=== PATIENT | male | born 1955 | race Caucasian/White ===

== ENCOUNTER 2017-04-09 18:31 | Inpatient (IN) | payer OTHER, MEDICARE ==
[~2017-04-09] VITALS: Ht 177.8 cm; Wt 79.9 kg
[~2017-04-09 18:31] MED LIST: ABILIFY MAINTE400 M1 IM; ASPIRIN EC81 M1 PO; ATORVASTATIN CA40 M1 PO; BENZTROPINE ME0.5 M1 PO; BENZTROPINE2 MG/2 ML IM; CARBAMAZEPINE100 M2 PO; CARVEDILOL12.5 M1 PO; CARVEDILOL25 M1 PO; EPOGEN4000 UNIT/ IV; FAMOTIDINE20 M1 PO; FERROUS SULFAT325 M3 PO; FUROSEMIDE80 M1 PO; GABAPENTIN100 M2 PO; GABAPENTIN300 M2 PO; HALOPERIDOL5 MG/1 M1 IM; HYDRALAZINE HCL10 M1 PO; IBUPROFEN600 M1 PO; LABETALOL HCL100 M1 PO; LABETALOL HCL200 M1 PO; LAMICTAL100 M2 PO; LAMICTAL150 M1 PO; LAMOTRIGINE150 M1 PO; LASIX40 M1 PO; LISINOPRIL20 M1 PO; METOLAZONE5 M1 PO; NEPHRO-VITE RX1 EACH PO; NEPHRO-VITE TA0.8 MG PO; NEURONTIN300 M1 PO; NITROGLYCERIN1 EACH TOP; NORVASC10 M1 PO; OMEPRAZOLE20 M2 PO; OXCARBAZEPINE600 M1 PO; PROCRIT3000 UNIT/ IV; PROPRANOLOL HCL10 M1 PO; QUETIAPINE FUM100 M1 PO; QUETIAPINE FUMA25 M1 PO; RENA-VITE RX T1 EACH PO; RENVELA800 M1 PO; SENSIPAR30 M1 PO; SENSIPAR60 M1 PO; SEROQUEL200 M1 PO; SEROQUEL400 M1 PO; SEROQUEL50 M1 PO; SODIUM POL15 GM/601 PO; SPIRIVA18 MCG INH; TRILEPTAL150 M1 PO; TRILEPTAL300 M1 PO; TYLENOL325 M1 PO; VELPHORO500 M1 PO; VENTOLIN HFA18 GM INH
--- NOTE | 2017-04-09 19:08 | ED DYSPNEA/ASTHMA COMPLAINT ---
History of Present Illness General Chief Complaint: Dyspnea (COPD, CHF, Other) Stated Complaint: "I CANT BREATHE" Source: patient Exam Limitations: no limitations Vital Signs & Intake/Output Vital Signs & Intake/Output Vital Signs Date Time Temp Pulse Resp B/P B/P Pulse O2 O2 Flow FiO2 Mean Ox Delivery Rate 04/09 2150 Room Air 04/09 1835 98.1 105 22 165/92 96 Room Air Allergies Coded Allergies: chlorpromazine (From THORAZINE) (Severe, ANAPHYLAXIS 02/19/17) trifluoperazine (From STELAZINE) (Severe, ANAPHYLAXIS 10/03/15) lithium (PER PT "KILLED MY KIDNEYS" 01/24/17) venom-honey bee (BEE VENOM (HONEY BEE)) (UNKNOWN 10/03/15) Reconcile Medications Albuterol Sulfate (Ventolin Hfa) 90 MCG HFA.AER.AD 1 INHAL INH Q4P PRN asthma Aripiprazole (Abilify Maintena) 400 MG SUSER.VIAL 400 MG IM Q30D ANXIETY ( Reported) Aspirin (Ecotrin*) 81 MG TABLET.DR 1 TAB PO 0800 cardiac prohylaxis Atorvastatin Calcium 40 MG TABLET 1 CAP PO 1700 HYPERCHOLESTEROLEMIA Benztropine Mesylate 0.5 MG TABLET 1 TAB PO BID EPSE (Reported) Cinacalcet HCl (Sensipar) 30 MG TABLET 1 TAB PO DAILY dialysis Epoetin Florentino (Procrit) 3,000 UNIT/ML VIAL 3,000 UNIT IV TuThSa anemia Furosemide (Lasix) 40 MG TABLET 2 TAB PO 0800,2200 DIURETIC Gabapentin 300 MG CAPSULE 1 TAB PO AT BEDTIME insomnia Hydralazine HCl 10 MG TABLET 2 TAB PO BID htn Labetalol HCl 100 MG TABLET 1 TAB PO BID htn Lamotrigine (Lamictal) 150 MG TABLET 1 TAB PO DAILY THYMOLEPTIC Nephro-Vitamins (Nephro-Tara Tablet) 0.8 MG TABLET 1 TAB PO 1000 supplement Nitroglycerin (Nitroglycerin Patch) 0.4 MG/HOUR PATCH.TD24 1 PAT TOP DAILY NEEDED PRN CHEST PAIN Oxcarbazepine (Trileptal) 150 MG TABLET 4 TAB PO BID mood stabilizer Propranolol HCl 10 MG TABLET 1 TAB PO BID htn Quetiapine Fumarate 100 MG TABLET 4 TAB PO AT BEDTIME mood stabilizer Sevelamer Carbonate (Renvela) 800 MG TABLET 3 TAB PO TIDAC DIALYSIS Sevelamer Carbonate (Renvela) 800 MG TABLET 2 TAB PO Q4P PRN dialysis Tiotropium [place] (Spiriva) 18 MCG CAP.W.DEV 1 INHAL INH DAILY copd Triage Note: PT WAS DISCHARGED FROM [facility] AFTER HAVING CARDIAC CATH, PT IS DIALYSIS PT AND HAD DIALYSIS TODAY, COMPLAINS THAT HE CANT BREATHE O2 SAT 96 % ON RA. CATH WAS 03/27/17. WENT INTO CARDIAC ARREST WHILE IN [facility] AND WAS IN ICU X 6 DAYS Triage Nurses Notes Reviewed? yes Onset: Gradual Duration: hour(s): Timing: recent history Severity: moderate Activities at Onset: none Prior Episodes/Possible Cause: occasional episodes Modifying Factors: Improves With: rest. Associated Symptoms: "I couldn't breathe" HPI: 61 yo gentleman cardiac arrest in Feb 2017, s/p stents at [facility] presents with 3-4 hours of shortness of breath, now resolved. He notes, "I just could breathe." Without wheezing, cough, phlegm, orthopnea. He had dialysis today which was uneventful. He is otherwell, without fever, chills, nausea, vomiting, diarrhea, syncopal symptoms. Past History Travel History Traveled to [place] past 21 day No Medical History Any Pertinent Medical History? 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 History of MRSA: No History of VRE: No History of CDIFF: No Influenza Vaccine: 01/29/17 Surgical History Surgical History: Lt. AV fistula Psychosocial History Who do you live with Brother Services at Home None What is your primary language Uzbek Tobacco Use: Never used ETOH Use: denies use Illicit Drug Use: denies illicit drug use Family History Family History, If Any: FATHER (hypertension). ; Cause: Renal cell cancer. BROTHER (GB stone, bipolar disorder, premature coronary artery disease). Hx Contributory? No Review of Systems Review of Systems Constitutional: Reports: no symptoms. EENTM: Reports: no symptoms. Respiratory: Reports: no symptoms. Cardiovascular: Reports: no symptoms. GI: Reports: no symptoms. Genitourinary: Reports: no symptoms. Musculoskeletal: Reports: no symptoms. Skin: Reports: no symptoms. Neurological/Psychological: Reports: no symptoms. Hematologic/Endocrine: Reports: no symptoms. Immunologic/Allergic: Reports: no symptoms. All Other Systems: Reviewed and Negative Physical Exam Physical Exam General Appearance: well developed/nourished, no apparent distress Head: atraumatic, normal appearance Eyes: Bilateral: normal appearance. Ears, Nose, Throat: normal pharynx, normal ENT inspection Neck: normal inspection, supple, full range of motion Respiratory: mild rhonchi, no wheeze, no rales Cardiovascular: regular rate/rhythm Gastrointestinal: normal bowel sounds, soft, non-tender, no organomegaly Rectal: BLACK STOOL, GUIAC POSITIVE. Extremities: normal inspection, normal capillary refill, normal range of motion, no edema Neurologic/Psych: no motor/sensory deficits, awake, alert, oriented x 3 Skin: intact, normal color, warm/dry Core Measures ACS in differential dx? Yes No ASA d/t asa ordered CVA/TIA Diagnosis No Sepsis Present: No Sepsis Focused Exam Completed? No Progress Differential Diagnosis: asthma, AMI, CHF, COPD, unstable angina Plan of Care: Orders Procedure Date/time Status TYPE & SCREEN (NOT X-MATCH) 04/09 220 Active LEUKOCYTE POOR (PACKED CELLS) 04/09 210 Active Telemetry/Flying Teacher 04/09 185 Active TROPONIN LEVEL 04/09 184 Complete COMPREHENSIVE METABOLIC PANEL 04/09 184 Complete CBC WITHOUT DIFFERENTIAL 04/09 1843 Complete EKG 04/09 183 Active Laboratory Tests 04/09/172025: CBC w Diff NO MAN DIFF REQ, RBC 1.75 L, MCV 91.8, MCH 31.2 H, RDW 20.0 H, MPV 7.7, Gran % 68.0, Lymphocytes % 19.1 L, Monocytes % 8.1, Eosinophils % 4.4, Basophils % 0.4, Absolute Granulocytes 5.9, Absolute Lymphocytes 1.7, Absolute Monocytes 0.7 H, Absolute Eosinophils 0.4, Absolute Basophils 0, PUBS MCHC 34.0 04/09/171946: Anion Gap 13, Estimated GFR 10 L, BUN/Creatinine Ratio 16.2, Glucose 91, Calcium 8.1 L, Total Bilirubin 0.5, AST 23, ALT 27, Alkaline Phosphatase 182 H , Troponin I 0.03, Total Protein 5.2 L, Albumin 2.8 L, Globulin 2.4, Albumin/ Globulin Ratio 1.2 Diagnostic Imaging: Viewed by Me: Radiology Read. Discussed w/RAD: Radiology Read. CXR Impression: RIGHT SIDED INFILTRATE VS ATELECTASIS (most likely atelectasis) FULL REPORT BELOW PATIENT: PURA DONALDSON PRESENT AGE : 61 PATIENT ACCOUNT NO: [id number] : 59 LOCATION: [facility] ORDERING PHYSICIAN: Shyam Nicolas MD SERVICE DATE: 04/09/17 EXAM TYPE: RAD - XRY-PORTABLE CHEST XRAY EXAMINATION: XR PORTABLE CHEST CLINICAL INFORMATION: Chest pain. COMPARISON: Chest x-ray from 03/10/2017. TECHNIQUE: Portable frontal view of the chest was obtained. FINDINGS: There is mild patchy opacity in the right lung base. The left lung is clear. The cardiomediastinal silhouette is unchanged compared to the prior study. The central pulmonary vasculature appear normal. There may be a small right-sided subpulmonic pleural effusion. No acute osseous abnormality is seen. IMPRESSION: Mild patchy opacity in the right lower lobe is nonspecific and may be due to pneumonia, aspiration, or atelectasis. Clinically correlate. Suspected small subpulmonic pleural effusion on the right side. DICTATED BY: Shyam Powell MD DATE/TIME DICTATED:04/09/171936 MOLD RUNNER:IZABEL DATE/TIME TRANSCRIBED:04/09/171936 CONFIDENTIAL, DO NOT COPY WITHOUT APPROPRIATE AUTHORIZATION. <Electronically signed in Other Vendor System> SIGNED BY: Shyam Powell MD 04/09/171941 Initial ED EKG: non specific conduction delay. Departure Departure Disposition: STILL A PATIENT Condition: Stable Clinical Impression Primary Impression: Dyspnea Secondary Impressions: Anemia, GI bleed, Unstable angina Referrals: Ashok Durand MD (PCP/Family) Departure Forms: Customer Survey General Discharge Information Comments 04/09/17, 22:10... discussed with dr. sherry oliveros (GI). pt stable for gen med, scope in AM, will not be able to d/c his antiplatlet agents due to recent cardiac stent. Admission Note Spoke With: Ashok Durand MD Documentation of Exam: Documentation of any treatments & extenuating circumstances including Concerns Regarding Discharge (functional status, medication knowledge or non-compliance, living conditions, etc.) that warrant an admission rather than observation: pt with esrd, on hemodialysis, recent cardiac arrest, with hct 16.... not orthostatic... pt merits blood transfusion, serial trops/ekg, cards, gi, renal eval in AM. Critical Care Note Critical Care Note Critical Care Time: 30-74 min
--- NOTE | 2017-04-09 19:42 | RADIOLOGY REPORT ---
EXAMINATION: XR PORTABLE CHEST CLINICAL INFORMATION: Chest pain. COMPARISON: Chest x-ray from 03/10/2017. TECHNIQUE: Portable frontal view of the chest was obtained. FINDINGS: There is mild patchy opacity in the right lung base. The left lung is clear. The cardiomediastinal silhouette is unchanged compared to the prior study. The central pulmonary vasculature appear normal. There may be a small right-sided subpulmonic pleural effusion. No acute osseous abnormality is seen. IMPRESSION: Mild patchy opacity in the right lower lobe is nonspecific and may be due to pneumonia, aspiration, or atelectasis. Clinically correlate. Suspected small subpulmonic pleural effusion on the right side.
[2017-04-09 20:38] LABS: ABSOLUTE BASOPHIL COUNT 0 /CUMM (0.0-0.2); ABSOLUTE EOSINOPHIL COUNT 0.4 /CUMM (0.0-0.7); ABSOLUTE GRANULOCYTE CT 5.9 /CUMM (1.4-6.5); ABSOLUTE LYMPH COUNT 1.7 /CUMM (1.2-3.4); ABSOLUTE MONOCYTE COUNT 0.7 /CUMM (0.10-0.60); BASOPHIL % 0.4 % (0.0-2.0); EOSINOPHIL % 4.4 % (0-5); MEAN CORPUSCULAR HGB 31.2 PG (27.0-31.0); MEAN CORPUSCULAR VOLUME 91.8 FL (80.0-94.0); MEAN PLATELET VOLUME 7.7 FL (7.4-10.4); PLATELET COUNT 315 /CUMM (130-400); RED BLOOD CELL CT 1.75 /CUMM (4.70-6.10); WHITE BLOOD CELL COUNT 8.7 /CUMM (4.8-10.8)
[2017-04-09 20:46] LABS: HEMATOCRIT 16.1 % (42-52)
--- NOTE | 2017-04-09 22:31 | History & Physical ---
See Addendum David FLEMING,[facility] 04/09/17 7781: General Information and HPI MD Statement: I have seen and personally examined PURA DONALDSON and documented this H&P. The patient is a 61 year old M who presented with a patient stated chief complaint of [SOB]. Source of Information: patient Exam Limitations: ?dementia as patient is unable to remember name of several of his healthcare providers History of Present Illness: 61 yo M active smoker with pmhx of ESRD on dialysis, HFrEF (EF 45-50% on ) hypertension, hyperlipidemia, bipolar disorder, asthma, COPD, seizure history, depression, recently went into cardiac arrest on the [employer] for stent placement presenting for shortness of breath. The patient states that he has been feeling shortness of breath the past 2 weeks of little exertion. Also complaints of chest pain during this time which is worse with exertion and radiating to his left neck. The emergency department patient's hemoglobin and hematocrit were 5.1/16.1. The patient denies any bleeding and states that his stools have been normal colored. He denies any black, tarry stool or bright red blood per rectum. The patient does state that he has noticed increased bruising in particularly around his abdominal umbilicus. Patient denies any trauma. He denies any headaches, fevers, chills, abdominal pain, or changes in elimination. The ED physician stated that the patient had guaiac positive black stool. Allergies/Medications Allergies: Coded Allergies: chlorpromazine (From THORAZINE) (Severe, ANAPHYLAXIS 02/19/17) trifluoperazine (From STELAZINE) (Severe, ANAPHYLAXIS 10/03/15) lithium (PER PT "KILLED MY KIDNEYS" 01/24/17) venom-honey bee (BEE VENOM (HONEY BEE)) (UNKNOWN 10/03/15) Home Med list Albuterol Sulfate (Ventolin Hfa) 90 MCG HFA.AER.AD 1 INHAL INH Q4P PRN asthma Aripiprazole (Abilify Maintena) 400 MG SUSER.VIAL 400 MG IM Q30D ANXIETY ( Reported) Aspirin (Ecotrin*) 81 MG TABLET.DR 1 TAB PO 0800 cardiac prohylaxis Atorvastatin Calcium 40 MG TABLET 1 CAP PO 1700 HYPERCHOLESTEROLEMIA Benztropine Mesylate 0.5 MG TABLET 1 TAB PO BID EPSE (Reported) Cinacalcet HCl (Sensipar) 30 MG TABLET 1 TAB PO DAILY dialysis Epoetin Florentino (Procrit) 3,000 UNIT/ML VIAL 3,000 UNIT IV TuThSa anemia Furosemide (Lasix) 40 MG TABLET 2 TAB PO 0800,2200 DIURETIC Gabapentin 300 MG CAPSULE 1 TAB PO AT BEDTIME insomnia Hydralazine HCl 10 MG TABLET 2 TAB PO BID htn Labetalol HCl 100 MG TABLET 1 TAB PO BID htn Lamotrigine (Lamictal) 150 MG TABLET 1 TAB PO DAILY THYMOLEPTIC Nephro-Vitamins (Nephro-Tara Tablet) 0.8 MG TABLET 1 TAB PO 1000 supplement Nitroglycerin (Nitroglycerin Patch) 0.4 MG/HOUR PATCH.TD24 1 PAT TOP DAILY NEEDED PRN CHEST PAIN Oxcarbazepine (Trileptal) 150 MG TABLET 4 TAB PO BID mood stabilizer Propranolol HCl 10 MG TABLET 1 TAB PO BID htn Quetiapine Fumarate 100 MG TABLET 4 TAB PO AT BEDTIME mood stabilizer Sevelamer Carbonate (Renvela) 800 MG TABLET 3 TAB PO TIDAC DIALYSIS Sevelamer Carbonate (Renvela) 800 MG TABLET 2 TAB PO Q4P PRN dialysis Tiotropium [place] (Spiriva) 18 MCG CAP.W.DEV 1 INHAL INH DAILY copd Past History Travel History Traveled to [place] past 21 day No Medical History Neurological: SEIZURE ONCE 20 YRS AGO EENT: NONE Cardiovascular: hypertension, hyperlipidemia Respiratory: asthma, COPD Gastrointestinal: NONE Hepatic: NONE Renal: ESRD on HD, renal masses --> onchocytyomas Musculoskeletal: NONE Psychiatric: anxiety, bipolar disease (WITH PSYCHOTIC FEATURES), depression Endocrine: hypopituitarism, HYPERPARATHROIDISM Blood Disorders: NONE Cancer(s): bilateral renal masses which were 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 History of MRSA: No History of VRE: No History of CDIFF: No Surgical History Surgical History: Lt. AV fistula Past Family/Social History Family History Relations & Conditions if any FATHER (hypertension). ; Cause: Renal cell cancer. BROTHER (GB stone, bipolar disorder, premature coronary artery disease). Psychosocial History Services at Home: None Primary Language: Tongan ETOH Use: denies use Illicit Drug Use: denies illicit drug use Functional Ability ADLs Independent: dressing, eating, toileting, bathing. Ambulation: independent Review of Systems Review of Systems Constitutional: Reports: see HPI. Denies: chills, fever. Cardiovascular: Reports: chest pain. Denies: edema, palpitations. Respiratory: Reports: short of breath. Denies: cough. GI: Reports: no symptoms, see HPI (abd bruising). Genitourinary: Reports: no symptoms. Musculoskeletal: Reports: see HPI. Exam & Diagnostic Data Last 24 Hrs of Vital Signs/I&O Vital Signs Date Time Temp Pulse Resp B/P B/P Pulse O2 O2 Flow FiO2 Mean Ox Delivery Rate 04/09 2311 99.2 100 20 170/98 97 Room Air 04/09 2150 Room Air 04/09 1835 98.1 105 22 165/92 96 Room Air Intake & Output 04/10 0800 04/10 0000 04/09 1600 Intake Total 350 Output Total Balance 350 Intake, Blood 350 Product Patient 210 lb Weight Physical Exam General Appearance Alert, Cooperative, No Acute Distress Skin inferior umbilicius bruising Cardiovascular tachycardia Lungs Clear to Auscultation, Normal Air Movement Abdomen Normal Bowel Sounds, Soft, No Tenderness Extremities L arm fistula Last 24 Hrs of Labs/Freddy: Laboratory Tests 04/09/172025: CBC w Diff NO MAN DIFF REQ, RBC 1.75 L, MCV 91.8, MCH 31.2 H, RDW 20.0 H, MPV 7.7, Gran % 68.0, Lymphocytes % 19.1 L, Monocytes % 8.1, Eosinophils % 4.4, Basophils % 0.4, Absolute Granulocytes 5.9, Absolute Lymphocytes 1.7, Absolute Monocytes 0.7 H, Absolute Eosinophils 0.4, Absolute Basophils 0, PUBS MCHC 34.0 04/09/171946: Anion Gap 13, Estimated GFR 10 L, BUN/Creatinine Ratio 16.2, Glucose 91, Calcium 8.1 L, Total Bilirubin 0.5, AST 23, ALT 27, Alkaline Phosphatase 182 H , Troponin I 0.03, Total Protein 5.2 L, Albumin 2.8 L, Globulin 2.4, Albumin/ Globulin Ratio 1.2 Assessment/Plan Assessment: A: 61 yo M active smoker with pmhx of ESRD on dialysis, HFrEF (EF 45-50% on ) hypertension, hyperlipidemia, bipolar disorder, asthma, COPD, seizure history, depression, recently went into cardiac arrest on the [employer] for stent placement presenting for shortness of breath found to have anemia with guaiac positive stool. P: #anemia (symptomatic) Could be secondary to dual antiplatelet therapy post stent placement T99 0.2, heart rate 100, RR 20, BP 170/98, 97% RA H/H 5.5/16.1 with guaciac + stool -Transfuse 3 units of blood, assess respiratory status after second unit and give IV Lasix if necessary -Hemoglobin goal greater than 8 given cardiac history -GI informed (rhina) -Protonix IV 40 daily #atypical chest pain, r/o ACS Recent cardiac arrest during cardiac catheter with stent placement at [facility] requiring ICU for 6 days trop .03 - EKG trops x1 7AM -confirm medication list in a.m. particularly antiplatelets -pt states he will get it from his brother -obtain records from [facility] regarding cardiac arrest -Cardiology consult (Dr. Garcia's group) #ESRD L arm fistula BUN 94, creatinine 5.8, -Consult nephrology -Continue Nephro-Tara, sevelamer, Sensipar, Procrit injections #bipolar disorder/depression -cont benztropine, ariprazole, seroquel -psych consult in a.m. #chf -cont lasix, aspirin #copd -cont spiriva, albuterol #HTN -cont propanoll, labetalol and hydralazine #hld -cont atorvastatin #seizure hx -cont oxacarbazpine, lamotrigeine #gerd -cont protonix #neuropathy -cont gabapentin #DVT prophylaxis -Alps #Full code As Ranked By This Provider Problem List: 1. Symptomatic anemia Core Measures/Misc (01/14) Acute Coronary Syndrome ACS Diagnosis: No Congestive Heart Failure Congestive Heart Failure Diagnosis No Cerebrovascular Accident CVA/TIA Diagnosis: No VTE (View Protocol) VTE Risk Factors Acute Medical Illness No Mechanical VTE Prophylaxis d/t N/A MechProphylax Ordered No VTE Pharm Prophylaxis d/t Bleeding (Active) Sepsis (View protocol) Sepsis Present: No Ty Walsh 04/10/17 0122: Resident Review Statement Resident Statement: examined this patient, discussed with general intern Other Findings: Mr Shakir is a 61 yo M active smoker with past medical history of ESRD on dialysis, HFrEF (EF 45-50% on 02/06/17) hypertension, hyperlipidemia, bipolar disorder, status post recent cardiac catheter and stents at [facility] in February 2017, cardiac arrest while in the catheter lab requiring ICU stay presented to the hospital with chief complaint of worsening shortness of breath for the last 2-3 days. Patient reports that he has been gradually feeling short of breath over the last few days. Symptoms are more pronounced during exertion and activity. Today he had dialysis, and states post dialysis or shortness of breath became worse. He does complain of some nonspecific chest pain in the center of the chest not associated with any palpitations, nausea, vomiting, abdominal pain, diarrhea or constipation. Patient denies any episode of blood in stool or urine. He recently had a cardiac catheterization and stent placement at [facility] about a week ago. Patient coded on the table and required ICU stay for about 6 days. Patient reports that post the procedure he has been doing fine. He has bipolar disorder at baseline and is unclear of the medications that he is supposed to take after the catheterization. He is unable to give us any details about the whole episode. In the ED vitals temperature 98.1, pulse 105, respiration 22, blood pressure 165 /92, saturating 96% on room air Labs :H&H of 5. 5/16.1( baseline around 9 ), sodium 135, potassium 4.5, creatinine 5.8(baseline), BUN 94, alkaline phosphatase 182, troponin 0.03 EKG normal sinus rhythm with no specific ST-T wave changes. Chest x-ray Showed mild patchy opacity in the right lower lobe nonspecific may be due to pneumonia/aspiration. Small subpulmonic pleural effusion on the right side. Patient received 325 aspirin daily. Physical exam General: Awake, alert, oriented 3, no acute distress HEENT: PERRLA, EOMI, no JVD Chest: Clear breath sounds CVS: S1 and S2 heard, regular, Extremities: No edema Assessment and plan #1 Symptomatic anemia: Guaiac positive in the ER, dark stools. Could be secondary to dual antiplatelet therapy post stent placement. -Admit patient to telemetry -Vitals per protocol -2 wide bore IVs -Patient being transfused 3 units of blood in the ED.. Given significant cardiac history the goal would be around 8 -Continue Protonix IV 40 daily -ED physician spoke to Dr. Owen who would be seeing the patient in a.m. -Stat GI consult if patient starts bleeding or becomes hemodynamically unstable #2 Recent cardiac arrest during cardiac catheter with stent placement at [facility] requiring ICU stay now complaining of atypical chest pain -Closely monitor on telemetry -3 sets of troponin and EKG to rule out ACS -Patient is unable to give any details of the incident -His med list does not does have Plavix. Please confirm medication list in a.m. -We'll obtain records from [facility] regarding the whole episode. -Cardiology consult with Dr. Davis's group in a.m. #3 Atypical chest pain -Close monitoring on telemetry -3 sets of troponin and EKG to rule out ACS -Nitro-Bid Ointment if chest pain continues -Continue aspirin and beta bharat -Cardiology consult in a.m. -No EKG changes, negative troponin so far #4 end-stage renal disease on dialysis -Patient is getting a lot of volume blood transfusion. -Please consult nephrology in a.m. -Continue Nephro-Tara and sevelamer and Sensipar -Continue Procrit injections #5 history of bipolar disorder/depression -Continue home medications Cogentin, Abilify, Lamictal , Seroquel, Neurontin -psych consult in a.m. #6 History of hypertension Will Continue the patients home medications of labetalol and hydralazine 20mg BID DVT prophylaxis Alps Renal dialysis diet Full code Verona Quiroz 04/16/172047: Attending MD Review Statement Attending Statement Attending Assessment/Plan: I have not seen this patient. This H and P is assigned to me by mistake. Please see Dr. Durand's recommendations.
--- NOTE | 2017-04-10 08:36 | PN- Housestaff ---
Subjective Follow-up For: Symptomatic anemia. Atypical chest pain End-stage renal disease Tele-Events Since Last Visit: No overnight events Subjective: No overnight events patient remained afebrile overnight. Patient seen and examined this morning on bedside. He was lying in bed comfortably. Patient still complaining of exertional dyspnea but he is seeing his feeling more better now and also complaining of little bit pressure in the chest but he denied pain in the chest, short of breath, nausea, vomiting, abdominal pain, chills, fever and dysuria. Patient received 3 blood transfusions in ED. We will follow his CBCs after the blood transfusion Review of Systems Constitutional: Reports: no symptoms. EENTM: Reports: no symptoms. Cardiovascular: Reports: see HPI. Respiratory: Reports: see HPI. Gastrointestinal: Reports: no symptoms. Genitourinary: Reports: no symptoms. Neurological/Psychological: Reports: no symptoms. Objective Last 24 Hrs of Vital Signs/I&O Vital Signs Date Time Temp Pulse Resp B/P B/P Pulse O2 O2 Flow FiO2 Mean Ox Delivery Rate 04/10 1034 98.2 96 18 154/86 04/10 1034 98.2 96 18 154/86 04/10 1034 98.2 96 18 154/86 04/10 1033 98.2 96 18 154/86 98 Room Air 04/10 0923 97.7 98 18 139/79 98 Room Air 04/10 0824 98.6 94 18 143/80 98 Room Air 04/10 0500 98.3 108 20 145/94 99 Room Air 04/10 0414 98.1 04/10 0355 98.1 110 20 167/89 100 Room Air 04/10 0239 99.2 04/09 2311 99.2 100 20 170/98 97 Room Air 04/09 2150 Room Air 04/09 1835 98.1 105 22 165/92 96 Room Air Intake & Output 04/10 1600 04/10 0800 04/10 0000 Intake Total 350 Output Total Balance 350 Intake, Blood 350 Product Patient 210 lb Weight Physical Exam General Appearance: Alert, Oriented X3, Cooperative, No Acute Distress Skin Temp/Moisture Exam: Warm/Dry HEENT: Atraumatic, PERRLA, EOMI Neck: Supple Cardiovascular: Normal S1, Normal S2 Lungs: Clear to Auscultation Abdomen: Soft, No Tenderness Neurological: Normal Speech, Normal Tone, Sensation Intact Extremities: No Edema Assessment/Plan Assessment: 61 yo M active smoker with pmhx of ESRD on dialysis, HFrEF (EF 45-50% on ) hypertension, hyperlipidemia, bipolar disorder, asthma, COPD, seizure history, depression, recently went into cardiac arrest on the [employer] for stent placement presenting for shortness of breath found to have anemia with guaiac positive stool. Symptomatic anemia: -Patient came in with an H&H 5.5/16.1 and having exertional dyspnea and atypical chest pain. -Plan to give the patient blood transfusion. He received 3 blood transfusion in ED -We will keep the hemoglobin more than 8 considering patient's significant cardiac history in the past. -We will check the CBCs for H&H after blood transfusion. -We will get the GI consultation to rule out any active bleeding in GI tract as patient having history of black stools. -We will monitor the patient's if he become unstable hemodynamically we will give patient blood transfusion or call GI. -IV Protonix -No NSAIDs Atypical chest pain: -We will do serial EKGs and troponins to rule out any ischemic cardiac injury considering patient's significant past medical history of cardiac ischemia. -We will get the medical records from [facility] regarding patient's cardiac arrest and CPR was done during cardiac cath. -Cardiac consult -Echocardiogram History of end-stage renal disease on dialysis: -We will get the nephrology consult -Patient having AV fistula on left arm -patient is getting dialysis on sunday, and sunday. -We will check the creatinine and BUN we will follow the BEP. -We will continue the Nephro-Tara, Savelamer, sensipar and procrit injection History of bipolar disorder: We'll continue the benztropine, aripiprazole and seroquel History of CHF with systolic dysfunction, hyperlipidemia and hypertension: To continue the Lasix and aspirin -We will continue propranolol labetalol and hydralazine for hypertension. -Continue Lipitor for hyperlipidemia History of seizures: -We will continue oxcarbazpine and lamotrigine DVT prophylaxis: Mechanical and subcutaneous heparin CODE STATUS: Full code Problem List: 1. Symptomatic anemia 2. Atypical chest pain Pain Ratin Pain Location: NONE Pain Goal: Remain pain free Pain Plan: OXYCODONE FOR MILD PAIN Tomorrow's Labs & Rationales: CBC/BEP
[2017-04-10 09:45] LABS: ABSOLUTE BASOPHIL COUNT 0.1 /CUMM (0.0-0.2); ABSOLUTE EOSINOPHIL COUNT 0.3 /CUMM (0.0-0.7); ABSOLUTE GRANULOCYTE CT 4.7 /CUMM (1.4-6.5); ABSOLUTE LYMPH COUNT 1.5 /CUMM (1.2-3.4); ABSOLUTE MONOCYTE COUNT 0.5 /CUMM (0.10-0.60); BASOPHIL % 0.8 % (0.0-2.0); EOSINOPHIL % 4.2 % (0-5); GRANULOCYTE % 66.5 % (42.2-75.2); MEAN CORPUSCULAR HGB 29.9 PG (27.0-31.0); MEAN CORPUSCULAR HGB CONC 34.5 G/DL (33.0-37.0); MEAN PLATELET VOLUME 7.1 FL (7.4-10.4); PLATELET COUNT 282 /CUMM (130-400); RBC DISTRIBUTION WIDTH 20.1 % (11.5-14.5); WHITE BLOOD CELL COUNT 7.1 /CUMM (4.8-10.8)
[2017-04-10 09:57] LABS: HEMATOCRIT 18.1 % (42-52); MEAN CORPUSCULAR VOLUME 86.7 FL (80.0-94.0)
--- NOTE | 2017-04-10 10:08 | Admission Certification ---
Admission Certification Certification Statement - As attending physician, I certify that at the time of - admission, based on clinical presentation, severity of - symptoms, need for further diagnostic testing and - therapeutic interventions, and risk of adverse outcomes - without in-hospital treatment, in my clinical assessment, - this patient requires an acute hospital stay for a minimum - of two nights or longer. I have also considered psychsocial - factors such as support system, advanced age, financial - issues, cognitive issues, and failed out-patient treatments, - past re-admission history, safety of patient, and lack of - compliance as applicable. Specific rationale supporting this admission is: Shortness of breath, symptomatic anemia in a patient with chronic kidney insufficiency on hemodialysis and coronary artery disease
--- NOTE | 2017-04-10 10:12 | PN- Att Addend ---
Attending Addendum Attending Brief Note 61-year-old white male with many comorbidities, chronic kidney insufficiency on hemodialysis 3 times a week. History of CHF coronary artery disease recent stent with complications. Again comes in stating that he is short of breath , in the ER his saturations were okay, was found to be very anemic. Patient will be admitted will be cautiously transfused monitor for CHF notify nephrology for his hemodialysis, and get a GI consultation also have cardiology follow the patient. 24 TOTALS 04/10 0000 04/09 0000 Intake Total Output Total Balance Patient 210 lb Weight Laboratory Tests 04/10/17 0913: CBC w Diff NO MAN DIFF REQ, RBC 2.10 L, MCV 86.7, MCH 29.9, RDW 20.1 H, MPV 7.1 L, Gran % 66.5, Lymphocytes % 20.9, Monocytes % 7.6, Eosinophils % 4.2, Basophils % 0.8, Absolute Granulocytes 4.7, Absolute Lymphocytes 1.5, Absolute Monocytes 0.5, Absolute Eosinophils 0.3, Absolute Basophils 0.1, PUBS MCHC 34.5 04/10/17 0700: Troponin I Cancelled 04/10/17 0652: Anion Gap 15, Estimated GFR 8 L, BUN/Creatinine Ratio 18.2, Troponin I 0.02 04/10/17 0145: Troponin I 0.03 04/09/172025: CBC w Diff NO MAN DIFF REQ, RBC 1.75 L, MCV 91.8, MCH 31.2 H, RDW 20.0 H, MPV 7.7, Gran % 68.0, Lymphocytes % 19.1 L, Monocytes % 8.1, Eosinophils % 4.4, Basophils % 0.4, Absolute Granulocytes 5.9, Absolute Lymphocytes 1.7, Absolute Monocytes 0.7 H, Absolute Eosinophils 0.4, Absolute Basophils 0, PUBS MCHC 34.0 04/09/17 194: Anion Gap 13, Estimated GFR 10 L, BUN/Creatinine Ratio 16.2, Glucose 91, Calcium 8.1 L, Total Bilirubin 0.5, AST 23, ALT 27, Alkaline Phosphatase 182 H , Troponin I 0.03, Total Protein 5.2 L, Albumin 2.8 L, Globulin 2.4, Albumin/ Globulin Ratio 1.2 Vital Signs Date Time Temp Pulse Resp B/P B/P Pulse O2 O2 Flow FiO2 Mean Ox Delivery Rate 04/10 923 97.7 98 18 139/79 98 Room Air 04/10 0824 98.6 94 18 143/80 98 Room Air 04/10 0500 98.3 108 20 145/94 99 Room Air 04/10 0414 98.1 04/10 0355 98.1 110 20 167/89 100 Room Air 04/10 0239 99.2 04/09 2311 99.2 100 20 170/98 97 Room Air 04/09 2150 Room Air 04/09 1835 98.1 105 22 165/92 96 Room Air
[2017-04-10 13:20] VITALS: BP 130/72
[2017-04-10 14:51] LABS: ABSOLUTE EOSINOPHIL COUNT 0.3 /CUMM (0.0-0.7); ABSOLUTE GRANULOCYTE CT 5.5 /CUMM (1.4-6.5); ABSOLUTE LYMPH COUNT 1.7 /CUMM (1.2-3.4); MEAN CORPUSCULAR VOLUME 87.3 FL (80.0-94.0)
[2017-04-10 14:55] LABS: ABSOLUTE BASOPHIL COUNT 0.1 /CUMM (0.0-0.2); ABSOLUTE MONOCYTE COUNT 0.8 /CUMM (0.10-0.60); BASOPHIL % 0.8 % (0.0-2.0); EOSINOPHIL % 3.1 % (0-5); GRANULOCYTE % 66.2 % (42.2-75.2); MEAN CORPUSCULAR HGB 29.5 PG (27.0-31.0); MEAN CORPUSCULAR HGB CONC 33.8 G/DL (33.0-37.0); PLATELET COUNT 251 /CUMM (130-400); RBC DISTRIBUTION WIDTH 18.5 % (11.5-14.5); RED BLOOD CELL CT 2.18 /CUMM (4.70-6.10); WHITE BLOOD CELL COUNT 8.3 /CUMM (4.8-10.8)
--- NOTE | 2017-04-10 15:50 | Cons- Gastroenterology ---
General Information and HPI Consulting Request Date of Consult: 04/10/17 Requested By: Ashok Durand MD Reason for Consult: 1. Acute on Chronic Anemia 2. Hemoccult Positive Stool 3. Precipitous Drop in Hemoglobin and Hematocrit Source of Information: patient, old records Exam Limitations: poor historian History of Present Illness: Mr. Steve Sanches is a 61-year-old male with a past medical history of bipolar disorder, chronic kidney disease who is on dialysis 3 times a week. He has a history of chronic anemia with a baseline hemoglobin of around 9.5 as well as a history of coronary artery disease. He was recently admitted to [facility] in [place] where he underwent left heart catheterization and stent placement. He had a cardiac arrest on the table while undergoing cardiac catheterization and was in the ICU for 6 days. He reports that he also underwent EGD and colonoscopy during that admission for evaluation of anemia. No source of GI bleeding was identified. Patient is a poor historian. He also reports that he had an endoscopic evaluation at [facility] proximally 1 year ago but I am unable to find any record of that in the electronic medical record. Patient was discharged from [facility] and according to the biomedical engineering professor, off antithrombotic agents with the exception of aspirin given concerns regarding anemia. Patient presented to the [facility] ED with a chief complaint of increasing shortness of breath. He tells me that he had missed dialysis several times since discharge from [facility]. He did undergone cardiac catheterization on 03/27/2017. He had last been admitted to [facility] on 03/10/2017 with acute systolic congestive heart failure. At that time he had an H&H of 8.9 and 27.4. He is admitted now with an H&H of 5.1 and 16.1. He had a Hemoccult positive stool. He denies melena, bright red blood per rectum, nausea , vomiting, or abdominal pain. He is had no change in bowel habit or stool caliber. He has had no weight loss fever or shaking chills. He had a chest x-ray on admission, the results of which are as follows: IMPRESSION: Mild patchy opacity in the right lower lobe is nonspecific and may be due to pneumonia, aspiration, or atelectasis. Clinically correlate. Suspected small subpulmonic pleural effusion on the right side. Allergies/Medications Allergies: Coded Allergies: chlorpromazine (From THORAZINE) (Severe, ANAPHYLAXIS 02/19/17) trifluoperazine (From STELAZINE) (Severe, ANAPHYLAXIS 10/03/15) lithium (PER PT "KILLED MY KIDNEYS" 01/24/17) venom-honey bee (BEE VENOM (HONEY BEE)) (UNKNOWN 10/03/15) Home Med List: Albuterol Sulfate (Ventolin Hfa) 90 MCG HFA.AER.AD 1 INHAL INH Q4P PRN asthma Aripiprazole (Abilify Maintena) 400 MG SUSER.VIAL 400 MG IM Q30D ANXIETY ( Reported) Aspirin (Ecotrin*) 81 MG TABLET.DR 1 TAB PO 0800 cardiac prohylaxis Atorvastatin Calcium 40 MG TABLET 1 CAP PO 1700 HYPERCHOLESTEROLEMIA Benztropine Mesylate 0.5 MG TABLET 1 TAB PO BID EPSE (Reported) Cinacalcet HCl (Sensipar) 30 MG TABLET 1 TAB PO DAILY dialysis Epoetin Florentino (Procrit) 3,000 UNIT/ML VIAL 3,000 UNIT IV TuThSa anemia Furosemide (Lasix) 40 MG TABLET 2 TAB PO 0800,2200 DIURETIC Gabapentin 300 MG CAPSULE 1 TAB PO AT BEDTIME insomnia Hydralazine HCl 10 MG TABLET 2 TAB PO BID htn Labetalol HCl 100 MG TABLET 1 TAB PO BID htn Lamotrigine (Lamictal) 150 MG TABLET 1 TAB PO DAILY THYMOLEPTIC Nephro-Vitamins (Nephro-Tara Tablet) 0.8 MG TABLET 1 TAB PO 1000 supplement Nitroglycerin (Nitroglycerin Patch) 0.4 MG/HOUR PATCH.TD24 1 PAT TOP DAILY NEEDED PRN CHEST PAIN Oxcarbazepine (Trileptal) 150 MG TABLET 4 TAB PO BID mood stabilizer Propranolol HCl 10 MG TABLET 1 TAB PO BID htn Quetiapine Fumarate 100 MG TABLET 4 TAB PO AT BEDTIME mood stabilizer Sevelamer Carbonate (Renvela) 800 MG TABLET 3 TAB PO TIDAC DIALYSIS Sevelamer Carbonate (Renvela) 800 MG TABLET 2 TAB PO Q4P PRN dialysis Tiotropium [place] (Spiriva) 18 MCG CAP.W.DEV 1 INHAL INH DAILY copd Current Medications: Current Medications Sig/Grace Start time Last Medication Dose Route Stop Time Status Admin Acetaminophen 0 .STK-MED ONE 04/10 0233 DC PO Acetaminophen 325 MG Q6-PRN PRN 04/09 2245 AC 04/10 PO 0239 Albuterol Sulfate 2 PUF Q4P PRN 04/09 2300 AC INH Aripiprazole 10 MG DAILY 04/10 1000 AC 04/10 PO 1034 Aspirin 325 MG ONCE ONE 04/09 2015 DC 12 PO 04/09 Aspirin Buffered 81 MG 0800 04/10 0800 AC 04/10 PO 0824 Atorvastatin Calcium 40 MG 1700 04/10 1700 AC PO Benztropine Mesylate 0.5 MG BID 04/10 1000 AC 04/10 PO 1034 Cinacalcet 30 MG DAILY 04/10 1000 AC 04/10 PO 1034 Epoetin Florentino 8,000 UNIT TUES THURS SAT PRN 04/10 1500 AC IV Furosemide 80 MG 0800,2200 04/10 0800 AC 04/10 PO 0824 Gabapentin 300 MG AT BEDTIME 04/10 2200 DC PO Gabapentin 300 MG AT BEDTIME 04/10 0215 AC 04/10 PO 0239 Hydralazine HCl 20 MG BID 04/10 1000 AC 04/10 PO 1034 Labetalol HCl 100 MG BID 04/10 1000 AC 04/10 PO 1034 Lamotrigine 150 MG DAILY 04/10 1000 AC 04/10 PO 1034 Multivitamins 1 TAB 1000 04/10 1000 AC 04/10 PO 1034 Oxcarbazepine 600 MG BID 04/10 1000 AC 04/10 PO 1034 Pantoprazole Sodium 40 MG DAILY 04/10 1000 AC 04/10 IV 1034 Propranolol HCl 10 MG BID 04/10 1000 AC 04/10 PO 1034 Quetiapine Fumarate 400 MG AT BEDTIME 04/10 2200 DC PO Quetiapine Fumarate 400 MG AT BEDTIME 04/10 0215 AC 04/10 PO 0239 Ramelteon 8 MG AT BEDTIME 04/10 2200 CAN PO Sevelamer Carbonate 2,400 MG TIDAC 04/10 0800 AC 04/10 PO 0824 Sevelamer Carbonate 1,600 MG Q4P PRN 04/09 2300 CAN PO Tiotropium [place] 1 PUF DAILY 04/10 1000 AC 04/10 INH 1034 Past History Travel History Traveled to [place] past 21 day No Medical History Neurological: SEIZURE ONCE 20 YRS AGO EENT: NONE Cardiovascular: hypertension, hyperlipidemia Respiratory: asthma, COPD Gastrointestinal: NONE Hepatic: NONE Renal: ESRD on HD, renal masses --> onchocytyomas Musculoskeletal: NONE Psychiatric: anxiety, bipolar disease (WITH PSYCHOTIC FEATURES), depression Endocrine: hypopituitarism, HYPERPARATHROIDISM Blood Disorders: NONE Cancer(s): 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, the patient was grossly disorganized when presenting to the emergency room and reported that he had not slept in 36 hours. Surgical History Surgical History: Lt. AV fistula Family History Relations & Conditions If Any: FATHER (hypertension). ; Cause: Renal cell cancer. BROTHER (GB stone, bipolar disorder, premature coronary artery disease). Psychosocial History Services at Home: None Primary Language: Japanese Smoking Status: Former Smoker ETOH Use: denies use Illicit Drug Use: denies illicit drug use Functional Ability ADLs Independent: dressing, eating, toileting, bathing. Ambulation: independent Review of Systems Review of Systems Constitutional: Reports: weakness. Denies: chills, diaphoresis, fever, malaise, unexplained weight loss. EENTM: Denies: no symptoms. Cardiovascular: Denies: chest pain, palpitations, syncope. Respiratory: Reports: short of breath. GI: Denies: no symptoms. Musculoskeletal: Denies: no symptoms. Skin: Denies: no symptoms. Neurological/Psychological: Reports: anxiety, emotional problems. Hematologic/Endocrine: Denies: no symptoms. Immunologic/Allergic: Denies: no symptoms. Exam & Diagnostic Data Vital Signs and I&O Vital Signs Date Time Temp Pulse Resp B/P B/P Pulse O2 O2 Flow FiO2 Mean Ox Delivery Rate 04/10 1357 100 Room Air 04/10 1320 97.9 82 2 130/72 100 Room Air 04/10 1240 99 20 134/78 04/10 1034 98.2 96 18 154/86 04/10 1034 98.2 96 18 154/86 04/10 1034 98.2 96 18 154/86 04/10 1033 98.2 96 18 154/86 98 Room Air 04/10 0923 97.7 98 18 139/79 98 Room Air 04/10 0824 98.6 94 18 143/80 98 Room Air 04/10 0500 98.3 108 20 145/94 99 Room Air 04/10 0414 98.1 04/10 0355 98.1 110 20 167/89 100 Room Air 04/10 0239 99.2 04/09 2311 99.2 100 20 170/98 97 Room Air 04/09 2150 Room Air 04/09 1835 98.1 105 22 165/92 96 Room Air Intake & Output 04/10 1600 04/10 0400 04/09 1600 04/09 0400 04/08 1600 04/08 0400 Intake Total 150 350 Output Total 0 Balance 150 350 Intake, Blood 100 350 Product Intake, Oral 50 Number 0 Bowel Movements Output, Urine 0 Patient 213 lb 210 lb Weight Weight Standing Scale Measurement Method Physical Exam General Appearance: well developed/nourished, alert, Patient is on HD Head: normal appearance Ears, Nose, Throat: hearing grossly normal Neck: supple, full range of motion Respiratory: normal breath sounds, chest non-tender, no respiratory distress, lungs clear Cardiovascular: regular rate/rhythm, Normal S1 and S2 without rub, murmur or gallop Gastrointestinal: normal bowel sounds, soft, non-tender, no organomegaly, faint, periumbilical bruising Rectal: deferred Extremities: normal inspection Neurologic/Psych: awake, alert, oriented x 3 Cranial Nerves: Cranial nerves 2-12 grossly intact Skin: intact, warm/dry, pallor Lymphatic: no anterior cervical choco Results Pertinent Lab Results: Laboratory Tests 04/10 04/10 04/10 1500 1442 UNK Chemistry Sodium Cancelled Potassium Cancelled Chloride Cancelled Carbon Dioxide Cancelled Anion Gap Cancelled BUN Cancelled Creatinine Cancelled BUN/Creatinine Ratio Cancelled Phosphorus Cancelled Albumin Cancelled Hematology CBC w Diff NO MAN DIFF REQ WBC (4.8 - 10.8 /CUMM) 8.3 RBC (4.70 - 6.10 /CUMM) 2.18 L Hgb (14.0 - 18.0 G/DL) 6.4 *L Hct (42 - 52 %) 19.0 *L MCV (80.0 - 94.0 FL) 87.3 MCH (27.0 - 31.0 PG) 29.5 RDW (11.5 - 14.5 %) 18.5 H Plt Count (130 - 400 /CUMM) 251 MPV (7.4 - 10.4 FL) 7.0 L Gran % (42.2 - 75.2 %) 66.2 Lymphocytes % (20.5 - 51.1 %) 20.5 Monocytes % (1.7 - 9.3 %) 9.4 H Eosinophils % (0 - 5 %) 3.1 Basophils % (0.0 - 2.0 %) 0.8 Absolute Granulocytes (1.4 - 6.5 /CUMM) 5.5 Absolute Lymphocytes (1.2 - 3.4 /CUMM) 1.7 Absolute Monocytes (0.10 - 0.60 /CUMM) 0.8 H Absolute Eosinophils (0.0 - 0.7 /CUMM) 0.3 Absolute Basophils (0.0 - 0.2 /CUMM) 0.1 PUBS MCHC (33.0 - 37.0 G/DL) 33.8 04/10 04/10 04/10 0913 0700 0652 Chemistry Sodium (137 - 145 mmol/L) 135 L Potassium (3.5 - 5.1 mmol/L) 4.6 Chloride (98 - 107 mmol/L) 98 Carbon Dioxide (22 - 30 mmol/L) 22 Anion Gap (5 - 16) 15 BUN (9 - 20 mg/dL) 124 *H Creatinine (0.7 - 1.2 mg/dL) 6.8 *H Estimated GFR (>60 ml/min) 8 L BUN/Creatinine Ratio (7 - 25 %) 18.2 Troponin I (<0.11 ng/ml) Cancelled 0.02 Hematology CBC w Diff NO MAN DIFF REQ WBC (4.8 - 10.8 /CUMM) 7.1 RBC (4.70 - 6.10 /CUMM) 2.10 L Hgb (14.0 - 18.0 G/DL) 6.3 *L Hct (42 - 52 %) 18.1 *L MCV (80.0 - 94.0 FL) 86.7 MCH (27.0 - 31.0 PG) 29.9 RDW (11.5 - 14.5 %) 20.1 H Plt Count (130 - 400 /CUMM) 282 MPV (7.4 - 10.4 FL) 7.1 L Gran % (42.2 - 75.2 %) 66.5 Lymphocytes % (20.5 - 51.1 %) 20.9 Monocytes % (1.7 - 9.3 %) 7.6 Eosinophils % (0 - 5 %) 4.2 Basophils % (0.0 - 2.0 %) 0.8 Absolute Granulocytes (1.4 - 6.5 /CUMM) 4.7 Absolute Lymphocytes (1.2 - 3.4 /CUMM) 1.5 Absolute Monocytes (0.10 - 0.60 /CUMM) 0.5 Absolute Eosinophils (0.0 - 0.7 /CUMM) 0.3 Absolute Basophils (0.0 - 0.2 /CUMM) 0.1 PUBS MCHC (33.0 - 37.0 G/DL) 34.5 04/105 2025 1946 Chemistry Sodium (137 - 145 mmol/L) 135 L Potassium (3.5 - 5.1 mmol/L) 4.5 Chloride (98 - 107 mmol/L) 98 Carbon Dioxide (22 - 30 mmol/L) 24 Anion Gap (5 - 16) 13 BUN (9 - 20 mg/dL) 94 H Creatinine (0.7 - 1.2 mg/dL) 5.8 *H Estimated GFR (>60 ml/min) 10 L BUN/Creatinine Ratio (7 - 25 %) 16.2 Glucose (65 - 99 mg/dL) 91 Calcium (8.4 - 10.2 mg/dL) 8.1 L Total Bilirubin (0.2 - 1.3 mg/dL) 0.5 AST (17 - 59 U/L) 23 ALT (21 - 72 U/L) 27 Alkaline Phosphatase (< 127 U/L) 182 H Troponin I (<0.11 ng/ml) 0.03 0.03 Total Protein (6.3 - 8.2 g/dL) 5.2 L Albumin (3.5 - 5.0 g/dL) 2.8 L Globulin (1.9 - 4.2 gm/dL) 2.4 Albumin/Globulin Ratio (1.1 - 2.2 %) 1.2 Hematology CBC w Diff NO MAN DIFF REQ WBC (4.8 - 10.8 /CUMM) 8.7 RBC (4.70 - 6.10 /CUMM) 1.75 L Hgb (14.0 - 18.0 G/DL) 5.5 *L Hct (42 - 52 %) 16.1 *L MCV (80.0 - 94.0 FL) 91.8 MCH (27.0 - 31.0 PG) 31.2 H RDW (11.5 - 14.5 %) 20.0 H Plt Count (130 - 400 /CUMM) 315 MPV (7.4 - 10.4 FL) 7.7 Gran % (42.2 - 75.2 %) 68.0 Lymphocytes % (20.5 - 51.1 %) 19.1 L Monocytes % (1.7 - 9.3 %) 8.1 Eosinophils % (0 - 5 %) 4.4 Basophils % (0.0 - 2.0 %) 0.4 Absolute Granulocytes (1.4 - 6.5 /CUMM) 5.9 Absolute Lymphocytes (1.2 - 3.4 /CUMM) 1.7 Absolute Monocytes (0.10 - 0.60 /CUMM) 0.7 H Absolute Eosinophils (0.0 - 0.7 /CUMM) 0.4 Absolute Basophils (0.0 - 0.2 /CUMM) 0 PUBS MCHC (33.0 - 37.0 G/DL) 34.0 Assessment/Plan Assessment/Recommendations: ASSESSMENT: 1. Shortness of Breath: Likely multifactorial due to COPD, question congestive heart failure, question pneumonia or aspiration 2. Acute on chronic anemia. Patient has a Hemoccult positive stool reports recent endoscopic workup. There are no gross signs of active GI blood loss. Patient is hemodynamically stable. In the absence of overt GI blood loss, recent cardiac cath and significant drop in H/H with failure to increase hgb after 3 units PRBC should consider hematoma either intra-abdominal or groin. Patient had reported at home per-umbilical bruising. 3. Coronary artery disease status post recent stent placement. I have discussed with the medical house staff that cardiology should be involved. It is highly unusual that patient has had stent placement as recently as 2 weeks ago and is not on an any thrombotic agent. Patient is a poor historian and was noncompliant with hemodialysis. I would suspect that he was not discharged from [facility] on aspirin alone. 4. Bipolar disorder 5. COPD 6. History of acute systolic congestive heart failure 7. End-stage renal disease on hemodialysis RECOMMENDATIONS: 1. Transfuse to hemoglobin above 7.0 2. Monitor for signs of overt, clinically and hemodynamically significant GI blood loss 3. Obtain old records from [facility] regarding recommendations concerning any thrombotic agents as well as details concerning GI workup that was done there. 4. At this time given patient's shortness of breath and recent cardiac events as well as a report that he has had a complete endoscopic workup, I would hesitate to do either EGD or colonoscopy especially as patient is stable and not actively bleeding. We will wait further recommendations pending review of records from [facility] as well as cardiology input. However if patient has active GI bleeding will intervene as needed. 5. Would start Protonix 40 mg IV daily 6. CT Scan Abdomen and Pelvis with IV contrast to rule out intra-abdominal hematoma -- timing to be coordinated with nephrology / HD Consult Acknowledgment - Thank you for your consult request.
[2017-04-10 15:51] LABS: ABSOLUTE BASOPHIL COUNT 0.1 /CUMM (0.0-0.2); ABSOLUTE EOSINOPHIL COUNT 0.2 /CUMM (0.0-0.7); ABSOLUTE LYMPH COUNT 1.5 /CUMM (1.2-3.4); ABSOLUTE MONOCYTE COUNT 0.7 /CUMM (0.10-0.60); EOSINOPHIL % 3.2 % (0-5); GRANULOCYTE % 66.6 % (42.2-75.2); MEAN CORPUSCULAR HGB 28.9 PG (27.0-31.0); MEAN CORPUSCULAR HGB CONC 33.2 G/DL (33.0-37.0); MEAN PLATELET VOLUME 7.4 FL (7.4-10.4); PLATELET COUNT 254 /CUMM (130-400); RBC DISTRIBUTION WIDTH 18.1 % (11.5-14.5); RED BLOOD CELL CT 2.04 /CUMM (4.70-6.10); WHITE BLOOD CELL COUNT 7.5 /CUMM (4.8-10.8)
[2017-04-10 16:06] LABS: HEMATOCRIT 17.8 % (42-52)
--- NOTE | 2017-04-10 16:08 | Cons- Nephrology ---
General Information and HPI Consulting Request Date of Consult: 04/10/17 Requested By: Ashok Durand MD Reason for Consult: Management of ESRD Source of Information: patient, old records Exam Limitations: no limitations History of Present Illness: The patient is a 61-year-old man well known to our service with dialysis- dependent end-stage renal disease who is normally dialyzed at [facility] Renal care in [facility]. He has had multiple admissions here recently for shortness of breath and/or chest pain and/or psychiatric issues. He now comes in after having missed his Sunday outpatient dialysis and after having a shortened "makeup" treatment yesterday complaining of shortness of breath. He was found to be severely anemic with a hemoglobin of 5.5. He was transfused with 3 units of packed RBCs. He denies any overt bleeding such as bright red blood per rectum, melena or hematemesis. There has been no hypotension although he did have tachycardia earlier today (110) which has resolved. It should be noted however that he did vomit just a short time ago discolored material that was positive for occult blood, and his most recent hemoglobin does not show any significant increase despite the multiple transfusions. He does have a history of peptic ulcer disease. There has been no fever or chills, and no recent change in his medications. 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 No apparent history of drug abuse. Allergies/Medications Allergies: Coded Allergies: chlorpromazine (From THORAZINE) (Severe, ANAPHYLAXIS 02/19/17) trifluoperazine (From STELAZINE) (Severe, ANAPHYLAXIS 10/03/15) lithium (PER PT "KILLED MY KIDNEYS" 01/24/17) venom-honey bee (BEE VENOM (HONEY BEE)) (UNKNOWN 10/03/15) Home Med List: Albuterol Sulfate (Ventolin Hfa) 90 MCG HFA.AER.AD 1 INHAL INH Q4P PRN asthma Aripiprazole (Abilify Maintena) 400 MG SUSER.VIAL 400 MG IM Q30D ANXIETY ( Reported) Aspirin (Ecotrin*) 81 MG TABLET.DR 1 TAB PO 0800 cardiac prohylaxis Atorvastatin Calcium 40 MG TABLET 1 CAP PO 1700 HYPERCHOLESTEROLEMIA Benztropine Mesylate 0.5 MG TABLET 1 TAB PO BID EPSE (Reported) Cinacalcet HCl (Sensipar) 30 MG TABLET 1 TAB PO DAILY dialysis Epoetin Florentino (Procrit) 3,000 UNIT/ML VIAL 3,000 UNIT IV TuThSa anemia Furosemide (Lasix) 40 MG TABLET 2 TAB PO 0800,2200 DIURETIC Gabapentin 300 MG CAPSULE 1 TAB PO AT BEDTIME insomnia Hydralazine HCl 10 MG TABLET 2 TAB PO BID htn Labetalol HCl 100 MG TABLET 1 TAB PO BID htn Lamotrigine (Lamictal) 150 MG TABLET 1 TAB PO DAILY THYMOLEPTIC Nephro-Vitamins (Nephro-Tara Tablet) 0.8 MG TABLET 1 TAB PO 1000 supplement Nitroglycerin (Nitroglycerin Patch) 0.4 MG/HOUR PATCH.TD24 1 PAT TOP DAILY NEEDED PRN CHEST PAIN Oxcarbazepine (Trileptal) 150 MG TABLET 4 TAB PO BID mood stabilizer Propranolol HCl 10 MG TABLET 1 TAB PO BID htn Quetiapine Fumarate 100 MG TABLET 4 TAB PO AT BEDTIME mood stabilizer Sevelamer Carbonate (Renvela) 800 MG TABLET 3 TAB PO TIDAC DIALYSIS Sevelamer Carbonate (Renvela) 800 MG TABLET 2 TAB PO Q4P PRN dialysis Tiotropium Helm (Spiriva) 18 MCG CAP.W.DEV 1 INHAL INH DAILY copd Review of Systems Review of Systems Constitutional: Reports: malaise, weakness. EENTM: Reports: no symptoms. Cardiovascular: Reports: no symptoms. Respiratory: Reports: see HPI. GI: Reports: see HPI. Genitourinary: Reports: no symptoms. Musculoskeletal: Reports: no symptoms. Skin: Reports: no symptoms. 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 Surgical History Surgical History: Lt. AV fistula Family History Relations & Conditions If Any: FATHER (hypertension). ; Cause: Renal cell cancer. BROTHER (GB stone, bipolar disorder, premature coronary artery disease). Psychosocial History Services at Home: None Primary Language: Tamazight Smoking Status: Former Smoker ETOH Use: denies use Illicit Drug Use: denies illicit drug use Functional Ability ADLs Independent: dressing, eating, toileting, bathing. Ambulation: independent Exam & Diagnostic Data Vital Signs and I&O Vital Signs Date Time Temp Pulse Resp B/P B/P Pulse O2 O2 Flow FiO2 Mean Ox Delivery Rate 04/10 1357 100 Room Air 04/10 1320 97.9 82 2 130/72 100 Room Air 04/10 1240 99 20 134/78 04/10 1034 98.2 96 18 154/86 04/10 1034 98.2 96 18 154/86 04/10 1034 98.2 96 18 154/86 04/10 1033 98.2 96 18 154/86 98 Room Air 04/10 0923 97.7 98 18 139/79 98 Room Air 04/10 0824 98.6 94 18 143/80 98 Room Air 04/10 0500 98.3 108 20 145/94 99 Room Air 04/10 0414 98.1 04/10 0355 98.1 110 20 167/89 100 Room Air 04/10 0239 99.2 04/09 2311 99.2 100 20 170/98 97 Room Air 04/09 2150 Room Air 04/09 1835 98.1 105 22 165/92 96 Room Air Intake & Output 04/10 1600 04/10 0400 04/09 1600 04/09 0400 04/08 1600 04/08 0400 Intake Total 150 350 Output Total 0 Balance 150 350 Intake, Blood 100 350 Product Intake, Oral 50 Number 0 Bowel Movements Output, Urine 0 Patient 213 lb 210 lb Weight Weight Standing Scale Measurement Method Physical Exam: General: Well-developed white male in no acute distress Skin: No rash or jaundice HEENT: Conjunctivae pale, sclerae anicteric, mucous membranes moist Neck: Without masses or thyromegaly, no supraclavicular or cervical adenopathy Chest: Diminished breath sounds at bases, no rales or rhonchi Heart: Regular rate and rhythm without S3 or rub Abdomen: Obese, soft and nontender without palpable masses or organomegaly Extremities: Without cyanosis or edema, left lower arm AVF patent Neuro: No focal findings, no asterixis or myoclonus Assessment/Plan Assessment/Recommendations Assessment: 61-year-old man with a history of bipolar disorder and dialysis-dependent end- stage renal disease secondary to lithium toxicity, now being admitted with shortness of breath and found to have severe anemia which has not improved despite multiple packed RBC transfusions. There is a history of peptic ulcer disease and testing of vomitus earlier today was positive for occult blood. There has been no other clinical evidence for active GI blood loss. Finally, he is chronically poorly compliant with his dialysis schedule and is likely somewhat under dialyzed. He is not, however, significantly volume overloaded by exam or by his current measured weight. Recommendations: 1. Hemodialysis today in progress with 2-3 L ultrafiltration of 4 hours as tolerated; no heparin will be used 2. Consider transfuse another 1-2 units of packed RBCs with dialysis today 3. Close monitoring of H/H and clinical status 4. GI consult 5. We will continue him on a Sunday schedule while in the hospital 6. Continue outpatient medications as feasible 7. Nothing by mouth for now; once diet is resumed suggest 2 g sodium, 2 g potassium, 80 g protein, 1200 mL fluid limit per day 8. I have taken the liberty of ordering his Epogen to be given with each hemodialysis Thank you. Will follow along with you.
--- NOTE | 2017-04-10 16:45 | Cons- Psychiatry ---
Psychiatric Consult Date of Consult: 04/10/17 Reason for Consult: Bipolar disorder. Dr. Durand attending History of Present Illness: Identifying Info: 61-year-old single conserved male well known to this service presents to [place] emergency department on 04/09/2017 which complaint of shortness of breath. Seen today on telemetry. CC: "I'm not going manic." HPI: Patient has a long history of bipolar disorder with multiple psychiatric admissions most recently on [facility] approximately one month ago for jazmin for the second time in the past 3 months. The plan at discharge for both admissions was for him to follow-up with [facility] dual diagnosis IOP, continue with visiting nursing and eventual discharge back to [facility] outpatient. Patient did not attend intake appointment or respond to calls after both discharges. Of note the patient was hospitalized at [facility] for approximately 1 year discharged in September 2016. He has a history of violent behavior when manic in the past. Since discharge from [facility] 4 weeks ago the patient has had 4 emergency room visits for SOB including 2 on his day of discharge. Additionally he has a reported cardiac arrest at [facility] approximately 2 weeks ago. On most recent admission the patient was reported by outside collateral to have been suspected of continued polysubstance abuse however 3 Utox in the past month have all been negative. PMH: Please see the H&P for a complete listing hypertension, dyslipidemia, ESRD due to lithium, PUD, ?h/o of Sz Past Psych History: -Outpatient Care -Inpatient [facility] several stays, [facility] Substance History Alcohol use disorder Cannabis use disorder -Treatment Denies Family Psych & Substance History: Bipolar disease on Mother's side of family. Brother ETOH. Social: Has conservator of person, collections attorneyeleazar Villegas ([phone] cell: [phone]) , and conservator of estate, father Chan Sanches ([phone]). Single. Currently resides in apartment with his brother. Unemployed. Several previous arrests. 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 Current Home Psychotropic Medications: Lamictal 150 mg every morning Quetiapine 400 mg daily at bedtime Propranolol 10 mg twice a day Trileptal 600 mg twice a day Abilify Maintena 400mg once monthly IM (reports last received a few days ago, unconfirmed) Current Hospital Psychotropic Medications: Med Aripiprazole 10 MG PO DAILY 04/10/17 1000 Benztropine Mesylate 0.5 MG PO BID 04/10/17 1000 Gabapentin 300 MG PO AT BEDTIME 04/10/17 0215 Lamotrigine 150 MG PO DAILY 04/10/17 1000 Oxcarbazepine 600 MG PO BID 04/10/17 1000 Propranolol HCl 10 MG PO BID 04/10/17 1000 Quetiapine Fumarate 400 MG PO AT BEDTIME 04/10/17 0215 Allergies: Coded Allergies: chlorpromazine (From THORAZINE) (Severe, ANAPHYLAXIS 02/19/17) trifluoperazine (From STELAZINE) (Severe, ANAPHYLAXIS 10/03/15) lithium (PER PT "KILLED MY KIDNEYS" 01/24/17) venom-honey bee (BEE VENOM (HONEY BEE)) (UNKNOWN 10/03/15) Current Medications: Current Medications Sig/Grace Start time Last Medication Dose Route Stop Time Status Admin Acetaminophen 0 .STK-MED ONE 04/10 0233 DC PO Acetaminophen 325 MG Q6-PRN PRN 04/09 2245 AC 04/10 PO 0239 Albuterol Sulfate 2 PUF Q4P PRN 04/09 2300 AC INH Aripiprazole 10 MG DAILY 04/10 1000 AC 04/10 PO 1034 Aspirin 325 MG ONCE ONE 04/09 2015 DC 04/09 PO 04/09 Aspirin Buffered 81 MG 0800 04/10 0800 AC 04/10 PO 0824 Atorvastatin Calcium 40 MG 1700 04/10 1700 AC PO Benztropine Mesylate 0.5 MG BID 04/10 1000 AC 04/10 PO 1034 Cinacalcet 30 MG DAILY 04/10 1000 AC 04/10 PO 1034 Epoetin Florentino 8,000 UNIT TUES THURS SAT PRN 04/10 1500 AC IV Furosemide 80 MG 0800,2200 04/10 0800 AC 04/10 PO 0824 Gabapentin 300 MG AT BEDTIME 04/10 2200 DC PO Gabapentin 300 MG AT BEDTIME 04/10 0215 AC 04/10 PO 0239 Hydralazine HCl 20 MG BID 04/10 1000 AC 04/10 PO 1034 Labetalol HCl 100 MG BID 04/10 1000 AC 04/10 PO 1034 Lamotrigine 150 MG DAILY 12/12 1000 AC 12 PO 1034 Multivitamins 1 TAB 1000 04/10 1000 AC 12 PO 1034 Oxcarbazepine 600 MG BID 04/10 1000 AC 04/10 PO 1034 Pantoprazole Sodium 40 MG DAILY 04/10 1000 AC 04/10 IV 1034 Propranolol HCl 10 MG BID 04/10 1000 AC 04/10 PO 1034 Quetiapine Fumarate 400 MG AT BEDTIME 04/10 2200 DC PO Quetiapine Fumarate 400 MG AT BEDTIME 04/10 0215 AC 04/10 PO 0239 Ramelteon 8 MG AT BEDTIME 04/10 2200 CAN PO Sevelamer Carbonate 2,400 MG TIDAC 04/10 0800 AC 04/10 PO 0824 Sevelamer Carbonate 1,600 MG Q4P PRN 04/09 2300 CAN PO Tiotropium [place] 1 PUF DAILY 04/10 1000 AC 04/10 INH 1034 Past History Past Medical History Neurological: SEIZURE ONCE 20 YRS AGO EENT: NONE Cardiovascular: hypertension, hyperlipidemia Respiratory: asthma, COPD Gastrointestinal: NONE Hepatic: NONE Renal: ESRD on HD, renal masses --> onchocytyomas Musculoskeletal: NONE Psychiatric: anxiety, bipolar disease (WITH PSYCHOTIC FEATURES), depression Endocrine: hypopituitarism, HYPERPARATHROIDISM Blood Disorders: NONE Cancer(s): bilateral renal masses which were biopsied improved to be an oncocytoma 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 AV fistula Psychosocial History Strengths/Capabilities: He is on Disability and has stable housing Physical Limitations (Interventions): Chronic medical issues with noncompliance Psychiatric Treatment History Psych Treatment Psychiatric Treatment Yes Diagnosis: Bipolar-manic ETOH Cannabis Risk Factors: chronic/serious med cond., high anxiety/distress, history of Violence, SA/MH hospitalized, substance abuse, lives alone, male Substance Use/Abuse History Drug Use/Abuse Substances Used/Abused Yes Substance Abuse Treatment Substance Abuse Treatment Past Substance Abuse [place] Yes Assessment/Plan Mental Status Mental Status Exam: Presentation/Appearance: Cooperative with evaluation. [facility] garb. Orientation: x3 Sensorium: Awake and alert Eye contact: Appropriate Affect: Somewhat blunted Mood: "Fine" Depression: Denies Anxiety: Denies Thought Content: - Denies SI/HI, AH/VH, PI. States and also believes they will not kill themselves. - Denies Hopeless/Helpless Thoughts Thought Process: Linear Associations: Appropriate Speech: Normal tone and rate Judgment: Poor Insight: Poor Cognition: Memory: Grossly intact Attention/Concentration: Grossly intact Fund of Knowledge: Adequate Abstractions: Not assessed MMSE: Not completed Brief ROS Gait: Steady Sleep: [place] Appetite: Adequate Energy: Low IADLs/ADLs: Independent Lab Results: Laboratory Tests 04/10/17 1610: LD Total Cancelled, LD 1 Cancelled, LD 2 Cancelled, LD 3 Cancelled, LD 4 Cancelled, LD 5 Cancelled, LD 1:LD 2 Ratio Cancelled 04/10/17 1515: Haptoglobin Pending 04/10/17 1515: Anion Gap 12, Estimated GFR 8 L, BUN/Creatinine Ratio 19.1, Calcium 7.5 L, Phosphorus 3.1, Magnesium 1.7, Ferritin Pending, Lactate Dehydrogenase Pending, Albumin 2.9 L, CBC w Diff NO MAN DIFF REQ, RBC 2.04 L, MCV 87.0, MCH 28.9, RDW 18.1 H, MPV 7.4, Gran % 66.6, Lymphocytes % 20.4 L, Monocytes % 8.8, Eosinophils % 3.2, Basophils % 1.0, Absolute Granulocytes 5.0, Absolute Lymphocytes 1.5, Absolute Monocytes 0.7 H, Absolute Eosinophils 0.2, Absolute Basophils 0.1, PUBS MCHC 33.2 04/10/17 1500: Sodium Cancelled, Potassium Cancelled, Chloride Cancelled, Carbon Dioxide Cancelled, Anion Gap Cancelled, BUN Cancelled, Creatinine Cancelled, BUN/ Creatinine Ratio Cancelled, Phosphorus Cancelled 04/10/17 1442: CBC w Diff NO MAN DIFF REQ, RBC 2.18 L, MCV 87.3, MCH 29.5, RDW 18.5 H, MPV 7.0 L, Gran % 66.2, Lymphocytes % 20.5, Monocytes % 9.4 H, Eosinophils % 3.1, Basophils % 0.8, Absolute Granulocytes 5.5, Absolute Lymphocytes 1.7, Absolute Monocytes 0.8 H, Absolute Eosinophils 0.3, Absolute Basophils 0.1, PUBS MCHC 33.8 04/10/17 1000: Albumin Cancelled 04/10/17 0913: CBC w Diff NO MAN DIFF REQ, RBC 2.10 L, MCV 86.7, MCH 29.9, RDW 20.1 H, MPV 7.1 L, Gran % 66.5, Lymphocytes % 20.9, Monocytes % 7.6, Eosinophils % 4.2, Basophils % 0.8, Absolute Granulocytes 4.7, Absolute Lymphocytes 1.5, Absolute Monocytes 0.5, Absolute Eosinophils 0.3, Absolute Basophils 0.1, PUBS MCHC 34.5 04/10/17 0700: Troponin I Cancelled 04/10/17 0652: Anion Gap 15, Estimated GFR 8 L, BUN/Creatinine Ratio 18.2, Troponin I 0.02 04/10/17 0145: Troponin I 0.03 04/09/172025: CBC w Diff NO MAN DIFF REQ, RBC 1.75 L, MCV 91.8, MCH 31.2 H, RDW 20.0 H, MPV 7.7, Gran % 68.0, Lymphocytes % 19.1 L, Monocytes % 8.1, Eosinophils % 4.4, Basophils % 0.4, Absolute Granulocytes 5.9, Absolute Lymphocytes 1.7, Absolute Monocytes 0.7 H, Absolute Eosinophils 0.4, Absolute Basophils 0, PUBS MCHC 34.0 04/09/171946: Anion Gap 13, Estimated GFR 10 L, BUN/Creatinine Ratio 16.2, Glucose 91, Calcium 8.1 L, Total Bilirubin 0.5, AST 23, ALT 27, Alkaline Phosphatase 182 H , Troponin I 0.03, Total Protein 5.2 L, Albumin 2.8 L, Globulin 2.4, Albumin/ Globulin Ratio 1.2 Diffential Diagnosis: Bipolar I disorder, severe, most recent episode manic by history Alcohol use disorder by history Cannabis use disorder Impression: 61-year-old conserved single male with history of severe bipolar disorder requiring multiple long-term hospitalizations currently presents as psychiatrically asymptomatic. While in hospital it would be prudent to continue psychotropics as taken at home as medically able. While recent detoxes have been negative collateral reports have been concerning and he should be monitored for ETOH withdrawal symptoms. Provisional Treatment Plan: - Please discontinue Abilify as patient recently received his ISABEL shot and does not typically take this medication by mouth. - Continue other psychotropics as currently ordered. - Please start CIWA monitoring and appropriate vitamin supplementation. Utox. Plan to initiate benzodiazepines for withdrawal if required. - Calls for collateral made to [facility] ([phone]) and visiting nurse Ochoa Nicolas ([phone]). - Please order social work consult due to patient being followed by [facility]. Appreciate assistance with disposition planning. Thank you for including psychiatry in this case we'll continue to follow. A total of 60 minutes was spent with the patient with more than 50% of the time spent in counseling and/or coordination of care
--- NOTE | 2017-04-10 17:52 | Event Note ---
Event Note Event Note: Patient has low hemoglobin that did not improve after 3 packed RBCs transfusion. GI recommended CT abdomen and pelvis with IV contrast looking for hematoma. I spoke with technical project lead who agrees with using IV contrast on the patient even though his next dialysis session will be the day after tomorrow. Given that we are looking for intra-abdominal bleeding/hematoma, I spoke with Mukesh radiologist who recommended starting with CT abdomen and pelvis without IV contrast and if there is any suspicion of intra-abdominal bleeding we will proceed with CTA abdomen and pelvis to look for possible source.
--- NOTE | 2017-04-10 18:20 | Cons- Cardiology ---
General Information and HPI Consulting Request Date of Consult: 04/10/17 Requested By: Ashok Durand MD History of Present Illness: Mr. Sanches is a 61 year old male with history hypertension, dyslipidemia, tobacco abuse and a family history of premature coronary artery disease. He also carries a history of ESRD on hemodialysis. The patient was recently admitted to after a visiting nurse found his blood pressure to be severely elevated. In this setting the patient noted a moderate, non-radiating sharp chest discomfort. The discomfort was noted at 6AM upon awakening from sleep. It was associated with mild shortness of breath and palpitations. The patient received aspirin and NTG with resolution of his symptoms. In consideration of a decreased EF on echo and the above this patient underwent a cardiac catheterization which showed patent coronaries except for mild luminal irregularities in the LAD. His echo showed a mildly decreased EF of 45-50% with mild left ventricular hypertrophy and mild MR. He reportedly presented to on 03/27 in respiratory distress with elevated potassium and had transient VT. He had a repeat cardiac catheterization at [facility] at that time. He now presents with shortness of breath and severe anemia. At baseline, this patient is moderately active and feels well without chest discomfort, shortness of breath, lightheadedness or palpitations. Higher levels of activity will elicit shortness of breath. Allergies/Medications Allergies: Coded Allergies: chlorpromazine (From THORAZINE) (Severe, ANAPHYLAXIS 02/19/17) trifluoperazine (From STELAZINE) (Severe, ANAPHYLAXIS 10/03/15) lithium (PER PT "KILLED MY KIDNEYS" 01/24/17) venom-honey bee (BEE VENOM (HONEY BEE)) (UNKNOWN 10/03/15) Home Med List: Albuterol Sulfate (Ventolin Hfa) 90 MCG HFA.AER.AD 1 INHAL INH Q4P PRN asthma Aripiprazole (Abilify Maintena) 400 MG SUSER.VIAL 400 MG IM Q30D ANXIETY ( Reported) Aspirin (Ecotrin*) 81 MG TABLET.DR 1 TAB PO 0800 cardiac prohylaxis Atorvastatin Calcium 40 MG TABLET 1 CAP PO 1700 HYPERCHOLESTEROLEMIA Benztropine Mesylate 0.5 MG TABLET 1 TAB PO BID EPSE (Reported) Cinacalcet HCl (Sensipar) 30 MG TABLET 1 TAB PO DAILY dialysis Epoetin Florentino (Procrit) 3,000 UNIT/ML VIAL 3,000 UNIT IV TuThSa anemia Furosemide (Lasix) 40 MG TABLET 2 TAB PO 0800,2200 DIURETIC Gabapentin 300 MG CAPSULE 1 TAB PO AT BEDTIME insomnia Hydralazine HCl 10 MG TABLET 2 TAB PO BID htn Labetalol HCl 100 MG TABLET 1 TAB PO BID htn Lamotrigine (Lamictal) 150 MG TABLET 1 TAB PO DAILY THYMOLEPTIC Nephro-Vitamins (Nephro-Tara Tablet) 0.8 MG TABLET 1 TAB PO 1000 supplement Nitroglycerin (Nitroglycerin Patch) 0.4 MG/HOUR PATCH.TD24 1 PAT TOP DAILY NEEDED PRN CHEST PAIN Oxcarbazepine (Trileptal) 150 MG TABLET 4 TAB PO BID mood stabilizer Propranolol HCl 10 MG TABLET 1 TAB PO BID htn Quetiapine Fumarate 100 MG TABLET 4 TAB PO AT BEDTIME mood stabilizer Sevelamer Carbonate (Renvela) 800 MG TABLET 3 TAB PO TIDAC DIALYSIS Sevelamer Carbonate (Renvela) 800 MG TABLET 2 TAB PO Q4P PRN dialysis Tiotropium [place] (Spiriva) 18 MCG CAP.W.DEV 1 INHAL INH DAILY copd Review of Systems Review of Systems: A review of systems is unobtainable. 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 Surgical History Surgical History: Lt. AV fistula Family History Relations & Conditions If Any: FATHER (hypertension). ; Cause: Renal cell cancer. BROTHER (GB stone, bipolar disorder, premature coronary artery disease). Psychosocial History Services at Home: None Primary Language: St Helen[place] Smoking Status: Former Smoker ETOH Use: denies use Illicit Drug Use: denies illicit drug use Functional Ability ADLs Independent: dressing, eating, toileting, bathing. Ambulation: independent Exam & Diagnostic Data Vital Signs and I&O Vital Signs Date Time Temp Pulse Resp B/P B/P Pulse O2 O2 Flow FiO2 Mean Ox Delivery Rate 04/10 1357 100 Room Air 04/10 1320 97.9 82 2 130/72 100 Room Air 04/10 1240 99 20 134/78 04/10 1034 98.2 96 18 154/86 04/10 1034 98.2 96 18 154/86 04/10 1034 98.2 96 18 154/86 04/10 1033 98.2 96 18 154/86 98 Room Air 04/10 0923 97.7 98 18 139/79 98 Room Air 04/10 0824 98.6 94 18 143/80 98 Room Air 04/10 0500 98.3 108 20 145/94 99 Room Air 04/10 0414 98.1 04/10 0355 98.1 110 20 167/89 100 Room Air 04/10 0239 99.2 04/09 2311 99.2 100 20 170/98 97 Room Air 04/09 2150 Room Air 04/09 1835 98.1 105 22 165/92 96 Room Air Intake & Output 04/10 1600 04/10 0800 04/10 0000 04/09 1600 04/09 0800 04/09 0000 Intake Total 150 350 Output Total 0 Balance 150 350 Intake, Blood 100 350 Product Intake, Oral 50 Number 0 Bowel Movements Output, Urine 0 Patient 213 lb 210 lb Weight Weight Standing Scale Measurement Method Physical Exam: General: WD/WN male in NAD; awake and slow to respond HEENT: NC/AT, PERRL, EOMI Neck: no JVD, no carotid bruit Heart: RRR with 2/6 systolic murmur Lungs: clear bilaterally ABdomen: soft, NT, +ve bowel sounds Extremities: no edema, left arm fistula Assessment/Plan Assessment/Plan * This patient was recently seen in the office on April 06 and was doing well. His current shortness of breath is due to anemia and if there is fluid overload dialysis will likely address that issue. His tachycardia that was noted upon admission I would attribute to his anemia. There is mention of a stent placed to the patient's LAD at [place]. I would obtain records to confirm this since the patient did not appear to be on a platelet inhibitor other than aspirin. * Agree with an abdominal CT to assess for a collection of blood that would explain his severe anemia. Consult Acknowledgment - Thank you for your consult request.
[2017-04-10 19:29] LABS: ABSOLUTE BASOPHIL COUNT 0 /CUMM (0.0-0.2); ABSOLUTE EOSINOPHIL COUNT 0.2 /CUMM (0.0-0.7); ABSOLUTE LYMPH COUNT 1.6 /CUMM (1.2-3.4); ABSOLUTE MONOCYTE COUNT 0.6 /CUMM (0.10-0.60); BASOPHIL % 0.3 % (0.0-2.0); EOSINOPHIL % 2.9 % (0-5); GRANULOCYTE % 66.5 % (42.2-75.2); MEAN CORPUSCULAR HGB CONC 33.8 G/DL (33.0-37.0); MEAN PLATELET VOLUME 7.2 FL (7.4-10.4); PLATELET COUNT 263 /CUMM (130-400); RBC DISTRIBUTION WIDTH 17.9 % (11.5-14.5); RED BLOOD CELL CT 2.53 /CUMM (4.70-6.10); WHITE BLOOD CELL COUNT 7.5 /CUMM (4.8-10.8)
[2017-04-10 19:36] LABS: HEMATOCRIT 21.7 % (42-52)
--- NOTE | 2017-04-10 19:44 | CT SCAN REPORT ---
EXAMINATION: CT ABDOMEN AND PELVIS WITHOUT CONTRAST CLINICAL INFORMATION: Evaluate for intra-abdominal bleeding/hematoma. Anemic. COMPARISON: CT from 09/16/2015. TECHNIQUE: Multidetector volumetric imaging was performed from the superior aspect of the liver through the pubic symphysis. Sagittal and coronal reformatted images were obtained on the technologist's workstation. DLP: 595 mGy-cm FINDINGS: LUNG BASES: There is a small right pleural effusion. Left basilar subsegmental atelectasis. There is a patchy opacity in the right middle lobe. The visualized cardiac structures are unremarkable. LIVER, GALLBLADDER, AND BILIARY TREE: The liver is normal in size, shape, and attenuation. No focal hepatic lesion or biliary ductal dilatation is present. The gallbladder is unremarkable with no evidence of radiopaque gallstones, gallbladder wall thickening, or obvious pericholecystic inflammatory changes. PANCREAS: Unremarkable. SPLEEN: Unremarkable. ADRENAL GLANDS: Unremarkable. KIDNEYS AND URETERS: The kidneys are atrophic. There is prominent bilateral perinephric stranding. This is increased from prior. No hydronephrosis or nephrolithiasis. There are multiple bilateral renal lesions. Many of these are somewhat hyperattenuating. The largest of these lesions appear increased in size. For instance, there is a left lower pole lesion measuring 4.9 cm, compared to 4 cm. There is no retroperitoneal hematoma. BLADDER: Unremarkable. GASTROINTESTINAL TRACT: The stomach and small bowel are unremarkable. No dilated loops of bowel or evidence of obstruction. Normal appendix. No colonic wall thickening or inflammatory change. Minimal diverticulosis without evidence of diverticulitis. No free air. No fluid collection. Mild presacral edema noted. ABDOMINAL WALL: No significant hernia is appreciated. LYMPH NODES: Normal. VASCULAR: Normal caliber aorta with mild atherosclerotic calcifications. PELVIC VISCERA: The prostate and seminal vesicles are unremarkable. OSSEOUS STRUCTURES: No acute or suspicious osseous abnormality. Mild degenerative changes in the spine. Sclerotic appearance of the osseous structures could be associated with renal osteodystrophy. IMPRESSION: No intra-abdominal or retroperitoneal hematoma. Atrophic kidneys with multiple bilateral renal lesions. Many of these measure slightly higher than simple fluid and could represent proteinaceous or hemorrhagic cysts. These do demonstrate mild increase in size compared to 09/16/2015. There is symmetric perinephric stranding noted without hematoma. Small right pleural effusion.
[2017-04-10 22:51] VITALS: BP 148/78
[2017-04-11 02:00] VITALS: BP 134/72
[2017-04-11 06:48] VITALS: BP 138/80
[2017-04-11 07:56] LABS: ABSOLUTE BASOPHIL COUNT 0 /CUMM (0.0-0.2); ABSOLUTE EOSINOPHIL COUNT 0.3 /CUMM (0.0-0.7); ABSOLUTE GRANULOCYTE CT 4.4 /CUMM (1.4-6.5); ABSOLUTE LYMPH COUNT 1.2 /CUMM (1.2-3.4); ABSOLUTE MONOCYTE COUNT 0.5 /CUMM (0.10-0.60); BASOPHIL % 0.8 % (0.0-2.0); EOSINOPHIL % 4.1 % (0-5); GRANULOCYTE % 68.3 % (42.2-75.2); MEAN CORPUSCULAR HGB 29.5 PG (27.0-31.0); MEAN CORPUSCULAR HGB CONC 33.7 G/DL (33.0-37.0); MEAN CORPUSCULAR VOLUME 87.4 FL (80.0-94.0); MEAN PLATELET VOLUME 7.5 FL (7.4-10.4); PLATELET COUNT 239 /CUMM (130-400); RBC DISTRIBUTION WIDTH 18.6 % (11.5-14.5); RED BLOOD CELL CT 2.13 /CUMM (4.70-6.10); WHITE BLOOD CELL COUNT 6.4 /CUMM (4.8-10.8)
[2017-04-11 08:00] VITALS: BP 138/80
--- NOTE | 2017-04-11 08:06 | PN- Housestaff ---
Subjective Follow-up For: Symptomatic anemia. Atypical chest pain End-stage renal disease on dialysis Tele-Events Since Last Visit: No overnight events. Patient remained in sinus rhythm with heart rate between 8086 Subjective: No overnight events patient remained afebrile overnight. Patient seen and examined this morning bedside. He was lying in bed comfortably. He reported to have exertional dyspnea but denied any chest pain, nausea, vomiting, blood in stool, blood in vomitus, abdominal pain and dysuria. Patient got the dialysis yesterday and his hemoglobin improved to 7.3 but this morning again it went down to 6.4. Review of Systems Constitutional: Reports: no symptoms. EENTM: Reports: no symptoms. Cardiovascular: Reports: no symptoms. Respiratory: Reports: short of breath. Gastrointestinal: Reports: no symptoms. Genitourinary: Reports: no symptoms. Musculoskeletal: Reports: no symptoms. Neurological/Psychological: Reports: no symptoms. Objective Last 24 Hrs of Vital Signs/I&O Vital Signs Date Time Temp Pulse Resp B/P B/P Pulse O2 O2 Flow FiO2 Mean Ox Delivery Rate 04/11 1031 88 1368/80 04/11 1029 88 138/80 04/11 1028 88 138/80 04/11 0648 98.1 86 20 138/80 94 Room Air 04/11 0200 97.5 84 20 134/72 04/11 0000 Room Air Room Air 04/10 2251 97.3 99 16 148/78 96 Room Air 04/10 2157 95 140/80 04/10 2157 95 140/80 04/10 2156 95 140/80 04/10 1357 100 Room Air 04/10 1320 97.9 82 2 130/72 100 Room Air 04/10 1240 99 20 134/78 Intake & Output 04/11 1600 04/11 0800 04/11 0000 Intake Total 250 300 Output Total Balance 250 300 Intake, Oral 250 300 Physical Exam General Appearance: Alert, Oriented X3, Cooperative Skin Temp/Moisture Exam: Warm/Dry HEENT: Atraumatic, PERRLA, EOMI Neck: Supple Cardiovascular: Normal S1, Normal S2 Lungs: Clear to Auscultation Abdomen: Soft, No Tenderness Neurological: Normal Speech, Strength at 5/5 X4 Ext, Normal Tone, Sensation Intact Extremities: No Edema Assessment/Plan Assessment: 61 yo M active smoker with pmhx of ESRD on dialysis, HFrEF (EF 45-50% on ) hypertension, hyperlipidemia, bipolar disorder, asthma, COPD, seizure history, depression, recently went 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 Symptomatic anemia: -Patient came in with an H&H 5.5/16.1 and having exertional dyspnea and atypical chest pain. -Plan to give the patient blood transfusion. He received 3 blood transfusion in ED -We will keep the hemoglobin more than 8 considering patient's significant cardiac history in the past. -We will check the CBCs for H&H after blood transfusion. -We will get the GI consultation to rule out any active bleeding in GI tract as patient having history of black stools. -We will monitor the patient's if he become unstable hemodynamically we will give patient blood transfusion or call GI. -IV Protonix -No NSAIDs -We'll follow the GI recommendations and we will try to get any records related to an endoscopy or colonoscopy in the past.(04/11/17) Atypical chest pain: -We will do serial EKGs and troponins to rule out any ischemic cardiac injury considering patient's significant past medical history of cardiac ischemia. -The got the records from [facility] yesterday. They mentioned that patient got the cardiac cath but during the cardiac cath he went to cardiogenic shock. They mentioned that vessels were clear.(04/11/17) -Angiography was done in February 2017 that showed normal coronary vessels. Left heart ejection fraction 40%. In record they also mention about takotsubo cardiomyopathy. patient also having wall motion abnormalities of anterolateral and apical.(04/11/17) -We will follow the cardiology recommendations. -Echocardiogram History of end-stage renal disease on dialysis: -We will get the nephrology consult -Patient having AV fistula on left arm -patient is getting dialysis on sunday, and sunday. -We will check the creatinine and BUN we will follow the BEP. -We will continue the Nephro-Tara, Savelamer, sensipar and procrit injection -Patient got the dialysis yesterday and his hemoglobin improved to 7.3 but this morning it's again 6.4. Patient will be kept low-sodium diet 2 g and 2 g potassium with water restriction to 1200ml.(04/11/17) History of bipolar disorder: We'll continue the benztropine, aripiprazole and seroquel. We will follow the psychiatry recommendations. History of CHF with systolic dysfunction, hyperlipidemia and hypertension: -To continue the Lasix and aspirin -We will continue propranolol labetalol and hydralazine for hypertension. -Continue Lipitor for hyperlipidemia History of seizures: -We will continue oxcarbazpine and lamotrigine DVT prophylaxis: Mechanical and subcutaneous heparin CODE STATUS: Full code Problem List: 1. Symptomatic anemia 2. Atypical chest pain 3. ESRD (end stage renal disease) on dialysis Pain Ratin Pain Location: none Pain Goal: Remain pain free Pain Plan: oxycodone for pain Tomorrow's Labs & Rationales: cbc/bep
[2017-04-11 08:45] LABS: HEMATOCRIT 18.7 % (42-52)
--- NOTE | 2017-04-11 10:12 | PN- Att Addend ---
Attending Addendum Attending Brief Note Patient looking and feeling better today. Appreciate GIs consult and input and recommendations. His vital signs are stable, no fever no major changes on physical continue monitoring H&H closely and transfuse if necessary to maintain hemoglobin above 7. Continue renal support, hemodialysis in a.m.. Intake & Output 04/11 1600 04/11 0400 04/10 1600 04/10 0400 04/09 1600 04/09 0400 Intake Total 250 300 150 350 Output Total 0 Balance 250 300 150 350 Intake, Blood 100 350 Product Intake, Oral 250 300 50 Number 0 Bowel Movements Output, Urine 0 Patient 213 lb 210 lb Weight Weight Standing Scale Measurement Method Current Medications Sig/Grace Start time Last Medication Dose Route Stop Time Status Admin Acetaminophen 325 MG Q6-PRN PRN 04/09 2245 AC 04/10 PO 0239 Albuterol Sulfate 2 PUF Q4P PRN 04/09 2300 AC INH Aripiprazole 10 MG DAILY 04/10 1000 DC 04/10 PO 1034 Aspirin Buffered 81 MG 0800 04/10 0800 AC 04/10 PO 0824 Atorvastatin Calcium 40 MG 1700 04/10 1700 AC 04/10 PO 2158 Benztropine Mesylate 0.5 MG BID 04/10 1000 AC 04/10 PO 2156 Cinacalcet 30 MG DAILY 04/10 1000 AC 04/10 PO 1034 Epoetin Florentino 8,000 UNIT TUES THURS SAT PRN 04/10 1500 AC IV Furosemide 80 MG 0800,2200 12/12 0800 AC 12 PO 2200 Gabapentin 300 MG AT BEDTIME 04/10 0215 AC 04/10 PO 2155 Hydralazine HCl 20 MG BID 04/10 1000 AC 04/10 PO 2157 Labetalol HCl 100 MG BID 04/10 1000 AC 12 PO 2156 Lamotrigine 150 MG DAILY 04/10 1000 AC 04/10 PO 1034 Lorazepam 0 Q1P PRN 04/11 0045 AC IV Melatonin 5 MG ONCE ONE 04/11 0500 DC PO 04/11 0501 Multivitamins 1 TAB 1000 04/10 1000 AC 12 PO 1034 Oxcarbazepine 600 MG BID 04/10 1000 AC 12 PO 2155 Pantoprazole Sodium 40 MG DAILY 04/10 1000 AC 04/11 IV 0903 Propranolol HCl 10 MG BID 04/10 1000 AC 04/10 PO 2157 Quetiapine Fumarate 400 MG AT BEDTIME 04/10 0215 AC 04/10 PO 2156 Sevelamer Carbonate 2,400 MG TIDAC 04/10 0800 AC 04/10 PO 2155 Tiotropium [place] 1 PUF DAILY 04/10 1000 AC 04/10 INH 1034 Laboratory Tests 04/11/17 0645: CBC w Diff NO MAN DIFF REQ, RBC 2.13 L, MCV 87.4, MCH 29.5, RDW 18.6 H, MPV 7.5, Gran % 68.3, Lymphocytes % 19.2 L, Monocytes % 7.6, Eosinophils % 4.1, Basophils % 0.8, Absolute Granulocytes 4.4, Absolute Lymphocytes 1.2, Absolute Monocytes 0.5, Absolute Eosinophils 0.3, Absolute Basophils 0, PUBS MCHC 33.7 04/11/17 0630: Anion Gap 10, Estimated GFR 13 L, BUN/Creatinine Ratio 12.4 04/10/17 1900: CBC w Diff NO MAN DIFF REQ, RBC 2.53 L, MCV 86.0, MCH 29.0, RDW 17.9 H, MPV 7.2 L, Gran % 66.5, Lymphocytes % 22.1, Monocytes % 8.2, Eosinophils % 2.9, Basophils % 0.3, Absolute Granulocytes 5.0, Absolute Lymphocytes 1.6, Absolute Monocytes 0.6, Absolute Eosinophils 0.2, Absolute Basophils 0, PUBS MCHC 33.8, Retic Count 2.68 H 04/10/17 1610: LD Total Cancelled, LD 1 Cancelled, LD 2 Cancelled, LD 3 Cancelled, LD 4 Cancelled, LD 5 Cancelled, LD 1:LD 2 Ratio Cancelled, Retic Count Cancelled 04/10/17 1515: Haptoglobin Pending 04/10/17 1515: Anion Gap 12, Estimated GFR 8 L, BUN/Creatinine Ratio 19.1, Calcium 7.5 L, Phosphorus 3.1, Magnesium 1.7, Ferritin 650.0 H, Lactate Dehydrogenase 395, Albumin 2.9 L, CBC w Diff NO MAN DIFF REQ, RBC 2.04 L, MCV 87.0, MCH 28.9, RDW 18.1 H, MPV 7.4, Gran % 66.6, Lymphocytes % 20.4 L, Monocytes % 8.8, Eosinophils % 3.2, Basophils % 1.0, Absolute Granulocytes 5.0, Absolute Lymphocytes 1.5, Absolute Monocytes 0.7 H, Absolute Eosinophils 0.2, Absolute Basophils 0.1, PUBS MCHC 33.2 04/10/17 1500: Sodium Cancelled, Potassium Cancelled, Chloride Cancelled, Carbon Dioxide Cancelled, Anion Gap Cancelled, BUN Cancelled, Creatinine Cancelled, BUN/ Creatinine Ratio Cancelled, Phosphorus Cancelled 04/10/17 1442: CBC w Diff NO MAN DIFF REQ, RBC 2.18 L, MCV 87.3, MCH 29.5, RDW 18.5 H, MPV 7.0 L, Gran % 66.2, Lymphocytes % 20.5, Monocytes % 9.4 H, Eosinophils % 3.1, Basophils % 0.8, Absolute Granulocytes 5.5, Absolute Lymphocytes 1.7, Absolute Monocytes 0.8 H, Absolute Eosinophils 0.3, Absolute Basophils 0.1, PUBS MCHC 33.8 04/10/17 1000: Albumin Cancelled 04/10/17 0913: CBC w Diff NO MAN DIFF REQ, RBC 2.10 L, MCV 86.7, MCH 29.9, RDW 20.1 H, MPV 7.1 L, Gran % 66.5, Lymphocytes % 20.9, Monocytes % 7.6, Eosinophils % 4.2, Basophils % 0.8, Absolute Granulocytes 4.7, Absolute Lymphocytes 1.5, Absolute Monocytes 0.5, Absolute Eosinophils 0.3, Absolute Basophils 0.1, PUBS MCHC 34.5 04/10/17 0700: Troponin I Cancelled 04/10/17 0652: Anion Gap 15, Estimated GFR 8 L, BUN/Creatinine Ratio 18.2, Troponin I 0.02 04/10/17 0145: Troponin I 0.03 04/09/17 2026: CBC w Diff NO MAN DIFF REQ, RBC 1.75 L, MCV 91.8, MCH 31.2 H, RDW 20.0 H, MPV 7.7, Gran % 68.0, Lymphocytes % 19.1 L, Monocytes % 8.1, Eosinophils % 4.4, Basophils % 0.4, Absolute Granulocytes 5.9, Absolute Lymphocytes 1.7, Absolute Monocytes 0.7 H, Absolute Eosinophils 0.4, Absolute Basophils 0, PUBS MCHC 34.0 04/09/171946: Anion Gap 13, Estimated GFR 10 L, BUN/Creatinine Ratio 16.2, Glucose 91, Calcium 8.1 L, Total Bilirubin 0.5, AST 23, ALT 27, Alkaline Phosphatase 182 H , Troponin I 0.03, Total Protein 5.2 L, Albumin 2.8 L, Globulin 2.4, Albumin/ Globulin Ratio 1.2 Vital Signs Date Time Temp Pulse Resp B/P B/P Pulse O2 O2 Flow FiO2 Mean Ox Delivery Rate 04/11 0648 98.1 86 20 138/80 94 Room Air 04/11 0200 97.5 84 20 134/72 04/11 0000 Room Air Room Air 04/10 2251 97.3 99 16 148/78 96 Room Air 04/10 2157 95 140/80 04/10 2157 95 140/80 04/10 2156 95 140/80 04/10 1357 100 Room Air 04/10 1320 97.9 82 2 130/72 100 Room Air 04/10 1240 99 20 134/78 04/10 1034 98.2 96 18 154/86 04/10 1034 98.2 96 18 154/86 04/10 1034 98.2 96 18 154/86 04/10 1033 98.2 96 18 154/86 98 Room Air
--- NOTE | 2017-04-11 13:33 | PN- Nephrology ---
Assessment/Plan Assessment: 1. ESRD 2. Severe anemia requiring repeated packed RBC transfusions. Given the findings of positive stool and vomitus for occult blood, and the lack of clinical evidence for hemolysis and absence of overt intra-abdominal or retroperitoneal bleeding on imaging study, GI blood loss remains the most likely etiology 3. Bipolar disorder 4. History of chronic noncompliance Suggestion: 1. Continue to monitor vital signs and hemoglobin closely with further transfusions as needed 2. GI follow-up 3. Hemodialysis tomorrow morning Subjective Subjective: Patient denies any vomiting or diarrhea, and he states that he does not have any overt bleeding from anywhere. He has required further packed RBC transfusion for a falling hemoglobin. Abdominal CT scan failed to reveal evidence for a retroperitoneal hematoma or other intra-abdominal pathology. He appears to be euvolemic and serum potassium is currently not a problem. Objective Vital Signs and I&Os Vital Signs Date Time Temp Pulse Resp B/P B/P Pulse O2 O2 Flow FiO2 Mean Ox Delivery Rate 04/11 1200 79 04/11 1031 88 1368/80 04/11 1029 88 138/80 04/11 1028 88 138/80 04/11 1000 88 04/11 0800 98.1 86 20 138/80 04/11 0648 98.1 86 20 138/80 94 Room Air 04/11 0200 97.5 84 20 134/72 04/11 0000 Room Air Room Air 04/10 2251 97.3 99 16 148/78 96 Room Air 04/10 2157 95 140/80 04/10 2157 95 140/80 04/10 2156 95 140/80 04/10 1357 100 Room Air Intake & Output 04/11 1600 04/11 0400 04/10 1600 04/10 0400 04/09 1600 04/09 0400 Intake Total 250 300 150 350 Output Total 0 Balance 250 300 150 350 Intake, Blood 100 350 Product Intake, Oral 250 300 50 Number 0 Bowel Movements Output, Urine 0 Patient 213 lb 210 lb Weight Weight Standing Scale Measurement Method Physical Exam: General: Well-developed white male in no acute distress Skin: No rash or jaundice HEENT: Conjunctivae pale, sclerae anicteric, mucous membranes moist Neck: Without masses or thyromegaly, no supraclavicular or cervical adenopathy Chest: Diminished breath sounds at bases, no rales or rhonchi Heart: Regular rate and rhythm without S3 or rub Abdomen: Obese, soft and nontender without palpable masses or organomegaly Extremities: Without cyanosis or edema, left lower arm AVF patent Neuro: No focal findings, no asterixis or myoclonus Results Pertinent Lab Results: Laboratory Tests 04/11 04/11 0645 0630 Chemistry Sodium (137 - 145 mmol/L) 137 Potassium (3.5 - 5.1 mmol/L) 3.8 Chloride (98 - 107 mmol/L) 100 Carbon Dioxide (22 - 30 mmol/L) 27 Anion Gap (5 - 16) 10 BUN (9 - 20 mg/dL) 56 H Creatinine (0.7 - 1.2 mg/dL) 4.5 H Estimated GFR (>60 ml/min) 13 L BUN/Creatinine Ratio (7 - 25 %) 12.4 Hematology CBC w Diff NO MAN DIFF REQ WBC (4.8 - 10.8 /CUMM) 6.4 RBC (4.70 - 6.10 /CUMM) 2.13 L Hgb (14.0 - 18.0 G/DL) 6.3 *L Hct (42 - 52 %) 18.7 *L MCV (80.0 - 94.0 FL) 87.4 MCH (27.0 - 31.0 PG) 29.5 RDW (11.5 - 14.5 %) 18.6 H Plt Count (130 - 400 /CUMM) 239 MPV (7.4 - 10.4 FL) 7.5 Gran % (42.2 - 75.2 %) 68.3 Lymphocytes % (20.5 - 51.1 %) 19.2 L Monocytes % (1.7 - 9.3 %) 7.6 Eosinophils % (0 - 5 %) 4.1 Basophils % (0.0 - 2.0 %) 0.8 Absolute Granulocytes (1.4 - 6.5 /CUMM) 4.4 Absolute Lymphocytes (1.2 - 3.4 /CUMM) 1.2 Absolute Monocytes (0.10 - 0.60 /CUMM) 0.5 Absolute Eosinophils (0.0 - 0.7 /CUMM) 0.3 Absolute Basophils (0.0 - 0.2 /CUMM) 0 PUBS MCHC (33.0 - 37.0 G/DL) 33.7 04/10 04/10 04/10 1900 1610 1515 Chemistry LD Total Cancelled LD 1 Cancelled LD 2 Cancelled LD 3 Cancelled LD 4 Cancelled LD 5 Cancelled LD 1:LD 2 Ratio Cancelled Hematology CBC w Diff NO MAN DIFF REQ WBC (4.8 - 10.8 /CUMM) 7.5 RBC (4.70 - 6.10 /CUMM) 2.53 L Hgb (14.0 - 18.0 G/DL) 7.3 *L Hct (42 - 52 %) 21.7 L MCV (80.0 - 94.0 FL) 86.0 MCH (27.0 - 31.0 PG) 29.0 RDW (11.5 - 14.5 %) 17.9 H Plt Count (130 - 400 /CUMM) 263 MPV (7.4 - 10.4 FL) 7.2 L Gran % (42.2 - 75.2 %) 66.5 Lymphocytes % (20.5 - 51.1 %) 22.1 Monocytes % (1.7 - 9.3 %) 8.2 Eosinophils % (0 - 5 %) 2.9 Basophils % (0.0 - 2.0 %) 0.3 Absolute Granulocytes (1.4 - 6.5 /CUMM) 5.0 Absolute Lymphocytes (1.2 - 3.4 /CUMM) 1.6 Absolute Monocytes (0.10 - 0.60 /CUMM) 0.6 Absolute Eosinophils (0.0 - 0.7 /CUMM) 0.2 Absolute Basophils (0.0 - 0.2 /CUMM) 0 PUBS MCHC (33.0 - 37.0 G/DL) 33.8 Retic Count (0.5 - 2.0 %) 2.68 H Cancelled Haptoglobin Pending 04/10 04/10 1515 1500 Chemistry Sodium (137 - 145 mmol/L) 134 L Cancelled Potassium (3.5 - 5.1 mmol/L) 5.0 Cancelled Chloride (98 - 107 mmol/L) 96 L Cancelled Carbon Dioxide (22 - 30 mmol/L) 26 Cancelled Anion Gap (5 - 16) 12 Cancelled BUN (9 - 20 mg/dL) 141 *H Cancelled Creatinine (0.7 - 1.2 mg/dL) 7.4 *H Cancelled Estimated GFR (>60 ml/min) 8 L BUN/Creatinine Ratio (7 - 25 %) 19.1 Cancelled Calcium (8.4 - 10.2 mg/dL) 7.5 L Phosphorus (2.5 - 4.5 mg/dL) 3.1 Cancelled Magnesium (1.6 - 2.3 mg/dL) 1.7 Ferritin (17.9 - 464 ng/mL) 650.0 H Lactate Dehydrogenase (313 - 618 U/L) 395 Albumin (3.5 - 5.0 g/dL) 2.9 L Hematology CBC w Diff NO MAN DIFF REQ WBC (4.8 - 10.8 /CUMM) 7.5 RBC (4.70 - 6.10 /CUMM) 2.04 L Hgb (14.0 - 18.0 G/DL) 5.9 *L Hct (42 - 52 %) 17.8 *L MCV (80.0 - 94.0 FL) 87.0 MCH (27.0 - 31.0 PG) 28.9 RDW (11.5 - 14.5 %) 18.1 H Plt Count (130 - 400 /CUMM) 254 MPV (7.4 - 10.4 FL) 7.4 Gran % (42.2 - 75.2 %) 66.6 Lymphocytes % (20.5 - 51.1 %) 20.4 L Monocytes % (1.7 - 9.3 %) 8.8 Eosinophils % (0 - 5 %) 3.2 Basophils % (0.0 - 2.0 %) 1.0 Absolute Granulocytes (1.4 - 6.5 /CUMM) 5.0 Absolute Lymphocytes (1.2 - 3.4 /CUMM) 1.5 Absolute Monocytes (0.10 - 0.60 /CUMM) 0.7 H Absolute Eosinophils (0.0 - 0.7 /CUMM) 0.2 Absolute Basophils (0.0 - 0.2 /CUMM) 0.1 PUBS MCHC (33.0 - 37.0 G/DL) 33.2 04/10 04/10 1442 UNK Chemistry Albumin Cancelled Hematology CBC w Diff NO MAN DIFF REQ WBC (4.8 - 10.8 /CUMM) 8.3 RBC (4.70 - 6.10 /CUMM) 2.18 L Hgb (14.0 - 18.0 G/DL) 6.4 *L Hct (42 - 52 %) 19.0 *L MCV (80.0 - 94.0 FL) 87.3 MCH (27.0 - 31.0 PG) 29.5 RDW (11.5 - 14.5 %) 18.5 H Plt Count (130 - 400 /CUMM) 251 MPV (7.4 - 10.4 FL) 7.0 L Gran % (42.2 - 75.2 %) 66.2 Lymphocytes % (20.5 - 51.1 %) 20.5 Monocytes % (1.7 - 9.3 %) 9.4 H Eosinophils % (0 - 5 %) 3.1 Basophils % (0.0 - 2.0 %) 0.8 Absolute Granulocytes (1.4 - 6.5 /CUMM) 5.5 Absolute Lymphocytes (1.2 - 3.4 /CUMM) 1.7 Absolute Monocytes (0.10 - 0.60 /CUMM) 0.8 H Absolute Eosinophils (0.0 - 0.7 /CUMM) 0.3 Absolute Basophils (0.0 - 0.2 /CUMM) 0.1 PUBS MCHC (33.0 - 37.0 G/DL) 33.8 04/10 04/10 04/10 0913 0700 0652 Chemistry Sodium (137 - 145 mmol/L) 135 L Potassium (3.5 - 5.1 mmol/L) 4.6 Chloride (98 - 107 mmol/L) 98 Carbon Dioxide (22 - 30 mmol/L) 22 Anion Gap (5 - 16) 15 BUN (9 - 20 mg/dL) 124 *H Creatinine (0.7 - 1.2 mg/dL) 6.8 *H Estimated GFR (>60 ml/min) 8 L BUN/Creatinine Ratio (7 - 25 %) 18.2 Troponin I (<0.11 ng/ml) Cancelled 0.02 Hematology CBC w Diff NO MAN DIFF REQ WBC (4.8 - 10.8 /CUMM) 7.1 RBC (4.70 - 6.10 /CUMM) 2.10 L Hgb (14.0 - 18.0 G/DL) 6.3 *L Hct (42 - 52 %) 18.1 *L MCV (80.0 - 94.0 FL) 86.7 MCH (27.0 - 31.0 PG) 29.9 RDW (11.5 - 14.5 %) 20.1 H Plt Count (130 - 400 /CUMM) 282 MPV (7.4 - 10.4 FL) 7.1 L Gran % (42.2 - 75.2 %) 66.5 Lymphocytes % (20.5 - 51.1 %) 20.9 Monocytes % (1.7 - 9.3 %) 7.6 Eosinophils % (0 - 5 %) 4.2 Basophils % (0.0 - 2.0 %) 0.8 Absolute Granulocytes (1.4 - 6.5 /CUMM) 4.7 Absolute Lymphocytes (1.2 - 3.4 /CUMM) 1.5 Absolute Monocytes (0.10 - 0.60 /CUMM) 0.5 Absolute Eosinophils (0.0 - 0.7 /CUMM) 0.3 Absolute Basophils (0.0 - 0.2 /CUMM) 0.1 PUBS MCHC (33.0 - 37.0 G/DL) 34.5 04/105 2025 1946 Chemistry Sodium (137 - 145 mmol/L) 135 L Potassium (3.5 - 5.1 mmol/L) 4.5 Chloride (98 - 107 mmol/L) 98 Carbon Dioxide (22 - 30 mmol/L) 24 Anion Gap (5 - 16) 13 BUN (9 - 20 mg/dL) 94 H Creatinine (0.7 - 1.2 mg/dL) 5.8 *H Estimated GFR (>60 ml/min) 10 L BUN/Creatinine Ratio (7 - 25 %) 16.2 Glucose (65 - 99 mg/dL) 91 Calcium (8.4 - 10.2 mg/dL) 8.1 L Total Bilirubin (0.2 - 1.3 mg/dL) 0.5 AST (17 - 59 U/L) 23 ALT (21 - 72 U/L) 27 Alkaline Phosphatase (< 127 U/L) 182 H Troponin I (<0.11 ng/ml) 0.03 0.03 Total Protein (6.3 - 8.2 g/dL) 5.2 L Albumin (3.5 - 5.0 g/dL) 2.8 L Globulin (1.9 - 4.2 gm/dL) 2.4 Albumin/Globulin Ratio (1.1 - 2.2 %) 1.2 Hematology CBC w Diff NO MAN DIFF REQ WBC (4.8 - 10.8 /CUMM) 8.7 RBC (4.70 - 6.10 /CUMM) 1.75 L Hgb (14.0 - 18.0 G/DL) 5.5 *L Hct (42 - 52 %) 16.1 *L MCV (80.0 - 94.0 FL) 91.8 MCH (27.0 - 31.0 PG) 31.2 H RDW (11.5 - 14.5 %) 20.0 H Plt Count (130 - 400 /CUMM) 315 MPV (7.4 - 10.4 FL) 7.7 Gran % (42.2 - 75.2 %) 68.0 Lymphocytes % (20.5 - 51.1 %) 19.1 L Monocytes % (1.7 - 9.3 %) 8.1 Eosinophils % (0 - 5 %) 4.4 Basophils % (0.0 - 2.0 %) 0.4 Absolute Granulocytes (1.4 - 6.5 /CUMM) 5.9 Absolute Lymphocytes (1.2 - 3.4 /CUMM) 1.7 Absolute Monocytes (0.10 - 0.60 /CUMM) 0.7 H Absolute Eosinophils (0.0 - 0.7 /CUMM) 0.4 Absolute Basophils (0.0 - 0.2 /CUMM) 0 PUBS MCHC (33.0 - 37.0 G/DL) 34.0
[2017-04-11 14:14] VITALS: BP 130/60
[2017-04-11 16:00] VITALS: BP 130/60
--- NOTE | 2017-04-11 16:00 | PN- Psychiatry ---
Assessment/Plan Impression: Identifying Info: 61-year-old single conserved male well known to this service presents to [place] emergency department on 04/09/2017 which complaint of shortness of breath. Seen today on telemetry. SUBJECTIVE Patient presents today without psychiatric complaint. Endorsing fatigue. Brief ROS Gait: Not observed Sleep: Adequate Appetite: Adequate OBJECTIVE Discussed case with Social Work, Patient discussed by CCT last week, is having [employer] hearing today. Mental Status Exam Presentation/Appearance: Calm and cooperative with evaluation but minimally verbal. Hospital garb. Receiving blood transfusion during interview. Lying in bed. Orientation: Oriented to self and place, not date Sensorium: Somnolent, easy to arouse Eye contact: Appropriate Affect: Somewhat blunted Mood: "Alright" Depression: Denies Anxiety: Denies Thought Content: - Denies SI/HI, AH/VH, PI. States and also believes they will not kill themselves. - Denies Hopeless/Helpless Thoughts Thought Process: Linear Associations: Appropriate Speech: Normal tone and rate, short responses Judgment: Fair Insight: Fair Cognition: Memory: Grossly intact Attention/Concentration: Grossly intact Fund of Knowledge: Adequate Abstractions: Not assessed MMSE: Not completed ASSESSMENT 61-year-old conserved single male with history of severe bipolar disorder requiring multiple long-term hospitalizations currently presents as psychiatrically asymptomatic. While in hospital it would be prudent to continue psychotropics as taken at home as medically able. While recent Utoxes have been negative collateral reports have been concerning and he should be monitored for ETOH withdrawal symptoms. Diagnosis Bipolar I disorder, severe, most recent episode manic by history Alcohol use disorder by history Cannabis use disorder A total of 30 minutes was spent with the patient with more than 50% of the time spent in counseling and/or coordination of care. Suggestion: - Continue psychtropics as currently ordered. - We will continue to collect collateral, work with Social Work, [facility], and Care for dispo. Thank you for including psychiatry in this case we'll continue to follow. Subjective Subjective: as above Objective Last 24 Hrs of Vital Signs/I&O Current Medications Sig/Grace Start time Last Medication Dose Route Stop Time Status Admin Acetaminophen 325 MG Q6-PRN PRN 04/09 2245 AC 04/10 PO 0239 Albuterol Sulfate 2 PUF Q4P PRN 04/09 2300 AC INH Aripiprazole 10 MG DAILY 04/10 1000 DC 04/10 PO 1034 Aspirin Buffered 81 MG 0800 04/10 0800 AC 04/10 PO 0824 Atorvastatin Calcium 40 MG 1700 04/10 1700 AC 04/10 PO 2158 Benztropine Mesylate 0.5 MG BID 04/10 1000 AC 04/11 PO 1029 Cinacalcet 30 MG DAILY 04/10 1000 AC 04/11 PO 1031 Epoetin Florentino 8,000 UNIT TUES THURS SAT PRN 04/10 1500 AC IV Furosemide 80 MG 0800,2200 04/10 0800 AC 04/11 PO 1026 Gabapentin 300 MG AT BEDTIME 04/10 0215 AC 04/10 PO 2155 Hydralazine HCl 20 MG BID 04/10 1000 AC 04/11 PO 1028 Labetalol HCl 100 MG BID 04/10 1000 AC 04/11 PO 1031 Lamotrigine 150 MG DAILY 04/10 1000 AC 04/11 PO 1030 Lorazepam 0 Q1P PRN 04/11 0045 AC IV Melatonin 5 MG ONCE ONE 04/11 0500 DC PO 04/11 0501 Multivitamins 1 TAB 1000 04/10 1000 AC 04/11 PO 1031 Oxcarbazepine 600 MG BID 04/10 1000 AC 04/11 PO 1032 Pantoprazole Sodium 40 MG DAILY 04/10 1000 AC 04/11 IV 0903 Propranolol HCl 10 MG BID 04/10 1000 AC 04/11 PO 1029 Quetiapine Fumarate 400 MG AT BEDTIME 04/10 0215 AC 04/10 PO 2156 Sevelamer Carbonate 2,400 MG TIDAC 04/10 0800 AC 04/11 PO 1436 Tiotropium [place] 1 PUF DAILY 04/10 1000 AC 04/11 INH 1437 Laboratory Tests 04/11/17 0645: CBC w Diff NO MAN DIFF REQ, RBC 2.13 L, MCV 87.4, MCH 29.5, RDW 18.6 H, MPV 7.5, Gran % 68.3, Lymphocytes % 19.2 L, Monocytes % 7.6, Eosinophils % 4.1, Basophils % 0.8, Absolute Granulocytes 4.4, Absolute Lymphocytes 1.2, Absolute Monocytes 0.5, Absolute Eosinophils 0.3, Absolute Basophils 0, PUBS MCHC 33.7 04/11/17 0630: Anion Gap 10, Estimated GFR 13 L, BUN/Creatinine Ratio 12.4 04/10/17 1900: CBC w Diff NO MAN DIFF REQ, RBC 2.53 L, MCV 86.0, MCH 29.0, RDW 17.9 H, MPV 7.2 L, Gran % 66.5, Lymphocytes % 22.1, Monocytes % 8.2, Eosinophils % 2.9, Basophils % 0.3, Absolute Granulocytes 5.0, Absolute Lymphocytes 1.6, Absolute Monocytes 0.6, Absolute Eosinophils 0.2, Absolute Basophils 0, PUBS MCHC 33.8, Retic Count 2.68 H 04/10/17 1610: LD Total Cancelled, LD 1 Cancelled, LD 2 Cancelled, LD 3 Cancelled, LD 4 Cancelled, LD 5 Cancelled, LD 1:LD 2 Ratio Cancelled, Retic Count Cancelled Vital Signs Date Time Temp Pulse Resp B/P B/P Pulse O2 O2 Flow FiO2 Mean Ox Delivery Rate 04/11 1414 98.2 80 20 130/60 99 04/11 1200 79 04/11 1031 88 1368/80 04/11 1029 88 138/80 04/11 1028 88 138/80 04/11 1000 88 04/11 0800 98.1 86 20 138/80 04/11 0648 98.1 86 20 138/80 94 Room Air 04/11 0200 97.5 84 20 134/72 04/11 0000 Room Air Room Air 04/10 2251 97.3 99 16 148/78 96 Room Air 04/10 2157 95 140/80 04/10 215 95 140/80 04/10 2156 95 140/80 Intake & Output 04/11 1600 04/11 0800 04/11 0000 Intake Total 250 300 Output Total Balance 250 300 Intake, Oral 250 300
--- NOTE | 2017-04-11 19:18 | PN- Cardiology ---
Subjective Subjective: * Patient is more alert without complaints. * persistent anemia with heme +ve stool Objective Vital Signs and I&Os Vital Signs Date Time Temp Pulse Resp B/P B/P Pulse O2 O2 Flow FiO2 Mean Ox Delivery Rate 04/11 1414 98.2 80 20 130/60 99 04/11 1400 78 04/11 1200 79 04/11 1031 88 1368/80 04/11 1029 88 138/80 04/11 1028 88 138/80 04/11 1000 88 04/11 0800 98.1 86 20 138/80 04/11 0648 98.1 86 20 138/80 94 Room Air 04/11 0200 97.5 84 20 134/72 04/11 0000 Room Air Room Air 04/10 2251 97.3 99 16 148/78 96 Room Air 04/10 2157 95 140/80 04/10 2157 95 140/80 04/10 2156 95 140/80 Intake & Output 04/11 1600 04/11 0800 04/11 0000 04/10 1600 04/10 0800 04/10 0000 Intake Total 600 250 300 150 350 Output Total 0 0 Balance 600 250 300 150 350 Intake, Blood 100 350 Product Intake, Oral 600 250 300 50 Number 0 0 Bowel Movements Output, Urine 0 0 Patient 213 lb 210 lb Weight Weight Standing Scale Measurement Method Physical Exam: General: WD/WN male in NAD; awake and slow to respond HEENT: NC/AT, PERRL, EOMI Neck: no JVD, no carotid bruit Heart: RRR with 2/6 systolic murmur Lungs: clear bilaterally ABdomen: soft, NT, +ve bowel sounds Extremities: no edema, left arm fistula Assessment/Plan Assessment/Plan * This patient was recently seen in the office on April 06 and was doing well. He is now status post two cardiac catheterizations showing clear coronaries. He has not received any stent. His shortness of breath is improved compared to the day of admission. His tachycardia that was noted upon admission I would attribute to his anemia. * The patient's anemia is likely multifactorial and due to decreased production in the setting of renal failure and active GI bleeding. Agree with transfusion for now. Continue telemetry? Yes
[2017-04-11 23:27] VITALS: BP 118/72
[2017-04-12 00:19] LABS: ABSOLUTE BASOPHIL COUNT 0.1 /CUMM (0.0-0.2); ABSOLUTE EOSINOPHIL COUNT 0.4 /CUMM (0.0-0.7); ABSOLUTE GRANULOCYTE CT 4.5 /CUMM (1.4-6.5); ABSOLUTE LYMPH COUNT 1.6 /CUMM (1.2-3.4); ABSOLUTE MONOCYTE COUNT 0.6 /CUMM (0.10-0.60); BASOPHIL % 0.8 % (0.0-2.0); EOSINOPHIL % 5.3 % (0-5); GRANULOCYTE % 63.1 % (42.2-75.2); MEAN CORPUSCULAR HGB 29.6 PG (27.0-31.0); MEAN CORPUSCULAR HGB CONC 33.8 G/DL (33.0-37.0); MEAN CORPUSCULAR VOLUME 87.6 FL (80.0-94.0); MEAN PLATELET VOLUME 7.6 FL (7.4-10.4); PLATELET COUNT 240 /CUMM (130-400); RBC DISTRIBUTION WIDTH 17.6 % (11.5-14.5); RED BLOOD CELL CT 2.51 /CUMM (4.70-6.10); WHITE BLOOD CELL COUNT 7.1 /CUMM (4.8-10.8)
[2017-04-12 06:29] VITALS: BP 120/70
--- NOTE | 2017-04-12 07:38 | PN- Housestaff ---
Subjective Follow-up For: Symptomatic anemia. Atypical chest pain End-stage renal disease on dialysis Tele-Events Since Last Visit: No overnight events. Patient remained in sinus rhythm with heart rate in 70s Subjective: No overnight events. Patient remained afebrile overnight. Patient seen and examined this morning bedside. He was lying in bed comfortably. He denied any chest pain, short of breath, nausea, black stools, blood in vomitus, abdominal pain and dysuria. Yesterday he received 2 blood transfusions. Review of Systems Constitutional: Reports: no symptoms. EENTM: Reports: no symptoms. Cardiovascular: Reports: no symptoms. Respiratory: Reports: no symptoms. Gastrointestinal: Reports: no symptoms. Genitourinary: Reports: no symptoms. Neurological/Psychological: Reports: no symptoms. Objective Last 24 Hrs of Vital Signs/I&O Vital Signs Date Time Temp Pulse Resp B/P B/P Pulse O2 O2 Flow FiO2 Mean Ox Delivery Rate 04/12 0629 97.3 78 20 120/70 96 Room Air 04/11 2327 98.2 75 16 118/72 96 Nasal Cannula 04/11 2153 84 138/88 04/11 2153 84 138/88 04/11 2153 84 138/88 04/11 1800 78 04/11 1600 98.2 80 20 130/60 04/11 1414 98.2 80 20 130/60 99 04/11 1400 78 04/11 1200 79 04/11 1031 88 1368/80 04/11 1029 88 138/80 04/11 1028 88 138/80 04/11 1000 88 Intake & Output 04/12 1600 04/12 0800 04/12 0000 Intake Total 660 Output Total 0 Balance 660 Intake, Blood 300 Product Intake, Oral 360 Number 0 Bowel Movements Output, Urine 0 Patient 207 lb Weight Physical Exam General Appearance: Alert, Oriented X3, Cooperative, No Acute Distress Skin Temp/Moisture Exam: Warm/Dry HEENT: Atraumatic, PERRLA, EOMI Neck: Supple Cardiovascular: Normal S1, Normal S2 Lungs: Clear to Auscultation Abdomen: Soft, No Tenderness Neurological: Normal Speech, Strength at 5/5 X4 Ext, Normal Tone, Sensation Intact Extremities: No Edema Assessment/Plan Assessment: 61 yo M active smoker with pmhx of ESRD on dialysis, HFrEF (EF 45-50% on ) hypertension, hyperlipidemia, bipolar disorder, asthma, COPD, seizure history, depression, recently went into cardiac arrest on the [facility] for stent placement presenting for shortness of breath found to have anemia with guaiac positive stool. Symptomatic anemia: -Patient came in with an H&H 5.5/16.1 and having exertional dyspnea and atypical chest pain. -Plan to give the patient blood transfusion. He received 3 blood transfusion in ED -We will keep the hemoglobin more than 8 considering patient's significant cardiac history in the past. -We will check the CBCs for H&H after blood transfusion. -We will get the GI consultation to rule out any active bleeding in GI tract as patient having history of black stools. -We will monitor the patient's if he become unstable hemodynamically we will give patient blood transfusion or call GI. -IV Protonix -No NSAIDs -We'll follow the GI recommendations and we will try to get any records related to an endoscopy or colonoscopy in the past.(04/11/17) -Yesterday patient received 2 blood transfusions and last night his hemoglobin was 7.4. We will check the hemoglobin today again.(04/12/17) Atypical chest pain: -We will do serial EKGs and troponins to rule out any ischemic cardiac injury considering patient's significant past medical history of cardiac ischemia. -The got the records from [facility] yesterday. They mentioned that patient got the cardiac cath but during the cardiac cath he went to cardiogenic shock. They mentioned that vessels were clear.(04/11/17) -Angiography was done in February 2017 that showed normal coronary vessels. Left heart ejection fraction 40%. In record they also mention about takotsubo cardiomyopathy. patient also having wall motion abnormalities of anterolateral and apical.(04/11/17) -We will follow the cardiology recommendations. -Echocardiogram History of end-stage renal disease on dialysis: -We will get the nephrology consult -Patient having AV fistula on left arm -patient is getting dialysis on sunday, and sunday. -We will check the creatinine and BUN we will follow the BEP. -We will continue the Nephro-Tara, Savelamer, sensipar and procrit injection -Patient got the dialysis yesterday and his hemoglobin improved to 7.3 but this morning it's again 6.4. Patient will be kept low-sodium diet 2 g and 2 g potassium with water restriction to 1200ml.(04/11/17) -Patient will go for dialysis today.(04/12/17) History of bipolar disorder: We'll continue the benztropine, aripiprazole and seroquel. We will follow the psychiatry recommendations. History of CHF with systolic dysfunction, hyperlipidemia and hypertension: -To continue the Lasix and aspirin -We will continue propranolol labetalol and hydralazine for hypertension. -Continue Lipitor for hyperlipidemia History of seizures: -We will continue oxcarbazpine and lamotrigine DVT prophylaxis: Mechanical and subcutaneous heparin CODE STATUS: Full code Problem List: 1. Atypical chest pain 2. Symptomatic anemia 3. ESRD (end stage renal disease) on dialysis Pain Ratin Pain Location: none Pain Goal: Remain pain free Pain Plan: tylenol for mild pain Tomorrow's Labs & Rationales: bep/cbc
[2017-04-12 08:14] LABS: ABSOLUTE BASOPHIL COUNT 0.1 /CUMM (0.0-0.2); ABSOLUTE EOSINOPHIL COUNT 0.4 /CUMM (0.0-0.7); ABSOLUTE GRANULOCYTE CT 4.5 /CUMM (1.4-6.5); ABSOLUTE LYMPH COUNT 1.4 /CUMM (1.2-3.4); ABSOLUTE MONOCYTE COUNT 0.6 /CUMM (0.10-0.60); BASOPHIL % 0.8 % (0.0-2.0); EOSINOPHIL % 5.5 % (0-5); GRANULOCYTE % 64.6 % (42.2-75.2); HEMATOCRIT 22.4 % (42-52); MEAN CORPUSCULAR HGB 30.1 PG (27.0-31.0); MEAN CORPUSCULAR VOLUME 88.7 FL (80.0-94.0); MEAN PLATELET VOLUME 7.4 FL (7.4-10.4); PLATELET COUNT 233 /CUMM (130-400); RBC DISTRIBUTION WIDTH 18.3 % (11.5-14.5); RED BLOOD CELL CT 2.53 /CUMM (4.70-6.10)
[2017-04-12 09:49] LABS: ABSOLUTE BASOPHIL COUNT 0.1 /CUMM (0.0-0.2); ABSOLUTE EOSINOPHIL COUNT 0.4 /CUMM (0.0-0.7); ABSOLUTE GRANULOCYTE CT 4.5 /CUMM (1.4-6.5); ABSOLUTE LYMPH COUNT 1.3 /CUMM (1.2-3.4); ABSOLUTE MONOCYTE COUNT 0.6 /CUMM (0.10-0.60); BASOPHIL % 1.1 % (0.0-2.0); EOSINOPHIL % 5.4 % (0-5); GRANULOCYTE % 66.2 % (42.2-75.2); HEMATOCRIT 22.4 % (42-52); MEAN CORPUSCULAR HGB 29.8 PG (27.0-31.0); MEAN CORPUSCULAR HGB CONC 33.8 G/DL (33.0-37.0); MEAN PLATELET VOLUME 7.6 FL (7.4-10.4); PLATELET COUNT 235 /CUMM (130-400); RBC DISTRIBUTION WIDTH 17.7 % (11.5-14.5); RED BLOOD CELL CT 2.55 /CUMM (4.70-6.10); WHITE BLOOD CELL COUNT 6.8 /CUMM (4.8-10.8)
--- NOTE | 2017-04-12 09:51 | PN- Att Addend ---
Attending Addendum Attending Brief Note Hemodialysis in progress. No obvious signs or symptoms of any acute bleeding despite dropping of the hemoglobin and hematocrit were patient received more blood. Monitoring his CBC closely had CT scan of abdomen showed no signs of bleeding. No signs of any hematomas or any other abnormalities. If necessary will get a hematology consult before starting disposition plans and making sure his H&H does not continue to drop Intake & Output 04/12 1600 04/12 0400 04/11 1600 04/11 0400 04/10 1600 04/10 0400 Intake Total 660 850 300 150 350 Output Total 0 0 0 Balance 660 850 300 150 350 Intake, Blood 300 100 350 Product Intake, Oral 360 850 300 50 Number 0 0 0 Bowel Movements Output, Urine 0 0 0 Patient 207 lb 213 lb 210 lb Weight Weight Standing Scale Measurement Method Current Medications Sig/Grace Start time Last Medication Dose Route Stop Time Status Admin Acetaminophen 325 MG Q6-PRN PRN 04/09 2245 AC 04/10 PO 0239 Albuterol Sulfate 2 PUF Q4P PRN 04/09 2300 AC INH Aspirin Buffered 81 MG 0800 04/10 0800 AC 04/10 PO 0824 Atorvastatin Calcium 40 MG 1700 04/10 1700 AC 04/11 PO 1726 Benztropine Mesylate 0.5 MG BID 04/10 1000 AC 04/11 PO 2153 Cinacalcet 30 MG DAILY 04/10 1000 AC 04/11 PO 1031 Epoetin Florentino 8,000 UNIT TUES THURS SAT PRN 04/10 1500 AC IV Furosemide 80 MG 0800,2200 04/10 0800 AC 04/11 PO 2153 Gabapentin 300 MG AT BEDTIME 04/10 0215 AC 04/11 PO 2153 Hydralazine HCl 20 MG BID 04/10 1000 AC 04/11 PO 2153 Labetalol HCl 100 MG BID 04/10 1000 AC 04/11 PO 2153 Lamotrigine 150 MG DAILY 04/10 1000 AC 04/11 PO 1030 Lorazepam 0 Q1P PRN 04/11 0045 AC IV Multivitamins 1 TAB 1000 04/10 1000 AC 04/11 PO 1031 Oxcarbazepine 600 MG BID 04/10 1000 AC 04/11 PO 2153 Pantoprazole Sodium 40 MG DAILY 04/10 1000 AC 04/11 IV 0903 Propranolol HCl 10 MG BID 04/10 1000 AC 04/11 PO 2153 Quetiapine Fumarate 400 MG AT BEDTIME 04/10 0215 AC 04/11 PO 2153 Sevelamer Carbonate 2,400 MG TIDAC 04/10 0800 AC 04/11 PO 1726 Tiotropium [place] 1 PUF DAILY 04/10 1000 AC 04/11 INH 1437 Laboratory Tests 04/12/17 0840: Sodium Pending, Potassium Pending, Chloride Pending, Carbon Dioxide Pending, Anion Gap Pending, BUN Pending, Creatinine Pending, BUN/Creatinine Ratio Pending , Calcium Pending, Phosphorus Pending, Magnesium Pending, Albumin Pending, CBC w Diff Pending, WBC Pending, RBC Pending, Hgb Pending, Hct Pending, MCV Pending, MCH Pending, RDW Pending, Plt Count Pending, MPV Pending, PUBS MCHC Pending 04/12/17 0634: Anion Gap 13, Estimated GFR 8 L, BUN/Creatinine Ratio 10.1, CBC w Diff NO MAN DIFF REQ, RBC 2.53 L, MCV 88.7, MCH 30.1, RDW 18.3 H, MPV 7.4, Gran % 64.6, Lymphocytes % 20.2 L, Monocytes % 8.9, Eosinophils % 5.5 H, Basophils % 0.8, Absolute Granulocytes 4.5, Absolute Lymphocytes 1.4, Absolute Monocytes 0.6, Absolute Eosinophils 0.4, Absolute Basophils 0.1, PUBS MCHC 34.0 04/11/17 2302: CBC w Diff NO MAN DIFF REQ, RBC 2.51 L, MCV 87.6, MCH 29.6, RDW 17.6 H, MPV 7.6, Gran % 63.1, Lymphocytes % 22.0, Monocytes % 8.8, Eosinophils % 5.3 H, Basophils % 0.8, Absolute Granulocytes 4.5, Absolute Lymphocytes 1.6, Absolute Monocytes 0.6, Absolute Eosinophils 0.4, Absolute Basophils 0.1, PUBS MCHC 33.8 04/11/17 0645: CBC w Diff NO MAN DIFF REQ, RBC 2.13 L, MCV 87.4, MCH 29.5, RDW 18.6 H, MPV 7.5, Gran % 68.3, Lymphocytes % 19.2 L, Monocytes % 7.6, Eosinophils % 4.1, Basophils % 0.8, Absolute Granulocytes 4.4, Absolute Lymphocytes 1.2, Absolute Monocytes 0.5, Absolute Eosinophils 0.3, Absolute Basophils 0, PUBS MCHC 33.7 04/11/17 0630: Anion Gap 10, Estimated GFR 13 L, BUN/Creatinine Ratio 12.4 04/11/17 0032: Methadone Screen Cancelled, Barbiturate Screen Cancelled, Ur Phencyclidine Scrn Cancelled, Amphetamines Screen Cancelled, U Benzodiazepines Scrn Cancelled, Urine Cocaine Screen Cancelled, Urine Cannabis Screen Cancelled 04/10/17 1900: CBC w Diff NO MAN DIFF REQ, RBC 2.53 L, MCV 86.0, MCH 29.0, RDW 17.9 H, MPV 7.2 L, Gran % 66.5, Lymphocytes % 22.1, Monocytes % 8.2, Eosinophils % 2.9, Basophils % 0.3, Absolute Granulocytes 5.0, Absolute Lymphocytes 1.6, Absolute Monocytes 0.6, Absolute Eosinophils 0.2, Absolute Basophils 0, PUBS MCHC 33.8, Retic Count 2.68 H 04/10/17 1610: LD Total Cancelled, LD 1 Cancelled, LD 2 Cancelled, LD 3 Cancelled, LD 4 Cancelled, LD 5 Cancelled, LD 1:LD 2 Ratio Cancelled, Retic Count Cancelled 04/10/17 1515: Haptoglobin Pending 04/10/17 1515: Anion Gap 12, Estimated GFR 8 L, BUN/Creatinine Ratio 19.1, Calcium 7.5 L, Phosphorus 3.1, Magnesium 1.7, Iron 175, TIBC 196 L, Ferritin 650.0 H, Lactate Dehydrogenase 395, Albumin 2.9 L, CBC w Diff NO MAN DIFF REQ, RBC 2.04 L, MCV 87.0, MCH 28.9, RDW 18.1 H, MPV 7.4, Gran % 66.6, Lymphocytes % 20.4 L, Monocytes % 8.8, Eosinophils % 3.2, Basophils % 1.0, Absolute Granulocytes 5.0, Absolute Lymphocytes 1.5, Absolute Monocytes 0.7 H, Absolute Eosinophils 0.2, Absolute Basophils 0.1, PUBS MCHC 33.2 04/10/17 1500: Sodium Cancelled, Potassium Cancelled, Chloride Cancelled, Carbon Dioxide Cancelled, Anion Gap Cancelled, BUN Cancelled, Creatinine Cancelled, BUN/ Creatinine Ratio Cancelled, Phosphorus Cancelled 04/10/17 1442: CBC w Diff NO MAN DIFF REQ, RBC 2.18 L, MCV 87.3, MCH 29.5, RDW 18.5 H, MPV 7.0 L, Gran % 66.2, Lymphocytes % 20.5, Monocytes % 9.4 H, Eosinophils % 3.1, Basophils % 0.8, Absolute Granulocytes 5.5, Absolute Lymphocytes 1.7, Absolute Monocytes 0.8 H, Absolute Eosinophils 0.3, Absolute Basophils 0.1, PUBS MCHC 33.8 04/10/17 1000: Albumin Cancelled 04/10/17 0913: CBC w Diff NO MAN DIFF REQ, RBC 2.10 L, MCV 86.7, MCH 29.9, RDW 20.1 H, MPV 7.1 L, Gran % 66.5, Lymphocytes % 20.9, Monocytes % 7.6, Eosinophils % 4.2, Basophils % 0.8, Absolute Granulocytes 4.7, Absolute Lymphocytes 1.5, Absolute Monocytes 0.5, Absolute Eosinophils 0.3, Absolute Basophils 0.1, PUBS MCHC 34.5 04/10/17 0700: Troponin I Cancelled 04/10/17 0652: Anion Gap 15, Estimated GFR 8 L, BUN/Creatinine Ratio 18.2, Troponin I 0.02 04/10/17 0145: Troponin I 0.03 04/09/172025: CBC w Diff NO MAN DIFF REQ, RBC 1.75 L, MCV 91.8, MCH 31.2 H, RDW 20.0 H, MPV 7.7, Gran % 68.0, Lymphocytes % 19.1 L, Monocytes % 8.1, Eosinophils % 4.4, Basophils % 0.4, Absolute Granulocytes 5.9, Absolute Lymphocytes 1.7, Absolute Monocytes 0.7 H, Absolute Eosinophils 0.4, Absolute Basophils 0, PUBS MCHC 34.0 04/09/17 1947: Anion Gap 13, Estimated GFR 10 L, BUN/Creatinine Ratio 16.2, Glucose 91, Calcium 8.1 L, Total Bilirubin 0.5, AST 23, ALT 27, Alkaline Phosphatase 182 H , Troponin I 0.03, Total Protein 5.2 L, Albumin 2.8 L, Globulin 2.4, Albumin/ Globulin Ratio 1.2 Vital Signs Date Time Temp Pulse Resp B/P B/P Pulse O2 O2 Flow FiO2 Mean Ox Delivery Rate 04/12 0629 97.3 78 20 120/70 96 Room Air 04/11 2327 98.2 75 16 118/72 96 Nasal Cannula 04/11 215 84 138/88 04/11 2153 84 138/88 04/11 2153 84 138/88 04/11 1800 78 04/11 1600 98.2 80 20 130/60 04/11 1414 98.2 80 20 130/60 99 04/11 1400 78 04/11 1200 79 04/11 1031 88 1368/80 04/11 1029 88 138/80 04/11 1028 88 138/80 04/11 1000 88
--- NOTE | 2017-04-12 10:42 | PN- Nephrology ---
Assessment/Plan Assessment: 1. ESRD 2. Severe anemia requiring repeated packed RBC transfusions. Given the findings of positive stool and vomitus for occult blood, and the lack of clinical evidence for hemolysis and absence of overt intra-abdominal or retroperitoneal bleeding on imaging study, GI blood loss remains the most likely etiology 3. Bipolar disorder 4. History of chronic noncompliance Suggestion: 1. Continue to monitor vital signs and hemoglobin closely with further transfusions as needed 2. GI follow-up 3. Hemodialysis today in progress with 3 L ultrafiltration goal over 4 hours as tolerated 4. Next hemodialysis after today for Saturday 04/14 Subjective Subjective: Offers no complaints and specifically no chest pain, nausea, vomiting, diarrhea, black stools. He was transfused 2 units of packed RBCs yesterday. Hemoglobin today is 7.6. Seen with hemodialysis which is currently in progress. Objective Vital Signs and I&Os Vital Signs Date Time Temp Pulse Resp B/P B/P Pulse O2 O2 Flow FiO2 Mean Ox Delivery Rate 04/12 0629 97.3 78 20 120/70 96 Room Air 04/11 2327 98.2 75 16 118/72 96 Nasal Cannula 04/11 2153 84 138/88 04/11 2153 84 138/88 04/11 2153 84 138/88 04/11 1800 78 04/11 1600 98.2 80 20 130/60 04/11 1414 98.2 80 20 130/60 99 04/11 1400 78 04/11 1200 79 Intake & Output 04/12 1600 04/12 0400 04/11 1600 04/11 0400 04/10 1600 04/10 0400 Intake Total 660 850 300 150 350 Output Total 0 0 0 Balance 660 850 300 150 350 Intake, Blood 300 100 350 Product Intake, Oral 360 850 300 50 Number 0 0 0 Bowel Movements Output, Urine 0 0 0 Patient 207 lb 213 lb 210 lb Weight Weight Standing Scale Measurement Method Physical Exam: General: Well-developed white male in no acute distress Skin: No rash or jaundice HEENT: Conjunctivae pale, sclerae anicteric, mucous membranes moist Neck: Without masses or thyromegaly, no supraclavicular or cervical adenopathy Chest: Clear to P & A Heart: Regular rate and rhythm without S3 or rub Abdomen: Obese, soft and nontender without palpable masses or organomegaly Extremities: Without cyanosis or edema, left lower arm AVF patent Neuro: No focal findings, no asterixis or myoclonus Results Pertinent Lab Results: Laboratory Tests 04/12 04/12 0840 0634 Chemistry Sodium (137 - 145 mmol/L) 139 140 Potassium (3.5 - 5.1 mmol/L) 4.3 4.1 Chloride (98 - 107 mmol/L) 101 101 Carbon Dioxide (22 - 30 mmol/L) 26 26 Anion Gap (5 - 16) 11 13 BUN (9 - 20 mg/dL) 72 H 70 H Creatinine (0.7 - 1.2 mg/dL) 7.0 *H 6.9 *H Estimated GFR (>60 ml/min) 8 L 8 L BUN/Creatinine Ratio (7 - 25 %) 10.3 10.1 Calcium (8.4 - 10.2 mg/dL) 7.9 L Phosphorus (2.5 - 4.5 mg/dL) 3.6 Magnesium (1.6 - 2.3 mg/dL) 2.0 Albumin (3.5 - 5.0 g/dL) 2.8 L Hematology CBC w Diff NO MAN DIFF REQ NO MAN DIFF REQ WBC (4.8 - 10.8 /CUMM) 6.8 7.0 RBC (4.70 - 6.10 /CUMM) 2.55 L 2.53 L Hgb (14.0 - 18.0 G/DL) 7.6 L 7.6 L Hct (42 - 52 %) 22.4 L 22.4 L MCV (80.0 - 94.0 FL) 88.0 88.7 MCH (27.0 - 31.0 PG) 29.8 30.1 RDW (11.5 - 14.5 %) 17.7 H 18.3 H Plt Count (130 - 400 /CUMM) 235 233 MPV (7.4 - 10.4 FL) 7.6 7.4 Gran % (42.2 - 75.2 %) 66.2 64.6 Lymphocytes % (20.5 - 51.1 %) 18.8 L 20.2 L Monocytes % (1.7 - 9.3 %) 8.5 8.9 Eosinophils % (0 - 5 %) 5.4 H 5.5 H Basophils % (0.0 - 2.0 %) 1.1 0.8 Absolute Granulocytes (1.4 - 6.5 /CUMM) 4.5 4.5 Absolute Lymphocytes (1.2 - 3.4 /CUMM) 1.3 1.4 Absolute Monocytes (0.10 - 0.60 /CUMM) 0.6 0.6 Absolute Eosinophils (0.0 - 0.7 /CUMM) 0.4 0.4 Absolute Basophils (0.0 - 0.2 /CUMM) 0.1 0.1 PUBS MCHC (33.0 - 37.0 G/DL) 33.8 34.0 04/11 04/11 2302 0645 Hematology CBC w Diff NO MAN DIFF REQ NO MAN DIFF REQ WBC (4.8 - 10.8 /CUMM) 7.1 6.4 RBC (4.70 - 6.10 /CUMM) 2.51 L 2.13 L Hgb (14.0 - 18.0 G/DL) 7.4 *L 6.3 *L Hct (42 - 52 %) 22.0 L 18.7 *L MCV (80.0 - 94.0 FL) 87.6 87.4 MCH (27.0 - 31.0 PG) 29.6 29.5 RDW (11.5 - 14.5 %) 17.6 H 18.6 H Plt Count (130 - 400 /CUMM) 240 239 MPV (7.4 - 10.4 FL) 7.6 7.5 Gran % (42.2 - 75.2 %) 63.1 68.3 Lymphocytes % (20.5 - 51.1 %) 22.0 19.2 L Monocytes % (1.7 - 9.3 %) 8.8 7.6 Eosinophils % (0 - 5 %) 5.3 H 4.1 Basophils % (0.0 - 2.0 %) 0.8 0.8 Absolute Granulocytes (1.4 - 6.5 /CUMM) 4.5 4.4 Absolute Lymphocytes (1.2 - 3.4 /CUMM) 1.6 1.2 Absolute Monocytes (0.10 - 0.60 /CUMM) 0.6 0.5 Absolute Eosinophils (0.0 - 0.7 /CUMM) 0.4 0.3 Absolute Basophils (0.0 - 0.2 /CUMM) 0.1 0 PUBS MCHC (33.0 - 37.0 G/DL) 33.8 33.7 1213 04/11 12/12 0630 0032 1900 Chemistry Sodium (137 - 145 mmol/L) 137 Potassium (3.5 - 5.1 mmol/L) 3.8 Chloride (98 - 107 mmol/L) 100 Carbon Dioxide (22 - 30 mmol/L) 27 Anion Gap (5 - 16) 10 BUN (9 - 20 mg/dL) 56 H Creatinine (0.7 - 1.2 mg/dL) 4.5 H Estimated GFR (>60 ml/min) 13 L BUN/Creatinine Ratio (7 - 25 %) 12.4 Hematology CBC w Diff NO MAN DIFF REQ WBC (4.8 - 10.8 /CUMM) 7.5 RBC (4.70 - 6.10 /CUMM) 2.53 L Hgb (14.0 - 18.0 G/DL) 7.3 *L Hct (42 - 52 %) 21.7 L MCV (80.0 - 94.0 FL) 86.0 MCH (27.0 - 31.0 PG) 29.0 RDW (11.5 - 14.5 %) 17.9 H Plt Count (130 - 400 /CUMM) 263 MPV (7.4 - 10.4 FL) 7.2 L Gran % (42.2 - 75.2 %) 66.5 Lymphocytes % (20.5 - 51.1 %) 22.1 Monocytes % (1.7 - 9.3 %) 8.2 Eosinophils % (0 - 5 %) 2.9 Basophils % (0.0 - 2.0 %) 0.3 Absolute Granulocytes (1.4 - 6.5 /CUMM) 5.0 Absolute Lymphocytes (1.2 - 3.4 /CUMM) 1.6 Absolute Monocytes (0.10 - 0.60 /CUMM) 0.6 Absolute Eosinophils (0.0 - 0.7 /CUMM) 0.2 Absolute Basophils (0.0 - 0.2 /CUMM) 0 PUBS MCHC (33.0 - 37.0 G/DL) 33.8 Retic Count (0.5 - 2.0 %) 2.68 H Toxicology Methadone Screen Cancelled Barbiturate Screen Cancelled Ur Phencyclidine Scrn Cancelled Amphetamines Screen Cancelled U Benzodiazepines Scrn Cancelled Urine Cocaine Screen Cancelled Urine Cannabis Screen Cancelled 04/10 04/10 04/10 1610 1515 1515 Chemistry Sodium (137 - 145 mmol/L) 134 L Potassium (3.5 - 5.1 mmol/L) 5.0 Chloride (98 - 107 mmol/L) 96 L Carbon Dioxide (22 - 30 mmol/L) 26 Anion Gap (5 - 16) 12 BUN (9 - 20 mg/dL) 141 *H Creatinine (0.7 - 1.2 mg/dL) 7.4 *H Estimated GFR (>60 ml/min) 8 L BUN/Creatinine Ratio (7 - 25 %) 19.1 Calcium (8.4 - 10.2 mg/dL) 7.5 L Phosphorus (2.5 - 4.5 mg/dL) 3.1 Magnesium (1.6 - 2.3 mg/dL) 1.7 Iron (49 - 181 ug/dL) 175 TIBC (261 - 462 ug/dL) 196 L Ferritin (17.9 - 464 ng/mL) 650.0 H Lactate Dehydrogenase (313 - 618 U/L) 395 LD Total Cancelled LD 1 Cancelled LD 2 Cancelled LD 3 Cancelled LD 4 Cancelled LD 5 Cancelled LD 1:LD 2 Ratio Cancelled Albumin (3.5 - 5.0 g/dL) 2.9 L Hematology CBC w Diff NO MAN DIFF REQ WBC (4.8 - 10.8 /CUMM) 7.5 RBC (4.70 - 6.10 /CUMM) 2.04 L Hgb (14.0 - 18.0 G/DL) 5.9 *L Hct (42 - 52 %) 17.8 *L MCV (80.0 - 94.0 FL) 87.0 MCH (27.0 - 31.0 PG) 28.9 RDW (11.5 - 14.5 %) 18.1 H Plt Count (130 - 400 /CUMM) 254 MPV (7.4 - 10.4 FL) 7.4 Gran % (42.2 - 75.2 %) 66.6 Lymphocytes % (20.5 - 51.1 %) 20.4 L Monocytes % (1.7 - 9.3 %) 8.8 Eosinophils % (0 - 5 %) 3.2 Basophils % (0.0 - 2.0 %) 1.0 Absolute Granulocytes (1.4 - 6.5 /CUMM) 5.0 Absolute Lymphocytes (1.2 - 3.4 /CUMM) 1.5 Absolute Monocytes (0.10 - 0.60 /CUMM) 0.7 H Absolute Eosinophils (0.0 - 0.7 /CUMM) 0.2 Absolute Basophils (0.0 - 0.2 /CUMM) 0.1 PUBS MCHC (33.0 - 37.0 G/DL) 33.2 Retic Count Cancelled Haptoglobin Pending 04/10 04/10 04/10 1500 1442 UNK Chemistry Sodium Cancelled Potassium Cancelled Chloride Cancelled Carbon Dioxide Cancelled Anion Gap Cancelled BUN Cancelled Creatinine Cancelled BUN/Creatinine Ratio Cancelled Phosphorus Cancelled Albumin Cancelled Hematology CBC w Diff NO MAN DIFF REQ WBC (4.8 - 10.8 /CUMM) 8.3 RBC (4.70 - 6.10 /CUMM) 2.18 L Hgb (14.0 - 18.0 G/DL) 6.4 *L Hct (42 - 52 %) 19.0 *L MCV (80.0 - 94.0 FL) 87.3 MCH (27.0 - 31.0 PG) 29.5 RDW (11.5 - 14.5 %) 18.5 H Plt Count (130 - 400 /CUMM) 251 MPV (7.4 - 10.4 FL) 7.0 L Gran % (42.2 - 75.2 %) 66.2 Lymphocytes % (20.5 - 51.1 %) 20.5 Monocytes % (1.7 - 9.3 %) 9.4 H Eosinophils % (0 - 5 %) 3.1 Basophils % (0.0 - 2.0 %) 0.8 Absolute Granulocytes (1.4 - 6.5 /CUMM) 5.5 Absolute Lymphocytes (1.2 - 3.4 /CUMM) 1.7 Absolute Monocytes (0.10 - 0.60 /CUMM) 0.8 H Absolute Eosinophils (0.0 - 0.7 /CUMM) 0.3 Absolute Basophils (0.0 - 0.2 /CUMM) 0.1 PUBS MCHC (33.0 - 37.0 G/DL) 33.8 04/10 04/10 04/10 0913 0700 0652 Chemistry Sodium (137 - 145 mmol/L) 135 L Potassium (3.5 - 5.1 mmol/L) 4.6 Chloride (98 - 107 mmol/L) 98 Carbon Dioxide (22 - 30 mmol/L) 22 Anion Gap (5 - 16) 15 BUN (9 - 20 mg/dL) 124 *H Creatinine (0.7 - 1.2 mg/dL) 6.8 *H Estimated GFR (>60 ml/min) 8 L BUN/Creatinine Ratio (7 - 25 %) 18.2 Troponin I (<0.11 ng/ml) Cancelled 0.02 Hematology CBC w Diff NO MAN DIFF REQ WBC (4.8 - 10.8 /CUMM) 7.1 RBC (4.70 - 6.10 /CUMM) 2.10 L Hgb (14.0 - 18.0 G/DL) 6.3 *L Hct (42 - 52 %) 18.1 *L MCV (80.0 - 94.0 FL) 86.7 MCH (27.0 - 31.0 PG) 29.9 RDW (11.5 - 14.5 %) 20.1 H Plt Count (130 - 400 /CUMM) 282 MPV (7.4 - 10.4 FL) 7.1 L Gran % (42.2 - 75.2 %) 66.5 Lymphocytes % (20.5 - 51.1 %) 20.9 Monocytes % (1.7 - 9.3 %) 7.6 Eosinophils % (0 - 5 %) 4.2 Basophils % (0.0 - 2.0 %) 0.8 Absolute Granulocytes (1.4 - 6.5 /CUMM) 4.7 Absolute Lymphocytes (1.2 - 3.4 /CUMM) 1.5 Absolute Monocytes (0.10 - 0.60 /CUMM) 0.5 Absolute Eosinophils (0.0 - 0.7 /CUMM) 0.3 Absolute Basophils (0.0 - 0.2 /CUMM) 0.1 PUBS MCHC (33.0 - 37.0 G/DL) 34.5 04/10 Chemistry Sodium (137 - 145 mmol/L) 135 L Potassium (3.5 - 5.1 mmol/L) 4.5 Chloride (98 - 107 mmol/L) 98 Carbon Dioxide (22 - 30 mmol/L) 24 Anion Gap (5 - 16) 13 BUN (9 - 20 mg/dL) 94 H Creatinine (0.7 - 1.2 mg/dL) 5.8 *H Estimated GFR (>60 ml/min) 10 L BUN/Creatinine Ratio (7 - 25 %) 16.2 Glucose (65 - 99 mg/dL) 91 Calcium (8.4 - 10.2 mg/dL) 8.1 L Total Bilirubin (0.2 - 1.3 mg/dL) 0.5 AST (17 - 59 U/L) 23 ALT (21 - 72 U/L) 27 Alkaline Phosphatase (< 127 U/L) 182 H Troponin I (<0.11 ng/ml) 0.03 0.03 Total Protein (6.3 - 8.2 g/dL) 5.2 L Albumin (3.5 - 5.0 g/dL) 2.8 L Globulin (1.9 - 4.2 gm/dL) 2.4 Albumin/Globulin Ratio (1.1 - 2.2 %) 1.2 Hematology CBC w Diff NO MAN DIFF REQ WBC (4.8 - 10.8 /CUMM) 8.7 RBC (4.70 - 6.10 /CUMM) 1.75 L Hgb (14.0 - 18.0 G/DL) 5.5 *L Hct (42 - 52 %) 16.1 *L MCV (80.0 - 94.0 FL) 91.8 MCH (27.0 - 31.0 PG) 31.2 H RDW (11.5 - 14.5 %) 20.0 H Plt Count (130 - 400 /CUMM) 315 MPV (7.4 - 10.4 FL) 7.7 Gran % (42.2 - 75.2 %) 68.0 Lymphocytes % (20.5 - 51.1 %) 19.1 L Monocytes % (1.7 - 9.3 %) 8.1 Eosinophils % (0 - 5 %) 4.4 Basophils % (0.0 - 2.0 %) 0.4 Absolute Granulocytes (1.4 - 6.5 /CUMM) 5.9 Absolute Lymphocytes (1.2 - 3.4 /CUMM) 1.7 Absolute Monocytes (0.10 - 0.60 /CUMM) 0.7 H Absolute Eosinophils (0.0 - 0.7 /CUMM) 0.4 Absolute Basophils (0.0 - 0.2 /CUMM) 0 PUBS MCHC (33.0 - 37.0 G/DL) 34.0
[2017-04-12 14:53] VITALS: BP 114/46
--- NOTE | 2017-04-12 19:53 | PN- Cardiology ---
Subjective Subjective: * Patient is feeling improved and is more lucid s/p dialysis today. * Patient remains anemic * mild hypothyroidism noted. Objective Vital Signs and I&Os Vital Signs Date Time Temp Pulse Resp B/P B/P Pulse O2 O2 Flow FiO2 Mean Ox Delivery Rate 04/12 1453 98.3 94 20 114/46 97 Room Air 04/12 1426 80 114/70 04/12 1425 80 114/70 04/12 1416 80 114/70 04/12 0629 97.3 78 20 120/70 96 Room Air 04/11 2327 98.2 75 16 118/72 96 Nasal Cannula 04/11 2153 84 138/88 04/11 2153 84 138/88 04/11 2153 84 13888 Intake & Output 04/12 1600 04/12 0800 04/12 0000 04/11 1600 04/11 0800 04/11 0000 Intake Total 3280 660 600 250 300 Output Total 0 0 Balance 3280 660 600 250 300 Intake, Blood 300 Product Intake, 3000 Dialysate Intake, IV 30 Intake, Oral 250 360 600 250 300 Number 0 0 Bowel Movements Output, Urine 0 0 Patient 207 lb 207 lb Weight Physical Exam: General: WD/WN male in NAD; awake and slow to respond HEENT: NC/AT, PERRL, EOMI Neck: no JVD, no carotid bruit Heart: RRR with 2/6 systolic murmur Lungs: clear bilaterally ABdomen: soft, NT, +ve bowel sounds Extremities: no edema, left arm fistula Assessment/Plan Assessment/Plan * This patient was recently seen in the office on April 06 and was doing well. He is now status post two cardiac catheterizations showing clear coronaries. He has not received any stent. His shortness of breath is improved to normal. His tachycardia that was noted upon admission which I would attribute to his anemia has resolved. * The patient's anemia is likely multifactorial and due to decreased production in the setting of renal failure and active GI bleeding. He is on Epogen. Agree with transfusion for now. Would ask GI to continue their evaluation. Continue telemetry? Yes
[2017-04-12 21:07] LABS: ABSOLUTE BASOPHIL COUNT 0 /CUMM (0.0-0.2); ABSOLUTE EOSINOPHIL COUNT 0.3 /CUMM (0.0-0.7); ABSOLUTE GRANULOCYTE CT 6.1 /CUMM (1.4-6.5); ABSOLUTE LYMPH COUNT 1.5 /CUMM (1.2-3.4); ABSOLUTE MONOCYTE COUNT 0.7 /CUMM (0.10-0.60); BASOPHIL % 0.6 % (0.0-2.0); EOSINOPHIL % 3.6 % (0-5); GRANULOCYTE % 70.4 % (42.2-75.2); HEMATOCRIT 24.9 % (42-52); MEAN CORPUSCULAR HGB 29.6 PG (27.0-31.0); MEAN CORPUSCULAR HGB CONC 33.2 G/DL (33.0-37.0); MEAN CORPUSCULAR VOLUME 89.1 FL (80.0-94.0); PLATELET COUNT 297 /CUMM (130-400); RBC DISTRIBUTION WIDTH 18.5 % (11.5-14.5); WHITE BLOOD CELL COUNT 8.6 /CUMM (4.8-10.8)
[2017-04-12 22:08] VITALS: BP 130/70
[2017-04-13 06:43] VITALS: BP 122/66
--- NOTE | 2017-04-13 07:38 | PN- Housestaff ---
Subjective Follow-up For: Symptomatic anemia Atypical chest pain End-stage renal disease on dialysis. Tele-Events Since Last Visit: No overnight events. Patient remained in sinus rhythm with heart rate 76-83 Subjective: No overnight events patient remained afebrile overnight. Patient seen and examined this morning on bedside. Patient denied any chest pain, short of breath, nausea, vomiting, abdominal pain dysuria. Patient reported that his exertional dyspnea has improved. Patient reported to black stools yesterday. No fresh blood in the stool. He denied any hematemesis. Review of Systems Constitutional: Reports: no symptoms. EENTM: Reports: no symptoms. Cardiovascular: Reports: no symptoms. Respiratory: Reports: no symptoms. Gastrointestinal: Reports: see HPI. Genitourinary: Reports: no symptoms. Neurological/Psychological: Reports: no symptoms. Objective Last 24 Hrs of Vital Signs/I&O Vital Signs Date Time Temp Pulse Resp B/P B/P Pulse O2 O2 Flow FiO2 Mean Ox Delivery Rate 04/13 0848 Room Air Room Air 04/13 0833 76 122/66 04/13 0801 76 122/66 04/13 0800 76 122/66 04/13 0643 98.8 76 18 122/66 95 Room Air 04/12 2208 98.8 87 20 130/70 96 Room Air 04/12 2109 87 130/70 04/12 2105 87 130/70 04/12 2105 87 130/70 04/12 1453 98.3 94 20 114/46 97 Room Air 04/12 1426 80 114/70 04/12 1425 80 114/70 04/12 1416 80 114/70 Intake & Output 04/13 1600 04/13 0800 04/13 0000 Intake Total 120 130 Output Total 0 Balance 120 130 Intake, IV 10 Intake, Oral 120 120 Number 0 0 Bowel Movements Output, Urine 0 Physical Exam General Appearance: Alert, Oriented X3, Cooperative, No Acute Distress Skin Temp/Moisture Exam: Warm/Dry HEENT: Atraumatic, PERRLA, EOMI Neck: Supple Cardiovascular: Normal S1, Normal S2 Lungs: Clear to Auscultation Abdomen: Soft, No Tenderness Neurological: Normal Speech, Strength at 5/5 X4 Ext, Normal Tone, Sensation Intact Extremities: No Edema Assessment/Plan Assessment: 61 yo M active smoker with pmhx of ESRD on dialysis, HFrEF (EF 45-50% on ) hypertension, hyperlipidemia, bipolar disorder, asthma, COPD, seizure history, depression, recently went into cardiac arrest on the [facility] Manager for stent placement presenting for shortness of breath found to have anemia with guaiac positive stool. Symptomatic anemia: -Patient came in with an H&H 5.5/16.1 and having exertional dyspnea and atypical chest pain. -Plan to give the patient blood transfusion. He received 3 blood transfusion in ED -We will keep the hemoglobin more than 8 considering patient's significant cardiac history in the past. -We will check the CBCs for H&H after blood transfusion. -We will get the GI consultation to rule out any active bleeding in GI tract as patient having history of black stools. -We will monitor the patient's if he become unstable hemodynamically we will give patient blood transfusion or call GI. -IV Protonix -No NSAIDs -We'll follow the GI recommendations and we will try to get any records related to an endoscopy or colonoscopy in the past.(04/11/17) -Yesterday patient received 2 blood transfusions and last night his hemoglobin was 7.4. -Haemoglobin is stable above 8. patient will get dialysis tomorrow.() Atypical chest pain: -We will do serial EKGs and troponins to rule out any ischemic cardiac injury considering patient's significant past medical history of cardiac ischemia. -The got the records from [facility] yesterday. They mentioned that patient got the cardiac cath but during the cardiac cath he went to cardiogenic shock. They mentioned that vessels were clear.(04/11/17) -Angiography was done in February 2017 that showed normal coronary vessels. Left heart ejection fraction 40%. In record they also mention about takotsubo cardiomyopathy. patient also having wall motion abnormalities of anterolateral and apical.(04/11/17) -We will follow the cardiology recommendations. -Echocardiogram History of end-stage renal disease on dialysis: -We will get the nephrology consult -Patient having AV fistula on left arm -patient is getting dialysis on sunday, and sunday. -We will check the creatinine and BUN we will follow the BEP. -We will continue the Nephro-Tara, Savelamer, sensipar and procrit injection -Patient got the dialysis yesterday and his hemoglobin improved to 7.3 but this morning it's again 6.4. Patient will be kept low-sodium diet 2 g and 2 g potassium with water restriction to 1200ml.(04/11/17) -Patient will go for dialysis today.(04/12/17) History of bipolar disorder: We'll continue the benztropine, aripiprazole and seroquel. We will follow the psychiatry recommendations. History of CHF with systolic dysfunction, hyperlipidemia and hypertension: -To continue the Lasix and aspirin -We will continue propranolol labetalol and hydralazine for hypertension. -Continue Lipitor for hyperlipidemia History of seizures: -We will continue oxcarbazpine and lamotrigine DVT prophylaxis: Mechanical and subcutaneous heparin CODE STATUS: Full code Problem List: 1. Atypical chest pain 2. Symptomatic anemia 3. ESRD (end stage renal disease) on dialysis Pain Ratin Pain Location: none Pain Goal: Remain pain free Pain Plan: tylenol for mild pain Tomorrow's Labs & Rationales: cbc/bep
[2017-04-13 08:16] LABS: ABSOLUTE BASOPHIL COUNT 0.1 /CUMM (0.0-0.2); ABSOLUTE EOSINOPHIL COUNT 0.3 /CUMM (0.0-0.7); ABSOLUTE GRANULOCYTE CT 5.5 /CUMM (1.4-6.5); ABSOLUTE LYMPH COUNT 1.5 /CUMM (1.2-3.4); ABSOLUTE MONOCYTE COUNT 0.6 /CUMM (0.10-0.60); BASOPHIL % 0.7 % (0.0-2.0); EOSINOPHIL % 4.3 % (0-5); GRANULOCYTE % 68.3 % (42.2-75.2); HEMATOCRIT 24.2 % (42-52); MEAN CORPUSCULAR HGB 30.1 PG (27.0-31.0); MEAN CORPUSCULAR HGB CONC 33.4 G/DL (33.0-37.0); MEAN CORPUSCULAR VOLUME 90.1 FL (80.0-94.0); MEAN PLATELET VOLUME 7.6 FL (7.4-10.4); PLATELET COUNT 291 /CUMM (130-400); RBC DISTRIBUTION WIDTH 18.7 % (11.5-14.5); RED BLOOD CELL CT 2.69 /CUMM (4.70-6.10); WHITE BLOOD CELL COUNT 8.1 /CUMM (4.8-10.8)
--- NOTE | 2017-04-13 12:14 | PN- Nephrology ---
Assessment/Plan Assessment: 1. ESRD 2. Severe symptomatic anemia requiring repeated packed RBC transfusions. No evidence for active bleeding at this time and hemoglobin seems to have stabilized above 8.0 3. Bipolar disorder 4. History of chronic noncompliance Suggestion: 1. Continue to monitor vital signs and hemoglobin closely with further transfusions as needed 2. GI follow-up 3. Hemodialysis tomorrow - I will arrange Subjective Subjective: Patient feels well and denies any nausea, vomiting, diarrhea, hematemesis, bright red blood per rectum, black stools, chest pain or shortness of breath. Hemoglobin seems to have stabilized above 8.0. Objective Vital Signs and I&Os Vital Signs Date Time Temp Pulse Resp B/P B/P Pulse O2 O2 Flow FiO2 Mean Ox Delivery Rate 04/13 0959 Room Air Room Air 04/13 0953 Room Air Room Air 04/13 0848 Room Air Room Air 04/13 0833 76 122/66 04/13 0801 76 122/66 04/13 0800 76 122/66 04/13 0643 98.8 76 18 122/66 95 Room Air 04/12 2208 98.8 87 20 130/70 96 Room Air 04/12 2109 87 130/70 04/12 2105 87 130/70 04/12 2105 87 130/70 04/12 1453 98.3 94 20 114/46 97 Room Air 04/12 1426 80 114/70 04/12 1425 80 114/70 04/12 1416 80 114/70 Intake & Output 04/13 1600 04/13 0400 04/12 1600 04/12 0400 04/11 1600 04/11 0400 Intake Total 503 558 4688 660 850 300 Output Total 0 0 0 Balance 005 724 7803 660 850 300 Intake, Blood 300 Product Intake, 3000 Dialysate Intake, IV 10 30 Intake, Oral 120 120 250 360 850 300 Number 0 0 0 0 Bowel Movements Output, Urine 0 0 0 Patient 207 lb Weight Physical Exam: General: Well-developed white male in no acute distress Skin: No rash or jaundice HEENT: Conjunctivae pale, sclerae anicteric, mucous membranes moist Neck: Without masses or thyromegaly, no supraclavicular or cervical adenopathy Chest: Clear to P & A Heart: Regular rate and rhythm without S3 or rub Abdomen: Obese, soft and nontender without palpable masses or organomegaly Extremities: Without cyanosis or edema, left lower arm AVF patent Neuro: No focal findings, no asterixis or myoclonus Results Pertinent Lab Results: Laboratory Tests 04/13 04/12 0716 2050 Chemistry Sodium (137 - 145 mmol/L) 142 Potassium (3.5 - 5.1 mmol/L) 3.9 Chloride (98 - 107 mmol/L) 104 Carbon Dioxide (22 - 30 mmol/L) 27 Anion Gap (5 - 16) 11 BUN (9 - 20 mg/dL) 33 H Creatinine (0.7 - 1.2 mg/dL) 5.5 *H Estimated GFR (>60 ml/min) 11 L BUN/Creatinine Ratio (7 - 25 %) 6.0 L Hematology CBC w Diff NO MAN DIFF REQ NO MAN DIFF REQ WBC (4.8 - 10.8 /CUMM) 8.1 8.6 RBC (4.70 - 6.10 /CUMM) 2.69 L 2.80 L Hgb (14.0 - 18.0 G/DL) 8.1 L 8.3 L Hct (42 - 52 %) 24.2 L 24.9 L MCV (80.0 - 94.0 FL) 90.1 89.1 MCH (27.0 - 31.0 PG) 30.1 29.6 RDW (11.5 - 14.5 %) 18.7 H 18.5 H Plt Count (130 - 400 /CUMM) 291 297 MPV (7.4 - 10.4 FL) 7.6 7.0 L Gran % (42.2 - 75.2 %) 68.3 70.4 Lymphocytes % (20.5 - 51.1 %) 19.1 L 16.9 L Monocytes % (1.7 - 9.3 %) 7.6 8.5 Eosinophils % (0 - 5 %) 4.3 3.6 Basophils % (0.0 - 2.0 %) 0.7 0.6 Absolute Granulocytes (1.4 - 6.5 /CUMM) 5.5 6.1 Absolute Lymphocytes (1.2 - 3.4 /CUMM) 1.5 1.5 Absolute Monocytes (0.10 - 0.60 /CUMM) 0.6 0.7 H Absolute Eosinophils (0.0 - 0.7 /CUMM) 0.3 0.3 Absolute Basophils (0.0 - 0.2 /CUMM) 0.1 0 PUBS MCHC (33.0 - 37.0 G/DL) 33.4 33.2 04/12 04/12 1240 0840 Chemistry Sodium (137 - 145 mmol/L) 139 Potassium (3.5 - 5.1 mmol/L) 4.3 Chloride (98 - 107 mmol/L) 101 Carbon Dioxide (22 - 30 mmol/L) 26 Anion Gap (5 - 16) 11 BUN (9 - 20 mg/dL) 18 72 H Creatinine (0.7 - 1.2 mg/dL) 7.0 *H Estimated GFR (>60 ml/min) 8 L BUN/Creatinine Ratio (7 - 25 %) 10.3 Calcium (8.4 - 10.2 mg/dL) 7.9 L Phosphorus (2.5 - 4.5 mg/dL) 3.6 Magnesium (1.6 - 2.3 mg/dL) 2.0 Albumin (3.5 - 5.0 g/dL) 2.8 L Hematology CBC w Diff NO MAN DIFF REQ WBC (4.8 - 10.8 /CUMM) 6.8 RBC (4.70 - 6.10 /CUMM) 2.55 L Hgb (14.0 - 18.0 G/DL) 7.6 L Hct (42 - 52 %) 22.4 L MCV (80.0 - 94.0 FL) 88.0 MCH (27.0 - 31.0 PG) 29.8 RDW (11.5 - 14.5 %) 17.7 H Plt Count (130 - 400 /CUMM) 235 MPV (7.4 - 10.4 FL) 7.6 Gran % (42.2 - 75.2 %) 66.2 Lymphocytes % (20.5 - 51.1 %) 18.8 L Monocytes % (1.7 - 9.3 %) 8.5 Eosinophils % (0 - 5 %) 5.4 H Basophils % (0.0 - 2.0 %) 1.1 Absolute Granulocytes (1.4 - 6.5 /CUMM) 4.5 Absolute Lymphocytes (1.2 - 3.4 /CUMM) 1.3 Absolute Monocytes (0.10 - 0.60 /CUMM) 0.6 Absolute Eosinophils (0.0 - 0.7 /CUMM) 0.4 Absolute Basophils (0.0 - 0.2 /CUMM) 0.1 PUBS MCHC (33.0 - 37.0 G/DL) 33.8 04/12 04/11 0634 2302 Chemistry Sodium (137 - 145 mmol/L) 140 Potassium (3.5 - 5.1 mmol/L) 4.1 Chloride (98 - 107 mmol/L) 101 Carbon Dioxide (22 - 30 mmol/L) 26 Anion Gap (5 - 16) 13 BUN (9 - 20 mg/dL) 70 H Creatinine (0.7 - 1.2 mg/dL) 6.9 *H Estimated GFR (>60 ml/min) 8 L BUN/Creatinine Ratio (7 - 25 %) 10.1 Hematology CBC w Diff NO MAN DIFF REQ NO MAN DIFF REQ WBC (4.8 - 10.8 /CUMM) 7.0 7.1 RBC (4.70 - 6.10 /CUMM) 2.53 L 2.51 L Hgb (14.0 - 18.0 G/DL) 7.6 L 7.4 *L Hct (42 - 52 %) 22.4 L 22.0 L MCV (80.0 - 94.0 FL) 88.7 87.6 MCH (27.0 - 31.0 PG) 30.1 29.6 RDW (11.5 - 14.5 %) 18.3 H 17.6 H Plt Count (130 - 400 /CUMM) 233 240 MPV (7.4 - 10.4 FL) 7.4 7.6 Gran % (42.2 - 75.2 %) 64.6 63.1 Lymphocytes % (20.5 - 51.1 %) 20.2 L 22.0 Monocytes % (1.7 - 9.3 %) 8.9 8.8 Eosinophils % (0 - 5 %) 5.5 H 5.3 H Basophils % (0.0 - 2.0 %) 0.8 0.8 Absolute Granulocytes (1.4 - 6.5 /CUMM) 4.5 4.5 Absolute Lymphocytes (1.2 - 3.4 /CUMM) 1.4 1.6 Absolute Monocytes (0.10 - 0.60 /CUMM) 0.6 0.6 Absolute Eosinophils (0.0 - 0.7 /CUMM) 0.4 0.4 Absolute Basophils (0.0 - 0.2 /CUMM) 0.1 0.1 PUBS MCHC (33.0 - 37.0 G/DL) 34.0 33.8 04/11 04/11 04/11 6245 0652 0032 Chemistry Sodium (137 - 145 mmol/L) 137 Potassium (3.5 - 5.1 mmol/L) 3.8 Chloride (98 - 107 mmol/L) 100 Carbon Dioxide (22 - 30 mmol/L) 27 Anion Gap (5 - 16) 10 BUN (9 - 20 mg/dL) 56 H Creatinine (0.7 - 1.2 mg/dL) 4.5 H Estimated GFR (>60 ml/min) 13 L BUN/Creatinine Ratio (7 - 25 %) 12.4 Hematology CBC w Diff NO MAN DIFF REQ WBC (4.8 - 10.8 /CUMM) 6.4 RBC (4.70 - 6.10 /CUMM) 2.13 L Hgb (14.0 - 18.0 G/DL) 6.3 *L Hct (42 - 52 %) 18.7 *L MCV (80.0 - 94.0 FL) 87.4 MCH (27.0 - 31.0 PG) 29.5 RDW (11.5 - 14.5 %) 18.6 H Plt Count (130 - 400 /CUMM) 239 MPV (7.4 - 10.4 FL) 7.5 Gran % (42.2 - 75.2 %) 68.3 Lymphocytes % (20.5 - 51.1 %) 19.2 L Monocytes % (1.7 - 9.3 %) 7.6 Eosinophils % (0 - 5 %) 4.1 Basophils % (0.0 - 2.0 %) 0.8 Absolute Granulocytes (1.4 - 6.5 /CUMM) 4.4 Absolute Lymphocytes (1.2 - 3.4 /CUMM) 1.2 Absolute Monocytes (0.10 - 0.60 /CUMM) 0.5 Absolute Eosinophils (0.0 - 0.7 /CUMM) 0.3 Absolute Basophils (0.0 - 0.2 /CUMM) 0 PUBS MCHC (33.0 - 37.0 G/DL) 33.7 Toxicology Methadone Screen Cancelled Barbiturate Screen Cancelled Ur Phencyclidine Scrn Cancelled Amphetamines Screen Cancelled U Benzodiazepines Scrn Cancelled Urine Cocaine Screen Cancelled Urine Cannabis Screen Cancelled 04/10 04/10 04/10 1900 1610 1515 Chemistry LD Total Cancelled LD 1 Cancelled LD 2 Cancelled LD 3 Cancelled LD 4 Cancelled LD 5 Cancelled LD 1:LD 2 Ratio Cancelled Hematology CBC w Diff NO MAN DIFF REQ WBC (4.8 - 10.8 /CUMM) 7.5 RBC (4.70 - 6.10 /CUMM) 2.53 L Hgb (14.0 - 18.0 G/DL) 7.3 *L Hct (42 - 52 %) 21.7 L MCV (80.0 - 94.0 FL) 86.0 MCH (27.0 - 31.0 PG) 29.0 RDW (11.5 - 14.5 %) 17.9 H Plt Count (130 - 400 /CUMM) 263 MPV (7.4 - 10.4 FL) 7.2 L Gran % (42.2 - 75.2 %) 66.5 Lymphocytes % (20.5 - 51.1 %) 22.1 Monocytes % (1.7 - 9.3 %) 8.2 Eosinophils % (0 - 5 %) 2.9 Basophils % (0.0 - 2.0 %) 0.3 Absolute Granulocytes (1.4 - 6.5 /CUMM) 5.0 Absolute Lymphocytes (1.2 - 3.4 /CUMM) 1.6 Absolute Monocytes (0.10 - 0.60 /CUMM) 0.6 Absolute Eosinophils (0.0 - 0.7 /CUMM) 0.2 Absolute Basophils (0.0 - 0.2 /CUMM) 0 PUBS MCHC (33.0 - 37.0 G/DL) 33.8 Retic Count (0.5 - 2.0 %) 2.68 H Cancelled Haptoglobin (43 - 212 mg/dL) 140 04/10 04/10 1515 1500 Chemistry Sodium (137 - 145 mmol/L) 134 L Cancelled Potassium (3.5 - 5.1 mmol/L) 5.0 Cancelled Chloride (98 - 107 mmol/L) 96 L Cancelled Carbon Dioxide (22 - 30 mmol/L) 26 Cancelled Anion Gap (5 - 16) 12 Cancelled BUN (9 - 20 mg/dL) 141 *H Cancelled Creatinine (0.7 - 1.2 mg/dL) 7.4 *H Cancelled Estimated GFR (>60 ml/min) 8 L BUN/Creatinine Ratio (7 - 25 %) 19.1 Cancelled Calcium (8.4 - 10.2 mg/dL) 7.5 L Phosphorus (2.5 - 4.5 mg/dL) 3.1 Cancelled Magnesium (1.6 - 2.3 mg/dL) 1.7 Iron (49 - 181 ug/dL) 175 TIBC (261 - 462 ug/dL) 196 L Ferritin (17.9 - 464 ng/mL) 650.0 H Lactate Dehydrogenase (313 - 618 U/L) 395 Albumin (3.5 - 5.0 g/dL) 2.9 L Hematology CBC w Diff NO MAN DIFF REQ WBC (4.8 - 10.8 /CUMM) 7.5 RBC (4.70 - 6.10 /CUMM) 2.04 L Hgb (14.0 - 18.0 G/DL) 5.9 *L Hct (42 - 52 %) 17.8 *L MCV (80.0 - 94.0 FL) 87.0 MCH (27.0 - 31.0 PG) 28.9 RDW (11.5 - 14.5 %) 18.1 H Plt Count (130 - 400 /CUMM) 254 MPV (7.4 - 10.4 FL) 7.4 Gran % (42.2 - 75.2 %) 66.6 Lymphocytes % (20.5 - 51.1 %) 20.4 L Monocytes % (1.7 - 9.3 %) 8.8 Eosinophils % (0 - 5 %) 3.2 Basophils % (0.0 - 2.0 %) 1.0 Absolute Granulocytes (1.4 - 6.5 /CUMM) 5.0 Absolute Lymphocytes (1.2 - 3.4 /CUMM) 1.5 Absolute Monocytes (0.10 - 0.60 /CUMM) 0.7 H Absolute Eosinophils (0.0 - 0.7 /CUMM) 0.2 Absolute Basophils (0.0 - 0.2 /CUMM) 0.1 PUBS MCHC (33.0 - 37.0 G/DL) 33.2 04/10 1442 Hematology CBC w Diff NO MAN DIFF REQ WBC (4.8 - 10.8 /CUMM) 8.3 RBC (4.70 - 6.10 /CUMM) 2.18 L Hgb (14.0 - 18.0 G/DL) 6.4 *L Hct (42 - 52 %) 19.0 *L MCV (80.0 - 94.0 FL) 87.3 MCH (27.0 - 31.0 PG) 29.5 RDW (11.5 - 14.5 %) 18.5 H Plt Count (130 - 400 /CUMM) 251 MPV (7.4 - 10.4 FL) 7.0 L Gran % (42.2 - 75.2 %) 66.2 Lymphocytes % (20.5 - 51.1 %) 20.5 Monocytes % (1.7 - 9.3 %) 9.4 H Eosinophils % (0 - 5 %) 3.1 Basophils % (0.0 - 2.0 %) 0.8 Absolute Granulocytes (1.4 - 6.5 /CUMM) 5.5 Absolute Lymphocytes (1.2 - 3.4 /CUMM) 1.7 Absolute Monocytes (0.10 - 0.60 /CUMM) 0.8 H Absolute Eosinophils (0.0 - 0.7 /CUMM) 0.3 Absolute Basophils (0.0 - 0.2 /CUMM) 0.1 PUBS MCHC (33.0 - 37.0 G/DL) 33.8
--- NOTE | 2017-04-13 13:17 | PN- Att Addend ---
Attending Addendum Attending Brief Note Patient in bed in no distress. No obvious bleeding. Vital signs are stable hemoglobin and hematocrit still low. We'll continue observation, continue hemodialysis while in the hospital, follow-up labs closely. relocation services specialist working on disposition plans Current Medications Sig/Grace Start time Last Medication Dose Route Stop Time Status Admin Acetaminophen 325 MG Q6-PRN PRN 04/09 2245 AC 04/10 PO 0239 Albuterol Sulfate 2 PUF Q4P PRN 04/09 2300 AC INH Aspirin Buffered 81 MG 0800 04/10 0800 AC 04/13 PO 0800 Atorvastatin Calcium 40 MG 1700 04/10 1700 AC 04/12 PO 1812 Benztropine Mesylate 0.5 MG BID 04/10 1000 AC 04/13 PO 0802 Cinacalcet 30 MG DAILY 04/10 1000 AC 04/13 PO 0800 Epoetin Florentino 8,000 UNIT TUES THURS SAT PRN 04/10 1500 AC IV Furosemide 80 MG 0800,2200 04/10 0800 AC 04/13 PO 0759 Gabapentin 300 MG AT BEDTIME 04/10 0215 AC 04/12 PO 2105 Hydralazine HCl 20 MG BID 04/10 1000 AC 04/13 PO 0801 Labetalol HCl 100 MG BID 04/10 1000 AC 04/13 PO 0800 Lamotrigine 150 MG DAILY 04/10 1000 AC 04/13 PO 0757 Lorazepam 0 Q1P PRN 04/11 0045 AC IV Multivitamins 1 TAB 1000 04/10 1000 AC 04/13 PO 0801 Oxcarbazepine 600 MG BID 04/10 1000 AC 04/13 PO 0802 Pantoprazole Sodium 40 MG DAILY 04/10 1000 AC 04/13 IV 0801 Propranolol HCl 10 MG BID 04/10 1000 AC 04/13 PO 0833 Quetiapine Fumarate 400 MG AT BEDTIME 04/10 0215 AC 04/12 PO 2105 Sevelamer Carbonate 2,400 MG TIDAC 04/10 0800 AC 04/13 PO 1221 Tiotropium [place] 1 PUF DAILY 04/10 1000 AC 04/13 INH 0803 Laboratory Tests 04/13/17 0716: Anion Gap 11, Estimated GFR 11 L, BUN/Creatinine Ratio 6.0 L, CBC w Diff NO MAN DIFF REQ, RBC 2.69 L, MCV 90.1, MCH 30.1, RDW 18.7 H, MPV 7.6, Gran % 68.3 , Lymphocytes % 19.1 L, Monocytes % 7.6, Eosinophils % 4.3, Basophils % 0.7, Absolute Granulocytes 5.5, Absolute Lymphocytes 1.5, Absolute Monocytes 0.6, Absolute Eosinophils 0.3, Absolute Basophils 0.1, [facility] MCH[facility] 33.4 04/12/17 2050: CBC w Diff NO MAN DIFF REQ, RBC 2.80 L, MCV 89.1, MCH 29.6, RDW 18.5 H, MPV 7.0 L, Gran % 70.4, Lymphocytes % 16.9 L, Monocytes % 8.5, Eosinophils % 3.6, Basophils % 0.6, Absolute Granulocytes 6.1, Absolute Lymphocytes 1.5, Absolute Monocytes 0.7 H, Absolute Eosinophils 0.3, Absolute Basophils 0, [facility] 33.2 04/12/17 1240: 04/12/17 0840: Anion Gap 11, Estimated GFR 8 L, BUN/Creatinine Ratio 10.3, Calcium 7.9 L, Phosphorus 3.6, Magnesium 2.0, Albumin 2.8 L, CBC w Diff NO MAN DIFF REQ, RBC 2.55 L, MCV 88.0, MCH 29.8, RDW 17.7 H, MPV 7.6, Gran % 66.2, Lymphocytes % 18.8 L, Monocytes % 8.5, Eosinophils % 5.4 H, Basophils % 1.1, Absolute Granulocytes 4.5, Absolute Lymphocytes 1.3, Absolute Monocytes 0.6, Absolute Eosinophils 0.4, Absolute Basophils 0.1, [facility] MCHC 33.8 04/12/17 0634: Anion Gap 13, Estimated GFR 8 L, BUN/Creatinine Ratio 10.1, CBC w Diff NO MAN DIFF REQ, RBC 2.53 L, MCV 88.7, MCH 30.1, RDW 18.3 H, MPV 7.4, Gran % 64.6, Lymphocytes % 20.2 L, Monocytes % 8.9, Eosinophils % 5.5 H, Basophils % 0.8, Absolute Granulocytes 4.5, Absolute Lymphocytes 1.4, Absolute Monocytes 0.6, Absolute Eosinophils 0.4, Absolute Basophils 0.1, [facility] MCH[facility] 34.0 04/11/17 2302: CBC w Diff NO MAN DIFF REQ, RBC 2.51 L, MCV 87.6, MCH 29.6, RDW 17.6 H, MPV 7.6, Gran % 63.1, Lymphocytes % 22.0, Monocytes % 8.8, Eosinophils % 5.3 H, Basophils % 0.8, Absolute Granulocytes 4.5, Absolute Lymphocytes 1.6, Absolute Monocytes 0.6, Absolute Eosinophils 0.4, Absolute Basophils 0.1, PUBS MCHC 33.8 04/11/17 0645: CBC w Diff NO MAN DIFF REQ, RBC 2.13 L, MCV 87.4, MCH 29.5, RDW 18.6 H, MPV 7.5, Gran % 68.3, Lymphocytes % 19.2 L, Monocytes % 7.6, Eosinophils % 4.1, Basophils % 0.8, Absolute Granulocytes 4.4, Absolute Lymphocytes 1.2, Absolute Monocytes 0.5, Absolute Eosinophils 0.3, Absolute Basophils 0, PUBS MCHC 33.7 04/11/17 0630: Anion Gap 10, Estimated GFR 13 L, BUN/Creatinine Ratio 12.4 04/11/17 0032: Methadone Screen Cancelled, Barbiturate Screen Cancelled, Ur Phencyclidine Scrn Cancelled, Amphetamines Screen Cancelled, U Benzodiazepines Scrn Cancelled, Urine Cocaine Screen Cancelled, Urine Cannabis Screen Cancelled 04/10/17 1900: CBC w Diff NO MAN DIFF REQ, RBC 2.53 L, MCV 86.0, MCH 29.0, RDW 17.9 H, MPV 7.2 L, Gran % 66.5, Lymphocytes % 22.1, Monocytes % 8.2, Eosinophils % 2.9, Basophils % 0.3, Absolute Granulocytes 5.0, Absolute Lymphocytes 1.6, Absolute Monocytes 0.6, Absolute Eosinophils 0.2, Absolute Basophils 0, PUBS MCHC 33.8, Retic Count 2.68 H 04/10/17 1610: LD Total Cancelled, LD 1 Cancelled, LD 2 Cancelled, LD 3 Cancelled, LD 4 Cancelled, LD 5 Cancelled, LD 1:LD 2 Ratio Cancelled, Retic Count Cancelled 04/10/17 1515: Haptoglobin 140 04/10/17 1515: Anion Gap 12, Estimated GFR 8 L, BUN/Creatinine Ratio 19.1, Calcium 7.5 L, Phosphorus 3.1, Magnesium 1.7, Iron 175, TIBC 196 L, Ferritin 650.0 H, Lactate Dehydrogenase 395, Albumin 2.9 L, CBC w Diff NO MAN DIFF REQ, RBC 2.04 L, MCV 87.0, MCH 28.9, RDW 18.1 H, MPV 7.4, Gran % 66.6, Lymphocytes % 20.4 L, Monocytes % 8.8, Eosinophils % 3.2, Basophils % 1.0, Absolute Granulocytes 5.0, Absolute Lymphocytes 1.5, Absolute Monocytes 0.7 H, Absolute Eosinophils 0.2, Absolute Basophils 0.1, PUBS MCHC 33.2 04/10/17 1500: Sodium Cancelled, Potassium Cancelled, Chloride Cancelled, Carbon Dioxide Cancelled, Anion Gap Cancelled, BUN Cancelled, Creatinine Cancelled, BUN/ Creatinine Ratio Cancelled, Phosphorus Cancelled 04/10/17 1442: CBC w Diff NO MAN DIFF REQ, RBC 2.18 L, MCV 87.3, MCH 29.5, RDW 18.5 H, MPV 7.0 L, Gran % 66.2, Lymphocytes % 20.5, Monocytes % 9.4 H, Eosinophils % 3.1, Basophils % 0.8, Absolute Granulocytes 5.5, Absolute Lymphocytes 1.7, Absolute Monocytes 0.8 H, Absolute Eosinophils 0.3, Absolute Basophils 0.1, PUBS MCHC 33.8 Laboratory Tests 04/13/17 0716: Anion Gap 11, Estimated GFR 11 L, BUN/Creatinine Ratio 6.0 L, CBC w Diff NO MAN DIFF REQ, RBC 2.69 L, MCV 90.1, MCH 30.1, RDW 18.7 H, MPV 7.6, Gran % 68.3 , Lymphocytes % 19.1 L, Monocytes % 7.6, Eosinophils % 4.3, Basophils % 0.7, Absolute Granulocytes 5.5, Absolute Lymphocytes 1.5, Absolute Monocytes 0.6, Absolute Eosinophils 0.3, Absolute Basophils 0.1, PUBS MCHC 33.4 04/12/172049: CBC w Diff NO MAN DIFF REQ, RBC 2.80 L, MCV 89.1, MCH 29.6, RDW 18.5 H, MPV 7.0 L, Gran % 70.4, Lymphocytes % 16.9 L, Monocytes % 8.5, Eosinophils % 3.6, Basophils % 0.6, Absolute Granulocytes 6.1, Absolute Lymphocytes 1.5, Absolute Monocytes 0.7 H, Absolute Eosinophils 0.3, Absolute Basophils 0, PUBS MCHC 33.2 04/12/17 1240: 04/12/17 0840: Anion Gap 11, Estimated GFR 8 L, BUN/Creatinine Ratio 10.3, Calcium 7.9 L, Phosphorus 3.6, Magnesium 2.0, Albumin 2.8 L, CBC w Diff NO MAN DIFF REQ, RBC 2.55 L, MCV 88.0, MCH 29.8, RDW 17.7 H, MPV 7.6, Gran % 66.2, Lymphocytes % 18.8 L, Monocytes % 8.5, Eosinophils % 5.4 H, Basophils % 1.1, Absolute Granulocytes 4.5, Absolute Lymphocytes 1.3, Absolute Monocytes 0.6, Absolute Eosinophils 0.4, Absolute Basophils 0.1, PUBS MCHC 33.8 04/12/17 0634: Anion Gap 13, Estimated GFR 8 L, BUN/Creatinine Ratio 10.1, CBC w Diff NO MAN DIFF REQ, RBC 2.53 L, MCV 88.7, MCH 30.1, RDW 18.3 H, MPV 7.4, Gran % 64.6, Lymphocytes % 20.2 L, Monocytes % 8.9, Eosinophils % 5.5 H, Basophils % 0.8, Absolute Granulocytes 4.5, Absolute Lymphocytes 1.4, Absolute Monocytes 0.6, Absolute Eosinophils 0.4, Absolute Basophils 0.1, PUBS MCHC 34.0 04/11/17 2302: CBC w Diff NO MAN DIFF REQ, RBC 2.51 L, MCV 87.6, MCH 29.6, RDW 17.6 H, MPV 7.6, Gran % 63.1, Lymphocytes % 22.0, Monocytes % 8.8, Eosinophils % 5.3 H, Basophils % 0.8, Absolute Granulocytes 4.5, Absolute Lymphocytes 1.6, Absolute Monocytes 0.6, Absolute Eosinophils 0.4, Absolute Basophils 0.1, PUBS MCHC 33.8 Vital Signs Date Time Temp Pulse Resp B/P B/P Pulse O2 O2 Flow FiO2 Mean Ox Delivery Rate 04/13 0959 Room Air Room Air 04/13 0953 Room Air Room Air 04/13 0848 Room Air Room Air 04/13 0833 76 122/66 04/13 0801 76 122/66 15 0800 76 122/66 15 0643 98.8 76 18 122/66 95 Room Air 04/12 2208 98.8 87 20 130/70 96 Room Air 04/12 2109 87 130/70 04/12 2105 87 130/70 04/12 2105 87 130/70 04/12 1453 98.3 94 20 114/46 97 Room Air 04/12 1426 80 114/70 04/12 1425 80 114/70 04/12 1416 80 114/70
[2017-04-13 15:13] VITALS: BP 136/86
--- NOTE | 2017-04-13 16:06 | PN- Gastroenterology ---
Assessment/Plan Assessment/Recommendations: ASSESSMENT: 1. Shortness of Breath: Likely multifactorial due to COPD, question congestive heart failure, question pneumonia or aspiration 2. Acute on chronic anemia. Do not have documentation of EGD and/or colonoscopy done at [facility] 3. Coronary artery disease -- has had 2 cardiac catheterizations which were negative for coronary artery disease. 4. Bipolar disorder 5. COPD 6. History of acute systolic congestive heart failure 7. End-stage renal disease on hemodialysis RECOMMENDATIONS: 1. Consider EGD and Colonoscopy on Sunday given acute drop in H/H and patient's report of black stools. Given that patient has had 2 cardiac catherizations with clean coronaries would consider stable for GI work up as per cardiology note. 2. If patient is to be discharged to home will need to have procedures done as outpatient in the very near future. Subjective Subjective: Patient without overt gastrointestinal bleeding with increase in Hgb to 8.0. Do not have any record of EGD or Colonoscopy done at [facility] as yet. Patient has had 2 cardiac catheterizations which were unremarkable. Objective Vital Signs and I&Os Vital Signs Date Time Temp Pulse Resp B/P B/P Pulse O2 O2 Flow FiO2 Mean Ox Delivery Rate 04/13 1513 98.0 68 18 136/86 98 04/13 0959 Room Air Room Air 04/13 0953 Room Air Room Air 04/13 0848 Room Air Room Air 04/13 0833 76 122/66 04/13 0801 76 122/66 04/13 0800 76 122/66 04/13 0643 98.8 76 18 122/66 95 Room Air 04/12 2208 98.8 87 20 130/70 96 Room Air 04/12 2109 87 130/70 04/12 2105 87 130/70 04/12 2105 87 130/70 Intake & Output 04/13 1600 04/13 0400 04/12 1600 04/12 0400 04/11 1600 04/11 0400 Intake Total 319 340 0191 660 850 300 Output Total 0 0 0 Balance 806 070 3991 660 850 300 Intake, Blood 300 Product Intake, 3000 Dialysate Intake, IV 10 30 Intake, Oral 720 120 250 360 850 300 Number 0 0 0 0 Bowel Movements Output, Urine 0 0 0 Patient 200 lb 207 lb Weight Weight Chair scale Measurement Method Physical Exam General Appearance: well developed/nourished, no apparent distress Head: normal appearance Respiratory: normal breath sounds, lungs clear Cardiovascular: regular rate/rhythm Abdomen: normal bowel sounds, soft, non-tender, no organomegaly Extremities: no edema Neurologic/Psychiatric: alert, oriented x 3 Skin: normal color, warm/dry Current Medications: Current Medications Sig/Grace Start time Last Medication Dose Route Stop Time Status Admin Acetaminophen 325 MG Q6-PRN PRN 04/09 2245 AC 04/10 PO 0239 Albuterol Sulfate 2 PUF Q4P PRN 04/09 2300 AC INH Aspirin Buffered 81 MG 0800 04/10 0800 AC 12 PO 0800 Atorvastatin Calcium 40 MG 1700 04/10 1700 AC 04/12 PO 1812 Benztropine Mesylate 0.5 MG BID 04/10 1000 AC 04/13 PO 0802 Cinacalcet 30 MG DAILY 04/10 1000 AC 04/13 PO 0800 Epoetin Florentino 8,000 UNIT TUES THURS SAT PRN 04/10 1500 AC IV Furosemide 80 MG 0800,2200 04/10 0800 AC 04/13 PO 0759 Gabapentin 300 MG AT BEDTIME 04/10 0215 AC 04/12 PO 2105 Hydralazine HCl 20 MG BID 04/10 1000 AC 04/13 PO 0801 Labetalol HCl 100 MG BID 04/10 1000 AC 04/13 PO 0800 Lamotrigine 150 MG DAILY 04/10 1000 AC 04/13 PO 0757 Lorazepam 0 Q1P PRN 04/11 0045 AC IV Multivitamins 1 TAB 1000 04/10 1000 AC 04/13 PO 0801 Oxcarbazepine 600 MG BID 04/10 1000 AC 04/13 PO 0802 Pantoprazole Sodium 40 MG DAILY 04/10 1000 AC 04/13 IV 0801 Propranolol HCl 10 MG BID 04/10 1000 AC 04/13 PO 0833 Quetiapine Fumarate 400 MG AT BEDTIME 04/10 0215 AC 04/12 PO 2105 Sevelamer Carbonate 2,400 MG TIDAC 04/10 0800 AC 04/13 PO 1221 Tiotropium [place] 1 PUF DAILY 04/10 1000 AC 04/13 INH 0803 Results Pertinent Lab Results: Laboratory Tests 04/13 04/12 0716 2050 Chemistry Sodium (137 - 145 mmol/L) 142 Potassium (3.5 - 5.1 mmol/L) 3.9 Chloride (98 - 107 mmol/L) 104 Carbon Dioxide (22 - 30 mmol/L) 27 Anion Gap (5 - 16) 11 BUN (9 - 20 mg/dL) 33 H Creatinine (0.7 - 1.2 mg/dL) 5.5 *H Estimated GFR (>60 ml/min) 11 L BUN/Creatinine Ratio (7 - 25 %) 6.0 L Hematology CBC w Diff NO MAN DIFF REQ NO MAN DIFF REQ WBC (4.8 - 10.8 /CUMM) 8.1 8.6 RBC (4.70 - 6.10 /CUMM) 2.69 L 2.80 L Hgb (14.0 - 18.0 G/DL) 8.1 L 8.3 L Hct (42 - 52 %) 24.2 L 24.9 L MCV (80.0 - 94.0 FL) 90.1 89.1 MCH (27.0 - 31.0 PG) 30.1 29.6 RDW (11.5 - 14.5 %) 18.7 H 18.5 H Plt Count (130 - 400 /CUMM) 291 297 MPV (7.4 - 10.4 FL) 7.6 7.0 L Gran % (42.2 - 75.2 %) 68.3 70.4 Lymphocytes % (20.5 - 51.1 %) 19.1 L 16.9 L Monocytes % (1.7 - 9.3 %) 7.6 8.5 Eosinophils % (0 - 5 %) 4.3 3.6 Basophils % (0.0 - 2.0 %) 0.7 0.6 Absolute Granulocytes (1.4 - 6.5 /CUMM) 5.5 6.1 Absolute Lymphocytes (1.2 - 3.4 /CUMM) 1.5 1.5 Absolute Monocytes (0.10 - 0.60 /CUMM) 0.6 0.7 H Absolute Eosinophils (0.0 - 0.7 /CUMM) 0.3 0.3 Absolute Basophils (0.0 - 0.2 /CUMM) 0.1 0 PUBS MCHC (33.0 - 37.0 G/DL) 33.4 33.2 04/12 04/12 1240 0840 Chemistry Sodium (137 - 145 mmol/L) 139 Potassium (3.5 - 5.1 mmol/L) 4.3 Chloride (98 - 107 mmol/L) 101 Carbon Dioxide (22 - 30 mmol/L) 26 Anion Gap (5 - 16) 11 BUN (9 - 20 mg/dL) 18 72 H Creatinine (0.7 - 1.2 mg/dL) 7.0 *H Estimated GFR (>60 ml/min) 8 L BUN/Creatinine Ratio (7 - 25 %) 10.3 Calcium (8.4 - 10.2 mg/dL) 7.9 L Phosphorus (2.5 - 4.5 mg/dL) 3.6 Magnesium (1.6 - 2.3 mg/dL) 2.0 Albumin (3.5 - 5.0 g/dL) 2.8 L Hematology CBC w Diff NO MAN DIFF REQ WBC (4.8 - 10.8 /CUMM) 6.8 RBC (4.70 - 6.10 /CUMM) 2.55 L Hgb (14.0 - 18.0 G/DL) 7.6 L Hct (42 - 52 %) 22.4 L MCV (80.0 - 94.0 FL) 88.0 MCH (27.0 - 31.0 PG) 29.8 RDW (11.5 - 14.5 %) 17.7 H Plt Count (130 - 400 /CUMM) 235 MPV (7.4 - 10.4 FL) 7.6 Gran % (42.2 - 75.2 %) 66.2 Lymphocytes % (20.5 - 51.1 %) 18.8 L Monocytes % (1.7 - 9.3 %) 8.5 Eosinophils % (0 - 5 %) 5.4 H Basophils % (0.0 - 2.0 %) 1.1 Absolute Granulocytes (1.4 - 6.5 /CUMM) 4.5 Absolute Lymphocytes (1.2 - 3.4 /CUMM) 1.3 Absolute Monocytes (0.10 - 0.60 /CUMM) 0.6 Absolute Eosinophils (0.0 - 0.7 /CUMM) 0.4 Absolute Basophils (0.0 - 0.2 /CUMM) 0.1 PUBS MCHC (33.0 - 37.0 G/DL) 33.8 04/12 04/11 0634 2302 Chemistry Sodium (137 - 145 mmol/L) 140 Potassium (3.5 - 5.1 mmol/L) 4.1 Chloride (98 - 107 mmol/L) 101 Carbon Dioxide (22 - 30 mmol/L) 26 Anion Gap (5 - 16) 13 BUN (9 - 20 mg/dL) 70 H Creatinine (0.7 - 1.2 mg/dL) 6.9 *H Estimated GFR (>60 ml/min) 8 L BUN/Creatinine Ratio (7 - 25 %) 10.1 Hematology CBC w Diff NO MAN DIFF REQ NO MAN DIFF REQ WBC (4.8 - 10.8 /CUMM) 7.0 7.1 RBC (4.70 - 6.10 /CUMM) 2.53 L 2.51 L Hgb (14.0 - 18.0 G/DL) 7.6 L 7.4 *L Hct (42 - 52 %) 22.4 L 22.0 L MCV (80.0 - 94.0 FL) 88.7 87.6 MCH (27.0 - 31.0 PG) 30.1 29.6 RDW (11.5 - 14.5 %) 18.3 H 17.6 H Plt Count (130 - 400 /CUMM) 233 240 MPV (7.4 - 10.4 FL) 7.4 7.6 Gran % (42.2 - 75.2 %) 64.6 63.1 Lymphocytes % (20.5 - 51.1 %) 20.2 L 22.0 Monocytes % (1.7 - 9.3 %) 8.9 8.8 Eosinophils % (0 - 5 %) 5.5 H 5.3 H Basophils % (0.0 - 2.0 %) 0.8 0.8 Absolute Granulocytes (1.4 - 6.5 /CUMM) 4.5 4.5 Absolute Lymphocytes (1.2 - 3.4 /CUMM) 1.4 1.6 Absolute Monocytes (0.10 - 0.60 /CUMM) 0.6 0.6 Absolute Eosinophils (0.0 - 0.7 /CUMM) 0.4 0.4 Absolute Basophils (0.0 - 0.2 /CUMM) 0.1 0.1 PUBS MCHC (33.0 - 37.0 G/DL) 34.0 33.8 04/11 04/11 04/11 0645 0630 0032 Chemistry Sodium (137 - 145 mmol/L) 137 Potassium (3.5 - 5.1 mmol/L) 3.8 Chloride (98 - 107 mmol/L) 100 Carbon Dioxide (22 - 30 mmol/L) 27 Anion Gap (5 - 16) 10 BUN (9 - 20 mg/dL) 56 H Creatinine (0.7 - 1.2 mg/dL) 4.5 H Estimated GFR (>60 ml/min) 13 L BUN/Creatinine Ratio (7 - 25 %) 12.4 Hematology CBC w Diff NO MAN DIFF REQ WBC (4.8 - 10.8 /CUMM) 6.4 RBC (4.70 - 6.10 /CUMM) 2.13 L Hgb (14.0 - 18.0 G/DL) 6.3 *L Hct (42 - 52 %) 18.7 *L MCV (80.0 - 94.0 FL) 87.4 MCH (27.0 - 31.0 PG) 29.5 RDW (11.5 - 14.5 %) 18.6 H Plt Count (130 - 400 /CUMM) 239 MPV (7.4 - 10.4 FL) 7.5 Gran % (42.2 - 75.2 %) 68.3 Lymphocytes % (20.5 - 51.1 %) 19.2 L Monocytes % (1.7 - 9.3 %) 7.6 Eosinophils % (0 - 5 %) 4.1 Basophils % (0.0 - 2.0 %) 0.8 Absolute Granulocytes (1.4 - 6.5 /CUMM) 4.4 Absolute Lymphocytes (1.2 - 3.4 /CUMM) 1.2 Absolute Monocytes (0.10 - 0.60 /CUMM) 0.5 Absolute Eosinophils (0.0 - 0.7 /CUMM) 0.3 Absolute Basophils (0.0 - 0.2 /CUMM) 0 PUBS MCHC (33.0 - 37.0 G/DL) 33.7 Toxicology Methadone Screen Cancelled Barbiturate Screen Cancelled Ur Phencyclidine Scrn Cancelled Amphetamines Screen Cancelled U Benzodiazepines Scrn Cancelled Urine Cocaine Screen Cancelled Urine Cannabis Screen Cancelled 04/10 1900 Hematology CBC w Diff NO MAN DIFF REQ WBC (4.8 - 10.8 /CUMM) 7.5 RBC (4.70 - 6.10 /CUMM) 2.53 L Hgb (14.0 - 18.0 G/DL) 7.3 *L Hct (42 - 52 %) 21.7 L MCV (80.0 - 94.0 FL) 86.0 MCH (27.0 - 31.0 PG) 29.0 RDW (11.5 - 14.5 %) 17.9 H Plt Count (130 - 400 /CUMM) 263 MPV (7.4 - 10.4 FL) 7.2 L Gran % (42.2 - 75.2 %) 66.5 Lymphocytes % (20.5 - 51.1 %) 22.1 Monocytes % (1.7 - 9.3 %) 8.2 Eosinophils % (0 - 5 %) 2.9 Basophils % (0.0 - 2.0 %) 0.3 Absolute Granulocytes (1.4 - 6.5 /CUMM) 5.0 Absolute Lymphocytes (1.2 - 3.4 /CUMM) 1.6 Absolute Monocytes (0.10 - 0.60 /CUMM) 0.6 Absolute Eosinophils (0.0 - 0.7 /CUMM) 0.2 Absolute Basophils (0.0 - 0.2 /CUMM) 0 PUBS MCHC (33.0 - 37.0 G/DL) 33.8 Retic Count (0.5 - 2.0 %) 2.68 H
--- NOTE | 2017-04-13 16:41 | PN- Psychiatry ---
Assessment/Plan Impression: Identifying Info: 61-year-old single conserved male well known to this service presents to [place] emergency department on 04/09/2017 which complaint of shortness of breath. Seen today on telemetry. SUBJECTIVE Patient presents today again without psychiatric complaint. States he is feeling "fine." Brief ROS Gait: Not observed Sleep: Adequate Appetite: Adequate OBJECTIVE Discussed case with Social Work, patient was conserved at [facility] this week and now has court appointed conservator. Disposition is long-term care. Mental Status Exam Presentation/Appearance: Calm and cooperative with evaluation. Hospital garb. Lying in bed. Orientation: x3 Sensorium: Awake and alert Eye contact: Appropriate Affect: Somewhat blunted Mood: "Fine" Depression: Denies Anxiety: Denies Thought Content: - Denies SI/HI, AH/VH, PI. States and also believes they will not kill themselves. - Denies Hopeless/Helpless Thoughts Thought Process: Linear Associations: Appropriate Speech: Normal tone and rate, short responses Judgment: Fair Insight: Fair Cognition: Memory: Grossly intact Attention/Concentration: Grossly intact Fund of Knowledge: Adequate Abstractions: Not assessed MMSE: Not completed CIWA scores have been 0. ASSESSMENT 61-year-old conserved single male with history of severe bipolar disorder requiring multiple long-term hospitalizations currently presents as psychiatrically asymptomatic. While in hospital it would be prudent to continue psychotropics as taken at home as medically able to maintain stability. Diagnosis Bipolar I disorder, severe, most recent episode manic by history Alcohol use disorder by history Cannabis use disorder A total of 30 minutes was spent with the patient with more than 50% of the time spent in counseling and/or coordination of care. Suggestion: - Continue psychtropics as currently ordered. - We will continue to collect collateral, work with Social Work, [facility], and Care for dispo. Thank you for including psychiatry in this case we'll continue to follow. Subjective Subjective: as above Objective Last 24 Hrs of Vital Signs/I&O Current Medications Sig/Grace Start time Last Medication Dose Route Stop Time Status Admin Acetaminophen 325 MG Q6-PRN PRN 04/09 2245 AC 04/10 PO 0239 Albuterol Sulfate 2 PUF Q4P PRN 04/09 2300 AC INH Aspirin Buffered 81 MG 0800 04/10 0800 AC 12/15 PO 0800 Atorvastatin Calcium 40 MG 1700 04/10 1700 AC 12/14 PO 1812 Benztropine Mesylate 0.5 MG BID 04/10 1000 AC 04/13 PO 0802 Cinacalcet 30 MG DAILY 04/10 1000 AC 04/13 PO 0800 Epoetin Florentino 8,000 UNIT TUES THURS SAT PRN 04/10 1500 AC IV Furosemide 80 MG 0800,2200 04/10 0800 AC 04/13 PO 0759 Gabapentin 300 MG AT BEDTIME 04/10 0215 AC 04/12 PO 2105 Hydralazine HCl 20 MG BID 04/10 1000 AC 04/13 PO 0801 Labetalol HCl 100 MG BID 04/10 1000 AC 04/13 PO 0800 Lamotrigine 150 MG DAILY 04/10 1000 AC 04/13 PO 0757 Lorazepam 0 Q1P PRN 04/11 0045 AC IV Multivitamins 1 TAB 1000 04/10 1000 AC 04/13 PO 0801 Oxcarbazepine 600 MG BID 04/10 1000 AC 04/13 PO 0802 Pantoprazole Sodium 40 MG DAILY 04/10 1000 AC 04/13 IV 0801 Propranolol HCl 10 MG BID 04/10 1000 AC 04/13 PO 0833 Quetiapine Fumarate 400 MG AT BEDTIME 04/10 0215 AC 04/12 PO 2105 Sevelamer Carbonate 2,400 MG TIDAC 04/10 0800 AC 04/13 PO 1221 Tiotropium [place] 1 PUF DAILY 04/10 1000 AC 04/13 INH 0803 Laboratory Tests 04/13/17 0716: Anion Gap 11, Estimated GFR 11 L, BUN/Creatinine Ratio 6.0 L, CBC w Diff NO MAN DIFF REQ, RBC 2.69 L, MCV 90.1, MCH 30.1, RDW 18.7 H, MPV 7.6, Gran % 68.3 , Lymphocytes % 19.1 L, Monocytes % 7.6, Eosinophils % 4.3, Basophils % 0.7, Absolute Granulocytes 5.5, Absolute Lymphocytes 1.5, Absolute Monocytes 0.6, Absolute Eosinophils 0.3, Absolute Basophils 0.1, PUBS MCHC 33.4 04/12/172049: CBC w Diff NO MAN DIFF REQ, RBC 2.80 L, MCV 89.1, MCH 29.6, RDW 18.5 H, MPV 7.0 L, Gran % 70.4, Lymphocytes % 16.9 L, Monocytes % 8.5, Eosinophils % 3.6, Basophils % 0.6, Absolute Granulocytes 6.1, Absolute Lymphocytes 1.5, Absolute Monocytes 0.7 H, Absolute Eosinophils 0.3, Absolute Basophils 0, PUBS MCHC 33.2 Vital Signs Date Time Temp Pulse Resp B/P B/P Pulse O2 O2 Flow FiO2 Mean Ox Delivery Rate 04/13 1513 98.0 68 18 136/86 98 04/13 0959 Room Air Room Air 04/13 0953 Room Air Room Air 04/13 0848 Room Air Room Air 04/13 0833 76 122/66 04/13 0801 76 122/66 04/13 0800 76 122/66 04/13 0643 98.8 76 18 122/66 95 Room Air 04/12 2208 98.8 87 20 130/70 96 Room Air 04/12 2109 87 130/70 04/12 2105 87 130/70 04/12 2105 87 130/70 Intake & Output 04/13 1600 04/13 0800 04/13 0000 Intake Total 600 120 130 Output Total 0 Balance 600 120 130 Intake, IV 10 Intake, Oral 600 120 120 Number 0 0 Bowel Movements Output, Urine 0 Patient 200 lb Weight Weight Chair scale Measurement Method
[2017-04-13 22:15] VITALS: BP 150/78
[2017-04-14 07:33] LABS: ABSOLUTE BASOPHIL COUNT 0.1 /CUMM (0.0-0.2); ABSOLUTE EOSINOPHIL COUNT 0.5 /CUMM (0.0-0.7); ABSOLUTE GRANULOCYTE CT 7.3 /CUMM (1.4-6.5); ABSOLUTE LYMPH COUNT 1.6 /CUMM (1.2-3.4); ABSOLUTE MONOCYTE COUNT 0.8 /CUMM (0.10-0.60); BASOPHIL % 0.8 % (0.0-2.0); EOSINOPHIL % 4.5 % (0-5); GRANULOCYTE % 70.8 % (42.2-75.2); HEMATOCRIT 26.2 % (42-52); MEAN CORPUSCULAR HGB 30.1 PG (27.0-31.0); MEAN CORPUSCULAR HGB CONC 33.3 G/DL (33.0-37.0); MEAN CORPUSCULAR VOLUME 90.3 FL (80.0-94.0); MEAN PLATELET VOLUME 7.6 FL (7.4-10.4); PLATELET COUNT 345 /CUMM (130-400); RBC DISTRIBUTION WIDTH 18.7 % (11.5-14.5); WHITE BLOOD CELL COUNT 10.3 /CUMM (4.8-10.8)
[2017-04-14 07:38] VITALS: BP 154/84
--- NOTE | 2017-04-14 09:08 | PN- Housestaff ---
See Addendum Subjective Follow-up For: symptomatic anemia ESRD on HD Tele-Events Since Last Visit: sinus rhythm HR 70s-80s Subjective: dialyzed today, no complaints denies melena, fatigue, chest pain, dyspnea Review of Systems Constitutional: Reports: see HPI. Objective Last 24 Hrs of Vital Signs/I&O Vital Signs Date Time Temp Pulse Resp B/P B/P Pulse O2 O2 Flow FiO2 Mean Ox Delivery Rate 04/14 1305 80 182/98 04/14 1258 86 182/98 04/14 1258 86 182/98 04/14 1256 86 182/98 04/14 0738 98.2 66 18 154/84 98 Room Air 04/14 0400 86 04/14 0200 87 04/14 0000 87 04/13 2215 98.0 83 18 150/78 100 Room Air 04/13 2200 80 04/13 2107 81 164/90 04/13 2107 80 164/90 04/13 2107 81 164/90 04/13 2000 95 04/13 1513 98.0 68 18 136/86 98 Intake & Output 04/14 1600 04/14 0800 04/14 0000 Intake Total 240 120 480 Output Total 4000 Balance -3760 120 480 Intake, Oral 240 120 480 Output, 4000 Dialysate Patient 94.801 kg 94.801 kg Weight Weight Standing Scale Standing Scale Measurement Method Physical Exam General Appearance: Alert, Oriented X3, Cooperative, No Acute Distress Cardiovascular: Regular Rate, Normal S1, Normal S2, No Murmurs Lungs: Clear to Auscultation, Normal Air Movement Abdomen: Normal Bowel Sounds, Soft, No Tenderness, No Masses Extremities: No Clubbing, No Cyanosis, No Edema, LUE fistula Current Medications: Current Medications Sig/Grace Start time Last Medication Dose Route Stop Time Status Admin Acetaminophen 325 MG Q6-PRN PRN 04/09 2245 AC 04/10 PO 0239 Albuterol Sulfate 2 PUF Q4P PRN 04/09 2300 AC INH Aspirin Buffered 81 MG 0800 04/10 0800 AC 04/14 PO 1258 Atorvastatin Calcium 40 MG 1700 04/10 1700 AC 04/13 PO 1716 Benztropine Mesylate 0.5 MG BID 04/10 1000 AC 04/14 PO 1259 Cinacalcet 30 MG DAILY 04/10 1000 AC 04/14 PO 1258 Epoetin Florentino 8,000 UNIT TUES THURS SAT PRN 04/10 1500 AC IV Furosemide 80 MG 0800,2200 04/10 0800 AC 04/14 PO 1258 Gabapentin 300 MG AT BEDTIME 04/10 0215 AC 04/13 PO 2108 Hydralazine HCl 20 MG BID 04/10 1000 AC 04/14 PO 1258 Labetalol HCl 100 MG BID 04/10 1000 AC 04/14 PO 1256 Lamotrigine 150 MG DAILY 04/10 1000 AC 04/14 PO 1258 Lorazepam 0 Q1P PRN 04/11 0045 AC IV Multivitamins 1 TAB 1000 04/10 1000 AC 04/14 PO 1258 Oxcarbazepine 600 MG BID 04/10 1000 AC 04/14 PO 1259 Pantoprazole Sodium 40 MG DAILY 04/10 1000 AC 04/14 IV 1259 Propranolol HCl 10 MG BID 04/10 1000 AC 04/14 PO 1258 Quetiapine Fumarate 400 MG AT BEDTIME 04/10 0215 AC 04/13 PO 2108 Sevelamer Carbonate 2,400 MG TIDAC 04/10 0800 AC 04/14 PO 1256 Tiotropium [place] 1 PUF DAILY 04/10 1000 AC 04/14 INH 1259 Last 24 Hrs of Lab/Freddy Results Last 24 Hrs of Labs/Mics: Laboratory Tests 04/14/17 0655: Anion Gap 12, Estimated GFR 7 L, BUN/Creatinine Ratio 5.7 L, CBC w Diff NO MAN DIFF REQ, RBC 2.90 L, MCV 90.3, MCH 30.1, RDW 18.7 H, MPV 7.6, Gran % 70.8, Lymphocytes % 15.9 L, Monocytes % 8.0, Eosinophils % 4.5, Basophils % 0.8, Absolute Granulocytes 7.3 H, Absolute Lymphocytes 1.6, Absolute Monocytes 0.8 H, Absolute Eosinophils 0.5, Absolute Basophils 0.1, PUBS MCHC 33.3 Assessment/Plan Assessment: 61 yo M active smoker with pmhx of ESRD on HD, HFrEF (EF 45-50%) HTN, HLD, bipolar disorder, asthma/COPD, and seizure history presented with dyspnea and acute blood loss anemia with guaiac positive stool. Acute blood loss anemia: with reported melena/guiaic positive GI bleed H&H on presentation 5.5/16.1 s/p 6 units pRBC transfusion CBC currently 8.7/26.2 GI consultation planned for EGD/colonoscopy Sunday Bowel prep with 1 gallon Golytely on Sunday IV Protonix No NSAIDs Continue Epogen for chronic anemia from ESRD Atypical chest pain: Troponins negative for myocardial ischemia Reportedly negative coronary angiography in 02/2017 Takotsubo cardiomyopathy for HFrEF echo LVEF 45% Follow up cardiology recommendations ESRD on HD: Nephrology consultation Continue regular hemodialysis Sunday//Sunday Trend renal function Continue nephrovitamin, sevalamer, sensipar and epogen injection History of bipolar disorder: Continue the benztropine, aripiprazole and seroquel. HFrEF: Continue the Lasix, aspirin, propranolol, labetalol, and hydralazine HLD: Continue Lipitor for hyperlipidemia History of seizures: Continue oxcarbazepine and lamotrigine Dialysis diet 2g sodium and 2g potassium, water restriction to 1200ml DVT ppx- 5000 units subcutaneous heparin Q8H Full code Problem List: 1. ESRD (end stage renal disease) on dialysis 2. Hypertension 3. Chest pain 4. CHF (congestive heart failure) 5. GI bleed 6. Symptomatic anemia Pain Ratin Pain Location: n/a Pain Goal: Pain 4 or less Pain Plan: prn Tomorrow's Labs & Rationales: cbc, bep, mag, phos, calcium
--- NOTE | 2017-04-14 12:17 | PN- Nephrology ---
Assessment/Plan Assessment: End-stage renal disease: Dialysis in process today as per Sunday schedule. Ultrafiltration as tolerated (goal for liters UF). His listed target weight of 100 kg will need to be lowered as he has been coming off of dialysis closer to 92-93 kg. Anemia: Due to recent GI bleed superimposed on anemia of chronic kidney disease. H&H is stable. No heparin with dialysis. Receives epogen 3x/week with each HD. Suggestion: We'll continue HD Sunday, with Epogen at each session Subjective Subjective: No acute events Seen on dialysis Reports that the blood in his stool has resolved and no additional vomiting H&H is stable Review of Systems: No fever or chills Shortness of breath or chest pain No edema Objective Vital Signs and I&Os Vital Signs Date Time Temp Pulse Resp B/P B/P Pulse O2 O2 Flow FiO2 Mean Ox Delivery Rate 04/14 0738 98.2 66 18 154/84 98 Room Air 04/14 0400 86 04/14 0200 87 04/14 0000 87 04/13 2215 98.0 83 18 150/78 100 Room Air 04/13 2200 80 04/13 2107 81 164/90 04/13 2107 80 164/90 04/13 2107 81 164/90 04/13 2000 95 04/13 1513 98.0 68 18 136/86 98 Intake & Output 04/14 1600 04/14 0400 04/13 1600 04/13 0400 04/12 1600 04/12 0400 Intake Total 120 480 518 735 2526 660 Output Total 0 0 Balance 120 480 890 810 0203 660 Intake, Blood 300 Product Intake, 3000 Dialysate Intake, IV 10 30 Intake, Oral 120 480 720 120 250 360 Number 0 0 0 Bowel Movements Output, Urine 0 0 Patient 209 lb 200 lb 207 lb Weight Weight Standing Scale Chair scale Measurement Method Physical Exam: General: NAD, A+O x3. HEENT: NC/AT. Neck: negative for LA, JVD CV: RRR, no m/r/g Pulm: CTAB, no rales Abd: soft, NT Lower Ext: neg edema UE: LUE AVF +thril/bruit Neuro: neg tremor, asterixis Current Medications: Current Medications Sig/Grace Start time Last Medication Dose Route Stop Time Status Admin Acetaminophen 325 MG Q6-PRN PRN 12/11 2245 AC 04/10 PO 0239 Albuterol Sulfate 2 PUF Q4P PRN 04/09 2300 AC INH Aspirin Buffered 81 MG 0800 04/10 0800 AC 04/13 PO 0800 Atorvastatin Calcium 40 MG 1700 04/10 1700 AC 04/13 PO 1716 Benztropine Mesylate 0.5 MG BID 04/10 1000 AC 04/13 PO 2108 Cinacalcet 30 MG DAILY 04/10 1000 AC 04/13 PO 0800 Epoetin Florentino 8,000 UNIT TUES THURS SAT PRN 04/10 1500 AC IV Furosemide 80 MG 0800,2200 04/10 0800 AC 04/13 PO 2108 Gabapentin 300 MG AT BEDTIME 04/10 0215 AC 04/13 PO 2108 Hydralazine HCl 20 MG BID 04/10 1000 AC 04/13 PO 210 Labetalol HCl 100 MG BID 04/10 1000 AC 04/13 PO 2107 Lamotrigine 150 MG DAILY 04/10 1000 AC 04/13 PO 0757 Lorazepam 0 Q1P PRN 04/11 0045 AC IV Multivitamins 1 TAB 1000 04/10 1000 AC 04/13 PO 0801 Oxcarbazepine 600 MG BID 04/10 1000 AC 04/13 PO 2108 Pantoprazole Sodium 40 MG DAILY 04/10 1000 AC 04/13 IV 0801 Propranolol HCl 10 MG BID 04/10 1000 AC 04/13 PO 210 Quetiapine Fumarate 400 MG AT BEDTIME 04/10 0215 AC 04/13 PO 2108 Sevelamer Carbonate 2,400 MG TIDAC 04/10 0800 AC 04/13 PO 171 Tiotropium [place] 1 PUF DAILY 04/10 1000 AC 04/13 INH 0803 Results Pertinent Lab Results: Laboratory Tests 04/14 04/13 0655 0716 Chemistry Sodium (137 - 145 mmol/L) 139 142 Potassium (3.5 - 5.1 mmol/L) 4.4 3.9 Chloride (98 - 107 mmol/L) 100 104 Carbon Dioxide (22 - 30 mmol/L) 27 27 Anion Gap (5 - 16) 12 11 BUN (9 - 20 mg/dL) 43 H 33 H Creatinine (0.7 - 1.2 mg/dL) 7.5 *H 5.5 *H Estimated GFR (>60 ml/min) 7 L 11 L BUN/Creatinine Ratio (7 - 25 %) 5.7 L 6.0 L Hematology CBC w Diff NO MAN DIFF REQ NO MAN DIFF REQ WBC (4.8 - 10.8 /CUMM) 10.3 8.1 RBC (4.70 - 6.10 /CUMM) 2.90 L 2.69 L Hgb (14.0 - 18.0 G/DL) 8.7 L 8.1 L Hct (42 - 52 %) 26.2 L 24.2 L MCV (80.0 - 94.0 FL) 90.3 90.1 MCH (27.0 - 31.0 PG) 30.1 30.1 RDW (11.5 - 14.5 %) 18.7 H 18.7 H Plt Count (130 - 400 /CUMM) 345 291 MPV (7.4 - 10.4 FL) 7.6 7.6 Gran % (42.2 - 75.2 %) 70.8 68.3 Lymphocytes % (20.5 - 51.1 %) 15.9 L 19.1 L Monocytes % (1.7 - 9.3 %) 8.0 7.6 Eosinophils % (0 - 5 %) 4.5 4.3 Basophils % (0.0 - 2.0 %) 0.8 0.7 Absolute Granulocytes (1.4 - 6.5 /CUMM) 7.3 H 5.5 Absolute Lymphocytes (1.2 - 3.4 /CUMM) 1.6 1.5 Absolute Monocytes (0.10 - 0.60 /CUMM) 0.8 H 0.6 Absolute Eosinophils (0.0 - 0.7 /CUMM) 0.5 0.3 Absolute Basophils (0.0 - 0.2 /CUMM) 0.1 0.1 PUBS MCHC (33.0 - 37.0 G/DL) 33.3 33.4 04/12 04/12 2050 1240 Chemistry BUN (9 - 20 mg/dL) 18 Hematology CBC w Diff NO MAN DIFF REQ WBC (4.8 - 10.8 /CUMM) 8.6 RBC (4.70 - 6.10 /CUMM) 2.80 L Hgb (14.0 - 18.0 G/DL) 8.3 L Hct (42 - 52 %) 24.9 L MCV (80.0 - 94.0 FL) 89.1 MCH (27.0 - 31.0 PG) 29.6 RDW (11.5 - 14.5 %) 18.5 H Plt Count (130 - 400 /CUMM) 297 MPV (7.4 - 10.4 FL) 7.0 L Gran % (42.2 - 75.2 %) 70.4 Lymphocytes % (20.5 - 51.1 %) 16.9 L Monocytes % (1.7 - 9.3 %) 8.5 Eosinophils % (0 - 5 %) 3.6 Basophils % (0.0 - 2.0 %) 0.6 Absolute Granulocytes (1.4 - 6.5 /CUMM) 6.1 Absolute Lymphocytes (1.2 - 3.4 /CUMM) 1.5 Absolute Monocytes (0.10 - 0.60 /CUMM) 0.7 H Absolute Eosinophils (0.0 - 0.7 /CUMM) 0.3 Absolute Basophils (0.0 - 0.2 /CUMM) 0 PUBS MCHC (33.0 - 37.0 G/DL) 33.2 04/12 04/12 0840 0634 Chemistry Sodium (137 - 145 mmol/L) 139 140 Potassium (3.5 - 5.1 mmol/L) 4.3 4.1 Chloride (98 - 107 mmol/L) 101 101 Carbon Dioxide (22 - 30 mmol/L) 26 26 Anion Gap (5 - 16) 11 13 BUN (9 - 20 mg/dL) 72 H 70 H Creatinine (0.7 - 1.2 mg/dL) 7.0 *H 6.9 *H Estimated GFR (>60 ml/min) 8 L 8 L BUN/Creatinine Ratio (7 - 25 %) 10.3 10.1 Calcium (8.4 - 10.2 mg/dL) 7.9 L Phosphorus (2.5 - 4.5 mg/dL) 3.6 Magnesium (1.6 - 2.3 mg/dL) 2.0 Albumin (3.5 - 5.0 g/dL) 2.8 L Hematology CBC w Diff NO MAN DIFF REQ NO MAN DIFF REQ WBC (4.8 - 10.8 /CUMM) 6.8 7.0 RBC (4.70 - 6.10 /CUMM) 2.55 L 2.53 L Hgb (14.0 - 18.0 G/DL) 7.6 L 7.6 L Hct (42 - 52 %) 22.4 L 22.4 L MCV (80.0 - 94.0 FL) 88.0 88.7 MCH (27.0 - 31.0 PG) 29.8 30.1 RDW (11.5 - 14.5 %) 17.7 H 18.3 H Plt Count (130 - 400 /CUMM) 235 233 MPV (7.4 - 10.4 FL) 7.6 7.4 Gran % (42.2 - 75.2 %) 66.2 64.6 Lymphocytes % (20.5 - 51.1 %) 18.8 L 20.2 L Monocytes % (1.7 - 9.3 %) 8.5 8.9 Eosinophils % (0 - 5 %) 5.4 H 5.5 H Basophils % (0.0 - 2.0 %) 1.1 0.8 Absolute Granulocytes (1.4 - 6.5 /CUMM) 4.5 4.5 Absolute Lymphocytes (1.2 - 3.4 /CUMM) 1.3 1.4 Absolute Monocytes (0.10 - 0.60 /CUMM) 0.6 0.6 Absolute Eosinophils (0.0 - 0.7 /CUMM) 0.4 0.4 Absolute Basophils (0.0 - 0.2 /CUMM) 0.1 0.1 PUBS MCHC (33.0 - 37.0 G/DL) 33.8 34.0 04/11 2302 Hematology CBC w Diff NO MAN DIFF REQ WBC (4.8 - 10.8 /CUMM) 7.1 RBC (4.70 - 6.10 /CUMM) 2.51 L Hgb (14.0 - 18.0 G/DL) 7.4 *L Hct (42 - 52 %) 22.0 L MCV (80.0 - 94.0 FL) 87.6 MCH (27.0 - 31.0 PG) 29.6 RDW (11.5 - 14.5 %) 17.6 H Plt Count (130 - 400 /CUMM) 240 MPV (7.4 - 10.4 FL) 7.6 Gran % (42.2 - 75.2 %) 63.1 Lymphocytes % (20.5 - 51.1 %) 22.0 Monocytes % (1.7 - 9.3 %) 8.8 Eosinophils % (0 - 5 %) 5.3 H Basophils % (0.0 - 2.0 %) 0.8 Absolute Granulocytes (1.4 - 6.5 /CUMM) 4.5 Absolute Lymphocytes (1.2 - 3.4 /CUMM) 1.6 Absolute Monocytes (0.10 - 0.60 /CUMM) 0.6 Absolute Eosinophils (0.0 - 0.7 /CUMM) 0.4 Absolute Basophils (0.0 - 0.2 /CUMM) 0.1 PUBS MCHC (33.0 - 37.0 G/DL) 33.8
[2017-04-14 13:05] VITALS: BP 182/98
[2017-04-14 14:50] VITALS: BP 144/80
--- NOTE | 2017-04-14 17:41 | PN- Gastroenterology ---
Assessment/Plan Assessment/Recommendations: ASSESSMENT: 1. Shortness of Breath: Likely multifactorial due to COPD, question congestive heart failure, question pneumonia or aspiration 2. Acute on chronic anemia. Do not have documentation of EGD and/or colonoscopy done at [facility] 3. Coronary artery disease -- has had 2 cardiac catheterizations which were negative for coronary artery disease. 4. Bipolar disorder 5. COPD 6. History of acute systolic congestive heart failure 7. End-stage renal disease on hemodialysis RECOMMENDATIONS: 1. EGD and Colonoscopy on Sunday given acute drop in H/H and patient's report of black stools. Given that patient has had 2 cardiac catherizations with clean coronaries would consider stable for GI work up as per cardiology note. Patient will start a clear liquid diet tomorrow with breakfast. He will take 2 liters of golytely at 5PM on Sunday night and then take another 2 liters at 5AM on Sunday morning and be NPO after the second 2 liters. Patient to have 2 dulcolax at bedtime Sunday. 2. Risks benefits discussed with patient Subjective Subjective: Patient comfortable. No signs of overt gastrointestinal bleeding. H/H now appropriately increased. Patient receiving epogen at dialysis. Objective Vital Signs and I&Os Vital Signs Date Time Temp Pulse Resp B/P B/P Pulse O2 O2 Flow FiO2 Mean Ox Delivery Rate 04/14 1450 98.1 74 20 144/80 97 Room Air 04/14 1305 80 182/98 04/14 1258 86 182/98 04/14 1258 86 182/98 04/14 1256 86 182/98 04/14 0738 98.2 66 18 154/84 98 Room Air 04/14 0400 86 04/14 0200 87 04/14 0000 87 04/13 2215 98.0 83 18 150/78 100 Room Air 04/13 2200 80 04/13 210 81 164/90 04/13 2107 80 164/90 04/13 2107 81 164/90 04/13 2000 95 Intake & Output 04/14 1600 04/14 0400 04/13 1600 04/13 0400 04/12 1600 04/12 0400 Intake Total 360 480 577 288 4652 660 Output Total 4000 0 0 Balance -3640 480 475 784 8886 660 Intake, Blood 300 Product Intake, 3000 Dialysate Intake, IV 10 30 Intake, Oral 360 480 720 120 250 360 Number 0 0 0 Bowel Movements Output, 4000 Dialysate Output, Urine 0 0 Patient 209 lb 200 lb 207 lb Weight Weight Standing Scale Chair scale Measurement Method Physical Exam General Appearance: no apparent distress, alert, awake Head: normal appearance Ears, Nose, Throat: hearing grossly normal Neck: supple, full range of motion Respiratory: no respiratory distress, lungs clear Cardiovascular: regular rate/rhythm, Normal S1 and S2, no rubs, murmurs or gallops Abdomen: normal bowel sounds, soft, non-tender, no organomegaly Extremities: no edema Neurologic/Psychiatric: alert, oriented x 3 Skin: intact, normal color Current Medications: Current Medications Sig/Grace Start time Last Medication Dose Route Stop Time Status Admin Acetaminophen 325 MG Q6-PRN PRN 04/09 2245 AC 04/10 PO 0239 Albuterol Sulfate 2 PUF Q4P PRN 04/09 2300 AC INH Aspirin Buffered 81 MG 0800 12 0800 AC 04/14 PO 1258 Atorvastatin Calcium 40 MG 1700 04/10 1700 AC 04/14 PO 1653 Benztropine Mesylate 0.5 MG BID 04/10 1000 AC 04/14 PO 1259 Cinacalcet 30 MG DAILY 04/10 1000 AC 04/14 PO 1258 Epoetin Florentino 8,000 UNIT TUES THURS SAT PRN 04/10 1500 AC IV Furosemide 80 MG 0800,2200 04/10 0800 AC 04/14 PO 1258 Gabapentin 300 MG AT BEDTIME 04/10 0215 AC 04/13 PO 2108 Hydralazine HCl 20 MG BID 04/10 1000 AC 04/14 PO 1258 Labetalol HCl 100 MG BID 04/10 1000 AC 04/14 PO 1256 Lamotrigine 150 MG DAILY 04/10 1000 AC 04/14 PO 1258 Lorazepam 0 Q1P PRN 04/11 0045 AC IV Multivitamins 1 TAB 1000 04/10 1000 AC 04/14 PO 1258 Oxcarbazepine 600 MG BID 04/10 1000 AC 04/14 PO 1259 Pantoprazole Sodium 40 MG DAILY 04/10 1000 AC 04/14 IV 1259 Polyethylene Glycol 1 GAL ONE TIME ONE 04/15 1600 AC PO 04/15 1601 Propranolol HCl 10 MG BID 04/10 1000 AC 04/14 PO 1258 Quetiapine Fumarate 400 MG AT BEDTIME 04/10 0215 AC 04/13 PO 2108 Sevelamer Carbonate 2,400 MG TIDAC 04/10 0800 AC 04/14 PO 1653 Tiotropium [place] 1 PUF DAILY 04/10 1000 AC 04/14 INH 1259 Results Pertinent Lab Results: Laboratory Tests 04/14 04/13 0655 0716 Chemistry Sodium (137 - 145 mmol/L) 139 142 Potassium (3.5 - 5.1 mmol/L) 4.4 3.9 Chloride (98 - 107 mmol/L) 100 104 Carbon Dioxide (22 - 30 mmol/L) 27 27 Anion Gap (5 - 16) 12 11 BUN (9 - 20 mg/dL) 43 H 33 H Creatinine (0.7 - 1.2 mg/dL) 7.5 *H 5.5 *H Estimated GFR (>60 ml/min) 7 L 11 L BUN/Creatinine Ratio (7 - 25 %) 5.7 L 6.0 L Hematology CBC w Diff NO MAN DIFF REQ NO MAN DIFF REQ WBC (4.8 - 10.8 /CUMM) 10.3 8.1 RBC (4.70 - 6.10 /CUMM) 2.90 L 2.69 L Hgb (14.0 - 18.0 G/DL) 8.7 L 8.1 L Hct (42 - 52 %) 26.2 L 24.2 L MCV (80.0 - 94.0 FL) 90.3 90.1 MCH (27.0 - 31.0 PG) 30.1 30.1 RDW (11.5 - 14.5 %) 18.7 H 18.7 H Plt Count (130 - 400 /CUMM) 345 291 MPV (7.4 - 10.4 FL) 7.6 7.6 Gran % (42.2 - 75.2 %) 70.8 68.3 Lymphocytes % (20.5 - 51.1 %) 15.9 L 19.1 L Monocytes % (1.7 - 9.3 %) 8.0 7.6 Eosinophils % (0 - 5 %) 4.5 4.3 Basophils % (0.0 - 2.0 %) 0.8 0.7 Absolute Granulocytes (1.4 - 6.5 /CUMM) 7.3 H 5.5 Absolute Lymphocytes (1.2 - 3.4 /CUMM) 1.6 1.5 Absolute Monocytes (0.10 - 0.60 /CUMM) 0.8 H 0.6 Absolute Eosinophils (0.0 - 0.7 /CUMM) 0.5 0.3 Absolute Basophils (0.0 - 0.2 /CUMM) 0.1 0.1 PUBS MCHC (33.0 - 37.0 G/DL) 33.3 33.4 04/12 04/12 2050 1240 Chemistry BUN (9 - 20 mg/dL) 18 Hematology CBC w Diff NO MAN DIFF REQ WBC (4.8 - 10.8 /CUMM) 8.6 RBC (4.70 - 6.10 /CUMM) 2.80 L Hgb (14.0 - 18.0 G/DL) 8.3 L Hct (42 - 52 %) 24.9 L MCV (80.0 - 94.0 FL) 89.1 MCH (27.0 - 31.0 PG) 29.6 RDW (11.5 - 14.5 %) 18.5 H Plt Count (130 - 400 /CUMM) 297 MPV (7.4 - 10.4 FL) 7.0 L Gran % (42.2 - 75.2 %) 70.4 Lymphocytes % (20.5 - 51.1 %) 16.9 L Monocytes % (1.7 - 9.3 %) 8.5 Eosinophils % (0 - 5 %) 3.6 Basophils % (0.0 - 2.0 %) 0.6 Absolute Granulocytes (1.4 - 6.5 /CUMM) 6.1 Absolute Lymphocytes (1.2 - 3.4 /CUMM) 1.5 Absolute Monocytes (0.10 - 0.60 /CUMM) 0.7 H Absolute Eosinophils (0.0 - 0.7 /CUMM) 0.3 Absolute Basophils (0.0 - 0.2 /CUMM) 0 PUBS MCHC (33.0 - 37.0 G/DL) 33.2 04/12 04/12 0840 0634 Chemistry Sodium (137 - 145 mmol/L) 139 140 Potassium (3.5 - 5.1 mmol/L) 4.3 4.1 Chloride (98 - 107 mmol/L) 101 101 Carbon Dioxide (22 - 30 mmol/L) 26 26 Anion Gap (5 - 16) 11 13 BUN (9 - 20 mg/dL) 72 H 70 H Creatinine (0.7 - 1.2 mg/dL) 7.0 *H 6.9 *H Estimated GFR (>60 ml/min) 8 L 8 L BUN/Creatinine Ratio (7 - 25 %) 10.3 10.1 Calcium (8.4 - 10.2 mg/dL) 7.9 L Phosphorus (2.5 - 4.5 mg/dL) 3.6 Magnesium (1.6 - 2.3 mg/dL) 2.0 Albumin (3.5 - 5.0 g/dL) 2.8 L Hematology CBC w Diff NO MAN DIFF REQ NO MAN DIFF REQ WBC (4.8 - 10.8 /CUMM) 6.8 7.0 RBC (4.70 - 6.10 /CUMM) 2.55 L 2.53 L Hgb (14.0 - 18.0 G/DL) 7.6 L 7.6 L Hct (42 - 52 %) 22.4 L 22.4 L MCV (80.0 - 94.0 FL) 88.0 88.7 MCH (27.0 - 31.0 PG) 29.8 30.1 RDW (11.5 - 14.5 %) 17.7 H 18.3 H Plt Count (130 - 400 /CUMM) 235 233 MPV (7.4 - 10.4 FL) 7.6 7.4 Gran % (42.2 - 75.2 %) 66.2 64.6 Lymphocytes % (20.5 - 51.1 %) 18.8 L 20.2 L Monocytes % (1.7 - 9.3 %) 8.5 8.9 Eosinophils % (0 - 5 %) 5.4 H 5.5 H Basophils % (0.0 - 2.0 %) 1.1 0.8 Absolute Granulocytes (1.4 - 6.5 /CUMM) 4.5 4.5 Absolute Lymphocytes (1.2 - 3.4 /CUMM) 1.3 1.4 Absolute Monocytes (0.10 - 0.60 /CUMM) 0.6 0.6 Absolute Eosinophils (0.0 - 0.7 /CUMM) 0.4 0.4 Absolute Basophils (0.0 - 0.2 /CUMM) 0.1 0.1 PUBS MCHC (33.0 - 37.0 G/DL) 33.8 34.0 04/11 2302 Hematology CBC w Diff NO MAN DIFF REQ WBC (4.8 - 10.8 /CUMM) 7.1 RBC (4.70 - 6.10 /CUMM) 2.51 L Hgb (14.0 - 18.0 G/DL) 7.4 *L Hct (42 - 52 %) 22.0 L MCV (80.0 - 94.0 FL) 87.6 MCH (27.0 - 31.0 PG) 29.6 RDW (11.5 - 14.5 %) 17.6 H Plt Count (130 - 400 /CUMM) 240 MPV (7.4 - 10.4 FL) 7.6 Gran % (42.2 - 75.2 %) 63.1 Lymphocytes % (20.5 - 51.1 %) 22.0 Monocytes % (1.7 - 9.3 %) 8.8 Eosinophils % (0 - 5 %) 5.3 H Basophils % (0.0 - 2.0 %) 0.8 Absolute Granulocytes (1.4 - 6.5 /CUMM) 4.5 Absolute Lymphocytes (1.2 - 3.4 /CUMM) 1.6 Absolute Monocytes (0.10 - 0.60 /CUMM) 0.6 Absolute Eosinophils (0.0 - 0.7 /CUMM) 0.4 Absolute Basophils (0.0 - 0.2 /CUMM) 0.1 PUBS MCHC (33.0 - 37.0 G/DL) 33.8
[2017-04-14 22:02] VITALS: BP 146/82
[2017-04-15 06:45] VITALS: BP 150/100
--- NOTE | 2017-04-15 07:12 | PN- Housestaff ---
KianBurnham 04/15/17 0711: Subjective Follow-up For: Symptomatic anemia Atypical chest pain.(resolved) End-stage renal disease on dialysis. Tele-Events Since Last Visit: No night events. Sinus rhythm heart rate 6776 Subjective: No overnight events. Patient remained afebrile overnight. Patient seen and examined this morning bedside. He was lying in bed comfortably. He denied any chest pain, short of breath, nausea, vomiting, chills, fever, black stools, abdominal pain and dysuria. Patient will be nothing by mouth today midnight and will go for endoscopy and colonoscopic tomorrow. Review of Systems Constitutional: Reports: no symptoms. EENTM: Reports: no symptoms. Cardiovascular: Reports: no symptoms. Respiratory: Reports: no symptoms. Gastrointestinal: Reports: no symptoms. Genitourinary: Reports: no symptoms. Musculoskeletal: Reports: no symptoms. Neurological/Psychological: Reports: no symptoms. Objective Last 24 Hrs of Vital Signs/I&O Vital Signs Date Time Temp Pulse Resp B/P B/P Pulse O2 O2 Flow FiO2 Mean Ox Delivery Rate 04/15 0645 97.7 96 20 150/100 96 Room Air 04/14 2202 98.5 65 20 146/82 99 Room Air 04/14 2148 84 146/82 04/14 2148 84 146/82 04/14 1450 98.1 74 20 144/80 97 Room Air 04/14 1305 80 182/98 04/14 1258 86 182/98 04/14 1258 86 182/98 04/14 1256 86 182/98 Intake & Output 04/15 0800 04/15 0000 04/14 1600 Intake Total 510 360 240 Output Total 4000 Balance 510 360 -3760 Intake, IV 10 10 Intake, Oral 500 350 240 Output, 4000 Dialysate Patient 209 lb Weight Weight Standing Scale Measurement Method Physical Exam General Appearance: Alert, Oriented X3, Cooperative, No Acute Distress Skin Temp/Moisture Exam: Warm/Dry HEENT: Atraumatic, PERRLA, EOMI Neck: Supple Cardiovascular: Normal S1, Normal S2 Lungs: Clear to Auscultation Abdomen: Soft, No Tenderness Neurological: Normal Speech, Strength at 5/5 X4 Ext, Normal Tone, Sensation Intact Assessment/Plan Assessment: 61 yo M active smoker with pmhx of ESRD on HD, HFrEF (EF 45-50%) HTN, HLD, bipolar disorder, asthma/COPD, and seizure history presented with dyspnea and acute blood loss anemia with guaiac positive stool. Acute blood loss anemia: with reported melena/guiaic positive GI bleed: -H&H on presentation 5.5/16.1 -s/p 6 units pRBC transfusion -CBC currently 8.7/26.2 -GI consultation planned for EGD/colonoscopy Sunday -Bowel prep with 1 gallon Golytely today. -IV Protonix -No NSAIDs -Continue Epogen for chronic anemia from ESRD Atypical chest pain: -Troponins negative for myocardial ischemia -Reportedly negative coronary angiography in 02/2017 -Takotsubo cardiomyopathy for HFrEF echo LVEF 45% -Follow up cardiology recommendations ESRD on HD: -Nephrology consultation -Continue regular hemodialysis Sunday//Sunday -Trend renal function -Continue nephrovitamin, sevalamer, sensipar and epogen injection History of bipolar disorder: -Continue the benztropine, aripiprazole and seroquel. HFrEF: -Continue the Lasix, aspirin, propranolol, labetalol, and hydralazine HLD: -Continue Lipitor for hyperlipidemia History of seizures: -Continue oxcarbazepine and lamotrigine Dialysis diet 2g sodium and 2g potassium, water restriction to 1200ml DVT prophylaxis: Mechanical and s/c heparin CODE STATUS: Full code Problem List: 1. Atypical chest pain 2. Symptomatic anemia 3. ESRD (end stage renal disease) on dialysis Pain Ratin Pain Location: none Pain Goal: Remain pain free Pain Plan: tylenol for mild pain Tomorrow's Labs & Rationales: cbc/bep Amilcar FLEMING,[facility] 04/15/17 1245: Attending MD Review Statement Attending Statement Attending MD Statement: examined this patient, discuss w/resident/PA/MARKETING ASSOCIATE, agreed w/resident/PA/MARKETING ASSOCIATE, discussed with family, reviewed EMR data (avail), discussed with nursing, discussed with case mgmt, reviewed images, amended to note Attending Assessment/Plan: Agree with above 1. Shortness of Breath: Likely multifactorial due to COPD, with prob congestive heart failure, question aspiration 2. Acute on chronic anemia. Do not have documentation of EGD and/or colonoscopy done at [facility] 3. Coronary artery disease -- has had 2 cardiac catheterizations which were negative for coronary artery disease. 4. Bipolar disorder 5. COPD 6. History of acute systolic congestive heart failure 7. End-stage renal disease on hemodialysis REC COlonoscopy on sunday Watch hct bowel prep for am cont to watch for chf neprho onboard for dialysis Cont meds for bipolar COnt lasix
[2017-04-15 08:29] LABS: ABSOLUTE BASOPHIL COUNT 0.1 /CUMM (0.0-0.2); ABSOLUTE EOSINOPHIL COUNT 0.4 /CUMM (0.0-0.7); ABSOLUTE GRANULOCYTE CT 6.2 /CUMM (1.4-6.5); ABSOLUTE LYMPH COUNT 1.5 /CUMM (1.2-3.4); ABSOLUTE MONOCYTE COUNT 0.7 /CUMM (0.10-0.60); EOSINOPHIL % 4.6 % (0-5); GRANULOCYTE % 69.5 % (42.2-75.2); HEMATOCRIT 25.6 % (42-52); MEAN CORPUSCULAR HGB 30.2 PG (27.0-31.0); MEAN CORPUSCULAR HGB CONC 33.3 G/DL (33.0-37.0); MEAN CORPUSCULAR VOLUME 90.6 FL (80.0-94.0); MEAN PLATELET VOLUME 7.5 FL (7.4-10.4); PLATELET COUNT 392 /CUMM (130-400); RED BLOOD CELL CT 2.83 /CUMM (4.70-6.10); WHITE BLOOD CELL COUNT 8.9 /CUMM (4.8-10.8)
[2017-04-15 14:07] VITALS: BP 148/90
--- NOTE | 2017-04-15 14:41 | Discharge Summary ---
See Addendum Visit Information Visit Dates Admission Date: 04/09/17 Hospital Course Course Attending Physician: Ashok Durand MD Primary Care Physician: Kizzy FLEMING,Ashok [facility] Course: 61 YO M active smoker with past medical history of ESRD on dialysis, HFrEF (EF 45-50% on 02/06/17) hypertension, hyperlipidemia, bipolar disorder, status post recent cardiac catheter and stents at [facility] in February 2017, cardiac arrest while in the catheter lab requiring ICU stay presented to the hospital with chief complaint of worsening shortness of breath for the last 2-3 days. In the ED vitals temperature 98.1, pulse 105, respiration 22, blood pressure 165 /92, saturating 96% on room air Labs :H&H of 5. 5/16.1( baseline around 9 ), sodium 135, potassium 4.5, creatinine 5.8(baseline), BUN 94, alkaline phosphatase 182, troponin 0.03 EKG normal sinus rhythm with no specific ST-T wave changes. Patient received 3 blood transfusion in ED. Symptomatic anemia: Patient presented with anemia and having exertional dyspnea due to anemia. Patient's anemia is multifactorial considering his history of end-stage renal disease. Patient received 3 packs red blood cell transfusion in ED. Even after the blood transfusion patient's H&H remained low then 7. Patient received 2 more blood transfusion on telemetry floor and his H&H improved. To rule out the possibility of hemolytic anemia workup was done that was negative. Considering patient's complaint of black stools GI consultation was obtained. GI recommended endoscopy and colonoscopy that were negative for any acute bleeding site. Patient will follow GI as outpatient. Patient's exertional dyspnea had improved after the improvement of H&H. Atypical chest pain: Patient presented with atypical chest pain. Serial troponins and EKGs were negative for any ischemic cardiac injury. Considering the patient's history of coronary artery disease cardiology consult was obtained. His record related to coronary artery disease was obtained from [facility] that showed negative cardiac catheterization that was done recently. He didn't get any stent placement considering his negative cardiac catheterizations. Patient will follow the cardiology as outpatient for further recommendations. End-stage renal disease on dialysis: She had a history of end-stage renal disease and he is getting dialysis 3 times in a week on Sunday and Saturday. Nephrology consult was obtained who agreed to continue the renal dialysis. During every renal dialysis is getting Epogen. History of bipolar disorder and depression; Considering patient's history of bipolar disorder and depression with continued his home medications and also we obtained a psychiatry consult. History of hypertension: Patient's home medications were continued. DVT prophylaxis: Mechanical CODE STATUS: Full code Allergies: Coded Allergies: chlorpromazine (From THORAZINE) (Severe, ANAPHYLAXIS 02/19/17) trifluoperazine (From STELAZINE) (Severe, ANAPHYLAXIS 10/03/15) lithium (PER PT "KILLED MY KIDNEYS" 01/24/17) venom-honey bee (BEE VENOM (HONEY BEE)) (UNKNOWN 10/03/15) Significant Procedures: Colonoscopy 04/16/2017: Colonoscopy Procedure Procedure Date: 04/16/17 Procedure Type: colonoscopy (following EGD) Lining Vamper: Gabino Owen M.D. ASA Classification: III Indications: GI bleed Anemia Instrument (Colonoscope): single channel Meds Received: MAC Patient's Tolerance: good Complications: none Extent Reached: terminal ileum Prep: poor Procedure: Following the initial EGD, the patient was placed in the Barrett position, and medicated. Examination of the rectum revealed external hemorrhoids. The Olympus high-definition variable stiffness colonoscope was inserted through the anus and advanced to the terminal ileum. Retroflexion was performed in order to examine the rectum. Careful examination was performed. There was adequate withdrawal time. Findings: There were mildly enlarged internal hemorrhoids. The rectum was otherwise normal. From sigmoid to cecum no lesions were seen aside from several excrescences in the transverse colon and ascending colon which were left intact. Polyps may been obscured. There were no evident vascular lesions such as angiodysplasias. The terminal ileum was normal. Impression: * No bleeding site identified; incomplete preparation Recommendations: * Follow-up CBC * Consider capsule endoscopy of small bowel * Obtain reports of EGD and colonoscopy recently performed at [facility]; they are not in the chart as of today. Endoscopy on 04/16/2017: Endoscopy Procedure Procedure Date: 04/16/17 Procedure Type: EGD (preceding colonoscopy) Lining Vamper: Gabino Owen M.D. ASA Classification: III Indications: GI bleed Anemia Instrument: diagnostic gastroscope Meds Received: MAC Patient's Tolerance: good Complications: none Extent Reached: second part of duodenum Procedure: Informed consent for EGD and colonoscopy was obtained over the telephone from the patient's conservator. The patient was medicated. Lidocaine pharyngeal spray was administered. Pulse oximetry, blood pressure and cardiac monitoring were performed continuously throughout the procedure. The Olympus high- definition gastroscope was inserted into the mouth and advanced to the duodenum. Retroflexion was performed within the stomach to examine the cardia. Careful examination was performed. Findings: The esophagus had normal caliber and contour. The mucosa was intact throughout. There were no varices. At the GE junction (47 cm) was a small focus of several tiny raised red blebs, consistent with focal trauma. There was no hiatal hernia. The stomach had normal distention and active peristalsis. The cardia was normal. There was a mildly enlarged erythematous fold on the lesser curvature the proximal fundus. There were no varices. The mucosa and folds of the stomach were otherwise normal except for prepyloric edema/enlarged folds. Careful search did not reveal any erosions, or ulcers. The pyloric channel was normal. The duodenal bulb was normal. Mucosa and folds of the duodenal sweep were normal. Of note, there was no old or fresh blood within the gastric cavity and duodenum. Impression: * Focal trauma GE junction (possibly secondary to nasogastric tube, etc.) * Prepyloric edema * No bleeding site identified Recommendations: * A colonoscopy was performed; see report/recommendations Pertinent Lab Results: Chest x-ray on 04/09/2017: IMPRESSION: Mild patchy opacity in the right lower lobe is nonspecific and may be due to pneumonia, aspiration, or atelectasis. Clinically correlate. Suspected small subpulmonic pleural effusion on the right side. Abdominal/pelvic CT scan on 04/10/17: IMPRESSION: No intra-abdominal or retroperitoneal hematoma. Atrophic kidneys with multiple bilateral renal lesions. Many of these measure slightly higher than simple fluid and could represent proteinaceous or hemorrhagic cysts. These do demonstrate mild increase in size compared to 09/16/2015. There is symmetric perinephric stranding noted without hematoma. Small right pleural effusion WBC count 7.3, hemoglobin 8.2, hematocrit 24.2, platelet count 394, sodium 133, potassium 5.0, creatinine 8.5, BUN 49, BUN/creatinine ratio 5.8, magnesium 2.0, phosphorous 3.4 Disposition Summary Disposition Principal Diagnosis: Symptomatic anemia Atypical chest pain Additional Diagnosis: End-stage renal disease on dialysis Hypertension Bipolar disorder/depression Discharge Instructions General Discharge Information Code Status: Full Code Patient's Diet: Renal diet Patient's Activity: Self-limited Follow-Up Instructions/Appts: Follow up with her primary care physician in one week Follow-up with utility gelatin maker in 1 week. Copies To: Ashok Durand MD
[2017-04-15 22:00] VITALS: BP 158/70
[2017-04-15 22:38] VITALS: BP 158/90
[2017-04-16] VITALS (8 sets, daily range): BP systolic 134–168; BP diastolic 78–102
--- NOTE | 2017-04-16 06:30 | PN- Housestaff ---
Subjective Follow-up For: Symptomatic anemia Atypical chest(resolved) End-stage renal disease on dialysis. Tele-Events Since Last Visit: Noted events patient remained in sinus rhythm heart rate [id number] Subjective: No night events patient remained afebrile overnight. Patient seen and examined this morning. He was lying in bed comfortably day patient is nothing by mouth and going colonoscopy and endoscopy today. Patient denied any chest pain, short of breath, nausea, vomiting, chills, fever, abdominal pain dysuria. Review of Systems Constitutional: Reports: see HPI. Objective Last 24 Hrs of Vital Signs/I&O Vital Signs Date Time Temp Pulse Resp B/P B/P Pulse O2 O2 Flow FiO2 Mean Ox Delivery Rate 04/16 1100 74 158/96 04/16 1000 74 158/96 04/16 0900 97.4 74 20 160/100 04/16 0900 97.4 74 18 162/98 98 Room Air Room Air 04/16 0857 74 162/98 04/16 0857 74 162/98 04/16 0857 74 162/98 04/16 0734 97.3 72 20 160/100 98 Room Air 04/15 2238 98.0 78 20 158/90 98 Room Air 04/15 2200 70 20 158/70 04/15 2042 81 170/100 04/15 2041 81 170/100 04/15 1407 97.9 80 20 148/90 98 Room Air Intake & Output 04/16 1600 04/16 0800 04/16 0000 Intake Total 240 Output Total Balance 240 Intake, Oral 240 Number 3 1 Bowel Movements Patient 213 lb Weight Weight Chair scale Measurement Method Physical Exam General Appearance: Alert, Oriented X3, Cooperative, No Acute Distress Skin Temp/Moisture Exam: Warm/Dry HEENT: Atraumatic, PERRLA, EOMI Neck: Supple Cardiovascular: Normal S1, Normal S2 Lungs: Clear to Auscultation Abdomen: Soft, No Tenderness Neurological: Normal Speech, Strength at 5/5 X4 Ext, Normal Tone, Sensation Intact Extremities: No Edema Assessment/Plan Assessment: 61 yo M active smoker with pmhx of ESRD on HD, HFrEF (EF 45-50%) HTN, HLD, bipolar disorder, asthma/COPD, and seizure history presented with dyspnea and acute blood loss anemia with guaiac positive stool. Acute blood loss anemia: with reported melena/guiaic positive GI bleed: -H&H on presentation 5.5/16.1 -s/p 6 units pRBC transfusion -CBC currently 8.7/26.2 -GI consultation planned for EGD/colonoscopy Sunday -Bowel prep with 1 gallon Golytely today. -IV Protonix -No NSAIDs -Continue Epogen for chronic anemia from ESRD -Nothing by mouth and going for colonoscopy and endoscopy today. We'll follow the results, GI recommendations. Atypical chest pain: -Troponins negative for myocardial ischemia -Reportedly negative coronary angiography in 02/2017 -Takotsubo cardiomyopathy for HFrEF echo LVEF 45% -Follow up cardiology recommendations ESRD on HD: -Nephrology consultation -Continue regular hemodialysis Sunday//Sunday -Trend renal function -Continue nephrovitamin, sevalamer, sensipar and epogen injection History of bipolar disorder: -Continue the benztropine, aripiprazole and seroquel. HFrEF: -Continue the Lasix, aspirin, propranolol, labetalol, and hydralazine HLD: -Continue Lipitor for hyperlipidemia History of seizures: -Continue oxcarbazepine and lamotrigine Dialysis diet 2g sodium and 2g potassium, water restriction to 1200ml DVT prophylaxis: Mechanical and s/c heparin CODE STATUS: Full code Problem List: 1. Atypical chest pain 2. Symptomatic anemia 3. ESRD (end stage renal disease) on dialysis Pain Ratin Pain Location: NONE Pain Goal: Remain pain free Pain Plan: TYLENOL FOR MILD PAIN Tomorrow's Labs & Rationales: CBC/ BEP
[2017-04-16 08:03] LABS: ABSOLUTE BASOPHIL COUNT 0.1 /CUMM (0.0-0.2); ABSOLUTE EOSINOPHIL COUNT 0.4 /CUMM (0.0-0.7); ABSOLUTE GRANULOCYTE CT 6.2 /CUMM (1.4-6.5); ABSOLUTE LYMPH COUNT 1.3 /CUMM (1.2-3.4); ABSOLUTE MONOCYTE COUNT 0.6 /CUMM (0.10-0.60); BASOPHIL % 0.8 % (0.0-2.0); EOSINOPHIL % 4.3 % (0-5); MEAN CORPUSCULAR HGB 30.4 PG (27.0-31.0); MEAN CORPUSCULAR HGB CONC 33.7 G/DL (33.0-37.0); MEAN CORPUSCULAR VOLUME 90.2 FL (80.0-94.0); MEAN PLATELET VOLUME 7.7 FL (7.4-10.4); PLATELET COUNT 355 /CUMM (130-400); RBC DISTRIBUTION WIDTH 18.8 % (11.5-14.5); RED BLOOD CELL CT 2.78 /CUMM (4.70-6.10); WHITE BLOOD CELL COUNT 8.6 /CUMM (4.8-10.8)
--- NOTE | 2017-04-16 10:00 | PN- Nephrology ---
Assessment/Plan Assessment: End-stage renal disease: Next dialysis tomorrow as as per Sunday schedule. His listed target weight of 100 kg will need to be lowered as he has been coming off of dialysis closer to 92-93 kg. Anemia: Due to recent GI bleed superimposed on anemia of chronic kidney disease. H&H is stable. No heparin with dialysis. Receives epogen 3x/week with each HD. Awaiting colonoscopy/EGD. Suggestion: Will continue HD Sunday, with Epogen at each session Next dialysis tomorrow AM when PO diet resumed be sure on renal diet Subjective Subjective: No acute events prepped for colonoscopy which he is awaiting last dialyzed sunday Review of Systems: no sob/cp no fever/chills Objective Vital Signs and I&Os Vital Signs Date Time Temp Pulse Resp B/P B/P Pulse O2 O2 Flow FiO2 Mean Ox Delivery Rate 04/16 0900 97.4 74 20 160/100 04/16 0900 97.4 74 18 162/78 98 Room Air Room Air 04/16 0857 74 162/98 04/16 0857 74 162/98 04/16 0857 74 162/98 04/16 0734 97.3 72 20 160/100 98 Room Air 04/15 2238 98.0 78 20 158/90 98 Room Air 04/15 2200 70 20 158/70 04/15 2042 81 170/100 04/15 2041 81 170/100 04/15 1407 97.9 80 20 148/90 98 Room Air Intake & Output 04/16 1600 04/16 0400 04/15 1600 04/15 0400 04/14 1600 04/14 0400 Intake Total 240 990 360 360 480 Output Total 4000 Balance 240 990 360 -3640 480 Intake, IV 10 10 Intake, Oral 240 980 350 360 480 Number 3 1 Bowel Movements Output, 4000 Dialysate Patient 213 lb 208 lb 209 lb Weight Weight Chair scale Bed scale Standing Scale Measurement Method Physical Exam: General: NAD, A+O x3. HEENT: NC/AT. No icterus. Moist mucosa Neck: negative for LA, JVD CV: RRR, no m/r/g Pulm: CTAB, no rales Abd: soft, NT Lower Ext: neg edema Upper Ext: LUE AVF +thrill/bruit Back: negative for CVA tenderness Neuro: neg tremor, asterixis Current Medications: Current Medications Sig/Grace Start time Last Medication Dose Route Stop Time Status Admin Acetaminophen 325 MG Q6-PRN PRN 04/09 2245 AC 04/10 PO 0239 Albuterol Sulfate 2 PUF Q4P PRN 04/09 2300 AC INH Aspirin Buffered 81 MG 0800 12 0800 AC 04/16 PO 0856 Atorvastatin Calcium 40 MG 1700 04/10 1700 AC 04/15 PO 1600 Benztropine Mesylate 0.5 MG BID 04/10 1000 AC 04/16 PO 0857 Bisacodyl 10 MG ONE TIME ONE 04/15 2000 DC 04/15 PO 04/15 2001 203 Cinacalcet 30 MG DAILY 04/10 1000 AC 04/16 PO 0857 Epoetin Florentino 8,000 UNIT TUES THURS SAT PRN 04/10 1500 AC IV Furosemide 80 MG 0800,2200 04/10 0800 AC 04/16 PO 0857 Gabapentin 300 MG AT BEDTIME 04/10 0215 AC 04/15 PO 2042 Hydralazine HCl 20 MG BID 04/10 1000 AC 04/16 PO 0857 Labetalol HCl 100 MG BID 04/10 1000 AC 04/16 PO 0857 Lamotrigine 150 MG DAILY 04/10 1000 AC 04/16 PO 0858 Lorazepam 0 Q1P PRN 04/11 0045 AC IV Multivitamins 1 TAB 1000 04/10 1000 AC 04/16 PO 0857 Oxcarbazepine 600 MG BID 04/10 1000 AC 04/16 PO 0857 Pantoprazole Sodium 40 MG DAILY 04/10 1000 AC 04/16 IV 0859 Polyethylene Glycol 0.5 GAL ONCE ONE 04/16 0400 DC 04/16 PO 04/16 0401 0354 Polyethylene Glycol 0.5 GAL ONE TIME ONE 04/15 1600 DC 04/15 PO 04/15 1601 1602 Propranolol HCl 10 MG BID 04/10 1000 AC 04/16 PO 0857 Quetiapine Fumarate 400 MG AT BEDTIME 04/10 0215 AC 04/15 PO 2042 Sevelamer Carbonate 2,400 MG TIDAC 04/10 0800 AC 04/15 PO 1347 Tiotropium Jensen 1 PUF DAILY 04/10 1000 AC 04/16 INH 0940 Results Pertinent Lab Results: Laboratory Tests 04/16 04/15 0633 0635 Chemistry Sodium (137 - 145 mmol/L) 132 L 144 Potassium (3.5 - 5.1 mmol/L) 5.0 4.1 Chloride (98 - 107 mmol/L) 95 L 101 Carbon Dioxide (22 - 30 mmol/L) 27 26 Anion Gap (5 - 16) 10 17 H BUN (9 - 20 mg/dL) 35 H 26 H Creatinine (0.7 - 1.2 mg/dL) 6.8 *H 5.2 *H Estimated GFR (>60 ml/min) 8 L 11 L BUN/Creatinine Ratio (7 - 25 %) 5.1 L 5.0 L Calcium (8.4 - 10.2 mg/dL) 8.4 Phosphorus (2.5 - 4.5 mg/dL) 2.3 L Magnesium (1.6 - 2.3 mg/dL) 1.8 Hematology CBC w Diff NO MAN DIFF REQ NO MAN DIFF REQ WBC (4.8 - 10.8 /CUMM) 8.6 8.9 RBC (4.70 - 6.10 /CUMM) 2.78 L 2.83 L Hgb (14.0 - 18.0 G/DL) 8.4 L 8.5 L Hct (42 - 52 %) 25.0 L 25.6 L MCV (80.0 - 94.0 FL) 90.2 90.6 MCH (27.0 - 31.0 PG) 30.4 30.2 RDW (11.5 - 14.5 %) 18.8 H 19.0 H Plt Count (130 - 400 /CUMM) 355 392 MPV (7.4 - 10.4 FL) 7.7 7.5 Gran % (42.2 - 75.2 %) 72.0 69.5 Lymphocytes % (20.5 - 51.1 %) 15.4 L 17.3 L Monocytes % (1.7 - 9.3 %) 7.5 7.6 Eosinophils % (0 - 5 %) 4.3 4.6 Basophils % (0.0 - 2.0 %) 0.8 1.0 Absolute Granulocytes (1.4 - 6.5 /CUMM) 6.2 6.2 Absolute Lymphocytes (1.2 - 3.4 /CUMM) 1.3 1.5 Absolute Monocytes (0.10 - 0.60 /CUMM) 0.6 0.7 H Absolute Eosinophils (0.0 - 0.7 /CUMM) 0.4 0.4 Absolute Basophils (0.0 - 0.2 /CUMM) 0.1 0.1 PUBS MCHC (33.0 - 37.0 G/DL) 33.7 33.3 12/16 0655 Chemistry Sodium (137 - 145 mmol/L) 139 Potassium (3.5 - 5.1 mmol/L) 4.4 Chloride (98 - 107 mmol/L) 100 Carbon Dioxide (22 - 30 mmol/L) 27 Anion Gap (5 - 16) 12 BUN (9 - 20 mg/dL) 43 H Creatinine (0.7 - 1.2 mg/dL) 7.5 *H Estimated GFR (>60 ml/min) 7 L BUN/Creatinine Ratio (7 - 25 %) 5.7 L Hematology CBC w Diff NO MAN DIFF REQ WBC (4.8 - 10.8 /CUMM) 10.3 RBC (4.70 - 6.10 /CUMM) 2.90 L Hgb (14.0 - 18.0 G/DL) 8.7 L Hct (42 - 52 %) 26.2 L MCV (80.0 - 94.0 FL) 90.3 MCH (27.0 - 31.0 PG) 30.1 RDW (11.5 - 14.5 %) 18.7 H Plt Count (130 - 400 /CUMM) 345 MPV (7.4 - 10.4 FL) 7.6 Gran % (42.2 - 75.2 %) 70.8 Lymphocytes % (20.5 - 51.1 %) 15.9 L Monocytes % (1.7 - 9.3 %) 8.0 Eosinophils % (0 - 5 %) 4.5 Basophils % (0.0 - 2.0 %) 0.8 Absolute Granulocytes (1.4 - 6.5 /CUMM) 7.3 H Absolute Lymphocytes (1.2 - 3.4 /CUMM) 1.6 Absolute Monocytes (0.10 - 0.60 /CUMM) 0.8 H Absolute Eosinophils (0.0 - 0.7 /CUMM) 0.5 Absolute Basophils (0.0 - 0.2 /CUMM) 0.1 PUBS MCHC (33.0 - 37.0 G/DL) 33.3
--- NOTE | 2017-04-16 10:31 | PN- Psychiatry ---
Assessment/Plan Impression: Identifying Info: 61-year-old single conserved male well known to this service presents to [place] emergency department on 04/09/2017 which complaint of shortness of breath. Seen today on telemetry. SUBJECTIVE Patient presents today again without psychiatric complaint. States he is frustrated that he has not had his conoscopy yet. Brief ROS Gait: Not observed Sleep: Adequate Appetite: Adequate OBJECTIVE Mental Status Exam Presentation/Appearance: Calm and cooperative with evaluation. Lying in bed. Orientation: x3 Sensorium: Awake and alert Eye contact: Appropriate Affect: Somewhat blunted Mood: "Fine, stable" Depression: Denies Anxiety: Denies Thought Content: - Denies SI/HI, AH/VH, PI. States and also believes they will not kill themselves. - Denies Hopeless/Helpless Thoughts Thought Process: Linear Associations: Appropriate Speech: Normal tone and rate, short responses Judgment: Fair Insight: Fair Cognition: Memory: Grossly intact Attention/Concentration: Grossly intact Fund of Knowledge: Adequate Abstractions: Not assessed MMSE: Not completed ASSESSMENT 61-year-old conserved single male with history of severe bipolar disorder requiring multiple long-term hospitalizations currently presents as psychiatrically asymptomatic. While in hospital it would be prudent to continue psychotropics as taken at home as medically able to maintain stability. Diagnosis Bipolar I disorder, severe, most recent episode manic by history Alcohol use disorder by history Cannabis use disorder A total of 30 minutes was spent with the patient with more than 50% of the time spent in counseling and/or coordination of care. Suggestion: - Continue psychtropics as currently ordered. - We will continue to collect collateral, work with Social Work, [facility], and Care for dispo. Thank you for including psychiatry in this case we'll continue to follow. Subjective Subjective: as above Objective Last 24 Hrs of Vital Signs/I&O Current Medications Sig/Grace Start time Last Medication Dose Route Stop Time Status Admin Acetaminophen 325 MG Q6-PRN PRN 04/09 2245 AC 04/10 PO 0239 Albuterol Sulfate 2 PUF Q4P PRN 04/09 2300 AC INH Aspirin Buffered 81 MG 0800 04/10 0800 AC 04/16 PO 0856 Atorvastatin Calcium 40 MG 1700 04/10 1700 AC 12 PO 1600 Benztropine Mesylate 0.5 MG BID 04/10 1000 AC 04/16 PO 0857 Bisacodyl 10 MG ONE TIME ONE 04/15 2000 DC 04/15 PO 04/15 Cinacalcet 30 MG DAILY 04/10 1000 AC 04/16 PO 0857 Epoetin Florentino 8,000 UNIT TUES THURS SAT PRN 04/10 1500 AC IV Furosemide 80 MG 0800,2200 04/10 0800 AC 04/16 PO 0857 Gabapentin 300 MG AT BEDTIME 04/10 0215 AC 04/15 PO 2042 Hydralazine HCl 20 MG BID 04/10 1000 AC 04/16 PO 0857 Labetalol HCl 100 MG BID 04/10 1000 AC 04/16 PO 0857 Lamotrigine 150 MG DAILY 04/10 1000 AC 04/16 PO 0858 Lorazepam 0 Q1P PRN 04/11 0045 AC IV Multivitamins 1 TAB 1000 04/10 1000 AC 04/16 PO 0857 Oxcarbazepine 600 MG BID 04/10 1000 AC 04/16 PO 0857 Pantoprazole Sodium 40 MG DAILY 04/10 1000 AC 04/16 IV 0859 Polyethylene Glycol 0.5 GAL ONCE ONE 04/16 0400 DC 04/16 PO 04/16 0401 0354 Polyethylene Glycol 0.5 GAL ONE TIME ONE 04/15 1600 DC 04/15 PO 04/15 1601 1602 Propranolol HCl 10 MG BID 04/10 1000 AC 04/16 PO 0857 Quetiapine Fumarate 400 MG AT BEDTIME 04/10 0215 AC 04/15 PO 2042 Sevelamer Carbonate 2,400 MG TIDAC 04/10 0800 AC 04/15 PO 1347 Tiotropium Brandon 1 PUF DAILY 04/10 1000 AC 04/16 INH 0940 Laboratory Tests 04/16/17 0633: Anion Gap 10, Estimated GFR 8 L, BUN/Creatinine Ratio 5.1 L, CBC w Diff NO MAN DIFF REQ, RBC 2.78 L, MCV 90.2, MCH 30.4, RDW 18.8 H, MPV 7.7, Gran % 72.0, Lymphocytes % 15.4 L, Monocytes % 7.5, Eosinophils % 4.3, Basophils % 0.8, Absolute Granulocytes 6.2, Absolute Lymphocytes 1.3, Absolute Monocytes 0.6, Absolute Eosinophils 0.4, Absolute Basophils 0.1, PUBS MCHC 33.7 04/15/17 0635: Anion Gap 17 H, Estimated GFR 11 L, BUN/Creatinine Ratio 5.0 L, Calcium 8.4, Phosphorus 2.3 L, Magnesium 1.8, CBC w Diff NO MAN DIFF REQ, RBC 2.83 L, MCV 90.6, MCH 30.2, RDW 19.0 H, MPV 7.5, Gran % 69.5, Lymphocytes % 17.3 L, Monocytes % 7.6, Eosinophils % 4.6, Basophils % 1.0, Absolute Granulocytes 6.2, Absolute Lymphocytes 1.5, Absolute Monocytes 0.7 H, Absolute Eosinophils 0.4, Absolute Basophils 0.1, PUBS MCHC 33.3 04/14/17 0655: Anion Gap 12, Estimated GFR 7 L, BUN/Creatinine Ratio 5.7 L, CBC w Diff NO MAN DIFF REQ, RBC 2.90 L, MCV 90.3, MCH 30.1, RDW 18.7 H, MPV 7.6, Gran % 70.8, Lymphocytes % 15.9 L, Monocytes % 8.0, Eosinophils % 4.5, Basophils % 0.8, Absolute Granulocytes 7.3 H, Absolute Lymphocytes 1.6, Absolute Monocytes 0.8 H, Absolute Eosinophils 0.5, Absolute Basophils 0.1, PUBS MCHC 33.3 Vital Signs Date Time Temp Pulse Resp B/P B/P Pulse O2 O2 Flow FiO2 Mean Ox Delivery Rate 04/16 0900 97.4 74 20 160/100 04/16 0900 97.4 74 18 162/78 98 Room Air Room Air 04/16 0857 74 162/98 04/16 0857 74 162/98 04/16 0857 74 162/98 04/16 0734 97.3 72 20 160/100 98 Room Air 04/15 2238 98.0 78 20 158/90 98 Room Air 04/15 2200 70 20 158/70 04/15 2042 81 170/100 04/15 2041 81 170/100 04/15 1407 97.9 80 20 148/90 98 Room Air Intake & Output 04/16 1600 04/16 0800 04/16 0000 Intake Total 240 Output Total Balance 240 Intake, Oral 240 Number 3 1 Bowel Movements Patient 213 lb Weight Weight Chair scale Measurement Method
--- NOTE | 2017-04-16 10:48 | PN- Att Addend ---
Attending Addendum Attending Brief Note Lying in bed in no acute distress. BP a little high this morning, No changes on physical. Evaluation continues (GI) , also continue HD. Intake & Output 04/16 1600 04/16 0400 04/15 1600 04/15 0400 04/14 1600 04/14 0400 Intake Total 240 990 360 360 480 Output Total 4000 Balance 240 990 360 -3640 480 Intake, IV 10 10 Intake, Oral 240 980 350 360 480 Number 3 1 Bowel Movements Output, 4000 Dialysate Patient 213 lb 208 lb 209 lb Weight Weight Chair scale Bed scale Standing Scale Measurement Method Current Medications Sig/Grace Start time Last Medication Dose Route Stop Time Status Admin Acetaminophen 325 MG Q6-PRN PRN 04/09 2245 AC 04/10 PO 0239 Albuterol Sulfate 2 PUF Q4P PRN 04/09 2300 AC INH Aspirin Buffered 81 MG 0800 04/10 0800 AC 04/16 PO 0856 Atorvastatin Calcium 40 MG 1700 04/10 1700 AC 04/15 PO 1600 Benztropine Mesylate 0.5 MG BID 04/10 1000 AC 04/16 PO 0857 Bisacodyl 10 MG ONE TIME ONE 04/15 2000 DC 04/15 PO 04/15 Cinacalcet 30 MG DAILY 04/10 1000 AC 04/16 PO 0857 Epoetin Florentino 8,000 UNIT TUES THURS SAT PRN 04/10 1500 AC IV Furosemide 80 MG 0800,2200 04/10 0800 AC 04/16 PO 0857 Gabapentin 300 MG AT BEDTIME 04/10 0215 AC 04/15 PO 2042 Hydralazine HCl 20 MG BID 04/10 1000 AC 04/16 PO 0857 Labetalol HCl 100 MG BID 04/10 1000 AC 04/16 PO 0857 Lamotrigine 150 MG DAILY 04/10 1000 AC 04/16 PO 0858 Lorazepam 0 Q1P PRN 04/11 0045 AC IV Multivitamins 1 TAB 1000 04/10 1000 AC 04/16 PO 0857 Oxcarbazepine 600 MG BID 04/10 1000 AC 04/16 PO 0857 Pantoprazole Sodium 40 MG DAILY 04/10 1000 AC 04/16 IV 0859 Polyethylene Glycol 0.5 GAL ONCE ONE 04/16 0400 DC 04/16 PO 04/16 0401 0354 Polyethylene Glycol 0.5 GAL ONE TIME ONE 04/15 1600 DC 04/15 PO 04/15 1601 1602 Propranolol HCl 10 MG BID 04/10 1000 AC 04/16 PO 0857 Quetiapine Fumarate 400 MG AT BEDTIME 04/10 0215 AC 04/15 PO 2042 Sevelamer Carbonate 2,400 MG TIDAC 04/10 0800 AC 04/15 PO 1347 Tiotropium [place] 1 PUF DAILY 04/10 1000 AC 04/16 INH 0940 Laboratory Tests 04/16/17 0633: Anion Gap 10, Estimated GFR 8 L, BUN/Creatinine Ratio 5.1 L, CBC w Diff NO MAN DIFF REQ, RBC 2.78 L, MCV 90.2, MCH 30.4, RDW 18.8 H, MPV 7.7, Gran % 72.0, Lymphocytes % 15.4 L, Monocytes % 7.5, Eosinophils % 4.3, Basophils % 0.8, Absolute Granulocytes 6.2, Absolute Lymphocytes 1.3, Absolute Monocytes 0.6, Absolute Eosinophils 0.4, Absolute Basophils 0.1, PUBS MCHC 33.7 04/15/17 0635: Anion Gap 17 H, Estimated GFR 11 L, BUN/Creatinine Ratio 5.0 L, Calcium 8.4, Phosphorus 2.3 L, Magnesium 1.8, CBC w Diff NO MAN DIFF REQ, RBC 2.83 L, MCV 90.6, MCH 30.2, RDW 19.0 H, MPV 7.5, Gran % 69.5, Lymphocytes % 17.3 L, Monocytes % 7.6, Eosinophils % 4.6, Basophils % 1.0, Absolute Granulocytes 6.2, Absolute Lymphocytes 1.5, Absolute Monocytes 0.7 H, Absolute Eosinophils 0.4, Absolute Basophils 0.1, PUBS MCHC 33.3 04/14/17 0655: Anion Gap 12, Estimated GFR 7 L, BUN/Creatinine Ratio 5.7 L, CBC w Diff NO MAN DIFF REQ, RBC 2.90 L, MCV 90.3, MCH 30.1, RDW 18.7 H, MPV 7.6, Gran % 70.8, Lymphocytes % 15.9 L, Monocytes % 8.0, Eosinophils % 4.5, Basophils % 0.8, Absolute Granulocytes 7.3 H, Absolute Lymphocytes 1.6, Absolute Monocytes 0.8 H, Absolute Eosinophils 0.5, Absolute Basophils 0.1, PUBS MCHC 33.3 Vital Signs Date Time Temp Pulse Resp B/P B/P Pulse O2 O2 Flow FiO2 Mean Ox Delivery Rate 04/16 0900 97.4 74 20 160/100 04/16 0900 97.4 74 18 162/78 98 Room Air Room Air 04/16 0857 74 162/98 04/16 0857 74 162/98 04/16 0857 74 162/98 04/16 0734 97.3 72 20 160/100 98 Room Air 04/15 2238 98.0 78 20 158/90 98 Room Air 04/15 2200 70 20 158/70 04/15 2042 81 170/100 04/15 2041 81 170/100 04/15 1407 97.9 80 20 148/90 98 Room Air
--- NOTE | 2017-04-16 16:04 | Proc Note Endoscopy ---
Endoscopy Procedure Procedure Date: 04/16/17 Procedure Type: EGD (preceding colonoscopy) Mallet And Die Cutter: Gabino Owen M.D. ASA Classification: III Indications: GI bleed Anemia Instrument: diagnostic gastroscope Meds Received: MIREILLE Patient's Tolerance: good Complications: none Extent Reached: second part of duodenum Procedure: Informed consent for EGD and colonoscopy was obtained over the telephone from the patient's conservator. The patient was medicated. Lidocaine pharyngeal spray was administered. Pulse oximetry, blood pressure and cardiac monitoring were performed continuously throughout the procedure. The Olympus high- definition gastroscope was inserted into the mouth and advanced to the duodenum. Retroflexion was performed within the stomach to examine the cardia. Careful examination was performed. Findings: The esophagus had normal caliber and contour. The mucosa was intact throughout. There were no varices. At the GE junction (47 cm) was a small focus of several tiny raised red blebs, consistent with focal trauma. There was no hiatal hernia. The stomach had normal distention and active peristalsis. The cardia was normal. There was a mildly enlarged erythematous fold on the lesser curvature the proximal fundus. There were no varices. The mucosa and folds of the stomach were otherwise normal except for prepyloric edema/enlarged folds. Careful search did not reveal any erosions, or ulcers. The pyloric channel was normal. The duodenal bulb was normal. Mucosa and folds of the duodenal sweep were normal. Of note, there was no old or fresh blood within the gastric cavity and duodenum. Impression: * Focal trauma GE junction (possibly secondary to nasogastric tube, etc.) * Prepyloric edema * No bleeding site identified Recommendations: * A colonoscopy was performed; see report/recommendations CC: Kizzy FLEMING,Ashok
--- NOTE | 2017-04-16 16:07 | Proc Note Colonoscopy ---
Colonoscopy Procedure Procedure Date: 04/16/17 Procedure Type: colonoscopy (following EGD) Nurses' Aide: Gabino Owen M.D. ASA Classification: III Indications: GI bleed Anemia Instrument (Colonoscope): single channel Meds Received: MAC Patient's Tolerance: good Complications: none Extent Reached: terminal ileum Prep: poor Procedure: Following the initial EGD, the patient was placed in the Barrett position, and medicated. Examination of the rectum revealed external hemorrhoids. The Olympus high-definition variable stiffness colonoscope was inserted through the anus and advanced to the terminal ileum. Retroflexion was performed in order to examine the rectum. Careful examination was performed. There was adequate withdrawal time. Findings: There were mildly enlarged internal hemorrhoids. The rectum was otherwise normal. From sigmoid to cecum no lesions were seen aside from several excrescences in the transverse colon and ascending colon which were left intact. Polyps may been obscured. There were no evident vascular lesions such as angiodysplasias. The terminal ileum was normal. Impression: * No bleeding site identified; incomplete preparation Recommendations: * Follow-up CBC * Consider capsule endoscopy of small bowel * Obtain reports of EGD and colonoscopy recently performed at [facility]; they are not in the chart as of today. CC: Kizzy FLEMING,Ashok
--- NOTE | 2017-04-17 07:29 | PN- Housestaff ---
Subjective Follow-up For: Symptomatic anemia Atypical chest(resolved) End-stage renal disease on dialysis. Subjective: No overnight events. Patient remained afebrile overnight. Patient seen and examined this morning were sent. He was lying in bed comfortably. He denied any chest pain, short of breath, nausea, vomiting, abdominal pain and dysuria. Patient got the endoscopy and colonoscopy yesterday. Today he went for dialysis. Review of Systems Constitutional: Reports: no symptoms. EENTM: Reports: no symptoms. Cardiovascular: Reports: no symptoms. Respiratory: Reports: no symptoms. Gastrointestinal: Reports: no symptoms. Genitourinary: Reports: no symptoms. Musculoskeletal: Reports: no symptoms. Neurological/Psychological: Reports: no symptoms. Objective Last 24 Hrs of Vital Signs/I&O Vital Signs Date Time Temp Pulse Resp B/P B/P Pulse O2 O2 Flow FiO2 Mean Ox Delivery Rate 04/17 0736 98.5 77 18 119/72 98 Room Air 04/16 2250 97.7 81 16 150/88 94 Room Air 04/16 2057 86 168/90 04/16 2053 86 168/90 04/16 2052 86 168/90 04/16 2051 86 168/90 04/16 1716 98.0 70 18 134/102 96 Room Air Intake & Output 04/17 1600 04/17 0800 04/17 0000 Intake Total 600 480 Output Total Balance 600 480 Intake, Oral 600 480 Patient 227 lb Weight Weight Bed scale Measurement Method Physical Exam General Appearance: Alert, Oriented X3, Cooperative Skin Temp/Moisture Exam: Warm/Dry HEENT: Atraumatic, PERRLA, EOMI Neck: Supple Cardiovascular: Normal S1, Normal S2 Lungs: Clear to Auscultation Abdomen: Soft, No Tenderness Neurological: Normal Speech, Strength at 5/5 X4 Ext, Normal Tone, Sensation Intact Extremities: No Edema Assessment/Plan Assessment: 61 yo M active smoker with pmhx of ESRD on HD, HFrEF (EF 45-50%) HTN, HLD, bipolar disorder, asthma/COPD, and seizure history presented with dyspnea and acute blood loss anemia with guaiac positive stool. Acute blood loss anemia: with reported melena/guiaic positive GI bleed: -H&H on presentation 5.5/16.1 -s/p 6 units pRBC transfusion -CBC currently 8.7/26.2 -GI consultation planned for EGD/colonoscopy Sunday -Bowel prep with 1 gallon Golytely today. -IV Protonix -No NSAIDs -Continue Epogen for chronic anemia from ESRD -Nothing by mouth and going for colonoscopy and endoscopy today. We'll follow the results, GI recommendations. -Patient go the endoscopy and colonoscopy yesterday. On endoscopic there is no bleeding site identified and or colonoscopy incomplete preparation. We will get the records from [place] if any available for last colonoscopy endoscopy. -Patient's H&H is stable we will follow CBC. Atypical chest pain: -Troponins negative for myocardial ischemia -Reportedly negative coronary angiography in 02/2017 -Takotsubo cardiomyopathy for HFrEF echo LVEF 45% -Follow up cardiology recommendations ESRD on HD: -Nephrology consultation -Continue regular hemodialysis Sunday//Sunday -Trend renal function -Continue nephrovitamin, sevalamer, sensipar and epogen injection History of bipolar disorder: -Continue the benztropine, aripiprazole and seroquel. HFrEF: -Continue the Lasix, aspirin, propranolol, labetalol, and hydralazine HLD: -Continue Lipitor for hyperlipidemia History of seizures: -Continue oxcarbazepine and lamotrigine Dialysis diet 2g sodium and 2g potassium, water restriction to 1200ml DVT prophylaxis: Mechanical and s/c heparin CODE STATUS: Full code Problem List: 1. ESRD (end stage renal disease) 2. Atypical chest pain 3. Symptomatic anemia Pain Ratin Pain Location: none Pain Goal: Remain pain free Pain Plan: tylenolf or mild pain Tomorrow's Labs & Rationales: cbc/bep
[2017-04-17 07:36] VITALS: BP 119/72
--- NOTE | 2017-04-17 09:21 | PN- Nephrology ---
Assessment/Plan Assessment: End-stage renal disease: HD in process today as as per Sunday schedule. UF as tolerated; will aim for 3-4L UF. Anemia: Due to recent GI bleed superimposed on anemia of chronic kidney disease. No active bleeding reported via endoscopy. H&H is stable. No heparin with dialysis. Receives epogen 3x/week with each HD. Suggestion: Will continue HD Sunday, with Epogen at each session Pre-dialysis labs were drawn and are pending Subjective Subjective: No acute events Patient feels well Had colonoscopy and endoscopy yesterday Per report no active bleeding was seen Colonoscopy was a poor prep, but there'll be an effort to obtain records from recent colonoscopy at [facility] seen on dialysis today Review of Systems: Denies fever or chills Denies shortness of breath or chest pain Denies nausea or vomiting Objective Vital Signs and I&Os Vital Signs Date Time Temp Pulse Resp B/P B/P Pulse O2 O2 Flow FiO2 Mean Ox Delivery Rate 04/17 0736 98.5 77 18 119/72 98 Room Air 04/16 2250 97.7 81 16 150/88 94 Room Air 04/16 2057 86 168/90 04/16 205 86 168/90 04/16 2052 86 168/90 04/16 2051 86 168/90 04/16 1716 98.0 70 18 134/102 96 Room Air 04/16 1200 97.6 76 18 154/90 04/16 1100 74 158/96 04/16 1000 74 158/96 Intake & Output 04/17 1600 04/17 0400 04/16 1600 04/16 0400 04/15 1600 04/15 0400 Intake Total 600 480 240 990 360 Output Total Balance 600 480 240 990 360 Intake, IV 10 10 Intake, Oral 600 480 240 980 350 Number 3 1 Bowel Movements Patient 227 lb 213 lb 208 lb Weight Weight Bed scale Chair scale Bed scale Measurement Method Physical Exam: General: NAD, A+O x3. Neck: negative JVD CV: RRR, no m/r/g Pulm: CTAB, no rales Abd: soft, NT Lower Ext: neg edema Upper Ext: LUE AVF +thrill/bruit Neuro: neg tremor, asterixis Current Medications: Current Medications Sig/Grace Start time Last Medication Dose Route Stop Time Status Admin Acetaminophen 325 MG Q6-PRN PRN 04/09 2245 AC 04/10 PO 0239 Albuterol Sulfate 2 PUF Q4P PRN 04/09 2300 AC INH Aspirin Buffered 81 MG 0800 04/10 0800 AC 04/16 PO 0856 Atorvastatin Calcium 40 MG 1700 04/10 1700 AC 04/16 PO 1716 Benztropine Mesylate 0.5 MG BID 04/10 1000 AC 04/16 PO 2051 Chlorhexidine 1 GM .STK-MED ONE 04/16 1536 DC Gluconate TOP 04/16 1537 Cinacalcet 30 MG DAILY 04/10 1000 AC 04/16 PO 0857 Epoetin Florentino 8,000 UNIT TUES THURS SAT PRN 04/10 1500 AC IV Furosemide 80 MG 0800,2200 04/10 0800 AC 04/16 PO 2051 Gabapentin 300 MG AT BEDTIME 04/10 0215 AC 04/16 PO 2050 Hydralazine HCl 20 MG BID 04/10 1000 AC 04/16 PO 2052 Labetalol HCl 100 MG BID 04/10 1000 AC 04/16 PO 2050 Lamotrigine 150 MG DAILY 04/10 1000 AC 04/16 PO 0858 Lidocaine 50 ML .STK-MED ONE 04/16 1536 DC TOP 04/16 1537 Lidocaine 2 GAVIN .STK-MED ONE 04/16 1536 DC TOP 04/16 1537 Lorazepam 0 Q1P PRN 04/11 0045 AC IV Multivitamins 1 TAB 1000 04/10 1000 AC 04/16 PO 0857 Oxcarbazepine 600 MG BID 04/10 1000 AC 04/16 PO 2050 Pantoprazole Sodium 40 MG DAILY 04/10 1000 AC 04/16 IV 0859 Propranolol HCl 10 MG BID 04/10 1000 AC 04/16 PO 2051 Quetiapine Fumarate 400 MG AT BEDTIME 04/10 0215 AC 04/16 PO 2050 Sevelamer Carbonate 2,400 MG TIDAC 04/10 0800 AC 04/15 PO 1347 Tiotropium [place] 1 PUF DAILY 04/10 1000 AC 04/16 INH 0940 Results Pertinent Lab Results: Laboratory Tests 04/17 04/17 04/16 0824 0749 0633 Chemistry Sodium (137 - 145 mmol/L) Pending Cancelled 132 L Potassium (3.5 - 5.1 mmol/L) Pending Cancelled 5.0 Chloride (98 - 107 mmol/L) Pending Cancelled 95 L Carbon Dioxide (22 - 30 mmol/L) Pending Cancelled 27 Anion Gap (5 - 16) Pending Cancelled 10 BUN (9 - 20 mg/dL) Pending Cancelled 35 H Creatinine (0.7 - 1.2 mg/dL) Pending Cancelled 6.8 *H Estimated GFR (>60 ml/min) 8 L BUN/Creatinine Ratio (7 - 25 %) Pending Cancelled 5.1 L Calcium Pending Phosphorus Pending Magnesium Pending Hematology CBC w Diff Pending NO MAN DIFF REQ WBC (4.8 - 10.8 /CUMM) Pending 8.6 RBC (4.70 - 6.10 /CUMM) Pending 2.78 L Hgb (14.0 - 18.0 G/DL) Pending 8.4 L Hct (42 - 52 %) Pending 25.0 L MCV (80.0 - 94.0 FL) Pending 90.2 MCH (27.0 - 31.0 PG) Pending 30.4 RDW (11.5 - 14.5 %) Pending 18.8 H Plt Count (130 - 400 /CUMM) Pending 355 MPV (7.4 - 10.4 FL) Pending 7.7 Gran % (42.2 - 75.2 %) 72.0 Lymphocytes % (20.5 - 51.1 %) 15.4 L Monocytes % (1.7 - 9.3 %) 7.5 Eosinophils % (0 - 5 %) 4.3 Basophils % (0.0 - 2.0 %) 0.8 Absolute Granulocytes (1.4 - 6.5 /CUMM) 6.2 Absolute Lymphocytes (1.2 - 3.4 /CUMM) 1.3 Absolute Monocytes (0.10 - 0.60 /CUMM) 0.6 Absolute Eosinophils (0.0 - 0.7 /CUMM) 0.4 Absolute Basophils (0.0 - 0.2 /CUMM) 0.1 PUBS MCHC (33.0 - 37.0 G/DL) Pending 33.7 Serology Hep Bs Antigen Pending Hep Bs Antibody Pending 04/15 0635 Chemistry Sodium (137 - 145 mmol/L) 144 Potassium (3.5 - 5.1 mmol/L) 4.1 Chloride (98 - 107 mmol/L) 101 Carbon Dioxide (22 - 30 mmol/L) 26 Anion Gap (5 - 16) 17 H BUN (9 - 20 mg/dL) 26 H Creatinine (0.7 - 1.2 mg/dL) 5.2 *H Estimated GFR (>60 ml/min) 11 L BUN/Creatinine Ratio (7 - 25 %) 5.0 L Calcium (8.4 - 10.2 mg/dL) 8.4 Phosphorus (2.5 - 4.5 mg/dL) 2.3 L Magnesium (1.6 - 2.3 mg/dL) 1.8 Hematology CBC w Diff NO MAN DIFF REQ WBC (4.8 - 10.8 /CUMM) 8.9 RBC (4.70 - 6.10 /CUMM) 2.83 L Hgb (14.0 - 18.0 G/DL) 8.5 L Hct (42 - 52 %) 25.6 L MCV (80.0 - 94.0 FL) 90.6 MCH (27.0 - 31.0 PG) 30.2 RDW (11.5 - 14.5 %) 19.0 H Plt Count (130 - 400 /CUMM) 392 MPV (7.4 - 10.4 FL) 7.5 Gran % (42.2 - 75.2 %) 69.5 Lymphocytes % (20.5 - 51.1 %) 17.3 L Monocytes % (1.7 - 9.3 %) 7.6 Eosinophils % (0 - 5 %) 4.6 Basophils % (0.0 - 2.0 %) 1.0 Absolute Granulocytes (1.4 - 6.5 /CUMM) 6.2 Absolute Lymphocytes (1.2 - 3.4 /CUMM) 1.5 Absolute Monocytes (0.10 - 0.60 /CUMM) 0.7 H Absolute Eosinophils (0.0 - 0.7 /CUMM) 0.4 Absolute Basophils (0.0 - 0.2 /CUMM) 0.1 PUBS MCHC (33.0 - 37.0 G/DL) 33.3
[2017-04-17 10:35] LABS: ABSOLUTE BASOPHIL COUNT 0.1 /CUMM (0.0-0.2); ABSOLUTE EOSINOPHIL COUNT 0.4 /CUMM (0.0-0.7); ABSOLUTE GRANULOCYTE CT 5.1 /CUMM (1.4-6.5); ABSOLUTE LYMPH COUNT 1.2 /CUMM (1.2-3.4); ABSOLUTE MONOCYTE COUNT 0.5 /CUMM (0.10-0.60); BASOPHIL % 1.1 % (0.0-2.0); GRANULOCYTE % 70.6 % (42.2-75.2); HEMATOCRIT 24.2 % (42-52); MEAN CORPUSCULAR HGB 30.5 PG (27.0-31.0); MEAN CORPUSCULAR HGB CONC 33.8 G/DL (33.0-37.0); MEAN CORPUSCULAR VOLUME 90.4 FL (80.0-94.0); MEAN PLATELET VOLUME 7.4 FL (7.4-10.4); PLATELET COUNT 394 /CUMM (130-400); RED BLOOD CELL CT 2.67 /CUMM (4.70-6.10); WHITE BLOOD CELL COUNT 7.3 /CUMM (4.8-10.8)
--- NOTE | 2017-04-17 12:53 | PN- Att Addend ---
Attending Addendum Attending Brief Note No new issues patient getting his hemodialysis today BP is better today but no other major changes patient still kept in the hospital until legal issues are resolved Intake & Output 04/17 1600 04/17 0400 04/16 1600 04/16 0400 04/15 1600 04/15 0400 Intake Total 600 480 240 990 360 Output Total Balance 600 480 240 990 360 Intake, IV 10 10 Intake, Oral 600 480 240 980 350 Number 3 1 Bowel Movements Patient 227 lb 213 lb 208 lb Weight Weight Bed scale Chair scale Bed scale Measurement Method Current Medications Sig/Grace Start time Last Medication Dose Route Stop Time Status Admin Acetaminophen 325 MG Q6-PRN PRN 04/09 2245 AC 04/10 PO 0239 Albuterol Sulfate 2 PUF Q4P PRN 04/09 2300 AC INH Aspirin Buffered 81 MG 0800 04/10 0800 AC 04/16 PO 0856 Atorvastatin Calcium 40 MG 1700 04/10 1700 AC 04/16 PO 171 Benztropine Mesylate 0.5 MG BID 04/10 1000 AC 04/16 PO 2051 Chlorhexidine 1 GM .STK-MED ONE 04/16 1536 DC Gluconate TOP 04/16 1537 Cinacalcet 30 MG DAILY 04/10 1000 AC 04/16 PO 0857 Epoetin Florentino 8,000 UNIT TUES THURS SAT PRN 04/10 1500 AC IV Furosemide 80 MG 0800,2200 04/10 0800 AC 04/16 PO 2051 Gabapentin 300 MG AT BEDTIME 04/10 0215 AC 04/16 PO 2050 Hydralazine HCl 20 MG BID 04/10 1000 AC 04/16 PO 2052 Labetalol HCl 100 MG BID 04/10 1000 AC 04/16 PO 2050 Lamotrigine 150 MG DAILY 04/10 1000 AC 04/16 PO 0858 Lidocaine 50 ML .STK-MED ONE 04/16 1536 DC TOP 04/16 1537 Lidocaine 2 GAVIN .STK-MED ONE 04/16 1536 DC TOP 04/16 1537 Lorazepam 0 Q1P PRN 04/11 0045 AC IV Multivitamins 1 TAB 1000 04/10 1000 AC 04/16 PO 0857 Oxcarbazepine 600 MG BID 04/10 1000 AC 04/16 PO 2050 Pantoprazole Sodium 40 MG DAILY 04/10 1000 AC 04/16 IV 0859 Propranolol HCl 10 MG BID 04/10 1000 AC 04/16 PO 2051 Quetiapine Fumarate 400 MG AT BEDTIME 04/10 0215 AC 04/16 PO 2050 Sevelamer Carbonate 2,400 MG TIDAC 04/10 0800 AC 04/15 PO 1347 Tiotropium [employer] 1 PUF DAILY 04/10 1000 AC 04/16 INH 0940 Laboratory Tests 04/17/17 0824: Anion Gap 14, Estimated GFR 6 L, BUN/Creatinine Ratio 5.8 L, Calcium 8.0 L, Phosphorus 3.4, Magnesium 2.0, CBC w Diff NO MAN DIFF REQ, RBC 2.67 L, MCV 90.4 , MCH 30.5, RDW 19.0 H, MPV 7.4, Gran % 70.6, Lymphocytes % 16.4 L, Monocytes % 6.9, Eosinophils % 5.0, Basophils % 1.1, Absolute Granulocytes 5.1, Absolute Lymphocytes 1.2, Absolute Monocytes 0.5, Absolute Eosinophils 0.4, Absolute Basophils 0.1, PUBS MCHC 33.8, Hep Bs Antigen NONREACTIVE, Hep Bs Antibody NONREACTIVE 04/17/17 0749: Sodium Cancelled, Potassium Cancelled, Chloride Cancelled, Carbon Dioxide Cancelled, Anion Gap Cancelled, BUN Cancelled, Creatinine Cancelled, BUN/ Creatinine Ratio Cancelled 04/16/17 0633: Anion Gap 10, Estimated GFR 8 L, BUN/Creatinine Ratio 5.1 L, CBC w Diff NO MAN DIFF REQ, RBC 2.78 L, MCV 90.2, MCH 30.4, RDW 18.8 H, MPV 7.7, Gran % 72.0, Lymphocytes % 15.4 L, Monocytes % 7.5, Eosinophils % 4.3, Basophils % 0.8, Absolute Granulocytes 6.2, Absolute Lymphocytes 1.3, Absolute Monocytes 0.6, Absolute Eosinophils 0.4, Absolute Basophils 0.1, PUBS MCHC 33.7 04/15/17 0635: Anion Gap 17 H, Estimated GFR 11 L, BUN/Creatinine Ratio 5.0 L, Calcium 8.4, Phosphorus 2.3 L, Magnesium 1.8, CBC w Diff NO MAN DIFF REQ, RBC 2.83 L, MCV 90.6, MCH 30.2, RDW 19.0 H, MPV 7.5, Gran % 69.5, Lymphocytes % 17.3 L, Monocytes % 7.6, Eosinophils % 4.6, Basophils % 1.0, Absolute Granulocytes 6.2, Absolute Lymphocytes 1.5, Absolute Monocytes 0.7 H, Absolute Eosinophils 0.4, Absolute Basophils 0.1, PUBS MCHC 33.3 Vital Signs Date Time Temp Pulse Resp B/P B/P Pulse O2 O2 Flow FiO2 Mean Ox Delivery Rate 04/17 0736 98.5 77 18 119/72 98 Room Air 04/160 97.7 81 16 150/88 94 Room Air 04/16 2057 86 168/90 04/16 2053 86 168/90 04/16 2052 86 168/90 04/16 2051 86 168/90 04/16 1716 98.0 70 18 134/102 96 Room Air
[2017-04-17 13:30] VITALS: BP 170/80
--- NOTE | 2017-04-17 16:28 | PN- Psychiatry ---
Assessment/Plan Impression: Identifying Info: 61-year-old single conserved male well known to this service presents to [facility] emergency department on 04/09/2017 which complaint of shortness of breath. Seen today on telemetry. SUBJECTIVE Patient is seen today with Care clinical case manager Rodrick as well as Social Work and med student. He is informed that he has been appointed conservator of person and finance. Additionally he is informed he will need to be discharged to a structured setting. He reports high frustration and his intention to fight conservator's decision. He is offered but declines PRN medication for anxiety, he remains cooperative and in good behavioral control throughout. Brief ROS Gait: Not observed Sleep: Adequate Appetite: Adequate OBJECTIVE Patient discussed after safety huddle today with hospital administration, case management, social work, Chief of Psychiatry and Director of Psychiatric Services. Due to conservator decision for LTC placement the patient may not leave AMA. Mental Status Exam Presentation/Appearance: Does not participate in evaluation today. Sitting in bed. Orientation: Grossly oriented. Sensorium: Awake and alert Eye contact: Appropriate Affect: Blunted Mood: "Fine" Depression: Denies Anxiety: Denies Thought Content: - Unable to assess Thought Process: Linear Associations: Appropriate Speech: Normal tone and rate, short responses Judgment: Poor Insight: Poor Cognition: Memory: Grossly intact Attention/Concentration: Grossly intact Fund of Knowledge: Adequate Abstractions: Not assessed MMSE: Not completed ASSESSMENT 61-year-old conserved single male with history of severe bipolar disorder requiring multiple long-term hospitalizations currently presents as psychiatrically asymptomatic. While in hospital it would be prudent to continue psychotropics as taken at home as medically able to maintain stability. He has been informed fo conservatorship and Ariagoraators decision that he be placed in LTC which he states he intends to fight. He is a flight risk at this time. Diagnosis Bipolar I disorder, severe, most recent episode manic by history Alcohol use disorder by history Cannabis use disorder A total of 60 minutes was spent with the patient with more than 50% of the time spent in counseling and/or coordination of care. Suggestion: - Patient will require safety monitor for elopement risk, per conservator he will require LTC placement and he may not leave AMA. - Continue psychotropics as currently ordered. If patient does require PRN medication for dangerous agitation would recommend haldol 10mg and ativan 2mg IM on a one time basis. - We will contact visiting nurse to determine when patient is next due to MIRAMONTES Bennie shot. Thank you for including psychiatry in this case we'll continue to follow. Subjective Subjective: as above Objective Last 24 Hrs of Vital Signs/I&O Current Medications Sig/Grace Start time Last Medication Dose Route Stop Time Status Admin Acetaminophen 325 MG Q6-PRN PRN 04/09 2245 AC 04/10 PO 0239 Albuterol Sulfate 2 PUF Q4P PRN 04/09 2300 AC INH Aspirin Buffered 81 MG 0800 04/10 0800 AC 04/17 PO 1334 Atorvastatin Calcium 40 MG 1700 04/10 1700 AC 04/16 PO 1716 Benztropine Mesylate 0.5 MG BID 04/10 1000 AC 04/17 PO 1334 Cinacalcet 30 MG DAILY 04/10 1000 AC 04/17 PO 1335 Epoetin Florentino 8,000 UNIT TUES THURS SAT PRN 04/10 1500 AC IV Furosemide 80 MG 0800,2200 04/10 0800 AC 04/17 PO 1334 Gabapentin 300 MG AT BEDTIME 04/10 021 AC 04/16 PO 205 Haloperidol 10 MG BID PRN 04/17 1600 AC IM Hydralazine HCl 20 MG BID 04/10 1000 AC 04/17 PO 1334 Labetalol HCl 100 MG BID 04/10 1000 AC 04/17 PO 1334 Lamotrigine 150 MG DAILY 04/10 1000 AC 04/17 PO 1335 Lorazepam 2 MG Q6 PRN 04/17 1600 AC IV Lorazepam 0 Q1P PRN 04/11 0045 AC IV Multivitamins 1 TAB 1000 04/10 1000 AC 04/17 PO 1334 Oxcarbazepine 600 MG BID 04/10 1000 AC 04/17 PO 1334 Pantoprazole Sodium 40 MG DAILY 04/10 1000 AC 04/17 IV 1333 Propranolol HCl 10 MG BID 04/10 1000 AC 04/17 PO 1336 Quetiapine Fumarate 400 MG AT BEDTIME 04/10 021 AC 04/16 PO 205 Sevelamer Carbonate 2,400 MG TIDAC 04/10 0800 AC 04/17 PO 1334 Tiotropium [place] 1 PUF DAILY 04/10 1000 AC 04/17 INH 1333 Laboratory Tests 04/17/17 0824: Anion Gap 14, Estimated GFR 6 L, BUN/Creatinine Ratio 5.8 L, Calcium 8.0 L, Phosphorus 3.4, Magnesium 2.0, CBC w Diff NO MAN DIFF REQ, RBC 2.67 L, MCV 90.4 , MCH 30.5, RDW 19.0 H, MPV 7.4, Gran % 70.6, Lymphocytes % 16.4 L, Monocytes % 6.9, Eosinophils % 5.0, Basophils % 1.1, Absolute Granulocytes 5.1, Absolute Lymphocytes 1.2, Absolute Monocytes 0.5, Absolute Eosinophils 0.4, Absolute Basophils 0.1, PUBS MCHC 33.8, Hep Bs Antigen NONREACTIVE, Hep Bs Antibody NONREACTIVE 04/17/17 0749: Sodium Cancelled, Potassium Cancelled, Chloride Cancelled, Carbon Dioxide Cancelled, Anion Gap Cancelled, BUN Cancelled, Creatinine Cancelled, BUN/ Creatinine Ratio Cancelled Vital Signs Date Time Temp Pulse Resp B/P B/P Pulse O2 O2 Flow FiO2 Mean Ox Delivery Rate 04/17 1336 84 170/80 04/17 1334 84 170/80 04/17 1334 84 170/80 04/17 1330 98.4 84 18 170/80 97 Room Air 04/17 0736 98.5 77 18 119/72 98 Room Air 04/16 2250 97.7 81 16 150/88 94 Room Air 04/16 2057 86 168/90 04/16 2053 86 168/90 04/16 2052 86 168/90 04/16 2051 86 168/90 04/16 1716 98.0 70 18 134/102 96 Room Air Intake & Output 04/17 1600 04/17 0800 04/17 0000 Intake Total 240 600 480 Output Total 0 Balance 240 600 480 Intake, IV 0 Intake, Oral 240 600 480 Number 0 Bowel Movements Output, Urine 0 Patient 220 lb 227 lb Weight Weight Bed scale Bed scale Measurement Method
[2017-04-17 22:25] VITALS: BP 156/90
[2017-04-18] VITALS: BP 156/90
[2017-04-18 06:00] VITALS: BP 160/80
[2017-04-18 07:08] VITALS: BP 160/80
--- NOTE | 2017-04-18 07:20 | PN- Housestaff ---
Subjective Follow-up For: Symptomatic anemia Atypical chest(resolved) End-stage renal disease on dialysis. Subjective: No overnight events. Patient remained afebrile overnight. Patient seen and examined this morning were sent. He was lying in bed comfortably. He denied any chest pain, short of breath, nausea, vomiting, abdominal pain and dysuria. Patient has conservator and might be he needs long-term care. Review of Systems Constitutional: Reports: no symptoms. EENTM: Reports: no symptoms. Cardiovascular: Reports: no symptoms. Respiratory: Reports: no symptoms. Gastrointestinal: Reports: no symptoms. Genitourinary: Reports: no symptoms. Musculoskeletal: Reports: no symptoms. Neurological/Psychological: Reports: no symptoms. Objective Last 24 Hrs of Vital Signs/I&O Vital Signs Date Time Temp Pulse Resp B/P B/P Pulse O2 O2 Flow FiO2 Mean Ox Delivery Rate 04/18 0708 98.7 72 20 160/80 99 Room Air 04/18 0600 160/80 04/18 0000 98.9 80 20 156/90 04/17 2240 80 156/90 04/17 2239 80 156/90 04/17 2239 80 156/90 04/17 2225 98.9 80 20 156/90 97 04/17 1336 84 170/80 04/17 1334 84 170/80 04/17 1334 84 170/80 04/17 1330 98.4 84 18 170/80 97 Room Air Intake & Output 04/18 1600 04/18 0800 04/18 0000 Intake Total 50 720 Output Total Balance 50 720 Intake, Oral 50 720 Patient 214 lb Weight Weight Bed scale Measurement Method Physical Exam General Appearance: Alert, Oriented X3, Cooperative Skin Temp/Moisture Exam: Warm/Dry HEENT: Atraumatic, PERRLA, EOMI Neck: Supple Cardiovascular: Normal S1, Normal S2 Lungs: Clear to Auscultation Abdomen: Soft, No Tenderness Neurological: Normal Speech, Strength at 5/5 X4 Ext, Normal Tone, Sensation Intact Assessment/Plan Assessment: 61 yo M active smoker with pmhx of ESRD on HD, HFrEF (EF 45-50%) HTN, HLD, bipolar disorder, asthma/COPD, and seizure history presented with dyspnea and acute blood loss anemia with guaiac positive stool. Acute blood loss anemia: with reported melena/guiaic positive GI bleed: -H&H on presentation 5.5/16.1 -s/p 6 units pRBC transfusion -CBC currently 8.7/26.2 -GI consultation planned for EGD/colonoscopy Sunday -Bowel prep with 1 gallon Golytely today. -IV Protonix -No NSAIDs -Continue Epogen for chronic anemia from ESRD -Nothing by mouth and going for colonoscopy and endoscopy today. We'll follow the results, GI recommendations. -Patient go the endoscopy and colonoscopy yesterday. On endoscopic there is no bleeding site identified and or colonoscopy incomplete preparation. We will get the records from [facility] [place] if any available for last colonoscopy endoscopy. -Patient's H&H is stable we will follow CBC. Atypical chest pain: -Troponins negative for myocardial ischemia -Reportedly negative coronary angiography in 02/2017 -Takotsubo cardiomyopathy for HFrEF echo LVEF 45% -Follow up cardiology recommendations ESRD on HD: -Nephrology consultation -Continue regular hemodialysis Sunday//Sunday -Trend renal function -Continue nephrovitamin, sevalamer, sensipar and epogen injection History of bipolar disorder: -Continue the benztropine, aripiprazole and seroquel. HFrEF: -Continue the Lasix, aspirin, propranolol, labetalol, and hydralazine HLD: -Continue Lipitor for hyperlipidemia History of seizures: -Continue oxcarbazepine and lamotrigine Dialysis diet 2g sodium and 2g potassium, water restriction to 1200ml DVT prophylaxis: Mechanical and s/c heparin CODE STATUS: Full code Problem List: 1. Atypical chest pain 2. Symptomatic anemia 3. ESRD (end stage renal disease) on dialysis Pain Ratin Pain Location: none Pain Goal: Remain pain free Pain Plan: tylenol for mild pain Tomorrow's Labs & Rationales: cbc/bep
[2017-04-18 08:28] LABS: ABSOLUTE BASOPHIL COUNT 0.1 /CUMM (0.0-0.2); ABSOLUTE EOSINOPHIL COUNT 0.4 /CUMM (0.0-0.7); ABSOLUTE GRANULOCYTE CT 4.5 /CUMM (1.4-6.5); ABSOLUTE LYMPH COUNT 1.3 /CUMM (1.2-3.4); ABSOLUTE MONOCYTE COUNT 0.6 /CUMM (0.10-0.60); BASOPHIL % 1.2 % (0.0-2.0); EOSINOPHIL % 5.2 % (0-5); GRANULOCYTE % 65.3 % (42.2-75.2); HEMATOCRIT 25.7 % (42-52); MEAN CORPUSCULAR HGB 30.7 PG (27.0-31.0); MEAN CORPUSCULAR VOLUME 90.4 FL (80.0-94.0); MEAN PLATELET VOLUME 7.3 FL (7.4-10.4); PLATELET COUNT 437 /CUMM (130-400); RBC DISTRIBUTION WIDTH 18.8 % (11.5-14.5); RED BLOOD CELL CT 2.85 /CUMM (4.70-6.10); WHITE BLOOD CELL COUNT 6.9 /CUMM (4.8-10.8)
--- NOTE | 2017-04-18 09:42 | PN- Nephrology ---
Assessment/Plan Assessment: 1. ESRD: no HD need today 2. GI bleed: Hg stable; continue EPO w HD Suggestion: HD tomorrow Subjective Subjective: No complaints Denies uremic sx or SOB Objective Vital Signs and I&Os Vital Signs Date Time Temp Pulse Resp B/P B/P Pulse O2 O2 Flow FiO2 Mean Ox Delivery Rate 04/18 0708 98.7 72 20 160/80 99 Room Air 04/18 0600 160/80 04/18 0000 98.9 80 20 156/90 04/17 2240 80 156/90 04/17 2239 80 156/90 04/17 2239 80 156/90 04/17 2225 98.9 80 20 156/90 97 04/17 1336 84 170/80 04/17 1334 84 170/80 04/17 1334 84 170/80 04/17 1330 98.4 84 18 170/80 97 Room Air Intake & Output 04/18 1600 04/18 0400 04/17 1600 04/17 0400 04/16 1600 04/16 0400 Intake Total 50 720 840 480 240 Output Total 0 Balance 50 720 840 480 240 Intake, IV 0 Intake, Oral 50 720 840 480 240 Number 0 3 1 Bowel Movements Output, Urine 0 Patient 214 lb 220 lb 213 lb Weight Weight Bed scale Bed scale Chair scale Measurement Method Physical Exam General Appearance: well developed/nourished, no apparent distress, alert Head: atraumatic, normal appearance Neck: supple Respiratory: normal breath sounds, chest non-tender, no respiratory distress, quiet respiration, lungs clear Cardiovascular: regular rate/rhythm, edema (none) Abdomen: normal bowel sounds, soft, non-tender, no organomegaly Extremities: + bruit L arm AVF Neurologic/Psychiatric: awake, alert, oriented x 3 Current Medications: Current Medications Sig/Grace Start time Last Medication Dose Route Stop Time Status Admin Acetaminophen 325 MG Q6-PRN PRN 04/09 2245 AC 04/10 PO 0239 Albuterol Sulfate 2 PUF Q4P PRN 04/09 2300 AC INH Aspirin Buffered 81 MG 0800 04/10 0800 AC 04/17 PO 1334 Atorvastatin Calcium 40 MG 1700 04/10 1700 AC 04/17 PO 1642 Benztropine Mesylate 0.5 MG BID 04/10 1000 AC 04/17 PO 2239 Cinacalcet 30 MG DAILY 04/10 1000 AC 04/17 PO 1335 Epoetin Florentino 8,000 UNIT TUES THURS SAT PRN 04/10 1500 AC IV Furosemide 80 MG 0800,2200 04/10 0800 AC 04/17 PO 2240 Gabapentin 300 MG AT BEDTIME 04/10 0215 AC 04/17 PO 2241 Haloperidol 10 MG BID PRN 04/17 1600 AC IM Hydralazine HCl 20 MG BID 04/10 1000 AC 04/17 PO 2239 Labetalol HCl 100 MG BID 04/10 1000 AC 04/17 PO 2239 Lamotrigine 150 MG DAILY 04/10 1000 AC 04/17 PO 1335 Lorazepam 2 MG Q6 PRN 04/17 1600 AC IV Lorazepam 0 Q1P PRN 04/11 0045 DC IV Multivitamins 1 TAB 1000 04/10 1000 AC 04/17 PO 1334 Oxcarbazepine 600 MG BID 04/10 1000 AC 04/17 PO 2241 Pantoprazole Sodium 40 MG DAILY 04/10 1000 AC 04/17 IV 1333 Propranolol HCl 10 MG BID 04/10 1000 AC 04/17 PO 2240 Quetiapine Fumarate 400 MG AT BEDTIME 04/10 021 AC 04/17 PO 2240 Sevelamer Carbonate 2,400 MG TIDAC 04/10 0800 AC 04/17 PO 1642 Tiotropium [place] 1 PUF DAILY 04/10 1000 AC 04/17 INH 1333 Results Pertinent Lab Results: Laboratory Tests 04/18 04/17 0725 0824 Chemistry Sodium (137 - 145 mmol/L) 135 L 133 L Potassium (3.5 - 5.1 mmol/L) 4.9 5.0 Chloride (98 - 107 mmol/L) 99 96 L Carbon Dioxide (22 - 30 mmol/L) 25 24 Anion Gap (5 - 16) 12 14 BUN (9 - 20 mg/dL) 30 H 49 H Creatinine (0.7 - 1.2 mg/dL) 6.2 *H 8.5 *H Estimated GFR (>60 ml/min) 9 L 6 L BUN/Creatinine Ratio (7 - 25 %) 4.8 L 5.8 L Calcium (8.4 - 10.2 mg/dL) 8.0 L Phosphorus (2.5 - 4.5 mg/dL) 3.4 Magnesium (1.6 - 2.3 mg/dL) 2.0 Hematology CBC w Diff NO MAN DIFF REQ NO MAN DIFF REQ WBC (4.8 - 10.8 /CUMM) 6.9 7.3 RBC (4.70 - 6.10 /CUMM) 2.85 L 2.67 L Hgb (14.0 - 18.0 G/DL) 8.7 L 8.2 L Hct (42 - 52 %) 25.7 L 24.2 L MCV (80.0 - 94.0 FL) 90.4 90.4 MCH (27.0 - 31.0 PG) 30.7 30.5 RDW (11.5 - 14.5 %) 18.8 H 19.0 H Plt Count (130 - 400 /CUMM) 437 H 394 MPV (7.4 - 10.4 FL) 7.3 L 7.4 Gran % (42.2 - 75.2 %) 65.3 70.6 Lymphocytes % (20.5 - 51.1 %) 19.4 L 16.4 L Monocytes % (1.7 - 9.3 %) 8.9 6.9 Eosinophils % (0 - 5 %) 5.2 H 5.0 Basophils % (0.0 - 2.0 %) 1.2 1.1 Absolute Granulocytes (1.4 - 6.5 /CUMM) 4.5 5.1 Absolute Lymphocytes (1.2 - 3.4 /CUMM) 1.3 1.2 Absolute Monocytes (0.10 - 0.60 /CUMM) 0.6 0.5 Absolute Eosinophils (0.0 - 0.7 /CUMM) 0.4 0.4 Absolute Basophils (0.0 - 0.2 /CUMM) 0.1 0.1 PUBS MCHC (33.0 - 37.0 G/DL) 34.0 33.8 Serology Hep Bs Antigen (NONREACTIVE) NONREACTIVE Hep Bs Antibody (NONREACTIVE) NONREACTIVE 04/17 04/16 4493 0651 Chemistry Sodium (137 - 145 mmol/L) Cancelled 132 L Potassium (3.5 - 5.1 mmol/L) Cancelled 5.0 Chloride (98 - 107 mmol/L) Cancelled 95 L Carbon Dioxide (22 - 30 mmol/L) Cancelled 27 Anion Gap (5 - 16) Cancelled 10 BUN (9 - 20 mg/dL) Cancelled 35 H Creatinine (0.7 - 1.2 mg/dL) Cancelled 6.8 *H Estimated GFR (>60 ml/min) 8 L BUN/Creatinine Ratio (7 - 25 %) Cancelled 5.1 L Hematology CBC w Diff NO MAN DIFF REQ WBC (4.8 - 10.8 /CUMM) 8.6 RBC (4.70 - 6.10 /CUMM) 2.78 L Hgb (14.0 - 18.0 G/DL) 8.4 L Hct (42 - 52 %) 25.0 L MCV (80.0 - 94.0 FL) 90.2 MCH (27.0 - 31.0 PG) 30.4 RDW (11.5 - 14.5 %) 18.8 H Plt Count (130 - 400 /CUMM) 355 MPV (7.4 - 10.4 FL) 7.7 Gran % (42.2 - 75.2 %) 72.0 Lymphocytes % (20.5 - 51.1 %) 15.4 L Monocytes % (1.7 - 9.3 %) 7.5 Eosinophils % (0 - 5 %) 4.3 Basophils % (0.0 - 2.0 %) 0.8 Absolute Granulocytes (1.4 - 6.5 /CUMM) 6.2 Absolute Lymphocytes (1.2 - 3.4 /CUMM) 1.3 Absolute Monocytes (0.10 - 0.60 /CUMM) 0.6 Absolute Eosinophils (0.0 - 0.7 /CUMM) 0.4 Absolute Basophils (0.0 - 0.2 /CUMM) 0.1 PUBS MCHC (33.0 - 37.0 G/DL) 33.7
--- NOTE | 2017-04-18 10:41 | PN- Att Addend ---
Attending Addendum Attending Brief Note Patient laying in bed comfortably at this time. Has a sitter at the bedside. Vital signs are stable blood pressure 160/80. No new changes continue with hemodialysis and social services designee workup to find a safe place for the patient to be. Intake & Output 04/18 1600 04/18 0400 04/17 1600 04/17 0400 04/16 1600 04/16 0400 Intake Total 50 720 840 480 240 Output Total 0 Balance 50 720 840 480 240 Intake, IV 0 Intake, Oral 50 720 840 480 240 Number 0 3 1 Bowel Movements Output, Urine 0 Patient 214 lb 220 lb 213 lb Weight Weight Bed scale Bed scale Chair scale Measurement Method Current Medications Sig/Grace Start time Last Medication Dose Route Stop Time Status Admin Acetaminophen 325 MG Q6-PRN PRN 04/09 2245 AC 04/10 PO 0239 Albuterol Sulfate 2 PUF Q4P PRN 04/09 2300 AC INH Aspirin Buffered 81 MG 0800 04/10 0800 AC 04/17 PO 1334 Atorvastatin Calcium 40 MG 1700 04/10 1700 AC 04/17 PO 1642 Benztropine Mesylate 0.5 MG BID 04/10 1000 AC 04/17 PO 2239 Cinacalcet 30 MG DAILY 04/10 1000 AC 04/17 PO 1335 Epoetin Florentino 8,000 UNIT TUES THURS SAT PRN 04/10 1500 AC IV Furosemide 80 MG 0800,2200 04/10 0800 AC 04/17 PO 2240 Gabapentin 300 MG AT BEDTIME 04/10 0215 AC 04/17 PO 2241 Haloperidol 10 MG BID PRN 04/17 1600 AC IM Hydralazine HCl 20 MG BID 04/10 1000 AC 04/17 PO 2239 Labetalol HCl 100 MG BID 04/10 1000 AC 04/17 PO 2239 Lamotrigine 150 MG DAILY 04/10 1000 AC 04/17 PO 1335 Lorazepam 2 MG Q6 PRN 04/17 1600 AC IV Lorazepam 0 Q1P PRN 04/11 0045 DC IV Multivitamins 1 TAB 1000 04/10 1000 AC 04/17 PO 1334 Oxcarbazepine 600 MG BID 04/10 1000 AC 04/17 PO 2241 Pantoprazole Sodium 40 MG DAILY 04/10 1000 AC 04/17 IV 1333 Propranolol HCl 10 MG BID 04/10 1000 AC 04/17 PO 2240 Quetiapine Fumarate 400 MG AT BEDTIME 04/10 0215 AC 04/17 PO 2240 Sevelamer Carbonate 2,400 MG TIDAC 04/10 0800 AC 04/17 PO 1642 Tiotropium [place] 1 PUF DAILY 04/10 1000 AC 04/17 INH 1333 Laboratory Tests 04/18/17 0725: Anion Gap 12, Estimated GFR 9 L, BUN/Creatinine Ratio 4.8 L, CBC w Diff NO MAN DIFF REQ, RBC 2.85 L, MCV 90.4, MCH 30.7, RDW 18.8 H, MPV 7.3 L, Gran % 65.3, Lymphocytes % 19.4 L, Monocytes % 8.9, Eosinophils % 5.2 H, Basophils % 1.2, Absolute Granulocytes 4.5, Absolute Lymphocytes 1.3, Absolute Monocytes 0.6, Absolute Eosinophils 0.4, Absolute Basophils 0.1, PUBS MCHC 34.0 04/17/17 0824: Anion Gap 14, Estimated GFR 6 L, BUN/Creatinine Ratio 5.8 L, Calcium 8.0 L, Phosphorus 3.4, Magnesium 2.0, CBC w Diff NO MAN DIFF REQ, RBC 2.67 L, MCV 90.4 , MCH 30.5, RDW 19.0 H, MPV 7.4, Gran % 70.6, Lymphocytes % 16.4 L, Monocytes % 6.9, Eosinophils % 5.0, Basophils % 1.1, Absolute Granulocytes 5.1, Absolute Lymphocytes 1.2, Absolute Monocytes 0.5, Absolute Eosinophils 0.4, Absolute Basophils 0.1, PUBS MCHC 33.8, Hep Bs Antigen NONREACTIVE, Hep Bs Antibody NONREACTIVE 04/17/17 0749: Sodium Cancelled, Potassium Cancelled, Chloride Cancelled, Carbon Dioxide Cancelled, Anion Gap Cancelled, BUN Cancelled, Creatinine Cancelled, BUN/ Creatinine Ratio Cancelled 04/16/17 0633: Anion Gap 10, Estimated GFR 8 L, BUN/Creatinine Ratio 5.1 L, CBC w Diff NO MAN DIFF REQ, RBC 2.78 L, MCV 90.2, MCH 30.4, RDW 18.8 H, MPV 7.7, Gran % 72.0, Lymphocytes % 15.4 L, Monocytes % 7.5, Eosinophils % 4.3, Basophils % 0.8, Absolute Granulocytes 6.2, Absolute Lymphocytes 1.3, Absolute Monocytes 0.6, Absolute Eosinophils 0.4, Absolute Basophils 0.1, PUBS MCHC 33.7 Vital Signs Date Time Temp Pulse Resp B/P B/P Pulse O2 O2 Flow FiO2 Mean Ox Delivery Rate 04/18 0708 98.7 72 20 160/80 99 Room Air 04/18 0600 160/80 04/18 0000 98.9 80 20 156/90 04/17 2240 80 156/90 04/17 2239 80 156/90 04/17 2239 80 156/90 04/17 2225 98.9 80 20 156/90 97 04/17 1336 84 170/80 04/17 1334 84 170/80 04/17 1334 84 170/80 04/17 1330 98.4 84 18 170/80 97 Room Air
--- NOTE | 2017-04-18 11:47 | PN- Psychiatry ---
Assessment/Plan Impression: Identifying Info: 61-year-old single conserved male well known to this service presents to [place] emergency department on 04/09/2017 which complaint of shortness of breath. Seen today on telemetry. SUBJECTIVE Patient is seen today with sitter at bedside. He has no complaints currently. Requesting magazines and chocolate if possible. He states he doesn't want to stay in hospital but he will do what he has to do. Brief ROS Gait: Not observed Sleep: Adequate Appetite: Adequate OBJECTIVE Spoke with visiting nurse Ochoa Nicolas ([phone]) who reports the patient gets his MIRAMONTES Abilify shot at the begining of the last week of the month. Mental Status Exam Presentation/Appearance: Calm and cooperative with evaluation. Lying in bed. Orientation: x3 Sensorium: Awake and alert Eye contact: Appropriate Affect: Somewhat blunted Mood: "Fine" Depression: Denies Anxiety: Denies Thought Content: - Denies SI/HI, AH/VH, PI. States and also believes they will not kill themselves. - Denies Hopeless/Helpless Thoughts Thought Process: Linear Associations: Appropriate Speech: Normal tone and rate, short responses Judgment: Fair Insight: Fair Cognition: Memory: Grossly intact Attention/Concentration: Grossly intact Fund of Knowledge: Adequate Abstractions: Not assessed MMSE: Not completed ASSESSMENT 61-year-old conserved single male with history of severe bipolar disorder requiring multiple long-term hospitalizations currently presents as psychiatrically asymptomatic. While in hospital it would be prudent to continue psychotropics as taken at home as medically able to maintain stability. [facility] that he be placed in LTC on 04/17/17 which he states he intends to fight. Diagnosis Bipolar I disorder, severe, most recent episode manic by history Alcohol use disorder by history Cannabis use disorder A total of 30 minutes was spent with the patient with more than 50% of the time spent in counseling and/or coordination of care. Suggestion: - Patient will require safety monitor for elopement risk, per conservator he will require LTC placement and he may not leave AMA. - Continue psychotropics as currently ordered. If patient does require PRN medication for dangerous agitation would recommend haldol 10mg and ativan 2mg IM on a one time basis. - Plan for monthly Abilify Maintaina 400mg IM to be administered on 04/22/17. - Volunteer services contacted to obtain magazines for patient. Thank you for including psychiatry in this case we'll continue to follow. Subjective Subjective: as above Objective Last 24 Hrs of Vital Signs/I&O Current Medications Sig/Grace Start time Last Medication Dose Route Stop Time Status Admin Acetaminophen 325 MG Q6-PRN PRN 04/09 2245 AC 04/10 PO 0239 Albuterol Sulfate 2 PUF Q4P PRN 04/09 2300 AC INH Aspirin Buffered 81 MG 0800 04/10 0800 AC 04/18 PO 1052 Atorvastatin Calcium 40 MG 1700 04/10 1700 AC 04/17 PO 1642 Benztropine Mesylate 0.5 MG BID 04/10 1000 AC 04/18 PO 1052 Cinacalcet 30 MG DAILY 04/10 1000 AC 04/18 PO 1053 Epoetin Florentino 8,000 UNIT TUES THURS SAT PRN 04/10 1500 AC IV Furosemide 80 MG 0800,2200 04/10 0800 AC 04/18 PO 1053 Gabapentin 300 MG AT BEDTIME 04/10 0215 AC 04/17 PO 2241 Haloperidol 10 MG BID PRN 04/17 1600 AC IM Hydralazine HCl 20 MG BID 04/10 1000 AC 04/18 PO 1052 Labetalol HCl 100 MG BID 04/10 1000 AC 04/18 PO 1052 Lamotrigine 150 MG DAILY 04/10 1000 AC 04/18 PO 1051 Lorazepam 2 MG Q6 PRN 04/17 1600 AC IV Lorazepam 0 Q1P PRN 04/11 0045 DC IV Multivitamins 1 TAB 1000 04/10 1000 AC 04/18 PO 1052 Oxcarbazepine 600 MG BID 04/10 1000 AC 04/18 PO 1051 Pantoprazole Sodium 40 MG DAILY 04/10 1000 AC 04/18 IV 1053 Propranolol HCl 10 MG BID 04/10 1000 AC 04/18 PO 1052 Quetiapine Fumarate 400 MG AT BEDTIME 04/10 0215 AC 04/17 PO 2240 Sevelamer Carbonate 2,400 MG TIDAC 04/10 0800 AC 04/18 PO 1142 Tiotropium [place] 1 PUF DAILY 04/10 1000 AC 04/18 INH 1053 Laboratory Tests 04/18/17 0725: Anion Gap 12, Estimated GFR 9 L, BUN/Creatinine Ratio 4.8 L, CBC w Diff NO MAN DIFF REQ, RBC 2.85 L, MCV 90.4, MCH 30.7, RDW 18.8 H, MPV 7.3 L, Gran % 65.3, Lymphocytes % 19.4 L, Monocytes % 8.9, Eosinophils % 5.2 H, Basophils % 1.2, Absolute Granulocytes 4.5, Absolute Lymphocytes 1.3, Absolute Monocytes 0.6, Absolute Eosinophils 0.4, Absolute Basophils 0.1, PUBS MCHC 34.0 Vital Signs Date Time Temp Pulse Resp B/P B/P Pulse O2 O2 Flow FiO2 Mean Ox Delivery Rate 04/18 1052 140/96 04/18 1052 146/96 04/18 1052 146/96 04/18 0708 98.7 72 20 160/80 99 Room Air 04/18 0600 160/80 04/18 0000 98.9 80 20 156/90 04/17 2240 80 156/90 04/17 2239 80 156/90 04/17 2239 80 156/90 04/17 2225 98.9 80 20 156/90 97 04/17 1336 84 170/80 04/17 1334 84 170/80 04/17 1334 84 170/80 04/17 1330 98.4 84 18 170/80 97 Room Air Intake & Output 04/18 1600 04/18 0800 04/18 0000 Intake Total 50 720 Output Total Balance 50 720 Intake, Oral 50 720 Patient 214 lb Weight Weight Bed scale Measurement Method
[2017-04-18 14:15] VITALS: BP 142/74
[2017-04-18 22:00] VITALS: BP 150/100
[2017-04-18 22:31] VITALS: BP 145/88
[2017-04-19 07:24] VITALS: BP 160/92
--- NOTE | 2017-04-19 07:32 | PN- Housestaff ---
Subjective Follow-up For: Symptomatic anemia Atypical chest(resolved) End-stage renal disease on dialysis. Subjective: No overnight events. Patient remained afebrile overnight. Patient seen and examined this morning. He was lying in bed comfortably. He denied any chest pain, short of breath, nausea, vomiting, lightheadedness, black stools, abdominal pain and dysuria. We're waiting for long-term placement. Patient is scheduled for dialysis today. Review of Systems Constitutional: Reports: no symptoms. EENTM: Reports: no symptoms. Cardiovascular: Reports: no symptoms. Respiratory: Reports: no symptoms. Gastrointestinal: Reports: no symptoms. Genitourinary: Reports: no symptoms. Neurological/Psychological: Reports: no symptoms. Objective Last 24 Hrs of Vital Signs/I&O Vital Signs Date Time Temp Pulse Resp B/P B/P Pulse O2 O2 Flow FiO2 Mean Ox Delivery Rate 04/19 0724 97.7 85 18 160/92 97 04/18 2231 83 145/88 04/18 2200 98.6 81 18 150/100 98 Room Air 04/18 2109 81 150/100 04/18 2108 81 150/100 04/18 2108 81 150/100 04/18 1415 97.6 68 20 142/74 99 Room Air Intake & Output 04/19 1600 04/19 0800 04/19 0000 Intake Total 490 600 Output Total 400 Balance 490 200 Intake, IV 10 Intake, Oral 480 600 Number 0 Bowel Movements Output, Urine 400 Patient 204 lb Weight Physical Exam General Appearance: Alert, Oriented X3, Cooperative, No Acute Distress Skin Temp/Moisture Exam: Warm/Dry HEENT: Atraumatic, PERRLA, EOMI Neck: Supple Cardiovascular: Normal S1, Normal S2 Lungs: Clear to Auscultation Abdomen: Soft, No Tenderness Neurological: Normal Speech, Strength at 5/5 X4 Ext, Normal Tone, Sensation Intact Assessment/Plan Assessment: 61 yo M active smoker with pmhx of ESRD on HD, HFrEF (EF 45-50%) HTN, HLD, bipolar disorder, asthma/COPD, and seizure history presented with dyspnea and acute blood loss anemia with guaiac positive stool. Acute blood loss anemia: with reported melena/guiaic positive GI bleed: -H&H on presentation 5.5/16.1 -s/p 6 units pRBC transfusion -CBC currently 8.7/26.2 -GI consultation planned for EGD/colonoscopy Sunday -Bowel prep with 1 gallon Golytely today. -IV Protonix -No NSAIDs -Continue Epogen for chronic anemia from ESRD -Nothing by mouth and going for colonoscopy and endoscopy today. We'll follow the results, GI recommendations. -Patient go the endoscopy and colonoscopy yesterday. On endoscopic there is no bleeding site identified and or colonoscopy incomplete preparation. We will get the records from [place] if any available for last colonoscopy endoscopy. -Patient's H&H is stable we will follow CBC. Atypical chest pain: -Troponins negative for myocardial ischemia -Reportedly negative coronary angiography in 02/2017 -Takotsubo cardiomyopathy for HFrEF echo LVEF 45% -Follow up cardiology recommendations ESRD on HD: -Nephrology consultation -Continue regular hemodialysis Sunday//Sunday -Trend renal function -Continue nephrovitamin, sevalamer, sensipar and epogen injection History of bipolar disorder: -Continue the benztropine, aripiprazole and seroquel. HFrEF: -Continue the Lasix, aspirin, propranolol, labetalol, and hydralazine HLD: -Continue Lipitor for hyperlipidemia History of seizures: -Continue oxcarbazepine and lamotrigine Dialysis diet 2g sodium and 2g potassium, water restriction to 1200ml DVT prophylaxis: Mechanical and s/c heparin CODE STATUS: Full code Problem List: 1. Atypical chest pain 2. Symptomatic anemia 3. ESRD (end stage renal disease) on dialysis Pain Ratin Pain Location: NONE Pain Goal: Remain pain free Pain Plan: TYLENOL FOR MILD PAIN Tomorrow's Labs & Rationales: CBC/BEP
[2017-04-19 08:51] LABS: ABSOLUTE BASOPHIL COUNT 0.1 /CUMM (0.0-0.2); ABSOLUTE EOSINOPHIL COUNT 0.4 /CUMM (0.0-0.7); ABSOLUTE GRANULOCYTE CT 5.3 /CUMM (1.4-6.5); ABSOLUTE LYMPH COUNT 1.3 /CUMM (1.2-3.4); ABSOLUTE MONOCYTE COUNT 0.4 /CUMM (0.10-0.60); EOSINOPHIL % 5.3 % (0-5); GRANULOCYTE % 70.3 % (42.2-75.2); HEMATOCRIT 22.9 % (42-52); MEAN CORPUSCULAR HGB 30.7 PG (27.0-31.0); MEAN CORPUSCULAR HGB CONC 34.1 G/DL (33.0-37.0); MEAN CORPUSCULAR VOLUME 90.1 FL (80.0-94.0); MEAN PLATELET VOLUME 7.5 FL (7.4-10.4); PLATELET COUNT 405 /CUMM (130-400); RBC DISTRIBUTION WIDTH 18.1 % (11.5-14.5); RED BLOOD CELL CT 2.54 /CUMM (4.70-6.10); WHITE BLOOD CELL COUNT 7.5 /CUMM (4.8-10.8)
--- NOTE | 2017-04-19 10:17 | PN- Att Addend ---
Attending Addendum Attending Brief Note No new issues BP slightly on the high side. No new changes on physical continue dialysis and continue arrangements for disposition plans. 24 TOTALS 04/19 0000 04/18 0000 Intake Total 1250 1560 Output Total 400 0 Balance 850 1560 Intake, IV 0 Intake, Oral 1250 1560 Number 0 Bowel Movements Output, Urine 400 0 Patient 214 lb 220 lb Weight Weight Bed scale Bed scale Measurement Method Current Medications Sig/Grace Start time Last Medication Dose Route Stop Time Status Admin Acetaminophen 325 MG Q6-PRN PRN 04/09 2245 AC 04/10 PO 0239 Albuterol Sulfate 2 PUF Q4P PRN 04/09 2300 AC INH Aspirin Buffered 81 MG 0800 04/10 0800 AC 04/18 PO 1052 Atorvastatin Calcium 40 MG 1700 04/10 1700 AC 04/18 PO 1706 Benztropine Mesylate 0.5 MG BID 04/10 1000 AC 04/18 PO 2108 Cinacalcet 30 MG DAILY 04/10 1000 AC 04/18 PO 1053 Epoetin Florentino 8,000 UNIT TUES THURS SAT PRN 04/10 1500 AC IV Furosemide 80 MG 0800,2200 04/10 0800 AC 04/18 PO 2108 Gabapentin 300 MG AT BEDTIME 04/10 021 AC 04/18 PO 2108 Haloperidol 10 MG BID PRN 04/17 1600 AC IM Hydralazine HCl 20 MG BID 04/10 1000 AC 04/18 PO 2109 Labetalol HCl 100 MG BID 04/10 1000 AC 04/18 PO 2108 Lamotrigine 150 MG DAILY 04/10 1000 AC 04/18 PO 1051 Lorazepam 2 MG Q6 PRN 04/17 1600 AC IV Multivitamins 1 TAB 1000 04/10 1000 AC 04/18 PO 1052 Oxcarbazepine 600 MG BID 04/10 1000 AC 04/18 PO 2107 Pantoprazole Sodium 40 MG DAILY 04/10 1000 AC 04/18 IV 1053 Propranolol HCl 10 MG BID 04/10 1000 AC 04/18 PO 2108 Quetiapine Fumarate 400 MG AT BEDTIME 04/10 0215 AC 04/18 PO 2108 Sevelamer Carbonate 2,400 MG TIDAC 04/10 0800 AC 04/18 PO 1706 Tiotropium Commodore 1 PUF DAILY 04/10 1000 AC 04/18 INH 1053 Laboratory Tests 04/19/17 0733: Anion Gap 11, Estimated GFR 7 L, BUN/Creatinine Ratio 5.8 L, Glucose 111 H, Calcium 8.1 L, Phosphorus 2.7, Magnesium 1.8, Albumin 2.9 L, CBC w Diff NO MAN DIFF REQ, RBC 2.54 L, MCV 90.1, MCH 30.7, RDW 18.1 H, MPV 7.5, Gran % 70.3, Lymphocytes % 17.5 L, Monocytes % 5.9, Eosinophils % 5.3 H, Basophils % 1.0, Absolute Granulocytes 5.3, Absolute Lymphocytes 1.3, Absolute Monocytes 0.4, Absolute Eosinophils 0.4, Absolute Basophils 0.1, PUBS MCHC 34.1 04/19/17 0600: CBC w Diff Cancelled, WBC Cancelled, RBC Cancelled, Hgb Cancelled, Hct Cancelled , MCV Cancelled, MCH Cancelled, RDW Cancelled, Plt Count Cancelled, MPV Cancelled, PUBS MCHC Cancelled 04/18/17 0725: Anion Gap 12, Estimated GFR 9 L, BUN/Creatinine Ratio 4.8 L, CBC w Diff NO MAN DIFF REQ, RBC 2.85 L, MCV 90.4, MCH 30.7, RDW 18.8 H, MPV 7.3 L, Gran % 65.3, Lymphocytes % 19.4 L, Monocytes % 8.9, Eosinophils % 5.2 H, Basophils % 1.2, Absolute Granulocytes 4.5, Absolute Lymphocytes 1.3, Absolute Monocytes 0.6, Absolute Eosinophils 0.4, Absolute Basophils 0.1, PUBS MCHC 34.0 Vital Signs Date Time Temp Pulse Resp B/P B/P Pulse O2 O2 Flow FiO2 Mean Ox Delivery Rate 04/19 0724 97.7 85 18 160/92 97 04/18 2231 83 145/88 04/18 2200 98.6 81 18 150/100 98 Room Air 04/18 2109 81 150/100 04/18 2108 81 150/100 04/18 2108 81 150/100 04/18 1415 97.6 68 20 142/74 99 Room Air 04/18 1052 140/96 04/18 1052 146/96 04/18 1052 146/96
--- NOTE | 2017-04-19 11:45 | PN- Nephrology ---
Assessment/Plan Assessment: Pt on dialysis now Comfortable. Suggestion: . Subjective Subjective: Pt on dialysis . No problems. Objective Vital Signs and I&Os M NAD 160/92 85 97 Lungs clear Cor RRR Abd soft Ext neg edema Results Pertinent Lab Results: 134 / 99 / 45 / 5.4 / 23/ 7.8\ Hg 7.8
[2017-04-19 12:58] VITALS: BP 190/98
--- NOTE | 2017-04-19 16:09 | PN- Psychiatry ---
Assessment/Plan Impression: Identifying Info: 61-year-old single conserved male well known to this service presents to [facility] emergency department on 04/09/2017 which complaint of shortness of breath. Seen today on telemetry. SUBJECTIVE Patient is seen today with sitter present. Brother at beside. No psychiatric complaints. Brief ROS Gait: Not observed Sleep: Adequate Appetite: Adequate OBJECTIVE Mental Status Exam Presentation/Appearance: Calm and cooperative with evaluation. Lying in bed. Orientation: x3 Sensorium: Awake and alert Eye contact: Appropriate Affect: Somewhat blunted Mood: "Fine" Depression: Denies Anxiety: Denies Thought Content: - Denies SI/HI, AH/VH, PI. States and also believes they will not kill themselves. - Denies Hopeless/Helpless Thoughts Thought Process: Linear Associations: Appropriate Speech: Normal tone and rate, short responses Judgment: Fair Insight: Fair Cognition: Memory: Grossly intact Attention/Concentration: Grossly intact Fund of Knowledge: Adequate Abstractions: Not assessed MMSE: Not completed ASSESSMENT 61-year-old conserved single male with history of severe bipolar disorder requiring multiple long-term hospitalizations currently presents as psychiatrically asymptomatic. While in hospital it would be prudent to continue psychotropics as taken at home as medically able to maintain stability. He has been informed of conservatorship and conservators decision that he be placed in LTC on 04/17/17 which he states he intends to fight. Diagnosis Bipolar I disorder, severe, most recent episode manic by history Alcohol use disorder by history Cannabis use disorder A total of 30 minutes was spent with the patient with more than 50% of the time spent in counseling and/or coordination of care. Suggestion: - Unclear if patient requires saftey monitor for AWOL risk as he has not attempted to leave. Per note per legal paraprofessional "if patient were to attempt to leave, we would encourage him to stay, but could not forcibly keep him here." Will clarify role of continued sitter. - Please order monthly Abilify Maintaina 400mg IM to be administered on . - Discontinue PRN medications for agitation. - Continue other psychotropics. Thank you for including psychiatry in this case we'll continue to follow. Subjective Subjective: as above Objective Last 24 Hrs of Vital Signs/I&O Current Medications Sig/Grace Start time Last Medication Dose Route Stop Time Status Admin Acetaminophen 325 MG Q6-PRN PRN 04/09 2245 AC 04/10 PO 0239 Albuterol Sulfate 2 PUF Q4P PRN 04/09 2300 AC INH Aspirin Buffered 81 MG 0800 04/10 0800 AC 04/19 PO 1305 Atorvastatin Calcium 40 MG 1700 04/10 1700 AC 04/18 PO 1706 Benztropine Mesylate 0.5 MG BID 04/10 1000 AC 04/19 PO 1305 Cinacalcet 30 MG DAILY 04/10 1000 AC 04/19 PO 1306 Epoetin Florentino 8,000 UNIT TUES THURS SAT PRN 04/10 1500 AC IV Furosemide 80 MG 0800,2200 04/10 0800 AC 04/19 PO 1305 Gabapentin 300 MG AT BEDTIME 04/10 0215 AC 04/18 PO 2108 Haloperidol 10 MG BID PRN 04/17 1600 AC IM Hydralazine HCl 20 MG BID 04/10 1000 AC 04/19 PO 1304 Labetalol HCl 100 MG BID 04/10 1000 AC 04/19 PO 1305 Lamotrigine 150 MG DAILY 04/10 1000 AC 04/19 PO 1305 Lorazepam 2 MG Q6 PRN 04/17 1600 AC IV Multivitamins 1 TAB 1000 04/10 1000 AC 04/19 PO 1305 Oxcarbazepine 600 MG BID 04/10 1000 AC 04/19 PO 1304 Pantoprazole Sodium 40 MG DAILY 04/10 1000 AC 04/19 IV 1306 Propranolol HCl 10 MG BID 04/10 1000 AC 04/19 PO 1305 Quetiapine Fumarate 400 MG AT BEDTIME 04/10 0215 AC 04/18 PO 2108 Sevelamer Carbonate 2,400 MG TIDAC 04/10 0800 AC 04/19 PO 1304 Tiotropium Braggs 1 PUF DAILY 04/10 1000 AC 04/19 INH 1306 Laboratory Tests 04/19/17 1131: BUN Pending 04/19/17 0733: Anion Gap 11, Estimated GFR 7 L, BUN/Creatinine Ratio 5.8 L, Glucose 111 H, Calcium 8.1 L, Phosphorus 2.7, Magnesium 1.8, Albumin 2.9 L, CBC w Diff NO MAN DIFF REQ, RBC 2.54 L, MCV 90.1, MCH 30.7, RDW 18.1 H, MPV 7.5, Gran % 70.3, Lymphocytes % 17.5 L, Monocytes % 5.9, Eosinophils % 5.3 H, Basophils % 1.0, Absolute Granulocytes 5.3, Absolute Lymphocytes 1.3, Absolute Monocytes 0.4, Absolute Eosinophils 0.4, Absolute Basophils 0.1, PUBS MCHC 34.1 04/19/17 0600: Sodium Cancelled, Potassium Cancelled, Chloride Cancelled, Carbon Dioxide Cancelled, Anion Gap Cancelled, BUN Cancelled, Creatinine Cancelled, BUN/ Creatinine Ratio Cancelled, CBC w Diff Cancelled, WBC Cancelled, RBC Cancelled, Hgb Cancelled, Hct Cancelled, MCV Cancelled, MCH Cancelled, RDW Cancelled, Plt Count Cancelled, MPV Cancelled, PUBS MCHC Cancelled Vital Signs Date Time Temp Pulse Resp B/P B/P Pulse O2 O2 Flow FiO2 Mean Ox Delivery Rate 04/19 1305 84 190/98 04/19 1305 84 190/98 04/19 1304 84 190/98 04/19 1258 98.5 84 19 190/98 97 Room Air 04/19 0724 97.7 85 18 160/92 97 04/18 2231 83 145/88 04/18 2200 98.6 81 18 150/100 98 Room Air 04/18 210 81 150/100 04/18 210 81 150/100 04/18 2108 81 150/100 Intake & Output 04/19 1600 04/19 0800 04/19 0000 Intake Total 240 490 600 Output Total 0 400 Balance 240 490 200 Intake, IV 0 10 Intake, Oral 240 480 600 Number 0 Bowel Movements Output, Urine 0 400 Patient 219 lb 204 lb Weight Weight Standing Scale Measurement Method
[2017-04-19 22:37] VITALS: BP 142/78
[2017-04-20 06:31] VITALS: BP 140/90
--- NOTE | 2017-04-20 07:17 | PN- Housestaff ---
Subjective Follow-up For: Symptomatic anemia(improving) Atypical chest(resolved) End-stage renal disease on dialysis. Subjective: No over night events. patient remained afibrile. seen and examined this moring. He denied any chest pain, SOB, headache, belly pain, chills, fever and dysuria. Review of Systems Constitutional: Reports: no symptoms. EENTM: Reports: no symptoms. Cardiovascular: Reports: no symptoms. Respiratory: Reports: no symptoms. Gastrointestinal: Reports: no symptoms. Genitourinary: Reports: no symptoms. Musculoskeletal: Reports: no symptoms. Neurological/Psychological: Reports: no symptoms. Objective Last 24 Hrs of Vital Signs/I&O Vital Signs Date Time Temp Pulse Resp B/P B/P Pulse O2 O2 Flow FiO2 Mean Ox Delivery Rate 04/20 0631 98.6 84 20 140/90 98 Room Air 04/19 2237 98.4 79 20 142/78 98 Room Air 04/19 2157 79 142/78 04/19 2156 79 142/78 04/19 2156 79 142/78 04/19 1305 84 190/98 04/19 1305 84 190/98 04/19 1304 84 190/98 04/19 1258 98.5 84 19 190/98 97 Room Air Intake & Output 04/20 0800 04/20 0000 04/19 1600 Intake Total 480 240 Output Total 1 0 Balance 480 -1 240 Intake, IV 0 Intake, Oral 480 240 Output, Stool 1 Output, Urine 0 Patient 221 lb 219 lb Weight Weight Standing Scale Measurement Method Physical Exam General Appearance: Alert, Oriented X3, Cooperative, No Acute Distress Skin Temp/Moisture Exam: Warm/Dry HEENT: Atraumatic, PERRLA, EOMI Neck: Supple Cardiovascular: Normal S1, Normal S2 Lungs: Clear to Auscultation Abdomen: Soft, No Tenderness Neurological: Normal Speech, Strength at 5/5 X4 Ext, Normal Tone, Sensation Intact Assessment/Plan Assessment: 61 yo M active smoker with pmhx of ESRD on HD, HFrEF (EF 45-50%) HTN, HLD, bipolar disorder, asthma/COPD, and seizure history presented with dyspnea and acute blood loss anemia with guaiac positive stool. Acute blood loss anemia: with reported melena/guiaic positive GI bleed: -H&H on presentation 5.5/16.1 -s/p 6 units pRBC transfusion -CBC currently 8.7/26.2 -GI consultation planned for EGD/colonoscopy Sunday -Bowel prep with 1 gallon Golytely today. -IV Protonix -No NSAIDs -Continue Epogen for chronic anemia from ESRD -Nothing by mouth and going for colonoscopy and endoscopy today. We'll follow the results, GI recommendations. -Patient go the endoscopy and colonoscopy yesterday. On endoscopic there is no bleeding site identified and or colonoscopy incomplete preparation. We will get the records from [facility] if any available for last colonoscopy endoscopy. -Patient's H&H is stable we will follow CBC. Atypical chest pain: -Troponins negative for myocardial ischemia -Reportedly negative coronary angiography in 02/2017 -Takotsubo cardiomyopathy for HFrEF echo LVEF 45% -Follow up cardiology recommendations ESRD on HD: -Nephrology consultation -Continue regular hemodialysis Sunday//Sunday -Trend renal function -Continue nephrovitamin, sevalamer, sensipar and epogen injection History of bipolar disorder: -Continue the benztropine, aripiprazole and seroquel. HFrEF: -Continue the Lasix, aspirin, propranolol, labetalol, and hydralazine HLD: -Continue Lipitor for hyperlipidemia History of seizures: -Continue oxcarbazepine and lamotrigine Dialysis diet 2g sodium and 2g potassium, water restriction to 1200ml DVT prophylaxis: Mechanical and s/c heparin CODE STATUS: Full code Problem List: 1. Atypical chest pain 2. Symptomatic anemia 3. ESRD (end stage renal disease) on dialysis Pain Ratin Pain Location: none Pain Goal: Remain pain free Pain Plan: tylenol for mild pain Tomorrow's Labs & Rationales: cbc/bep
--- NOTE | 2017-04-20 10:45 | PN- Att Addend ---
Attending Addendum Attending Brief Note Patient sitting in the chair, cooperative,has to go to an inpatient facility. Still has a sitter at the site signs stable no fever hemodialysis continue swellings in the hospital. As soon as a bed is available will transfer. Intake & Output 04/20 1600 04/20 0400 04/19 1600 04/19 0400 04/18 1600 04/18 0400 Intake Total 480 730 600 650 720 Output Total 1 0 400 Balance 480 -1 730 200 650 720 Intake, IV 10 Intake, Oral 480 720 600 650 720 Number 0 Bowel Movements Output, Stool 1 Output, Urine 0 400 Patient 221 lb 219 lb 214 lb Weight Weight Standing Scale Bed scale Measurement Method Current Medications Sig/Grace Start time Last Medication Dose Route Stop Time Status Admin Acetaminophen 325 MG Q6-PRN PRN 04/09 2245 AC 04/10 PO 0239 Albuterol Sulfate 2 PUF Q4P PRN 04/09 2300 AC INH Aripiprazole 400 MG ONCE ONE 04/22 1000 CAN IM 04/22 1001 Aspirin Buffered 81 MG 0800 04/10 0800 AC 04/20 PO 0752 Atorvastatin Calcium 40 MG 1700 04/10 1700 AC 04/19 PO 1659 Benztropine Mesylate 0.5 MG BID 04/10 1000 AC 04/20 PO 0921 Cinacalcet 30 MG DAILY 04/10 1000 AC 04/20 PO 0925 Epoetin Florentino 8,000 UNIT TUES THURS SAT PRN 04/10 1500 AC IV Furosemide 80 MG 0800,2200 04/10 0800 AC 04/20 PO 0752 Gabapentin 300 MG AT BEDTIME 04/10 0215 AC 04/19 PO 2157 Haloperidol 10 MG BID PRN 04/17 1600 AC IM Hydralazine HCl 20 MG BID 04/10 1000 AC 04/20 PO 0921 Labetalol HCl 100 MG BID 04/10 1000 AC 04/20 PO 0921 Lamotrigine 150 MG DAILY 04/10 1000 AC 04/20 PO 0921 Lorazepam 2 MG Q6 PRN 04/17 1600 AC IV Multivitamins 1 TAB 1000 04/10 1000 AC 04/20 PO 0921 Oxcarbazepine 600 MG BID 04/10 1000 AC 04/20 PO 0921 Pantoprazole Sodium 40 MG DAILY 04/10 1000 AC 04/20 IV 0947 Propranolol HCl 10 MG BID 04/10 1000 AC 12/22 PO 0921 Quetiapine Fumarate 400 MG AT BEDTIME 04/10 0215 AC 04/19 PO 2156 Sevelamer Carbonate 2,400 MG TIDAC 04/10 0800 AC 04/20 PO 0752 Tiotropium Tiger 1 PUF DAILY 04/10 1000 AC 04/20 INH 0925 Laboratory Tests 04/20/17 0900: Anion Gap 11, Estimated GFR 10 L, BUN/Creatinine Ratio 5.0 L 04/19/17 1131: 04/19/17 0733: Anion Gap 11, Estimated GFR 7 L, BUN/Creatinine Ratio 5.8 L, Glucose 111 H, Calcium 8.1 L, Phosphorus 2.7, Magnesium 1.8, Albumin 2.9 L, CBC w Diff NO MAN DIFF REQ, RBC 2.54 L, MCV 90.1, MCH 30.7, RDW 18.1 H, MPV 7.5, Gran % 70.3, Lymphocytes % 17.5 L, Monocytes % 5.9, Eosinophils % 5.3 H, Basophils % 1.0, Absolute Granulocytes 5.3, Absolute Lymphocytes 1.3, Absolute Monocytes 0.4, Absolute Eosinophils 0.4, Absolute Basophils 0.1, PUBS MCHC 34.1 04/19/17 0600: Sodium Cancelled, Potassium Cancelled, Chloride Cancelled, Carbon Dioxide Cancelled, Anion Gap Cancelled, BUN Cancelled, Creatinine Cancelled, BUN/ Creatinine Ratio Cancelled, CBC w Diff Cancelled, WBC Cancelled, RBC Cancelled, Hgb Cancelled, Hct Cancelled, MCV Cancelled, MCH Cancelled, RDW Cancelled, Plt Count Cancelled, MPV Cancelled, PUBS MCHC Cancelled 04/18/17 0725: Anion Gap 12, Estimated GFR 9 L, BUN/Creatinine Ratio 4.8 L, CBC w Diff NO MAN DIFF REQ, RBC 2.85 L, MCV 90.4, MCH 30.7, RDW 18.8 H, MPV 7.3 L, Gran % 65.3, Lymphocytes % 19.4 L, Monocytes % 8.9, Eosinophils % 5.2 H, Basophils % 1.2, Absolute Granulocytes 4.5, Absolute Lymphocytes 1.3, Absolute Monocytes 0.6, Absolute Eosinophils 0.4, Absolute Basophils 0.1, PUBS MCHC 34.0 Vital Signs Date Time Temp Pulse Resp B/P B/P Pulse O2 O2 Flow FiO2 Mean Ox Delivery Rate 04/20 0631 98.6 84 20 140/90 98 Room Air 04/197 98.4 79 20 142/78 98 Room Air 04/19 2157 79 142/78 04/19 2156 79 142/78 04/19 215 79 142/78 04/19 1305 84 190/98 04/19 1305 84 190/98 04/19 1304 84 190/98 04/19 1258 98.5 84 19 190/98 97 Room Air
[2017-04-20 11:57] LABS: ABSOLUTE BASOPHIL COUNT 0.1 /CUMM (0.0-0.2); ABSOLUTE EOSINOPHIL COUNT 0.3 /CUMM (0.0-0.7); ABSOLUTE GRANULOCYTE CT 5.8 /CUMM (1.4-6.5); ABSOLUTE MONOCYTE COUNT 0.7 /CUMM (0.10-0.60); BASOPHIL % 0.8 % (0.0-2.0); EOSINOPHIL % 4.1 % (0-5); GRANULOCYTE % 73.4 % (42.2-75.2); HEMATOCRIT 26.6 % (42-52); MEAN CORPUSCULAR HGB 30.7 PG (27.0-31.0); MEAN CORPUSCULAR HGB CONC 33.5 G/DL (33.0-37.0); MEAN CORPUSCULAR VOLUME 91.7 FL (80.0-94.0); MEAN PLATELET VOLUME 7.3 FL (7.4-10.4); PLATELET COUNT 433 /CUMM (130-400); RBC DISTRIBUTION WIDTH 19.3 % (11.5-14.5); WHITE BLOOD CELL COUNT 7.8 /CUMM (4.8-10.8)
--- NOTE | 2017-04-20 12:23 | PN- Psychiatry ---
Assessment/Plan Impression: Identifying Info: 61-year-old single conserved male well known to this service presents to [facility] emergency department on 04/09/2017 which complaint of shortness of breath. Seen today on general medical unit. SUBJECTIVE Patient is seen today with sitter present. No psychiatric complaints, requesting info on potential placment site. Brief ROS Gait: Steady Sleep: Adequate Appetite: Adequate OBJECTIVE Mental Status Exam Presentation/Appearance: Calm and cooperative with evaluation. Lying in bed. Orientation: x3 Sensorium: Awake and alert Eye contact: Appropriate Affect: Somewhat blunted Mood: "Fine" Depression: Denies Anxiety: Denies Thought Content: - Denies SI/HI, AH/VH, PI. States and also believes they will not kill themselves. - Denies Hopeless/Helpless Thoughts Thought Process: Linear Associations: Appropriate Speech: Normal tone and rate, short responses Judgment: Fair Insight: Fair Cognition: Memory: Grossly intact Attention/Concentration: Grossly intact Fund of Knowledge: Adequate Abstractions: Not assessed MMSE: Not completed ASSESSMENT 61-year-old conserved single male with history of severe bipolar disorder requiring multiple long-term hospitalizations currently presents as psychiatrically asymptomatic. While in hospital it would be prudent to continue psychotropics as taken at home as medically able to maintain stability. He has been informed of conservatorship and conservators decision that he be placed in LTC on 04/17/17 which he states he intends to fight. He has been calm and cooperative and has not attempted to elope. Remains stable. Diagnosis Bipolar I disorder, severe, most recent episode manic by history Alcohol use disorder by history Cannabis use disorder A total of 30 minutes was spent with the patient with more than 50% of the time spent in counseling and/or coordination of care. Suggestion: - Continue sitter. Role clarified with legal who recommends continuing sitter. - If patient requests to leave please encourage patient to stay but do not restrain physically or chemically to keep in hospital. - Please order monthly Abilify Maintaina 400mg IM to be administered on 04/22/17 or as soon as possible thereafter. - Discontinue PRN medications for agitation. - Continue other psychotropics. Thank you for including psychiatry in this case we'll continue to follow. Subjective Subjective: as above Objective Last 24 Hrs of Vital Signs/I&O Current Medications Sig/Grace Start time Last Medication Dose Route Stop Time Status Admin Acetaminophen 325 MG Q6-PRN PRN 04/09 2245 AC 04/10 PO 0239 Albuterol Sulfate 2 PUF Q4P PRN 04/09 2300 AC INH Aripiprazole 400 MG ONCE ONE 04/22 1000 CAN IM 04/22 1001 Aspirin Buffered 81 MG 0800 04/10 0800 AC 04/20 PO 0752 Atorvastatin Calcium 40 MG 1700 04/10 1700 AC 04/19 PO 1659 Benztropine Mesylate 0.5 MG BID 04/10 1000 AC 04/20 PO 0921 Cinacalcet 30 MG DAILY 04/10 1000 AC 04/20 PO 0925 Epoetin Florentino 8,000 UNIT TUES THURS SAT PRN 04/10 1500 AC IV Furosemide 80 MG 0800,2200 04/10 0800 AC 04/20 PO 0752 Gabapentin 300 MG AT BEDTIME 04/10 0215 AC 04/19 PO 2157 Haloperidol 10 MG BID PRN 04/17 1600 AC IM Hydralazine HCl 20 MG BID 04/10 1000 AC 04/20 PO 0921 Labetalol HCl 100 MG BID 04/10 1000 AC 04/20 PO 0921 Lamotrigine 150 MG DAILY 04/10 1000 AC 04/20 PO 0921 Lorazepam 2 MG Q6 PRN 04/17 1600 AC IV Multivitamins 1 TAB 1000 04/10 1000 AC 04/20 PO 0921 Oxcarbazepine 600 MG BID 04/10 1000 AC 04/20 PO 0921 Pantoprazole Sodium 40 MG DAILY 04/10 1000 AC 04/20 IV 0947 Propranolol HCl 10 MG BID 04/10 1000 AC 04/20 PO 0921 Quetiapine Fumarate 400 MG AT BEDTIME 04/10 021 AC 04/19 PO 2156 Sevelamer Carbonate 2,400 MG TIDAC 04/10 0800 AC 04/20 PO 0752 Tiotropium [place] 1 PUF DAILY 04/10 1000 AC 04/20 INH 0925 Laboratory Tests 04/20/17 1100: CBC w Diff NO MAN DIFF REQ, RBC 2.90 L, MCV 91.7, MCH 30.7, RDW 19.3 H, MPV 7.3 L, Gran % 73.4, Lymphocytes % 12.3 L, Monocytes % 9.4 H, Eosinophils % 4.1, Basophils % 0.8, Absolute Granulocytes 5.8, Absolute Lymphocytes 1.0 L, Absolute Monocytes 0.7 H, Absolute Eosinophils 0.3, Absolute Basophils 0.1, PUBS MCHC 33.5 04/20/17 0900: Anion Gap 11, Estimated GFR 10 L, BUN/Creatinine Ratio 5.0 L Vital Signs Date Time Temp Pulse Resp B/P B/P Pulse O2 O2 Flow FiO2 Mean Ox Delivery Rate 04/20 0631 98.6 84 20 140/90 98 Room Air 04/19 2237 98.4 79 20 142/78 98 Room Air 04/19 2157 79 142/78 04/19 2156 79 142/78 04/19 2156 79 142/78 04/19 1305 84 190/98 04/19 1305 84 190/98 04/19 1304 84 190/98 04/19 1258 98.5 84 19 190/98 97 Room Air Intake & Output 04/20 1600 04/20 0800 04/20 0000 Intake Total 480 Output Total 1 Balance 480 -1 Intake, Oral 480 Output, Stool 1 Patient 221 lb Weight
[2017-04-20 14:55] VITALS: BP 148/84
--- NOTE | 2017-04-20 15:00 | PN- Nephrology ---
Assessment/Plan Assessment: ESRD awaiting conservatorship. Dialysis tomorrow. Suggestion: . Subjective Subjective: Pt comfortable. Has fruit cake next to him (5 lbs) Objective Vital Signs and I&Os Vital Signs Date Time Temp Pulse Resp B/P B/P Pulse O2 O2 Flow FiO2 Mean Ox Delivery Rate 04/20 1455 98.1 79 20 148/84 96 Room Air 04/20 0631 98.6 84 20 140/90 98 Room Air 04/19 2237 98.4 79 20 142/78 98 Room Air 04/19 2157 79 142/78 04/19 2156 79 142/78 04/19 2156 79 142/78 Intake & Output 04/20 1600 04/20 0400 04/19 1600 04/19 0400 04/18 1600 04/18 0400 Intake Total 480 730 600 650 720 Output Total 1 0 400 Balance 480 -1 730 200 650 720 Intake, IV 10 Intake, Oral 480 720 600 650 720 Number 0 Bowel Movements Output, Stool 1 Output, Urine 0 400 Patient 221 lb 219 lb 214 lb Weight Weight Standing Scale Bed scale Measurement Method Physical Exam: M NAd lungs clear Cor RRR Abd soft Ext neg edema Results Pertinent Lab Results: Laboratory Tests 04/20 04/20 04/19 1100 0900 1131 Chemistry Sodium (137 - 145 mmol/L) 138 Potassium (3.5 - 5.1 mmol/L) 5.0 Chloride (98 - 107 mmol/L) 104 Carbon Dioxide (22 - 30 mmol/L) 23 Anion Gap (5 - 16) 11 BUN (9 - 20 mg/dL) 28 H 15 Creatinine (0.7 - 1.2 mg/dL) 5.6 *H Estimated GFR (>60 ml/min) 10 L BUN/Creatinine Ratio (7 - 25 %) 5.0 L Hematology CBC w Diff NO MAN DIFF REQ WBC (4.8 - 10.8 /CUMM) 7.8 RBC (4.70 - 6.10 /CUMM) 2.90 L Hgb (14.0 - 18.0 G/DL) 8.9 L Hct (42 - 52 %) 26.6 L MCV (80.0 - 94.0 FL) 91.7 MCH (27.0 - 31.0 PG) 30.7 RDW (11.5 - 14.5 %) 19.3 H Plt Count (130 - 400 /CUMM) 433 H MPV (7.4 - 10.4 FL) 7.3 L Gran % (42.2 - 75.2 %) 73.4 Lymphocytes % (20.5 - 51.1 %) 12.3 L Monocytes % (1.7 - 9.3 %) 9.4 H Eosinophils % (0 - 5 %) 4.1 Basophils % (0.0 - 2.0 %) 0.8 Absolute Granulocytes (1.4 - 6.5 /CUMM) 5.8 Absolute Lymphocytes (1.2 - 3.4 /CUMM) 1.0 L Absolute Monocytes (0.10 - 0.60 /CUMM) 0.7 H Absolute Eosinophils (0.0 - 0.7 /CUMM) 0.3 Absolute Basophils (0.0 - 0.2 /CUMM) 0.1 PUBS MCHC (33.0 - 37.0 G/DL) 33.5 04/19 04/19 0733 0600 Chemistry Sodium (137 - 145 mmol/L) 134 L Cancelled Potassium (3.5 - 5.1 mmol/L) 5.4 H Cancelled Chloride (98 - 107 mmol/L) 99 Cancelled Carbon Dioxide (22 - 30 mmol/L) 24 Cancelled Anion Gap (5 - 16) 11 Cancelled BUN (9 - 20 mg/dL) 45 H Cancelled Creatinine (0.7 - 1.2 mg/dL) 7.8 *H Cancelled Estimated GFR (>60 ml/min) 7 L BUN/Creatinine Ratio (7 - 25 %) 5.8 L Cancelled Glucose (65 - 99 mg/dL) 111 H Calcium (8.4 - 10.2 mg/dL) 8.1 L Phosphorus (2.5 - 4.5 mg/dL) 2.7 Magnesium (1.6 - 2.3 mg/dL) 1.8 Albumin (3.5 - 5.0 g/dL) 2.9 L Hematology CBC w Diff NO MAN DIFF REQ Cancelled WBC (4.8 - 10.8 /CUMM) 7.5 Cancelled RBC (4.70 - 6.10 /CUMM) 2.54 L Cancelled Hgb (14.0 - 18.0 G/DL) 7.8 L Cancelled Hct (42 - 52 %) 22.9 L Cancelled MCV (80.0 - 94.0 FL) 90.1 Cancelled MCH (27.0 - 31.0 PG) 30.7 Cancelled RDW (11.5 - 14.5 %) 18.1 H Cancelled Plt Count (130 - 400 /CUMM) 405 H Cancelled MPV (7.4 - 10.4 FL) 7.5 Cancelled Gran % (42.2 - 75.2 %) 70.3 Lymphocytes % (20.5 - 51.1 %) 17.5 L Monocytes % (1.7 - 9.3 %) 5.9 Eosinophils % (0 - 5 %) 5.3 H Basophils % (0.0 - 2.0 %) 1.0 Absolute Granulocytes (1.4 - 6.5 /CUMM) 5.3 Absolute Lymphocytes (1.2 - 3.4 /CUMM) 1.3 Absolute Monocytes (0.10 - 0.60 /CUMM) 0.4 Absolute Eosinophils (0.0 - 0.7 /CUMM) 0.4 Absolute Basophils (0.0 - 0.2 /CUMM) 0.1 PUBS MCHC (33.0 - 37.0 G/DL) 34.1 Cancelled 04/18 0725 Chemistry Sodium (137 - 145 mmol/L) 135 L Potassium (3.5 - 5.1 mmol/L) 4.9 Chloride (98 - 107 mmol/L) 99 Carbon Dioxide (22 - 30 mmol/L) 25 Anion Gap (5 - 16) 12 BUN (9 - 20 mg/dL) 30 H Creatinine (0.7 - 1.2 mg/dL) 6.2 *H Estimated GFR (>60 ml/min) 9 L BUN/Creatinine Ratio (7 - 25 %) 4.8 L Hematology CBC w Diff NO MAN DIFF REQ WBC (4.8 - 10.8 /CUMM) 6.9 RBC (4.70 - 6.10 /CUMM) 2.85 L Hgb (14.0 - 18.0 G/DL) 8.7 L Hct (42 - 52 %) 25.7 L MCV (80.0 - 94.0 FL) 90.4 MCH (27.0 - 31.0 PG) 30.7 RDW (11.5 - 14.5 %) 18.8 H Plt Count (130 - 400 /CUMM) 437 H MPV (7.4 - 10.4 FL) 7.3 L Gran % (42.2 - 75.2 %) 65.3 Lymphocytes % (20.5 - 51.1 %) 19.4 L Monocytes % (1.7 - 9.3 %) 8.9 Eosinophils % (0 - 5 %) 5.2 H Basophils % (0.0 - 2.0 %) 1.2 Absolute Granulocytes (1.4 - 6.5 /CUMM) 4.5 Absolute Lymphocytes (1.2 - 3.4 /CUMM) 1.3 Absolute Monocytes (0.10 - 0.60 /CUMM) 0.6 Absolute Eosinophils (0.0 - 0.7 /CUMM) 0.4 Absolute Basophils (0.0 - 0.2 /CUMM) 0.1 PUBS MCHC (33.0 - 37.0 G/DL) 34.0
[2017-04-20 22:04] VITALS: BP 165/90
--- NOTE | 2017-04-21 06:17 | PN- Housestaff ---
Subjective Follow-up For: Symptomatic anemia(improving) Atypical chest(resolved) End-stage renal disease on dialysis. Subjective: No overnight events. Patient remained afebrile overnight. Patient seen and examined this morning. He denied any chest pain, short of breath, nausea, vomiting, abdominal pain dysuria. Patient will get his dialysis today. Review of Systems Constitutional: Reports: no symptoms. EENTM: Reports: no symptoms. Cardiovascular: Reports: no symptoms. Respiratory: Reports: no symptoms. Gastrointestinal: Reports: no symptoms. Genitourinary: Reports: no symptoms. Neurological/Psychological: Reports: no symptoms. Objective Last 24 Hrs of Vital Signs/I&O Vital Signs Date Time Temp Pulse Resp B/P B/P Pulse O2 O2 Flow FiO2 Mean Ox Delivery Rate 04/20 2204 98.5 84 18 165/90 95 Room Air 04/20 220 84 165/90 04/20 2200 84 165/90 04/20 220 84 165/90 04/20 1455 98.1 79 20 148/84 96 Room Air 04/20 0631 98.6 84 20 140/90 98 Room Air Intake & Output 04/21 0800 04/21 0000 04/20 1600 Intake Total 300 600 Output Total Balance 300 600 Intake, Oral 300 600 Physical Exam General Appearance: Alert, Oriented X3, Cooperative, No Acute Distress Skin Temp/Moisture Exam: Warm/Dry HEENT: Atraumatic, PERRLA, EOMI Neck: Supple Cardiovascular: Normal S1, Normal S2 Lungs: Clear to Auscultation Abdomen: Soft, No Tenderness Neurological: Normal Speech, Strength at 5/5 X4 Ext, Normal Tone, Sensation Intact Extremities: No Edema Assessment/Plan Assessment: 61 yo M active smoker with pmhx of ESRD on HD, HFrEF (EF 45-50%) HTN, HLD, bipolar disorder, asthma/COPD, and seizure history presented with dyspnea and acute blood loss anemia with guaiac positive stool. Acute blood loss anemia: with reported melena/guiaic positive GI bleed: -H&H on presentation 5.5/16.1 -s/p 6 units pRBC transfusion -CBC currently 8.7/26.2 -GI consultation planned for EGD/colonoscopy Sunday -Bowel prep with 1 gallon Golytely today. -IV Protonix -No NSAIDs -Continue Epogen for chronic anemia from ESRD -Nothing by mouth and going for colonoscopy and endoscopy today. We'll follow the results, GI recommendations. -Patient go the endoscopy and colonoscopy yesterday. On endoscopic there is no bleeding site identified and or colonoscopy incomplete preparation. We will get the records from [facility] if any available for last colonoscopy endoscopy. -Patient's H&H is stable we will follow CBC. Atypical chest pain: -Troponins negative for myocardial ischemia -Reportedly negative coronary angiography in 02/2017 -Takotsubo cardiomyopathy for HFrEF echo LVEF 45% -Follow up cardiology recommendations ESRD on HD: -Nephrology consultation -Continue regular hemodialysis Sunday//Sunday -Trend renal function -Continue nephrovitamin, sevalamer, sensipar and epogen injection History of bipolar disorder: -Continue the benztropine, aripiprazole and seroquel. HFrEF: -Continue the Lasix, aspirin, propranolol, labetalol, and hydralazine HLD: -Continue Lipitor for hyperlipidemia History of seizures: -Continue oxcarbazepine and lamotrigine Dialysis diet 2g sodium and 2g potassium, water restriction to 1200ml DVT prophylaxis: Mechanical and s/c heparin CODE STATUS: Full code Problem List: 1. Atypical chest pain 2. Symptomatic anemia 3. ESRD (end stage renal disease) on dialysis Pain Ratin Pain Location: none Pain Goal: Remain pain free Pain Plan: tylenol for mild pain Tomorrow's Labs & Rationales: cbc/bep
[2017-04-21 07:14] VITALS: BP 154/88; BP 94/46
--- NOTE | 2017-04-21 12:33 | PN- Nephrology ---
Assessment/Plan Assessment: 1. ESRD: HD later today 2. GI bleed: Hg stable; continue EPO w HD Suggestion: as above - OK for d/c from renal perspective --> w ould need outpt HD Tues Subjective Subjective: No complaints Awaiting psych placement Objective Vital Signs and I&Os Vital Signs Date Time Temp Pulse Resp B/P B/P Pulse O2 O2 Flow FiO2 Mean Ox Delivery Rate 04/21 0714 97.8 81 18 154/88 97 04/20 2204 98.5 84 18 165/90 95 Room Air 04/20 2200 84 165/90 04/20 220 84 165/90 04/20 220 84 165/90 04/20 1455 98.1 79 20 148/84 96 Room Air Intake & Output 04/21 1600 04/21 0400 04/20 1600 04/20 0400 04/19 1600 04/19 0400 Intake Total 300 1080 730 600 Output Total 1 0 400 Balance 300 1080 -1 730 200 Intake, IV 10 Intake, Oral 300 1080 720 600 Number 0 Bowel Movements Output, Stool 1 Output, Urine 0 400 Patient 221 lb 219 lb Weight Weight Standing Scale Measurement Method Physical Exam General Appearance: no apparent distress, alert, awake Head: atraumatic Neck: normal inspection Respiratory: normal breath sounds, no respiratory distress, quiet respiration, lungs clear Cardiovascular: regular rate/rhythm Abdomen: soft, non-tender, no organomegaly Extremities: no edema, + bruit L arm AVF Neurologic/Psychiatric: awake, alert, oriented x 3 Lymphatic: no anterior cervical choco Current Medications: Current Medications Sig/Grace Start time Last Medication Dose Route Stop Time Status Admin Acetaminophen 325 MG Q6-PRN PRN 04/09 2245 AC 04/10 PO 0239 Albuterol Sulfate 2 PUF Q4P PRN 04/09 2300 AC INH Aspirin Buffered 81 MG 0800 04/10 0800 AC 04/20 PO 0752 Atorvastatin Calcium 40 MG 1700 04/10 1700 AC 04/20 PO 1714 Benztropine Mesylate 0.5 MG BID 04/10 1000 AC 04/20 PO 2200 Cinacalcet 30 MG DAILY 04/10 1000 AC 04/20 PO 0925 Epoetin [place] 8,000 UNIT TUES THURS SAT PRN 04/10 1500 AC IV Furosemide 80 MG 0800,0 04/10 0800 AC 12/23 PO 1207 Gabapentin 300 MG AT BEDTIME 04/10 0215 AC 04/20 PO 2200 Haloperidol 10 MG BID PRN 04/17 1600 DC IM Hydralazine HCl 20 MG BID 04/10 1000 AC 04/20 PO 2200 Labetalol HCl 100 MG BID 04/10 1000 AC 04/20 PO 2200 Lamotrigine 150 MG DAILY 04/10 1000 AC 04/20 PO 0921 Lorazepam 2 MG Q6 PRN 04/17 1600 AC IV Multivitamins 1 TAB 1000 04/10 1000 AC 04/20 PO 0921 Omeprazole 40 MG DAILY AC 04/20 1325 AC 04/21 PO 0608 Oxcarbazepine 600 MG BID 04/10 1000 AC 04/20 PO 2201 Pantoprazole Sodium 40 MG DAILY 04/10 1000 DC 04/20 IV 0947 Propranolol HCl 10 MG BID 04/10 1000 AC 04/20 PO 2200 Quetiapine Fumarate 400 MG AT BEDTIME 04/10 0215 AC 04/20 PO 2200 Sevelamer Carbonate 2,400 MG TIDAC 04/10 0800 AC 04/21 PO 1207 Tiotropium [place] 1 PUF DAILY 04/10 1000 AC 04/21 INH 1207 Results Pertinent Lab Results: Laboratory Tests 04/20 04/20 04/19 1100 0900 1131 Chemistry Sodium (137 - 145 mmol/L) 138 Potassium (3.5 - 5.1 mmol/L) 5.0 Chloride (98 - 107 mmol/L) 104 Carbon Dioxide (22 - 30 mmol/L) 23 Anion Gap (5 - 16) 11 BUN (9 - 20 mg/dL) 28 H 15 Creatinine (0.7 - 1.2 mg/dL) 5.6 *H Estimated GFR (>60 ml/min) 10 L BUN/Creatinine Ratio (7 - 25 %) 5.0 L Hematology CBC w Diff NO MAN DIFF REQ WBC (4.8 - 10.8 /CUMM) 7.8 RBC (4.70 - 6.10 /CUMM) 2.90 L Hgb (14.0 - 18.0 G/DL) 8.9 L Hct (42 - 52 %) 26.6 L MCV (80.0 - 94.0 FL) 91.7 MCH (27.0 - 31.0 PG) 30.7 RDW (11.5 - 14.5 %) 19.3 H Plt Count (130 - 400 /CUMM) 433 H MPV (7.4 - 10.4 FL) 7.3 L Gran % (42.2 - 75.2 %) 73.4 Lymphocytes % (20.5 - 51.1 %) 12.3 L Monocytes % (1.7 - 9.3 %) 9.4 H Eosinophils % (0 - 5 %) 4.1 Basophils % (0.0 - 2.0 %) 0.8 Absolute Granulocytes (1.4 - 6.5 /CUMM) 5.8 Absolute Lymphocytes (1.2 - 3.4 /CUMM) 1.0 L Absolute Monocytes (0.10 - 0.60 /CUMM) 0.7 H Absolute Eosinophils (0.0 - 0.7 /CUMM) 0.3 Absolute Basophils (0.0 - 0.2 /CUMM) 0.1 PUBS MCHC (33.0 - 37.0 G/DL) 33.5 04/19 04/19 0733 0600 Chemistry Sodium (137 - 145 mmol/L) 134 L Cancelled Potassium (3.5 - 5.1 mmol/L) 5.4 H Cancelled Chloride (98 - 107 mmol/L) 99 Cancelled Carbon Dioxide (22 - 30 mmol/L) 24 Cancelled Anion Gap (5 - 16) 11 Cancelled BUN (9 - 20 mg/dL) 45 H Cancelled Creatinine (0.7 - 1.2 mg/dL) 7.8 *H Cancelled Estimated GFR (>60 ml/min) 7 L BUN/Creatinine Ratio (7 - 25 %) 5.8 L Cancelled Glucose (65 - 99 mg/dL) 111 H Calcium (8.4 - 10.2 mg/dL) 8.1 L Phosphorus (2.5 - 4.5 mg/dL) 2.7 Magnesium (1.6 - 2.3 mg/dL) 1.8 Albumin (3.5 - 5.0 g/dL) 2.9 L Hematology CBC w Diff NO MAN DIFF REQ Cancelled WBC (4.8 - 10.8 /CUMM) 7.5 Cancelled RBC (4.70 - 6.10 /CUMM) 2.54 L Cancelled Hgb (14.0 - 18.0 G/DL) 7.8 L Cancelled Hct (42 - 52 %) 22.9 L Cancelled MCV (80.0 - 94.0 FL) 90.1 Cancelled MCH (27.0 - 31.0 PG) 30.7 Cancelled RDW (11.5 - 14.5 %) 18.1 H Cancelled Plt Count (130 - 400 /CUMM) 405 H Cancelled MPV (7.4 - 10.4 FL) 7.5 Cancelled Gran % (42.2 - 75.2 %) 70.3 Lymphocytes % (20.5 - 51.1 %) 17.5 L Monocytes % (1.7 - 9.3 %) 5.9 Eosinophils % (0 - 5 %) 5.3 H Basophils % (0.0 - 2.0 %) 1.0 Absolute Granulocytes (1.4 - 6.5 /CUMM) 5.3 Absolute Lymphocytes (1.2 - 3.4 /CUMM) 1.3 Absolute Monocytes (0.10 - 0.60 /CUMM) 0.4 Absolute Eosinophils (0.0 - 0.7 /CUMM) 0.4 Absolute Basophils (0.0 - 0.2 /CUMM) 0.1 PUBS MCHC (33.0 - 37.0 G/DL) 34.1 Cancelled
[2017-04-21 16:02] LABS: ABSOLUTE BASOPHIL COUNT 0.1 /CUMM (0.0-0.2); ABSOLUTE EOSINOPHIL COUNT 0.4 /CUMM (0.0-0.7); ABSOLUTE GRANULOCYTE CT 5.4 /CUMM (1.4-6.5); ABSOLUTE LYMPH COUNT 1.4 /CUMM (1.2-3.4); ABSOLUTE MONOCYTE COUNT 0.8 /CUMM (0.10-0.60); BASOPHIL % 0.9 % (0.0-2.0); EOSINOPHIL % 4.8 % (0-5); GRANULOCYTE % 67.5 % (42.2-75.2); HEMATOCRIT 24.3 % (42-52); MEAN CORPUSCULAR HGB 30.5 PG (27.0-31.0); MEAN CORPUSCULAR HGB CONC 33.4 G/DL (33.0-37.0); MEAN CORPUSCULAR VOLUME 91.4 FL (80.0-94.0); MEAN PLATELET VOLUME 7.1 FL (7.4-10.4); PLATELET COUNT 422 /CUMM (130-400); RBC DISTRIBUTION WIDTH 18.8 % (11.5-14.5); RED BLOOD CELL CT 2.66 /CUMM (4.70-6.10)
--- NOTE | 2017-04-21 16:22 | PN- Att Addend ---
Attending Addendum Attending Brief Note Hemodialysis in progress. No new complaints vital signs are stable no new changes on physical. Continue present treatment and disposition plans. Intake & Output 04/21 1600 04/21 0400 04/20 1600 04/20 0400 04/19 1600 04/19 0400 Intake Total 300 1080 730 600 Output Total 1 0 400 Balance 300 1080 -1 730 200 Intake, IV 10 Intake, Oral 300 1080 720 600 Number 0 Bowel Movements Output, Stool 1 Output, Urine 0 400 Patient 221 lb 219 lb Weight Weight Standing Scale Measurement Method Current Medications Sig/Grace Start time Last Medication Dose Route Stop Time Status Admin Acetaminophen 325 MG Q6-PRN PRN 04/09 2245 AC 04/10 PO 0239 Albuterol Sulfate 2 PUF Q4P PRN 04/09 2300 AC INH Aspirin Buffered 81 MG 0800 04/10 0800 AC 04/20 PO 0752 Atorvastatin Calcium 40 MG 1700 04/10 1700 AC 04/20 PO 1714 Benztropine Mesylate 0.5 MG BID 04/10 1000 AC 04/20 PO 2200 Cinacalcet 30 MG DAILY 04/10 1000 AC 04/20 PO 0925 Epoetin [place] 8,000 UNIT TUES THURS SAT PRN 04/10 1500 AC IV Furosemide 80 MG 0800,2200 04/10 0800 AC 04/21 PO 1207 Gabapentin 300 MG AT BEDTIME 04/10 021 AC 04/20 PO 2200 Haloperidol 10 MG BID PRN 04/17 1600 DC IM Hydralazine HCl 20 MG BID 04/10 1000 AC 04/20 PO 2200 Labetalol HCl 100 MG BID 04/10 1000 AC 04/20 PO 2200 Lamotrigine 150 MG DAILY 04/10 1000 AC 04/20 PO 0921 Lorazepam 2 MG Q6 PRN 04/17 1600 AC IV Multivitamins 1 TAB 1000 04/10 1000 AC 04/20 PO 0921 Omeprazole 40 MG DAILY AC 04/20 1325 AC 04/21 PO 0608 Oxcarbazepine 600 MG BID 04/10 1000 AC 04/20 PO 2201 Propranolol HCl 10 MG BID 04/10 1000 AC 04/20 PO 2200 Quetiapine Fumarate 400 MG AT BEDTIME 04/10 0215 AC 04/20 PO 2200 Sevelamer Carbonate 2,400 MG TIDAC 04/10 0800 AC 04/21 PO 1207 Tiotropium [place] 1 PUF DAILY 04/10 1000 AC 04/21 INH 1207 Laboratory Tests 04/21/17 1400: Anion Gap 11, BUN Pending, Creatinine Pending, BUN/Creatinine Ratio 5.9 L, Calcium 8.5, CBC w Diff NO MAN DIFF REQ, RBC 2.66 L, MCV 91.4, MCH 30.5, RDW 18.8 H, MPV 7.1 L, Gran % 67.5, Lymphocytes % 17.0 L, Monocytes % 9.8 H, Eosinophils % 4.8, Basophils % 0.9, Absolute Granulocytes 5.4, Absolute Lymphocytes 1.4, Absolute Monocytes 0.8 H, Absolute Eosinophils 0.4, Absolute Basophils 0.1, PUBS MCHC 33.4 04/21/17 0600: Sodium Cancelled, Potassium Cancelled, Chloride Cancelled, Carbon Dioxide Cancelled, Anion Gap Cancelled, BUN Cancelled, Creatinine Cancelled, BUN/ Creatinine Ratio Cancelled, CBC w Diff Cancelled, WBC Cancelled, RBC Cancelled, Hgb Cancelled, Hct Cancelled, MCV Cancelled, MCH Cancelled, RDW Cancelled, Plt Count Cancelled, MPV Cancelled, PUBS MCHC Cancelled 04/20/17 1100: CBC w Diff NO MAN DIFF REQ, RBC 2.90 L, MCV 91.7, MCH 30.7, RDW 19.3 H, MPV 7.3 L, Gran % 73.4, Lymphocytes % 12.3 L, Monocytes % 9.4 H, Eosinophils % 4.1, Basophils % 0.8, Absolute Granulocytes 5.8, Absolute Lymphocytes 1.0 L, Absolute Monocytes 0.7 H, Absolute Eosinophils 0.3, Absolute Basophils 0.1, PUBS MCHC 33.5 04/20/17 0900: Anion Gap 11, Estimated GFR 10 L, BUN/Creatinine Ratio 5.0 L 04/19/17 1131: 04/19/17 0733: Anion Gap 11, Estimated GFR 7 L, BUN/Creatinine Ratio 5.8 L, Glucose 111 H, Calcium 8.1 L, Phosphorus 2.7, Magnesium 1.8, Albumin 2.9 L, CBC w Diff NO MAN DIFF REQ, RBC 2.54 L, MCV 90.1, MCH 30.7, RDW 18.1 H, MPV 7.5, Gran % 70.3, Lymphocytes % 17.5 L, Monocytes % 5.9, Eosinophils % 5.3 H, Basophils % 1.0, Absolute Granulocytes 5.3, Absolute Lymphocytes 1.3, Absolute Monocytes 0.4, Absolute Eosinophils 0.4, Absolute Basophils 0.1, PUBS MCHC 34.1 04/19/17 0600: Sodium Cancelled, Potassium Cancelled, Chloride Cancelled, Carbon Dioxide Cancelled, Anion Gap Cancelled, BUN Cancelled, Creatinine Cancelled, BUN/ Creatinine Ratio Cancelled, CBC w Diff Cancelled, WBC Cancelled, RBC Cancelled, Hgb Cancelled, Hct Cancelled, MCV Cancelled, MCH Cancelled, RDW Cancelled, Plt Count Cancelled, MPV Cancelled, PUBS MCHC Cancelled Vital Signs Date Time Temp Pulse Resp B/P B/P Pulse O2 O2 Flow FiO2 Mean Ox Delivery Rate 04/21 0714 97.8 81 18 154/88 97 04/20 2204 98.5 84 18 165/90 95 Room Air 04/20 2200 84 165/90 04/20 2200 84 165/90 04/20 2200 84 165
[2017-04-21 21:31] VITALS: BP 150/108
[2017-04-21 22:11] VITALS: BP 150/108
[2017-04-22 07:10] VITALS: BP 164/86
[2017-04-22 08:13] LABS: ABSOLUTE BASOPHIL COUNT 0.1 /CUMM (0.0-0.2); ABSOLUTE EOSINOPHIL COUNT 0.4 /CUMM (0.0-0.7); ABSOLUTE GRANULOCYTE CT 6.5 /CUMM (1.4-6.5); ABSOLUTE LYMPH COUNT 1.6 /CUMM (1.2-3.4); ABSOLUTE MONOCYTE COUNT 0.9 /CUMM (0.10-0.60); BASOPHIL % 1.1 % (0.0-2.0); EOSINOPHIL % 4.2 % (0-5); GRANULOCYTE % 68.9 % (42.2-75.2); MEAN CORPUSCULAR HGB 30.6 PG (27.0-31.0); MEAN CORPUSCULAR HGB CONC 33.2 G/DL (33.0-37.0); MEAN CORPUSCULAR VOLUME 92.3 FL (80.0-94.0); MEAN PLATELET VOLUME 7.1 FL (7.4-10.4); PLATELET COUNT 363 /CUMM (130-400); RBC DISTRIBUTION WIDTH 18.9 % (11.5-14.5); RED BLOOD CELL CT 2.92 /CUMM (4.70-6.10); WHITE BLOOD CELL COUNT 9.5 /CUMM (4.8-10.8)
--- NOTE | 2017-04-22 09:36 | PN- Housestaff ---
Subjective Follow-up For: Anemia ESRD Subjective: Patient was seen and examined at bedside. He is resting comfortably. He had no acute events overnight. Although he was was initially refusing his medications today, he was eventually amenable to take them. Currently offers no complaints and denies any chest pain, shortness of breath, nausea, vomiting, chills. Review of Systems Constitutional: Reports: no symptoms. Cardiovascular: Reports: no symptoms. Respiratory: Reports: no symptoms. Gastrointestinal: Reports: no symptoms. Genitourinary: Reports: no symptoms. Musculoskeletal: Reports: no symptoms. Objective Last 24 Hrs of Vital Signs/I&O Vital Signs Date Time Temp Pulse Resp B/P B/P Pulse O2 O2 Flow FiO2 Mean Ox Delivery Rate 04/22 0918 1604/22 0710 97.9 79 20 164/86 96 04/21 2211 98.5 79 20 150/108 97 Room Air 04/211 79 150/108 04/21 1844 190/104 04/21 1843 91 04/21 1842 91 190/104 Intake & Output 04/22 1600 04/22 0800 04/22 0000 Intake Total 120 Output Total Balance 120 Intake, Oral 120 Physical Exam General Appearance: Alert, Oriented X3, Cooperative, No Acute Distress Skin Temp/Moisture Exam: Warm/Dry Sepsis Skin Exam (color): Normal for Ethnicity Cardiovascular: Normal S1, Normal S2, systolic murmur Lungs: Clear to Auscultation, Normal Air Movement Abdomen: Normal Bowel Sounds, Soft, No Tenderness Neurological: Normal Gait, Normal Speech, Sensation Intact Extremities: No Clubbing, No Cyanosis, No Edema Current Medications: Current Medications Sig/Grace Start time Last Medication Dose Route Stop Time Status Admin Acetaminophen 325 MG Q6-PRN PRN 04/09 2245 AC 04/10 PO 0239 Albuterol Sulfate 2 PUF Q4P PRN 04/09 2300 AC INH Aripiprazole 400 MG Q30D 04/24 09 AC IM Aspirin Buffered 81 MG 0804/10 0800 AC 04/22 PO 0919 Atorvastatin Calcium 40 MG 1700 04/10 1700 AC 04/21 PO 1839 Benztropine Mesylate 0.5 MG BID 04/10 1000 AC 04/21 PO 1843 Cinacalcet 30 MG DAILY 04/10 1000 AC 04/22 PO 0922 Epoetin Florentino 8,000 UNIT TUES THURS SAT PRN 04/10 1500 AC IV Furosemide 80 MG 0800,2200 04/10 0800 AC 04/22 PO 0917 Gabapentin 300 MG AT BEDTIME 04/10 0215 AC 04/20 PO 2200 Hydralazine HCl 20 MG BID 04/10 1000 AC 04/22 PO 0919 Labetalol HCl 100 MG BID 04/10 1000 AC 04/22 PO 0920 Lamotrigine 150 MG DAILY 04/22 1000 AC PO Lamotrigine 150 MG DAILY 04/10 1000 DC 04/21 PO 1839 Lorazepam 2 MG Q6 PRN 04/17 1600 AC IV Multivitamins 1 TAB 1000 04/10 1000 AC 04/21 PO 1838 Omeprazole 40 MG DAILY AC 04/20 1325 AC 04/21 PO 0608 Oxcarbazepine 600 MG BID 04/10 1000 AC 04/20 PO 2201 Propranolol HCl 10 MG BID 04/10 1000 AC 04/22 PO 0918 Quetiapine Fumarate 400 MG AT BEDTIME 04/10 0215 AC 04/20 PO 2200 Sevelamer Carbonate 2,400 MG TIDAC 04/10 0800 AC 04/21 PO 1839 Tiotropium [place] 1 PUF DAILY 04/10 1000 AC 04/22 INH 0921 Last 24 Hrs of Lab/Freddy Results Last 24 Hrs of Labs/Mics: Laboratory Tests 04/22/17 0715: Anion Gap 9, Estimated GFR 13 L, BUN/Creatinine Ratio 4.7 L, CBC w Diff NO MAN DIFF REQ, RBC 2.92 L, MCV 92.3, MCH 30.6, RDW 18.9 H, MPV 7.1 L, Gran % 68.9, Lymphocytes % 16.5 L, Monocytes % 9.3, Eosinophils % 4.2, Basophils % 1.1, Absolute Granulocytes 6.5, Absolute Lymphocytes 1.6, Absolute Monocytes 0.9 H, Absolute Eosinophils 0.4, Absolute Basophils 0.1, PUBS MCHC 33.2 Assessment/Plan Assessment: 61 yo M active smoker with pmhx of ESRD on HD, HFrEF (EF 45-50%) HTN, HLD, bipolar disorder, asthma/COPD, and seizure history presented with dyspnea and acute blood loss anemia with guaiac positive stool. Acute blood loss anemia: with reported melena/guiaic positive GI bleed: -H&H on presentation 5.5/16.1 -s/p 6 units pRBC transfusion -H/H currently 9.0/27 -Continue with omeprazole by mouth 40 mg daily -No NSAIDs -Continue Epogen for chronic anemia from ESRD - On endoscopic there is no bleeding site identified and or colonoscopy incomplete preparation. ESRD on HD: -Continue regular hemodialysis Sunday//Sunday -Trend renal function -Continue nephrovitamin, sevalamer, sensipar and epogen injection History of bipolar disorder: -Continue the benztropine, aripiprazole and seroquel. HFrEF: -Continue the Lasix, aspirin, propranolol, labetalol, and hydralazine HLD: -Continue Lipitor for hyperlipidemia History of seizures: -Continue oxcarbazepine and lamotrigine Dialysis diet 2g sodium and 2g potassium, water restriction to 1200ml DVT prophylaxis: Mechanical and s/c heparin CODE STATUS: Full code Problem List: 1. Anemia 2. ESRD (end stage renal disease) on dialysis Pain Ratin Pain Location: none Pain Goal: Remain pain free Pain Plan: pain pathway Tomorrow's Labs & Rationales: none
--- NOTE | 2017-04-22 13:09 | PN- Att Addend ---
Attending Addendum Attending Brief Note No new issues comfortable in bed sitter at the bedside vital signs are stable, no changes on physical Hemodialysis Sunday still working on disposition plans. Intake & Output 04/22 1600 04/22 0400 04/21 1600 04/21 0400 04/20 1600 04/20 0400 Intake Total 120 719 968 2805 Output Total 1 Balance 120 963 276 2999 -1 Intake, Oral 120 457 218 2217 Output, Stool 1 Patient 221 lb Weight Current Medications Sig/Grace Start time Last Medication Dose Route Stop Time Status Admin Acetaminophen 325 MG Q6-PRN PRN 04/09 2245 AC 04/10 PO 0239 Albuterol Sulfate 2 PUF Q4P PRN 04/09 2300 AC INH Aripiprazole 400 MG Q30D 04/24 0900 AC IM Aspirin Buffered 81 MG 0800 04/10 0800 AC 04/22 PO 0919 Atorvastatin Calcium 40 MG 1700 04/10 1700 AC 04/21 PO 1839 Benztropine Mesylate 0.5 MG BID 04/10 1000 AC 04/21 PO 1843 Cinacalcet 30 MG DAILY 04/10 1000 AC 04/22 PO 0922 Epoetin [place]orent[place] 8,000 UNIT TUES THURS SAT PRN 04/10 1500 AC IV Furosemide 80 MG 0800,2200 04/10 0800 AC 04/22 PO 0917 Gabapentin 300 MG AT BEDTIME 04/10 021 AC 04/20 PO 2200 Hydralazine HCl 20 MG BID 04/10 1000 AC 04/22 PO 0919 Labetalol HCl 100 MG BID 04/10 1000 AC 04/22 PO 0920 Lamotrigine 150 MG DAILY 04/22 1000 AC PO Lamotrigine 150 MG DAILY 04/10 1000 DC 04/21 PO 1839 Lorazepam 2 MG Q6 PRN 04/17 1600 AC IV Multivitamins 1 TAB 1000 04/10 1000 AC 04/21 PO 1838 Omeprazole 40 MG DAILY AC 04/20 1325 AC 04/21 PO 0608 Oxcarbazepine 600 MG BID 04/10 1000 AC 04/20 PO 2201 Propranolol HCl 10 MG BID 04/10 1000 AC 04/22 PO 0918 Quetiapine Fumarate 400 MG AT BEDTIME 04/10 0215 AC 04/20 PO 2200 Sevelamer Carbonate 2,400 MG TIDAC 04/10 0800 AC 04/21 PO 1839 Tiotropium [place] 1 PUF DAILY 04/10 1000 AC 04/22 INH 0921 Laboratory Tests 04/22/17 0715: Anion Gap 9, Estimated GFR 13 L, BUN/Creatinine Ratio 4.7 L, CBC w Diff NO MAN DIFF REQ, RBC 2.92 L, MCV 92.3, MCH 30.6, RDW 18.9 H, MPV 7.1 L, Gran % 68.9, Lymphocytes % 16.5 L, Monocytes % 9.3, Eosinophils % 4.2, Basophils % 1.1, Absolute Granulocytes 6.5, Absolute Lymphocytes 1.6, Absolute Monocytes 0.9 H, Absolute Eosinophils 0.4, Absolute Basophils 0.1, [facility] MCHC 33.2 04/21/17 1400: Anion Gap 11, Estimated GFR 7 L, BUN/Creatinine Ratio 5.9 L, Calcium 8.5, CBC w Diff NO MAN DIFF REQ, RBC 2.66 L, MCV 91.4, MCH 30.5, RDW 18.8 H, MPV 7.1 L , Gran % 67.5, Lymphocytes % 17.0 L, Monocytes % 9.8 H, Eosinophils % 4.8, Basophils % 0.9, Absolute Granulocytes 5.4, Absolute Lymphocytes 1.4, Absolute Monocytes 0.8 H, Absolute Eosinophils 0.4, Absolute Basophils 0.1, PUBS MCHC 33.4 04/21/17 0600: Sodium Cancelled, Potassium Cancelled, Chloride Cancelled, Carbon Dioxide Cancelled, Anion Gap Cancelled, BUN Cancelled, Creatinine Cancelled, BUN/ Creatinine Ratio Cancelled, CBC w Diff Cancelled, WBC Cancelled, RBC Cancelled, Hgb Cancelled, Hct Cancelled, MCV Cancelled, MCH Cancelled, RDW Cancelled, Plt Count Cancelled, MPV Cancelled, PUBS MCHC Cancelled 04/20/17 1100: CBC w Diff NO MAN DIFF REQ, RBC 2.90 L, MCV 91.7, MCH 30.7, RDW 19.3 H, MPV 7.3 L, Gran % 73.4, Lymphocytes % 12.3 L, Monocytes % 9.4 H, Eosinophils % 4.1, Basophils % 0.8, Absolute Granulocytes 5.8, Absolute Lymphocytes 1.0 L, Absolute Monocytes 0.7 H, Absolute Eosinophils 0.3, Absolute Basophils 0.1, PUBS MCHC 33.5 04/20/17 0900: Anion Gap 11, Estimated GFR 10 L, BUN/Creatinine Ratio 5.0 L Vital Signs Date Time Temp Pulse Resp B/P B/P Pulse O2 O2 Flow FiO2 Mean Ox Delivery Rate 04/22 0918 04/22 0710 97.9 79 20 164/86 96 04/21 221 98.5 79 20 150/108 97 Room Air 04/21 2131 79 150/108 04/21 1844 190/104 04/21 1843 91 04/21 1842 91 190/104
[2017-04-22 15:18] VITALS: BP 160/96
[2017-04-22 21:57] VITALS: BP 168/84
--- NOTE | 2017-04-23 05:46 | PN- Housestaff ---
Subjective Follow-up For: Anemia ESRD Subjective: Patient was seen and examined at bedside. He was resting comfortably. He had no acute events overnight. Currently offers no complaints and denies any chest pain, shortness of breath, nausea, vomiting, chills. Review of Systems Constitutional: Reports: no symptoms. EENTM: Reports: no symptoms. Cardiovascular: Reports: no symptoms. Respiratory: Reports: no symptoms. Gastrointestinal: Reports: no symptoms. Genitourinary: Reports: no symptoms. Musculoskeletal: Reports: no symptoms. Objective Last 24 Hrs of Vital Signs/I&O Vital Signs Date Time Temp Pulse Resp B/P B/P Pulse O2 O2 Flow FiO2 Mean Ox Delivery Rate 04/22 2157 98.5 82 20 168/ 96 Room Air 04/22 215 82 16804/22 215 82 16804/22 215 82 04/22 1518 98.0 79 20 160/96 98 Room Air 04/22 0918 04/22 0710 97.9 79 20 164/86 96 Intake & Output 04/23 0800 04/23 0000 04/22 1600 Intake Total 120 600 Output Total Balance 120 600 Intake, Oral 120 600 Physical Exam General Appearance: Alert, Oriented X3, Cooperative, No Acute Distress Skin Temp/Moisture Exam: Warm/Dry Cardiovascular: Regular Rate, Normal S1, Normal S2, systolic murmur Lungs: Clear to Auscultation, Normal Air Movement Abdomen: Normal Bowel Sounds, Soft, No Tenderness Neurological: Normal Speech, Sensation Intact Extremities: No Clubbing, No Cyanosis, No Edema Current Medications: Current Medications Sig/Grace Start time Last Medication Dose Route Stop Time Status Admin Acetaminophen 1,000 MG ONCE ONE 04/22 1815 DC 04/22 IV 04/22 181 1831 Acetaminophen 325 MG .STK-MED ONE 04/22 1449 DC PO 04/22 1450 Acetaminophen 325 MG Q6-PRN PRN 04/09 2245 AC 04/22 PO 1448 Albuterol Sulfate 2 PUF Q4P PRN 04/09 2300 AC INH Aripiprazole 400 MG Q30D 04/24 0900 AC IM Aspirin Buffered 81 MG 0800 04/10 0800 AC 04/22 PO 0919 Atorvastatin Calcium 40 MG 1700 04/10 1700 AC 04/22 PO 1639 Benztropine Mesylate 0.5 MG BID 04/10 1000 AC 04/22 PO 2153 Cinacalcet 30 MG DAILY 04/10 1000 AC 04/22 PO 0922 Epoetin [place]orent[place] 8,000 UNIT TUES THURS SAT PRN 04/10 1500 AC IV Furosemide 80 MG 0800,2200 04/10 0800 AC 04/22 PO 2153 Gabapentin 300 MG AT BEDTIME 04/10 0215 AC 04/22 PO 2153 Hydralazine HCl 20 MG BID 04/10 1000 AC 04/22 PO 215 Labetalol HCl 100 MG BID 04/10 1000 AC 04/22 PO 2152 Lamotrigine 150 MG DAILY 04/22 1000 AC 04/22 PO 1315 Lamotrigine 150 MG DAILY 04/10 1000 DC 04/21 PO 1839 Lorazepam 2 MG Q6 PRN 04/17 1600 AC IV Multivitamins 1 TAB 1000 04/10 1000 AC 04/22 PO 1315 Omeprazole 40 MG DAILY AC 04/20 1325 AC 04/23 PO 0543 Oxcarbazepine 600 MG BID 04/10 1000 AC 04/22 PO 2151 Propranolol HCl 10 MG BID 04/10 1000 AC 04/22 PO 2153 Quetiapine Fumarate 400 MG AT BEDTIME 04/10 0215 AC 04/22 PO 2153 Sevelamer Carbonate 2,400 MG TIDAC 04/10 0800 AC 04/22 PO 1639 Tiotropium [place] 1 PUF DAILY 04/10 1000 AC 04/22 INH 0921 Last 24 Hrs of Lab/Freddy Results Last 24 Hrs of Labs/Mics: Laboratory Tests 04/23/17 0745: Anion Gap 12, Estimated GFR 8 L, BUN/Creatinine Ratio 4.4 L, CBC w Diff NO MAN DIFF REQ, RBC 3.13 L, MCV 90.6, MCH 30.3, RDW 19.0 H, MPV 6.7 L, Gran % 65.0, Lymphocytes % 18.9 L, Monocytes % 8.9, Eosinophils % 5.8 H, Basophils % 1.4, Absolute Granulocytes 4.5, Absolute Lymphocytes 1.3, Absolute Monocytes 0.6, Absolute Eosinophils 0.4, Absolute Basophils 0.1, PUBS MCHC 33.5 Assessment/Plan Assessment: 61 yo M active smoker with pmhx of ESRD on HD, HFrEF (EF 45-50%) HTN, HLD, bipolar disorder, asthma/COPD, and seizure history presented with dyspnea and acute blood loss anemia with guaiac positive stool. Acute blood loss anemia: with reported melena/guiaic positive GI bleed: -H&H on presentation 5.5/16.1 -s/p 6 units pRBC transfusion -H/H currently 9.0 -Continue with omeprazole by mouth 40 mg daily -No NSAIDs -Continue Epogen for chronic anemia from ESRD - On endoscopic there is no bleeding site identified and or colonoscopy incomplete preparation. ESRD on HD: -Continue regular hemodialysis Sunday//Sunday, next scheduled for -Trend renal function -Continue nephrovitamin, sevalamer, sensipar and epogen injection History of bipolar disorder: -Continue the benztropine, aripiprazole and seroquel. HFrEF: -Continue the Lasix, aspirin, propranolol, labetalol, and hydralazine HLD: -Continue Lipitor for hyperlipidemia History of seizures: -Continue oxcarbazepine and lamotrigine Dialysis diet 2g sodium and 2g potassium, water restriction to 1200ml DVT prophylaxis: Mechanical and s/c heparin CODE STATUS: Full code Problem List: 1. Anemia 2. ESRD (end stage renal disease) on dialysis Pain Ratin Pain Location: none Pain Goal: Remain pain free Pain Plan: pain pathway Tomorrow's Labs & Rationales: cbc, bep
[2017-04-23 06:18] VITALS: BP 164/96
[2017-04-23 08:15] LABS: ABSOLUTE BASOPHIL COUNT 0.1 /CUMM (0.0-0.2); ABSOLUTE EOSINOPHIL COUNT 0.4 /CUMM (0.0-0.7); ABSOLUTE GRANULOCYTE CT 4.5 /CUMM (1.4-6.5); ABSOLUTE LYMPH COUNT 1.3 /CUMM (1.2-3.4); ABSOLUTE MONOCYTE COUNT 0.6 /CUMM (0.10-0.60); BASOPHIL % 1.4 % (0.0-2.0); EOSINOPHIL % 5.8 % (0-5); HEMATOCRIT 28.4 % (42-52); MEAN CORPUSCULAR HGB 30.3 PG (27.0-31.0); MEAN CORPUSCULAR HGB CONC 33.5 G/DL (33.0-37.0); MEAN CORPUSCULAR VOLUME 90.6 FL (80.0-94.0); MEAN PLATELET VOLUME 6.7 FL (7.4-10.4); PLATELET COUNT 451 /CUMM (130-400); RED BLOOD CELL CT 3.13 /CUMM (4.70-6.10); WHITE BLOOD CELL COUNT 6.9 /CUMM (4.8-10.8)
[2017-04-23 14:31] VITALS: BP 160/94
--- NOTE | 2017-04-23 15:27 | PN- Att Addend ---
Attending Addendum Attending Brief Note Patient in bed sitter and brother at the bedside. Vital signs are stable, no fever with no changes on physical. Hemodialysis in a.m. continue disposition plans. Intake & Output 04/23 1600 04/23 0400 04/22 1600 04/22 0400 04/21 1600 04/21 040 Intake Total 745 120 600 120 600 300 Output Total Balance 745 120 600 120 600 300 Intake, Oral 745 120 600 120 600 300 Patient 218 lb Weight Weight Bed scale Measurement Method Current Medications Sig/Grace Start time Last Medication Dose Route Stop Time Status Admin Acetaminophen 1,000 MG ONCE ONE 04/22 1815 DC 04/22 IV 04/22 1816 1831 Acetaminophen 325 MG Q6-PRN PRN 04/09 2245 AC 04/22 PO 1448 Albuterol Sulfate 2 PUF Q4P PRN 04/09 2300 AC INH Aripiprazole 400 MG Q30D 04/24 0900 AC IM Aspirin Buffered 81 MG 0800 04/10 0800 AC 04/23 PO 0836 Atorvastatin Calcium 40 MG 1700 04/10 1700 AC 04/22 PO 1639 Benztropine Mesylate 0.5 MG BID 04/10 1000 AC 04/23 PO 0838 Cinacalcet 30 MG DAILY 04/10 1000 AC 04/23 PO 0838 Epoetin [place]orent[place] 8,000 UNIT TUES THURS SAT PRN 04/10 1500 AC IV Furosemide 80 MG 0800,2200 04/10 0800 AC 04/23 PO 0836 Gabapentin 300 MG AT BEDTIME 04/10 021 AC 04/22 PO 2153 Hydralazine HCl 20 MG BID 04/10 1000 AC 04/23 PO 0836 Labetalol HCl 100 MG BID 04/10 1000 AC 04/23 PO 0837 Lamotrigine 150 MG DAILY 04/22 1000 AC 04/23 PO 0838 Lorazepam 2 MG Q6 PRN 04/17 1600 AC IV Multivitamins 1 TAB 1000 04/10 1000 AC 04/23 PO 0838 Omeprazole 40 MG DAILY AC 04/20 1325 AC 04/23 PO 0543 Oxcarbazepine 600 MG BID 04/10 1000 AC 04/23 PO 0837 Propranolol HCl 10 MG BID 04/10 1000 AC 04/23 PO 0839 Quetiapine Fumarate 400 MG AT BEDTIME 04/10 0215 AC 04/22 PO 2153 Sevelamer Carbonate 2,400 MG TIDAC 04/10 0800 AC 04/23 PO 1351 Tiotropium [place] 1 PUF DAILY 04/10 1000 AC 04/23 INH 0837 Laboratory Tests 04/23/17 0745: Anion Gap 12, Estimated GFR 8 L, BUN/Creatinine Ratio 4.4 L, CBC w Diff NO MAN DIFF REQ, RBC 3.13 L, MCV 90.6, MCH 30.3, RDW 19.0 H, MPV 6.7 L, Gran % 65.0, Lymphocytes % 18.9 L, Monocytes % 8.9, Eosinophils % 5.8 H, Basophils % 1.4, Absolute Granulocytes 4.5, Absolute Lymphocytes 1.3, Absolute Monocytes 0.6, Absolute Eosinophils 0.4, Absolute Basophils 0.1, PUBS MCHC 33.5 04/22/17 0715: Anion Gap 9, Estimated GFR 13 L, BUN/Creatinine Ratio 4.7 L, CBC w Diff NO MAN DIFF REQ, RBC 2.92 L, MCV 92.3, MCH 30.6, RDW 18.9 H, MPV 7.1 L, Gran % 68.9, Lymphocytes % 16.5 L, Monocytes % 9.3, Eosinophils % 4.2, Basophils % 1.1, Absolute Granulocytes 6.5, Absolute Lymphocytes 1.6, Absolute Monocytes 0.9 H, Absolute Eosinophils 0.4, Absolute Basophils 0.1, PUBS MCHC 33.2 04/21/17 1400: Anion Gap 11, Estimated GFR 7 L, BUN/Creatinine Ratio 5.9 L, Calcium 8.5, CBC w Diff NO MAN DIFF REQ, RBC 2.66 L, MCV 91.4, MCH 30.5, RDW 18.8 H, MPV 7.1 L , Gran % 67.5, Lymphocytes % 17.0 L, Monocytes % 9.8 H, Eosinophils % 4.8, Basophils % 0.9, Absolute Granulocytes 5.4, Absolute Lymphocytes 1.4, Absolute Monocytes 0.8 H, Absolute Eosinophils 0.4, Absolute Basophils 0.1, PUBS MCHC 33.4 04/21/17 0600: Sodium Cancelled, Potassium Cancelled, Chloride Cancelled, Carbon Dioxide Cancelled, Anion Gap Cancelled, BUN Cancelled, Creatinine Cancelled, BUN/ Creatinine Ratio Cancelled, CBC w Diff Cancelled, WBC Cancelled, RBC Cancelled, Hgb Cancelled, Hct Cancelled, MCV Cancelled, MCH Cancelled, RDW Cancelled, Plt Count Cancelled, MPV Cancelled, PUBS MCHC Cancelled Vital Signs Date Time Temp Pulse Resp B/P B/P Pulse O2 O2 Flow FiO2 Mean Ox Delivery Rate 04/23 1431 97.9 86 20 160/94 97 Room Air 04/23 0836 146/96 04/23 0618 97.7 84 20 164/96 97 04/22 2157 98.5 82 20 168/84 96 Room Air 04/22 2153 82 168/84 04/22 215 82 168/84 04/22 2152 82
[2017-04-23 22:19] VITALS: BP 150/90
[2017-04-24 06:58] VITALS: BP 148/88
--- NOTE | 2017-04-24 07:08 | PN- Housestaff ---
Subjective Follow-up For: Symptomatic anemia ESRD on dialysis Atypical chest pain (resolved) Subjective: No overnight events. Patient remained afebrile overnight. Patient seen and examined this morning. He was lying in bed comfortably. He denied any chest pain, short of breath, nausea, vomiting, abdominal pain and dysuria. Patient is going for dialysis this morning. Patient is staying for long-term placement and he has conservator. He can't leave AMA. Review of Systems Constitutional: Reports: no symptoms. EENTM: Reports: no symptoms. Cardiovascular: Reports: no symptoms. Respiratory: Reports: no symptoms. Gastrointestinal: Reports: no symptoms. Genitourinary: Reports: no symptoms. Musculoskeletal: Reports: no symptoms. Neurological/Psychological: Reports: no symptoms. Objective Last 24 Hrs of Vital Signs/I&O Vital Signs Date Time Temp Pulse Resp B/P B/P Pulse O2 O2 Flow FiO2 Mean Ox Delivery Rate 04/24 0658 97.8 94 16 148/88 97 04/23 2219 98.0 91 20 150/90 97 Room Air 04/23 2205 90 150/90 04/23 2204 90 150/90 04/23 2203 90 150/90 04/23 1431 97.9 86 20 160/94 97 Room Air 04/23 0836 146/96 Intake & Output 04/24 0800 04/24 0000 04/23 1600 Intake Total 360 120 625 Output Total Balance 360 120 625 Intake, Oral 360 120 625 Number 0 Bowel Movements Patient 219 lb Weight Physical Exam General Appearance: Alert, Oriented X3, Cooperative, No Acute Distress Skin Temp/Moisture Exam: Warm/Dry HEENT: Atraumatic Neck: Supple Cardiovascular: Normal S1, Normal S2 Lungs: Clear to Auscultation Abdomen: Soft, No Tenderness Neurological: Normal Speech, Strength at 5/5 X4 Ext, Normal Tone, Sensation Intact Extremities: No Edema Assessment/Plan Assessment: 61 yo M active smoker with pmhx of ESRD on HD, HFrEF (EF 45-50%) HTN, HLD, bipolar disorder, asthma/COPD, and seizure history presented with dyspnea and acute blood loss anemia with guaiac positive stool. Acute blood loss anemia: -H&H on presentation 5.5/16.1 -s/p 6 units pRBC transfusion -H/H currently 9.0/27 -Continue with omeprazole by mouth 40 mg daily -No NSAIDs -Continue Epogen for chronic anemia from ESRD - On endoscopic there is no bleeding site identified and or colonoscopy incomplete preparation. ESRD on HD: -Continue regular hemodialysis Sunday//Sunday, next scheduled for -Trend renal function -Continue nephrovitamin, sevalamer, sensipar and epogen injection History of bipolar disorder: -Continue the benztropine, aripiprazole and seroquel. HFrEF: -Continue the Lasix, aspirin, propranolol, labetalol, and hydralazine. HLD: -Continue Lipitor for hyperlipidemia. History of seizures: -Continue oxcarbazepine and lamotrigine. LTC placement: - He has been informed of conservatorship and conservators decision that he be placed in LTC on 04/17/17 which he states he intends to fight. -Patient can't leave AMA. Dialysis diet 2g sodium and 2g potassium, water restriction to 1200ml DVT prophylaxis: Mechanical and s/c heparin CODE STATUS: Full code Problem List: 1. Atypical chest pain 2. Symptomatic anemia 3. ESRD (end stage renal disease) on dialysis Pain Ratin Pain Location: none Pain Goal: Remain pain free Pain Plan: tylenol for mild pain Tomorrow's Labs & Rationales: cbc/bep
[2017-04-24 08:09] LABS: ABSOLUTE BASOPHIL COUNT 0.1 /CUMM (0.0-0.2); ABSOLUTE EOSINOPHIL COUNT 0.4 /CUMM (0.0-0.7); ABSOLUTE GRANULOCYTE CT 4.4 /CUMM (1.4-6.5); ABSOLUTE LYMPH COUNT 1.5 /CUMM (1.2-3.4); ABSOLUTE MONOCYTE COUNT 0.7 /CUMM (0.10-0.60); BASOPHIL % 1.2 % (0.0-2.0); EOSINOPHIL % 5.4 % (0-5); HEMATOCRIT 25.1 % (42-52); MEAN CORPUSCULAR HGB 29.8 PG (27.0-31.0); MEAN CORPUSCULAR HGB CONC 32.5 G/DL (33.0-37.0); MEAN CORPUSCULAR VOLUME 91.6 FL (80.0-94.0); MEAN PLATELET VOLUME 6.8 FL (7.4-10.4); PLATELET COUNT 402 /CUMM (130-400); RBC DISTRIBUTION WIDTH 18.3 % (11.5-14.5); RED BLOOD CELL CT 2.75 /CUMM (4.70-6.10); WHITE BLOOD CELL COUNT 7.1 /CUMM (4.8-10.8)
[2017-04-24 08:51] LABS: ABSOLUTE BASOPHIL COUNT 0.1 /CUMM (0.0-0.2); ABSOLUTE EOSINOPHIL COUNT 0.3 /CUMM (0.0-0.7); ABSOLUTE GRANULOCYTE CT 4.8 /CUMM (1.4-6.5); ABSOLUTE LYMPH COUNT 1.4 /CUMM (1.2-3.4); ABSOLUTE MONOCYTE COUNT 0.7 /CUMM (0.10-0.60); BASOPHIL % 1.3 % (0.0-2.0); EOSINOPHIL % 4.8 % (0-5); HEMATOCRIT 25.3 % (42-52); MEAN CORPUSCULAR HGB CONC 32.9 G/DL (33.0-37.0); MEAN CORPUSCULAR VOLUME 91.3 FL (80.0-94.0); MEAN PLATELET VOLUME 6.8 FL (7.4-10.4); PLATELET COUNT 411 /CUMM (130-400); RBC DISTRIBUTION WIDTH 19.1 % (11.5-14.5); RED BLOOD CELL CT 2.77 /CUMM (4.70-6.10); WHITE BLOOD CELL COUNT 7.4 /CUMM (4.8-10.8)
--- NOTE | 2017-04-24 10:36 | PN- Nephrology ---
Assessment/Plan Assessment: ESRD - Routine HD today. Pt expressed interest in switching HD units to the [facility] in [place] as it's closer to his home. I encouraged him given the holidays and with his current social situation and being conserved that it might be better to coordinate as an outpatient. Anemia - GI Bleed - Hg stable. On high dose Epogen MBD - On sensipar and Sevelamer - parameters reasonable. Suggestion: -HD today with UF as tolerated (may end up going below EDW) -Cont TIW Epogen -Coodination of switching HD units as outpatient Please call [phone] with ?'s Subjective Subjective: Pt seen and examined on dialysis Hg stable at 8.3 - denies GI bleeding Objective Vital Signs and I&Os Vital Signs Date Time Temp Pulse Resp B/P B/P Pulse O2 O2 Flow FiO2 Mean Ox Delivery Rate 04/24 0658 97.8 94 16 148/88 97 04/23 2219 98.0 91 20 150/90 97 Room Air 04/23 220 90 150/90 04/23 2204 90 150/90 04/23 2203 90 150/90 04/23 1431 97.9 86 20 160/94 97 Room Air Intake & Output 04/24 1600 04/24 0400 04/23 1600 04/23 0400 04/22 1600 04/22 0400 Intake Total 360 120 745 120 600 120 Output Total Balance 360 120 745 120 600 120 Intake, Oral 360 120 745 120 600 120 Number 0 Bowel Movements Patient 219 lb 218 lb Weight Weight Bed scale Measurement Method Physical Exam: Gen - OK appearing HEENT - supple CV - RRR, no m/r/g Chest - clear anteriorly, no w/r/r Abd - soft, NTND Ext - no edema Neuro - AOX3, grossly nonfocal Access - LUE AVF +bruit Current Medications: Current Medications Sig/Grace Start time Last Medication Dose Route Stop Time Status Admin Acetaminophen 325 MG Q6-PRN PRN 04/09 2245 AC 04/22 PO 1448 Albuterol Sulfate 2 PUF Q4P PRN 04/09 230 AC INH Aripiprazole 400 MG Q30D 04/24 0900 AC IM Aspirin Buffered 81 MG 0800 04/10 0800 AC 04/23 PO 0836 Atorvastatin Calcium 40 MG 1700 04/10 1700 AC 04/23 PO 1629 Benztropine Mesylate 0.5 MG BID 04/10 1000 AC 04/23 PO 2204 Cinacalcet 30 MG DAILY 04/10 1000 AC 04/23 PO 0838 Epoetin Florentino 8,000 UNIT TUES THURS SAT PRN 04/10 1500 AC IV Furosemide 80 MG 0800,0 04/10 0800 AC 04/23 PO 2204 Gabapentin 300 MG AT BEDTIME 04/10 0215 AC 04/23 PO 220 Hydralazine HCl 20 MG BID 04/10 1000 AC 04/23 PO 220 Labetalol HCl 100 MG BID 04/10 1000 AC 04/23 PO 220 Lamotrigine 150 MG DAILY 04/22 1000 AC 04/23 PO 0838 Lorazepam 2 MG Q6 PRN 04/17 1600 AC IV Multivitamins 1 TAB 1000 04/10 1000 AC 04/23 PO 0838 Omeprazole 40 MG DAILY AC 04/20 1325 AC 04/24 PO 0633 Oxcarbazepine 600 MG BID 04/10 1000 AC 04/23 PO 220 Propranolol HCl 10 MG BID 04/10 1000 AC 04/23 PO 220 Quetiapine Fumarate 400 MG AT BEDTIME 04/10 0215 AC 04/23 PO 220 Sevelamer Carbonate 2,400 MG TIDAC 04/10 0800 AC 04/23 PO 1629 Tiotropium [place] 1 PUF DAILY 04/10 1000 AC 04/23 INH 0837 Results Pertinent Lab Results: Laboratory Tests 04/24 04/24 0810 0708 Chemistry Sodium Cancelled Potassium Cancelled Chloride Cancelled Carbon Dioxide Cancelled Anion Gap Cancelled BUN Cancelled Creatinine Cancelled BUN/Creatinine Ratio Cancelled Calcium Cancelled Hematology CBC w Diff NO MAN DIFF REQ WBC (4.8 - 10.8 /CUMM) 7.4 RBC (4.70 - 6.10 /CUMM) 2.77 L Hgb (14.0 - 18.0 G/DL) 8.3 L Hct (42 - 52 %) 25.3 L MCV (80.0 - 94.0 FL) 91.3 MCH (27.0 - 31.0 PG) 30.0 RDW (11.5 - 14.5 %) 19.1 H Plt Count (130 - 400 /CUMM) 411 H MPV (7.4 - 10.4 FL) 6.8 L Gran % (42.2 - 75.2 %) 65.0 Lymphocytes % (20.5 - 51.1 %) 19.5 L Monocytes % (1.7 - 9.3 %) 9.4 H Eosinophils % (0 - 5 %) 4.8 Basophils % (0.0 - 2.0 %) 1.3 Absolute Granulocytes (1.4 - 6.5 /CUMM) 4.8 Absolute Lymphocytes (1.2 - 3.4 /CUMM) 1.4 Absolute Monocytes (0.10 - 0.60 /CUMM) 0.7 H Absolute Eosinophils (0.0 - 0.7 /CUMM) 0.3 Absolute Basophils (0.0 - 0.2 /CUMM) 0.1 PUBS MCHC (33.0 - 37.0 G/DL) 32.9 L 04/24 04/23 0708 0745 Chemistry Sodium (137 - 145 mmol/L) 140 141 Potassium (3.5 - 5.1 mmol/L) 5.1 4.7 Chloride (98 - 107 mmol/L) 104 104 Carbon Dioxide (22 - 30 mmol/L) 26 25 Anion Gap (5 - 16) 10 12 BUN (9 - 20 mg/dL) 43 H 32 H Creatinine (0.7 - 1.2 mg/dL) 8.8 *H 7.2 *H Estimated GFR (>60 ml/min) 6 L 8 L BUN/Creatinine Ratio (7 - 25 %) 4.9 L 4.4 L Calcium (8.4 - 10.2 mg/dL) 8.6 Hematology CBC w Diff NO MAN DIFF REQ NO MAN DIFF REQ WBC (4.8 - 10.8 /CUMM) 7.1 6.9 RBC (4.70 - 6.10 /CUMM) 2.75 L 3.13 L Hgb (14.0 - 18.0 G/DL) 8.2 L 9.5 L Hct (42 - 52 %) 25.1 L 28.4 L MCV (80.0 - 94.0 FL) 91.6 90.6 MCH (27.0 - 31.0 PG) 29.8 30.3 RDW (11.5 - 14.5 %) 18.3 H 19.0 H Plt Count (130 - 400 /CUMM) 402 H 451 H MPV (7.4 - 10.4 FL) 6.8 L 6.7 L Gran % (42.2 - 75.2 %) 62.0 65.0 Lymphocytes % (20.5 - 51.1 %) 21.4 18.9 L Monocytes % (1.7 - 9.3 %) 10.0 H 8.9 Eosinophils % (0 - 5 %) 5.4 H 5.8 H Basophils % (0.0 - 2.0 %) 1.2 1.4 Absolute Granulocytes (1.4 - 6.5 /CUMM) 4.4 4.5 Absolute Lymphocytes (1.2 - 3.4 /CUMM) 1.5 1.3 Absolute Monocytes (0.10 - 0.60 /CUMM) 0.7 H 0.6 Absolute Eosinophils (0.0 - 0.7 /CUMM) 0.4 0.4 Absolute Basophils (0.0 - 0.2 /CUMM) 0.1 0.1 PUBS MCHC (33.0 - 37.0 G/DL) 32.5 L 33.5 04/22 04/21 0715 1400 Chemistry Sodium (137 - 145 mmol/L) 136 L 138 Potassium (3.5 - 5.1 mmol/L) 4.8 5.4 H Chloride (98 - 107 mmol/L) 102 102 Carbon Dioxide (22 - 30 mmol/L) 26 25 Anion Gap (5 - 16) 9 11 BUN (9 - 20 mg/dL) 22 H 45 H Creatinine (0.7 - 1.2 mg/dL) 4.7 H 7.6 *H Estimated GFR (>60 ml/min) 13 L 7 L BUN/Creatinine Ratio (7 - 25 %) 4.7 L 5.9 L Calcium (8.4 - 10.2 mg/dL) 8.5 Hematology CBC w Diff NO MAN DIFF REQ NO MAN DIFF REQ WBC (4.8 - 10.8 /CUMM) 9.5 8.0 RBC (4.70 - 6.10 /CUMM) 2.92 L 2.66 L Hgb (14.0 - 18.0 G/DL) 9.0 L 8.1 L Hct (42 - 52 %) 27.0 L 24.3 L MCV (80.0 - 94.0 FL) 92.3 91.4 MCH (27.0 - 31.0 PG) 30.6 30.5 RDW (11.5 - 14.5 %) 18.9 H 18.8 H Plt Count (130 - 400 /CUMM) 363 422 H MPV (7.4 - 10.4 FL) 7.1 L 7.1 L Gran % (42.2 - 75.2 %) 68.9 67.5 Lymphocytes % (20.5 - 51.1 %) 16.5 L 17.0 L Monocytes % (1.7 - 9.3 %) 9.3 9.8 H Eosinophils % (0 - 5 %) 4.2 4.8 Basophils % (0.0 - 2.0 %) 1.1 0.9 Absolute Granulocytes (1.4 - 6.5 /CUMM) 6.5 5.4 Absolute Lymphocytes (1.2 - 3.4 /CUMM) 1.6 1.4 Absolute Monocytes (0.10 - 0.60 /CUMM) 0.9 H 0.8 H Absolute Eosinophils (0.0 - 0.7 /CUMM) 0.4 0.4 Absolute Basophils (0.0 - 0.2 /CUMM) 0.1 0.1 PUBS MCHC (33.0 - 37.0 G/DL) 33.2 33.4
--- NOTE | 2017-04-24 10:48 | PN- Att Addend ---
Attending Addendum Attending Brief Note No new complaints. Vital signs are stable no fever. No new changes on physical. Hemodialysis today. Position plans continue. Current Medications Sig/Grace Start time Last Medication Dose Route Stop Time Status Admin Acetaminophen 325 MG Q6-PRN PRN 04/09 2245 AC 04/22 PO 1448 Albuterol Sulfate 2 PUF Q4P PRN 04/09 2300 AC INH Aripiprazole 400 MG Q30D 04/24 0900 AC IM Aspirin Buffered 81 MG 0800 04/10 0800 AC 04/23 PO 0836 Atorvastatin Calcium 40 MG 1700 04/10 1700 AC 04/23 PO 1629 Benztropine Mesylate 0.5 MG BID 04/10 1000 AC 04/23 PO 220 Cinacalcet 30 MG DAILY 04/10 1000 AC 04/23 PO 0838 Epoetin Florentino 8,000 UNIT TUES THURS SAT PRN 04/10 1500 AC IV Furosemide 80 MG 0800,2200 04/10 0800 AC 04/23 PO 2204 Gabapentin 300 MG AT BEDTIME 04/10 021 AC 04/23 PO 220 Hydralazine HCl 20 MG BID 04/10 1000 AC 04/23 PO 2203 Labetalol HCl 100 MG BID 04/10 1000 AC 04/23 PO 2205 Lamotrigine 150 MG DAILY 04/22 1000 AC 04/23 PO 0838 Lorazepam 2 MG Q6 PRN 04/17 1600 AC IV Multivitamins 1 TAB 1000 04/10 1000 AC 04/23 PO 0838 Omeprazole 40 MG DAILY AC 04/20 1325 AC 04/24 PO 0633 Oxcarbazepine 600 MG BID 04/10 1000 AC 04/23 PO 2205 Propranolol HCl 10 MG BID 04/10 1000 AC 04/23 PO 2204 Quetiapine Fumarate 400 MG AT BEDTIME 04/10 021 AC 04/23 PO 220 Sevelamer Carbonate 2,400 MG TIDAC 04/10 0800 AC 04/23 PO 1629 Tiotropium [place] 1 PUF DAILY 04/10 1000 AC 04/23 INH 0837 Laboratory Tests 04/24/17 0810: CBC w Diff NO MAN DIFF REQ, RBC 2.77 L, MCV 91.3, MCH 30.0, RDW 19.1 H, MPV 6.8 L, Gran % 65.0, Lymphocytes % 19.5 L, Monocytes % 9.4 H, Eosinophils % 4.8, Basophils % 1.3, Absolute Granulocytes 4.8, Absolute Lymphocytes 1.4, Absolute Monocytes 0.7 H, Absolute Eosinophils 0.3, Absolute Basophils 0.1, PUBS MCHC 32.9 L 04/24/17 0708: Sodium Cancelled, Potassium Cancelled, Chloride Cancelled, Carbon Dioxide Cancelled, Anion Gap Cancelled, BUN Cancelled, Creatinine Cancelled, BUN/ Creatinine Ratio Cancelled, Calcium Cancelled 04/24/17 0708: Anion Gap 10, Estimated GFR 6 L, BUN/Creatinine Ratio 4.9 L, Calcium 8.6, CBC w Diff NO MAN DIFF REQ, RBC 2.75 L, MCV 91.6, MCH 29.8, RDW 18.3 H, MPV 6.8 L , Gran % 62.0, Lymphocytes % 21.4, Monocytes % 10.0 H, Eosinophils % 5.4 H, Basophils % 1.2, Absolute Granulocytes 4.4, Absolute Lymphocytes 1.5, Absolute Monocytes 0.7 H, Absolute Eosinophils 0.4, Absolute Basophils 0.1, PUBS MCHC 32.5 L 04/23/17 0745: Anion Gap 12, Estimated GFR 8 L, BUN/Creatinine Ratio 4.4 L, CBC w Diff NO MAN DIFF REQ, RBC 3.13 L, MCV 90.6, MCH 30.3, RDW 19.0 H, MPV 6.7 L, Gran % 65.0, Lymphocytes % 18.9 L, Monocytes % 8.9, Eosinophils % 5.8 H, Basophils % 1.4, Absolute Granulocytes 4.5, Absolute Lymphocytes 1.3, Absolute Monocytes 0.6, Absolute Eosinophils 0.4, Absolute Basophils 0.1, PUBS MCHC 33.5 04/22/17 0715: Anion Gap 9, Estimated GFR 13 L, BUN/Creatinine Ratio 4.7 L, CBC w Diff NO MAN DIFF REQ, RBC 2.92 L, MCV 92.3, MCH 30.6, RDW 18.9 H, MPV 7.1 L, Gran % 68.9, Lymphocytes % 16.5 L, Monocytes % 9.3, Eosinophils % 4.2, Basophils % 1.1, Absolute Granulocytes 6.5, Absolute Lymphocytes 1.6, Absolute Monocytes 0.9 H, Absolute Eosinophils 0.4, Absolute Basophils 0.1, PUBS MCHC 33.2 04/21/17 1400: Anion Gap 11, Estimated GFR 7 L, BUN/Creatinine Ratio 5.9 L, Calcium 8.5, CBC w Diff NO MAN DIFF REQ, RBC 2.66 L, MCV 91.4, MCH 30.5, RDW 18.8 H, MPV 7.1 L , Gran % 67.5, Lymphocytes % 17.0 L, Monocytes % 9.8 H, Eosinophils % 4.8, Basophils % 0.9, Absolute Granulocytes 5.4, Absolute Lymphocytes 1.4, Absolute Monocytes 0.8 H, Absolute Eosinophils 0.4, Absolute Basophils 0.1, PUBS MCHC 33.4 Vital Signs Date Time Temp Pulse Resp B/P B/P Pulse O2 O2 Flow FiO2 Mean Ox Delivery Rate 04/24 0658 97.8 94 16 148/88 97 04/23 2219 98.0 91 20 150/90 97 Room Air 04/23 2205 90 150/90 04/23 2204 90 150/90 04/23 2203 90 150/90 04/23 1431 97.9 86 20 160/94 97 Room Air
[2017-04-24 13:00] VITALS: BP 180/100
[2017-04-24 14:10] VITALS: BP 168/98
[2017-04-24 18:43] VITALS: BP 178/98
[2017-04-24 21:05] VITALS: BP 144/70
[2017-04-25 06:36] VITALS: BP 180/100
--- NOTE | 2017-04-25 07:19 | PN- Housestaff ---
Subjective Follow-up For: Symptomatic anemia ESRD on dialysis Atypical chest pain (resolved) Subjective: patient had harrison blood pressure last night and he was given early dose of labetalol.patient remained afibrile over night. H e denied chest pain, SOB, nausea, vomiting, headache, abdominal pain and dysuria. We will monitor the blood pressure and if we need we will increase the dose of labetalol. Review of Systems Constitutional: Reports: no symptoms. Objective Last 24 Hrs of Vital Signs/I&O Vital Signs Date Time Temp Pulse Resp B/P B/P Pulse O2 O2 Flow FiO2 Mean Ox Delivery Rate 04/25 0808 140/70 04/25 0807 140/70 04/25 0651 92 180/100 04/25 0636 98.5 85 20 180/100 97 Room Air 04/24 2105 98.4 88 20 144/70 96 Room Air 04/24 2050 88 144/70 04/24 2049 88 144/70 04/24 1843 178/98 04/24 1729 78 190/102 04/24 1410 168/98 04/24 1302 78 180/100 04/24 1301 78 180/100 04/24 1300 78 180/100 04/24 1300 98.8 78 18 180/100 98 Room Air Intake & Output 04/25 1600 04/25 0800 04/25 0000 Intake Total 280 240 Output Total Balance 280 240 Intake, Oral 280 240 Patient 175 lb Weight Weight Bed scale Measurement Method Physical Exam General Appearance: Alert, Oriented X3, Cooperative, No Acute Distress Skin Temp/Moisture Exam: Warm/Dry HEENT: Atraumatic, PERRLA, EOMI Neck: Supple Cardiovascular: Normal S1, Normal S2 Lungs: Clear to Auscultation Abdomen: Soft, No Tenderness Neurological: Normal Speech, Strength at 5/5 X4 Ext, Normal Tone, Sensation Intact Extremities: No Edema Assessment/Plan Assessment: 61 yo M active smoker with pmhx of ESRD on HD, HFrEF (EF 45-50%) HTN, HLD, bipolar disorder, asthma/COPD, and seizure history presented with dyspnea and acute blood loss anemia with guaiac positive stool. Acute blood loss anemia: -H&H on presentation 5.5/16.1 -s/p 6 units pRBC transfusion -H/H currently 9.0 -Continue with omeprazole by mouth 40 mg daily -No NSAIDs -Continue Epogen for chronic anemia from ESRD - On endoscopic there is no bleeding site identified and or colonoscopy incomplete preparation. ESRD on HD: -Continue regular hemodialysis Sunday//Sunday, next scheduled for -Trend renal function -Continue nephrovitamin, sevalamer, sensipar and epogen injection -Patient is getting his scheduled dialysis. History of bipolar disorder: -Continue the benztropine, aripiprazole and seroquel. History of hypertension: -Patient is on 3 medications including labetalol, hydralazine and Lasix. -Last night he has hypertension and early dose of labetalol was given. -We will monitor the blood pressure and if still high we will increase the Lipitor dose. HFrEF: -Continue the Lasix, aspirin, propranolol, labetalol, and hydralazine. HLD: -Continue Lipitor for hyperlipidemia. History of seizures: -Continue oxcarbazepine and lamotrigine. LTC placement: - He has been informed of conservatorship and conservators decision that he be placed in LTC on 04/17/17 which he states he intends to fight. -Patient can't leave AMA. Dialysis diet 2g sodium and 2g potassium, water restriction to 1200ml DVT prophylaxis: Mechanical and s/c heparin CODE STATUS: Full code Problem List: 1. Atypical chest pain 2. Symptomatic anemia 3. ESRD (end stage renal disease) on dialysis Pain Ratin Pain Location: none Pain Goal: Remain pain free Pain Plan: tylenol for mild pain Tomorrow's Labs & Rationales: cbc/bep
[2017-04-25 08:44] LABS: ABSOLUTE BASOPHIL COUNT 0.1 /CUMM (0.0-0.2); ABSOLUTE EOSINOPHIL COUNT 0.4 /CUMM (0.0-0.7); ABSOLUTE GRANULOCYTE CT 4.9 /CUMM (1.4-6.5); ABSOLUTE LYMPH COUNT 1.4 /CUMM (1.2-3.4); ABSOLUTE MONOCYTE COUNT 0.8 /CUMM (0.10-0.60); BASOPHIL % 1.4 % (0.0-2.0); EOSINOPHIL % 4.8 % (0-5); GRANULOCYTE % 65.3 % (42.2-75.2); HEMATOCRIT 27.4 % (42-52); MEAN CORPUSCULAR HGB 30.3 PG (27.0-31.0); MEAN CORPUSCULAR VOLUME 91.8 FL (80.0-94.0); MEAN PLATELET VOLUME 6.9 FL (7.4-10.4); PLATELET COUNT 414 /CUMM (130-400); RBC DISTRIBUTION WIDTH 18.4 % (11.5-14.5); RED BLOOD CELL CT 2.98 /CUMM (4.70-6.10); WHITE BLOOD CELL COUNT 7.6 /CUMM (4.8-10.8)
--- NOTE | 2017-04-25 12:20 | PN- Nephrology ---
Assessment/Plan Assessment: ESRD - No HD need today. Pt expressed interest in switching HD units to the [facility] in [place] as it's closer to his home. I encouraged him given the holidays and with his current social situation and being conserved that it might be better to coordinate as an outpatient. Anemia - GI Bleed - Hg stable. On high dose Epogen MBD - On sensipar and Sevelamer - parameters reasonable. Suggestion: -HD today with UF as tolerated (may end up going below EDW) -Cont TIW Epogen -Coodination of switching HD units as outpatient Please call [phone] with ?'s Subjective Subjective: Pt without complaints hg 9.0 Objective Vital Signs and I&Os Vital Signs Date Time Temp Pulse Resp B/P B/P Pulse O2 O2 Flow FiO2 Mean Ox Delivery Rate 04/25 0808 140/70 04/25 0807 140/70 04/25 0651 92 180/100 04/25 0636 98.5 85 20 180/100 97 Room Air 04/24 2105 98.4 88 20 144/70 96 Room Air 04/24 2050 88 144/70 04/24 2049 88 144/70 04/24 1843 178/98 04/24 1729 78 190/102 Intake & Output 04/25 1600 04/25 0400 04/24 1600 04/24 0400 04/23 1600 04/23 0400 Intake Total 280 240 960 120 745 120 Output Total 4000 Balance 280 240 -3040 120 745 120 Intake, Oral 280 240 960 120 745 120 Number 0 Bowel Movements Output, 4000 Dialysate Patient 175 lb 219 lb 218 lb Weight Weight Bed scale Bed scale Measurement Method Physical Exam: Gen - OK appearing HEENT - supple CV - RRR, no m/r/g Chest - clear anteriorly, no w/r/r Abd - soft, NTND Ext - no edema Neuro - AOX3, grossly nonfocal Access - LUE AVF +bruit Current Medications: Current Medications Sig/Grace Start time Last Medication Dose Route Stop Time Status Admin Acetaminophen 325 MG Q6-PRN PRN 04/09 2245 AC 04/22 PO 1448 Albuterol Sulfate 2 PUF Q4P PRN 04/09 2300 AC INH Aripiprazole 400 MG Q30D 04/24 09 AC 04/24 IM 1330 Aspirin Buffered 81 MG 0804/10 0800 AC 04/25 PO 0808 Atorvastatin Calcium 40 MG 1700 04/10 1700 AC 04/24 PO 1648 Benztropine Mesylate 0.5 MG BID 04/10 1000 AC 04/25 PO 0807 Cinacalcet 30 MG DAILY 04/10 1000 AC 04/25 PO 0808 Epoetin Florentino 8,000 UNIT TUES THURS SAT PRN 04/10 1500 AC IV Furosemide 80 MG 0800,2200 04/10 0800 AC 04/25 PO 0807 Gabapentin 300 MG AT BEDTIME 04/10 0215 AC 04/24 PO 2050 Hydralazine HCl 20 MG BID 04/10 1000 AC 04/25 PO 0808 Labetalol HCl 100 MG BID 04/10 1000 AC 04/25 PO 0651 Lamotrigine 150 MG DAILY 04/22 1000 AC 04/25 PO 0808 Lorazepam 2 MG Q6 PRN 04/17 1600 DC IV Multivitamins 1 TAB 1000 04/10 1000 AC 04/25 PO 0808 Omeprazole 40 MG DAILY AC 04/20 1325 AC 04/25 PO 0623 Oxcarbazepine 600 MG BID 04/10 1000 AC 04/25 PO 0807 Propranolol HCl 10 MG BID 04/10 1000 AC 04/25 PO 0807 Quetiapine Fumarate 400 MG AT BEDTIME 04/10 021 AC 04/24 PO 2050 Sevelamer Carbonate 2,400 MG TIDAC 04/10 0800 AC 04/25 PO 1203 Tiotropium [place] 1 PUF DAILY 04/10 1000 AC 04/25 INH 1203 Results Pertinent Lab Results: Laboratory Tests 04/25 04/24 0728 0810 Chemistry Sodium (137 - 145 mmol/L) 143 Potassium (3.5 - 5.1 mmol/L) 5.0 Chloride (98 - 107 mmol/L) 104 Carbon Dioxide (22 - 30 mmol/L) 27 Anion Gap (5 - 16) 12 BUN (9 - 20 mg/dL) 27 H Creatinine (0.7 - 1.2 mg/dL) 6.0 *H Estimated GFR (>60 ml/min) 10 L BUN/Creatinine Ratio (7 - 25 %) 4.5 L Hematology CBC w Diff NO MAN DIFF REQ NO MAN DIFF REQ WBC (4.8 - 10.8 /CUMM) 7.6 7.4 RBC (4.70 - 6.10 /CUMM) 2.98 L 2.77 L Hgb (14.0 - 18.0 G/DL) 9.0 L 8.3 L Hct (42 - 52 %) 27.4 L 25.3 L MCV (80.0 - 94.0 FL) 91.8 91.3 MCH (27.0 - 31.0 PG) 30.3 30.0 RDW (11.5 - 14.5 %) 18.4 H 19.1 H Plt Count (130 - 400 /CUMM) 414 H 411 H MPV (7.4 - 10.4 FL) 6.9 L 6.8 L Gran % (42.2 - 75.2 %) 65.3 65.0 Lymphocytes % (20.5 - 51.1 %) 18.4 L 19.5 L Monocytes % (1.7 - 9.3 %) 10.1 H 9.4 H Eosinophils % (0 - 5 %) 4.8 4.8 Basophils % (0.0 - 2.0 %) 1.4 1.3 Absolute Granulocytes (1.4 - 6.5 /CUMM) 4.9 4.8 Absolute Lymphocytes (1.2 - 3.4 /CUMM) 1.4 1.4 Absolute Monocytes (0.10 - 0.60 /CUMM) 0.8 H 0.7 H Absolute Eosinophils (0.0 - 0.7 /CUMM) 0.4 0.3 Absolute Basophils (0.0 - 0.2 /CUMM) 0.1 0.1 PUBS MCHC (33.0 - 37.0 G/DL) 33.0 32.9 L 04/24 04/24 0708 0708 Chemistry Sodium (137 - 145 mmol/L) Cancelled 140 Potassium (3.5 - 5.1 mmol/L) Cancelled 5.1 Chloride (98 - 107 mmol/L) Cancelled 104 Carbon Dioxide (22 - 30 mmol/L) Cancelled 26 Anion Gap (5 - 16) Cancelled 10 BUN (9 - 20 mg/dL) Cancelled 43 H Creatinine (0.7 - 1.2 mg/dL) Cancelled 8.8 *H Estimated GFR (>60 ml/min) 6 L BUN/Creatinine Ratio (7 - 25 %) Cancelled 4.9 L Calcium (8.4 - 10.2 mg/dL) Cancelled 8.6 Hematology CBC w Diff NO MAN DIFF REQ WBC (4.8 - 10.8 /CUMM) 7.1 RBC (4.70 - 6.10 /CUMM) 2.75 L Hgb (14.0 - 18.0 G/DL) 8.2 L Hct (42 - 52 %) 25.1 L MCV (80.0 - 94.0 FL) 91.6 MCH (27.0 - 31.0 PG) 29.8 RDW (11.5 - 14.5 %) 18.3 H Plt Count (130 - 400 /CUMM) 402 H MPV (7.4 - 10.4 FL) 6.8 L Gran % (42.2 - 75.2 %) 62.0 Lymphocytes % (20.5 - 51.1 %) 21.4 Monocytes % (1.7 - 9.3 %) 10.0 H Eosinophils % (0 - 5 %) 5.4 H Basophils % (0.0 - 2.0 %) 1.2 Absolute Granulocytes (1.4 - 6.5 /CUMM) 4.4 Absolute Lymphocytes (1.2 - 3.4 /CUMM) 1.5 Absolute Monocytes (0.10 - 0.60 /CUMM) 0.7 H Absolute Eosinophils (0.0 - 0.7 /CUMM) 0.4 Absolute Basophils (0.0 - 0.2 /CUMM) 0.1 PUBS MCHC (33.0 - 37.0 G/DL) 32.5 L 12/25 0745 Chemistry Sodium (137 - 145 mmol/L) 141 Potassium (3.5 - 5.1 mmol/L) 4.7 Chloride (98 - 107 mmol/L) 104 Carbon Dioxide (22 - 30 mmol/L) 25 Anion Gap (5 - 16) 12 BUN (9 - 20 mg/dL) 32 H Creatinine (0.7 - 1.2 mg/dL) 7.2 *H Estimated GFR (>60 ml/min) 8 L BUN/Creatinine Ratio (7 - 25 %) 4.4 L Hematology CBC w Diff NO MAN DIFF REQ WBC (4.8 - 10.8 /CUMM) 6.9 RBC (4.70 - 6.10 /CUMM) 3.13 L Hgb (14.0 - 18.0 G/DL) 9.5 L Hct (42 - 52 %) 28.4 L MCV (80.0 - 94.0 FL) 90.6 MCH (27.0 - 31.0 PG) 30.3 RDW (11.5 - 14.5 %) 19.0 H Plt Count (130 - 400 /CUMM) 451 H MPV (7.4 - 10.4 FL) 6.7 L Gran % (42.2 - 75.2 %) 65.0 Lymphocytes % (20.5 - 51.1 %) 18.9 L Monocytes % (1.7 - 9.3 %) 8.9 Eosinophils % (0 - 5 %) 5.8 H Basophils % (0.0 - 2.0 %) 1.4 Absolute Granulocytes (1.4 - 6.5 /CUMM) 4.5 Absolute Lymphocytes (1.2 - 3.4 /CUMM) 1.3 Absolute Monocytes (0.10 - 0.60 /CUMM) 0.6 Absolute Eosinophils (0.0 - 0.7 /CUMM) 0.4 Absolute Basophils (0.0 - 0.2 /CUMM) 0.1 PUBS MCHC (33.0 - 37.0 G/DL) 33.5 Imaging/Other Studies: None new
--- NOTE | 2017-04-25 13:39 | PN- Att Addend ---
Attending Addendum Attending Brief Note No new complaints, vital signs are stable no fever no changes on physical. Disposition plans continue hemodialysis treatment times a week Intake & Output 04/25 1600 04/25 0400 04/24 1600 04/24 0400 04/23 1600 04/23 0400 Intake Total 280 240 960 120 745 120 Output Total 4000 Balance 280 240 -3040 120 745 120 Intake, Oral 280 240 960 120 745 120 Number 0 Bowel Movements Output, 4000 Dialysate Patient 175 lb 219 lb 218 lb Weight Weight Bed scale Bed scale Measurement Method Current Medications Sig/Grace Start time Last Medication Dose Route Stop Time Status Admin Acetaminophen 325 MG Q6-PRN PRN 04/09 2245 AC 04/22 PO 1448 Albuterol Sulfate 2 PUF Q4P PRN 04/09 2300 AC INH Aripiprazole 400 MG Q30D 04/24 0900 AC 04/24 IM 1330 Aspirin Buffered 81 MG 0800 04/10 0800 AC 04/25 PO 0808 Atorvastatin Calcium 40 MG 1700 04/10 1700 AC 04/24 PO 1648 Benztropine Mesylate 0.5 MG BID 04/10 1000 AC 04/25 PO 0807 Cinacalcet 30 MG DAILY 04/10 1000 AC 04/25 PO 0808 Epoetin Florentino 8,000 UNIT TUES THURS SAT PRN 04/10 1500 AC IV Furosemide 80 MG 0800,2200 04/10 0800 AC 04/25 PO 0807 Gabapentin 300 MG AT BEDTIME 04/10 021 AC 04/24 PO 2050 Hydralazine HCl 20 MG BID 04/10 1000 AC 04/25 PO 0808 Labetalol HCl 100 MG BID 04/10 1000 AC 04/25 PO 0651 Lamotrigine 150 MG DAILY 04/22 1000 AC 04/25 PO 0808 Lorazepam 2 MG Q6 PRN 04/17 1600 DC IV Multivitamins 1 TAB 1000 04/10 1000 AC 04/25 PO 0808 Omeprazole 40 MG DAILY AC 04/20 1325 AC 04/25 PO 0623 Oxcarbazepine 600 MG BID 04/10 1000 AC 04/25 PO 0807 Propranolol HCl 10 MG BID 04/10 1000 AC 04/25 PO 0807 Quetiapine Fumarate 400 MG AT BEDTIME 04/10 0215 AC 04/24 PO 2050 Sevelamer Carbonate 2,400 MG TIDAC 04/10 0800 AC 04/25 PO 1203 Tiotropium [place] 1 PUF DAILY 04/10 1000 AC 04/25 INH 1203 Laboratory Tests 04/25/17 0728: Anion Gap 12, Estimated GFR 10 L, BUN/Creatinine Ratio 4.5 L, CBC w Diff NO MAN DIFF REQ, RBC 2.98 L, MCV 91.8, MCH 30.3, RDW 18.4 H, MPV 6.9 L, Gran % 65.3, Lymphocytes % 18.4 L, Monocytes % 10.1 H, Eosinophils % 4.8, Basophils % 1.4, Absolute Granulocytes 4.9, Absolute Lymphocytes 1.4, Absolute Monocytes 0.8 H, Absolute Eosinophils 0.4, Absolute Basophils 0.1, PUBS MCHC 33.0 04/24/17 0810: CBC w Diff NO MAN DIFF REQ, RBC 2.77 L, MCV 91.3, MCH 30.0, RDW 19.1 H, MPV 6.8 L, Gran % 65.0, Lymphocytes % 19.5 L, Monocytes % 9.4 H, Eosinophils % 4.8, Basophils % 1.3, Absolute Granulocytes 4.8, Absolute Lymphocytes 1.4, Absolute Monocytes 0.7 H, Absolute Eosinophils 0.3, Absolute Basophils 0.1, PUBS MCHC 32.9 L 04/24/17 0708: Sodium Cancelled, Potassium Cancelled, Chloride Cancelled, Carbon Dioxide Cancelled, Anion Gap Cancelled, BUN Cancelled, Creatinine Cancelled, BUN/ Creatinine Ratio Cancelled, Calcium Cancelled 04/24/17 0708: Anion Gap 10, Estimated GFR 6 L, BUN/Creatinine Ratio 4.9 L, Calcium 8.6, CBC w Diff NO MAN DIFF REQ, RBC 2.75 L, MCV 91.6, MCH 29.8, RDW 18.3 H, MPV 6.8 L , Gran % 62.0, Lymphocytes % 21.4, Monocytes % 10.0 H, Eosinophils % 5.4 H, Basophils % 1.2, Absolute Granulocytes 4.4, Absolute Lymphocytes 1.5, Absolute Monocytes 0.7 H, Absolute Eosinophils 0.4, Absolute Basophils 0.1, PUBS MCHC 32.5 L 04/23/17 0745: Anion Gap 12, Estimated GFR 8 L, BUN/Creatinine Ratio 4.4 L, CBC w Diff NO MAN DIFF REQ, RBC 3.13 L, MCV 90.6, MCH 30.3, RDW 19.0 H, MPV 6.7 L, Gran % 65.0, Lymphocytes % 18.9 L, Monocytes % 8.9, Eosinophils % 5.8 H, Basophils % 1.4, Absolute Granulocytes 4.5, Absolute Lymphocytes 1.3, Absolute Monocytes 0.6, Absolute Eosinophils 0.4, Absolute Basophils 0.1, PUBS MCHC 33.5 Vital Signs Date Time Temp Pulse Resp B/P B/P Pulse O2 O2 Flow FiO2 Mean Ox Delivery Rate 04/25 0808 140/70 04/25 0807 140/70 04/25 0651 92 180/100 04/25 0636 98.5 85 20 180/100 97 Room Air 04/24 2105 98.4 88 20 144/70 96 Room Air 04/24 2050 88 144/70 04/24 2049 88 144/70 04/24 1843 178/98 04/24 1729 78 190/102 04/24 1410 168/98
[2017-04-25 14:57] VITALS: BP 160/90
[2017-04-25 22:29] VITALS: BP 153/96
[2017-04-26 06:27] VITALS: BP 164/82
--- NOTE | 2017-04-26 07:24 | PN- Housestaff ---
Subjective Follow-up For: Symptomatic anemia ESRD on dialysis Atypical chest pain (resolved) Subjective: No night events. Patient maintained afebrile overnight. Patient seen and examined this morning. He was lying in bed comfortably. He denied any chest pain, short of breath, nausea, vomiting, abdominal pain and dysuria. Patient is going for schedule dialysis for today. Patient is staying because he needs long -term placement and he has conservator. Review of Systems Constitutional: Reports: no symptoms. EENTM: Reports: no symptoms. Cardiovascular: Reports: no symptoms. Respiratory: Reports: no symptoms. Gastrointestinal: Reports: no symptoms. Genitourinary: Reports: no symptoms. Neurological/Psychological: Reports: no symptoms. Objective Last 24 Hrs of Vital Signs/I&O Vital Signs Date Time Temp Pulse Resp B/P B/P Pulse O2 O2 Flow FiO2 Mean Ox Delivery Rate 04/26 627 98.2 87 20 164/82 95 04/25 2242 90 153/96 04/25 2242 90 153/96 04/25 2242 90 153/96 04/25 2229 98.8 90 18 153/96 98 Room Air 04/25 1457 98.4 83 20 160/90 98 Room Air Intake & Output 04/26 1600 04/26 0800 04/26 0000 Intake Total 240 600 Output Total Balance 240 600 Intake, Oral 240 600 Patient 217 lb Weight Physical Exam General Appearance: Alert, Oriented X3, Cooperative, No Acute Distress Skin Temp/Moisture Exam: Warm/Dry HEENT: Atraumatic, PERRLA, EOMI Neck: Supple Cardiovascular: Normal S1, Normal S2 Lungs: Clear to Auscultation Abdomen: Soft, No Tenderness Neurological: Normal Speech, Strength at 5/5 X4 Ext, Normal Tone, Sensation Intact Extremities: No Edema Assessment/Plan Assessment: 61 yo M active smoker with pmhx of ESRD on HD, HFrEF (EF 45-50%) HTN, HLD, bipolar disorder, asthma/COPD, and seizure history presented with dyspnea and acute blood loss anemia with guaiac positive stool. Acute blood loss anemia: -H&H on presentation 5.5/16.1 -s/p 6 units pRBC transfusion -H/H currently 9.0 -Continue with omeprazole by mouth 40 mg daily -No NSAIDs -Continue Epogen for chronic anemia from ESRD - On endoscopic there is no bleeding site identified and or colonoscopy incomplete preparation. -Patient is maintaining his hemoglobin above 8. ESRD on HD: -Continue regular hemodialysis Sunday//Sunday, next scheduled for -Trend renal function -Continue nephrovitamin, sevalamer, sensipar and epogen injection -Patient is getting his scheduled dialysis. History of bipolar disorder: -Continue the benztropine, aripiprazole and seroquel. History of hypertension: -Patient is on 3 medications including labetalol, hydralazine and Lasix. -Last night he has hypertension and early dose of labetalol was given. -We will monitor the blood pressure and if still high we will increase the Lipitor dose. HFrEF: -Continue the Lasix, aspirin, propranolol, labetalol, and hydralazine. HLD: -Continue Lipitor for hyperlipidemia. History of seizures: -Continue oxcarbazepine and lamotrigine. LTC placement: - He has been informed of conservatorship and conservators decision that he be placed in LTC on 04/17/17 which he states he intends to fight. -Patient can't leave AMA. Dialysis diet 2g sodium and 2g potassium, water restriction to 1200ml DVT prophylaxis: Mechanical and s/c heparin CODE STATUS: Full code Problem List: 1. Atypical chest pain 2. Symptomatic anemia 3. GI bleed Pain Ratin Pain Location: NONE Pain Goal: Remain pain free Pain Plan: TYLENOL FOR MILD PAIN Tomorrow's Labs & Rationales: BEP
[2017-04-26 09:14] LABS: ABSOLUTE BASOPHIL COUNT 0.1 /CUMM (0.0-0.2); ABSOLUTE EOSINOPHIL COUNT 0.4 /CUMM (0.0-0.7); ABSOLUTE GRANULOCYTE CT 4.5 /CUMM (1.4-6.5); ABSOLUTE LYMPH COUNT 1.4 /CUMM (1.2-3.4); ABSOLUTE MONOCYTE COUNT 0.5 /CUMM (0.10-0.60); BASOPHIL % 1.2 % (0.0-2.0); EOSINOPHIL % 5.7 % (0-5); GRANULOCYTE % 64.8 % (42.2-75.2); HEMATOCRIT 25.8 % (42-52); MEAN CORPUSCULAR HGB 30.5 PG (27.0-31.0); MEAN CORPUSCULAR HGB CONC 33.4 G/DL (33.0-37.0); MEAN CORPUSCULAR VOLUME 91.2 FL (80.0-94.0); MEAN PLATELET VOLUME 7.1 FL (7.4-10.4); PLATELET COUNT 369 /CUMM (130-400); RED BLOOD CELL CT 2.83 /CUMM (4.70-6.10)
--- NOTE | 2017-04-26 09:15 | PN- Nephrology ---
Assessment/Plan Assessment: 1. End-stage renal disease. Next Dialysis will be on Sunday Suggestion: 1. Continue with strict I's and O's and daily weights. 2. If the weights are to be believed he gained 5.9 kg above his EDW. Suggest maintaining a fluid restriction of 500 mL above daily urinary output. Uric rather an uric would favor limiting his fluids to 1000 mL a day. Subjective Subjective: Patient seen with hemodialysis in progress no complaints offered. Objective Vital Signs and I&Os Vital Signs Date Time Temp Pulse Resp B/P B/P Pulse O2 O2 Flow FiO2 Mean Ox Delivery Rate 04/26 627 98.2 87 20 164/82 95 04/25 224 90 153/96 04/25 224 90 153/96 04/25 224 90 153/96 04/259 98.8 90 18 153/96 98 Room Air 04/25 1457 98.4 83 20 160/90 98 Room Air Intake & Output 04/26 1600 04/26 0400 04/25 1600 04/25 0400 04/24 1600 04/24 0400 Intake Total 240 600 880 240 960 120 Output Total 4000 Balance 240 600 880 240 -3040 120 Intake, Oral 240 600 880 240 960 120 Number 0 Bowel Movements Output, 4000 Dialysate Patient 217 lb 175 lb 219 lb Weight Weight Bed scale Measurement Method Physical Exam General Appearance: well developed/nourished, no apparent distress, alert, awake Head: atraumatic, normal appearance Ears, Nose, Throat: normal pharynx, normal ENT inspection, hearing grossly normal Neck: normal inspection, supple, trachea mid line, no midline tenderness Respiratory: normal breath sounds, chest non-tender Cardiovascular: regular rate/rhythm, edema Abdomen: normal bowel sounds, soft, non-tender, no organomegaly Back: normal inspection, normal range of motion Extremities: normal inspection, no edema Neurologic/Psychiatric: no motor/sensory deficits, awake, alert Skin: intact, normal color Current Medications: Current Medications Sig/Grace Start time Last Medication Dose Route Stop Time Status Admin Acetaminophen 325 MG Q6-PRN PRN 04/09 2245 AC 04/22 PO 1448 Albuterol Sulfate 2 PUF Q4P PRN 04/09 2300 AC INH Aripiprazole 400 MG Q30D 04/24 09 AC 04/24 IM 1330 Aspirin Buffered 81 MG 0804/10 0800 AC 04/25 PO 0808 Atorvastatin Calcium 40 MG 1700 04/10 1700 AC 04/25 PO 1806 Benztropine Mesylate 0.5 MG BID 04/10 1000 AC 04/25 PO 2240 Cinacalcet 30 MG DAILY 04/10 1000 AC 04/25 PO 0808 Epoetin Florent[place] 8,000 UNIT TUES THURS SAT PRN 04/10 1500 AC IV Furosemide 80 MG 0800,2200 04/10 0800 AC 04/25 PO 2241 Gabapentin 300 MG AT BEDTIME 04/10 0215 AC 04/25 PO 2240 Hydralazine HCl 20 MG BID 04/10 1000 AC 04/25 PO 2242 Labetalol HCl 100 MG BID 04/10 1000 AC 04/25 PO 2242 Lamotrigine 150 MG DAILY 04/22 1000 AC 04/25 PO 0808 Multivitamins 1 TAB 1000 04/10 1000 AC 04/25 PO 0808 Omeprazole 40 MG DAILY AC 04/20 1325 AC 04/25 PO 0623 Oxcarbazepine 600 MG BID 04/10 1000 AC 04/25 PO 2240 Propranolol HCl 10 MG BID 04/10 1000 AC 04/25 PO 2242 Quetiapine Fumarate 400 MG AT BEDTIME 04/10 0215 AC 04/25 PO 2240 Sevelamer Carbonate 2,400 MG TIDAC 04/10 0800 AC 04/25 PO 1811 Tiotropium [place] 1 PUF DAILY 04/10 1000 AC 04/25 INH 1203 Results Pertinent Lab Results: Laboratory Tests 04/26 04/26 04/26 0901 0755 0737 Chemistry Sodium Cancelled Pending Pending Potassium Cancelled Pending Pending Chloride Cancelled Pending Pending Carbon Dioxide Cancelled Pending Pending Anion Gap Cancelled Pending Pending BUN Cancelled Pending Pending Creatinine Cancelled Pending Pending BUN/Creatinine Ratio Cancelled Pending Pending Glucose Pending Calcium Pending Phosphorus Pending Magnesium Pending Albumin Pending Hematology CBC w Diff Pending Pending WBC Pending Pending RBC Pending Pending Hgb Pending Pending Hct Pending Pending MCV Pending Pending MCH Pending Pending RDW Pending Pending Plt Count Pending Pending MPV Pending Pending PUBS MCHC Pending Pending 04/25 04/24 0728 0810 Chemistry Sodium (137 - 145 mmol/L) 143 Potassium (3.5 - 5.1 mmol/L) 5.0 Chloride (98 - 107 mmol/L) 104 Carbon Dioxide (22 - 30 mmol/L) 27 Anion Gap (5 - 16) 12 BUN (9 - 20 mg/dL) 27 H Creatinine (0.7 - 1.2 mg/dL) 6.0 *H Estimated GFR (>60 ml/min) 10 L BUN/Creatinine Ratio (7 - 25 %) 4.5 L Hematology CBC w Diff NO MAN DIFF REQ NO MAN DIFF REQ WBC (4.8 - 10.8 /CUMM) 7.6 7.4 RBC (4.70 - 6.10 /CUMM) 2.98 L 2.77 L Hgb (14.0 - 18.0 G/DL) 9.0 L 8.3 L Hct (42 - 52 %) 27.4 L 25.3 L MCV (80.0 - 94.0 FL) 91.8 91.3 MCH (27.0 - 31.0 PG) 30.3 30.0 RDW (11.5 - 14.5 %) 18.4 H 19.1 H Plt Count (130 - 400 /CUMM) 414 H 411 H MPV (7.4 - 10.4 FL) 6.9 L 6.8 L Gran % (42.2 - 75.2 %) 65.3 65.0 Lymphocytes % (20.5 - 51.1 %) 18.4 L 19.5 L Monocytes % (1.7 - 9.3 %) 10.1 H 9.4 H Eosinophils % (0 - 5 %) 4.8 4.8 Basophils % (0.0 - 2.0 %) 1.4 1.3 Absolute Granulocytes (1.4 - 6.5 /CUMM) 4.9 4.8 Absolute Lymphocytes (1.2 - 3.4 /CUMM) 1.4 1.4 Absolute Monocytes (0.10 - 0.60 /CUMM) 0.8 H 0.7 H Absolute Eosinophils (0.0 - 0.7 /CUMM) 0.4 0.3 Absolute Basophils (0.0 - 0.2 /CUMM) 0.1 0.1 PUBS MCHC (33.0 - 37.0 G/DL) 33.0 32.9 L 12/26 12/26 0708 0708 Chemistry Sodium (137 - 145 mmol/L) Cancelled 140 Potassium (3.5 - 5.1 mmol/L) Cancelled 5.1 Chloride (98 - 107 mmol/L) Cancelled 104 Carbon Dioxide (22 - 30 mmol/L) Cancelled 26 Anion Gap (5 - 16) Cancelled 10 BUN (9 - 20 mg/dL) Cancelled 43 H Creatinine (0.7 - 1.2 mg/dL) Cancelled 8.8 *H Estimated GFR (>60 ml/min) 6 L BUN/Creatinine Ratio (7 - 25 %) Cancelled 4.9 L Calcium (8.4 - 10.2 mg/dL) Cancelled 8.6 Hematology CBC w Diff NO MAN DIFF REQ WBC (4.8 - 10.8 /CUMM) 7.1 RBC (4.70 - 6.10 /CUMM) 2.75 L Hgb (14.0 - 18.0 G/DL) 8.2 L Hct (42 - 52 %) 25.1 L MCV (80.0 - 94.0 FL) 91.6 MCH (27.0 - 31.0 PG) 29.8 RDW (11.5 - 14.5 %) 18.3 H Plt Count (130 - 400 /CUMM) 402 H MPV (7.4 - 10.4 FL) 6.8 L Gran % (42.2 - 75.2 %) 62.0 Lymphocytes % (20.5 - 51.1 %) 21.4 Monocytes % (1.7 - 9.3 %) 10.0 H Eosinophils % (0 - 5 %) 5.4 H Basophils % (0.0 - 2.0 %) 1.2 Absolute Granulocytes (1.4 - 6.5 /CUMM) 4.4 Absolute Lymphocytes (1.2 - 3.4 /CUMM) 1.5 Absolute Monocytes (0.10 - 0.60 /CUMM) 0.7 H Absolute Eosinophils (0.0 - 0.7 /CUMM) 0.4 Absolute Basophils (0.0 - 0.2 /CUMM) 0.1 PUBS MCHC (33.0 - 37.0 G/DL) 32.5 L
[2017-04-26 09:42] LABS: ABSOLUTE BASOPHIL COUNT 0.1 /CUMM (0.0-0.2); ABSOLUTE EOSINOPHIL COUNT 0.5 /CUMM (0.0-0.7); ABSOLUTE GRANULOCYTE CT 5.1 /CUMM (1.4-6.5); ABSOLUTE LYMPH COUNT 1.7 /CUMM (1.2-3.4); ABSOLUTE MONOCYTE COUNT 0.7 /CUMM (0.10-0.60); BASOPHIL % 0.9 % (0.0-2.0); EOSINOPHIL % 6.1 % (0-5); HEMATOCRIT 28.6 % (42-52); MEAN CORPUSCULAR HGB 30.3 PG (27.0-31.0); MEAN CORPUSCULAR HGB CONC 32.9 G/DL (33.0-37.0); MEAN CORPUSCULAR VOLUME 92.1 FL (80.0-94.0); PLATELET COUNT 408 /CUMM (130-400); RBC DISTRIBUTION WIDTH 18.6 % (11.5-14.5); WHITE BLOOD CELL COUNT 8.1 /CUMM (4.8-10.8)
--- NOTE | 2017-04-26 13:00 | PN- Att Addend ---
Attending Addendum Attending Brief Note Hemodialysis in progress patient comfortable. Vital signs are stable no fever and no changes on physical continue present treatment and continue disposition plans to find a place for the patient to go and be safe. 24 TOTALS 04/26 0000 04/25 0000 Intake Total 1480 1200 Output Total 4000 Balance 1480 -2800 Intake, Oral 1480 1200 Number 0 Bowel Movements Output, 4000 Dialysate Patient 175 lb 219 lb Weight Weight Bed scale Measurement Method Current Medications Sig/Grace Start time Last Medication Dose Route Stop Time Status Admin Acetaminophen 325 MG Q6-PRN PRN 04/09 2245 AC 04/22 PO 1448 Albuterol Sulfate 2 PUF Q4P PRN 04/09 2300 AC INH Aripiprazole 400 MG Q30D 04/24 0900 AC 04/24 IM 1330 Aspirin Buffered 81 MG 0800 04/10 0800 AC 04/25 PO 0808 Atorvastatin Calcium 40 MG 1700 04/10 1700 AC 04/25 PO 1806 Benztropine Mesylate 0.5 MG BID 04/10 1000 AC 04/25 PO 2240 Cinacalcet 30 MG DAILY 04/10 1000 AC 04/25 PO 0808 Epoetin [place] 8,000 UNIT TUES THURS SAT PRN 04/10 1500 AC IV Furosemide 80 MG 0800,2200 04/10 0800 AC 04/25 PO 2241 Gabapentin 300 MG AT BEDTIME 04/10 0215 AC 04/25 PO 2240 Hydralazine HCl 20 MG BID 04/10 1000 AC 04/25 PO 2242 Labetalol HCl 100 MG BID 04/10 1000 AC 04/25 PO 2242 Lamotrigine 150 MG DAILY 04/22 1000 AC 04/25 PO 0808 Multivitamins 1 TAB 1000 04/10 1000 AC 04/25 PO 0808 Omeprazole 40 MG DAILY AC 04/20 1325 AC 04/25 PO 0623 Oxcarbazepine 600 MG BID 04/10 1000 AC 04/25 PO 2240 Propranolol HCl 10 MG BID 04/10 1000 AC 04/25 PO 2242 Quetiapine Fumarate 400 MG AT BEDTIME 04/10 0215 AC 04/25 PO 2240 Sevelamer Carbonate 2,400 MG TIDAC 04/10 0800 AC 04/25 PO 1811 Tiotropium [place] 1 PUF DAILY 04/10 1000 AC 04/25 INH 1203 Laboratory Tests 04/26/17 0901: Sodium Cancelled, Potassium Cancelled, Chloride Cancelled, Carbon Dioxide Cancelled, Anion Gap Cancelled, BUN Cancelled, Creatinine Cancelled, BUN/ Creatinine Ratio Cancelled 04/26/17 0755: Anion Gap 12, Estimated GFR 7 L, BUN/Creatinine Ratio 5.5 L, Glucose 102 H, Calcium 8.6, Phosphorus 2.9, Magnesium 2.0, Albumin 3.2 L, CBC w Diff NO MAN DIFF REQ, RBC 2.83 L, MCV 91.2, MCH 30.5, RDW 18.0 H, MPV 7.1 L, Gran % 64.8, Lymphocytes % 20.5, Monocytes % 7.8, Eosinophils % 5.7 H, Basophils % 1.2, Absolute Granulocytes 4.5, Absolute Lymphocytes 1.4, Absolute Monocytes 0.5, Absolute Eosinophils 0.4, Absolute Basophils 0.1, PUBS MCHC 33.4 04/26/17 0737: Anion Gap 14, Estimated GFR 7 L, BUN/Creatinine Ratio 4.9 L, CBC w Diff NO MAN DIFF REQ, RBC 3.10 L, MCV 92.1, MCH 30.3, RDW 18.6 H, MPV 7.0 L, Gran % 63.0, Lymphocytes % 20.7, Monocytes % 9.3, Eosinophils % 6.1 H, Basophils % 0.9, Absolute Granulocytes 5.1, Absolute Lymphocytes 1.7, Absolute Monocytes 0.7 H, Absolute Eosinophils 0.5, Absolute Basophils 0.1, PUBS MCHC 32.9 L 04/25/17 0728: Anion Gap 12, Estimated GFR 10 L, BUN/Creatinine Ratio 4.5 L, CBC w Diff NO MAN DIFF REQ, RBC 2.98 L, MCV 91.8, MCH 30.3, RDW 18.4 H, MPV 6.9 L, Gran % 65.3, Lymphocytes % 18.4 L, Monocytes % 10.1 H, Eosinophils % 4.8, Basophils % 1.4, Absolute Granulocytes 4.9, Absolute Lymphocytes 1.4, Absolute Monocytes 0.8 H, Absolute Eosinophils 0.4, Absolute Basophils 0.1, PUBS MCHC 33.0 Vital Signs Date Time Temp Pulse Resp B/P B/P Pulse O2 O2 Flow FiO2 Mean Ox Delivery Rate 04/26 0627 98.2 87 20 164/82 95 04/25 2242 90 153/96 04/25 2242 90 153/96 04/25 2242 90 153/96 04/25 2229 98.8 90 18 153/96 98 Room Air 04/25 1457 98.4 83 20 160/90 98 Room Air
[2017-04-26 13:05] VITALS: BP 150/78
[2017-04-26 22:46] VITALS: BP 160/76
[2017-04-27 06:27] VITALS: BP 168/100
--- NOTE | 2017-04-27 07:44 | PN- Housestaff ---
Subjective Follow-up For: Symptomatic anemia ESRD on dialysis Atypical chest pain (resolved) Subjective: No overnight events. Patient remained afebrile overnight. Patient seen and examined this morning. He denied any chest pain, short of breath, nausea, vomiting, chills, fever and dysuria.Patient is staying because he needs long- term placement and he has conservator. He is getting his scheduled dialysis. Review of Systems Constitutional: Reports: no symptoms. EENTM: Reports: no symptoms. Cardiovascular: Reports: no symptoms. Respiratory: Reports: no symptoms. Gastrointestinal: Reports: no symptoms. Genitourinary: Reports: no symptoms. Musculoskeletal: Reports: no symptoms. Neurological/Psychological: Reports: no symptoms. Objective Last 24 Hrs of Vital Signs/I&O Vital Signs Date Time Temp Pulse Resp B/P B/P Pulse O2 O2 Flow FiO2 Mean Ox Delivery Rate 04/27 0949 130/82 04/27 0842 80 160/98 04/27 0842 80 160/98 04/27 0658 81 168/100 04/27 0627 98.0 81 20 168/100 97 04/26 2246 98.3 82 19 160/76 98 Room Air 04/26 2245 82 160/76 04/26 2241 82 160/76 04/26 2241 82 160/76 04/26 1305 98.3 80 20 150/78 98 Room Air Intake & Output 04/27 1600 04/27 0800 04/27 0000 Intake Total 240 600 Output Total Balance 240 600 Intake, Oral 240 600 Patient 202 lb Weight Weight Bed scale Measurement Method Physical Exam General Appearance: Alert, Oriented X3, Cooperative, No Acute Distress Skin Temp/Moisture Exam: Warm/Dry HEENT: Atraumatic, PERRLA, EOMI Neck: Supple Cardiovascular: Normal S1, Normal S2 Lungs: Clear to Auscultation Abdomen: Soft, No Tenderness Neurological: Normal Speech, Strength at 5/5 X4 Ext, Normal Tone, Sensation Intact Extremities: No Edema Assessment/Plan Assessment: 61 yo M active smoker with pmhx of ESRD on HD, HFrEF (EF 45-50%) HTN, HLD, bipolar disorder, asthma/COPD, and seizure history presented with dyspnea and acute blood loss anemia with guaiac positive stool. Acute blood loss anemia: (improving) -H&H on presentation 5.5/16.1 -s/p 6 units pRBC transfusion -H/H currently 9.0/ -Continue with omeprazole by mouth 40 mg daily -No NSAIDs -Continue Epogen for chronic anemia from ESRD - On endoscopic there is no bleeding site identified and or colonoscopy incomplete preparation. -Patient is maintaining his hemoglobin above 8. ESRD on HD: -Continue regular hemodialysis Sunday//Sunday, next scheduled for -Trend renal function -Continue nephrovitamin, sevalamer, sensipar and epogen injection -Patient is getting his scheduled dialysis. History of bipolar disorder: -Continue the benztropine, aripiprazole and seroquel. History of hypertension: -Patient is on 3 medications including labetalol, hydralazine and Lasix. -Last night he has hypertension and early dose of labetalol was given. -We will monitor the blood pressure and if still high we will increase the Lipitor dose. HFrEF: -Continue the Lasix, aspirin, propranolol, labetalol, and hydralazine. HLD: -Continue Lipitor for hyperlipidemia. History of seizures: -Continue oxcarbazepine and lamotrigine. LTC placement: - He has been informed of conservatorship and conservators decision that he be placed in LTC on 04/17/17 which he states he intends to fight. -Patient can't leave AMA. Dialysis diet 2g sodium and 2g potassium, water restriction to 1200ml DVT prophylaxis: Mechanical and s/c heparin CODE STATUS: Full code Problem List: 1. Atypical chest pain 2. Symptomatic anemia 3. ESRD (end stage renal disease) on dialysis Pain Ratin Pain Location: none Pain Goal: Remain pain free Pain Plan: tylenol for mild pain Tomorrow's Labs & Rationales: cbc/bep
[2017-04-27 09:49] VITALS: BP 130/82
--- NOTE | 2017-04-27 10:57 | PN- Att Addend ---
Attending Addendum Attending Brief Note No new issues patient in bed with a sitter. Vital signs are stable no fever no changes on physical. Continue present treatment and hemodialysis 3 times a week and disposition plans continue Intake & Output 04/27 1600 04/27 0400 04/26 1600 04/26 0400 04/25 1600 04/25 0400 Intake Total 240 600 665 600 880 240 Output Total Balance 240 600 665 600 880 240 Intake, Oral 240 600 665 600 880 240 Patient 202 lb 209 lb 175 lb Weight Weight Bed scale Bed scale Bed scale Measurement Method Current Medications Sig/Grace Start time Last Medication Dose Route Stop Time Status Admin Acetaminophen 325 MG Q6-PRN PRN 04/09 2245 AC 04/22 PO 1448 Albuterol Sulfate 2 PUF Q4P PRN 04/09 2300 AC INH Aripiprazole 400 MG Q30D 04/24 0900 AC 04/24 IM 1330 Aspirin Buffered 81 MG 0800 04/10 0800 AC 04/27 PO 0748 Atorvastatin Calcium 40 MG 1700 04/10 1700 AC 04/26 PO 1701 Benztropine Mesylate 0.5 MG BID 04/10 1000 AC 04/27 PO 0842 Cinacalcet 30 MG DAILY 04/10 1000 AC 04/27 PO 0842 Epoetin [place] 8,000 UNIT TUES THURS SAT PRN 04/10 1500 AC IV Furosemide 80 MG 0800,2200 04/10 0800 AC 04/27 PO 0748 Gabapentin 300 MG AT BEDTIME 04/10 021 AC 04/26 PO 2242 Hydralazine HCl 20 MG BID 04/10 1000 AC 04/27 PO 0842 Labetalol HCl 100 MG BID 04/10 1000 AC 04/27 PO 0658 Lamotrigine 150 MG DAILY 04/22 1000 AC 04/27 PO 0842 Multivitamins 1 TAB 1000 04/10 1000 AC 04/27 PO 0842 Omeprazole 40 MG DAILY AC 04/20 1325 AC 04/27 PO 0658 Oxcarbazepine 600 MG BID 04/10 1000 AC 04/27 PO 0842 Propranolol HCl 10 MG BID 04/10 1000 AC 04/27 PO 0842 Quetiapine Fumarate 400 MG AT BEDTIME 04/10 0215 AC 04/26 PO 2242 Sevelamer Carbonate 2,400 MG TIDAC 04/10 0800 AC 04/27 PO 0748 Tiotropium [place] 1 PUF DAILY 04/10 1000 AC 04/27 INH 0841 Laboratory Tests 04/27 04/26 04/26 04/26 0746 1026 1018 0901 Chemistry Sodium (137 - 145 mmol/L) 142 Cancelled Potassium (3.5 - 5.1 mmol/L) 5.0 Cancelled Chloride (98 - 107 mmol/L) 103 Cancelled Carbon Dioxide (22 - 30 mmol/L) 27 Cancelled Anion Gap (5 - 16) 13 Cancelled BUN (9 - 20 mg/dL) 26 H 12 Cancelled Cancelled Creatinine (0.7 - 1.2 mg/dL) 6.2 *H Cancelled Estimated GFR (>60 ml/min) 9 L BUN/Creatinine Ratio (7 - 25 %) 4.2 L Cancelled 04/26 04/26 0755 0737 Chemistry Sodium (137 - 145 mmol/L) 141 141 Potassium (3.5 - 5.1 mmol/L) 5.1 5.2 H Chloride (98 - 107 mmol/L) 103 101 Carbon Dioxide (22 - 30 mmol/L) 26 26 Anion Gap (5 - 16) 12 14 BUN (9 - 20 mg/dL) 42 H 39 H Creatinine (0.7 - 1.2 mg/dL) 7.7 *H 7.9 *H Estimated GFR (>60 ml/min) 7 L 7 L BUN/Creatinine Ratio (7 - 25 %) 5.5 L 4.9 L Glucose (65 - 99 mg/dL) 102 H Calcium (8.4 - 10.2 mg/dL) 8.6 Phosphorus (2.5 - 4.5 mg/dL) 2.9 Magnesium (1.6 - 2.3 mg/dL) 2.0 Albumin (3.5 - 5.0 g/dL) 3.2 L Hematology CBC w Diff NO MAN DIFF REQ NO MAN DIFF REQ WBC (4.8 - 10.8 /CUMM) 7.0 8.1 RBC (4.70 - 6.10 /CUMM) 2.83 L 3.10 L Hgb (14.0 - 18.0 G/DL) 8.6 L 9.4 L Hct (42 - 52 %) 25.8 L 28.6 L MCV (80.0 - 94.0 FL) 91.2 92.1 MCH (27.0 - 31.0 PG) 30.5 30.3 RDW (11.5 - 14.5 %) 18.0 H 18.6 H Plt Count (130 - 400 /CUMM) 369 408 H MPV (7.4 - 10.4 FL) 7.1 L 7.0 L Gran % (42.2 - 75.2 %) 64.8 63.0 Lymphocytes % (20.5 - 51.1 %) 20.5 20.7 Monocytes % (1.7 - 9.3 %) 7.8 9.3 Eosinophils % (0 - 5 %) 5.7 H 6.1 H Basophils % (0.0 - 2.0 %) 1.2 0.9 Absolute Granulocytes (1.4 - 6.5 /CUMM) 4.5 5.1 Absolute Lymphocytes (1.2 - 3.4 /CUMM) 1.4 1.7 Absolute Monocytes (0.10 - 0.60 /CUMM) 0.5 0.7 H Absolute Eosinophils (0.0 - 0.7 /CUMM) 0.4 0.5 Absolute Basophils (0.0 - 0.2 /CUMM) 0.1 0.1 PUBS MCHC (33.0 - 37.0 G/DL) 33.4 32.9 L 12/27 0728 Chemistry Sodium (137 - 145 mmol/L) 143 Potassium (3.5 - 5.1 mmol/L) 5.0 Chloride (98 - 107 mmol/L) 104 Carbon Dioxide (22 - 30 mmol/L) 27 Anion Gap (5 - 16) 12 BUN (9 - 20 mg/dL) 27 H Creatinine (0.7 - 1.2 mg/dL) 6.0 *H Estimated GFR (>60 ml/min) 10 L BUN/Creatinine Ratio (7 - 25 %) 4.5 L Hematology CBC w Diff NO MAN DIFF REQ WBC (4.8 - 10.8 /CUMM) 7.6 RBC (4.70 - 6.10 /CUMM) 2.98 L Hgb (14.0 - 18.0 G/DL) 9.0 L Hct (42 - 52 %) 27.4 L MCV (80.0 - 94.0 FL) 91.8 MCH (27.0 - 31.0 PG) 30.3 RDW (11.5 - 14.5 %) 18.4 H Plt Count (130 - 400 /CUMM) 414 H MPV (7.4 - 10.4 FL) 6.9 L Gran % (42.2 - 75.2 %) 65.3 Lymphocytes % (20.5 - 51.1 %) 18.4 L Monocytes % (1.7 - 9.3 %) 10.1 H Eosinophils % (0 - 5 %) 4.8 Basophils % (0.0 - 2.0 %) 1.4 Absolute Granulocytes (1.4 - 6.5 /CUMM) 4.9 Absolute Lymphocytes (1.2 - 3.4 /CUMM) 1.4 Absolute Monocytes (0.10 - 0.60 /CUMM) 0.8 H Absolute Eosinophils (0.0 - 0.7 /CUMM) 0.4 Absolute Basophils (0.0 - 0.2 /CUMM) 0.1 PUBS MCHC (33.0 - 37.0 G/DL) 33.0
[2017-04-27 14:29] VITALS: BP 158/90
[2017-04-27 21:34] VITALS: BP 144/88
[2017-04-28 06:28] VITALS: BP 130/70
--- NOTE | 2017-04-28 07:06 | PN- Housestaff ---
[place] 04/28/17 0706: Subjective Follow-up For: Symptomatic anemia ESRD on dialysis Atypical chest pain (resolved) Subjective: No overnight events. Patient remained afebrile overnight. Patient seen and examined this morning. He denied any chest pain, short of breath, nausea, vomiting, chills, fever, dark stools, hemetemesis and dysuria.Patient is staying because he needs long-term placement and he has conservator. He is getting his scheduled dialysis. Review of Systems Constitutional: Reports: no symptoms. EENTM: Reports: no symptoms. Cardiovascular: Reports: no symptoms. Respiratory: Reports: no symptoms. Gastrointestinal: Reports: no symptoms. Genitourinary: Reports: no symptoms. Musculoskeletal: Reports: no symptoms. Neurological/Psychological: Reports: no symptoms. Objective Last 24 Hrs of Vital Signs/I&O Vital Signs Date Time Temp Pulse Resp B/P B/P Pulse O2 O2 Flow FiO2 Mean Ox Delivery Rate 04/28 0628 97.8 77 20 130/70 98 04/27 213 97.8 90 18 144/88 97 Room Air 04/27 2121 90 144/80 04/27 2121 90 144/80 04/271 90 144/80 04/27 1429 98.7 81 18 158/90 97 Room Air 04/27 0949 130/82 04/27 0842 80 160/98 04/27 0842 80 160/98 Intake & Output 04/28 0800 04/28 0000 04/27 1600 Intake Total 240 720 600 Output Total Balance 240 720 600 Intake, Oral 240 720 600 Patient 209 lb Weight Physical Exam General Appearance: Alert, Oriented X3, Cooperative, No Acute Distress Skin Temp/Moisture Exam: Warm/Dry HEENT: Atraumatic, PERRLA, EOMI Neck: Supple Cardiovascular: Normal S1, Normal S2 Lungs: Clear to Auscultation Abdomen: Soft, No Tenderness Neurological: Normal Speech, Strength at 5/5 X4 Ext, Normal Tone, Sensation Intact Extremities: No Edema Assessment/Plan Assessment: 61 yo M active smoker with pmhx of ESRD on HD, HFrEF (EF 45-50%) HTN, HLD, bipolar disorder, asthma/COPD, and seizure history presented with dyspnea and acute blood loss anemia with guaiac positive stool. Acute blood loss anemia: (improving) -H&H on presentation 5.5/16.1 -s/p 6 units pRBC transfusion -H/H currently 9.0/27 -Continue with omeprazole by mouth 40 mg daily -No NSAIDs -Continue Epogen for chronic anemia from ESRD - On endoscopic there is no bleeding site identified and or colonoscopy incomplete preparation. -Patient is maintaining his hemoglobin above 8. ESRD on HD: -Continue regular hemodialysis Sunday//Sunday, next scheduled for -Trend renal function -Continue nephrovitamin, sevalamer, sensipar and epogen injection -Patient is getting his scheduled dialysis. History of bipolar disorder: -Continue the benztropine, aripiprazole and seroquel. History of hypertension: -Patient is on 3 medications including labetalol, hydralazine and Lasix. -Last night he has hypertension and early dose of labetalol was given. -We will monitor the blood pressure and if still high we will increase the Lipitor dose. HFrEF: -Continue the Lasix, aspirin, propranolol, labetalol, and hydralazine. HLD: -Continue Lipitor for hyperlipidemia. History of seizures: -Continue oxcarbazepine and lamotrigine. LTC placement: - He has been informed of conservatorship and conservators decision that he be placed in LTC on 04/17/17 which he states he intends to fight. -Patient can't leave AMA. Dialysis diet 2g sodium and 2g potassium, water restriction to 1200ml DVT prophylaxis: Mechanical and s/c heparin CODE STATUS: Full code Problem List: 1. Atypical chest pain 2. Symptomatic anemia Pain Ratin Pain Location: none Pain Goal: Remain pain free Pain Plan: tylenol for mild pain Tomorrow's Labs & Rationales: cbc/bep Amilcar FLEMING,[facility] 04/28/17 1555: Attending MD Review Statement Attending Statement Attending MD Statement: examined this patient, discuss w/resident/PA/KNEE BOLTER, agreed w/resident/PA/KNEE BOLTER, discussed with family, reviewed EMR data (avail), discussed with nursing, discussed with case mgmt, reviewed images, amended to note Attending Assessment/Plan: Seen and examined independently General Appearance: Alert, Oriented X3, Cooperative, No Acute Distress Skin Temp/Moisture Exam: Warm/Dry Cardiovascular: Regular Rate, Normal S1, Normal S2, systolic murmur Lungs: Clear to Auscultation, Normal Air Movement Abdomen: Normal Bowel Sounds, Soft, No Tenderness Neurological: Normal Speech, Sensation Intact Extremities: No Clubbing, No Cyanosis, No Edema 61 yo M active smoker with pmhx of ESRD on HD, HFrEF (EF 45-50%) HTN, HLD, bipolar disorder, asthma/COPD, and seizure history presented with dyspnea and acute blood loss anemia with guaiac positive stool. PT with ESRD now oin dialysis Anemia s/p transfusion No sig ongoing bleed MBD on sensipar and sevelmer Bipolar on meds HFrEF on meds HLD stable H/o seizures stable no active seizure ETOH and cannabis use REcent manic episode REC cont dialysis monitor hemoglobin Cont sitter per Psych Cont all meds Needs LTC Cannot leave ama Cont other meds Will follow
[2017-04-28 09:04] LABS: ABSOLUTE BASOPHIL COUNT 0.1 /CUMM (0.0-0.2); ABSOLUTE EOSINOPHIL COUNT 0.6 /CUMM (0.0-0.7); ABSOLUTE GRANULOCYTE CT 5.5 /CUMM (1.4-6.5); ABSOLUTE LYMPH COUNT 1.7 /CUMM (1.2-3.4); ABSOLUTE MONOCYTE COUNT 0.6 /CUMM (0.10-0.60); BASOPHIL % 1.6 % (0.0-2.0); GRANULOCYTE % 64.9 % (42.2-75.2); HEMATOCRIT 28.7 % (42-52); MEAN CORPUSCULAR HGB 29.7 PG (27.0-31.0); MEAN CORPUSCULAR HGB CONC 32.3 G/DL (33.0-37.0); MEAN CORPUSCULAR VOLUME 91.9 FL (80.0-94.0); MEAN PLATELET VOLUME 7.1 FL (7.4-10.4); PLATELET COUNT 384 /CUMM (130-400); RBC DISTRIBUTION WIDTH 18.4 % (11.5-14.5); RED BLOOD CELL CT 3.12 /CUMM (4.70-6.10); WHITE BLOOD CELL COUNT 8.5 /CUMM (4.8-10.8)
--- NOTE | 2017-04-28 11:07 | PN- Nephrology ---
Assessment/Plan Assessment: Stable on dialysis. Suggestion: UF 2 liters with dialysis today. Subjective Subjective: Patient seen on dialysis, no new complaints. Objective Vital Signs and I&Os Vital Signs Date Time Temp Pulse Resp B/P B/P Pulse O2 O2 Flow FiO2 Mean Ox Delivery Rate 04/28 628 97.8 77 20 130/70 98 04/27 2134 97.8 90 18 144/88 97 Room Air 04/27 2121 90 144/80 04/27 2121 90 144/80 04/27 2121 90 144/80 04/27 1429 98.7 81 18 158/90 97 Room Air Intake & Output 04/28 1600 04/28 0400 04/27 1600 04/27 0400 04/26 1600 04/26 0400 Intake Total 240 720 840 600 665 600 Output Total Balance 240 720 840 600 665 600 Intake, Oral 240 720 840 600 665 600 Patient 209 lb 202 lb 209 lb Weight Weight Bed scale Bed scale Measurement Method Physical Exam: NAD VS as above Lungs: clear CV: no rub Abd: non-tender Exts: no edema Neuro: A&O Current Medications: Current Medications Sig/Grace Start time Last Medication Dose Route Stop Time Status Admin Acetaminophen 325 MG Q6-PRN PRN 04/09 2245 AC 04/22 PO 1448 Albuterol Sulfate 2 PUF Q4P PRN 04/09 2300 AC INH Aripiprazole 400 MG Q30D 04/24 0900 AC 04/24 IM 1330 Aspirin Buffered 81 MG 0800 04/10 0800 AC 04/27 PO 0748 Atorvastatin Calcium 40 MG 1700 04/10 1700 AC 04/27 PO 1651 Benztropine Mesylate 0.5 MG BID 04/10 1000 AC 04/27 PO 2120 Cinacalcet 30 MG DAILY 04/10 1000 AC 04/27 PO 0842 Epoetin Florentino 8,000 UNIT TUES THURS SAT PRN 04/10 1500 AC IV Furosemide 80 MG 0800,2200 04/10 0800 AC 04/27 PO 2120 Gabapentin 300 MG AT BEDTIME 04/10 0215 AC 04/27 PO 2122 Hydralazine HCl 20 MG BID 04/10 1000 AC 04/27 PO 2120 Labetalol HCl 100 MG BID 04/10 1000 AC 04/27 PO 212 Lamotrigine 150 MG DAILY 04/22 1000 AC 04/27 PO 0842 Multivitamins 1 TAB 1000 04/10 1000 AC 04/27 PO 0842 Omeprazole 40 MG DAILY AC 04/20 1325 AC 04/28 PO 0503 Oxcarbazepine 600 MG BID 04/10 1000 AC 04/27 PO 2121 Propranolol HCl 10 MG BID 04/10 1000 AC 04/27 PO 2121 Quetiapine Fumarate 400 MG AT BEDTIME 04/10 0215 AC 04/27 PO 212 Sevelamer Carbonate 2,400 MG TIDAC 04/10 0800 AC 04/27 PO 1651 Tiotropium [place] 1 PUF DAILY 04/10 1000 AC 04/27 INH 0841 Results Pertinent Lab Results: Laboratory Tests 04/28 04/27 04/26 0803 0746 1026 Chemistry Sodium (137 - 145 mmol/L) 140 142 Potassium (3.5 - 5.1 mmol/L) 4.8 5.0 Chloride (98 - 107 mmol/L) 103 103 Carbon Dioxide (22 - 30 mmol/L) 25 27 Anion Gap (5 - 16) 13 13 BUN (9 - 20 mg/dL) 43 H 26 H 12 Creatinine (0.7 - 1.2 mg/dL) 7.9 *H 6.2 *H Estimated GFR (>60 ml/min) 7 L 9 L BUN/Creatinine Ratio (7 - 25 %) 5.4 L 4.2 L Glucose (65 - 99 mg/dL) 132 H Calcium (8.4 - 10.2 mg/dL) 8.9 Hematology CBC w Diff NO MAN DIFF REQ WBC (4.8 - 10.8 /CUMM) 8.5 RBC (4.70 - 6.10 /CUMM) 3.12 L Hgb (14.0 - 18.0 G/DL) 9.3 L Hct (42 - 52 %) 28.7 L MCV (80.0 - 94.0 FL) 91.9 MCH (27.0 - 31.0 PG) 29.7 RDW (11.5 - 14.5 %) 18.4 H Plt Count (130 - 400 /CUMM) 384 MPV (7.4 - 10.4 FL) 7.1 L Gran % (42.2 - 75.2 %) 64.9 Lymphocytes % (20.5 - 51.1 %) 19.8 L Monocytes % (1.7 - 9.3 %) 6.7 Eosinophils % (0 - 5 %) 7.0 H Basophils % (0.0 - 2.0 %) 1.6 Absolute Granulocytes (1.4 - 6.5 /CUMM) 5.5 Absolute Lymphocytes (1.2 - 3.4 /CUMM) 1.7 Absolute Monocytes (0.10 - 0.60 /CUMM) 0.6 Absolute Eosinophils (0.0 - 0.7 /CUMM) 0.6 Absolute Basophils (0.0 - 0.2 /CUMM) 0.1 PUBS MCHC (33.0 - 37.0 G/DL) 32.3 L 04/26 04/26 04/26 1018 0901 0755 Chemistry Sodium (137 - 145 mmol/L) Cancelled 141 Potassium (3.5 - 5.1 mmol/L) Cancelled 5.1 Chloride (98 - 107 mmol/L) Cancelled 103 Carbon Dioxide (22 - 30 mmol/L) Cancelled 26 Anion Gap (5 - 16) Cancelled 12 BUN (9 - 20 mg/dL) Cancelled Cancelled 42 H Creatinine (0.7 - 1.2 mg/dL) Cancelled 7.7 *H Estimated GFR (>60 ml/min) 7 L BUN/Creatinine Ratio (7 - 25 %) Cancelled 5.5 L Glucose (65 - 99 mg/dL) 102 H Calcium (8.4 - 10.2 mg/dL) 8.6 Phosphorus (2.5 - 4.5 mg/dL) 2.9 Magnesium (1.6 - 2.3 mg/dL) 2.0 Albumin (3.5 - 5.0 g/dL) 3.2 L Hematology CBC w Diff NO MAN DIFF REQ WBC (4.8 - 10.8 /CUMM) 7.0 RBC (4.70 - 6.10 /CUMM) 2.83 L Hgb (14.0 - 18.0 G/DL) 8.6 L Hct (42 - 52 %) 25.8 L MCV (80.0 - 94.0 FL) 91.2 MCH (27.0 - 31.0 PG) 30.5 RDW (11.5 - 14.5 %) 18.0 H Plt Count (130 - 400 /CUMM) 369 MPV (7.4 - 10.4 FL) 7.1 L Gran % (42.2 - 75.2 %) 64.8 Lymphocytes % (20.5 - 51.1 %) 20.5 Monocytes % (1.7 - 9.3 %) 7.8 Eosinophils % (0 - 5 %) 5.7 H Basophils % (0.0 - 2.0 %) 1.2 Absolute Granulocytes (1.4 - 6.5 /CUMM) 4.5 Absolute Lymphocytes (1.2 - 3.4 /CUMM) 1.4 Absolute Monocytes (0.10 - 0.60 /CUMM) 0.5 Absolute Eosinophils (0.0 - 0.7 /CUMM) 0.4 Absolute Basophils (0.0 - 0.2 /CUMM) 0.1 PUBS MCHC (33.0 - 37.0 G/DL) 33.4 04/26 0737 Chemistry Sodium (137 - 145 mmol/L) 141 Potassium (3.5 - 5.1 mmol/L) 5.2 H Chloride (98 - 107 mmol/L) 101 Carbon Dioxide (22 - 30 mmol/L) 26 Anion Gap (5 - 16) 14 BUN (9 - 20 mg/dL) 39 H Creatinine (0.7 - 1.2 mg/dL) 7.9 *H Estimated GFR (>60 ml/min) 7 L BUN/Creatinine Ratio (7 - 25 %) 4.9 L Hematology CBC w Diff NO MAN DIFF REQ WBC (4.8 - 10.8 /CUMM) 8.1 RBC (4.70 - 6.10 /CUMM) 3.10 L Hgb (14.0 - 18.0 G/DL) 9.4 L Hct (42 - 52 %) 28.6 L MCV (80.0 - 94.0 FL) 92.1 MCH (27.0 - 31.0 PG) 30.3 RDW (11.5 - 14.5 %) 18.6 H Plt Count (130 - 400 /CUMM) 408 H MPV (7.4 - 10.4 FL) 7.0 L Gran % (42.2 - 75.2 %) 63.0 Lymphocytes % (20.5 - 51.1 %) 20.7 Monocytes % (1.7 - 9.3 %) 9.3 Eosinophils % (0 - 5 %) 6.1 H Basophils % (0.0 - 2.0 %) 0.9 Absolute Granulocytes (1.4 - 6.5 /CUMM) 5.1 Absolute Lymphocytes (1.2 - 3.4 /CUMM) 1.7 Absolute Monocytes (0.10 - 0.60 /CUMM) 0.7 H Absolute Eosinophils (0.0 - 0.7 /CUMM) 0.5 Absolute Basophils (0.0 - 0.2 /CUMM) 0.1 PUBS MCHC (33.0 - 37.0 G/DL) 32.9 L
[2017-04-28 14:08] VITALS: BP 168/88
[2017-04-28 15:03] VITALS: BP 168/88
[2017-04-28 22:10] VITALS: BP 164/90
[2017-04-29 06:16] VITALS: BP 148/86
--- NOTE | 2017-04-29 07:23 | PN- Housestaff ---
[place] 04/29/17 0723: Subjective Follow-up For: Symptomatic anemia(improving) ESRD on dialysis Atypical chest pain (resolved) Subjective: No overnight events. Patient remained afebrile overnight. Patient seen and examined this morning. Patient denied any chest pain, short of breath, nausea, vomiting, abdominal pain and dysuria. Patient getting his scheduled dialysis and his H&H are stable. Patient is staying in the hospital due to conservator placement and waiting for LTC placement. Patient has one-on-one sitter because he has 1 manic episode and psychiatry evaluated the patient and they recommended that patient can't leave AMA. Review of Systems Constitutional: Reports: no symptoms. EENTM: Reports: no symptoms. Cardiovascular: Reports: no symptoms. Respiratory: Reports: no symptoms. Gastrointestinal: Reports: no symptoms. Genitourinary: Reports: no symptoms. Musculoskeletal: Reports: no symptoms. Neurological/Psychological: Reports: no symptoms. Objective Last 24 Hrs of Vital Signs/I&O Vital Signs Date Time Temp Pulse Resp B/P B/P Pulse O2 O2 Flow FiO2 Mean Ox Delivery Rate 04/29 0616 97.9 80 20 148/86 97 Room Air 04/28 2210 98.5 85 20 164/90 97 Room Air 04/28 2207 85 164/90 04/28 1503 98.4 81 18 168/88 98 Room Air 04/28 1418 81 168/88 04/28 1408 98.4 81 18 168/88 98 Room Air Intake & Output 04/29 1600 04/29 0800 04/29 0000 Intake Total 310 250 Output Total Balance 310 250 Intake, IV 10 10 Intake, Oral 300 240 Patient 211 lb Weight Weight Bed scale Measurement Method Physical Exam General Appearance: Alert, Oriented X3, Cooperative, No Acute Distress Skin Temp/Moisture Exam: Warm/Dry HEENT: Atraumatic, PERRLA, EOMI Neck: Supple Cardiovascular: Normal S1, Normal S2 Lungs: Clear to Auscultation Abdomen: Soft, No Tenderness Neurological: Normal Speech, Strength at 5/5 X4 Ext, Normal Tone, Sensation Intact Extremities: No Cyanosis, No Edema Assessment/Plan Assessment: 61 yo M active smoker with pmhx of ESRD on HD, HFrEF (EF 45-50%) HTN, HLD, bipolar disorder, asthma/COPD, and seizure history presented with dyspnea and acute blood loss anemia with guaiac positive stool. Acute blood loss anemia: (improving) -H&H on presentation 5.5/16.1 -s/p 6 units pRBC transfusion -H/H currently 9.0 -Continue with omeprazole by mouth 40 mg daily -No NSAIDs -Continue Epogen for chronic anemia from ESRD - On endoscopic there is no bleeding site identified and or colonoscopy incomplete preparation. -Patient is maintaining his hemoglobin above 8. ESRD on HD: -Continue regular hemodialysis Sunday//Sunday, next scheduled for -Trend renal function -Continue nephrovitamin, sevalamer, sensipar and epogen injection -Patient is getting his scheduled dialysis. History of bipolar disorder: -Continue the benztropine, aripiprazole and seroquel. History of hypertension: -Patient is on 3 medications including labetalol, hydralazine and Lasix. -Last night he has hypertension and early dose of labetalol was given. -We will monitor the blood pressure and if still high we will increase the Lipitor dose. HFrEF: -Continue the Lasix, aspirin, propranolol, labetalol, and hydralazine. HLD: -Continue Lipitor for hyperlipidemia. History of seizures: -Continue oxcarbazepine and lamotrigine. LTC placement: - He has been informed of conservatorship and conservators decision that he be placed in LTC on 04/17/17 which he states he intends to fight. -Patient can't leave [facility] because of one episode of jazmin and conservator placement. Dialysis diet 2g sodium and 2g potassium, water restriction to 1200ml DVT prophylaxis: Mechanical and s/c heparin CODE STATUS: Full code Problem List: 1. ESRD (end stage renal disease) 2. Atypical chest pain 3. Symptomatic anemia Pain Ratin Pain Location: NONE Pain Goal: Remain pain free Pain Plan: TYLENOL FOR MILD PAIN Tomorrow's Labs & Rationales: CBC/BEP Amilcar FLEMING,[facility] 04/29/17 1340: Attending MD Review Statement Attending Statement Attending MD Statement: examined this patient, discuss w/resident/PA/DEPUTY COURT CLERK, agreed w/resident/PA/DEPUTY COURT CLERK, discussed with family, reviewed EMR data (avail), discussed with nursing, discussed with case mgmt, reviewed images, amended to note Attending Assessment/Plan: Seen and examined independently General Appearance: Alert, Oriented X3, Cooperative, No Acute Distress Skin Temp/Moisture Exam: Warm/Dry Cardiovascular: Regular Rate, Normal S1, Normal S2, systolic murmur Lungs: Clear to Auscultation, Normal Air Movement Abdomen: Normal Bowel Sounds, Soft, No Tenderness Neurological: Normal Speech, Sensation Intact Extremities: No Clubbing, No Cyanosis, No Edema 61 yo M active smoker with pmhx of ESRD on HD, HFrEF (EF 45-50%) HTN, HLD, bipolar disorder, asthma/COPD, and seizure history presented with dyspnea and acute blood loss anemia with guaiac positive stool. PT with ESRD now on dialysis Anemia s/p transfusion No sig ongoing bleed MBD on sensipar and sevelmer Bipolar on meds HFrEF on meds HLD stable H/o seizures stable no active seizure ETOH and cannabis use REcent manic episode REC cont dialysis monitor hemoglobin Cont sitter per Psych Cont all meds Needs LTC Cannot leave ama Cont other meds Will follow
[2017-04-29 08:38] LABS: ABSOLUTE BASOPHIL COUNT 0.1 /CUMM (0.0-0.2); ABSOLUTE EOSINOPHIL COUNT 0.5 /CUMM (0.0-0.7); ABSOLUTE GRANULOCYTE CT 5.1 /CUMM (1.4-6.5); ABSOLUTE LYMPH COUNT 1.3 /CUMM (1.2-3.4); ABSOLUTE MONOCYTE COUNT 0.6 /CUMM (0.10-0.60); BASOPHIL % 1.2 % (0.0-2.0); EOSINOPHIL % 7.2 % (0-5); HEMATOCRIT 28.8 % (42-52); MEAN CORPUSCULAR HGB 30.2 PG (27.0-31.0); MEAN CORPUSCULAR HGB CONC 32.7 G/DL (33.0-37.0); MEAN CORPUSCULAR VOLUME 92.3 FL (80.0-94.0); PLATELET COUNT 399 /CUMM (130-400); RBC DISTRIBUTION WIDTH 18.1 % (11.5-14.5); RED BLOOD CELL CT 3.12 /CUMM (4.70-6.10); WHITE BLOOD CELL COUNT 7.6 /CUMM (4.8-10.8)
[2017-04-29 14:56] VITALS: BP 130/76
[2017-04-29 21:50] VITALS: BP 164/82
[2017-04-30 07:37] VITALS: BP 154/89
--- NOTE | 2017-04-30 09:03 | PN- Housestaff ---
Triston FLEMING,Shyam 04/30/17 0903: Subjective Follow-up For: ESRD anemia Subjective: Patient was seen and examined at bedside. He is resting comfortably. No acute events overnight. He states that he is frustrated with his inability to go outside and is requesting that we make arrangements for him to go outside just for a couple minutes at a time. He currently has no complaints and denies chest pain, shortness of breath, nausea, vomiting, fever, chills. Review of Systems Constitutional: Reports: no symptoms. Denies: chills. Cardiovascular: Reports: no symptoms. Respiratory: Reports: no symptoms. Gastrointestinal: Reports: no symptoms. Genitourinary: Reports: no symptoms. Musculoskeletal: Reports: no symptoms. Objective Last 24 Hrs of Vital Signs/I&O Vital Signs Date Time Temp Pulse Resp B/P B/P Pulse O2 O2 Flow FiO2 Mean Ox Delivery Rate 04/30 0737 97.6 85 18 154/89 93 Room Air 04/29 2150 98.2 78 18 164/82 98 Room Air 04/29 2143 78 164/82 04/29 2142 78 164/82 04/29 2142 78 164/82 04/29 1456 98.8 74 18 130/76 99 Room Air 04/29 0936 66 158/92 Intake & Output 04/30 1600 04/30 0800 04/30 0000 Intake Total 120 480 Output Total Balance 120 480 Intake, Oral 120 480 Patient 212 lb Weight Weight Bed scale Measurement Method Physical Exam General Appearance: Alert, Oriented X3, Cooperative, No Acute Distress Skin Temp/Moisture Exam: Warm/Dry Cardiovascular: Regular Rate, Normal S1, Normal S2, No Murmurs Lungs: Clear to Auscultation, Normal Air Movement Abdomen: Normal Bowel Sounds, Soft, No Tenderness Neurological: Normal Speech, Normal Tone, Sensation Intact Extremities: fistula on the L arm with palpable thrill Current Medications: Current Medications Sig/Grace Start time Last Medication Dose Route Stop Time Status Admin Acetaminophen 325 MG Q6-PRN PRN 04/09 2245 AC 04/22 PO 1448 Albuterol Sulfate 2 PUF Q4P PRN 04/09 2300 AC INH Aripiprazole 400 MG Q30D 04/24 0900 AC 04/24 IM 1330 Aspirin Buffered 81 MG 0804/10 08 AC 04/29 PO 0836 Atorvastatin Calcium 40 MG 1700 04/10 1700 AC 04/29 PO 1727 Benztropine Mesylate 0.5 MG BID 04/10 1000 AC 04/29 PO 2143 Cinacalcet 30 MG DAILY 04/10 1000 AC 04/29 PO 0937 Epoetin Florentino 8,000 UNIT SAT PRN 04/10 1500 AC IV Furosemide 80 MG 0800,2200 04/10 0800 AC 04/29 PO 2142 Gabapentin 300 MG AT BEDTIME 04/10 0215 AC 04/29 PO 2142 Hydralazine HCl 20 MG BID 04/10 1000 AC 04/29 PO 2142 Labetalol HCl 100 MG BID 04/10 1000 AC 04/29 PO 2142 Lamotrigine 150 MG DAILY 04/22 1000 AC 04/29 PO 0935 Multivitamins 1 TAB 1000 04/10 1000 AC 04/29 PO 0936 Omeprazole 40 MG DAILY AC 04/20 1325 AC 04/30 PO 0549 Oxcarbazepine 600 MG BID 04/10 1000 AC 04/29 PO 2143 Propranolol HCl 10 MG BID 04/10 1000 AC 04/29 PO 2143 Quetiapine Fumarate 400 MG AT BEDTIME 04/10 0215 AC 04/29 PO 2142 Sevelamer Carbonate 2,400 MG TIDAC 04/10 0800 AC 04/29 PO 1727 Tiotropium [place] 1 PUF DAILY 04/10 1000 AC 04/29 INH 0937 Last 24 Hrs of Lab/Freddy Results Last 24 Hrs of Labs/Mics: Laboratory Tests 04/30/17 0720: Anion Gap 11, Estimated GFR 7 L, BUN/Creatinine Ratio 5.9 L Assessment/Plan Assessment: 61 yo M active smoker with pmhx of ESRD on HD, HFrEF (EF 45-50%) HTN, HLD, bipolar disorder, asthma/COPD, and seizure history presented with dyspnea and acute blood loss anemia with guaiac positive stool. Acute blood loss anemia: (improving) -H&H on presentation 5.5/16.1 -s/p 6 units pRBC transfusion -H/H currently 9.4/28.8 -Continue with omeprazole by mouth 40 mg daily -No NSAIDs -Continue Epogen for chronic anemia from ESRD - On endoscopy there is no bleeding site identified and or colonoscopy incomplete preparation. -Patient is maintaining his hemoglobin above 8. ESRD on HD: -Continue regular hemodialysis Sunday//Sunday, next scheduled for 05/01 -Continue nephrovitamin, sevalamer, sensipar and epogen injection -Patient is getting his scheduled dialysis. History of bipolar disorder: -Continue the benztropine, aripiprazole and seroquel. History of hypertension: -Patient is on 3 medications including labetalol, hydralazine and Lasix. -Last night he has hypertension and early dose of labetalol was given. -We will monitor the blood pressure and if still high we will increase the Lipitor dose. HFrEF: -Continue the Lasix, aspirin, propranolol, labetalol, and hydralazine. HLD: -Continue Lipitor for hyperlipidemia. History of seizures: -Continue oxcarbazepine and lamotrigine. LTC placement: - He has been informed of conservatorship and conservators decision that he be placed in LTC on 04/17/17 which he states he intends to fight. -Patient can't leave AMA because of one episode of jazmin and conservator placement. Dialysis diet 2g sodium and 2g potassium, water restriction to 1200ml DVT prophylaxis: Mechanical and s/c heparin CODE STATUS: Full code Problem List: 1. Anemia 2. ESRD (end stage renal disease) on dialysis Pain Ratin Pain Location: none Pain Goal: Remain pain free Pain Plan: pain pathway Tomorrow's Labs & Rationales: none Brennan Fitzgerald MD 04/30/17 1219: Attending Review Statement Attending Statement Attending MD Statement: examined this patient, discuss w/resident/PA/STABLEHAND, agreed w/resident/PA/STABLEHAND, discussed with family, reviewed EMR data (avail), discussed with nursing, discussed with case mgmt, reviewed images, amended to note Attending Assessment/Plan: Seen and examined independently General Appearance: Alert, Oriented X3, Cooperative, No Acute Distress Skin Temp/Moisture Exam: Warm/Dry Cardiovascular: Regular Rate, Normal S1, Normal S2, systolic murmur Lungs: Clear to Auscultation, Normal Air Movement Abdomen: Normal Bowel Sounds, Soft, No Tenderness Neurological: Normal Speech, Sensation Intact Extremities: No Clubbing, No Cyanosis, No Edema 61 yo M active smoker with pmhx of ESRD on HD, HFrEF (EF 45-50%) HTN, HLD, bipolar disorder, asthma/COPD, and seizure history presented with dyspnea and acute blood loss anemia with guaiac positive stool. PT with ESRD now on dialysis Anemia s/p transfusion No sig ongoing bleed MBD on sensipar and sevelmer Bipolar on meds HFrEF on meds HLD stable H/o seizures stable no active seizure ETOH and cannabis use REcent manic episode REC cont dialysis monitor hemoglobin Q 48 HRS Cont sitter per Psych Cont all meds Needs LTC Cannot leave ama Cont other meds Will follow
[2017-04-30 14:38] VITALS: BP 150/96
[2017-04-30 22:51] VITALS: BP 144/88
--- NOTE | 2017-05-01 07:24 | PN- Housestaff ---
Subjective Follow-up For: ESRD Chronic anemia Subjective: No overnight events. Patient remained afebrile overnight. Seen and examined this man bedside. He was lying in bed comfortably. He denied any chest pain, short of breath, nausea, vomiting, chills, fever, abdominal pain dysuria. Patient is getting scheduled dialysis. He is staying because of LTAC placement and patient also having conservator. Patient can't leave AMA as recommended by psychiatry because of one episode of jazmin and conservator placement. Review of Systems Constitutional: Reports: no symptoms. EENTM: Reports: no symptoms. Cardiovascular: Reports: no symptoms. Respiratory: Reports: no symptoms. Gastrointestinal: Reports: no symptoms. Genitourinary: Reports: no symptoms. Musculoskeletal: Reports: no symptoms. Neurological/Psychological: Reports: no symptoms. Objective Last 24 Hrs of Vital Signs/I&O Vital Signs Date Time Temp Pulse Resp B/P B/P Pulse O2 O2 Flow FiO2 Mean Ox Delivery Rate 05/01 0749 77 20 160/94 97 04/30 2251 98.1 89 18 144/88 98 Room Air 04/30 215 89 144/88 04/30 2155 89 144/88 04/30 2155 89 144/88 04/30 1438 97.5 86 18 150/96 94 Room Air 04/30 0927 90 142/88 04/30 0925 90 142/88 04/30 0925 90 142/88 Intake & Output 05/01 1600 05/01 0800 05/01 0000 Intake Total 240 Output Total Balance 240 Intake, Oral 240 Patient 224 lb Weight Weight Standing Scale Measurement Method Physical Exam General Appearance: Alert, Oriented X3, Cooperative, No Acute Distress Skin Temp/Moisture Exam: Warm/Dry HEENT: Atraumatic, PERRLA, EOMI Neck: Supple Cardiovascular: Normal S1, Normal S2 Lungs: Clear to Auscultation Abdomen: Soft, No Tenderness Neurological: Normal Speech, Strength at 5/5 X4 Ext, Normal Tone, Sensation Intact Assessment/Plan Assessment: 61 yo M active smoker with pmhx of ESRD on HD, HFrEF (EF 45-50%) HTN, HLD, bipolar disorder, asthma/COPD, and seizure history presented with dyspnea and acute blood loss anemia with guaiac positive stool. Acute blood loss anemia: (improving) -H&H on presentation 5.5/16.1 -s/p 6 units pRBC transfusion -H/H currently 9.4/28.8 -Continue with omeprazole by mouth 40 mg daily -No NSAIDs -Continue Epogen for chronic anemia from ESRD - On endoscopy there is no bleeding site identified and or colonoscopy incomplete preparation. -Patient is maintaining his hemoglobin above 8. ESRD on HD: -Continue regular hemodialysis Sunday//Sunday, next scheduled for 05/01 -Continue nephrovitamin, sevalamer, sensipar and epogen injection -Patient is getting his scheduled dialysis. History of bipolar disorder: -Continue the benztropine, aripiprazole and seroquel. History of hypertension: -Patient is on 3 medications including labetalol, hydralazine and Lasix. -Last night he has hypertension and early dose of labetalol was given. -We will monitor the blood pressure and if still high we will increase the Lipitor dose. HFrEF: -Continue the Lasix, aspirin, propranolol, labetalol, and hydralazine. HLD: -Continue Lipitor for hyperlipidemia. History of seizures: -Continue oxcarbazepine and lamotrigine. LTC placement: - He has been informed of conservatorship and conservators decision that he be placed in LTC on 04/17/17 which he states he intends to fight. -Patient can't leave [facility] because of one episode of jazmin and conservator placement. Dialysis diet 2g sodium and 2g potassium, water restriction to 1200ml DVT prophylaxis: Mechanical and s/c heparin CODE STATUS: Full code Problem List: 1. Anemia 2. ESRD (end stage renal disease) on dialysis Pain Ratin Pain Location: none Pain Goal: Remain pain free Pain Plan: tylenol for mild apin Tomorrow's Labs & Rationales: cbc/bep
[2017-05-01 07:49] VITALS: BP 160/94
[2017-05-01 09:39] LABS: ABSOLUTE BASOPHIL COUNT 0.1 /CUMM (0.0-0.2); ABSOLUTE EOSINOPHIL COUNT 0.5 /CUMM (0.0-0.7); ABSOLUTE GRANULOCYTE CT 5.3 /CUMM (1.4-6.5); ABSOLUTE LYMPH COUNT 1.3 /CUMM (1.2-3.4); ABSOLUTE MONOCYTE COUNT 0.5 /CUMM (0.10-0.60); BASOPHIL % 1.3 % (0.0-2.0); EOSINOPHIL % 6.7 % (0-5); GRANULOCYTE % 68.9 % (42.2-75.2); HEMATOCRIT 27.2 % (42-52); MEAN CORPUSCULAR HGB 30.1 PG (27.0-31.0); MEAN CORPUSCULAR HGB CONC 32.9 G/DL (33.0-37.0); MEAN CORPUSCULAR VOLUME 91.6 FL (80.0-94.0); PLATELET COUNT 365 /CUMM (130-400); RBC DISTRIBUTION WIDTH 17.9 % (11.5-14.5); RED BLOOD CELL CT 2.97 /CUMM (4.70-6.10); WHITE BLOOD CELL COUNT 7.7 /CUMM (4.8-10.8)
--- NOTE | 2017-05-01 10:29 | PN- Att Addend ---
Attending Addendum Attending Brief Note Hemodialysis in progress vital signs are stable no fever and no new changes on physical continue present treatment and disposition plans. Intake & Output 05/01 1600 05/01 0400 04/30 1600 04/30 0400 04/29 1600 04/29 0400 Intake Total 240 720 480 860 250 Output Total Balance 240 720 480 860 250 Intake, IV 10 10 Intake, Oral 240 720 480 850 240 Number 1 Bowel Movements Patient 224 lb 212 lb 211 lb Weight Weight Standing Scale Bed scale Bed scale Measurement Method Current Medications Sig/Grace Start time Last Medication Dose Route Stop Time Status Admin Acetaminophen 325 MG Q6-PRN PRN 04/09 2245 AC 04/22 PO 1448 Albuterol Sulfate 2 PUF Q4P PRN 04/09 2300 AC INH Aripiprazole 400 MG Q30D 04/24 0900 AC 04/24 IM 1330 Aspirin Buffered 81 MG 0800 04/10 0800 AC 04/30 PO 0925 Atorvastatin Calcium 40 MG 1700 04/10 1700 AC 04/30 PO 1715 Benztropine Mesylate 0.5 MG BID 04/10 1000 AC 04/30 PO 2155 Cinacalcet 30 MG DAILY 04/10 1000 AC 04/30 PO 0925 Epoetin Florentino 8,000 UNIT TUES THURS SAT PRN 04/10 1500 AC IV Furosemide 80 MG 0800,2200 04/10 0800 AC 04/30 PO 2155 Gabapentin 300 MG AT BEDTIME 04/10 0215 AC 04/30 PO 2155 Hydralazine HCl 20 MG BID 04/10 1000 AC 04/30 PO 2155 Labetalol HCl 100 MG BID 04/10 1000 AC 04/30 PO 2155 Lamotrigine 150 MG DAILY 04/22 1000 AC 04/30 PO 0926 Multivitamins 1 TAB 1000 04/10 1000 AC 04/30 PO 0926 Omeprazole 40 MG DAILY AC 04/20 1325 AC 05/01 PO 0607 Oxcarbazepine 600 MG BID 04/10 1000 AC 04/30 PO 2155 Propranolol HCl 10 MG BID 04/10 1000 AC 04/30 PO 2155 Quetiapine Fumarate 400 MG AT BEDTIME 04/10 0215 AC 04/30 PO 2155 Sevelamer Carbonate 2,400 MG TIDAC 04/10 0800 AC 05/01 PO 0756 Tiotropium [place] 1 PUF DAILY 04/10 1000 AC 04/30 INH 1243 Laboratory Tests 05/01/17 0900: Anion Gap 14, Estimated GFR 6 L, BUN/Creatinine Ratio 6.8 L, Calcium 8.6, CBC w Diff NO MAN DIFF REQ, RBC 2.97 L, MCV 91.6, MCH 30.1, RDW 17.9 H, MPV 7.0 L , Gran % 68.9, Lymphocytes % 16.9 L, Monocytes % 6.2, Eosinophils % 6.7 H, Basophils % 1.3, Absolute Granulocytes 5.3, Absolute Lymphocytes 1.3, Absolute Monocytes 0.5, Absolute Eosinophils 0.5, Absolute Basophils 0.1, PUBS MCHC 32.9 L 04/30/17 0720: Anion Gap 11, Estimated GFR 7 L, BUN/Creatinine Ratio 5.9 L 04/29/17 0725: CBC w Diff NO MAN DIFF REQ, RBC 3.12 L, MCV 92.3, MCH 30.2, RDW 18.1 H, MPV 7.0 L, Gran % 67.0, Lymphocytes % 17.0 L, Monocytes % 7.6, Eosinophils % 7.2 H, Basophils % 1.2, Absolute Granulocytes 5.1, Absolute Lymphocytes 1.3, Absolute Monocytes 0.6, Absolute Eosinophils 0.5, Absolute Basophils 0.1, PUBS MCHC 32.7 L Vital Signs Date Time Temp Pulse Resp B/P B/P Pulse O2 O2 Flow FiO2 Mean Ox Delivery Rate 05/01 0749 77 20 160/94 97 04/30 2251 98.1 89 18 144/88 98 Room Air 04/30 2154 89 144/88 04/30 2154 89 144/88 04/30 2154 89 144/88 04/30 1438 97.5 86 18 150/96 94 Room Air
--- NOTE | 2017-05-01 10:47 | PN- Nephrology ---
Assessment/Plan Assessment: 1. ESRD 2. Anemia, status post GI bleed 3. Bipolar disorder 4. History of chronic noncompliance Suggestion: 1. Hemodialysis today with 2-3 L ultrafiltration as tolerated over 4 hours 2. Continue to monitor 3. Next hemodialysis for 05/03 4. Awaiting appropriate disposition Subjective Subjective: Patient offers no complaints. Clinically stable. Seen with hemodialysis. Objective Vital Signs and I&Os Vital Signs Date Time Temp Pulse Resp B/P B/P Pulse O2 O2 Flow FiO2 Mean Ox Delivery Rate 05/01 0749 77 20 160/94 97 04/30 2251 98.1 89 18 144/88 98 Room Air 04/30 215 89 144/88 04/30 2155 89 144/88 04/30 215 89 144/88 04/30 1438 97.5 86 18 150/96 94 Room Air Intake & Output 05/01 1600 05/01 0400 04/30 1600 04/30 0400 04/29 1600 04/29 0400 Intake Total 240 720 480 860 250 Output Total Balance 240 720 480 860 250 Intake, IV 10 10 Intake, Oral 240 720 480 850 240 Number 1 Bowel Movements Patient 224 lb 212 lb 211 lb Weight Weight Standing Scale Bed scale Bed scale Measurement Method Physical Exam: General: Well-developed white male in no acute distress Skin: No rash or jaundice HEENT: Conjunctivae pale, sclerae anicteric, mucous membranes moist Neck: Without masses or thyromegaly, no supraclavicular or cervical adenopathy Chest: Clear to P & A Heart: Regular rate and rhythm without S3 or rub Abdomen: Obese, soft and nontender without palpable masses or organomegaly Extremities: Without cyanosis or edema, left lower arm AVF patent Neuro: No focal findings, no asterixis or myoclonus Current Medications: Current Medications Sig/Grace Start time Last Medication Dose Route Stop Time Status Admin Acetaminophen 325 MG Q6-PRN PRN 04/09 2245 AC 04/22 PO 1448 Albuterol Sulfate 2 PUF Q4P PRN 04/09 2300 AC INH Aripiprazole 400 MG Q30D 04/24 0900 AC 04/24 IM 1330 Aspirin Buffered 81 MG 0800 04/10 0800 AC 04/30 PO 0925 Atorvastatin Calcium 40 MG 1700 04/10 1700 AC 04/30 PO 1715 Benztropine Mesylate 0.5 MG BID 04/10 1000 AC 04/30 PO 2155 Cinacalcet 30 MG DAILY 04/10 1000 AC 04/30 PO 0925 Epoetin [place] 8,000 UNIT TUES THURS SAT PRN 04/10 1500 AC IV Furosemide 80 MG 0800,2200 04/10 0800 AC 04/30 PO 2155 Gabapentin 300 MG AT BEDTIME 04/10 0215 AC 04/30 PO 2155 Hydralazine HCl 20 MG BID 04/10 1000 AC 05/01 PO 1042 Labetalol HCl 100 MG BID 04/10 1000 AC 05/01 PO 1043 Lamotrigine 150 MG DAILY 04/22 1000 AC 04/30 PO 0926 Multivitamins 1 TAB 1000 04/10 1000 AC 04/30 PO 0926 Omeprazole 40 MG DAILY AC 04/20 1325 AC 05/01 PO 0607 Oxcarbazepine 600 MG BID 04/10 1000 AC 04/30 PO 2155 Propranolol HCl 10 MG BID 04/10 1000 AC 04/30 PO 2155 Quetiapine Fumarate 400 MG AT BEDTIME 04/10 0215 AC 04/30 PO 2155 Sevelamer Carbonate 2,400 MG TIDAC 04/10 0800 AC 05/01 PO 0756 Tiotropium [place] 1 PUF DAILY 04/10 1000 AC 04/30 INH 1243 Results Pertinent Lab Results: Laboratory Tests 05/01 04/30 0900 0720 Chemistry Sodium (137 - 145 mmol/L) 138 138 Potassium (3.5 - 5.1 mmol/L) 5.6 H 5.2 H Chloride (98 - 107 mmol/L) 102 101 Carbon Dioxide (22 - 30 mmol/L) 22 26 Anion Gap (5 - 16) 14 11 BUN (9 - 20 mg/dL) 62 H 45 H Creatinine (0.7 - 1.2 mg/dL) 9.1 *H 7.6 *H Estimated GFR (>60 ml/min) 6 L 7 L BUN/Creatinine Ratio (7 - 25 %) 6.8 L 5.9 L Calcium (8.4 - 10.2 mg/dL) 8.6 Hematology CBC w Diff NO MAN DIFF REQ WBC (4.8 - 10.8 /CUMM) 7.7 RBC (4.70 - 6.10 /CUMM) 2.97 L Hgb (14.0 - 18.0 G/DL) 8.9 L Hct (42 - 52 %) 27.2 L MCV (80.0 - 94.0 FL) 91.6 MCH (27.0 - 31.0 PG) 30.1 RDW (11.5 - 14.5 %) 17.9 H Plt Count (130 - 400 /CUMM) 365 MPV (7.4 - 10.4 FL) 7.0 L Gran % (42.2 - 75.2 %) 68.9 Lymphocytes % (20.5 - 51.1 %) 16.9 L Monocytes % (1.7 - 9.3 %) 6.2 Eosinophils % (0 - 5 %) 6.7 H Basophils % (0.0 - 2.0 %) 1.3 Absolute Granulocytes (1.4 - 6.5 /CUMM) 5.3 Absolute Lymphocytes (1.2 - 3.4 /CUMM) 1.3 Absolute Monocytes (0.10 - 0.60 /CUMM) 0.5 Absolute Eosinophils (0.0 - 0.7 /CUMM) 0.5 Absolute Basophils (0.0 - 0.2 /CUMM) 0.1 PUBS MCHC (33.0 - 37.0 G/DL) 32.9 L 04/29 0725 Hematology CBC w Diff NO MAN DIFF REQ WBC (4.8 - 10.8 /CUMM) 7.6 RBC (4.70 - 6.10 /CUMM) 3.12 L Hgb (14.0 - 18.0 G/DL) 9.4 L Hct (42 - 52 %) 28.8 L MCV (80.0 - 94.0 FL) 92.3 MCH (27.0 - 31.0 PG) 30.2 RDW (11.5 - 14.5 %) 18.1 H Plt Count (130 - 400 /CUMM) 399 MPV (7.4 - 10.4 FL) 7.0 L Gran % (42.2 - 75.2 %) 67.0 Lymphocytes % (20.5 - 51.1 %) 17.0 L Monocytes % (1.7 - 9.3 %) 7.6 Eosinophils % (0 - 5 %) 7.2 H Basophils % (0.0 - 2.0 %) 1.2 Absolute Granulocytes (1.4 - 6.5 /CUMM) 5.1 Absolute Lymphocytes (1.2 - 3.4 /CUMM) 1.3 Absolute Monocytes (0.10 - 0.60 /CUMM) 0.6 Absolute Eosinophils (0.0 - 0.7 /CUMM) 0.5 Absolute Basophils (0.0 - 0.2 /CUMM) 0.1 PUBS MCHC (33.0 - 37.0 G/DL) 32.7 L
[2017-05-01 14:03] VITALS: BP 178/92
[2017-05-01 22:58] VITALS: BP 168/78
[2017-05-02 06:53] VITALS: BP 150/80
--- NOTE | 2017-05-02 06:58 | PN- Housestaff ---
Subjective Follow-up For: ESRD on dialysis Chronic anemia Subjective: No overnight events. Patient been afebrile. Seen and examined this morning. He denied any chest pain, short of breath, nausea, vomiting, chills, fever, abdominal pain and dysuria. Patient is getting scheduled dialysis.He is staying because of LTC placement and patient also having conservator. Patient can't leave AMA as recommended by psychiatry because of one episode of jazmin and conservator placement. Review of Systems Constitutional: Reports: no symptoms. EENTM: Reports: no symptoms. Cardiovascular: Reports: no symptoms. Respiratory: Reports: no symptoms. Gastrointestinal: Reports: no symptoms. Genitourinary: Reports: no symptoms. Musculoskeletal: Reports: no symptoms. Neurological/Psychological: Reports: no symptoms. Objective Last 24 Hrs of Vital Signs/I&O Vital Signs Date Time Temp Pulse Resp B/P B/P Pulse O2 O2 Flow FiO2 Mean Ox Delivery Rate 05/02 0933 178/100 05/02 0931 80 178/100 05/02 0653 97.8 82 20 150/80 98 Room Air 05/01 2258 99.3 89 20 168/78 97 Room Air 05/01 2202 89 168/78 05/01 2159 89 168/78 05/01 2159 89 168/78 Intake & Output 05/02 1600 05/02 0800 05/02 0000 Intake Total 240 240 Output Total Balance 240 240 Intake, Oral 240 240 Patient 204 lb Weight Weight Bed scale Measurement Method Physical Exam General Appearance: Alert, Oriented X3, Cooperative, No Acute Distress Skin Temp/Moisture Exam: Warm/Dry HEENT: Atraumatic, PERRLA, EOMI Neck: Supple Cardiovascular: Normal S1, Normal S2 Lungs: Clear to Auscultation Abdomen: Soft, No Tenderness Neurological: Normal Speech, Strength at 5/5 X4 Ext, Normal Tone, Sensation Intact Extremities: No Edema Assessment/Plan Assessment: 61 yo M active smoker with pmhx of ESRD on HD, HFrEF (EF 45-50%) HTN, HLD, bipolar disorder, asthma/COPD, and seizure history presented with dyspnea and acute blood loss anemia with guaiac positive stool. Acute blood loss anemia: (improving) -H&H on presentation 5.5/16.1 -s/p 6 units pRBC transfusion -H/H currently 9.4/28.8 -Continue with omeprazole by mouth 40 mg daily -No NSAIDs -Continue Epogen for chronic anemia from ESRD - On endoscopy there is no bleeding site identified and or colonoscopy incomplete preparation. -Today his hemoglobin is 9.4. ESRD on HD: -Continue regular hemodialysis Sunday//Sunday, next scheduled for 05/01 -Continue nephrovitamin, sevalamer, sensipar and epogen injection -Patient is getting his scheduled dialysis. History of bipolar disorder: -Continue the benztropine, aripiprazole and seroquel. History of hypertension: -Patient is on 3 medications including labetalol, hydralazine and Lasix. -Last night he has hypertension and early dose of labetalol was given. -We will monitor the blood pressure and if still high we will increase the Lipitor dose. HFrEF: -Continue the Lasix, aspirin, propranolol, labetalol, and hydralazine. HLD: -Continue Lipitor for hyperlipidemia. History of seizures: -Continue oxcarbazepine and lamotrigine. LTC placement: - He has been informed of conservatorship and conservators decision that he be placed in LTC on 04/17/17 which he states he intends to fight. -Patient can't leave [facility] because of one episode of jazmin and conservator placement. Dialysis diet 2g sodium and 2g potassium, water restriction to 1200ml DVT prophylaxis: Mechanical and s/c heparin CODE STATUS: Full code Problem List: 1. ESRD (end stage renal disease) on dialysis 2. Anemia Pain Ratin Pain Location: none Pain Goal: Remain pain free Pain Plan: tylenol for mild pain Tomorrow's Labs & Rationales: none
[2017-05-02 08:34] LABS: ABSOLUTE BASOPHIL COUNT 0.1 /CUMM (0.0-0.2); ABSOLUTE EOSINOPHIL COUNT 0.5 /CUMM (0.0-0.7); ABSOLUTE GRANULOCYTE CT 5.2 /CUMM (1.4-6.5); ABSOLUTE LYMPH COUNT 1.8 /CUMM (1.2-3.4); ABSOLUTE MONOCYTE COUNT 0.7 /CUMM (0.10-0.60); BASOPHIL % 1.1 % (0.0-2.0); EOSINOPHIL % 6.3 % (0-5); GRANULOCYTE % 62.4 % (42.2-75.2); HEMATOCRIT 28.5 % (42-52); MEAN CORPUSCULAR HGB 30.3 PG (27.0-31.0); MEAN CORPUSCULAR HGB CONC 33.1 G/DL (33.0-37.0); MEAN CORPUSCULAR VOLUME 91.7 FL (80.0-94.0); MEAN PLATELET VOLUME 6.9 FL (7.4-10.4); PLATELET COUNT 377 /CUMM (130-400); RBC DISTRIBUTION WIDTH 17.9 % (11.5-14.5); RED BLOOD CELL CT 3.11 /CUMM (4.70-6.10); WHITE BLOOD CELL COUNT 8.3 /CUMM (4.8-10.8)
--- NOTE | 2017-05-02 10:14 | PN- Att Addend ---
Attending Addendum Attending Brief Note No new issues with his vital signs are stable no fever and no changes on physical examination. To continue present treatments and hemodialysis treatment times a week discharge plans still in progress Intake & Output 05/02 1600 05/02 0400 05/01 1600 05/01 0400 04/30 1600 04/30 0400 Intake Total 240 240 840 720 480 Output Total Balance 240 240 840 720 480 Intake, Oral 240 240 840 720 480 Patient 204 lb 215 lb 212 lb Weight Weight Bed scale Standing Scale Bed scale Measurement Method Current Medications Sig/Grace Start time Last Medication Dose Route Stop Time Status Admin Acetaminophen 325 MG Q6-PRN PRN 04/09 2245 AC 04/22 PO 1448 Albuterol Sulfate 2 PUF Q4P PRN 04/09 2300 AC INH Aripiprazole 400 MG Q30D 04/24 0900 AC 04/24 IM 1330 Aspirin Buffered 81 MG 0800 04/10 0800 AC 05/02 PO 0931 Atorvastatin Calcium 40 MG 1700 04/10 1700 AC 05/01 PO 1759 Benztropine Mesylate 0.5 MG BID 04/10 1000 AC 05/02 PO 0932 Cinacalcet 30 MG DAILY 04/10 1000 AC 05/02 PO 0933 Epoetin [place] 8,000 UNIT TUES THURS SAT PRN 04/10 1500 AC IV Furosemide 80 MG 0800,2200 04/10 0800 AC 05/02 PO 0931 Gabapentin 300 MG AT BEDTIME 04/10 0215 AC 05/01 PO 2159 Hydralazine HCl 20 MG BID 04/10 1000 AC 05/02 PO 0933 Labetalol HCl 100 MG BID 04/10 1000 AC 05/02 PO 0931 Lamotrigine 150 MG DAILY 04/22 1000 AC 05/02 PO 0932 Multivitamins 1 TAB 1000 04/10 1000 AC 05/02 PO 0932 Omeprazole 40 MG DAILY AC 04/20 1325 AC 05/02 PO 0517 Oxcarbazepine 600 MG BID 04/10 1000 AC 05/02 PO 0932 Propranolol HCl 10 MG BID 04/10 1000 AC 05/02 PO 0933 Quetiapine Fumarate 400 MG AT BEDTIME 04/10 0215 AC 05/01 PO 2158 Sevelamer Carbonate 2,400 MG TIDAC 04/10 0800 AC 05/02 PO 0931 Tiotropium [place] 1 PUF DAILY 04/10 1000 AC 05/02 INH 0933 Laboratory Tests 05/02/17 0715: CBC w Diff NO MAN DIFF REQ, RBC 3.11 L, MCV 91.7, MCH 30.3, RDW 17.9 H, MPV 6.9 L, Gran % 62.4, Lymphocytes % 21.2, Monocytes % 9.0, Eosinophils % 6.3 H, Basophils % 1.1, Absolute Granulocytes 5.2, Absolute Lymphocytes 1.8, Absolute Monocytes 0.7 H, Absolute Eosinophils 0.5, Absolute Basophils 0.1, PUBS MCHC 33.1 05/01/17 0900: Anion Gap 14, Estimated GFR 6 L, BUN/Creatinine Ratio 6.8 L, Calcium 8.6, CBC w Diff NO MAN DIFF REQ, RBC 2.97 L, MCV 91.6, MCH 30.1, RDW 17.9 H, MPV 7.0 L , Gran % 68.9, Lymphocytes % 16.9 L, Monocytes % 6.2, Eosinophils % 6.7 H, Basophils % 1.3, Absolute Granulocytes 5.3, Absolute Lymphocytes 1.3, Absolute Monocytes 0.5, Absolute Eosinophils 0.5, Absolute Basophils 0.1, PUBS MCHC 32.9 L 04/30/17 0720: Anion Gap 11, Estimated GFR 7 L, BUN/Creatinine Ratio 5.9 L Vital Signs Date Time Temp Pulse Resp B/P B/P Pulse O2 O2 Flow FiO2 Mean Ox Delivery Rate 05/02 0933 178/100 05/02 0931 80 178/100 05/02 0653 97.8 82 20 150/80 98 Room Air 05/01 2258 99.3 89 20 168/78 97 Room Air 05/01 2202 89 168/78 05/01 2159 89 168/78 05/01 2159 89 168/78 05/01 1403 98.1 88 18 178/92 97 Room Air Room Air 05/01 1358 88 178/92 05/01 1043 81 194/115 05/01 1042 81 194/115
[2017-05-02 15:01] VITALS: BP 156/92
[2017-05-02 21:27] VITALS: BP 170/88
[2017-05-03 06:42] VITALS: BP 160/100
--- NOTE | 2017-05-03 12:22 | PN- Att Addend ---
Attending Addendum Attending Brief Note Hemodialysis in progress. Vital signs are stable no fever and no changes on physical patient still has a sitter. Still working on disposition plans Intake & Output 05/03 1600 05/03 0400 05/02 1600 05/02 0400 05/01 1600 05/01 0400 Intake Total 240 240 950 240 840 Output Total Balance 240 240 950 240 840 Intake, IV 10 Intake, Oral 240 240 940 240 840 Number 1 Bowel Movements Patient 221 lb 204 lb 215 lb Weight Weight Bed scale Bed scale Standing Scale Measurement Method Current Medications Sig/Grace Start time Last Medication Dose Route Stop Time Status Admin Acetaminophen 325 MG Q6-PRN PRN 04/09 2245 AC 04/22 PO 1448 Albuterol Sulfate 2 PUF Q4P PRN 04/09 2300 AC INH Aripiprazole 400 MG Q30D 04/24 0900 AC 04/24 IM 1330 Aspirin Buffered 81 MG 0800 04/10 0800 AC 05/02 PO 0931 Atorvastatin Calcium 40 MG 1700 04/10 1700 AC 05/02 PO 1624 Benztropine Mesylate 0.5 MG BID 04/10 1000 AC 05/02 PO 2048 Cinacalcet 30 MG DAILY 04/10 1000 AC 05/02 PO 0933 Epoetin [place] 8,000 UNIT TUES THURS SAT PRN 04/10 1500 AC IV Furosemide 80 MG 0800,2200 04/10 0800 AC 05/02 PO 2049 Gabapentin 300 MG AT BEDTIME 04/10 0215 AC 05/02 PO 2049 Hydralazine HCl 20 MG BID 04/10 1000 AC 05/02 PO 2049 Labetalol HCl 100 MG BID 04/10 1000 AC 05/02 PO 2048 Lamotrigine 150 MG DAILY 04/22 1000 AC 05/02 PO 0932 Multivitamins 1 TAB 1000 04/10 1000 AC 05/02 PO 0932 Omeprazole 40 MG DAILY AC 04/20 1325 AC 05/03 PO 0508 Oxcarbazepine 600 MG BID 04/10 1000 AC 05/02 PO 2048 Patient Medication 1 ED ONE ONE 05/02 1230 DC 05/02 Teaching ED 05/02 1231 1625 Propranolol HCl 10 MG BID 04/10 1000 AC 05/02 PO 2049 Quetiapine Fumarate 400 MG AT BEDTIME 04/10 0215 AC 05/02 PO 2048 Sevelamer Carbonate 2,400 MG TIDAC 04/10 0800 AC 05/02 PO 1921 Tiotropium [place] 1 PUF DAILY 04/10 1000 AC 05/02 INH 0933 Laboratory Tests 05/02/17 0715: CBC w Diff NO MAN DIFF REQ, RBC 3.11 L, MCV 91.7, MCH 30.3, RDW 17.9 H, MPV 6.9 L, Gran % 62.4, Lymphocytes % 21.2, Monocytes % 9.0, Eosinophils % 6.3 H, Basophils % 1.1, Absolute Granulocytes 5.2, Absolute Lymphocytes 1.8, Absolute Monocytes 0.7 H, Absolute Eosinophils 0.5, Absolute Basophils 0.1, PUBS MCHC 33.1 05/01/17 0900: Anion Gap 14, Estimated GFR 6 L, BUN/Creatinine Ratio 6.8 L, Calcium 8.6, CBC w Diff NO MAN DIFF REQ, RBC 2.97 L, MCV 91.6, MCH 30.1, RDW 17.9 H, MPV 7.0 L , Gran % 68.9, Lymphocytes % 16.9 L, Monocytes % 6.2, Eosinophils % 6.7 H, Basophils % 1.3, Absolute Granulocytes 5.3, Absolute Lymphocytes 1.3, Absolute Monocytes 0.5, Absolute Eosinophils 0.5, Absolute Basophils 0.1, PUBS MCHC 32.9 L Vital Signs Date Time Temp Pulse Resp B/P B/P Pulse O2 O2 Flow FiO2 Mean Ox Delivery Rate 05/03 0642 97.5 86 20 160/100 96 Room Air 05/02 2126 98.4 94 20 170/88 96 Room Air 05/02 2048 94 178/05/02 204 94 178/88 05/02 2048 94 178/05/02 1533 Room Air Room Air 05/02 1501 98.9 85 20 156/92 96 Room Air
--- NOTE | 2017-05-03 13:00 | PN- Nephrology ---
Assessment/Plan Assessment: 1. ESRD 2. Anemia, status post GI bleed 3. Bipolar disorder 4. History of chronic noncompliance Suggestion: 1. Hemodialysis today with 3+ L ultrafiltration as tolerated 2. Continue to monitor 3. Next hemodialysis for Friday 05/05 4. Awaiting disposition Subjective Subjective: Stable without complaints. Seen with hemodialysis, currently in progress. Objective Vital Signs and I&Os Vital Signs Date Time Temp Pulse Resp B/P B/P Pulse O2 O2 Flow FiO2 Mean Ox Delivery Rate 05/03 0642 97.5 86 20 160/100 96 Room Air 05/02 2127 98.4 94 20 170/88 96 Room Air 05/02 2049 94 178/88 05/02 2049 94 178/88 05/02 2048 94 178/88 05/02 1533 Room Air Room Air 05/02 1501 98.9 85 20 156/92 96 Room Air Intake & Output 05/03 1600 05/03 0400 05/02 1600 05/02 0400 05/01 1600 05/01 0400 Intake Total 240 240 950 240 840 Output Total Balance 240 240 950 240 840 Intake, IV 10 Intake, Oral 240 240 940 240 840 Number 1 Bowel Movements Patient 221 lb 204 lb 215 lb Weight Weight Bed scale Bed scale Standing Scale Measurement Method Physical Exam: General: Well-developed white male in no acute distress Skin: No rash or jaundice HEENT: Conjunctivae pale, sclerae anicteric, mucous membranes moist Neck: Without masses or thyromegaly, no supraclavicular or cervical adenopathy Chest: Clear to P & A Heart: Regular rate and rhythm without S3 or rub Abdomen: Obese, soft and nontender without palpable masses or organomegaly Extremities: Without cyanosis or edema, left lower arm AVF patent Neuro: No focal findings, no asterixis or myoclonus Results Pertinent Lab Results: Laboratory Tests 05/02 05/01 0715 0900 Chemistry Sodium (137 - 145 mmol/L) 138 Potassium (3.5 - 5.1 mmol/L) 5.6 H Chloride (98 - 107 mmol/L) 102 Carbon Dioxide (22 - 30 mmol/L) 22 Anion Gap (5 - 16) 14 BUN (9 - 20 mg/dL) 62 H Creatinine (0.7 - 1.2 mg/dL) 9.1 *H Estimated GFR (>60 ml/min) 6 L BUN/Creatinine Ratio (7 - 25 %) 6.8 L Calcium (8.4 - 10.2 mg/dL) 8.6 Hematology CBC w Diff NO MAN DIFF REQ NO MAN DIFF REQ WBC (4.8 - 10.8 /CUMM) 8.3 7.7 RBC (4.70 - 6.10 /CUMM) 3.11 L 2.97 L Hgb (14.0 - 18.0 G/DL) 9.4 L 8.9 L Hct (42 - 52 %) 28.5 L 27.2 L MCV (80.0 - 94.0 FL) 91.7 91.6 MCH (27.0 - 31.0 PG) 30.3 30.1 RDW (11.5 - 14.5 %) 17.9 H 17.9 H Plt Count (130 - 400 /CUMM) 377 365 MPV (7.4 - 10.4 FL) 6.9 L 7.0 L Gran % (42.2 - 75.2 %) 62.4 68.9 Lymphocytes % (20.5 - 51.1 %) 21.2 16.9 L Monocytes % (1.7 - 9.3 %) 9.0 6.2 Eosinophils % (0 - 5 %) 6.3 H 6.7 H Basophils % (0.0 - 2.0 %) 1.1 1.3 Absolute Granulocytes (1.4 - 6.5 /CUMM) 5.2 5.3 Absolute Lymphocytes (1.2 - 3.4 /CUMM) 1.8 1.3 Absolute Monocytes (0.10 - 0.60 /CUMM) 0.7 H 0.5 Absolute Eosinophils (0.0 - 0.7 /CUMM) 0.5 0.5 Absolute Basophils (0.0 - 0.2 /CUMM) 0.1 0.1 PUBS MCHC (33.0 - 37.0 G/DL) 33.1 32.9 L
[2017-05-03 13:54] LABS: ABSOLUTE BASOPHIL COUNT 0.1 /CUMM (0.0-0.2); ABSOLUTE EOSINOPHIL COUNT 0.5 /CUMM (0.0-0.7); ABSOLUTE GRANULOCYTE CT 7.8 /CUMM (1.4-6.5); ABSOLUTE LYMPH COUNT 1.5 /CUMM (1.2-3.4); ABSOLUTE MONOCYTE COUNT 0.7 /CUMM (0.10-0.60); BASOPHIL % 1.3 % (0.0-2.0); EOSINOPHIL % 5.1 % (0-5); GRANULOCYTE % 72.8 % (42.2-75.2); HEMATOCRIT 28.3 % (42-52); MEAN CORPUSCULAR HGB 30.1 PG (27.0-31.0); MEAN CORPUSCULAR HGB CONC 32.9 G/DL (33.0-37.0); MEAN CORPUSCULAR VOLUME 91.6 FL (80.0-94.0); PLATELET COUNT 349 /CUMM (130-400); RBC DISTRIBUTION WIDTH 18.1 % (11.5-14.5); RED BLOOD CELL CT 3.08 /CUMM (4.70-6.10); WHITE BLOOD CELL COUNT 10.7 /CUMM (4.8-10.8)
[2017-05-03 16:48] VITALS: BP 196/98
[2017-05-03 22:00] VITALS: BP 160/108
[2017-05-04 06:58] VITALS: BP 190/110
[2017-05-04 08:05] VITALS: BP 150/88
--- NOTE | 2017-05-04 11:00 | PN- Att Addend ---
Attending Addendum Attending Brief Note Patient comfortable in the chair not short of breath no chest pain no edema his blood pressure runs high at times will keep monitoring it closely no new changes on physical will continue present treatments continue hemodialysis treatment times a week, renewing his sitter daily and continue disposition plans. Intake & Output 05/04 1600 05/04 0400 05/03 1600 05/03 0400 05/02 1600 05/02 0400 Intake Total 600 720 240 950 240 Output Total 3000 Balance -2400 720 240 950 240 Intake, IV 10 Intake, Oral 600 720 240 940 240 Number 1 Bowel Movements Output, 3000 Dialysate Patient 220 lb 222 lb 204 lb Weight Weight Bed scale Standing Scale Bed scale Measurement Method Current Medications Sig/Grace Start time Last Medication Dose Route Stop Time Status Admin Acetaminophen 325 MG .STK-MED ONE 05/03 1600 DC PO 05/03 1601 Acetaminophen 325 MG Q6-PRN PRN 04/09 2245 AC 05/03 PO 1600 Albuterol Sulfate 2 PUF Q4P PRN 04/09 2300 AC INH Aripiprazole 400 MG Q30D 04/24 0900 AC 04/24 IM 1330 Aspirin Buffered 81 MG 0800 04/10 0800 AC 05/04 PO 0814 Atorvastatin Calcium 40 MG 1700 04/10 1700 AC 05/03 PO 1813 Benztropine Mesylate 0.5 MG BID 04/10 1000 AC 05/04 PO 1048 Cinacalcet 30 MG DAILY 04/10 1000 AC 05/04 PO 1048 Epoetin [place] 8,000 UNIT TUES THURS SAT PRN 04/10 1500 AC 05/03 IV 1345 Furosemide 80 MG 0800,2200 04/10 0800 AC 05/04 PO 0814 Gabapentin 300 MG AT BEDTIME 04/10 0215 AC 05/03 PO 2149 Hydralazine HCl 20 MG BID 04/10 1000 AC 05/04 PO 0631 Labetalol HCl 100 MG BID 04/10 1000 AC 05/04 PO 0631 Lamotrigine 150 MG DAILY 04/22 1000 AC 05/04 PO 1049 Multivitamins 1 TAB 1000 04/10 1000 AC 05/04 PO 1048 Omeprazole 40 MG DAILY AC 04/20 1325 AC 05/04 PO 0608 Oxcarbazepine 600 MG BID 04/10 1000 AC 05/03 PO 2148 Propranolol HCl 10 MG BID 04/10 1000 AC 05/04 PO 1047 Quetiapine Fumarate 400 MG AT BEDTIME 04/10 0215 AC 05/03 PO 2149 Sevelamer Carbonate 2,400 MG TIDAC 04/10 0800 AC 05/04 PO 0814 Tiotropium [place] 1 PUF DAILY 04/10 1000 AC 05/03 INH 1555 Laboratory Tests 05/03/17 1211: Anion Gap 13, Estimated GFR 6 L, BUN/Creatinine Ratio 6.3 L, CBC w Diff NO MAN DIFF REQ, RBC 3.08 L, MCV 91.6, MCH 30.1, RDW 18.1 H, MPV 7.0 L, Gran % 72.8, Lymphocytes % 14.1 L, Monocytes % 6.7, Eosinophils % 5.1 H, Basophils % 1.3, Absolute Granulocytes 7.8 H, Absolute Lymphocytes 1.5, Absolute Monocytes 0.7 H, Absolute Eosinophils 0.5, Absolute Basophils 0.1, PUBS MCHC 32.9 L 05/02/17 0715: CBC w Diff NO MAN DIFF REQ, RBC 3.11 L, MCV 91.7, MCH 30.3, RDW 17.9 H, MPV 6.9 L, Gran % 62.4, Lymphocytes % 21.2, Monocytes % 9.0, Eosinophils % 6.3 H, Basophils % 1.1, Absolute Granulocytes 5.2, Absolute Lymphocytes 1.8, Absolute Monocytes 0.7 H, Absolute Eosinophils 0.5, Absolute Basophils 0.1, PUBS MCHC 33.1 Vital Signs Date Time Temp Pulse Resp B/P B/P Pulse O2 O2 Flow FiO2 Mean Ox Delivery Rate 05/04 1047 80 142/84 05/04 0805 150/88 05/04 0658 98.4 85 18 190/110 95 Room Air 05/04 0631 85 190/110 05/04 0631 85 190/110 05/03 2200 98.6 82 18 160/108 96 Room Air 05/03 2150 82 160/108 05/03 214 82 160/108 05/03 214 82 160/108 05/03 1648 98.3 89 16 196/98 95 Room Air 05/03 1554 89 196/98
[2017-05-04 14:36] VITALS: BP 150/90
[2017-05-04 22:16] VITALS: BP 166/92
[2017-05-05 07:00] VITALS: BP 168/100
[2017-05-05 09:00] VITALS: BP 162/96
[2017-05-05 13:23] VITALS: BP 160/90
--- NOTE | 2017-05-05 14:53 | PN- Att Addend ---
Attending Addendum Attending Brief Note Mr. Johnston was interviewed and examined. His EMR was reviewed. He has no complaints. He is afebrile with stable heart and respiratory rates. His systolic blood pressures are warning in the 160s. Oxygen saturations are satisfactory. He is in no acute distress. Pulmonary and cardiac exams are benign. We're awaiting dialysis today. We are continuing to seek satisfactory disposition.
--- NOTE | 2017-05-05 17:12 | PN- Nephrology ---
Assessment/Plan Assessment: ESRD awaiting conservatorship. Dialysis underway Suggestion: . Subjective Subjective: Pt on dialysis Objective Vital Signs and I&Os M NAD 160/90 94 97 Lunsg clear Cor RRR Abd soft N/T Ext neg edema Results Pertinent Lab Results: labs pending
[2017-05-05 18:11] LABS: ABSOLUTE BASOPHIL COUNT 0.1 /CUMM (0.0-0.2); ABSOLUTE EOSINOPHIL COUNT 0.6 /CUMM (0.0-0.7); ABSOLUTE GRANULOCYTE CT 7.5 /CUMM (1.4-6.5); ABSOLUTE LYMPH COUNT 1.5 /CUMM (1.2-3.4); ABSOLUTE MONOCYTE COUNT 0.5 /CUMM (0.10-0.60); BASOPHIL % 0.7 % (0.0-2.0); EOSINOPHIL % 6.1 % (0-5); GRANULOCYTE % 73.6 % (42.2-75.2); HEMATOCRIT 27.5 % (42-52); MEAN CORPUSCULAR HGB 30.4 PG (27.0-31.0); MEAN CORPUSCULAR VOLUME 91.9 FL (80.0-94.0); MEAN PLATELET VOLUME 7.1 FL (7.4-10.4); PLATELET COUNT 347 /CUMM (130-400); RBC DISTRIBUTION WIDTH 18.3 % (11.5-14.5); RED BLOOD CELL CT 2.99 /CUMM (4.70-6.10); WHITE BLOOD CELL COUNT 10.2 /CUMM (4.8-10.8)
[2017-05-05 23:11] VITALS: BP 154/96
[2017-05-06 06:55] VITALS: BP 191/108
[2017-05-06 08:22] VITALS: BP 150/82
--- NOTE | 2017-05-06 14:08 | PN- Att Addend ---
Attending Addendum Attending Brief Note Mr. aSnches was interviewed and examined. His EMR was reviewed. He has no complaints today. He is status post hemodialysis yesterday. He remains afebrile with stable heart and respiratory rates. Systolic blood pressure remains mildly elevated. Physical exam is unchanged and remains benign. Pre-hemodialysis potassium was noted to be 5.8. We are continuing long term care and are bed search.
[2017-05-06 14:39] VITALS: BP 142/86
[2017-05-06 22:00] VITALS: BP 160/100
[2017-05-07 07:29] VITALS: BP 160/102
--- NOTE | 2017-05-07 11:01 | PN- Att Addend ---
Attending Addendum Attending Brief Note No new issues. Blood pressure fluctuating. Patient is afebrile. No shortness of breath. Patient continues with his hemodialysis treatment times a week and disposition plans continue to find the past arrangements for the patient to be able to be discharged. Intake & Output 05/07 1600 05/07 0400 05/06 1600 05/06 0400 05/05 1600 05/05 0400 Intake Total 647 476 8204 350 700 120 Output Total Balance 567 491 5382 350 700 120 Intake, Oral 694 707 3487 350 700 120 Patient 210 lb 214 lb Weight Weight Bed scale Measurement Method Current Medications Sig/Grace Start time Last Medication Dose Route Stop Time Status Admin Acetaminophen 325 MG Q6-PRN PRN 04/09 2245 AC 05/03 PO 1600 Albuterol Sulfate 2 PUF Q4P PRN 04/09 2300 AC INH Aripiprazole 400 MG Q30D 04/24 0900 AC 04/24 IM 1330 Aspirin Buffered 81 MG 0800 04/10 0800 AC 05/07 PO 0939 Atorvastatin Calcium 40 MG 1700 04/10 1700 AC 05/06 PO 1636 Benztropine Mesylate 0.5 MG BID 04/10 1000 AC 05/07 PO 0937 Cinacalcet 30 MG DAILY 04/10 1000 AC 05/07 PO 0937 Epoetin [place] 8,000 UNIT TUES THURS SAT PRN 04/10 1500 AC 05/03 IV 1345 Furosemide 80 MG 0800,2200 04/10 0800 AC 05/07 PO 0940 Gabapentin 300 MG AT BEDTIME 04/10 0215 AC 05/06 PO 2122 Hydralazine HCl 20 MG BID 04/10 1000 AC 05/07 PO 0939 Labetalol HCl 100 MG BID 04/10 1000 AC 05/07 PO 0936 Lamotrigine 150 MG DAILY 04/22 1000 AC 05/07 PO 0932 Multivitamins 1 TAB 1000 04/10 1000 AC 05/07 PO 0937 Omeprazole 40 MG DAILY AC 04/20 1325 AC 05/07 PO 0604 Oxcarbazepine 600 MG BID 04/10 1000 AC 05/07 PO 0934 Propranolol HCl 10 MG BID 04/10 1000 AC 05/07 PO 0938 Quetiapine Fumarate 400 MG AT BEDTIME 04/10 0215 AC 05/06 PO 2122 Sevelamer Carbonate 2,400 MG TIDAC 04/10 0800 AC 05/07 PO 0933 Tiotropium [place] 1 PUF DAILY 04/10 1000 AC 05/07 INH 0952 Laboratory Tests 05/05/17 1515: Anion Gap 14, Estimated GFR 6 L, BUN/Creatinine Ratio 6.8 L, CBC w Diff NO MAN DIFF REQ, RBC 2.99 L, MCV 91.9, MCH 30.4, RDW 18.3 H, MPV 7.1 L, Gran % 73.6, Lymphocytes % 14.8 L, Monocytes % 4.8, Eosinophils % 6.1 H, Basophils % 0.7, Absolute Granulocytes 7.5 H, Absolute Lymphocytes 1.5, Absolute Monocytes 0.5, Absolute Eosinophils 0.6, Absolute Basophils 0.1, PUBS MCHC 33.0 Vital Signs Date Time Temp Pulse Resp B/P B/P Pulse O2 O2 Flow FiO2 Mean Ox Delivery Rate 05/07 0839 97 178/90 05/07 0938 97 178/90 05/07 0936 97 178/90 05/07 0729 97.4 95 16 160/102 94 Room Air 05/06 2200 98.0 91 16 160/100 97 Room Air 05/06 2122 91 160/100 05/06 2123 91 160/100 05/06 2123 91 160/100 05/06 1439 97.9 87 16 142/86 96
[2017-05-07 14:49] VITALS: BP 110/71
[2017-05-07 22:25] VITALS: BP 168/100
[2017-05-08 06:19] VITALS: BP 182/110
[2017-05-08 09:41] VITALS: BP 180/100
--- NOTE | 2017-05-08 10:20 | PN- Att Addend ---
Attending Addendum Attending Brief Note Patient ambulating in the room his blood pressure has been running high last one about 160 -170/100 if he continues to be elevated we'll have to adjust his medications. Continue hemodialysis 3 times a week and continue disposition plans. Also continue the sitter. Intake & Output 05/08 1600 05/08 0400 05/07 1600 05/07 0400 05/06 1600 05/06 0400 Intake Total 240 240 804 698 0390 350 Output Total Balance 240 240 856 381 6412 350 Intake, Oral 240 240 585 021 6947 350 Number 1 Bowel Movements Patient 219 lb 210 lb Weight Weight Bed scale Measurement Method Current Medications Sig/Grace Start time Last Medication Dose Route Stop Time Status Admin Acetaminophen 325 MG Q6-PRN PRN 04/09 2245 AC 05/03 PO 1600 Albuterol Sulfate 2 PUF Q4P PRN 04/09 2300 AC 05/07 INH 1621 Aripiprazole 400 MG Q30D 04/24 0900 AC 04/24 IM 1330 Aspirin Buffered 81 MG 0800 04/10 0800 AC 05/08 PO 0805 Atorvastatin Calcium 40 MG 1700 04/10 1700 AC 05/07 PO 1858 Benztropine Mesylate 0.5 MG BID 04/10 1000 AC 05/08 PO 0804 Cinacalcet 30 MG DAILY 04/10 1000 AC 05/08 PO 0804 Epoetin [place] 8,000 UNIT TUES THURS SAT PRN 04/10 1500 AC 05/03 IV 1345 Furosemide 80 MG 0800,2200 04/10 0800 AC 05/08 PO 0805 Gabapentin 300 MG AT BEDTIME 04/10 0215 AC 05/07 PO 2141 Hydralazine HCl 20 MG BID 04/10 1000 AC 05/08 PO 0804 Labetalol HCl 100 MG BID 04/10 1000 AC 05/08 PO 0804 Lamotrigine 150 MG DAILY 04/22 1000 AC 05/08 PO 0805 Multivitamins 1 TAB 1000 04/10 1000 AC 05/08 PO 0803 Omeprazole 40 MG DAILY AC 04/20 1325 AC 05/08 PO 0535 Oxcarbazepine 600 MG BID 04/10 1000 AC 05/08 PO 0804 Patient Medication 1 ED ONE ONE 05/07 1145 DC 05/07 Teaching ED 05/07 1146 1243 Propranolol HCl 10 MG BID 04/10 1000 AC 05/08 PO 0804 Quetiapine Fumarate 400 MG AT BEDTIME 04/10 0215 AC 05/07 PO 2141 Sevelamer Carbonate 2,400 MG TIDAC 04/10 0800 AC 05/08 PO 0803 Tiotropium [place] 1 PUF DAILY 04/10 1000 AC 05/07 INH 0952 Laboratory Tests 05/05/17 1515: Anion Gap 14, Estimated GFR 6 L, BUN/Creatinine Ratio 6.8 L, CBC w Diff NO MAN DIFF REQ, RBC 2.99 L, MCV 91.9, MCH 30.4, RDW 18.3 H, MPV 7.1 L, Gran % 73.6, Lymphocytes % 14.8 L, Monocytes % 4.8, Eosinophils % 6.1 H, Basophils % 0.7, Absolute Granulocytes 7.5 H, Absolute Lymphocytes 1.5, Absolute Monocytes 0.5, Absolute Eosinophils 0.6, Absolute Basophils 0.1, PUBS MCHC 33.0
[2017-05-08 11:00] VITALS: BP 180/110
[2017-05-08 12:06] VITALS: BP 166/96
[2017-05-08 14:05] LABS: ABSOLUTE BASOPHIL COUNT 0.1 /CUMM (0.0-0.2); ABSOLUTE EOSINOPHIL COUNT 0.6 /CUMM (0.0-0.7); ABSOLUTE GRANULOCYTE CT 6.3 /CUMM (1.4-6.5); ABSOLUTE LYMPH COUNT 1.4 /CUMM (1.2-3.4); ABSOLUTE MONOCYTE COUNT 0.5 /CUMM (0.10-0.60); BASOPHIL % 0.9 % (0.0-2.0); EOSINOPHIL % 6.9 % (0-5); HEMATOCRIT 28.3 % (42-52); MEAN CORPUSCULAR HGB 29.9 PG (27.0-31.0); MEAN CORPUSCULAR HGB CONC 32.7 G/DL (33.0-37.0); MEAN CORPUSCULAR VOLUME 91.4 FL (80.0-94.0); MEAN PLATELET VOLUME 6.9 FL (7.4-10.4); PLATELET COUNT 337 /CUMM (130-400); RBC DISTRIBUTION WIDTH 17.6 % (11.5-14.5); WHITE BLOOD CELL COUNT 8.9 /CUMM (4.8-10.8)
[2017-05-08 14:20] LABS: GRANULOCYTE % 70.6 % (42.2-75.2)
--- NOTE | 2017-05-08 14:55 | PN- Nephrology ---
Assessment/Plan Assessment: 1. End-stage renal disease. Next Dialysis will be on 2. BP- decrease target weight to 99.5 Kg Suggestion: 1. Continue with strict I's and O's and daily weights. 2. change EDW to 99.5 Subjective Subjective: seen with HD. feels ok . Dyspneic yesterday Objective Vital Signs and I&Os Vital Signs Date Time Temp Pulse Resp B/P B/P Pulse O2 O2 Flow FiO2 Mean Ox Delivery Rate 05/08 1206 166/96 05/08 1103 180/110 05/08 1100 180/110 05/08 0941 180/100 05/08 08 85 180/110 05/08 0804 85 180/110 05/08 0804 85 180/110 05/08 0619 97.8 85 20 182/110 95 05/07 2225 98.9 94 20 168/100 96 Nasal 2.0L Cannula 05/07 2142 168/100 05/07 2142 168/100 05/07 2142 168/10 05/07 1600 98 Nasal 2.0L Cannula Intake & Output 05/08 1600 05/08 0400 05/07 1600 05/07 0400 05/06 1600 05/06 0400 Intake Total 640 240 729 823 8970 350 Output Total Balance 640 240 526 737 2926 350 Intake, IV 0 Intake, Oral 640 240 466 924 3324 350 Number 1 Bowel Movements Patient 219 lb 210 lb Weight Weight Bed scale Measurement Method Physical Exam: General Appearance: well developed/nourished, no apparent distress, alert, awake Head: atraumatic, normal appearance Neck: normal inspection, supple, trachea mid line, no midline tenderness Respiratory: normal breath sounds, chest non-tender Cardiovascular: regular rate/rhythm, edema Abdomen: normal bowel sounds, soft, non-tender, no organomegaly Back: normal inspection, normal range of motion Extremities: normal inspection, no edema Neurologic/Psychiatric: no motor/sensory deficits, awake, alert Skin: intact, normal color Current Medications: Current Medications Sig/Grace Start time Last Medication Dose Route Stop Time Status Admin Acetaminophen 325 MG Q6-PRN PRN 04/09 2245 AC 05/03 PO 1600 Albuterol Sulfate 2 PUF Q4P PRN 04/09 2300 AC 05/07 INH 1621 Aripiprazole 400 MG Q30D 04/24 0900 AC 04/24 IM 1330 Aspirin Buffered 81 MG 0800 04/10 0800 AC 05/08 PO 0805 Atorvastatin Calcium 40 MG 1700 04/10 1700 AC 05/07 PO 1858 Benztropine Mesylate 0.5 MG BID 04/10 1000 AC 05/08 PO 0804 Cinacalcet 30 MG DAILY 04/10 1000 AC 05/08 PO 0804 Epoetin [place] 8,000 UNIT TUES THURS SAT PRN 04/10 1500 AC 05/03 IV 1345 Furosemide 80 MG 0800,2200 04/10 0800 AC 05/08 PO 0805 Gabapentin 300 MG AT BEDTIME 04/10 0215 AC 05/07 PO 2141 Hydralazine HCl 20 MG TID 05/08 1100 AC 05/08 PO 1103 Hydralazine HCl 20 MG BID 04/10 1000 DC 05/08 PO 0804 Labetalol HCl 100 MG BID 04/10 1000 AC 05/08 PO 0804 Lamotrigine 150 MG DAILY 04/22 1000 AC 05/08 PO 0805 Multivitamins 1 TAB 1000 04/10 1000 AC 05/08 PO 0803 Omeprazole 40 MG DAILY AC 04/20 1325 AC 05/08 PO 0535 Oxcarbazepine 600 MG BID 04/10 1000 AC 05/08 PO 0804 Propranolol HCl 10 MG BID 04/10 1000 AC 05/08 PO 0804 Quetiapine Fumarate 400 MG AT BEDTIME 04/10 0215 AC 05/07 PO 2141 Sevelamer Carbonate 2,400 MG TIDAC 04/10 0800 AC 05/08 PO 1218 Tiotropium [place] 1 PUF DAILY 04/10 1000 AC 05/08 INH 1230 Results Pertinent Lab Results: Laboratory Tests 05/08 05/05 1300 1515 Chemistry Sodium (137 - 145 mmol/L) 140 137 Potassium (3.5 - 5.1 mmol/L) 5.5 H 5.8 H Chloride (98 - 107 mmol/L) 100 99 Carbon Dioxide (22 - 30 mmol/L) 23 23 Anion Gap (5 - 16) 18 H 14 BUN (9 - 20 mg/dL) 65 H 62 H Creatinine (0.7 - 1.2 mg/dL) 9.3 *H 9.1 *H Estimated GFR (>60 ml/min) 6 L 6 L BUN/Creatinine Ratio (7 - 25 %) 7.0 6.8 L Calcium (8.4 - 10.2 mg/dL) 8.4 Hematology CBC w Diff NO MAN DIFF REQ NO MAN DIFF REQ WBC (4.8 - 10.8 /CUMM) 8.9 10.2 RBC (4.70 - 6.10 /CUMM) 3.10 L 2.99 L Hgb (14.0 - 18.0 G/DL) 9.3 L 9.1 L Hct (42 - 52 %) 28.3 L 27.5 L MCV (80.0 - 94.0 FL) 91.4 91.9 MCH (27.0 - 31.0 PG) 29.9 30.4 RDW (11.5 - 14.5 %) 17.6 H 18.3 H Plt Count (130 - 400 /CUMM) 337 347 MPV (7.4 - 10.4 FL) 6.9 L 7.1 L Gran % (42.2 - 75.2 %) 70.6 73.6 Lymphocytes % (20.5 - 51.1 %) 16.0 L 14.8 L Monocytes % (1.7 - 9.3 %) 5.6 4.8 Eosinophils % (0 - 5 %) 6.9 H 6.1 H Basophils % (0.0 - 2.0 %) 0.9 0.7 Absolute Granulocytes (1.4 - 6.5 /CUMM) 6.3 7.5 H Absolute Lymphocytes (1.2 - 3.4 /CUMM) 1.4 1.5 Absolute Monocytes (0.10 - 0.60 /CUMM) 0.5 0.5 Absolute Eosinophils (0.0 - 0.7 /CUMM) 0.6 0.6 Absolute Basophils (0.0 - 0.2 /CUMM) 0.1 0.1 PUBS MCHC (33.0 - 37.0 G/DL) 32.7 L 33.0
[2017-05-08 19:14] VITALS: BP 192/98
[2017-05-08 22:11] VITALS: BP 169/102
[2017-05-09 05:42] VITALS: BP 148/86
--- NOTE | 2017-05-09 10:43 | PN- Att Addend ---
Attending Addendum Attending Brief Note No new issues comfortably in the room she monitor in the room with him ordered renewed every day BP is better today to hydralazine dose was increased to 3 times a day. No other new changes. Continue hemodialysis 2 times a week and disposition plans. Intake & Output 05/09 1600 05/09 0400 05/08 1600 05/08 0400 05/07 1600 05/07 0400 Intake Total 120 720 640 240 840 720 Output Total Balance 120 720 640 240 840 720 Intake, IV 0 Intake, Oral 120 720 640 240 840 720 Number 1 Bowel Movements Patient 206 lb 219 lb Weight Weight Bed scale Measurement Method Current Medications Sig/Grace Start time Last Medication Dose Route Stop Time Status Admin Acetaminophen 325 MG Q6-PRN PRN 04/09 2245 AC 05/08 PO 1925 Albuterol Sulfate 2 PUF Q4P PRN 04/09 2300 AC 05/07 INH 1621 Aripiprazole 400 MG Q30D 04/24 0900 AC 04/24 IM 1330 Aspirin Buffered 81 MG 0800 04/10 0800 AC 05/09 PO 0822 Atorvastatin Calcium 40 MG 1700 12 1700 AC 05/08 PO 1925 Benztropine Mesylate 0.5 MG BID 04/10 1000 AC 05/09 PO 0822 Cinacalcet 30 MG DAILY 04/10 1000 AC 05/09 PO 0820 Epoetin [place] 8,000 UNIT TUES THURS SAT PRN 04/10 1500 AC 05/03 IV 1345 Furosemide 80 MG 0800,2200 12 0800 AC 05/09 PO 0819 Gabapentin 300 MG AT BEDTIME 04/10 0215 AC 05/08 PO 2101 Hydralazine HCl 20 MG TID 05/08 1100 AC 05/09 PO 0824 Hydralazine HCl 20 MG BID 04/10 1000 DC 05/08 PO 0804 Labetalol HCl 100 MG BID 04/10 1000 AC 05/09 PO 0825 Lamotrigine 150 MG DAILY 04/22 1000 AC 05/09 PO 0825 Multivitamins 1 TAB 1000 04/10 1000 AC 05/09 PO 0821 Omeprazole 40 MG DAILY AC 04/20 1325 AC 05/09 PO 0653 Oxcarbazepine 600 MG BID 04/10 1000 AC 05/09 PO 0821 Propranolol HCl 10 MG BID 04/10 1000 AC 05/09 PO 0825 Quetiapine Fumarate 400 MG AT BEDTIME 04/10 0215 AC 05/08 PO 2055 Sevelamer Carbonate 2,400 MG TIDAC 04/10 0800 AC 05/09 PO 08 Tiotropium [place] 1 PUF DAILY 04/10 1000 AC 05/09 INH 0817 Laboratory Tests 05/08/17 1300: Anion Gap 18 H, Estimated GFR 6 L, BUN/Creatinine Ratio 7.0, Calcium 8.4, CBC w Diff NO MAN DIFF REQ, RBC 3.10 L, MCV 91.4, MCH 29.9, RDW 17.6 H, MPV 6.9 L , Gran % 70.6, Lymphocytes % 16.0 L, Monocytes % 5.6, Eosinophils % 6.9 H, Basophils % 0.9, Absolute Granulocytes 6.3, Absolute Lymphocytes 1.4, Absolute Monocytes 0.5, Absolute Eosinophils 0.6, Absolute Basophils 0.1, PUBS MCHC 32.7 L Vital Signs Date Time Temp Pulse Resp B/P B/P Pulse O2 O2 Flow FiO2 Mean Ox Delivery Rate 05/09 824 152/86 05/09 823 152/86 05/09 0542 97.9 94 20 148/86 96 Room Air 05/08 2211 98.6 86 18 169/102 94 Room Air 05/08 2100 192/98 05/08 2058 192/98 05/08 2056 192/98 05/08 1914 192/98 05/08 1206 166/96 05/08 1103 180/110 05/08 1100 180/110
[2017-05-09 14:17] VITALS: BP 164/100
[2017-05-09 22:13] VITALS: BP 180/114
[2017-05-10 06:12] VITALS: BP 162/100
[2017-05-10 09:36] LABS: ABSOLUTE BASOPHIL COUNT 0.1 /CUMM (0.0-0.2); ABSOLUTE EOSINOPHIL COUNT 0.5 /CUMM (0.0-0.7); ABSOLUTE GRANULOCYTE CT 5.4 /CUMM (1.4-6.5); ABSOLUTE LYMPH COUNT 1.4 /CUMM (1.2-3.4); ABSOLUTE MONOCYTE COUNT 0.6 /CUMM (0.10-0.60); EOSINOPHIL % 6.7 % (0-5); HEMATOCRIT 30.3 % (42-52); MEAN CORPUSCULAR HGB 29.3 PG (27.0-31.0); MEAN CORPUSCULAR VOLUME 91.5 FL (80.0-94.0); MEAN PLATELET VOLUME 6.8 FL (7.4-10.4); PLATELET COUNT 333 /CUMM (130-400); RBC DISTRIBUTION WIDTH 17.8 % (11.5-14.5); RED BLOOD CELL CT 3.31 /CUMM (4.70-6.10); WHITE BLOOD CELL COUNT 8.1 /CUMM (4.8-10.8)
--- NOTE | 2017-05-10 10:23 | PN- Nephrology ---
Assessment/Plan Assessment: 1. End-stage renal disease. Next Dialysis will be on Sunday 2. BP- changes noted. Suspect that he is actually losing body mass. His ultrafiltration today will be 5 kg 3. His intradialytic weight gains are generous. Fortunately he is a rather generously proportioned in individual so that such intradialytic weight gains tolerated fairly well. This being said, suspect that his high blood pressure may be related to volume overload. Suggestion: 1. Continue with strict I's and O's and daily weights. 2. change EDW to 97.5 this will be challenged further today 3. His next dialysis will be on Sunday. Subjective Subjective: Still complaining of some shortness of breath. His weight before dialysis was 104 kg on Sunday. Postdialysis was 97.5. Objective Vital Signs and I&Os Vital Signs Date Time Temp Pulse Resp B/P B/P Pulse O2 O2 Flow FiO2 Mean Ox Delivery Rate 05/10 611 97.6 90 20 162/100 96 Room Air 05/09 2213 98.0 87 20 180/114 97 Room Air 05/09 1417 98.2 67 20 164/100 97 Room Air Intake & Output 05/10 1600 05/10 0400 05/09 1600 05/09 0400 05/08 1600 05/08 0400 Intake Total 480 500 620 720 640 240 Output Total Balance 480 500 620 720 640 240 Intake, IV 0 0 Intake, Oral 480 500 620 720 640 240 Number 0 Bowel Movements Patient 204 lb 206 lb 219 lb Weight Weight Bed scale Measurement Method Current Medications: Current Medications Sig/Grace Start time Last Medication Dose Route Stop Time Status Admin Acetaminophen 325 MG Q6-PRN PRN 04/09 2245 AC 05/08 PO 1925 Albuterol Sulfate 2 PUF Q4P PRN 04/09 2300 AC 05/07 INH 1621 Aripiprazole 400 MG Q30D 04/24 0900 AC 04/24 IM 1330 Aspirin Buffered 81 MG 0804/10 0800 AC 05/09 PO 0822 Atorvastatin Calcium 40 MG 1700 04/10 1700 AC 05/09 PO 1643 Benztropine Mesylate 0.5 MG BID 04/10 1000 AC 05/09 PO 2146 Cinacalcet 30 MG DAILY 04/10 1000 AC 05/09 PO 0820 Epoetin [place] 8,000 UNIT THURS SAT PRN 04/10 1500 AC 05/03 IV 1345 Furosemide 80 MG 0800,2200 04/10 0800 AC 05/09 PO 2145 Gabapentin 300 MG AT BEDTIME 04/10 0215 AC 05/09 PO 2143 Hydralazine HCl 20 MG TID 05/08 1100 AC 05/09 PO 2145 Labetalol HCl 100 MG BID 04/10 1000 AC 05/09 PO 2143 Lamotrigine 150 MG DAILY 04/22 1000 AC 05/09 PO 0825 Multivitamins 1 TAB 1000 04/10 1000 AC 05/09 PO 0821 Omeprazole 40 MG DAILY AC 04/20 1325 AC 05/10 PO 0529 Oxcarbazepine 600 MG BID 04/10 1000 AC 05/09 PO 2144 Patient Medication 1 ED ONE ONE 05/09 1130 DC 05/09 Teaching ED 05/09 1131 1200 Propranolol HCl 10 MG BID 04/10 1000 AC 05/09 PO 2142 Quetiapine Fumarate 400 MG AT BEDTIME 04/10 0215 AC 05/09 PO 2144 Sevelamer Carbonate 2,400 MG TIDAC 04/10 0800 AC 05/09 PO 1640 Tiotropium [place] 1 PUF DAILY 04/10 1000 AC 05/09 INH 0817 Results Pertinent Lab Results: Laboratory Tests 05/10 05/10 1300 0900 Chemistry Sodium (137 - 145 mmol/L) 143 Potassium (3.5 - 5.1 mmol/L) 5.3 H Chloride (98 - 107 mmol/L) 101 Carbon Dioxide (22 - 30 mmol/L) 23 Anion Gap (5 - 16) 19 H BUN (9 - 20 mg/dL) Pending 48 H Creatinine (0.7 - 1.2 mg/dL) 8.2 *H Estimated GFR (>60 ml/min) 7 L BUN/Creatinine Ratio (7 - 25 %) 5.9 L Phosphorus (2.5 - 4.5 mg/dL) 3.4 Magnesium (1.6 - 2.3 mg/dL) 2.0 Albumin (3.5 - 5.0 g/dL) 3.9 Hematology CBC w Diff NO MAN DIFF REQ WBC (4.8 - 10.8 /CUMM) 8.1 RBC (4.70 - 6.10 /CUMM) 3.31 L Hgb (14.0 - 18.0 G/DL) 9.7 L Hct (42 - 52 %) 30.3 L MCV (80.0 - 94.0 FL) 91.5 MCH (27.0 - 31.0 PG) 29.3 RDW (11.5 - 14.5 %) 17.8 H Plt Count (130 - 400 /CUMM) 333 MPV (7.4 - 10.4 FL) 6.8 L Gran % (42.2 - 75.2 %) 67.0 Lymphocytes % (20.5 - 51.1 %) 17.4 L Monocytes % (1.7 - 9.3 %) 7.9 Eosinophils % (0 - 5 %) 6.7 H Basophils % (0.0 - 2.0 %) 1.0 Absolute Granulocytes (1.4 - 6.5 /CUMM) 5.4 Absolute Lymphocytes (1.2 - 3.4 /CUMM) 1.4 Absolute Monocytes (0.10 - 0.60 /CUMM) 0.6 Absolute Eosinophils (0.0 - 0.7 /CUMM) 0.5 Absolute Basophils (0.0 - 0.2 /CUMM) 0.1 PUBS MCHC (33.0 - 37.0 G/DL) 32.0 L 05/08 1300 Chemistry Sodium (137 - 145 mmol/L) 140 Potassium (3.5 - 5.1 mmol/L) 5.5 H Chloride (98 - 107 mmol/L) 100 Carbon Dioxide (22 - 30 mmol/L) 23 Anion Gap (5 - 16) 18 H BUN (9 - 20 mg/dL) 65 H Creatinine (0.7 - 1.2 mg/dL) 9.3 *H Estimated GFR (>60 ml/min) 6 L BUN/Creatinine Ratio (7 - 25 %) 7.0 Calcium (8.4 - 10.2 mg/dL) 8.4 Hematology CBC w Diff NO MAN DIFF REQ WBC (4.8 - 10.8 /CUMM) 8.9 RBC (4.70 - 6.10 /CUMM) 3.10 L Hgb (14.0 - 18.0 G/DL) 9.3 L Hct (42 - 52 %) 28.3 L MCV (80.0 - 94.0 FL) 91.4 MCH (27.0 - 31.0 PG) 29.9 RDW (11.5 - 14.5 %) 17.6 H Plt Count (130 - 400 /CUMM) 337 MPV (7.4 - 10.4 FL) 6.9 L Gran % (42.2 - 75.2 %) 70.6 Lymphocytes % (20.5 - 51.1 %) 16.0 L Monocytes % (1.7 - 9.3 %) 5.6 Eosinophils % (0 - 5 %) 6.9 H Basophils % (0.0 - 2.0 %) 0.9 Absolute Granulocytes (1.4 - 6.5 /CUMM) 6.3 Absolute Lymphocytes (1.2 - 3.4 /CUMM) 1.4 Absolute Monocytes (0.10 - 0.60 /CUMM) 0.5 Absolute Eosinophils (0.0 - 0.7 /CUMM) 0.6 Absolute Basophils (0.0 - 0.2 /CUMM) 0.1 PUBS MCHC (33.0 - 37.0 G/DL) 32.7 L
--- NOTE | 2017-05-10 12:02 | PN- Att Addend ---
Attending Addendum Attending Brief Note Hemodialysis in progress. Patient has no shortness of breath no chest pain. His blood pressures intermittently still running a little high, would monitor and if necessary adjust his medicines more no other changes on physical disposition plans continue. Intake & Output 05/10 1600 05/10 0400 05/09 1600 05/09 0400 05/08 1600 05/08 0400 Intake Total 480 500 620 720 640 240 Output Total Balance 480 500 620 720 640 240 Intake, IV 0 0 Intake, Oral 480 500 620 720 640 240 Number 0 Bowel Movements Patient 204 lb 206 lb 219 lb Weight Weight Bed scale Measurement Method Current Medications Sig/Grace Start time Last Medication Dose Route Stop Time Status Admin Acetaminophen 325 MG Q6-PRN PRN 04/09 2245 AC 05/08 PO 1925 Albuterol Sulfate 2 PUF Q4P PRN 04/09 2300 AC 05/07 INH 1621 Aripiprazole 400 MG Q30D 04/24 0900 AC 04/24 IM 1330 Aspirin Buffered 81 MG 0800 04/10 0800 AC 05/09 PO 0822 Atorvastatin Calcium 40 MG 1700 04/10 1700 AC 05/09 PO 1643 Benztropine Mesylate 0.5 MG BID 04/10 1000 AC 05/09 PO 2146 Cinacalcet 30 MG DAILY 04/10 1000 AC 05/09 PO 0820 Epoetin Florentino 8,000 UNIT TUES THURS SAT PRN 04/10 1500 AC 05/03 IV 1345 Furosemide 80 MG 0800,2200 04/10 0800 AC 05/09 PO 2145 Gabapentin 300 MG AT BEDTIME 04/10 0215 AC 05/09 PO 2143 Hydralazine HCl 20 MG TID 05/08 1100 AC 05/09 PO 2145 Labetalol HCl 100 MG BID 04/10 1000 AC 05/09 PO 2143 Lamotrigine 150 MG DAILY 04/22 1000 AC 05/09 PO 0825 Multivitamins 1 TAB 1000 04/10 1000 AC 05/09 PO 0821 Omeprazole 40 MG DAILY AC 04/20 1325 AC 05/10 PO 0529 Oxcarbazepine 600 MG BID 04/10 1000 AC 05/09 PO 2144 Propranolol HCl 10 MG BID 04/10 1000 AC 05/09 PO 2142 Quetiapine Fumarate 400 MG AT BEDTIME 04/10 0215 AC 05/09 PO 2144 Sevelamer Carbonate 2,400 MG TIDAC 04/10 0800 AC 05/09 PO 1640 Tiotropium [place] 1 PUF DAILY 04/10 1000 AC 05/09 INH 0817 Laboratory Tests 05/10/17 0900: Anion Gap 19 H, Estimated GFR 7 L, BUN/Creatinine Ratio 5.9 L, Phosphorus 3.4 , Magnesium 2.0, Albumin 3.9, CBC w Diff NO MAN DIFF REQ, RBC 3.31 L, MCV 91.5, MCH 29.3, RDW 17.8 H, MPV 6.8 L, Gran % 67.0, Lymphocytes % 17.4 L, Monocytes % 7.9, Eosinophils % 6.7 H, Basophils % 1.0, Absolute Granulocytes 5.4, Absolute Lymphocytes 1.4, Absolute Monocytes 0.6, Absolute Eosinophils 0.5, Absolute Basophils 0.1, PUBS MCHC 32.0 L 05/08/17 1300: Anion Gap 18 H, Estimated GFR 6 L, BUN/Creatinine Ratio 7.0, Calcium 8.4, CBC w Diff NO MAN DIFF REQ, RBC 3.10 L, MCV 91.4, MCH 29.9, RDW 17.6 H, MPV 6.9 L , Gran % 70.6, Lymphocytes % 16.0 L, Monocytes % 5.6, Eosinophils % 6.9 H, Basophils % 0.9, Absolute Granulocytes 6.3, Absolute Lymphocytes 1.4, Absolute Monocytes 0.5, Absolute Eosinophils 0.6, Absolute Basophils 0.1, PUBS MCHC 32.7 L Vital Signs Date Time Temp Pulse Resp B/P B/P Pulse O2 O2 Flow FiO2 Mean Ox Delivery Rate 05/10 611 97.6 90 20 162/100 96 Room Air 05/09 2213 98.0 87 20 180/114 97 Room Air 05/09 1417 98.2 67 20 164/100 97 Room Air Continue sitter
[2017-05-10 21:54] VITALS: BP 156/80
[2017-05-11 06:36] VITALS: BP 128/78
[2017-05-11 08:13] VITALS: BP 158/94
--- NOTE | 2017-05-11 13:15 | PN- Att Addend ---
Attending Addendum Attending Brief Note New complaint is a toothache. Tylenol didn't work. I order off tramadol was given and will monitor to probably will have to follow with a dentist once disposition plans are made for his discharge from the hospital BP a little better today still on the high side. Continue hemodialysis treatment times a week continue to monitor sitter Intake & Output 05/11 1600 05/11 0400 05/10 1600 05/10 0400 05/09 1600 05/09 0400 Intake Total 070 526 8728 500 620 720 Output Total 5000 Balance 350 350 -3920 500 620 720 Intake, IV 0 Intake, Oral 059 754 1323 500 620 720 Number 0 Bowel Movements Output, 5000 Dialysate Patient 217 lb 204 lb 206 lb Weight Weight Chair scale Measurement Method Current Medications Sig/Grace Start time Last Medication Dose Route Stop Time Status Admin Acetaminophen 325 MG Q6-PRN PRN 04/09 2245 AC 05/11 PO 0637 Albuterol Sulfate 2 PUF Q4P PRN 04/09 2300 AC 05/07 INH 1621 Aripiprazole 400 MG Q30D 04/24 0900 AC 04/24 IM 1330 Aspirin Buffered 81 MG 0800 04/10 0800 AC 05/11 PO 0812 Atorvastatin Calcium 40 MG 1700 04/10 1700 AC 05/10 PO 1629 Benztropine Mesylate 0.5 MG BID 04/10 1000 AC 05/11 PO 1056 Cinacalcet 30 MG DAILY 04/10 1000 AC 05/11 PO 105 Epoetin Florent[place] 8,000 UNIT TUES THURS SAT PRN 04/10 1500 AC 05/03 IV 1345 Furosemide 80 MG 0800,2200 04/10 0800 AC 05/11 PO 0811 Gabapentin 300 MG AT BEDTIME 04/10 0215 AC 05/10 PO 205 Hydralazine HCl 20 MG TID 05/08 1100 AC 05/11 PO 1057 Labetalol HCl 100 MG BID 04/10 1000 AC 05/11 PO 1057 Lamotrigine 150 MG DAILY 04/22 1000 AC 05/11 PO 1056 Multivitamins 1 TAB 1000 04/10 1000 AC 05/11 PO 1057 Omeprazole 40 MG DAILY AC 04/20 1325 AC 05/11 PO 0636 Oxcarbazepine 600 MG BID 04/10 1000 AC 05/11 PO 1057 Propranolol HCl 10 MG BID 04/10 1000 AC 05/11 PO 1057 Quetiapine Fumarate 400 MG AT BEDTIME 04/10 0215 AC 05/10 PO 2050 Sevelamer Carbonate 2,400 MG TIDAC 04/10 0800 AC 05/11 PO 1241 Tiotropium [place] 1 PUF DAILY 04/10 1000 AC 05/11 INH 1057 Tramadol HCl 50 MG ONCE ONE 05/11 0959 DC 05/11 PO 05/11 1000 1026 Laboratory Tests 05/10/17 1300: 05/10/17 0900: Anion Gap 19 H, Estimated GFR 7 L, BUN/Creatinine Ratio 5.9 L, Phosphorus 3.4 , Magnesium 2.0, Albumin 3.9, CBC w Diff NO MAN DIFF REQ, RBC 3.31 L, MCV 91.5, MCH 29.3, RDW 17.8 H, MPV 6.8 L, Gran % 67.0, Lymphocytes % 17.4 L, Monocytes % 7.9, Eosinophils % 6.7 H, Basophils % 1.0, Absolute Granulocytes 5.4, Absolute Lymphocytes 1.4, Absolute Monocytes 0.6, Absolute Eosinophils 0.5, Absolute Basophils 0.1, PUBS MCHC 32.0 L Vital Signs Date Time Temp Pulse Resp B/P B/P Pulse O2 O2 Flow FiO2 Mean Ox Delivery Rate 05/11 1057 88 158/94 05/11 1057 88 158/94 05/11 105 88 158/94 05/11 812 88 158/94 05/11 06 97.8 82 20 128/78 94 Room Air 05/10 2153 98.4 82 18 156/80 96 Room Air 05/10 2050 82 180/100 05/10 2049 82 180/100 05/10 2049 82 180/100
[2017-05-11 14:57] VITALS: BP 154/86
[2017-05-11 15:50] VITALS: BP 166/100
[2017-05-11 22:34] VITALS: BP 187/106
[2017-05-12 05:49] VITALS: BP 168/100
[2017-05-12 08:50] LABS: ABSOLUTE BASOPHIL COUNT 0.1 /CUMM (0.0-0.2); ABSOLUTE EOSINOPHIL COUNT 0.6 /CUMM (0.0-0.7); ABSOLUTE GRANULOCYTE CT 5.5 /CUMM (1.4-6.5); ABSOLUTE LYMPH COUNT 1.8 /CUMM (1.2-3.4); ABSOLUTE MONOCYTE COUNT 0.7 /CUMM (0.10-0.60); BASOPHIL % 1.1 % (0.0-2.0); EOSINOPHIL % 6.9 % (0-5); GRANULOCYTE % 63.1 % (42.2-75.2); HEMATOCRIT 30.2 % (42-52); MEAN CORPUSCULAR HGB 29.5 PG (27.0-31.0); MEAN CORPUSCULAR HGB CONC 32.5 G/DL (33.0-37.0); MEAN CORPUSCULAR VOLUME 90.8 FL (80.0-94.0); PLATELET COUNT 349 /CUMM (130-400); RBC DISTRIBUTION WIDTH 17.5 % (11.5-14.5); RED BLOOD CELL CT 3.33 /CUMM (4.70-6.10); WHITE BLOOD CELL COUNT 8.7 /CUMM (4.8-10.8)
--- NOTE | 2017-05-12 12:13 | PN- Nephrology ---
Assessment/Plan Assessment: 1. End-stage renal disease. Next Dialysis will be on Sunday 2. BP- changes noted. Suspect that he is actually losing body mass. His ultrafiltration today will be 4.5 kg 3. His intradialytic weight gains are generous. Fortunately he is a rather generously proportioned in individual so that such intradialytic weight gains tolerated fairly well. This being said, suspect that his high blood pressure may be related to volume overload. Suggestion: 1. Continue with strict I's and O's and daily weights. 2. change EDW this will be challenged further today 3. His next dialysis will be on Sunday. Subjective Subjective: Patient seen at the end of dialysis. He looks well. 4.5 L or planned for today. Ultrafiltration Objective Vital Signs and I&Os Vital Signs Date Time Temp Pulse Resp B/P B/P Pulse O2 O2 Flow FiO2 Mean Ox Delivery Rate 05/12 0549 97.6 99 20 168/100 97 05/11 2234 98.6 89 18 187/106 97 Room Air 05/11 2112 87 187/106 05/11 211 86 187/106 05/11 211 87 187/106 05/11 1647 88 152/92 05/11 1550 98.9 81 20 166/100 96 Room Air 05/11 1457 98.3 90 18 154/86 95 Room Air Intake & Output 05/12 1600 05/12 0400 05/11 1600 05/11 0400 05/10 1600 05/10 0400 Intake Total 240 721 254 0461 500 Output Total 5000 Balance 240 950 350 -3920 500 Intake, Oral 240 006 579 5677 500 Output, 5000 Dialysate Patient 217 lb 217 lb 204 lb Weight Weight Bed scale Chair scale Measurement Method Physical Exam: General Appearance: well developed/nourished, no apparent distress, alert, awake Head: atraumatic, normal appearance Neck: normal inspection, supple, trachea mid line, no midline tenderness Respiratory: normal breath sounds, chest non-tender Cardiovascular: regular rate/rhythm, edema Abdomen: normal bowel sounds, soft, non-tender, no organomegaly Back: normal inspection, normal range of motion Extremities: normal inspection, no edema Neurologic/Psychiatric: no motor/sensory deficits, awake, alert Skin: intact, normal color Results Pertinent Lab Results: Laboratory Tests 05/12 05/10 UNK 1300 Chemistry Sodium (137 - 145 mmol/L) 138 Potassium (3.5 - 5.1 mmol/L) 5.8 H Chloride (98 - 107 mmol/L) 95 L Carbon Dioxide (22 - 30 mmol/L) 24 Anion Gap (5 - 16) 19 H BUN (9 - 20 mg/dL) 53 H 3 L Creatinine (0.7 - 1.2 mg/dL) 7.7 *H Estimated GFR (>60 ml/min) 7 L BUN/Creatinine Ratio (7 - 25 %) 6.9 L Calcium (8.4 - 10.2 mg/dL) 8.5 Hematology CBC w Diff NO MAN DIFF REQ WBC (4.8 - 10.8 /CUMM) 8.7 RBC (4.70 - 6.10 /CUMM) 3.33 L Hgb (14.0 - 18.0 G/DL) 9.8 L Hct (42 - 52 %) 30.2 L MCV (80.0 - 94.0 FL) 90.8 MCH (27.0 - 31.0 PG) 29.5 RDW (11.5 - 14.5 %) 17.5 H Plt Count (130 - 400 /CUMM) 349 MPV (7.4 - 10.4 FL) 7.0 L Gran % (42.2 - 75.2 %) 63.1 Lymphocytes % (20.5 - 51.1 %) 20.7 Monocytes % (1.7 - 9.3 %) 8.2 Eosinophils % (0 - 5 %) 6.9 H Basophils % (0.0 - 2.0 %) 1.1 Absolute Granulocytes (1.4 - 6.5 /CUMM) 5.5 Absolute Lymphocytes (1.2 - 3.4 /CUMM) 1.8 Absolute Monocytes (0.10 - 0.60 /CUMM) 0.7 H Absolute Eosinophils (0.0 - 0.7 /CUMM) 0.6 Absolute Basophils (0.0 - 0.2 /CUMM) 0.1 PUBS MCHC (33.0 - 37.0 G/DL) 32.5 L 05/10 0900 Chemistry Sodium (137 - 145 mmol/L) 143 Potassium (3.5 - 5.1 mmol/L) 5.3 H Chloride (98 - 107 mmol/L) 101 Carbon Dioxide (22 - 30 mmol/L) 23 Anion Gap (5 - 16) 19 H BUN (9 - 20 mg/dL) 48 H Creatinine (0.7 - 1.2 mg/dL) 8.2 *H Estimated GFR (>60 ml/min) 7 L BUN/Creatinine Ratio (7 - 25 %) 5.9 L Phosphorus (2.5 - 4.5 mg/dL) 3.4 Magnesium (1.6 - 2.3 mg/dL) 2.0 Albumin (3.5 - 5.0 g/dL) 3.9 Hematology CBC w Diff NO MAN DIFF REQ WBC (4.8 - 10.8 /CUMM) 8.1 RBC (4.70 - 6.10 /CUMM) 3.31 L Hgb (14.0 - 18.0 G/DL) 9.7 L Hct (42 - 52 %) 30.3 L MCV (80.0 - 94.0 FL) 91.5 MCH (27.0 - 31.0 PG) 29.3 RDW (11.5 - 14.5 %) 17.8 H Plt Count (130 - 400 /CUMM) 333 MPV (7.4 - 10.4 FL) 6.8 L Gran % (42.2 - 75.2 %) 67.0 Lymphocytes % (20.5 - 51.1 %) 17.4 L Monocytes % (1.7 - 9.3 %) 7.9 Eosinophils % (0 - 5 %) 6.7 H Basophils % (0.0 - 2.0 %) 1.0 Absolute Granulocytes (1.4 - 6.5 /CUMM) 5.4 Absolute Lymphocytes (1.2 - 3.4 /CUMM) 1.4 Absolute Monocytes (0.10 - 0.60 /CUMM) 0.6 Absolute Eosinophils (0.0 - 0.7 /CUMM) 0.5 Absolute Basophils (0.0 - 0.2 /CUMM) 0.1 PUBS MCHC (33.0 - 37.0 G/DL) 32.0 L
--- NOTE | 2017-05-12 13:10 | PN- Att Addend ---
Attending Addendum Attending Brief Note StableBP fluctuation noted Sleeping this am Intake & Output 05/12 1600 05/12 0800 05/12 0000 Intake Total 240 Output Total Balance 240 Intake, Oral 240 Patient 217 lb Weight Weight Bed scale Measurement Method Current Medications Sig/Grace Start time Last Medication Dose Route Stop Time Status Admin Acetaminophen 325 MG Q6-PRN PRN 04/09 2245 AC 05/11 PO 0637 Albuterol Sulfate 2 PUF Q4P PRN 04/09 2300 AC 05/07 INH 1621 Aripiprazole 400 MG Q30D 04/24 0900 AC 04/24 IM 1330 Aspirin Buffered 81 MG 0800 04/10 0800 AC 05/11 PO 0812 Atorvastatin Calcium 40 MG 1700 04/10 1700 AC 05/11 PO 164 Benztropine Mesylate 0.5 MG BID 04/10 1000 AC 05/11 PO 211 Cinacalcet 30 MG DAILY 04/10 1000 AC 05/11 PO 1057 Epoetin Florent[place] 8,000 UNIT TUES THURS SAT PRN 04/10 1500 AC 05/03 IV 1345 Furosemide 80 MG 0800,2200 04/10 0800 AC 05/11 PO 211 Gabapentin 300 MG AT BEDTIME 04/10 0215 AC 05/11 PO 211 Hydralazine HCl 20 MG TID 05/08 1100 AC 05/11 PO 211 Labetalol HCl 100 MG BID 04/10 1000 AC 05/11 PO 211 Lamotrigine 150 MG DAILY 04/22 1000 AC 05/11 PO 1056 Multivitamins 1 TAB 1000 04/10 1000 AC 05/11 PO 1057 Omeprazole 40 MG DAILY AC 04/20 1325 AC 05/12 PO 0519 Oxcarbazepine 600 MG BID 04/10 1000 AC 05/11 PO 211 Propranolol HCl 10 MG BID 04/10 1000 AC 05/11 PO 211 Quetiapine Fumarate 400 MG AT BEDTIME 04/10 0215 AC 05/11 PO 211 Sevelamer Carbonate 2,400 MG TIDAC 04/10 0800 AC 05/11 PO 164 Tiotropium [place] 1 PUF DAILY 04/10 1000 AC 05/11 INH 1057 Laboratory Tests 05/12 UNK Chemistry Sodium (137 - 145 mmol/L) 138 Potassium (3.5 - 5.1 mmol/L) 5.8 H Chloride (98 - 107 mmol/L) 95 L Carbon Dioxide (22 - 30 mmol/L) 24 Anion Gap (5 - 16) 19 H BUN (9 - 20 mg/dL) 53 H Creatinine (0.7 - 1.2 mg/dL) 7.7 *H Estimated GFR (>60 ml/min) 7 L BUN/Creatinine Ratio (7 - 25 %) 6.9 L Calcium (8.4 - 10.2 mg/dL) 8.5 Hematology CBC w Diff NO MAN DIFF REQ WBC (4.8 - 10.8 /CUMM) 8.7 RBC (4.70 - 6.10 /CUMM) 3.33 L Hgb (14.0 - 18.0 G/DL) 9.8 L Hct (42 - 52 %) 30.2 L MCV (80.0 - 94.0 FL) 90.8 MCH (27.0 - 31.0 PG) 29.5 RDW (11.5 - 14.5 %) 17.5 H Plt Count (130 - 400 /CUMM) 349 MPV (7.4 - 10.4 FL) 7.0 L Gran % (42.2 - 75.2 %) 63.1 Lymphocytes % (20.5 - 51.1 %) 20.7 Monocytes % (1.7 - 9.3 %) 8.2 Eosinophils % (0 - 5 %) 6.9 H Basophils % (0.0 - 2.0 %) 1.1 Absolute Granulocytes (1.4 - 6.5 /CUMM) 5.5 Absolute Lymphocytes (1.2 - 3.4 /CUMM) 1.8 Absolute Monocytes (0.10 - 0.60 /CUMM) 0.7 H Absolute Eosinophils (0.0 - 0.7 /CUMM) 0.6 Absolute Basophils (0.0 - 0.2 /CUMM) 0.1 PUBS MCHC (33.0 - 37.0 G/DL) 32.5 L Vital Signs Date Time Temp Pulse Resp B/P B/P Pulse O2 O2 Flow FiO2 Mean Ox Delivery Rate 05/12 0549 97.6 99 20 168/100 97 05/11 2234 98.6 89 18 187/106 97 Room Air 05/11 2112 87 187/106 05/11 2111 86 187/106 05/11 2111 87 187/106 05/11 1647 88 152/92 05/11 1550 98.9 81 20 166/100 96 Room Air 05/11 1457 98.3 90 18 154/86 95 Room Air 61 yo M active smoker with pmhx of ESRD on HD, HFrEF (EF 45-50%) HTN, HLD, bipolar disorder, asthma/COPD, and seizure history presented with dyspnea and acute blood loss anemia with guaiac positive stool. PT with ESRD now on dialysis Anemia s/p transfusion No sig ongoing bleed MBD on sensipar and sevelmer Bipolar on meds HFrEF on meds HLD stable H/o seizures stable no active seizure ETOH and cannabis use REcent manic episode REC cont dialysis Cont sitter per Psych Cont all meds Needs LTC Cannot leave ama Cont other meds Will follow
[2017-05-12 15:01] VITALS: BP 142/80
[2017-05-12 23:54] VITALS: BP 147/96
[2017-05-13 08:08] VITALS: BP 159/94
--- NOTE | 2017-05-13 13:34 | PN- Att Addend ---
Attending Addendum Attending Brief Note Stable Walking around Intake & Output 05/13 1600 05/13 0800 05/13 0000 Intake Total Output Total Balance Patient 213 lb Weight Weight Bed scale Measurement Method Current Medications Sig/Grace Start time Last Medication Dose Route Stop Time Status Admin Acetaminophen 325 MG Q6-PRN PRN 04/09 2245 AC 05/11 PO 0637 Albuterol Sulfate 2 PUF Q4P PRN 04/09 2300 AC 05/07 INH 1621 Aripiprazole 400 MG Q30D 04/24 0900 AC 04/24 IM 1330 Aspirin Buffered 81 MG 0800 04/10 0800 AC 05/13 PO 0759 Atorvastatin Calcium 40 MG 1700 04/10 1700 AC 05/12 PO 1841 Benztropine Mesylate 0.5 MG BID 04/10 1000 AC 05/13 PO 1154 Cinacalcet 30 MG DAILY 04/10 1000 AC 05/13 PO 1154 Epoetin Florentino 8,000 UNIT TUES THURS SAT PRN 04/10 1500 AC 05/03 IV 1345 Furosemide 80 MG 0800,0 04/10 0800 AC 05/13 PO 0759 Gabapentin 300 MG AT BEDTIME 04/10 0215 AC 05/12 PO 2234 Hydralazine HCl 20 MG TID 05/08 1100 AC 05/13 PO 1154 Labetalol HCl 100 MG BID 04/10 1000 AC 05/13 PO 1150 Lamotrigine 150 MG DAILY 04/22 1000 AC 05/13 PO 1151 Multivitamins 1 TAB 1000 04/10 1000 AC 05/13 PO 1151 Omeprazole 40 MG DAILY AC 04/20 1325 AC 05/13 PO 0600 Oxcarbazepine 600 MG BID 04/10 1000 AC 05/13 PO 1143 Propranolol HCl 10 MG BID 04/10 1000 AC 05/13 PO 1154 Quetiapine Fumarate 400 MG AT BEDTIME 04/10 0215 AC 05/12 PO 2233 Sevelamer Carbonate 2,400 MG TIDAC 04/10 0800 AC 05/13 PO 1142 Tiotropium [place] 1 PUF DAILY 04/10 1000 AC 05/13 INH 1155 Laboratory Tests 05/12 UNK Chemistry Sodium (137 - 145 mmol/L) 138 Potassium (3.5 - 5.1 mmol/L) 5.8 H Chloride (98 - 107 mmol/L) 95 L Carbon Dioxide (22 - 30 mmol/L) 24 Anion Gap (5 - 16) 19 H BUN (9 - 20 mg/dL) 53 H Creatinine (0.7 - 1.2 mg/dL) 7.7 *H Estimated GFR (>60 ml/min) 7 L BUN/Creatinine Ratio (7 - 25 %) 6.9 L Calcium (8.4 - 10.2 mg/dL) 8.5 Hematology CBC w Diff NO MAN DIFF REQ WBC (4.8 - 10.8 /CUMM) 8.7 RBC (4.70 - 6.10 /CUMM) 3.33 L Hgb (14.0 - 18.0 G/DL) 9.8 L Hct (42 - 52 %) 30.2 L MCV (80.0 - 94.0 FL) 90.8 MCH (27.0 - 31.0 PG) 29.5 RDW (11.5 - 14.5 %) 17.5 H Plt Count (130 - 400 /CUMM) 349 MPV (7.4 - 10.4 FL) 7.0 L Gran % (42.2 - 75.2 %) 63.1 Lymphocytes % (20.5 - 51.1 %) 20.7 Monocytes % (1.7 - 9.3 %) 8.2 Eosinophils % (0 - 5 %) 6.9 H Basophils % (0.0 - 2.0 %) 1.1 Absolute Granulocytes (1.4 - 6.5 /CUMM) 5.5 Absolute Lymphocytes (1.2 - 3.4 /CUMM) 1.8 Absolute Monocytes (0.10 - 0.60 /CUMM) 0.7 H Absolute Eosinophils (0.0 - 0.7 /CUMM) 0.6 Absolute Basophils (0.0 - 0.2 /CUMM) 0.1 PUBS MCHC (33.0 - 37.0 G/DL) 32.5 L Vital Signs Date Time Temp Pulse Resp B/P B/P Pulse O2 O2 Flow FiO2 Mean Ox Delivery Rate 05/13 1150 96 166/100 05/13 0808 97.6 79 18 159/94 98 Room Air 05/12 2354 98.5 87 18 147/96 98 Room Air 05/12 2236 86 147/96 05/12 1841 76 158/76 05/12 1501 98.2 87 20 142/80 97 Room Air 05/12 1404 82 156/90 61 yo M active smoker with pmhx of ESRD on HD, HFrEF (EF 45-50%) HTN, HLD, bipolar disorder, asthma/COPD, and seizure history presented with dyspnea and acute blood loss anemia with guaiac positive stool. PT with ESRD now on dialysis Anemia s/p transfusion No sig ongoing bleed MBD on sensipar and sevelmer Bipolar on meds HFrEF on meds HLD stable H/o seizures stable no active seizure ETOH and cannabis use REcent manic episode REC cont dialysis Cont sitter per Psych Cont all meds Needs LTC Cannot leave ama Cont other meds Will follow
[2017-05-13 15:14] VITALS: BP 142/80
[2017-05-14 05:53] VITALS: BP 142/80
--- NOTE | 2017-05-14 13:49 | PN- Att Addend ---
Attending Addendum Attending Brief Note Stable no new issues Intake & Output 05/14 1600 05/14 0800 05/14 0000 Intake Total 480 480 Output Total Balance 480 480 Intake, Oral 480 480 Patient 207 lb Weight Current Medications Sig/Grace Start time Last Medication Dose Route Stop Time Status Admin Acetaminophen 325 MG Q6-PRN PRN 04/09 2245 AC 05/11 PO 0637 Albuterol Sulfate 2 PUF Q4P PRN 04/09 2300 AC 05/07 INH 1621 Aripiprazole 400 MG Q30D 04/24 0900 AC 04/24 IM 1330 Aspirin Buffered 81 MG 0800 04/10 0800 AC 05/14 PO 1013 Atorvastatin Calcium 40 MG 1700 04/10 1700 AC 05/13 PO 1759 Benztropine Mesylate 0.5 MG BID 04/10 1000 AC 05/14 PO 1013 Cinacalcet 30 MG DAILY 04/10 1000 AC 05/14 PO 1014 Epoetin Florentino 8,000 UNIT TUES THURS SAT PRN 04/10 1500 AC 05/03 IV 1345 Furosemide 80 MG 0800,0 04/10 0800 AC 05/14 PO 1014 Gabapentin 300 MG AT BEDTIME 04/10 0215 AC 05/13 PO 2204 Hydralazine HCl 20 MG TID 05/08 1100 AC 05/14 PO 1014 Labetalol HCl 100 MG BID 04/10 1000 AC 05/14 PO 1014 Lamotrigine 150 MG DAILY 04/22 1000 AC 05/14 PO 1015 Multivitamins 1 TAB 1000 04/10 1000 AC 05/14 PO 1013 Omeprazole 40 MG DAILY AC 04/20 1325 AC 05/14 PO 0450 Oxcarbazepine 600 MG BID 04/10 1000 AC 05/14 PO 1014 Propranolol HCl 10 MG BID 04/10 1000 AC 05/14 PO 1013 Quetiapine Fumarate 400 MG AT BEDTIME 04/10 0215 AC 05/13 PO 2203 Sevelamer Carbonate 2,400 MG TIDAC 04/10 0800 AC 05/14 PO 1211 Tiotropium [place] 1 PUF DAILY 04/10 1000 AC 05/14 INH 1013 Vital Signs Date Time Temp Pulse Resp B/P B/P Pulse O2 O2 Flow FiO2 Mean Ox Delivery Rate 05/14 0553 98.4 84 20 142/80 97 Room Air 05/138 98.5 82 20 95 Room Air 05/13 2205 168/100 05/13 2204 168/100 05/13 1801 84 152/98 05/13 1514 98.3 78 20 142/80 97 Room Air 61 yo M active smoker with pmhx of ESRD on HD, HFrEF (EF 45-50%) HTN, HLD, bipolar disorder, asthma/COPD, and seizure history presented with dyspnea and acute blood loss anemia with guaiac positive stool. PT with ESRD now on dialysis Anemia s/p transfusion No sig ongoing bleed MBD on sensipar and sevelmer Bipolar on meds HFrEF on meds HLD stable H/o seizures stable no active seizure ETOH and cannabis use REcent manic episode REC cont dialysis Cont sitter per Psych Cont all meds Needs LTC Cannot leave ama Cont other meds Will follow
[2017-05-14 13:50] VITALS: BP 140/90
[2017-05-14 21:19] VITALS: BP 172/98
[2017-05-15 07:05] VITALS: BP 125/72
[2017-05-15 09:39] LABS: ABSOLUTE BASOPHIL COUNT 0.1 /CUMM (0.0-0.2); ABSOLUTE EOSINOPHIL COUNT 0.5 /CUMM (0.0-0.7); ABSOLUTE GRANULOCYTE CT 6.3 /CUMM (1.4-6.5); ABSOLUTE LYMPH COUNT 1.5 /CUMM (1.2-3.4); ABSOLUTE MONOCYTE COUNT 0.4 /CUMM (0.10-0.60); BASOPHIL % 0.8 % (0.0-2.0); GRANULOCYTE % 71.7 % (42.2-75.2); HEMATOCRIT 32.1 % (42-52); MEAN CORPUSCULAR HGB 29.7 PG (27.0-31.0); MEAN CORPUSCULAR HGB CONC 32.6 G/DL (33.0-37.0); MEAN PLATELET VOLUME 7.4 FL (7.4-10.4); PLATELET COUNT 382 /CUMM (130-400); RBC DISTRIBUTION WIDTH 17.1 % (11.5-14.5); RED BLOOD CELL CT 3.52 /CUMM (4.70-6.10); WHITE BLOOD CELL COUNT 8.8 /CUMM (4.8-10.8)
--- NOTE | 2017-05-15 10:02 | PN- Nephrology ---
See Addendum Assessment/Plan Assessment: ESRD - Routine HD today. Has lost body mass since being admitted. Will need to change EDW to 96kg. No s/s of fluid overload on exam. Anemia - GI Bleed - Hg stable and at goal on current dose of Epogen. HTN - Somewhat labile. Controlled this AM. MBD - On sensipar and Sevelamer - parameters reasonable. Hyperkalemia - Need to adhere to low K diet. Suggestion: -HD today to new EDW of 96.0kg -Cont TIW Epogen -Cont current BP regimen -Cont cinacalcet and renevela -Check PTH -Low K diet Please call [phone] with ?'s Subjective Subjective: Pt without somatic complaints Awaiting dispo Objective Vital Signs and I&Os Vital Signs Date Time Temp Pulse Resp B/P B/P Pulse O2 O2 Flow FiO2 Mean Ox Delivery Rate 05/15 704 98.6 80 18 125/72 95 05/14 214 172/98 05/14 2140 172/98 05/14 2138 172/98 05/14 2118 98.0 89 19 172/98 97 Room Air 05/14 1350 98.4 90 20 140/90 96 Room Air Intake & Output 05/15 1600 05/15 0400 05/14 1600 05/14 0400 05/13 1600 05/13 0400 Intake Total 480 1130 480 600 Output Total Balance 480 1130 480 600 Intake, Oral 480 1130 480 600 Patient 209 lb 207 lb 213 lb Weight Weight Bed scale Measurement Method Physical Exam: Gen - OK appearing HEENT - supple CV - RRR, no m/r/g Chest - clear, no w/r/r Abd - soft, NTND Ext - no edema Neuro - AOX3, grossly nonfocal Access - LUE AVF +bruit Current Medications: Current Medications Sig/Grace Start time Last Medication Dose Route Stop Time Status Admin Acetaminophen 325 MG Q6-PRN PRN 04/09 2245 AC 05/11 PO 0637 Albuterol Sulfate 2 PUF Q4P PRN 04/09 2300 AC 05/07 INH 1621 Aripiprazole 400 MG Q30D 04/24 0900 AC 04/24 IM 1330 Aspirin Buffered 81 MG 0804/10 0800 AC 05/14 PO 1013 Atorvastatin Calcium 40 MG 1700 04/10 1700 AC 05/14 PO 1718 Benztropine Mesylate 0.5 MG BID 04/10 1000 AC 05/14 PO 2141 Cinacalcet 30 MG DAILY 04/10 1000 AC 05/14 PO 1014 Epoetin [place] 8,000 UNIT TUES THURS SAT PRN 04/10 1500 AC 05/03 IV 1345 Furosemide 80 MG 0800,2200 04/10 0800 AC 05/14 PO 2141 Gabapentin 300 MG AT BEDTIME 04/10 0215 AC 05/14 PO 2141 Hydralazine HCl 20 MG TID 05/08 1100 AC 05/14 PO 2139 Labetalol HCl 100 MG BID 04/10 1000 AC 05/14 PO 2141 Lamotrigine 150 MG DAILY 04/22 1000 AC 05/14 PO 1015 Multivitamins 1 TAB 1000 04/10 1000 AC 05/14 PO 1013 Omeprazole 40 MG DAILY AC 04/20 1325 AC 05/15 PO 0525 Oxcarbazepine 600 MG BID 04/10 1000 AC 05/14 PO 2140 Propranolol HCl 10 MG BID 04/10 1000 AC 05/14 PO 2141 Quetiapine Fumarate 400 MG AT BEDTIME 04/10 0215 AC 05/14 PO 2140 Sevelamer Carbonate 2,400 MG TIDAC 04/10 0800 AC 05/14 PO 1718 Tiotropium [place] 1 PUF DAILY 04/10 1000 AC 05/14 INH 1013 Results Pertinent Lab Results: Laboratory Tests 05/12 UNK Chemistry Sodium (137 - 145 mmol/L) 138 Potassium (3.5 - 5.1 mmol/L) 5.8 H Chloride (98 - 107 mmol/L) 95 L Carbon Dioxide (22 - 30 mmol/L) 24 Anion Gap (5 - 16) 19 H BUN (9 - 20 mg/dL) 53 H Creatinine (0.7 - 1.2 mg/dL) 7.7 *H Estimated GFR (>60 ml/min) 7 L BUN/Creatinine Ratio (7 - 25 %) 6.9 L Calcium (8.4 - 10.2 mg/dL) 8.5 Hematology CBC w Diff NO MAN DIFF REQ WBC (4.8 - 10.8 /CUMM) 8.7 RBC (4.70 - 6.10 /CUMM) 3.33 L Hgb (14.0 - 18.0 G/DL) 9.8 L Hct (42 - 52 %) 30.2 L MCV (80.0 - 94.0 FL) 90.8 MCH (27.0 - 31.0 PG) 29.5 RDW (11.5 - 14.5 %) 17.5 H Plt Count (130 - 400 /CUMM) 349 MPV (7.4 - 10.4 FL) 7.0 L Gran % (42.2 - 75.2 %) 63.1 Lymphocytes % (20.5 - 51.1 %) 20.7 Monocytes % (1.7 - 9.3 %) 8.2 Eosinophils % (0 - 5 %) 6.9 H Basophils % (0.0 - 2.0 %) 1.1 Absolute Granulocytes (1.4 - 6.5 /CUMM) 5.5 Absolute Lymphocytes (1.2 - 3.4 /CUMM) 1.8 Absolute Monocytes (0.10 - 0.60 /CUMM) 0.7 H Absolute Eosinophils (0.0 - 0.7 /CUMM) 0.6 Absolute Basophils (0.0 - 0.2 /CUMM) 0.1 PUBS MCHC (33.0 - 37.0 G/DL) 32.5 L
--- NOTE | 2017-05-15 13:17 | PN- Att Addend ---
Attending Addendum Attending Brief Note No new issues. Having hemodialysis today Vital signs are stable with blood pressure still fluctuating up and down. No new changes on physical. Disposition plans continue. Intake & Output 05/15 1600 05/15 0400 05/14 1600 05/14 0400 05/13 1600 05/13 0400 Intake Total 480 1130 480 600 Output Total Balance 480 1130 480 600 Intake, Oral 480 1130 480 600 Patient 209 lb 207 lb 213 lb Weight Weight Bed scale Measurement Method Current Medications Sig/Grace Start time Last Medication Dose Route Stop Time Status Admin Acetaminophen 325 MG Q6-PRN PRN 04/09 2245 AC 05/11 PO 0637 Albuterol Sulfate 2 PUF Q4P PRN 04/09 2300 AC 05/07 INH 1621 Aripiprazole 400 MG Q30D 04/24 0900 AC 04/24 IM 1330 Aspirin Buffered 81 MG 0800 04/10 0800 AC 05/14 PO 1013 Atorvastatin Calcium 40 MG 1700 04/10 1700 AC 05/14 PO 1718 Benztropine Mesylate 0.5 MG BID 04/10 1000 AC 05/14 PO 2141 Cinacalcet 30 MG DAILY 04/10 1000 AC 05/14 PO 1014 Epoetin [place] 8,000 UNIT TUES THURS SAT PRN 04/10 1500 AC 05/03 IV 1345 Furosemide 80 MG 0800,2200 04/10 0800 AC 05/14 PO 2141 Gabapentin 300 MG AT BEDTIME 04/10 0215 AC 05/14 PO 2141 Hydralazine HCl 20 MG TID 05/08 1100 AC 05/14 PO 2139 Labetalol HCl 100 MG BID 04/10 1000 AC 05/14 PO 2141 Lamotrigine 150 MG DAILY 04/22 1000 AC 05/14 PO 1015 Multivitamins 1 TAB 1000 04/10 1000 AC 05/14 PO 1013 Omeprazole 40 MG DAILY AC 04/20 1325 AC 05/15 PO 0525 Oxcarbazepine 600 MG BID 04/10 1000 AC 05/14 PO 2140 Propranolol HCl 10 MG BID 04/10 1000 AC 05/14 PO 2141 Quetiapine Fumarate 400 MG AT BEDTIME 04/10 0215 AC 05/14 PO 2140 Sevelamer Carbonate 2,400 MG TIDAC 04/10 0800 AC 05/14 PO 1718 Tiotropium [place] 1 PUF DAILY 04/10 1000 AC 05/14 INH 1013 Laboratory Tests 05/15/17 1015: PTH Intact 709.3 H 05/15/17 1000: Anion Gap 21 H, Estimated GFR 6 L, BUN/Creatinine Ratio 7.8, CBC w Diff NO MAN DIFF REQ, RBC 3.52 L, MCV 91.0, MCH 29.7, RDW 17.1 H, MPV 7.4, Gran % 71.7, Lymphocytes % 17.2 L, Monocytes % 4.3, Eosinophils % 6.0 H, Basophils % 0.8, Absolute Granulocytes 6.3, Absolute Lymphocytes 1.5, Absolute Monocytes 0.4, Absolute Eosinophils 0.5, Absolute Basophils 0.1, PUBS MCHC 32.6 L, Hep Bs Antigen NONREACTIVE, Hep Bs Antibody NONREACTIVE Vital Signs Date Time Temp Pulse Resp B/P B/P Pulse O2 O2 Flow FiO2 Mean Ox Delivery Rate 05/15 0705 98.6 80 18 125/72 95 05/14 2140 172/98 05/14 2140 172/98 05/14 2138 172/98 05/14 2118 98.0 89 19 172/98 97 Room Air 05/14 1350 98.4 90 20 140/90 96 Room Air
[2017-05-15 15:18] VITALS: BP 160/94
[2017-05-15 22:18] VITALS: BP 132/88
[2017-05-16 05:55] VITALS: BP 134/70
--- NOTE | 2017-05-16 13:04 | PN- Att Addend ---
Attending Addendum Attending Brief Note No new complaints sitting comfortably in the chair keeping busy putting together more little ship' Vital signs are stable afebrile, no new changes on physical. Continue present treatment and hemodialysis treatment times a week and continue disposition plans. Intake & Output 05/16 1600 05/16 0400 05/15 1600 05/15 0400 05/14 1600 05/14 0400 Intake Total 240 480 895 628 7811 480 Output Total Balance 240 480 860 188 6984 480 Intake, Oral 240 480 727 877 8140 480 Number 1 Bowel Movements Patient 209 lb 209 lb 207 lb Weight Current Medications Sig/Grace Start time Last Medication Dose Route Stop Time Status Admin Acetaminophen 325 MG .STK-MED ONE 05/15 1353 DC PO 05/15 1354 Acetaminophen 325 MG Q6-PRN PRN 04/09 2245 AC 05/16 PO 1156 Albuterol Sulfate 2 PUF Q4P PRN 04/09 2300 AC 05/07 INH 1621 Aripiprazole 400 MG Q30D 04/24 0900 AC 04/24 IM 1330 Aspirin Buffered 81 MG 0800 04/10 0800 AC 05/16 PO 0956 Atorvastatin Calcium 40 MG 1700 12 1700 AC 05/15 PO 1610 Benztropine Mesylate 0.5 MG BID 04/10 1000 AC 05/16 PO 0953 Cinacalcet 30 MG DAILY 04/10 1000 AC 05/16 PO 0958 Epoetin [place] 8,000 UNIT TUES THURS SAT PRN 04/10 1500 AC 05/03 IV 1345 Furosemide 80 MG 0800,2200 04/10 0800 AC 05/16 PO 0952 Gabapentin 300 MG AT BEDTIME 04/10 0215 AC 05/15 PO 2220 Hydralazine HCl 20 MG TID 05/08 1100 AC 05/16 PO 0956 Labetalol HCl 100 MG BID 04/10 1000 AC 05/16 PO 0958 Lamotrigine 150 MG DAILY 04/22 1000 AC 05/16 PO 0954 Multivitamins 1 TAB 1000 04/10 1000 AC 05/16 PO 0957 Omeprazole 40 MG DAILY AC 04/20 1325 AC 05/16 PO 0510 Oxcarbazepine 600 MG BID 04/10 1000 AC 05/16 PO 0951 Patient Medication 1 ED ONE ONE 05/16 1200 DC 05/16 Teaching ED 05/16 1201 1157 Propranolol HCl 10 MG BID 04/10 1000 AC 05/16 PO 0957 Quetiapine Fumarate 400 MG AT BEDTIME 04/10 0215 AC 05/15 PO 2219 Sevelamer Carbonate 2,400 MG TIDAC 04/10 0800 AC 05/16 PO 1150 Tiotropium [place] 1 PUF DAILY 04/10 1000 AC 05/16 INH 1150 Laboratory Tests 05/15/17 1015: PTH Intact 709.3 H 05/15/17 1000: Anion Gap 21 H, Estimated GFR 6 L, BUN/Creatinine Ratio 7.8, CBC w Diff NO MAN DIFF REQ, RBC 3.52 L, MCV 91.0, MCH 29.7, RDW 17.1 H, MPV 7.4, Gran % 71.7, Lymphocytes % 17.2 L, Monocytes % 4.3, Eosinophils % 6.0 H, Basophils % 0.8, Absolute Granulocytes 6.3, Absolute Lymphocytes 1.5, Absolute Monocytes 0.4, Absolute Eosinophils 0.5, Absolute Basophils 0.1, PUBS MCHC 32.6 L, Hep Bs Antigen NONREACTIVE, Hep Bs Antibody NONREACTIVE Vital Signs Date Time Temp Pulse Resp B/P B/P Pulse O2 O2 Flow FiO2 Mean Ox Delivery Rate 05/16 0958 77 134/70 05/16 0957 77 134/70 05/16 0956 77 134/70 05/16 0555 97.7 77 20 134/70 94 05/15 2221 79 132/88 05/15 2220 79 132/88 05/15 2219 79 132/88 05/15 2218 98.7 79 20 132/88 96 05/15 1611 90 160/94 05/15 1518 98.2 90 20 160/94 97 Room Air 05/15 1403 78 146/84 05/15 1400 78 146/84 05/15 1359 78 146/84
[2017-05-16 14:49] VITALS: BP 140/82
[2017-05-16 22:58] VITALS: BP 154/97
[2017-05-17 07:27] VITALS: BP 137/84
--- NOTE | 2017-05-17 12:52 | PN- Nephrology ---
Assessment/Plan Assessment: ESRD - Routine HD today. Has lost body mass since being admitted. EDW changed to 96kg. No s/s of fluid overload on exam. Anemia - GI Bleed - Hg stable and at goal on current dose of Epogen. HTN - Under reasonable control. 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 Need to increase cinacalcet. Hyperkalemia - Need to adhere to low K diet. Suggestion: -HD today - UF to EDW 96kg -Cont TIW Epogen -Cont current BP regimen -Increase cinacalcet to 60mg daily -Cont renvela -Low K diet Please call [phone] with ?'s Subjective Subjective: Pt without complaints Objective Vital Signs and I&Os Vital Signs Date Time Temp Pulse Resp B/P B/P Pulse O2 O2 Flow FiO2 Mean Ox Delivery Rate 05/17 0727 97.4 72 18 137/84 98 Room Air 05/16 2258 97.9 81 18 154/97 93 Room Air 05/16 2220 81 154/97 05/16 2220 81 154/97 05/16 2219 81 154/97 05/16 1610 85 140/82 05/16 1449 97.8 85 20 140/82 97 Room Air Intake & Output 05/17 1600 05/17 0400 05/16 1600 05/16 0400 05/15 1600 05/15 0400 Intake Total 240 240 640 480 320 480 Output Total Balance 240 240 640 480 320 480 Intake, Oral 240 240 640 480 320 480 Number 1 1 Bowel Movements Patient 186 lb 209 lb 209 lb Weight Weight Bed scale Measurement Method Physical Exam: Gen - OK appearing HEENT - supple CV - RRR, no m/r/g Chest - clear, no w/r/r Abd - soft, NTND Ext - no edema Neuro - AOX3, grossly nonfocal Access - LUE AVF +bruit Current Medications: Current Medications Sig/Grace Start time Last Medication Dose Route Stop Time Status Admin Acetaminophen 325 MG .STK-MED ONE 05/16 2235 DC PO 05/16 2236 Acetaminophen 325 MG Q6-PRN PRN 04/09 2245 AC 05/16 PO 223 Albuterol Sulfate 2 PUF Q4P PRN 04/09 2300 AC 05/07 INH 1621 Aripiprazole 400 MG Q30D 04/24 0900 AC 04/24 IM 1330 Aspirin Buffered 81 MG 0800 04/10 0800 AC 05/16 PO 0956 Atorvastatin Calcium 40 MG 1700 04/10 1700 AC 05/16 PO 1608 Benztropine Mesylate 0.5 MG BID 04/10 1000 AC 05/16 PO 2219 Cinacalcet 30 MG DAILY 04/10 1000 AC 05/16 PO 0958 Epoetin [place] 8,000 UNIT TUES THURS SAT PRN 04/10 1500 AC 05/03 IV 1345 Furosemide 80 MG 0800,0 04/10 0800 AC 05/16 PO 2220 Gabapentin 300 MG AT BEDTIME 04/10 0215 AC 05/16 PO 2219 Hydralazine HCl 20 MG TID 05/08 1100 AC 05/16 PO 2220 Labetalol HCl 100 MG BID 04/10 1000 AC 05/16 PO 2220 Lamotrigine 150 MG DAILY 04/22 1000 AC 05/16 PO 0954 Multivitamins 1 TAB 1000 04/10 1000 AC 05/16 PO 0957 Omeprazole 40 MG DAILY AC 04/20 1325 AC 05/17 PO 0547 Oxcarbazepine 600 MG BID 04/10 1000 AC 05/16 PO 2221 Propranolol HCl 10 MG BID 04/10 1000 AC 05/16 PO 2219 Quetiapine Fumarate 400 MG AT BEDTIME 04/10 0215 AC 05/16 PO 2220 Sevelamer Carbonate 2,400 MG TIDAC 04/10 0800 AC 05/16 PO 1610 Tiotropium [place] 1 PUF DAILY 04/10 1000 AC 05/16 INH 1150 Results Pertinent Lab Results: Laboratory Tests 05/15 05/15 1015 UNK Chemistry Sodium (137 - 145 mmol/L) 140 Potassium (3.5 - 5.1 mmol/L) 5.7 H Chloride (98 - 107 mmol/L) 97 L Carbon Dioxide (22 - 30 mmol/L) 22 Anion Gap (5 - 16) 21 H BUN (9 - 20 mg/dL) 76 H Creatinine (0.7 - 1.2 mg/dL) 9.7 *H Estimated GFR (>60 ml/min) 6 L BUN/Creatinine Ratio (7 - 25 %) 7.8 PTH Intact (18.4 - 80.1 pg/ML) 709.3 H Hematology CBC w Diff NO MAN DIFF REQ WBC (4.8 - 10.8 /CUMM) 8.8 RBC (4.70 - 6.10 /CUMM) 3.52 L Hgb (14.0 - 18.0 G/DL) 10.5 L Hct (42 - 52 %) 32.1 L MCV (80.0 - 94.0 FL) 91.0 MCH (27.0 - 31.0 PG) 29.7 RDW (11.5 - 14.5 %) 17.1 H Plt Count (130 - 400 /CUMM) 382 MPV (7.4 - 10.4 FL) 7.4 Gran % (42.2 - 75.2 %) 71.7 Lymphocytes % (20.5 - 51.1 %) 17.2 L Monocytes % (1.7 - 9.3 %) 4.3 Eosinophils % (0 - 5 %) 6.0 H Basophils % (0.0 - 2.0 %) 0.8 Absolute Granulocytes (1.4 - 6.5 /CUMM) 6.3 Absolute Lymphocytes (1.2 - 3.4 /CUMM) 1.5 Absolute Monocytes (0.10 - 0.60 /CUMM) 0.4 Absolute Eosinophils (0.0 - 0.7 /CUMM) 0.5 Absolute Basophils (0.0 - 0.2 /CUMM) 0.1 PUBS MCHC (33.0 - 37.0 G/DL) 32.6 L Serology Hep Bs Antigen (NONREACTIVE) NONREACTIVE Hep Bs Antibody (NONREACTIVE) NONREACTIVE
--- NOTE | 2017-05-17 13:19 | PN- Att Addend ---
Attending Addendum Attending Brief Note No new issues patient comfortable in no chest pain or shortness of breath with his vital signs are stable, no changes on physical. His hemodialysis continues 3 times a week disposition plans continue still looking for an appropriate place for the patient to go and be safe. Intake & Output 05/17 1600 05/17 0400 05/16 1600 05/16 0400 05/15 1600 05/15 0400 Intake Total 240 240 640 480 320 480 Output Total Balance 240 240 640 480 320 480 Intake, Oral 240 240 640 480 320 480 Number 1 1 Bowel Movements Patient 186 lb 209 lb 209 lb Weight Weight Bed scale Measurement Method Current Medications Sig/Grace Start time Last Medication Dose Route Stop Time Status Admin Acetaminophen 325 MG .STK-MED ONE 05/16 2235 DC PO 05/16 223 Acetaminophen 325 MG Q6-PRN PRN 04/09 2245 AC 05/16 PO 2238 Albuterol Sulfate 2 PUF Q4P PRN 04/09 2300 AC 05/07 INH 1621 Aripiprazole 400 MG Q30D 04/24 0900 AC 04/24 IM 1330 Aspirin Buffered 81 MG 0800 04/10 0800 AC 05/16 PO 0956 Atorvastatin Calcium 40 MG 1700 04/10 1700 AC 05/16 PO 1608 Benztropine Mesylate 0.5 MG BID 04/10 1000 AC 05/16 PO 2219 Cinacalcet 60 MG DAILY 05/18 1000 AC PO Cinacalcet 30 MG DAILY 04/10 1000 DC 05/16 PO 0958 Epoetin [place] 8,000 UNIT TUES THURS SAT PRN 04/10 1500 AC 05/03 IV 1345 Furosemide 80 MG 0800,2200 04/10 0800 AC 05/16 PO 2220 Gabapentin 300 MG AT BEDTIME 04/10 0215 AC 05/16 PO 2219 Hydralazine HCl 20 MG TID 05/08 1100 AC 05/16 PO 2220 Labetalol HCl 100 MG BID 04/10 1000 AC 05/16 PO 2220 Lamotrigine 150 MG DAILY 04/22 1000 AC 05/16 PO 0954 Multivitamins 1 TAB 1000 04/10 1000 AC 05/16 PO 0957 Omeprazole 40 MG DAILY AC 04/20 1325 AC 05/17 PO 0547 Oxcarbazepine 600 MG BID 04/10 1000 AC 05/16 PO 2221 Propranolol HCl 10 MG BID 04/10 1000 AC 05/16 PO 2219 Quetiapine Fumarate 400 MG AT BEDTIME 04/10 0215 AC 05/16 PO 2220 Sevelamer Carbonate 2,400 MG TIDAC 04/10 0800 AC 05/16 PO 1610 Tiotropium [place] 1 PUF DAILY 04/10 1000 AC 05/16 INH 1150 Laboratory Tests 05/15/17 1015: PTH Intact 709.3 H 05/15/17 1000: Anion Gap 21 H, Estimated GFR 6 L, BUN/Creatinine Ratio 7.8, CBC w Diff NO MAN DIFF REQ, RBC 3.52 L, MCV 91.0, MCH 29.7, RDW 17.1 H, MPV 7.4, Gran % 71.7, Lymphocytes % 17.2 L, Monocytes % 4.3, Eosinophils % 6.0 H, Basophils % 0.8, Absolute Granulocytes 6.3, Absolute Lymphocytes 1.5, Absolute Monocytes 0.4, Absolute Eosinophils 0.5, Absolute Basophils 0.1, PUBS MCHC 32.6 L, Hep Bs Antigen NONREACTIVE, Hep Bs Antibody NONREACTIVE Vital Signs Date Time Temp Pulse Resp B/P B/P Pulse O2 O2 Flow FiO2 Mean Ox Delivery Rate 05/17 0727 97.4 72 18 137/84 98 Room Air 05/16 2258 97.9 81 18 154/97 93 Room Air 05/16 2220 81 154/97 05/16 2220 81 154/97 05/16 2219 81 154/97 05/16 1610 85 140/82 05/16 1449 97.8 85 20 140/82 97 Room Air
[2017-05-17 14:51] LABS: ABSOLUTE BASOPHIL COUNT 0.1 /CUMM (0.0-0.2); ABSOLUTE EOSINOPHIL COUNT 0.4 /CUMM (0.0-0.7); ABSOLUTE GRANULOCYTE CT 6.9 /CUMM (1.4-6.5); ABSOLUTE LYMPH COUNT 1.7 /CUMM (1.2-3.4); ABSOLUTE MONOCYTE COUNT 0.6 /CUMM (0.10-0.60); BASOPHIL % 0.7 % (0.0-2.0); EOSINOPHIL % 4.5 % (0-5); GRANULOCYTE % 70.9 % (42.2-75.2); HEMATOCRIT 32.2 % (42-52); MEAN CORPUSCULAR HGB 29.6 PG (27.0-31.0); MEAN CORPUSCULAR HGB CONC 32.4 G/DL (33.0-37.0); MEAN CORPUSCULAR VOLUME 91.3 FL (80.0-94.0); MEAN PLATELET VOLUME 7.2 FL (7.4-10.4); PLATELET COUNT 369 /CUMM (130-400); RBC DISTRIBUTION WIDTH 17.3 % (11.5-14.5); RED BLOOD CELL CT 3.52 /CUMM (4.70-6.10); WHITE BLOOD CELL COUNT 9.7 /CUMM (4.8-10.8)
[2017-05-17 19:03] VITALS: BP 144/90
[2017-05-17 22:26] VITALS: BP 170/98
[2017-05-18 06:09] VITALS: BP 112/60
--- NOTE | 2017-05-18 11:11 | PN- Att Addend ---
Attending Addendum Attending Brief Note No new issues, vital signs are stable no fever changes on physical. Hemodialysis continues treat times a week, disposition plans still in progress insurance issues to be resolved before able to go to the facility. Intake & Output 05/18 1600 05/18 0400 05/17 1600 05/17 0400 05/16 1600 05/16 0400 Intake Total 240 240 890 240 640 480 Output Total Balance 240 240 890 240 640 480 Intake, IV 0 0 Intake, Oral 240 240 890 240 640 480 Number 0 0 1 Bowel Movements Patient 209 lb 211 lb 186 lb 209 lb Weight Weight Bed scale Bed scale Measurement Method Current Medications Sig/Grace Start time Last Medication Dose Route Stop Time Status Admin Acetaminophen 325 MG Q6-PRN PRN 04/09 2245 AC 05/16 PO 2238 Albuterol Sulfate 2 PUF Q4P PRN 04/09 2300 AC 05/17 INH 2003 Aripiprazole 400 MG Q30D 04/24 0900 AC 04/24 IM 1330 Aspirin Buffered 81 MG 0800 04/10 0800 AC 05/18 PO 0837 Atorvastatin Calcium 40 MG 1700 04/10 1700 AC 05/17 PO 1903 Benztropine Mesylate 0.5 MG BID 04/10 1000 AC 05/18 PO 1050 Cinacalcet 60 MG DAILY 05/18 1000 AC 05/18 PO 1050 Cinacalcet 30 MG DAILY 04/10 1000 DC 05/17 PO 1905 Epoetin [place] 8,000 UNIT TUES THURS SAT PRN 04/10 1500 AC 05/03 IV 1345 Furosemide 80 MG 0800,2200 04/10 0800 AC 05/18 PO 0837 Gabapentin 300 MG AT BEDTIME 04/10 0215 AC 05/17 PO 2213 Hydralazine HCl 20 MG TID 05/08 1100 AC 05/18 PO 1049 Labetalol HCl 100 MG BID 04/10 1000 AC 05/18 PO 1050 Lamotrigine 150 MG DAILY 04/22 1000 AC 05/18 PO 1050 Multivitamins 1 TAB 1000 04/10 1000 AC 05/18 PO 1050 Omeprazole 40 MG DAILY AC 04/20 1325 AC 05/18 PO 0538 Oxcarbazepine 600 MG BID 04/10 1000 AC 05/18 PO 1050 Propranolol HCl 10 MG BID 04/10 1000 AC 05/18 PO 1050 Quetiapine Fumarate 400 MG AT BEDTIME 04/10 0215 AC 05/17 PO 2213 Sevelamer Carbonate 2,400 MG TIDAC 04/10 0800 AC 05/18 PO 1100 Tiotropium [place] 1 PUF DAILY 04/10 1000 AC 05/18 INH 1050 Laboratory Tests 05/18/17 0815: Anion Gap 15, Estimated GFR 10 L, BUN/Creatinine Ratio 5.6 L 05/17/17 1800: 05/17/17 1404: Anion Gap 19 H, Estimated GFR 6 L, BUN/Creatinine Ratio 7.3, Calcium 8.7, Phosphorus 3.5, Magnesium 2.2, Albumin 4.1, CBC w Diff NO MAN DIFF REQ, RBC 3.52 L, MCV 91.3, MCH 29.6, RDW 17.3 H, MPV 7.2 L, Gran % 70.9, Lymphocytes % 17.7 L, Monocytes % 6.2, Eosinophils % 4.5, Basophils % 0.7, Absolute Granulocytes 6.9 H, Absolute Lymphocytes 1.7, Absolute Monocytes 0.6, Absolute Eosinophils 0.4, Absolute Basophils 0.1, PUBS MCHC 32.4 L
--- NOTE | 2017-05-18 12:14 | PN- Nephrology ---
Assessment/Plan Assessment: ESRD - No HD need today. Anemia - GI Bleed - Hg stable and at goal on current dose of Epogen. HTN - Under reasonable control. 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 Hyperkalemia - Persistent. Likely 2/2 dietary indiscretion. Need to start adding stool binders, especially during the 72hr stretch without HD. HD clearance is adequate based on yesterday's urea reduction ratio (measure of clearance). Suggestion: -HD tomorrow - UF to EDW 96kg -Cont TIW Epogen -Cont current BP regimen -Cinacalcet 60mg daily -Cont renvela -Low K diet; will add Kayexalate qSunday and qMonday Please call [phone] with ?'s Subjective Subjective: Pre-HD K 7.0 yesterday - down to 5.8 today Is on a renal diet Denies eating phos containing foods No clear issue with AVF Objective Vital Signs and I&Os Vital Signs Date Time Temp Pulse Resp B/P B/P Pulse O2 O2 Flow FiO2 Mean Ox Delivery Rate 05/18 1050 116/64 05/18 1049 116/64 05/18 0609 97.5 80 20 112/60 94 Room Air 05/17 2226 98.8 86 18 170/98 98 Room Air 05/17 2214 86 170/98 05/17 2213 86 170/98 05/17 2212 86 170/98 05/17 1903 144/90 05/17 1903 98.1 80 20 144/90 97 Room Air Intake & Output 05/18 1600 05/18 0400 05/17 1600 05/17 0400 05/16 1600 05/16 0400 Intake Total 240 240 890 240 640 480 Output Total Balance 240 240 890 240 640 480 Intake, IV 0 0 Intake, Oral 240 240 890 240 640 480 Number 0 0 1 Bowel Movements Patient 209 lb 211 lb 186 lb 209 lb Weight Weight Bed scale Bed scale Measurement Method Physical Exam: Gen - OK appearing HEENT - supple CV - RRR, no m/r/g Chest - clear, no w/r/r Abd - soft, NTND Ext - no edema Neuro - AOX3, grossly nonfocal Access - LUE AVF +bruit Current Medications: Current Medications Sig/Grace Start time Last Medication Dose Route Stop Time Status Admin Acetaminophen 325 MG Q6-PRN PRN 04/09 2245 AC 05/16 PO 2238 Albuterol Sulfate 2 PUF Q4P PRN 04/09 2300 AC 05/17 INH 2002 Aripiprazole 400 MG Q30D 04/24 0900 AC 04/24 IM 1330 Aspirin Buffered 81 MG 0800 04/10 0800 AC 05/18 PO 0837 Atorvastatin Calcium 40 MG 1700 04/10 1700 AC 05/17 PO 1903 Benztropine Mesylate 0.5 MG BID 04/10 1000 AC 05/18 PO 1050 Cinacalcet 60 MG DAILY 05/18 1000 AC 05/18 PO 1050 Cinacalcet 30 MG DAILY 04/10 1000 DC 05/17 PO 1905 Epoetin [place] 8,000 UNIT TUES THURS SAT PRN 04/10 1500 AC 05/03 IV 1345 Furosemide 80 MG 0800,2200 04/10 0800 AC 05/18 PO 0837 Gabapentin 300 MG AT BEDTIME 04/10 0215 AC 05/17 PO 2213 Hydralazine HCl 20 MG TID 05/08 1100 AC 05/18 PO 1049 Labetalol HCl 100 MG BID 04/10 1000 AC 05/18 PO 1050 Lamotrigine 150 MG DAILY 04/22 1000 AC 05/18 PO 1050 Multivitamins 1 TAB 1000 04/10 1000 AC 05/18 PO 1050 Omeprazole 40 MG DAILY AC 04/20 1325 AC 05/18 PO 0538 Oxcarbazepine 600 MG BID 04/10 1000 AC 05/18 PO 1050 Propranolol HCl 10 MG BID 04/10 1000 AC 05/18 PO 1050 Quetiapine Fumarate 400 MG AT BEDTIME 04/10 0215 AC 05/17 PO 2213 Sevelamer Carbonate 2,400 MG TIDAC 04/10 0800 AC 05/18 PO 1100 Tiotropium [place] 1 PUF DAILY 04/10 1000 AC 05/18 INH 1050 Results Pertinent Lab Results: Laboratory Tests 05/18 05/17 05/17 0815 1800 1404 Chemistry Sodium (137 - 145 mmol/L) 141 138 Potassium (3.5 - 5.1 mmol/L) 5.8 H 7.0 *H Chloride (98 - 107 mmol/L) 99 96 L Carbon Dioxide (22 - 30 mmol/L) 27 23 Anion Gap (5 - 16) 15 19 H BUN (9 - 20 mg/dL) 32 H 18 66 H Creatinine (0.7 - 1.2 mg/dL) 5.7 *H 9.1 *H Estimated GFR (>60 ml/min) 10 L 6 L BUN/Creatinine Ratio (7 - 25 %) 5.6 L 7.3 Calcium (8.4 - 10.2 mg/dL) 8.7 Phosphorus (2.5 - 4.5 mg/dL) 3.5 Magnesium (1.6 - 2.3 mg/dL) 2.2 Albumin (3.5 - 5.0 g/dL) 4.1 Hematology CBC w Diff NO MAN DIFF REQ WBC (4.8 - 10.8 /CUMM) 9.7 RBC (4.70 - 6.10 /CUMM) 3.52 L Hgb (14.0 - 18.0 G/DL) 10.4 L Hct (42 - 52 %) 32.2 L MCV (80.0 - 94.0 FL) 91.3 MCH (27.0 - 31.0 PG) 29.6 RDW (11.5 - 14.5 %) 17.3 H Plt Count (130 - 400 /CUMM) 369 MPV (7.4 - 10.4 FL) 7.2 L Gran % (42.2 - 75.2 %) 70.9 Lymphocytes % (20.5 - 51.1 %) 17.7 L Monocytes % (1.7 - 9.3 %) 6.2 Eosinophils % (0 - 5 %) 4.5 Basophils % (0.0 - 2.0 %) 0.7 Absolute Granulocytes (1.4 - 6.5 /CUMM) 6.9 H Absolute Lymphocytes (1.2 - 3.4 /CUMM) 1.7 Absolute Monocytes (0.10 - 0.60 /CUMM) 0.6 Absolute Eosinophils (0.0 - 0.7 /CUMM) 0.4 Absolute Basophils (0.0 - 0.2 /CUMM) 0.1 PUBS MCHC (33.0 - 37.0 G/DL) 32.4 L
[2017-05-18 14:06] VITALS: BP 138/72
[2017-05-18 23:08] VITALS: BP 148/92
[2017-05-19 06:33] VITALS: BP 140/80
[2017-05-19 08:58] LABS: ABSOLUTE BASOPHIL COUNT 0.1 /CUMM (0.0-0.2); ABSOLUTE EOSINOPHIL COUNT 0.5 /CUMM (0.0-0.7); ABSOLUTE GRANULOCYTE CT 6.9 /CUMM (1.4-6.5); ABSOLUTE LYMPH COUNT 1.8 /CUMM (1.2-3.4); ABSOLUTE MONOCYTE COUNT 0.8 /CUMM (0.10-0.60); BASOPHIL % 0.8 % (0.0-2.0); EOSINOPHIL % 4.6 % (0-5); GRANULOCYTE % 68.7 % (42.2-75.2); HEMATOCRIT 31.1 % (42-52); MEAN CORPUSCULAR HGB 30.1 PG (27.0-31.0); MEAN CORPUSCULAR HGB CONC 32.9 G/DL (33.0-37.0); MEAN CORPUSCULAR VOLUME 91.4 FL (80.0-94.0); MEAN PLATELET VOLUME 7.1 FL (7.4-10.4); PLATELET COUNT 382 /CUMM (130-400); RBC DISTRIBUTION WIDTH 17.7 % (11.5-14.5); RED BLOOD CELL CT 3.41 /CUMM (4.70-6.10); WHITE BLOOD CELL COUNT 10.1 /CUMM (4.8-10.8)
--- NOTE | 2017-05-19 14:18 | PN- Att Addend ---
Attending Addendum Attending Brief Note Patient anxious to get out of the hospital. Pressure still fluctuating was high last evening no new changes on physical just returned from hemodialysis. He knew present treatment and disposition plans. Intake & Output 05/19 1600 05/19 0400 05/18 1600 05/18 0400 05/17 1600 05/17 0400 Intake Total 480 677 490 240 890 240 Output Total Balance 480 677 490 240 890 240 Intake, IV 0 0 Intake, Oral 480 677 490 240 890 240 Number 0 0 Bowel Movements Patient 212 lb 209 lb 211 lb 186 lb Weight Weight Bed scale Bed scale Bed scale Measurement Method Current Medications Sig/Grace Start time Last Medication Dose Route Stop Time Status Admin Acetaminophen 325 MG Q6-PRN PRN 04/09 2245 AC 05/16 PO 2238 Albuterol Sulfate 2 PUF Q4P PRN 04/09 2300 AC 05/17 INH 2002 Aripiprazole 400 MG Q30D 04/24 0900 AC 04/24 IM 1330 Aspirin Buffered 81 MG 0800 04/10 0800 AC 05/19 PO 1252 Atorvastatin Calcium 40 MG 1700 04/10 1700 AC 05/18 PO 1624 Benztropine Mesylate 0.5 MG BID 04/10 1000 AC 05/19 PO 1300 Cinacalcet 60 MG DAILY 05/18 1000 AC 05/19 PO 1254 Epoetin [place] 8,000 UNIT TUES THURS SAT PRN 04/10 1500 AC 05/03 IV 1345 Furosemide 80 MG 0800,2200 04/10 0800 AC 05/19 PO 1253 Gabapentin 300 MG AT BEDTIME 04/10 0215 AC 05/18 PO 2158 Hydralazine HCl 20 MG TID 05/08 1100 AC 05/19 PO 1256 Labetalol HCl 100 MG BID 04/10 1000 AC 05/19 PO 1255 Lamotrigine 150 MG DAILY 04/22 1000 AC 05/19 PO 1257 Multivitamins 1 TAB 1000 04/10 1000 AC 05/19 PO 1252 Omeprazole 40 MG DAILY AC 04/20 1325 AC 05/19 PO 0509 Oxcarbazepine 600 MG BID 04/10 1000 AC 05/19 PO 1253 Propranolol HCl 10 MG BID 04/10 1000 AC 05/19 PO 1256 Quetiapine Fumarate 400 MG AT BEDTIME 04/10 0215 AC 05/18 PO 2158 Sevelamer Carbonate 2,400 MG TIDAC 04/10 0800 AC 05/19 PO 1304 Sodium Polystyrene 60 ML QMON 05/21 0700 AC Sulfonate PO Sodium Polystyrene 60 ML QSUN 05/20 0700 AC Sulfonate PO Tiotropium [place] 1 PUF DAILY 04/10 1000 AC 05/19 INH 1259 Laboratory Tests 05/19/17 0800: Anion Gap 17 H, Estimated GFR 7 L, BUN/Creatinine Ratio 6.4 L, Calcium 8.6, CBC w Diff NO MAN DIFF REQ, RBC 3.41 L, MCV 91.4, MCH 30.1, RDW 17.7 H, MPV 7.1 L, Gran % 68.7, Lymphocytes % 17.7 L, Monocytes % 8.2, Eosinophils % 4.6, Basophils % 0.8, Absolute Granulocytes 6.9 H, Absolute Lymphocytes 1.8, Absolute Monocytes 0.8 H, Absolute Eosinophils 0.5, Absolute Basophils 0.1, PUBS MCHC 32.9 L 05/18/17 0815: Anion Gap 15, Estimated GFR 10 L, BUN/Creatinine Ratio 5.6 L 05/17/17 1800: 05/17/17 1404: Anion Gap 19 H, Estimated GFR 6 L, BUN/Creatinine Ratio 7.3, Calcium 8.7, Phosphorus 3.5, Magnesium 2.2, Albumin 4.1, CBC w Diff NO MAN DIFF REQ, RBC 3.52 L, MCV 91.3, MCH 29.6, RDW 17.3 H, MPV 7.2 L, Gran % 70.9, Lymphocytes % 17.7 L, Monocytes % 6.2, Eosinophils % 4.5, Basophils % 0.7, Absolute Granulocytes 6.9 H, Absolute Lymphocytes 1.7, Absolute Monocytes 0.6, Absolute Eosinophils 0.4, Absolute Basophils 0.1, PUBS MCHC 32.4 L Vital Signs Date Time Temp Pulse Resp B/P B/P Pulse O2 O2 Flow FiO2 Mean Ox Delivery Rate 05/19 1256 90 138/90 05/19 1256 88 138/90 05/19 1255 90 13890 05/19 0633 99.0 80 20 140/80 99 05/18 2308 148/92 05/18 2251 98.3 20 97 Room Air 05/18 2157 81 178/110 05/18 2157 81 178/110 01/19 2157 81 178/110 05/18 1624 78 130/80
--- NOTE | 2017-05-19 14:56 | PN- Nephrology ---
Assessment/Plan Assessment: ESRD awaiting conservatorship. Dialyzed this morning without problems. Discussed low K diet with patient. Suggestion: . Subjective Subjective: PT dialyzed earlier without problems. Objective Vital Signs and I&Os M NAD 138/90 90 99 Lungs clear Cor RRR Abd soft n/t Ext neg edema Results Pertinent Lab Results: . K 5.5
[2017-05-19 16:00] VITALS: BP 142/88
[2017-05-19 23:27] VITALS: BP 128/68
[2017-05-20 07:07] VITALS: BP 154/98
--- NOTE | 2017-05-20 15:40 | PN- Att Addend ---
Attending Addendum Attending Brief Note Patient laying in bed comfortably. Vital signs are stable no fever and no changes on physicalf continue present treatment continue search place as soon as this happens will transfer. Intake & Output 05/20 1600 05/20 0400 05/19 1600 05/19 0400 05/18 1600 05/18 0400 Intake Total 1050 450 840 677 490 240 Output Total Balance 1050 450 840 677 490 240 Intake, IV 0 0 Intake, Oral 1050 450 840 677 490 240 Number 0 0 0 0 Bowel Movements Patient 210 lb 212 lb 209 lb 211 lb Weight Weight Bed scale Bed scale Measurement Method Current Medications Sig/Grace Start time Last Medication Dose Route Stop Time Status Admin Acetaminophen 325 MG Q6-PRN PRN 04/09 2245 AC 05/16 PO 2238 Albuterol Sulfate 2 PUF Q4P PRN 04/09 2300 AC 05/17 INH 2002 Aripiprazole 400 MG Q30D 04/24 0900 AC 04/24 IM 1330 Aspirin Buffered 81 MG 0800 04/10 0800 AC 05/20 PO 1033 Atorvastatin Calcium 40 MG 1700 04/10 1700 AC 05/19 PO 1657 Benztropine Mesylate 0.5 MG BID 04/10 1000 AC 05/20 PO 1045 Cinacalcet 60 MG DAILY 05/18 1000 AC 05/20 PO 1045 Epoetin Florentino 8,000 UNIT TUES THURS SAT PRN 04/10 1500 AC 05/03 IV 1345 Furosemide 80 MG 0800,2200 04/10 0800 AC 05/20 PO 1032 Gabapentin 300 MG AT BEDTIME 04/10 0215 AC 05/19 PO 2052 Hydralazine HCl 20 MG TID 05/08 1100 AC 05/20 PO 1033 Labetalol HCl 100 MG BID 04/10 1000 AC 05/20 PO 1033 Lamotrigine 150 MG DAILY 04/22 1000 AC 05/20 PO 1035 Multivitamins 1 TAB 1000 04/10 1000 AC 05/20 PO 1032 Omeprazole 40 MG DAILY AC 04/20 1325 AC 05/20 PO 0615 Oxcarbazepine 600 MG BID 04/10 1000 AC 05/20 PO 1032 Propranolol HCl 10 MG BID 04/10 1000 AC 05/20 PO 1033 Quetiapine Fumarate 400 MG AT BEDTIME 04/10 0215 AC 05/19 PO 205 Sevelamer Carbonate 2,400 MG TIDAC 04/10 0800 AC 05/20 PO 1230 Sodium Polystyrene 60 ML QMON 05/21 0700 AC Sulfonate PO Sodium Polystyrene 60 ML QSUN 05/20 0700 AC Sulfonate PO Tiotropium [place] 1 PUF DAILY 04/10 1000 AC 05/20 INH 1034 Laboratory Tests 05/19/17 0800: Anion Gap 17 H, Estimated GFR 7 L, BUN/Creatinine Ratio 6.4 L, Calcium 8.6, CBC w Diff NO MAN DIFF REQ, RBC 3.41 L, MCV 91.4, MCH 30.1, RDW 17.7 H, MPV 7.1 L, Gran % 68.7, Lymphocytes % 17.7 L, Monocytes % 8.2, Eosinophils % 4.6, Basophils % 0.8, Absolute Granulocytes 6.9 H, Absolute Lymphocytes 1.8, Absolute Monocytes 0.8 H, Absolute Eosinophils 0.5, Absolute Basophils 0.1, PUBS MCHC 32.9 L 05/18/17 0815: Anion Gap 15, Estimated GFR 10 L, BUN/Creatinine Ratio 5.6 L 05/17/17 1800: Vital Signs Date Time Temp Pulse Resp B/P B/P Pulse O2 O2 Flow FiO2 Mean Ox Delivery Rate 05/20 1033 154/98 05/20 1033 154/98 05/20 1033 154/98 05/20 0707 98.0 85 20 154/98 98 05/19 2327 99.0 90 20 128/68 94 Room Air 05/19 2052 90 128/68 05/19 2052 90 128/68 05/19 2052 90 128/68 05/19 1657 78 142/88 05/19 1600 97.8 78 20 142/88 97 Room Air
[2017-05-21 06:37] VITALS: BP 158/96
--- NOTE | 2017-05-21 10:55 | PN- Att Addend ---
Attending Addendum Attending Brief Note No new complaints patient anxious to get out of the hospital. Vital signs are stable no fever or no changes on physical disposition plans continue hemodialysis continues treat times a week, and patient is sitter is renewed every day. Intake & Output 05/21 1600 05/21 0400 05/20 1600 05/20 0400 05/19 1600 05/19 0400 Intake Total 393 269 0912 450 840 677 Output Total Balance 325 902 8781 450 840 677 Intake, Oral 480 103 2405 450 840 677 Number 0 0 Bowel Movements Patient 213 lb 210 lb 212 lb Weight Weight Bed scale Bed scale Measurement Method Current Medications Sig/Grace Start time Last Medication Dose Route Stop Time Status Admin Acetaminophen 325 MG Q6-PRN PRN 04/09 2245 AC 05/16 PO 2238 Albuterol Sulfate 2 PUF Q4P PRN 04/09 2300 AC 05/17 INH 2002 Aripiprazole 400 MG Q30D 04/24 0900 AC 04/24 IM 1330 Aspirin Buffered 81 MG 0800 04/10 0800 AC 05/21 PO 1000 Atorvastatin Calcium 40 MG 1700 04/10 1700 AC 05/20 PO 1620 Benztropine Mesylate 0.5 MG BID 04/10 1000 AC 05/21 PO 0959 Cinacalcet 60 MG DAILY 05/18 1000 AC 05/21 PO 0959 Epoetin Florentino 8,000 UNIT TUES THURS SAT PRN 04/10 1500 AC 05/03 IV 1345 Furosemide 80 MG 0800,2200 04/10 0800 AC 05/21 PO 1000 Gabapentin 300 MG AT BEDTIME 04/10 0215 AC 05/20 PO 211 Hydralazine HCl 20 MG TID 05/08 1100 AC 05/21 PO 0958 Labetalol HCl 100 MG BID 04/10 1000 AC 05/21 PO 0959 Lamotrigine 150 MG DAILY 04/22 1000 AC 05/21 PO 0959 Multivitamins 1 TAB 1000 04/10 1000 AC 05/21 PO 0959 Omeprazole 40 MG DAILY AC 04/20 1325 AC 05/21 PO 0506 Oxcarbazepine 600 MG BID 04/10 1000 AC 05/21 PO 0959 Propranolol HCl 10 MG BID 04/10 1000 AC 05/21 PO 0958 Quetiapine Fumarate 400 MG AT BEDTIME 04/10 0215 AC 05/20 PO 2110 Sevelamer Carbonate 2,400 MG TIDAC 04/10 0800 AC 05/20 PO 1620 Sodium Polystyrene 60 ML QMON 05/21 0700 AC Sulfonate PO Sodium Polystyrene 60 ML QSUN 05/20 0700 AC Sulfonate PO Tiotropium [place] 1 PUF DAILY 04/10 1000 AC 05/21 INH 1003 Laboratory Tests 05/19/17 0800: Anion Gap 17 H, Estimated GFR 7 L, BUN/Creatinine Ratio 6.4 L, Calcium 8.6, CBC w Diff NO MAN DIFF REQ, RBC 3.41 L, MCV 91.4, MCH 30.1, RDW 17.7 H, MPV 7.1 L, Gran % 68.7, Lymphocytes % 17.7 L, Monocytes % 8.2, Eosinophils % 4.6, Basophils % 0.8, Absolute Granulocytes 6.9 H, Absolute Lymphocytes 1.8, Absolute Monocytes 0.8 H, Absolute Eosinophils 0.5, Absolute Basophils 0.1, PUBS MCHC 32.9 L Vital Signs Date Time Temp Pulse Resp B/P B/P Pulse O2 O2 Flow FiO2 Mean Ox Delivery Rate 05/21 0959 78 160/92 05/21 0958 78 160/92 05/21 0958 78 160/92 05/21 0637 98.3 77 20 158/96 96 05/20 2204 97.8 20 96 Room Air 05/20 2110 78 158/90 05/20 2110 78 158/90 05/20 2108 78 15890 05/20 1621 140/80
[2017-05-21 12:16] LABS: ABSOLUTE BASOPHIL COUNT 0.1 /CUMM (0.0-0.2); ABSOLUTE EOSINOPHIL COUNT 0.5 /CUMM (0.0-0.7); ABSOLUTE GRANULOCYTE CT 6.8 /CUMM (1.4-6.5); ABSOLUTE LYMPH COUNT 1.8 /CUMM (1.2-3.4); ABSOLUTE MONOCYTE COUNT 0.7 /CUMM (0.10-0.60); BASOPHIL % 0.8 % (0.0-2.0); EOSINOPHIL % 4.6 % (0-5); GRANULOCYTE % 69.1 % (42.2-75.2); HEMATOCRIT 32.6 % (42-52); MEAN CORPUSCULAR HGB 29.8 PG (27.0-31.0); MEAN CORPUSCULAR HGB CONC 32.6 G/DL (33.0-37.0); MEAN CORPUSCULAR VOLUME 91.3 FL (80.0-94.0); MEAN PLATELET VOLUME 7.1 FL (7.4-10.4); PLATELET COUNT 385 /CUMM (130-400); RBC DISTRIBUTION WIDTH 17.4 % (11.5-14.5); RED BLOOD CELL CT 3.57 /CUMM (4.70-6.10); WHITE BLOOD CELL COUNT 9.8 /CUMM (4.8-10.8)
[2017-05-21 15:10] VITALS: BP 162/94
[2017-05-21 21:40] VITALS: BP 162/88
[2017-05-21 22:30] VITALS: BP 162/88
[2017-05-22 06:42] VITALS: BP 150/90
--- NOTE | 2017-05-22 13:34 | PN- Att Addend ---
Attending Addendum Attending Brief Note No new issues, patient laying in bed vital signs are stable no fever and no changes on physical her to continue disposition plans and tinea hemodialysis continue the sitter. Intake & Output 05/22 1600 05/22 0400 05/21 1600 05/21 0400 05/20 1600 05/20 0400 Intake Total 200 480 345 571 3878 450 Output Total Balance 200 480 196 295 1170 450 Intake, Oral 200 480 830 025 7169 450 Number 0 Bowel Movements Patient 216 lb 213 lb 210 lb Weight Weight Bed scale Measurement Method Current Medications Sig/Grace Start time Last Medication Dose Route Stop Time Status Admin Acetaminophen 325 MG Q6-PRN PRN 04/09 2245 AC 05/21 PO 213 Albuterol Sulfate 2 PUF Q4P PRN 04/09 2300 AC 05/17 INH 2003 Aripiprazole 400 MG Q30D 04/24 0900 AC 04/24 IM 1330 Aspirin Buffered 81 MG 0800 04/10 0800 AC 05/22 PO 1020 Atorvastatin Calcium 40 MG 1700 04/10 1700 AC 05/21 PO 1656 Benztropine Mesylate 0.5 MG BID 04/10 1000 AC 05/21 PO 2131 Cinacalcet 60 MG DAILY 05/18 1000 AC 05/21 PO 0959 Epoetin [place] 8,000 UNIT TUES THURS SAT PRN 04/10 1500 AC 05/03 IV 1345 Furosemide 80 MG 0800,2200 04/10 0800 AC 05/22 PO 1020 Gabapentin 300 MG AT BEDTIME 04/10 0215 AC 05/21 PO 2132 Hydralazine HCl 20 MG TID 05/08 1100 AC 05/21 PO 2130 Labetalol HCl 100 MG BID 04/10 1000 AC 05/21 PO 2132 Lamotrigine 150 MG DAILY 04/22 1000 AC 05/21 PO 0959 Multivitamins 1 TAB 1000 04/10 1000 AC 05/21 PO 0959 Omeprazole 40 MG DAILY AC 04/20 1325 AC 05/22 PO 0415 Oxcarbazepine 600 MG BID 04/10 1000 AC 05/21 PO 2132 Propranolol HCl 10 MG BID 04/10 1000 AC 05/21 PO 2131 Quetiapine Fumarate 400 MG AT BEDTIME 04/10 0215 AC 05/21 PO 2133 Sevelamer Carbonate 2,400 MG TIDAC 04/10 0800 AC 05/22 PO 1020 Sodium Polystyrene 60 ML QMON 05/21 0700 AC Sulfonate PO Sodium Polystyrene 60 ML QSUN 05/20 0700 AC Sulfonate PO Tiotropium [place] 1 PUF DAILY 04/10 1000 AC 05/21 INH 1003 Laboratory Tests 05/21/17 1103: Anion Gap 18 H, Estimated GFR 7 L, BUN/Creatinine Ratio 6.0 L, CBC w Diff NO MAN DIFF REQ, RBC 3.57 L, MCV 91.3, MCH 29.8, RDW 17.4 H, MPV 7.1 L, Gran % 69.1, Lymphocytes % 18.4 L, Monocytes % 7.1, Eosinophils % 4.6, Basophils % 0.8 , Absolute Granulocytes 6.8 H, Absolute Lymphocytes 1.8, Absolute Monocytes 0.7 H, Absolute Eosinophils 0.5, Absolute Basophils 0.1, PUBS MCHC 32.6 L Vital Signs Date Time Temp Pulse Resp B/P B/P Pulse O2 O2 Flow FiO2 Mean Ox Delivery Rate 05/22 0642 98.6 85 20 150/90 96 Room Air 05/21 2230 98.6 87 18 162/88 95 Room Air 05/21 2140 98.6 87 20 162/88 95 05/21 2132 87 162/88 05/21 2131 87 162/88 05/21 2130 87 162/88 05/21 1656 80 160/92 05/21 1510 97.9 80 18 162/94 97
--- NOTE | 2017-05-22 14:36 | PN- Nephrology ---
Assessment/Plan Assessment: 1. ESRD 2. Tendency toward hyperkalemia 3. Anemia, status post GI bleed 4. Bipolar disorder 5. History of chronic noncompliance Suggestion: 1. Hemodialysis today using a 1mEq/L K bath with ultrafiltration to estimated dry weight as tolerated 2. Will continue kayexalate 15gms po qSun and Mon 3. Next hemodialysis for 05/24 4. Awaiting disposition Subjective Subjective: No complaints. Seen with dialysis. Serum potassium continues to be higher than appropriate. Objective Vital Signs and I&Os Vital Signs Date Time Temp Pulse Resp B/P B/P Pulse O2 O2 Flow FiO2 Mean Ox Delivery Rate 05/22 0642 98.6 85 20 150/90 96 Room Air 05/21 2230 98.6 87 18 162/88 95 Room Air 05/21 2140 98.6 87 20 162/88 95 05/21 2132 87 162/88 05/21 2131 87 162/88 05/21 2130 87 162/88 05/21 1656 80 160/92 05/21 1510 97.9 80 18 162/94 97 Intake & Output 05/22 1600 05/22 0400 05/21 1600 05/21 0400 05/20 1600 05/20 0400 Intake Total 200 480 762 362 7838 450 Output Total Balance 200 480 917 692 1563 450 Intake, Oral 200 480 017 914 7216 450 Number 0 Bowel Movements Patient 216 lb 213 lb 210 lb Weight Weight Bed scale Measurement Method Physical Exam: General: Well-developed white male in no acute distress Skin: No rash or jaundice HEENT: Conjunctivae pale, sclerae anicteric, mucous membranes moist Neck: Without masses or thyromegaly, no supraclavicular or cervical adenopathy Chest: Clear to P & A Heart: Regular rate and rhythm without S3 or rub Abdomen: Obese, soft and nontender without palpable masses or organomegaly Extremities: Without cyanosis or edema, left lower arm AVF patent Neuro: No focal findings, no asterixis or myoclonus Current Medications: Current Medications Sig/Grace Start time Last Medication Dose Route Stop Time Status Admin Acetaminophen 325 MG Q6-PRN PRN 04/09 2245 AC 05/21 PO 2135 Albuterol Sulfate 2 PUF Q4P PRN 04/09 2300 AC 05/17 INH 2002 Aripiprazole 400 MG Q30D 04/24 0900 AC 04/24 IM 1330 Aspirin Buffered 81 MG 0800 04/10 0800 AC 05/22 PO 1020 Atorvastatin Calcium 40 MG 1700 04/10 1700 AC 05/21 PO 1656 Benztropine Mesylate 0.5 MG BID 04/10 1000 AC 05/21 PO 2131 Cinacalcet 60 MG DAILY 05/18 1000 AC 05/21 PO 0959 Epoetin Florent[place] 8,000 UNIT TUES THURS SAT PRN 04/10 1500 AC 05/03 IV 1345 Furosemide 80 MG 0800,2200 04/10 0800 AC 05/22 PO 1020 Gabapentin 300 MG AT BEDTIME 04/10 0215 AC 05/21 PO 2132 Hydralazine HCl 20 MG TID 05/08 1100 AC 05/21 PO 2130 Labetalol HCl 100 MG BID 04/10 1000 AC 05/21 PO 2132 Lamotrigine 150 MG DAILY 04/22 1000 AC 05/21 PO 0959 Multivitamins 1 TAB 1000 04/10 1000 AC 05/21 PO 0959 Omeprazole 40 MG DAILY AC 04/20 1325 AC 05/22 PO 0415 Oxcarbazepine 600 MG BID 04/10 1000 AC 05/21 PO 2132 Propranolol HCl 10 MG BID 04/10 1000 AC 05/21 PO 2131 Quetiapine Fumarate 400 MG AT BEDTIME 04/10 0215 AC 05/21 PO 2133 Sevelamer Carbonate 2,400 MG TIDAC 04/10 0800 AC 05/22 PO 1020 Sodium Polystyrene 60 ML QMON 05/21 0700 AC Sulfonate PO Sodium Polystyrene 60 ML QSUN 05/20 0700 AC Sulfonate PO Tiotropium [place] 1 PUF DAILY 04/10 1000 AC 05/21 INH 1003 Results Pertinent Lab Results: Laboratory Tests 05/21 1103 Chemistry Sodium (137 - 145 mmol/L) 143 Potassium (3.5 - 5.1 mmol/L) 5.8 H Chloride (98 - 107 mmol/L) 100 Carbon Dioxide (22 - 30 mmol/L) 25 Anion Gap (5 - 16) 18 H BUN (9 - 20 mg/dL) 49 H Creatinine (0.7 - 1.2 mg/dL) 8.1 *H Estimated GFR (>60 ml/min) 7 L BUN/Creatinine Ratio (7 - 25 %) 6.0 L Hematology CBC w Diff NO MAN DIFF REQ WBC (4.8 - 10.8 /CUMM) 9.8 RBC (4.70 - 6.10 /CUMM) 3.57 L Hgb (14.0 - 18.0 G/DL) 10.6 L Hct (42 - 52 %) 32.6 L MCV (80.0 - 94.0 FL) 91.3 MCH (27.0 - 31.0 PG) 29.8 RDW (11.5 - 14.5 %) 17.4 H Plt Count (130 - 400 /CUMM) 385 MPV (7.4 - 10.4 FL) 7.1 L Gran % (42.2 - 75.2 %) 69.1 Lymphocytes % (20.5 - 51.1 %) 18.4 L Monocytes % (1.7 - 9.3 %) 7.1 Eosinophils % (0 - 5 %) 4.6 Basophils % (0.0 - 2.0 %) 0.8 Absolute Granulocytes (1.4 - 6.5 /CUMM) 6.8 H Absolute Lymphocytes (1.2 - 3.4 /CUMM) 1.8 Absolute Monocytes (0.10 - 0.60 /CUMM) 0.7 H Absolute Eosinophils (0.0 - 0.7 /CUMM) 0.5 Absolute Basophils (0.0 - 0.2 /CUMM) 0.1 PUBS MCHC (33.0 - 37.0 G/DL) 32.6 L
[2017-05-22 22:47] VITALS: BP 168/98
[2017-05-23 06:21] VITALS: BP 150/80
--- NOTE | 2017-05-23 13:29 | Incdntl Nt Psy ---
Incidental Note Notation: 05/23/17 @ 1315: The patient is calm, cooperative, alert and oriented. He denies AH or VH and presents no rufina delusions. He denies SI or HI. Insight and judgement are moderate. He agrees to his monthly Abilify Maintena injection, which I have verified from previous reports and medication claim history. In addition to his other ordered medications, add: Abilify Maintena 400 mg (One syringe/dose) IM every 30 days, scheduled. Last dose was 04/24/17. Next dose due 05/24/17. Labs reviewed. No leukopenia noted. Glucose is being monitored. The patient is on hemodialysis. I will order this today.
--- NOTE | 2017-05-23 14:21 | PN- Att Addend ---
Attending Addendum Attending Brief Note No new issues patient sleeps a lot. Vital signs are stable no fever did not changes on physical. To continue present treatments hemodialysis treatment times a week and continue with the disposition plans. Intake & Output 05/23 1600 05/23 0400 05/22 1600 05/22 0400 05/21 1600 05/21 0400 Intake Total 200 480 840 700 Output Total Balance 200 480 840 700 Intake, Oral 200 480 840 700 Number 0 Bowel Movements Patient 216 lb 213 lb Weight Weight Bed scale Measurement Method Current Medications Sig/Grace Start time Last Medication Dose Route Stop Time Status Admin Acetaminophen 325 MG Q6-PRN PRN 04/09 2245 AC 05/21 PO 2136 Albuterol Sulfate 2 PUF Q4P PRN 04/09 2300 AC 05/17 INH 2002 Aripiprazole 400 MG Q30D 04/24 0900 AC 04/24 IM 1330 Aspirin Buffered 81 MG 0800 04/10 0800 AC 05/23 PO 0958 Atorvastatin Calcium 40 MG 1700 04/10 1700 AC 05/22 PO 1634 Benztropine Mesylate 0.5 MG BID 04/10 1000 AC 05/23 PO 1146 Cinacalcet 60 MG DAILY 05/18 1000 AC 05/23 PO 1145 Epoetin Florentino 8,000 UNIT TUES THURS SAT PRN 04/10 1500 AC 05/03 IV 1345 Furosemide 80 MG 0800,2200 04/10 0800 AC 05/23 PO 0958 Gabapentin 300 MG AT BEDTIME 04/10 0215 AC 05/22 PO 2149 Hydralazine HCl 20 MG TID 05/08 1100 AC 05/23 PO 0958 Labetalol HCl 100 MG BID 04/10 1000 AC 05/23 PO 1146 Lamotrigine 150 MG DAILY 04/22 1000 AC 05/23 PO 1145 Multivitamins 1 TAB 1000 04/10 1000 AC 05/23 PO 1146 Omeprazole 40 MG DAILY AC 04/20 1325 AC 05/23 PO 0713 Oxcarbazepine 600 MG BID 04/10 1000 AC 05/23 PO 1145 Propranolol HCl 10 MG BID 04/10 1000 AC 05/23 PO 1145 Quetiapine Fumarate 400 MG AT BEDTIME 04/10 0215 AC 05/22 PO 2148 Sevelamer Carbonate 2,400 MG TIDAC 04/10 0800 AC 05/23 PO 1144 Sodium Polystyrene 60 ML QMON 05/21 0700 AC Sulfonate PO Sodium Polystyrene 60 ML QSUN 05/20 0700 AC Sulfonate PO Tiotropium [place] 1 PUF DAILY 04/10 1000 AC 05/23 INH 0959 Laboratory Tests 05/22/17 1442: [id number]-[id number] Pept Cancelled 05/21/17 1103: Anion Gap 18 H, Estimated GFR 7 L, BUN/Creatinine Ratio 6.0 L, CBC w Diff NO MAN DIFF REQ, RBC 3.57 L, MCV 91.3, MCH 29.8, RDW 17.4 H, MPV 7.1 L, Gran % 69.1, Lymphocytes % 18.4 L, Monocytes % 7.1, Eosinophils % 4.6, Basophils % 0.8 , Absolute Granulocytes 6.8 H, Absolute Lymphocytes 1.8, Absolute Monocytes 0.7 H, Absolute Eosinophils 0.5, Absolute Basophils 0.1, PUBS MCHC 32.6 L Vital Signs Date Time Temp Pulse Resp B/P B/P Pulse O2 O2 Flow FiO2 Mean Ox Delivery Rate 05/23 0958 150/80 05/23 0621 97.6 81 20 150/80 96 05/22 2247 98.2 80 18 168/98 97 Room Air 05/22 2152 80 168/98 05/22 215 60 138/98 05/22 215 80 168/98 05/22 1637 82 158/86 05/22 1632 82 158/86 05/22 1631 82 158/86
[2017-05-23 14:46] VITALS: BP 170/98
[2017-05-23 22:40] VITALS: BP 152/98
[2017-05-24 05:21] VITALS: BP 142/70
[2017-05-24 09:13] LABS: ABSOLUTE BASOPHIL COUNT 0.1 /CUMM (0.0-0.2); ABSOLUTE EOSINOPHIL COUNT 0.5 /CUMM (0.0-0.7); ABSOLUTE GRANULOCYTE CT 4.4 /CUMM (1.4-6.5); ABSOLUTE LYMPH COUNT 1.7 /CUMM (1.2-3.4); ABSOLUTE MONOCYTE COUNT 0.8 /CUMM (0.10-0.60); BASOPHIL % 1.3 % (0.0-2.0); EOSINOPHIL % 6.6 % (0-5); HEMATOCRIT 31.6 % (42-52); MEAN CORPUSCULAR HGB 29.5 PG (27.0-31.0); MEAN CORPUSCULAR HGB CONC 32.5 G/DL (33.0-37.0); MEAN CORPUSCULAR VOLUME 90.9 FL (80.0-94.0); PLATELET COUNT 364 /CUMM (130-400); RBC DISTRIBUTION WIDTH 17.3 % (11.5-14.5); RED BLOOD CELL CT 3.48 /CUMM (4.70-6.10); WHITE BLOOD CELL COUNT 7.5 /CUMM (4.8-10.8)
--- NOTE | 2017-05-24 11:48 | PN- Nephrology ---
Assessment/Plan Assessment: 1. ESRD 2. Tendency toward hyperkalemia 3. Anemia, status post GI bleed 4. Bipolar disorder 5. History of chronic noncompliance Suggestion: 1. Hemodialysis today using a 1mEq/L K bath with ultrafiltration to estimated dry weight as tolerated 2. Continue kayexalate 15gms po qSun and Mon 3. Next hemodialysis for Friday 05/26 4. Awaiting disposition Subjective Subjective: No significant change. Patient seen with hemodialysis. Predialysis serum potassium normal today. Objective Vital Signs and I&Os Vital Signs Date Time Temp Pulse Resp B/P B/P Pulse O2 O2 Flow FiO2 Mean Ox Delivery Rate 05/24 0521 98.5 85 20 142/70 96 Room Air 05/23 2240 98.3 86 20 152/98 97 Room Air 05/23 2219 86 152/98 05/23 2218 86 152/98 05/23 2217 86 152/98 05/23 1446 98.1 84 16 170/98 97 Intake & Output 05/24 1600 05/24 0400 05/23 1600 05/23 0400 05/22 1600 05/22 0400 Intake Total 120 480 650 200 480 Output Total Balance 120 480 650 200 480 Intake, Oral 120 480 650 200 480 Number 0 Bowel Movements Patient 218 lb 216 lb Weight Physical Exam: General: Well-developed white male in no acute distress Skin: No rash or jaundice HEENT: Conjunctivae pale, sclerae anicteric, mucous membranes moist Neck: Without masses or thyromegaly, no supraclavicular or cervical adenopathy Chest: Clear to P & A Heart: Regular rate and rhythm without S3 or rub Abdomen: Obese, soft and nontender without palpable masses or organomegaly Extremities: Without cyanosis or edema, left lower arm AVF patent Neuro: No focal findings, no asterixis or myoclonus Results Pertinent Lab Results: Laboratory Tests 05/24 05/22 0700 1442 Chemistry Sodium (137 - 145 mmol/L) 143 Potassium (3.5 - 5.1 mmol/L) 4.9 Chloride (98 - 107 mmol/L) 100 Carbon Dioxide (22 - 30 mmol/L) 25 Anion Gap (5 - 16) 18 H BUN (9 - 20 mg/dL) 54 H Creatinine (0.7 - 1.2 mg/dL) 8.2 *H Estimated GFR (>60 ml/min) 7 L BUN/Creatinine Ratio (7 - 25 %) 6.6 L Calcium (8.4 - 10.2 mg/dL) 8.1 L Phosphorus (2.5 - 4.5 mg/dL) 3.7 Magnesium (1.6 - 2.3 mg/dL) 2.1 [id number] Pept Cancelled Albumin (3.5 - 5.0 g/dL) 3.8 Hematology CBC w Diff NO MAN DIFF REQ Cancelled WBC (4.8 - 10.8 /CUMM) 7.5 Cancelled RBC (4.70 - 6.10 /CUMM) 3.48 L Cancelled Hgb (14.0 - 18.0 G/DL) 10.3 L Cancelled Hct (42 - 52 %) 31.6 L Cancelled MCV (80.0 - 94.0 FL) 90.9 Cancelled MCH (27.0 - 31.0 PG) 29.5 Cancelled MCHC (33.0 - 37.0 G/DL) 32.5 L Cancelled RDW (11.5 - 14.5 %) 17.3 H Cancelled Plt Count (130 - 400 /CUMM) 364 Cancelled MPV (7.4 - 10.4 FL) 7.0 L Cancelled Gran % (42.2 - 75.2 %) 59.0 Lymphocytes % (20.5 - 51.1 %) 22.7 Monocytes % (1.7 - 9.3 %) 10.4 H Eosinophils % (0 - 5 %) 6.6 H Basophils % (0.0 - 2.0 %) 1.3 Absolute Granulocytes (1.4 - 6.5 /CUMM) 4.4 Absolute Lymphocytes (1.2 - 3.4 /CUMM) 1.7 Absolute Monocytes (0.10 - 0.60 /CUMM) 0.8 H Absolute Eosinophils (0.0 - 0.7 /CUMM) 0.5 Absolute Basophils (0.0 - 0.2 /CUMM) 0.1
--- NOTE | 2017-05-24 12:49 | PN- Att Addend ---
Attending Addendum Attending Brief Note Patient having his hemodialysis scheduled area has no complaints except he wants to get out of here. Vital signs are stable with no new changes on physical to continue present treatments and disposition plans (her will be meeting today at 1:00 to get an update of the wishes of the conservator) Intake & Output 05/24 1600 05/24 0400 05/23 1600 05/23 0400 05/22 1600 05/22 0400 Intake Total 120 480 650 200 480 Output Total Balance 120 480 650 200 480 Intake, Oral 120 480 650 200 480 Number 0 Bowel Movements Patient 218 lb 216 lb Weight Laboratory Tests 05/24/17 1145: Sodium Pending, Potassium Pending, Chloride Pending, Carbon Dioxide Pending, Anion Gap Pending, BUN Pending, Creatinine Pending, BUN/Creatinine Ratio Pending , Calcium Pending 05/24/17 0700: Anion Gap 18 H, Estimated GFR 7 L, BUN/Creatinine Ratio 6.6 L, Calcium 8.1 L , Phosphorus 3.7, Magnesium 2.1, Albumin 3.8, CBC w Diff NO MAN DIFF REQ, RBC 3.48 L, MCV 90.9, MCH 29.5, MCHC 32.5 L, RDW 17.3 H, MPV 7.0 L, Gran % 59.0, Lymphocytes % 22.7, Monocytes % 10.4 H, Eosinophils % 6.6 H, Basophils % 1.3, Absolute Granulocytes 4.4, Absolute Lymphocytes 1.7, Absolute Monocytes 0.8 H, Absolute Eosinophils 0.5, Absolute Basophils 0.1 05/22/17 1442: Zmy-W-Vjvhiafzqbo Pept Cancelled, CBC w Diff Cancelled, WBC Cancelled, RBC Cancelled, Hgb Cancelled, Hct Cancelled, MCV Cancelled, MCH Cancelled, MCHC Cancelled, RDW Cancelled, Plt Count Cancelled, MPV Cancelled Vital Signs Date Time Temp Pulse Resp B/P B/P Pulse O2 O2 Flow FiO2 Mean Ox Delivery Rate 05/24 0521 98.5 85 20 142/70 96 Room Air 05/23 2240 98.3 86 20 152/98 97 Room Air 05/23 2218 86 152/98 05/23 2218 86 152/98 05/23 2217 86 152/98 05/23 1446 98.1 84 16 170/98 97
[2017-05-24 13:55] VITALS: BP 120/80
[2017-05-25 06:05] VITALS: BP 150/80
--- NOTE | 2017-05-25 13:33 | PN- Att Addend ---
Attending Addendum Attending Brief Note No new issues vital signs are stable no fever. No changes on physical. Sitter continues to monitor the patient. Hemodialysis treatment times a week. 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 Intake & Output 05/25 1600 05/25 0400 05/24 1600 05/24 0400 05/23 1600 05/23 0400 Intake Total 480 240 670 480 650 Output Total Balance 480 240 670 480 650 Intake, IV 0 0 Intake, Oral 480 240 670 480 650 Number 0 0 Bowel Movements Patient 216 lb 218 lb Weight Current Medications Sig/Grace Start time Last Medication Dose Route Stop Time Status Admin Acetaminophen 325 MG Q6-PRN PRN 04/09 2245 AC 05/25 PO 0612 Albuterol Sulfate 2 PUF Q4P PRN 04/09 2300 AC 05/17 INH 2002 Aripiprazole 400 MG Q30D 04/24 0900 AC 05/24 IM 1239 Aspirin Buffered 81 MG 0800 04/10 0800 AC 05/25 PO 0820 Atorvastatin Calcium 40 MG 1700 04/10 1700 AC 05/24 PO 1721 Benztropine Mesylate 0.5 MG BID 04/10 1000 AC 05/25 PO 0820 Cinacalcet 60 MG DAILY 05/18 1000 AC 05/25 PO 0821 Epoetin Florentino 8,000 UNIT TUES THURS SAT PRN 04/10 1500 AC 05/03 IV 1345 Furosemide 80 MG 0800,2200 04/10 0800 AC 05/25 PO 0820 Gabapentin 300 MG AT BEDTIME 04/10 0215 AC 05/24 PO 2107 Hydralazine HCl 20 MG TID 05/08 1100 AC 05/25 PO 0821 Labetalol HCl 100 MG BID 04/10 1000 AC 05/25 PO 0821 Lactobacillus 1 CAP BID 05/24 2200 AC 05/25 Acidophilus PO 0819 Lamotrigine 150 MG DAILY 04/22 1000 AC 05/25 PO 0822 Multivitamins 1 TAB 1000 04/10 1000 AC 05/25 PO 0820 Omeprazole 40 MG DAILY AC 04/20 1325 AC 05/25 PO 0612 Oxcarbazepine 600 MG BID 04/10 1000 AC 05/25 PO 0820 Propranolol HCl 10 MG BID 04/10 1000 AC 05/25 PO 0821 Quetiapine Fumarate 400 MG AT BEDTIME 04/10 0215 AC 05/24 PO 2108 Sevelamer Carbonate 2,400 MG TIDAC 04/10 0800 AC 05/25 PO 1213 Sodium Polystyrene 60 ML QMON 05/21 0700 AC Sulfonate PO Sodium Polystyrene 60 ML QSUN 05/20 07 AC Sulfonate PO Tiotropium [place] 1 PUF DAILY 04/10 1000 AC 05/25 INH 0819 Laboratory Tests 05/24/17 1145: Anion Gap 12, Estimated GFR 22 L, BUN/Creatinine Ratio 5.2 L, Calcium 8.6 05/24/17 0700: Anion Gap 18 H, Estimated GFR 7 L, BUN/Creatinine Ratio 6.6 L, Calcium 8.1 L , Phosphorus 3.7, Magnesium 2.1, Albumin 3.8, CBC w Diff NO MAN DIFF REQ, RBC 3.48 L, MCV 90.9, MCH 29.5, MCHC 32.5 L, RDW 17.3 H, MPV 7.0 L, Gran % 59.0, Lymphocytes % 22.7, Monocytes % 10.4 H, Eosinophils % 6.6 H, Basophils % 1.3, Absolute Granulocytes 4.4, Absolute Lymphocytes 1.7, Absolute Monocytes 0.8 H, Absolute Eosinophils 0.5, Absolute Basophils 0.1 05/22/17 1442: Ikk-[id number]-Qebkjfhljdm Pept Cancelled, CBC w Diff Cancelled, WBC Cancelled, RBC Cancelled, Hgb Cancelled, Hct Cancelled, MCV Cancelled, MCH Cancelled, MCHC Cancelled, RDW Cancelled, Plt Count Cancelled, MPV Cancelled Vital Signs Date Time Temp Pulse Resp B/P B/P Pulse O2 O2 Flow FiO2 Mean Ox Delivery Rate 05/25 08 150/80 05/25 0821 150/80 05/25 0821 150/80 05/25 0605 98.0 78 20 150/80 98 05/24 1355 98.1 83 18 120/80 96
[2017-05-25 14:19] VITALS: BP 150/98
[2017-05-25 23:00] VITALS: BP 159/94
[2017-05-26 06:27] VITALS: BP 164/98
[2017-05-26 07:01] VITALS: BP 152/96
[2017-05-26 08:54] LABS: ABSOLUTE BASOPHIL COUNT 0.1 /CUMM (0.0-0.2); ABSOLUTE EOSINOPHIL COUNT 0.6 /CUMM (0.0-0.7); ABSOLUTE GRANULOCYTE CT 5.6 /CUMM (1.4-6.5); ABSOLUTE LYMPH COUNT 1.7 /CUMM (1.2-3.4); ABSOLUTE MONOCYTE COUNT 0.7 /CUMM (0.10-0.60); BASOPHIL % 0.9 % (0.0-2.0); EOSINOPHIL % 6.5 % (0-5); GRANULOCYTE % 64.3 % (42.2-75.2); MEAN CORPUSCULAR HGB 29.5 PG (27.0-31.0); MEAN CORPUSCULAR HGB CONC 32.3 G/DL (33.0-37.0); MEAN CORPUSCULAR VOLUME 91.4 FL (80.0-94.0); MEAN PLATELET VOLUME 7.1 FL (7.4-10.4); PLATELET COUNT 371 /CUMM (130-400); RBC DISTRIBUTION WIDTH 18.3 % (11.5-14.5); RED BLOOD CELL CT 3.72 /CUMM (4.70-6.10); WHITE BLOOD CELL COUNT 8.8 /CUMM (4.8-10.8)
[2017-05-26 13:00] VITALS: BP 158/92
--- NOTE | 2017-05-26 15:59 | PN- Nephrology ---
Assessment/Plan Assessment: End-stage renal disease: Had HD this AM as per Sunday schedule. Had 3.5L fluid removal today at HD --next HD on sunday Anemia: H/H stable Receives epogen 3x/week with each HD. Suggestion: Will continue HD Sunday, with Epogen at each session Pre-dialysis labs were drawn and are pending Subjective Subjective: No acute events dialyzed today 2.5L removed pt without complaints Review of Systems: no edema/cp/sob Objective Vital Signs and I&Os Vital Signs Date Time Temp Pulse Resp B/P B/P Pulse O2 O2 Flow FiO2 Mean Ox Delivery Rate 05/26 1300 98.2 78 18 158/92 96 Room Air Room Air 05/26 1247 78 158/92 05/26 1247 78 158/92 05/26 1246 78 158/92 05/26 0701 98.2 82 18 152/96 97 Room Air 05/26 0627 97.6 83 20 164/98 97 05/25 2300 98.4 84 18 159/94 98 Room Air 05/25 215 84 159/94 05/25 2156 84 159/94 05/25 2156 84 159/94 05/25 1700 86 150/98 Intake & Output 05/26 1600 05/26 0400 05/25 1600 05/25 0400 05/24 1600 05/24 0400 Intake Total 037 213 1061 240 670 480 Output Total Balance 520 871 0115 240 670 480 Intake, IV 0 0 Intake, Oral 898 659 0119 240 670 480 Number 1 0 Bowel Movements Patient 214 lb 216 lb 218 lb Weight Weight Bed scale Measurement Method Physical Exam: nad ctab S1 S2 no edema LUE AVF+thrill/bruit soft NT no lyon Current Medications: Current Medications Sig/Grace Start time Last Medication Dose Route Stop Time Status Admin Acetaminophen 325 MG Q6-PRN PRN 04/09 2245 AC 05/25 PO 0612 Albuterol Sulfate 2 PUF Q4P PRN 04/09 2300 AC 05/17 INH 2002 Aripiprazole 400 MG Q30D 04/24 0900 AC 05/24 IM 1239 Aspirin Buffered 81 MG 0800 04/10 0800 AC 05/26 PO 1245 Atorvastatin Calcium 40 MG 1700 04/10 1700 AC 05/25 PO 1700 Benztropine Mesylate 0.5 MG BID 04/10 1000 AC 05/26 PO 1246 Cinacalcet 60 MG DAILY 05/18 1000 AC 05/26 PO 1247 Epoetin Florentino 8,000 UNIT TUES THURS SAT PRN 04/10 1500 AC 05/03 IV 1345 Furosemide 80 MG 0800,2200 04/10 0800 AC 05/26 PO 1246 Gabapentin 300 MG AT BEDTIME 04/10 0215 AC 05/25 PO 2156 Hydralazine HCl 20 MG TID 05/08 1100 AC 05/26 PO 1246 Labetalol HCl 100 MG BID 04/10 1000 AC 05/26 PO 1247 Lactobacillus 1 CAP BID 05/24 2200 AC 05/26 Acidophilus PO 1247 Lamotrigine 150 MG DAILY 04/22 1000 AC 05/26 PO 1246 Multivitamins 1 TAB 1000 04/10 1000 AC 05/26 PO 1247 Omeprazole 40 MG DAILY AC 04/20 1325 AC 05/26 PO 0523 Oxcarbazepine 600 MG BID 04/10 1000 AC 05/26 PO 1247 Propranolol HCl 10 MG BID 04/10 1000 AC 05/26 PO 1247 Quetiapine Fumarate 400 MG AT BEDTIME 04/10 0215 AC 05/25 PO 2154 Sevelamer Carbonate 2,400 MG TIDAC 04/10 0800 AC 05/26 PO 1246 Sodium Polystyrene 60 ML QMON 05/21 0700 AC Sulfonate PO Sodium Polystyrene 60 ML QSUN 05/20 0700 AC Sulfonate PO Tiotropium [place] 1 PUF DAILY 04/10 1000 AC 05/26 INH 1247 Results Pertinent Lab Results: Laboratory Tests 05/26 05/24 0746 1145 Chemistry Sodium (137 - 145 mmol/L) 142 141 Potassium (3.5 - 5.1 mmol/L) 5.7 H 3.7 Chloride (98 - 107 mmol/L) 99 100 Carbon Dioxide (22 - 30 mmol/L) 24 30 Anion Gap (5 - 16) 19 H 12 BUN (9 - 20 mg/dL) 53 H 15 Creatinine (0.7 - 1.2 mg/dL) 8.0 *H 2.9 H Estimated GFR (>60 ml/min) 7 L 22 L BUN/Creatinine Ratio (7 - 25 %) 6.6 L 5.2 L Calcium (8.4 - 10.2 mg/dL) 8.7 8.6 Hematology CBC w Diff NO MAN DIFF REQ WBC (4.8 - 10.8 /CUMM) 8.8 RBC (4.70 - 6.10 /CUMM) 3.72 L Hgb (14.0 - 18.0 G/DL) 11.0 L Hct (42 - 52 %) 34.0 L MCV (80.0 - 94.0 FL) 91.4 MCH (27.0 - 31.0 PG) 29.5 MCHC (33.0 - 37.0 G/DL) 32.3 L RDW (11.5 - 14.5 %) 18.3 H Plt Count (130 - 400 /CUMM) 371 MPV (7.4 - 10.4 FL) 7.1 L Gran % (42.2 - 75.2 %) 64.3 Lymphocytes % (20.5 - 51.1 %) 19.8 L Monocytes % (1.7 - 9.3 %) 8.5 Eosinophils % (0 - 5 %) 6.5 H Basophils % (0.0 - 2.0 %) 0.9 Absolute Granulocytes (1.4 - 6.5 /CUMM) 5.6 Absolute Lymphocytes (1.2 - 3.4 /CUMM) 1.7 Absolute Monocytes (0.10 - 0.60 /CUMM) 0.7 H Absolute Eosinophils (0.0 - 0.7 /CUMM) 0.6 Absolute Basophils (0.0 - 0.2 /CUMM) 0.1 25 0700 Chemistry Sodium (137 - 145 mmol/L) 143 Potassium (3.5 - 5.1 mmol/L) 4.9 Chloride (98 - 107 mmol/L) 100 Carbon Dioxide (22 - 30 mmol/L) 25 Anion Gap (5 - 16) 18 H BUN (9 - 20 mg/dL) 54 H Creatinine (0.7 - 1.2 mg/dL) 8.2 *H Estimated GFR (>60 ml/min) 7 L BUN/Creatinine Ratio (7 - 25 %) 6.6 L Calcium (8.4 - 10.2 mg/dL) 8.1 L Phosphorus (2.5 - 4.5 mg/dL) 3.7 Magnesium (1.6 - 2.3 mg/dL) 2.1 Albumin (3.5 - 5.0 g/dL) 3.8 Hematology CBC w Diff NO MAN DIFF REQ WBC (4.8 - 10.8 /CUMM) 7.5 RBC (4.70 - 6.10 /CUMM) 3.48 L Hgb (14.0 - 18.0 G/DL) 10.3 L Hct (42 - 52 %) 31.6 L MCV (80.0 - 94.0 FL) 90.9 MCH (27.0 - 31.0 PG) 29.5 MCHC (33.0 - 37.0 G/DL) 32.5 L RDW (11.5 - 14.5 %) 17.3 H Plt Count (130 - 400 /CUMM) 364 MPV (7.4 - 10.4 FL) 7.0 L Gran % (42.2 - 75.2 %) 59.0 Lymphocytes % (20.5 - 51.1 %) 22.7 Monocytes % (1.7 - 9.3 %) 10.4 H Eosinophils % (0 - 5 %) 6.6 H Basophils % (0.0 - 2.0 %) 1.3 Absolute Granulocytes (1.4 - 6.5 /CUMM) 4.4 Absolute Lymphocytes (1.2 - 3.4 /CUMM) 1.7 Absolute Monocytes (0.10 - 0.60 /CUMM) 0.8 H Absolute Eosinophils (0.0 - 0.7 /CUMM) 0.5 Absolute Basophils (0.0 - 0.2 /CUMM) 0.1
--- NOTE | 2017-05-26 17:11 | PN- Att Addend ---
Attending Addendum Attending Brief Note Mr. Sanches has no complaints. His vital signs are stable as is his physical exam. Continues on chronic hemodialysis hear well he waits for an outpatient chair.
[2017-05-26 21:32] VITALS: BP 154/92
[2017-05-27 08:00] VITALS: BP 146/82
[2017-05-27 15:04] VITALS: BP 144/68
--- NOTE | 2017-05-27 15:42 | PN- Att Addend ---
Attending Addendum Attending Brief Note Mr. Sanches remains stable. He continues on Sunday hemodialysis. He has no complaints today. His vital signs are stable with a mild improvement in blood pressure today. His physical exam is unchanged. We are continuing his search for a hemodialysis chair.
[2017-05-27 22:03] VITALS: BP 140/62
[2017-05-28 06:02] VITALS: BP 160/90
--- NOTE | 2017-05-28 10:54 | PN- Att Addend ---
Attending Addendum Attending Brief Note No new issues patient laying in bed. Vital signs are stable no fever or changes on physical disposition plans continue on hemodialysis continue. Intake & Output 05/28 1600 05/28 0400 05/27 1600 05/27 0400 05/26 1600 05/26 0400 Intake Total 240 400 660 450 840 240 Output Total Balance 240 400 660 450 840 240 Intake, IV 0 0 Intake, Oral 240 400 660 450 840 240 Number 0 0 Bowel Movements Patient 206 lb 202 lb 214 lb Weight Weight Bed scale Bed scale Measurement Method Current Medications Sig/Grace Start time Last Medication Dose Route Stop Time Status Admin Acetaminophen 325 MG Q6-PRN PRN 04/09 2245 AC 05/25 PO 0612 Albuterol Sulfate 2 PUF Q4P PRN 04/09 2300 AC 05/17 INH 2002 Aripiprazole 400 MG Q30D 04/24 0900 AC 05/24 IM 1239 Aspirin Buffered 81 MG 0800 04/10 0800 AC 05/27 PO 0836 Atorvastatin Calcium 40 MG 1700 04/10 1700 AC 05/27 PO 1608 Benztropine Mesylate 0.5 MG BID 04/10 1000 AC 05/27 PO 2203 Cinacalcet 60 MG DAILY 05/18 1000 AC 05/27 PO 0837 Epoetin Florentino 8,000 UNIT TUES THURS SAT PRN 04/10 1500 AC 05/03 IV 1345 Furosemide 80 MG 0800,2200 04/10 0800 AC 05/27 PO 2203 Gabapentin 300 MG AT BEDTIME 04/10 0215 AC 05/27 PO 2203 Hydralazine HCl 20 MG TID 05/08 1100 AC 05/27 PO 220 Labetalol HCl 100 MG BID 04/10 1000 AC 05/27 PO 2204 Lactobacillus 1 CAP BID 05/24 2200 AC 05/27 Acidophilus PO 220 Lamotrigine 150 MG DAILY 04/22 1000 AC 05/27 PO 0838 Multivitamins 1 TAB 1000 04/10 1000 AC 05/27 PO 0838 Omeprazole 40 MG DAILY AC 04/20 1325 AC 05/28 PO 0605 Oxcarbazepine 600 MG BID 04/10 1000 AC 05/27 PO 2203 Propranolol HCl 10 MG BID 04/10 1000 AC 05/27 PO 220 Quetiapine Fumarate 400 MG AT BEDTIME 04/10 0215 AC 05/27 PO 2204 Sevelamer Carbonate 2,400 MG TIDAC 04/10 0800 AC 05/27 PO 1608 Sodium Polystyrene 60 ML QMON 05/21 0700 AC Sulfonate PO Sodium Polystyrene 60 ML QSUN 05/20 0700 AC 05/28 Sulfonate PO 0842 Tiotropium [place] 1 PUF DAILY 04/10 1000 AC 05/28 INH 0843 Laboratory Tests 05/26/17 0746: Anion Gap 19 H, Estimated GFR 7 L, BUN/Creatinine Ratio 6.6 L, Calcium 8.7, CBC w Diff NO MAN DIFF REQ, RBC 3.72 L, MCV 91.4, MCH 29.5, MCHC 32.3 L, RDW 18.3 H, MPV 7.1 L, Gran % 64.3, Lymphocytes % 19.8 L, Monocytes % 8.5, Eosinophils % 6.5 H, Basophils % 0.9, Absolute Granulocytes 5.6, Absolute Lymphocytes 1.7, Absolute Monocytes 0.7 H, Absolute Eosinophils 0.6, Absolute Basophils 0.1 Vital Signs Date Time Temp Pulse Resp B/P B/P Pulse O2 O2 Flow FiO2 Mean Ox Delivery Rate 05/28 0602 97.4 70 22 160/90 96 Room Air 05/27 220 70 140/62 05/27 2203 70 140/62 05/27 2203 70 140/62 05/27 2203 98.2 78 20 140/62 96 Room Air 05/27 1608 79 144/68 05/27 1504 98.3 79 20 144/ 97
[2017-05-28 14:37] VITALS: BP 150/80
[2017-05-28 22:35] VITALS: BP 144/76
[2017-05-29 06:34] VITALS: BP 146/82
--- NOTE | 2017-05-29 10:07 | PN- Att Addend ---
Attending Addendum Attending Brief Note No new complaints related hemodialysis in progress vital signs are stable with no new changes on physical to continue present treatment and station plans. Intake & Output 05/29 1600 05/29 0400 05/28 04005/27 040 Intake Total 240 240 840 400 660 450 Output Total Balance 240 240 840 400 660 450 Intake, IV 0 0 Intake, Oral 240 240 840 400 660 450 Number 0 0 Bowel Movements Patient 214 lb 206 lb 202 lb Weight Weight Bed scale Bed scale Measurement Method Vital Signs Date Time Temp Pulse Resp B/P B/P Pulse O2 O2 Flow FiO2 Mean Ox Delivery Rate 05/29 0634 98.2 79 18 146/82 96 05/28 2235 97.6 81 17 144/76 95 Room Air 05/28 2110 81 144/76 05/28 2109 81 144/76 05/28 2108 81 144/76 05/28 1437 97.4 75 20 150/80 97 Room Air 05/28 1214 160/90 05/28 1213 160/90 05/28 1213 160/90
[2017-05-29 10:27] LABS: ABSOLUTE BASOPHIL COUNT 0.1 /CUMM (0.0-0.2); ABSOLUTE EOSINOPHIL COUNT 0.4 /CUMM (0.0-0.7); ABSOLUTE GRANULOCYTE CT 4.7 /CUMM (1.4-6.5); ABSOLUTE LYMPH COUNT 1.1 /CUMM (1.2-3.4); ABSOLUTE MONOCYTE COUNT 0.8 /CUMM (0.10-0.60); EOSINOPHIL % 6.2 % (0-5); GRANULOCYTE % 65.3 % (42.2-75.2); HEMATOCRIT 32.3 % (42-52); MEAN CORPUSCULAR HGB CONC 33.2 G/DL (33.0-37.0); MEAN CORPUSCULAR VOLUME 90.4 FL (80.0-94.0); MEAN PLATELET VOLUME 7.2 FL (7.4-10.4); PLATELET COUNT 335 /CUMM (130-400); RBC DISTRIBUTION WIDTH 17.2 % (11.5-14.5); RED BLOOD CELL CT 3.57 /CUMM (4.70-6.10); WHITE BLOOD CELL COUNT 7.1 /CUMM (4.8-10.8)
--- NOTE | 2017-05-29 10:54 | PN- Nephrology ---
Assessment/Plan Assessment: ESRD awaiting conservatorship. On dialysis now. Suggestion: . Subjective Subjective: Pt on dialysis. Comfortable Objective Vital Signs and I&Os M NAD 146/82 79 98.2 Lungs clear Cor RRR Abd soft N/T Ext tr edema Results Pertinent Lab Results: Hg 10.7 Electrolytes pending.
[2017-05-29 14:10] VITALS: BP 128/80
[2017-05-29 17:05] VITALS: BP 152/102
[2017-05-29 22:38] VITALS: BP 148/72
[2017-05-30 06:07] VITALS: BP 132/64
--- NOTE | 2017-05-30 10:05 | PN- Att Addend ---
Attending Addendum Attending Brief Note Patient comfortable in bed, sitter at the bedside. Vital signs are stable no fever, no changes on physical. Disposition plans continue. Intake & Output 05/30 1600 05/30 0400 05/29 1600 05/29 0400 05/28 1600 05/28 0400 Intake Total 120 240 640 240 840 400 Output Total 5000 Balance 120 240 -4360 240 840 400 Intake, IV 0 0 Intake, Oral 120 240 640 240 840 400 Number 0 0 Bowel Movements Output, 5000 Dialysate Patient 206 lb 214 lb 206 lb Weight Weight Bed scale Measurement Method Current Medications Sig/Grace Start time Last Medication Dose Route Stop Time Status Admin Acetaminophen 325 MG Q6-PRN PRN 04/09 2245 AC 05/25 PO 0612 Albuterol Sulfate 2 PUF Q4P PRN 04/09 2300 AC 05/17 INH 2002 Aripiprazole 400 MG Q30D 04/24 0900 AC 05/24 IM 1239 Aspirin Buffered 81 MG 0800 04/10 0800 AC 05/30 PO 0756 Atorvastatin Calcium 40 MG 1700 04/10 1700 AC 05/29 PO 1710 Benztropine Mesylate 0.5 MG BID 04/10 1000 AC 05/30 PO 0936 Cinacalcet 60 MG DAILY 05/18 1000 AC 05/30 PO 0938 Epoetin Florent[place] 8,000 UNIT TUES THURS SAT PRN 04/10 1500 AC 05/03 IV 1345 Furosemide 80 MG 0800,2200 04/10 0800 AC 05/30 PO 0756 Gabapentin 300 MG AT BEDTIME 04/10 0215 AC 05/29 PO 2151 Hydralazine HCl 20 MG TID 05/08 1100 AC 05/30 PO 0935 Labetalol HCl 100 MG BID 04/10 1000 AC 05/30 PO 0937 Lactobacillus 1 CAP BID 05/24 2200 AC 05/30 Acidophilus PO 0943 Lamotrigine 150 MG DAILY 04/22 1000 AC 05/30 PO 0941 Multivitamins 1 TAB 1000 04/10 1000 AC 05/30 PO 0937 Omeprazole 40 MG DAILY AC 04/20 1325 AC 05/30 PO 0552 Oxcarbazepine 600 MG BID 04/10 1000 AC 05/30 PO 0937 Propranolol HCl 10 MG BID 04/10 1000 AC 05/30 PO 0936 Quetiapine Fumarate 400 MG AT BEDTIME 04/10 0215 AC 05/29 PO 2151 Sevelamer Carbonate 2,400 MG TIDAC 04/10 0800 AC 05/30 PO 0757 Sodium Polystyrene 60 ML QMON 05/21 0700 AC Sulfonate PO Sodium Polystyrene 60 ML QSUN 05/20 0700 AC 05/28 Sulfonate PO 0842 Tiotropium [place] 1 PUF DAILY 04/10 1000 AC 05/30 INH 0942 Laboratory Tests 05/29/17 0925: Anion Gap 20 H, Estimated GFR 5 L, BUN/Creatinine Ratio 7.9, Phosphorus 4.2, Magnesium 2.1, Albumin 3.9, CBC w Diff NO MAN DIFF REQ, RBC 3.57 L, MCV 90.4, MCH 30.0, MCHC 33.2, RDW 17.2 H, MPV 7.2 L, Gran % 65.3, Lymphocytes % 15.8 L , Monocytes % 11.7 H, Eosinophils % 6.2 H, Basophils % 1.0, Absolute Granulocytes 4.7, Absolute Lymphocytes 1.1 L, Absolute Monocytes 0.8 H, Absolute Eosinophils 0.4, Absolute Basophils 0.1 Vital Signs Date Time Temp Pulse Resp B/P B/P Pulse O2 O2 Flow FiO2 Mean Ox Delivery Rate 05/30 0937 79 132/64 05/30 0936 79 132/64 05/30 0935 79 132/64 05/30 0607 98.6 79 18 132/64 95 05/29 2238 99.1 88 18 148/72 95 Room Air 05/29 2151 88 148/72 05/29 2151 88 148/72 05/29 215 88 148/72 05/29 1707 80 152/102 05/29 1705 80 152/102 05/29 1410 98.1 82 20 128/80 96 05/29 1359 128/80
[2017-05-30 14:06] VITALS: BP 116/92
[2017-05-30 22:44] VITALS: BP 140/80
[2017-05-31 05:22] VITALS: BP 142/82
[2017-05-31 10:07] LABS: ABSOLUTE BASOPHIL COUNT 0.1 /CUMM (0.0-0.2); ABSOLUTE EOSINOPHIL COUNT 0.3 /CUMM (0.0-0.7); ABSOLUTE GRANULOCYTE CT 5.3 /CUMM (1.4-6.5); ABSOLUTE LYMPH COUNT 1.3 /CUMM (1.2-3.4); ABSOLUTE MONOCYTE COUNT 0.9 /CUMM (0.10-0.60); BASOPHIL % 0.9 % (0.0-2.0); EOSINOPHIL % 3.9 % (0-5); HEMATOCRIT 32.6 % (42-52); MEAN CORPUSCULAR HGB 29.6 PG (27.0-31.0); MEAN CORPUSCULAR HGB CONC 33.2 G/DL (33.0-37.0); MEAN PLATELET VOLUME 7.2 FL (7.4-10.4); PLATELET COUNT 314 /CUMM (130-400); RBC DISTRIBUTION WIDTH 17.7 % (11.5-14.5); RED BLOOD CELL CT 3.67 /CUMM (4.70-6.10)
--- NOTE | 2017-05-31 11:24 | PN- Att Addend ---
Attending Addendum Attending Brief Note No new complaints no dialysis in progress vital signs are stable no fever and no changes on physical sitter still with a patient with disposition plans continue. Intake & Output 05/31 1600 05/31 0400 05/30 1600 05/30 0400 05/29 1600 05/29 0400 Intake Total 240 480 480 240 640 240 Output Total 5000 Balance 240 480 480 240 -4360 240 Intake, IV 0 Intake, Oral 240 480 480 240 640 240 Number 0 0 Bowel Movements Output, 5000 Dialysate Patient 211 lb 206 lb 214 lb Weight Weight Bed scale Measurement Method Current Medications Sig/Grace Start time Last Medication Dose Route Stop Time Status Admin Acetaminophen 325 MG Q6-PRN PRN 04/09 2245 AC 05/25 PO 0612 Albuterol Sulfate 2 PUF Q4P PRN 04/09 2300 AC 05/17 INH 2002 Aripiprazole 400 MG Q30D 04/24 0900 AC 05/24 IM 1239 Aspirin Buffered 81 MG 0800 04/10 0800 AC 05/31 PO 0821 Atorvastatin Calcium 40 MG 1700 04/10 1700 AC 05/30 PO 1603 Benztropine Mesylate 0.5 MG BID 04/10 1000 AC 05/30 PO 212 Cinacalcet 60 MG DAILY 05/18 1000 AC 05/30 PO 0938 Epoetin [place]orent[place] 8,000 UNIT TUES THURS SAT PRN 04/10 1500 AC 05/03 IV 1345 Furosemide 80 MG 0800,2200 04/10 0800 AC 05/30 PO 212 Gabapentin 300 MG AT BEDTIME 04/10 0215 AC 05/30 PO 212 Hydralazine HCl 20 MG TID 05/08 1100 AC 05/30 PO 212 Labetalol HCl 100 MG BID 04/10 1000 AC 05/30 PO 2128 Lactobacillus 1 CAP BID 05/24 2200 AC 05/30 Acidophilus PO 2128 Lamotrigine 150 MG DAILY 04/22 1000 AC 05/30 PO 0941 Multivitamins 1 TAB 1000 04/10 1000 AC 05/30 PO 0937 Omeprazole 40 MG DAILY AC 04/20 1325 AC 05/31 PO 0523 Oxcarbazepine 600 MG BID 04/10 1000 AC 05/30 PO 2128 Propranolol HCl 10 MG BID 04/10 1000 AC 05/30 PO 212 Quetiapine Fumarate 400 MG AT BEDTIME 04/10 0215 AC 05/30 PO 2128 Sevelamer Carbonate 2,400 MG TIDAC 04/10 0800 AC 05/31 PO 0821 Sodium Polystyrene 60 ML QMON 05/21 0700 AC Sulfonate PO Sodium Polystyrene 60 ML QSUN 05/20 0700 AC 05/28 Sulfonate PO 0842 Tiotropium [place] 1 PUF DAILY 04/10 1000 AC 05/30 INH 0942 Laboratory Tests 05/31/17 0915: Anion Gap 20 H, Estimated GFR 6 L, BUN/Creatinine Ratio 7.2, Phosphorus 4.4, Magnesium 1.9, Albumin 4.1, CBC w Diff NO MAN DIFF REQ, RBC 3.67 L, MCV 89.0, MCH 29.6, MCHC 33.2, RDW 17.7 H, MPV 7.2 L, Gran % 67.0, Lymphocytes % 16.8 L , Monocytes % 11.4 H, Eosinophils % 3.9, Basophils % 0.9, Absolute Granulocytes 5.3, Absolute Lymphocytes 1.3, Absolute Monocytes 0.9 H, Absolute Eosinophils 0.3, Absolute Basophils 0.1 05/29/17924: Anion Gap 20 H, Estimated GFR 5 L, BUN/Creatinine Ratio 7.9, Phosphorus 4.2, Magnesium 2.1, Albumin 3.9, CBC w Diff NO MAN DIFF REQ, RBC 3.57 L, MCV 90.4, MCH 30.0, MCHC 33.2, RDW 17.2 H, MPV 7.2 L, Gran % 65.3, Lymphocytes % 15.8 L , Monocytes % 11.7 H, Eosinophils % 6.2 H, Basophils % 1.0, Absolute Granulocytes 4.7, Absolute Lymphocytes 1.1 L, Absolute Monocytes 0.8 H, Absolute Eosinophils 0.4, Absolute Basophils 0.1 Vital Signs Date Time Temp Pulse Resp B/P B/P Pulse O2 O2 Flow FiO2 Mean Ox Delivery Rate 05/31 0522 98.0 81 20 142/82 96 Room Air 05/30 2243 98.5 80 20 140/80 96 Room Air 05/30 2127 80 140/80 05/30 2127 80 140/80 05/30 2127 80 140/80 05/30 1602 84 116/92 05/30 1406 98.2 84 20 116/92 97
--- NOTE | 2017-05-31 15:02 | PN- Nephrology ---
Assessment/Plan Assessment: ESRD awaiting conservatorship. On dialysis now. Pt comfortable. No problems with HD Suggestion: . Subjective Subjective: Pt seen on dialysis comfortable Objective Vital Signs and I&Os M NAD 142/82 98 81 lungs claer Cor RRR Abd soft Ext neg edema Results Pertinent Lab Results: .
[2017-05-31 15:45] VITALS: BP 146/90
[2017-05-31 21:04] VITALS: BP 152/96
[2017-06-01 07:08] VITALS: BP 132/86
--- NOTE | 2017-06-01 11:12 | PN- Att Addend ---
Attending Addendum Attending Brief Note Patient offers no complaints. Shortness of breath or chest pain her vital signs are stable no fever and no changes on physical. Patient still has a Sitter. Disposition plans continue. Intake & Output 06/01 Intake Total 120 240 890 480 480 240 Output Total Balance 120 240 890 480 480 240 Intake, Oral 120 240 890 480 480 240 Number 0 Bowel Movements Patient 199 lb 211 lb 206 lb Weight Laboratory Tests 05/31/17 1317: 05/31/17 0915: Anion Gap 20 H, Estimated GFR 6 L, BUN/Creatinine Ratio 7.2, Phosphorus 4.4, Magnesium 1.9, Albumin 4.1, CBC w Diff NO MAN DIFF REQ, RBC 3.67 L, MCV 89.0, MCH 29.6, MCHC 33.2, RDW 17.7 H, MPV 7.2 L, Gran % 67.0, Lymphocytes % 16.8 L , Monocytes % 11.4 H, Eosinophils % 3.9, Basophils % 0.9, Absolute Granulocytes 5.3, Absolute Lymphocytes 1.3, Absolute Monocytes 0.9 H, Absolute Eosinophils 0.3, Absolute Basophils 0.1 Vital Signs Date Time Temp Pulse Resp B/P B/P Pulse O2 O2 Flow FiO2 Mean Ox Delivery Rate 06/01 923 142/82 06/01 0924 142/82 06/01 0924 142/82 06/01 0708 97.9 84 18 132/86 95 Room Air 05/31 210 80 152/96 05/31 210 80 152/96 05/31 210 80 52/96 05/31 2104 98.3 80 152/96 96 Room Air 05/31 1545 98.6 90 18 146/90 96 Room Air 05/31 1508 90 146/90
[2017-06-01 15:52] VITALS: BP 140/76
[2017-06-02 06:54] VITALS: BP 128/72
--- NOTE | 2017-06-02 08:59 | PN- Att Addend ---
Attending Addendum Attending Brief Note Hemodialysis in progress vital signs are stable no fever and no new changes on physical. Continue present treatments and consider disposition plans. Intake & Output 06/02 1600 06/02 0400 06/01 1600 06/01 0400 05/31 1600 05/31 0400 Intake Total 566 751 4514 240 890 480 Output Total Balance 113 114 8994 240 890 480 Intake, IV 0 Intake, Oral 514 038 9573 240 890 480 Number 0 Bowel Movements Patient 215 lb 199 lb 211 lb Weight Weight Chair scale Measurement Method Current Medications Sig/Grace Start time Last Medication Dose Route Stop Time Status Admin Acetaminophen 325 MG Q6-PRN PRN 04/09 2245 AC 05/25 PO 0612 Albuterol Sulfate 2 PUF Q4P PRN 04/09 2300 AC 05/17 INH 2002 Aripiprazole 400 MG Q30D 04/24 0900 AC 05/24 IM 1239 Aspirin Buffered 81 MG 0800 04/10 0800 AC 06/01 PO 0921 Atorvastatin Calcium 40 MG 1700 04/10 1700 AC 06/01 PO 170 Benztropine Mesylate 0.5 MG BID 04/10 1000 AC 06/01 PO 211 Cinacalcet 60 MG DAILY 05/18 1000 AC 06/01 PO 0926 Epoetin [place] 8,000 UNIT TUES THURS SAT PRN 04/10 1500 AC 05/03 IV 1345 Furosemide 80 MG 0800,2200 04/10 0800 AC 06/01 PO 211 Gabapentin 300 MG AT BEDTIME 04/10 0215 AC 06/01 PO 211 Hydralazine HCl 20 MG TID 05/08 1100 AC 06/01 PO 211 Labetalol HCl 100 MG BID 04/10 1000 AC 06/01 PO 211 Lactobacillus 1 CAP BID 05/24 2200 AC 06/01 Acidophilus PO 2117 Lamotrigine 150 MG DAILY 04/22 1000 AC 06/01 PO 09 Multivitamins 1 TAB 1000 04/10 1000 AC 06/01 PO 0926 Omeprazole 40 MG DAILY AC 04/20 1325 AC 06/02 PO 0630 Oxcarbazepine 600 MG BID 04/10 1000 AC 06/01 PO 211 Propranolol HCl 10 MG BID 04/10 1000 AC 06/01 PO 2120 Quetiapine Fumarate 400 MG AT BEDTIME 04/10 0215 AC 06/01 PO 211 Sevelamer Carbonate 2,400 MG TIDAC 04/10 0800 AC 06/01 PO 1704 Sodium Polystyrene 60 ML QMON 05/21 0700 AC Sulfonate PO Sodium Polystyrene 60 ML QSUN 05/20 0700 AC 05/28 Sulfonate PO 0842 Tiotropium [place] 1 PUF DAILY 04/10 1000 AC 06/01 INH 0925 Laboratory Tests 06/02/17 0735: Sodium Pending, Potassium Pending, Chloride Pending, Carbon Dioxide Pending, Anion Gap Pending, BUN Pending, Creatinine Pending, BUN/Creatinine Ratio Pending , Glucose Pending, Calcium Pending, CBC w Diff Pending, WBC Pending, RBC Pending , Hgb Pending, Hct Pending, MCV Pending, MCH Pending, MCHC Pending, RDW Pending, Plt Count Pending, MPV Pending 05/31/17 1317: 05/31/17 0915: Anion Gap 20 H, Estimated GFR 6 L, BUN/Creatinine Ratio 7.2, Phosphorus 4.4, Magnesium 1.9, Albumin 4.1, CBC w Diff NO MAN DIFF REQ, RBC 3.67 L, MCV 89.0, MCH 29.6, MCHC 33.2, RDW 17.7 H, MPV 7.2 L, Gran % 67.0, Lymphocytes % 16.8 L , Monocytes % 11.4 H, Eosinophils % 3.9, Basophils % 0.9, Absolute Granulocytes 5.3, Absolute Lymphocytes 1.3, Absolute Monocytes 0.9 H, Absolute Eosinophils 0.3, Absolute Basophils 0.1 Vital Signs Date Time Temp Pulse Resp B/P B/P Pulse O2 O2 Flow FiO2 Mean Ox Delivery Rate 06/02 0654 98.2 80 20 128/72 96 06/01 2119 74 140/76 06/01 2117 74 140/76 06/01 2116 74 140/76 06/01 1552 98.4 74 20 140/76 97 Room Air 06/01 923 14282 06/01 923 14206/01
[2017-06-02 09:00] LABS: ABSOLUTE BASOPHIL COUNT 0.1 /CUMM (0.0-0.2); ABSOLUTE EOSINOPHIL COUNT 0.5 /CUMM (0.0-0.7); ABSOLUTE GRANULOCYTE CT 4.8 /CUMM (1.4-6.5); ABSOLUTE LYMPH COUNT 1.4 /CUMM (1.2-3.4); ABSOLUTE MONOCYTE COUNT 1.1 /CUMM (0.10-0.60); BASOPHIL % 0.7 % (0.0-2.0); EOSINOPHIL % 6.1 % (0-5); HEMATOCRIT 36.3 % (42-52); MEAN CORPUSCULAR HGB 29.2 PG (27.0-31.0); MEAN CORPUSCULAR HGB CONC 32.2 G/DL (33.0-37.0); MEAN CORPUSCULAR VOLUME 90.7 FL (80.0-94.0); MEAN PLATELET VOLUME 7.4 FL (7.4-10.4); PLATELET COUNT 362 /CUMM (130-400); RBC DISTRIBUTION WIDTH 17.5 % (11.5-14.5); WHITE BLOOD CELL COUNT 7.8 /CUMM (4.8-10.8)
--- NOTE | 2017-06-02 10:40 | PN- Nephrology ---
Assessment/Plan Assessment: 1. ESRD: HD in progress Suggestion: Next HD Tu Subjective Subjective: No complaints Objective Vital Signs and I&Os Vital Signs Date Time Temp Pulse Resp B/P B/P Pulse O2 O2 Flow FiO2 Mean Ox Delivery Rate 06/02 0654 98.2 80 20 128/72 96 06/01 2120 74 140/76 06/01 2117 74 140/76 06/01 2116 74 140/76 06/01 1552 98.4 74 20 140/76 97 Room Air Intake & Output 06/02 0400 06/01 1600 06/01 04005/31 1600 05/31 0400 Intake Total 902 399 4336 240 890 480 Output Total Balance 700 056 2294 240 890 480 Intake, IV 0 Intake, Oral 329 308 4360 240 890 480 Number 0 Bowel Movements Patient 215 lb 199 lb 211 lb Weight Weight Chair scale Measurement Method Physical Exam General Appearance: alert, awake Head: normal appearance Ears, Nose, Throat: normal ENT inspection Neck: normal inspection Respiratory: normal breath sounds Cardiovascular: regular rate/rhythm Abdomen: soft, non-tender Extremities: no edema Current Medications: Current Medications Sig/Grace Start time Last Medication Dose Route Stop Time Status Admin Acetaminophen 325 MG Q6-PRN PRN 04/09 2245 AC 05/25 PO 0612 Albuterol Sulfate 2 PUF Q4P PRN 04/09 2300 AC 05/17 INH 2002 Aripiprazole 400 MG Q30D 04/24 0900 AC 05/24 IM 1239 Aspirin Buffered 81 MG 0800 04/10 0800 AC 06/01 PO 0921 Atorvastatin Calcium 40 MG 1700 04/10 1700 AC 06/01 PO 170 Benztropine Mesylate 0.5 MG BID 04/10 1000 AC 06/01 PO 211 Cinacalcet 60 MG DAILY 05/18 1000 AC 06/01 PO 0926 Epoetin [place] 8,000 UNIT TUES THURS SAT PRN 04/10 1500 AC 05/03 IV 1345 Furosemide 80 MG 0800,04/10 0800 AC 06/01 PO 211 Gabapentin 300 MG AT BEDTIME 04/10 0215 AC 06/01 PO 211 Hydralazine HCl 20 MG TID 05/08 1100 AC 06/01 PO 211 Labetalol HCl 100 MG BID 04/10 1000 AC 06/01 PO 211 Lactobacillus 1 CAP BID 05/24 2200 AC 06/01 Acidophilus PO 2117 Lamotrigine 150 MG DAILY 04/22 1000 AC 06/01 PO 09 Multivitamins 1 TAB 1000 04/10 1000 AC 06/01 PO 0926 Omeprazole 40 MG DAILY AC 04/20 1325 AC 06/02 PO 0630 Oxcarbazepine 600 MG BID 04/10 1000 AC 06/01 PO 211 Propranolol HCl 10 MG BID 04/10 1000 AC 06/01 PO 2120 Quetiapine Fumarate 400 MG AT BEDTIME 04/10 0215 AC 06/01 PO 211 Sevelamer Carbonate 2,400 MG TIDAC 04/10 0800 AC 06/01 PO 1704 Sodium Polystyrene 60 ML QMON 05/21 0700 AC Sulfonate PO Sodium Polystyrene 60 ML QSUN 05/20 0700 AC 05/28 Sulfonate PO 0842 Tiotropium [place] 1 PUF DAILY 04/10 1000 AC 06/01 INH 0925 Results Pertinent Lab Results: Laboratory Tests 06/02 05/31 0735 1317 Chemistry Sodium (137 - 145 mmol/L) 142 Potassium (3.5 - 5.1 mmol/L) 5.0 Chloride (98 - 107 mmol/L) 99 Carbon Dioxide (22 - 30 mmol/L) 22 Anion Gap (5 - 16) 22 H BUN (9 - 20 mg/dL) 66 H 19 Creatinine (0.7 - 1.2 mg/dL) 9.2 *H Estimated GFR (>60 ml/min) 6 L BUN/Creatinine Ratio (7 - 25 %) 7.2 Glucose (65 - 99 mg/dL) 79 Calcium (8.4 - 10.2 mg/dL) 8.1 L Hematology CBC w Diff NO MAN DIFF REQ WBC (4.8 - 10.8 /CUMM) 7.8 RBC (4.70 - 6.10 /CUMM) 4.00 L Hgb (14.0 - 18.0 G/DL) 11.7 L Hct (42 - 52 %) 36.3 L MCV (80.0 - 94.0 FL) 90.7 MCH (27.0 - 31.0 PG) 29.2 MCHC (33.0 - 37.0 G/DL) 32.2 L RDW (11.5 - 14.5 %) 17.5 H Plt Count (130 - 400 /CUMM) 362 MPV (7.4 - 10.4 FL) 7.4 Gran % (42.2 - 75.2 %) 61.0 Lymphocytes % (20.5 - 51.1 %) 18.0 L Monocytes % (1.7 - 9.3 %) 14.2 H Eosinophils % (0 - 5 %) 6.1 H Basophils % (0.0 - 2.0 %) 0.7 Absolute Granulocytes (1.4 - 6.5 /CUMM) 4.8 Absolute Lymphocytes (1.2 - 3.4 /CUMM) 1.4 Absolute Monocytes (0.10 - 0.60 /CUMM) 1.1 H Absolute Eosinophils (0.0 - 0.7 /CUMM) 0.5 Absolute Basophils (0.0 - 0.2 /CUMM) 0.1 05/31 0915 Chemistry Sodium (137 - 145 mmol/L) 140 Potassium (3.5 - 5.1 mmol/L) 4.9 Chloride (98 - 107 mmol/L) 97 L Carbon Dioxide (22 - 30 mmol/L) 23 Anion Gap (5 - 16) 20 H BUN (9 - 20 mg/dL) 70 H Creatinine (0.7 - 1.2 mg/dL) 9.7 *H Estimated GFR (>60 ml/min) 6 L BUN/Creatinine Ratio (7 - 25 %) 7.2 Phosphorus (2.5 - 4.5 mg/dL) 4.4 Magnesium (1.6 - 2.3 mg/dL) 1.9 Albumin (3.5 - 5.0 g/dL) 4.1 Hematology CBC w Diff NO MAN DIFF REQ WBC (4.8 - 10.8 /CUMM) 8.0 RBC (4.70 - 6.10 /CUMM) 3.67 L Hgb (14.0 - 18.0 G/DL) 10.8 L Hct (42 - 52 %) 32.6 L MCV (80.0 - 94.0 FL) 89.0 MCH (27.0 - 31.0 PG) 29.6 MCHC (33.0 - 37.0 G/DL) 33.2 RDW (11.5 - 14.5 %) 17.7 H Plt Count (130 - 400 /CUMM) 314 MPV (7.4 - 10.4 FL) 7.2 L Gran % (42.2 - 75.2 %) 67.0 Lymphocytes % (20.5 - 51.1 %) 16.8 L Monocytes % (1.7 - 9.3 %) 11.4 H Eosinophils % (0 - 5 %) 3.9 Basophils % (0.0 - 2.0 %) 0.9 Absolute Granulocytes (1.4 - 6.5 /CUMM) 5.3 Absolute Lymphocytes (1.2 - 3.4 /CUMM) 1.3 Absolute Monocytes (0.10 - 0.60 /CUMM) 0.9 H Absolute Eosinophils (0.0 - 0.7 /CUMM) 0.3 Absolute Basophils (0.0 - 0.2 /CUMM) 0.1
[2017-06-02 14:43] VITALS: BP 120/68
[2017-06-02 23:16] VITALS: BP 122/72
--- NOTE | 2017-06-03 14:06 | PN- Att Addend ---
Attending Addendum Attending Brief Note Patient laying in bed sitter at the bedside. Patient "wants to go home" vital signs are stable no fever no new changes on physical, continue present treatment and still working on disposition plans Intake & Output 06/03 1600 06/03 0400 06/02 1600 06/02 0400 06/01 1600 06/01 0400 Intake Total 450 450 658 207 3152 240 Output Total 300 Balance 150 450 241 993 3247 240 Intake, IV 0 Intake, Oral 450 450 907 761 0250 240 Number 1 0 Bowel Movements Output, Urine 300 Patient 203 lb 215 lb 199 lb Weight Weight Chair scale Measurement Method Current Medications Sig/Grace Start time Last Medication Dose Route Stop Time Status Admin Acetaminophen 325 MG Q6-PRN PRN 04/09 2245 AC 05/25 PO 0612 Albuterol Sulfate 2 PUF Q4P PRN 04/09 2300 AC 05/17 INH 2002 Aripiprazole 400 MG Q30D 04/24 0900 AC 05/24 IM 1239 Aspirin Buffered 81 MG 0800 04/10 0800 AC 06/03 PO 0748 Atorvastatin Calcium 40 MG 1700 04/10 1700 AC 06/02 PO 1610 Benztropine Mesylate 0.5 MG BID 04/10 1000 AC 06/03 PO 0910 Cinacalcet 60 MG DAILY 05/18 1000 AC 06/03 PO 0914 Epoetin [place] 8,000 UNIT TUES THURS SAT PRN 04/10 1500 AC 05/03 IV 1345 Furosemide 80 MG 0800,2200 04/10 0800 AC 06/03 PO 0749 Gabapentin 300 MG AT BEDTIME 04/10 0215 AC 06/02 PO 2106 Hydralazine HCl 20 MG TID 05/08 1100 AC 06/03 PO 0908 Labetalol HCl 100 MG BID 04/10 1000 AC 06/03 PO 0911 Lactobacillus 1 CAP BID 05/24 2200 AC 06/03 Acidophilus PO 0910 Lamotrigine 150 MG DAILY 04/22 1000 AC 06/03 PO 0913 Multivitamins 1 TAB 1000 04/10 1000 AC 06/03 PO 0910 Omeprazole 40 MG DAILY AC 04/20 1325 AC 06/03 PO 0545 Oxcarbazepine 600 MG BID 04/10 1000 AC 06/03 PO 0911 Propranolol HCl 10 MG BID 04/10 1000 AC 06/03 PO 0909 Quetiapine Fumarate 400 MG AT BEDTIME 04/10 0215 AC 06/02 PO 2106 Sevelamer Carbonate 2,400 MG TIDAC 04/10 0800 AC 06/03 PO 1401 Sodium Polystyrene 60 ML QMON 05/21 0700 AC Sulfonate PO Sodium Polystyrene 60 ML QSUN 05/20 0700 AC 06/03 Sulfonate PO 0545 Tiotropium [place] 1 PUF DAILY 04/10 1000 AC 06/03 INH 0916 Laboratory Tests 06/02/17 0735: Anion Gap 22 H, Estimated GFR 6 L, BUN/Creatinine Ratio 7.2, Glucose 79, Calcium 8.1 L, CBC w Diff NO MAN DIFF REQ, RBC 4.00 L, MCV 90.7, MCH 29.2, MCHC 32.2 L, RDW 17.5 H, MPV 7.4, Gran % 61.0, Lymphocytes % 18.0 L, Monocytes % 14.2 H, Eosinophils % 6.1 H, Basophils % 0.7, Absolute Granulocytes 4.8, Absolute Lymphocytes 1.4, Absolute Monocytes 1.1 H, Absolute Eosinophils 0.5, Absolute Basophils 0.1 Vital Signs Date Time Temp Pulse Resp B/P B/P Pulse O2 O2 Flow FiO2 Mean Ox Delivery Rate 06/03 0911 80 122/72 / 0909 80 122/72 / 0908 80 122/72 /03 2316 97.8 80 20 122/72 95 Room Air 06/02 2108 82 138/70 / 2108 82 138/70 / 210 82 138/70 02/03 1610 84 132/74 02/03 1443 97.9 81 20 120/68 96 Room Air
[2017-06-03 14:24] VITALS: BP 120/76
[2017-06-03 21:12] VITALS: BP 140/64
[2017-06-04 06:08] VITALS: BP 138/84
--- NOTE | 2017-06-04 10:48 | PN- Att Addend ---
Attending Addendum Attending Brief Note No new complaints the patient wants to go home or get out of the hospital. Sitter at the bedside vital signs stable no fever no new changes on physical. Continue present treatment hemodialysis in disposition plans. Intake & Output 06/04 1600 06/04 0400 06/03 1600 06/03 0400 06/02 1600 06/02 0400 Intake Total 810 450 700 250 Output Total 300 Balance 510 450 700 250 Intake, Oral 810 450 700 250 Number 1 1 Bowel Movements Output, Urine 300 Patient 207 lb 203 lb 215 lb Weight Weight Chair scale Measurement Method Current Medications Sig/Grace Start time Last Medication Dose Route Stop Time Status Admin Acetaminophen 325 MG Q6-PRN PRN 04/09 2245 AC 05/25 PO 0612 Albuterol Sulfate 2 PUF Q4P PRN 04/09 2300 AC 05/17 INH 2002 Aripiprazole 400 MG Q30D 04/24 0900 AC 05/24 IM 1239 Aspirin Buffered 81 MG 0800 04/10 0800 AC 06/04 PO 0831 Atorvastatin Calcium 40 MG 1700 04/10 1700 AC 06/03 PO 1609 Benztropine Mesylate 0.5 MG BID 04/10 1000 AC 06/04 PO 1019 Cinacalcet 60 MG DAILY 05/18 1000 AC 06/04 PO 1022 Epoetin [place] 8,000 UNIT TUES THURS SAT PRN 04/10 1500 AC 05/03 IV 1345 Furosemide 80 MG 0800,2200 04/10 0800 AC 06/04 PO 0828 Gabapentin 300 MG AT BEDTIME 04/10 0215 AC 06/03 PO 2154 Hydralazine HCl 20 MG TID 05/08 1100 AC 06/04 PO 1020 Labetalol HCl 100 MG BID 04/10 1000 AC 06/04 PO 1021 Lactobacillus 1 CAP BID 05/24 2200 AC 06/04 Acidophilus PO 1020 Lamotrigine 150 MG DAILY 04/22 1000 AC 06/04 PO 1023 Multivitamins 1 TAB 1000 04/10 1000 AC 06/04 PO 1020 Omeprazole 40 MG DAILY AC 04/20 1325 AC 06/04 PO 0830 Oxcarbazepine 600 MG BID 04/10 1000 AC 06/04 PO 1019 Propranolol HCl 10 MG BID 04/10 1000 AC 06/04 PO 1021 Quetiapine Fumarate 400 MG AT BEDTIME 04/10 0215 AC 06/03 PO 2154 Sevelamer Carbonate 2,400 MG TIDAC 04/10 0800 AC 06/04 PO 0829 Sodium Polystyrene 60 ML QMON 05/21 0700 AC 06/04 Sulfonate PO 0517 Sodium Polystyrene 60 ML QSUN 05/20 0700 AC 06/03 Sulfonate PO 0545 Tiotropium [place] 1 PUF DAILY 04/10 1000 AC 06/04 INH 1017 Laboratory Tests 06/02/17 0735: Anion Gap 22 H, Estimated GFR 6 L, BUN/Creatinine Ratio 7.2, Glucose 79, Calcium 8.1 L, CBC w Diff NO MAN DIFF REQ, RBC 4.00 L, MCV 90.7, MCH 29.2, MCHC 32.2 L, RDW 17.5 H, MPV 7.4, Gran % 61.0, Lymphocytes % 18.0 L, Monocytes % 14.2 H, Eosinophils % 6.1 H, Basophils % 0.7, Absolute Granulocytes 4.8, Absolute Lymphocytes 1.4, Absolute Monocytes 1.1 H, Absolute Eosinophils 0.5, Absolute Basophils 0.1 Vital Signs Date Time Temp Pulse Resp B/P B/P Pulse O2 O2 Flow FiO2 Mean Ox Delivery Rate 06/04 1021 74 138/84 02/ 1021 74 138/84 02/ 1020 74 138/84 02/05 0608 97.4 74 22 138/84 94 Room Air 06/03 215 86 140/64 02/ 2155 86 140/64 / 215 86 140/64 02/04 2112 98.0 86 20 140/64 96 Room Air / 1608 83 120/76 02/04 1424 99.0 83 20 120/76 96 Room Air
[2017-06-04 13:48] VITALS: BP 140/70
[2017-06-04 22:52] VITALS: BP 146/89
[2017-06-05 06:15] VITALS: BP 163/90
[2017-06-05 08:29] LABS: ABSOLUTE BASOPHIL COUNT 0.1 /CUMM (0.0-0.2); ABSOLUTE EOSINOPHIL COUNT 0.5 /CUMM (0.0-0.7); ABSOLUTE GRANULOCYTE CT 5.4 /CUMM (1.4-6.5); ABSOLUTE LYMPH COUNT 1.7 /CUMM (1.2-3.4); ABSOLUTE MONOCYTE COUNT 0.8 /CUMM (0.10-0.60); BASOPHIL % 0.7 % (0.0-2.0); EOSINOPHIL % 6.2 % (0-5); GRANULOCYTE % 63.6 % (42.2-75.2); HEMATOCRIT 33.3 % (42-52); MEAN CORPUSCULAR HGB 29.2 PG (27.0-31.0); MEAN CORPUSCULAR HGB CONC 32.7 G/DL (33.0-37.0); MEAN CORPUSCULAR VOLUME 89.4 FL (80.0-94.0); PLATELET COUNT 376 /CUMM (130-400); RBC DISTRIBUTION WIDTH 16.9 % (11.5-14.5); RED BLOOD CELL CT 3.72 /CUMM (4.70-6.10); WHITE BLOOD CELL COUNT 8.4 /CUMM (4.8-10.8)
--- NOTE | 2017-06-05 09:49 | PN- Nephrology ---
Assessment/Plan Assessment: ESRD on dialysis. no problems with HD. Suggestion: . Subjective Subjective: Pt on dialysis comfortable Objective Vital Signs and I&Os M NAD 163/90 98 97 Lungs clear Cor RRR Abd soft Ext neg edema Results Pertinent Lab Results: Laboratory Tests 06/05 0735 Chemistry Sodium (137 - 145 mmol/L) 142 Potassium (3.5 - 5.1 mmol/L) 5.0 Chloride (98 - 107 mmol/L) 99 Carbon Dioxide (22 - 30 mmol/L) 23 Anion Gap (5 - 16) 19 H BUN (9 - 20 mg/dL) 71 H Creatinine (0.7 - 1.2 mg/dL) 10.7 *H Estimated GFR (>60 ml/min) 5 L BUN/Creatinine Ratio (7 - 25 %) 6.6 L Calcium (8.4 - 10.2 mg/dL) 7.9 L Hematology CBC w Diff NO MAN DIFF REQ WBC (4.8 - 10.8 /CUMM) 8.4 RBC (4.70 - 6.10 /CUMM) 3.72 L Hgb (14.0 - 18.0 G/DL) 10.9 L Hct (42 - 52 %) 33.3 L MCV (80.0 - 94.0 FL) 89.4 MCH (27.0 - 31.0 PG) 29.2 MCHC (33.0 - 37.0 G/DL) 32.7 L RDW (11.5 - 14.5 %) 16.9 H Plt Count (130 - 400 /CUMM) 376 MPV (7.4 - 10.4 FL) 7.0 L Gran % (42.2 - 75.2 %) 63.6 Lymphocytes % (20.5 - 51.1 %) 20.3 L Monocytes % (1.7 - 9.3 %) 9.2 Eosinophils % (0 - 5 %) 6.2 H Basophils % (0.0 - 2.0 %) 0.7 Absolute Granulocytes (1.4 - 6.5 /CUMM) 5.4 Absolute Lymphocytes (1.2 - 3.4 /CUMM) 1.7 Absolute Monocytes (0.10 - 0.60 /CUMM) 0.8 H Absolute Eosinophils (0.0 - 0.7 /CUMM) 0.5 Absolute Basophils (0.0 - 0.2 /CUMM) 0.1
--- NOTE | 2017-06-05 10:13 | PN- Att Addend ---
Attending Addendum Attending Brief Note No new complaints. Patient having his hemodialysis today her vital signs are stable no fever no new changes on physical. Continue disposition plans, continue the sitter Intake & Output 06/05 1600 06/05 0400 06/04 1600 06/04 0400 06/03 1600 06/03 0400 Intake Total 240 360 380 810 450 Output Total 300 Balance 240 360 380 510 450 Intake, Oral 240 360 380 810 450 Number 1 1 Bowel Movements Output, Urine 300 Patient 216 lb 207 lb 203 lb Weight Weight Bed scale Measurement Method Current Medications Sig/Grace Start time Last Medication Dose Route Stop Time Status Admin Acetaminophen 325 MG Q6-PRN PRN 04/09 2245 AC 05/25 PO 0612 Albuterol Sulfate 2 PUF Q4P PRN 04/09 2300 AC 05/17 INH 2002 Aripiprazole 400 MG Q30D 04/24 0900 AC 05/24 IM 1239 Aspirin Buffered 81 MG 0800 04/10 0800 AC 06/04 PO 0831 Atorvastatin Calcium 40 MG 1700 04/10 1700 AC 06/04 PO 1754 Benztropine Mesylate 0.5 MG BID 04/10 1000 AC 06/04 PO 2130 Cinacalcet 60 MG DAILY 05/18 1000 AC 06/04 PO 1022 Epoetin [place] 8,000 UNIT TUES THURS SAT PRN 04/10 1500 AC 05/03 IV 1345 Furosemide 80 MG 0800,2200 04/10 0800 AC 06/04 PO 2132 Gabapentin 300 MG AT BEDTIME 04/10 0215 AC 06/04 PO 2131 Hydralazine HCl 20 MG TID 05/08 1100 AC 06/04 PO 2131 Labetalol HCl 100 MG BID 04/10 1000 AC 06/04 PO 2131 Lactobacillus 1 CAP BID 05/24 2200 AC 06/04 Acidophilus PO 2130 Lamotrigine 150 MG DAILY 04/22 1000 AC 06/04 PO 1023 Multivitamins 1 TAB 1000 04/10 1000 AC 06/04 PO 1020 Omeprazole 40 MG DAILY AC 04/20 1325 AC 06/05 PO 0433 Oxcarbazepine 600 MG BID 04/10 1000 AC 06/04 PO 2131 Propranolol HCl 10 MG BID 04/10 1000 AC 06/04 PO 2132 Quetiapine Fumarate 400 MG AT BEDTIME 04/10 0215 AC 06/04 PO 2131 Sevelamer Carbonate 2,400 MG TIDAC 04/10 0800 AC 02 PO 1754 Sodium Polystyrene 60 ML QMON 05/21 0700 AC 06/04 Sulfonate PO 0517 Sodium Polystyrene 60 ML QSUN 05/20 0700 AC 06/03 Sulfonate PO 0545 Tiotropium [place] 1 PUF DAILY 04/10 1000 AC 06/04 INH 1017 Laboratory Tests 06/05/17 0735: Anion Gap 19 H, Estimated GFR 5 L, BUN/Creatinine Ratio 6.6 L, Calcium 7.9 L , CBC w Diff NO MAN DIFF REQ, RBC 3.72 L, MCV 89.4, MCH 29.2, MCHC 32.7 L, RDW 16.9 H, MPV 7.0 L, Gran % 63.6, Lymphocytes % 20.3 L, Monocytes % 9.2, Eosinophils % 6.2 H, Basophils % 0.7, Absolute Granulocytes 5.4, Absolute Lymphocytes 1.7, Absolute Monocytes 0.8 H, Absolute Eosinophils 0.5, Absolute Basophils 0.1 Vital Signs Date Time Temp Pulse Resp B/P B/P Pulse O2 O2 Flow FiO2 Mean Ox Delivery Rate 06/05 0615 97.5 98 18 163/90 98 Room Air 06/04 2252 97.5 89 18 146/89 98 Room Air 06/04 213 89 146/89 06/04 213 89 146/89 06/04 2131 89 146/89 06/04 1755 72 140/70 02 1348 98.1 72 20 140/70 97 Room Air 06/04 1021 74 138/84 02 1021 74 138/84 06/04 1020 74 138/84
[2017-06-05 12:30] VITALS: BP 150/88
[2017-06-05 21:58] VITALS: BP 162/92
[2017-06-06 06:17] VITALS: BP 162/100
--- NOTE | 2017-06-06 13:01 | PN- Att Addend ---
Attending Addendum Attending Brief Note No new issues, vital signs are stable, no fever. No changes on physical her to continue hemodialysis treatment times a week continue the sitter and continue disposition plans issue would like to go home have to check again with conservator, meeting is set tomorrow to see what updates we have
[2017-06-06 14:54] VITALS: BP 156/94
[2017-06-06 22:33] VITALS: BP 138/88
[2017-06-07 06:59] VITALS: BP 119/85
--- NOTE | 2017-06-07 08:43 | PN- Nephrology ---
Assessment/Plan Assessment: ESRD on dialysis. no problems with HD. Suggestion: . Subjective Subjective: Pt on dialysis now. Has some nausea this morning Objective Vital Signs and I&Os M NAD 119/85 73 97.7 Lungs clear Cor RRR Abd soft N/T Ext neg edema DATA Results Pertinent Lab Results: Laboratory Tests 06/05 0735 Chemistry Sodium (137 - 145 mmol/L) 142 Potassium (3.5 - 5.1 mmol/L) 5.0 Chloride (98 - 107 mmol/L) 99 Carbon Dioxide (22 - 30 mmol/L) 23 Anion Gap (5 - 16) 19 H BUN (9 - 20 mg/dL) 71 H Creatinine (0.7 - 1.2 mg/dL) 10.7 *H Estimated GFR (>60 ml/min) 5 L BUN/Creatinine Ratio (7 - 25 %) 6.6 L Calcium (8.4 - 10.2 mg/dL) 7.9 L Hematology CBC w Diff NO MAN DIFF REQ WBC (4.8 - 10.8 /CUMM) 8.4 RBC (4.70 - 6.10 /CUMM) 3.72 L Hgb (14.0 - 18.0 G/DL) 10.9 L Hct (42 - 52 %) 33.3 L MCV (80.0 - 94.0 FL) 89.4 MCH (27.0 - 31.0 PG) 29.2 MCHC (33.0 - 37.0 G/DL) 32.7 L RDW (11.5 - 14.5 %) 16.9 H Plt Count (130 - 400 /CUMM) 376 MPV (7.4 - 10.4 FL) 7.0 L Gran % (42.2 - 75.2 %) 63.6 Lymphocytes % (20.5 - 51.1 %) 20.3 L Monocytes % (1.7 - 9.3 %) 9.2 Eosinophils % (0 - 5 %) 6.2 H Basophils % (0.0 - 2.0 %) 0.7 Absolute Granulocytes (1.4 - 6.5 /CUMM) 5.4 Absolute Lymphocytes (1.2 - 3.4 /CUMM) 1.7 Absolute Monocytes (0.10 - 0.60 /CUMM) 0.8 H Absolute Eosinophils (0.0 - 0.7 /CUMM) 0.5 Absolute Basophils (0.0 - 0.2 /CUMM) 0.1
[2017-06-07 09:10] LABS: ABSOLUTE BASOPHIL COUNT 0 /CUMM (0.0-0.2); ABSOLUTE EOSINOPHIL COUNT 0.4 /CUMM (0.0-0.7); ABSOLUTE GRANULOCYTE CT 4.6 /CUMM (1.4-6.5); ABSOLUTE LYMPH COUNT 1.5 /CUMM (1.2-3.4); ABSOLUTE MONOCYTE COUNT 0.6 /CUMM (0.10-0.60); BASOPHIL % 0.5 % (0.0-2.0); EOSINOPHIL % 5.3 % (0-5); GRANULOCYTE % 65.1 % (42.2-75.2); MEAN CORPUSCULAR HGB CONC 32.5 G/DL (33.0-37.0); MEAN CORPUSCULAR VOLUME 89.2 FL (80.0-94.0); MEAN PLATELET VOLUME 6.7 FL (7.4-10.4); PLATELET COUNT 381 /CUMM (130-400); RBC DISTRIBUTION WIDTH 16.4 % (11.5-14.5); RED BLOOD CELL CT 3.81 /CUMM (4.70-6.10); WHITE BLOOD CELL COUNT 7.1 /CUMM (4.8-10.8)
--- NOTE | 2017-06-07 10:58 | PN- Att Addend ---
Attending Addendum Attending Brief Note Hemodialysis in progress him a no new issues vital signs are stable, no fever and no changes on physical. Continue present treatment and continued disposition plans. Intake & Output 06/07 1600 06/07 0400 06/06 1600 06/06 0400 06/05 1600 06/05 0400 Intake Total 240 240 720 480 720 360 Output Total 3000 Balance 240 240 720 480 -2280 360 Intake, Oral 240 240 720 480 720 360 Output, 3000 Dialysate Patient 181 lb 218 lb Weight Weight Bed scale Standing Scale Measurement Method Current Medications Sig/Grace Start time Last Medication Dose Route Stop Time Status Admin Acetaminophen 325 MG Q6-PRN PRN 04/09 2245 AC 05/25 PO 0612 Albuterol Sulfate 2 PUF Q4P PRN 04/09 2300 AC 05/17 INH 2002 Aripiprazole 400 MG Q30D 04/24 0900 AC 05/24 IM 1239 Aspirin Buffered 81 MG 0800 04/10 0800 AC 06/06 PO 0850 Atorvastatin Calcium 40 MG 1700 04/10 1700 AC 06/06 PO 1737 Benztropine Mesylate 0.5 MG BID 04/10 1000 AC 06/06 PO 2148 Cinacalcet 60 MG DAILY 05/18 1000 AC 06/06 PO 1038 Epoetin [place] 8,000 UNIT TUES THURS SAT PRN 04/10 1500 AC 05/03 IV 1345 Furosemide 80 MG 0800,2200 04/10 0800 AC 06/06 PO 2148 Gabapentin 300 MG AT BEDTIME 04/10 0215 AC 06/06 PO 2148 Hydralazine HCl 20 MG TID 05/08 1100 AC 06/06 PO 2148 Labetalol HCl 100 MG BID 04/10 1000 AC 06/06 PO 2147 Lactobacillus 1 CAP BID 05/24 2200 AC 06/06 Acidophilus PO 2148 Lamotrigine 150 MG DAILY 04/22 1000 AC 06/06 PO 1038 Multivitamins 1 TAB 1000 04/10 1000 AC 06/06 PO 1039 Omeprazole 40 MG DAILY AC 04/20 1325 AC 06/07 PO 0512 Oxcarbazepine 600 MG BID 04/10 1000 AC 06/06 PO 2147 Propranolol HCl 10 MG BID 04/10 1000 AC 06/06 PO 2148 Quetiapine Fumarate 400 MG AT BEDTIME 04/10 0215 AC 06/06 PO 2148 Sevelamer Carbonate 2,400 MG TIDAC 04/10 0800 AC 06/07 PO 0838 Sodium Polystyrene 60 ML QMON 05/21 07 AC 06/04 Sulfonate PO 0517 Sodium Polystyrene 60 ML QSUN 05/20 07 AC 06/03 Sulfonate PO 0545 Tiotropium [place] 1 PUF DAILY 04/10 1000 AC 06/06 INH 1322 Laboratory Tests 06/07/17 0753: Anion Gap 19 H, Estimated GFR 6 L, BUN/Creatinine Ratio 7.0, Glucose 82, Calcium 7.8 L, Phosphorus 5.0 H, Magnesium 2.1, Albumin 3.7, CBC w Diff NO MAN DIFF REQ, RBC 3.81 L, MCV 89.2, MCH 29.0, MCHC 32.5 L, RDW 16.4 H, MPV 6.7 L , Gran % 65.1, Lymphocytes % 21.2, Monocytes % 7.9, Eosinophils % 5.3 H, Basophils % 0.5, Absolute Granulocytes 4.6, Absolute Lymphocytes 1.5, Absolute Monocytes 0.6, Absolute Eosinophils 0.4, Absolute Basophils 0 06/05/17 0735: Anion Gap 19 H, Estimated GFR 5 L, BUN/Creatinine Ratio 6.6 L, Calcium 7.9 L , CBC w Diff NO MAN DIFF REQ, RBC 3.72 L, MCV 89.4, MCH 29.2, MCHC 32.7 L, RDW 16.9 H, MPV 7.0 L, Gran % 63.6, Lymphocytes % 20.3 L, Monocytes % 9.2, Eosinophils % 6.2 H, Basophils % 0.7, Absolute Granulocytes 5.4, Absolute Lymphocytes 1.7, Absolute Monocytes 0.8 H, Absolute Eosinophils 0.5, Absolute Basophils 0.1 Vital Signs Date Time Temp Pulse Resp B/P B/P Pulse O2 O2 Flow FiO2 Mean Ox Delivery Rate 06/07 658 97.7 73 18 119/85 98 Room Air 06/06 2232 98.5 75 20 138/88 97 Room Air 06/06 2147 13888 06/06 2147 138/88 06/06 2146 13806/06 1737 84 160/92 06/06 1454 97.7 82 20 156/94 96 Room Air
[2017-06-07 14:00] VITALS: BP 154/88
[2017-06-07 22:37] VITALS: BP 129/94
[2017-06-08 06:30] VITALS: BP 135/87
--- NOTE | 2017-06-08 10:59 | PN- Att Addend ---
Attending Addendum Attending Brief Note No new issues. No shortness of breath no chest pain patient ambulating okay. Vital signs are stable no fever no changes on physical examination. Consider still at the site. Disposition plans continue Intake & Output 06/08 1600 06/08 0400 06/07 1600 06/07 0400 06/06 1600 06/06 0400 Intake Total 480 240 840 240 720 480 Output Total Balance 480 240 840 240 720 480 Intake, Oral 480 240 840 240 720 480 Patient 210 lb 198 lb Weight Weight Bed scale Bed scale Measurement Method Current Medications Sig/Grace Start time Last Medication Dose Route Stop Time Status Admin Acetaminophen 325 MG Q6-PRN PRN 04/09 2245 AC 05/25 PO 06 Albuterol Sulfate 2 PUF Q4P PRN 04/09 2300 AC 05/17 INH 2002 Aripiprazole 400 MG Q30D 04/24 0900 AC 05/24 IM 1239 Aspirin Buffered 81 MG 0800 04/10 0800 AC 06/07 PO 1344 Atorvastatin Calcium 40 MG 1700 04/10 1700 AC 06/07 PO 170 Benztropine Mesylate 0.5 MG BID 04/10 1000 AC 06/07 PO 202 Cinacalcet 60 MG DAILY 05/18 1000 AC 06/07 PO 1345 Epoetin [place] 8,000 UNIT TUES THURS SAT PRN 04/10 1500 AC 05/03 IV 1345 Furosemide 80 MG 0800,2200 04/10 0800 AC 06/07 PO 2020 Gabapentin 300 MG AT BEDTIME 04/10 0215 AC 06/07 PO 2020 Hydralazine HCl 20 MG TID 05/08 1100 AC 06/07 PO 2020 Labetalol HCl 100 MG BID 04/10 1000 AC 06/07 PO 2020 Lactobacillus 1 CAP BID 05/24 2200 AC 06/07 Acidophilus PO 2019 Lamotrigine 150 MG DAILY 04/22 1000 AC 06/07 PO 1345 Multivitamins 1 TAB 1000 04/10 1000 AC 06/07 PO 1342 Omeprazole 40 MG DAILY AC 04/20 1325 AC 06/08 PO 0441 Oxcarbazepine 600 MG BID 04/10 1000 AC 06/07 PO 2020 Propranolol HCl 10 MG BID 04/10 1000 AC 06/07 PO 202 Quetiapine Fumarate 400 MG AT BEDTIME 04/10 0215 AC 06/07 PO 2020 Sevelamer Carbonate 2,400 MG TIDAC 04/10 0800 AC 06/07 PO 1701 Sodium Polystyrene 60 ML QMON 05/21 0700 AC 06/04 Sulfonate PO 0517 Sodium Polystyrene 60 ML QSUN 05/20 0700 AC 06/03 Sulfonate PO 0545 Tiotropium [place] 1 PUF DAILY 04/10 1000 AC 06/07 INH 1347 Laboratory Tests 06/07/17 1205: 06/07/17 0753: Anion Gap 19 H, Estimated GFR 6 L, BUN/Creatinine Ratio 7.0, Glucose 82, Calcium 7.8 L, Phosphorus 5.0 H, Magnesium 2.1, Albumin 3.7, CBC w Diff NO MAN DIFF REQ, RBC 3.81 L, MCV 89.2, MCH 29.0, MCHC 32.5 L, RDW 16.4 H, MPV 6.7 L , Gran % 65.1, Lymphocytes % 21.2, Monocytes % 7.9, Eosinophils % 5.3 H, Basophils % 0.5, Absolute Granulocytes 4.6, Absolute Lymphocytes 1.5, Absolute Monocytes 0.6, Absolute Eosinophils 0.4, Absolute Basophils 0 Vital Signs Date Time Temp Pulse Resp B/P B/P Pulse O2 O2 Flow FiO2 Mean Ox Delivery Rate 06/08 629 98.6 84 18 135/87 98 Room Air 06/07 2236 98.5 79 18 129/94 99 Room Air 06/07 2020 166/94 06/07 2020 166/94 06/07 2019 16694 06/07 1701 80 166/94 06/07 1400 78 20 154/88 96 Room Air Room Air 06/07 1343 78 144/88 06/07 1342 78 144/88 06/07 1341 78 144/88
[2017-06-08 14:34] VITALS: BP 161/74
[2017-06-08 21:39] VITALS: BP 150/86
[2017-06-09 06:10] VITALS: BP 146/88
--- NOTE | 2017-06-09 12:07 | PN- Nephrology ---
Assessment/Plan Assessment: Stable for dialysis. Suggestion: UF 2-3 liters with dialysis today. Subjective Subjective: No new complaints, due for dialysis later today. Objective Vital Signs and I&Os Vital Signs Date Time Temp Pulse Resp B/P B/P Pulse O2 O2 Flow FiO2 Mean Ox Delivery Rate 06/09 609 97.9 75 20 146/88 97 06/08 215 83 150/86 06/08 215 83 150/86 06/08 215 83 150/86 06/08 2139 97.8 83 20 150/86 96 06/08 1722 84 160/74 06/08 1434 98.4 78 18 161/74 97 Room Air Intake & Output 06/09 1600 06/09 0400 06/08 1600 06/08 0400 06/07 1600 06/07 0400 Intake Total 1200 240 840 240 Output Total Balance 1200 240 840 240 Intake, Oral 1200 240 840 240 Patient 210 lb 210 lb 198 lb Weight Weight Bed scale Bed scale Bed scale Measurement Method Physical Exam: NAD VS as above Lungs: clear CV: no rub Exts 1+ edema, good bruit LA AVF Neuro: A&O Current Medications: Current Medications Sig/Grace Start time Last Medication Dose Route Stop Time Status Admin Acetaminophen 325 MG Q6-PRN PRN 04/09 2245 AC 05/25 PO 06 Albuterol Sulfate 2 PUF Q4P PRN 04/09 2300 AC 05/17 INH 2002 Aripiprazole 400 MG Q30D 04/24 0900 AC 05/24 IM 1239 Aspirin Buffered 81 MG 0800 04/10 0800 AC 06/08 PO 1148 Atorvastatin Calcium 40 MG 1700 04/10 1700 AC 06/08 PO 1722 Benztropine Mesylate 0.5 MG BID 04/10 1000 AC 06/08 PO 2154 Cinacalcet 60 MG DAILY 05/18 1000 AC 06/08 PO 1148 Epoetin [place] 8,000 UNIT TUES THURS SAT PRN 04/10 1500 AC 05/03 IV 1345 Furosemide 80 MG 0800,2200 04/10 0800 AC 06/08 PO 2153 Gabapentin 300 MG AT BEDTIME 04/10 0215 AC 06/08 PO 2153 Hydralazine HCl 20 MG TID 05/08 1100 AC 06/08 PO 2154 Labetalol HCl 100 MG BID 04/10 1000 AC 06/08 PO 2153 Lactobacillus 1 CAP BID 05/24 2200 AC 06/08 Acidophilus PO 215 Lamotrigine 150 MG DAILY 04/22 1000 AC 06/08 PO 1149 Multivitamins 1 TAB 1000 04/10 1000 AC 06/08 PO 1147 Omeprazole 40 MG DAILY AC 04/20 1325 AC 06/09 PO 0430 Oxcarbazepine 600 MG BID 04/10 1000 AC 06/08 PO 215 Propranolol HCl 10 MG BID 04/10 1000 AC 06/08 PO 215 Quetiapine Fumarate 400 MG AT BEDTIME 04/10 0215 AC 06/08 PO 2153 Sevelamer Carbonate 2,400 MG TIDAC 04/10 0800 AC 06/09 PO 0802 Sodium Polystyrene 60 ML QMON 05/21 0700 AC 06/04 Sulfonate PO 0517 Sodium Polystyrene 60 ML QSUN 05/20 0700 AC 06/03 Sulfonate PO 0545 Tiotropium [place] 1 PUF DAILY 04/10 1000 AC 06/09 INH 0431 Results Pertinent Lab Results: Laboratory Tests 06/07 06/07 1205 0753 Chemistry Sodium (137 - 145 mmol/L) 139 Potassium (3.5 - 5.1 mmol/L) 4.9 Chloride (98 - 107 mmol/L) 94 L Carbon Dioxide (22 - 30 mmol/L) 26 Anion Gap (5 - 16) 19 H BUN (9 - 20 mg/dL) 18 62 H Creatinine (0.7 - 1.2 mg/dL) 8.9 *H Estimated GFR (>60 ml/min) 6 L BUN/Creatinine Ratio (7 - 25 %) 7.0 Glucose (65 - 99 mg/dL) 82 Calcium (8.4 - 10.2 mg/dL) 7.8 L Phosphorus (2.5 - 4.5 mg/dL) 5.0 H Magnesium (1.6 - 2.3 mg/dL) 2.1 Albumin (3.5 - 5.0 g/dL) 3.7 Hematology CBC w Diff NO MAN DIFF REQ WBC (4.8 - 10.8 /CUMM) 7.1 RBC (4.70 - 6.10 /CUMM) 3.81 L Hgb (14.0 - 18.0 G/DL) 11.1 L Hct (42 - 52 %) 34.0 L MCV (80.0 - 94.0 FL) 89.2 MCH (27.0 - 31.0 PG) 29.0 MCHC (33.0 - 37.0 G/DL) 32.5 L RDW (11.5 - 14.5 %) 16.4 H Plt Count (130 - 400 /CUMM) 381 MPV (7.4 - 10.4 FL) 6.7 L Gran % (42.2 - 75.2 %) 65.1 Lymphocytes % (20.5 - 51.1 %) 21.2 Monocytes % (1.7 - 9.3 %) 7.9 Eosinophils % (0 - 5 %) 5.3 H Basophils % (0.0 - 2.0 %) 0.5 Absolute Granulocytes (1.4 - 6.5 /CUMM) 4.6 Absolute Lymphocytes (1.2 - 3.4 /CUMM) 1.5 Absolute Monocytes (0.10 - 0.60 /CUMM) 0.6 Absolute Eosinophils (0.0 - 0.7 /CUMM) 0.4 Absolute Basophils (0.0 - 0.2 /CUMM) 0
--- NOTE | 2017-06-09 12:50 | PN- Att Addend ---
Attending Addendum Attending Brief Note Mr. Sanches was interviewed and examined. His EMR was reviewed. He has no complaints. He remains afebrile with stable vital signs. He is in no acute distress. Lung and heart exams are benign. He is scheduled for her routine hemodialysis today. We are continuing in her search for disposition.
[2017-06-09 15:02] LABS: ABSOLUTE BASOPHIL COUNT 0 /CUMM (0.0-0.2); ABSOLUTE EOSINOPHIL COUNT 0.4 /CUMM (0.0-0.7); ABSOLUTE GRANULOCYTE CT 4.9 /CUMM (1.4-6.5); ABSOLUTE MONOCYTE COUNT 0.7 /CUMM (0.10-0.60); EOSINOPHIL % 5.6 % (0-5); GRANULOCYTE % 61.4 % (42.2-75.2); MEAN CORPUSCULAR HGB 29.5 PG (27.0-31.0); MEAN CORPUSCULAR HGB CONC 33.2 G/DL (33.0-37.0); MEAN CORPUSCULAR VOLUME 88.7 FL (80.0-94.0); MEAN PLATELET VOLUME 6.8 FL (7.4-10.4); PLATELET COUNT 393 /CUMM (130-400); RED BLOOD CELL CT 3.72 /CUMM (4.70-6.10); WHITE BLOOD CELL COUNT 7.9 /CUMM (4.8-10.8)
[2017-06-09 15:03] LABS: ABSOLUTE LYMPH COUNT 1.8 /CUMM (1.2-3.4); BASOPHIL % 0.6 % (0.0-2.0)
[2017-06-09 19:38] VITALS: BP 144/88
[2017-06-09 21:51] VITALS: BP 140/90
[2017-06-10 07:19] VITALS: BP 138/84
--- NOTE | 2017-06-10 13:49 | PN- Att Addend ---
Attending Addendum Attending Brief Note Mr. Sanches remains stable. We are continuing a bed search.
[2017-06-10 14:57] VITALS: BP 146/78
[2017-06-10 21:49] VITALS: BP 142/82
[2017-06-11 07:10] VITALS: BP 136/82
[2017-06-11 13:47] VITALS: BP 142/88
--- NOTE | 2017-06-11 14:52 | PN- Att Addend ---
Attending Addendum Attending Brief Note Mr. Yuan was interviewed and examined. His EMR was reviewed. He has no complaints today. He specifically denies constitutional, cardiac, and respiratory symptoms. He remains afebrile. Heart and respiratory rates are satisfactory. Systolic blood pressures in the 140 to 150 range. He is oxygenating satisfactorily on room air. In no acute distress. Pulmonary exam reveals equal breath sounds and is without rales, rhonchi, or wheezes. Cardiac exam reveals a regular rate and rhythm. Abdominal and extremity exams are benign. He has no laboratory determinations to review. We are continuing to search for hemodialysis chair. We are continuing his maintenance medications and his periodic hemodialysis.
[2017-06-11 21:48] VITALS: BP 132/64
[2017-06-12 06:11] VITALS: BP 160/72
[2017-06-12 08:50] LABS: ABSOLUTE BASOPHIL COUNT 0.1 /CUMM (0.0-0.2); ABSOLUTE EOSINOPHIL COUNT 0.4 /CUMM (0.0-0.7); ABSOLUTE GRANULOCYTE CT 5.2 /CUMM (1.4-6.5); ABSOLUTE LYMPH COUNT 1.7 /CUMM (1.2-3.4); ABSOLUTE MONOCYTE COUNT 0.8 /CUMM (0.10-0.60); BASOPHIL % 0.8 % (0.0-2.0); EOSINOPHIL % 5.2 % (0-5); HEMATOCRIT 33.2 % (42-52); MEAN CORPUSCULAR HGB 29.4 PG (27.0-31.0); MEAN CORPUSCULAR HGB CONC 32.9 G/DL (33.0-37.0); MEAN CORPUSCULAR VOLUME 89.5 FL (80.0-94.0); MEAN PLATELET VOLUME 6.9 FL (7.4-10.4); PLATELET COUNT 373 /CUMM (130-400); RBC DISTRIBUTION WIDTH 16.6 % (11.5-14.5); RED BLOOD CELL CT 3.71 /CUMM (4.70-6.10); WHITE BLOOD CELL COUNT 8.3 /CUMM (4.8-10.8)
--- NOTE | 2017-06-12 09:59 | PN- Nephrology ---
Assessment/Plan Assessment: 1. ESRD: HD in progress Suggestion: Next HD Thur Subjective Subjective: No complaints Still awaiting placement Objective Vital Signs and I&Os Vital Signs Date Time Temp Pulse Resp B/P B/P Pulse O2 O2 Flow FiO2 Mean Ox Delivery Rate 06/12 610 97.6 84 20 160/72 97 06/11 2148 98.2 89 20 132/64 96 Room Air 06/11 2031 86 160/80 06/11 2030 86 160/80 06/11 2030 86 160/80 06/11 1740 77 142/88 06/11 1347 98.5 77 20 142/88 95 06/11 1053 86 154/94 06/11 1053 86 154/94 06/11 1052 86 154/94 Intake & Output 06/12 1600 06/12 0400 06/11 1600 06/11 0400 06/10 1600 06/10 0400 Intake Total 240 240 962 830 8521 120 Output Total Balance 240 240 728 247 2425 120 Intake, IV 0 0 0 0 Intake, Oral 240 240 415 938 4140 120 Number 0 1 0 0 Bowel Movements Patient 209 lb 204 lb 192 lb 215 lb Weight Weight Bed scale Standing Scale Measurement Method Physical Exam General Appearance: well developed/nourished, no apparent distress Head: atraumatic, normal appearance Neck: normal inspection Respiratory: lungs clear Cardiovascular: regular rate/rhythm Abdomen: soft, non-tender Extremities: no edema Neurologic/Psychiatric: awake, alert, oriented x 3 Current Medications: Current Medications Sig/Grace Start time Last Medication Dose Route Stop Time Status Admin Acetaminophen 325 MG Q6-PRN PRN 04/09 2245 AC 05/25 PO 0612 Albuterol Sulfate 2 PUF Q4P PRN 04/09 2300 AC 05/17 INH 2002 Aripiprazole 400 MG Q30D 04/24 0900 AC 05/24 IM 1239 Aspirin Buffered 81 MG 0800 04/10 0800 AC 06/11 PO 0848 Atorvastatin Calcium 40 MG 1700 04/10 1700 AC 06/11 PO 1739 Benztropine Mesylate 0.5 MG BID 04/10 1000 AC 06/11 PO 2031 Cinacalcet 60 MG DAILY 05/18 1000 AC 06/11 PO 1053 Epoetin [place] 8,000 UNIT TUES THURS SAT PRN 04/10 1500 AC 05/03 IV 1345 Furosemide 80 MG 0800,2200 04/10 0800 AC 06/11 PO 2030 Gabapentin 300 MG AT BEDTIME 04/10 0215 AC 06/11 PO 2030 Hydralazine HCl 20 MG TID 05/08 1100 AC 06/11 PO 2030 Labetalol HCl 100 MG BID 04/10 1000 AC 06/11 PO 203 Lactobacillus 1 CAP BID 05/24 2200 AC 06/11 Acidophilus PO 2030 Lamotrigine 150 MG DAILY 04/22 1000 AC 06/11 PO 105 Multivitamins 1 TAB 1000 04/10 1000 AC 06/11 PO 1053 Omeprazole 40 MG DAILY AC 04/20 1325 AC 06/12 PO 0604 Oxcarbazepine 600 MG BID 04/10 1000 AC 06/11 PO 203 Propranolol HCl 10 MG BID 04/10 1000 AC 06/11 PO 2030 Quetiapine Fumarate 400 MG AT BEDTIME 04/10 0215 AC 06/11 PO 2030 Sevelamer Carbonate 2,400 MG TIDAC 04/10 0800 AC 06/11 PO 1739 Sodium Polystyrene 60 ML QMON 05/21 0700 AC 06/11 Sulfonate PO 0642 Sodium Polystyrene 60 ML QSUN 05/20 0700 AC 06/10 Sulfonate PO 0534 Tiotropium [place] 1 PUF DAILY 04/10 1000 AC 06/11 INH 1052 Results Pertinent Lab Results: Laboratory Tests 06/12 06/09 0815 1415 Chemistry Sodium (137 - 145 mmol/L) 139 136 L Potassium (3.5 - 5.1 mmol/L) 4.9 5.4 H Chloride (98 - 107 mmol/L) 95 L 95 L Carbon Dioxide (22 - 30 mmol/L) 27 24 Anion Gap (5 - 16) 18 H 18 H BUN (9 - 20 mg/dL) 73 H 69 H Creatinine (0.7 - 1.2 mg/dL) 9.7 *H 9.0 *H Estimated GFR (>60 ml/min) 6 L 6 L BUN/Creatinine Ratio (7 - 25 %) 7.5 7.7 Glucose (65 - 99 mg/dL) 102 H Calcium (8.4 - 10.2 mg/dL) 8.0 L 8.0 L Hematology CBC w Diff NO MAN DIFF REQ NO MAN DIFF REQ WBC (4.8 - 10.8 /CUMM) 8.3 7.9 RBC (4.70 - 6.10 /CUMM) 3.71 L 3.72 L Hgb (14.0 - 18.0 G/DL) 10.9 L 10.9 L Hct (42 - 52 %) 33.2 L 33.0 L MCV (80.0 - 94.0 FL) 89.5 88.7 MCH (27.0 - 31.0 PG) 29.4 29.5 MCHC (33.0 - 37.0 G/DL) 32.9 L 33.2 RDW (11.5 - 14.5 %) 16.6 H 17.0 H Plt Count (130 - 400 /CUMM) 373 393 MPV (7.4 - 10.4 FL) 6.9 L 6.8 L Gran % (42.2 - 75.2 %) 63.0 61.4 Lymphocytes % (20.5 - 51.1 %) 20.7 23.1 Monocytes % (1.7 - 9.3 %) 10.3 H 9.3 Eosinophils % (0 - 5 %) 5.2 H 5.6 H Basophils % (0.0 - 2.0 %) 0.8 0.6 Absolute Granulocytes (1.4 - 6.5 /CUMM) 5.2 4.9 Absolute Lymphocytes (1.2 - 3.4 /CUMM) 1.7 1.8 Absolute Monocytes (0.10 - 0.60 /CUMM) 0.8 H 0.7 H Absolute Eosinophils (0.0 - 0.7 /CUMM) 0.4 0.4 Absolute Basophils (0.0 - 0.2 /CUMM) 0.1 0 Serology Hep Bs Antigen (NONREACTIVE) NONREACTIVE Hep Bs Antibody (NONREACTIVE) NONREACTIVE
[2017-06-12 12:47] VITALS: BP 140/80
--- NOTE | 2017-06-12 13:22 | PN- Att Addend ---
Attending Addendum Attending Brief Note No new issues, hemodialysis in progress with vital signs are stable no fever, no new changes on physical. Continue present treatments and disposition plans continue. Intake & Output 06/12 1600 06/12 0400 06/11 1600 06/11 0400 06/10 1600 06/10 0400 Intake Total 240 240 145 138 0593 120 Output Total Balance 240 240 827 779 0964 120 Intake, IV 0 0 0 0 Intake, Oral 240 240 697 380 4774 120 Number 0 1 0 0 Bowel Movements Patient 210 lb 204 lb 192 lb 215 lb Weight Weight Bed scale Standing Scale Measurement Method Current Medications Sig/Grace Start time Last Medication Dose Route Stop Time Status Admin Acetaminophen 325 MG Q6-PRN PRN 04/09 2245 AC 05/25 PO 06 Albuterol Sulfate 2 PUF Q4P PRN 04/09 2300 AC 05/17 INH 2002 Aripiprazole 400 MG Q30D 04/24 0900 AC 05/24 IM 1239 Aspirin Buffered 81 MG 0800 04/10 0800 AC 06/11 PO 0848 Atorvastatin Calcium 40 MG 1700 04/10 1700 AC 06/11 PO 1739 Benztropine Mesylate 0.5 MG BID 04/10 1000 AC 06/11 PO 203 Cinacalcet 60 MG DAILY 05/18 1000 AC 06/11 PO 1053 Epoetin [place] 8,000 UNIT TUES THURS SAT PRN 04/10 1500 AC 05/03 IV 1345 Furosemide 80 MG 0800,2200 04/10 0800 AC 06/11 PO 203 Gabapentin 300 MG AT BEDTIME 04/10 0215 AC 06/11 PO 203 Hydralazine HCl 20 MG TID 05/08 1100 AC 06/11 PO 203 Labetalol HCl 100 MG BID 04/10 1000 AC 06/11 PO 203 Lactobacillus 1 CAP BID 05/24 2200 AC 06/11 Acidophilus PO 203 Lamotrigine 150 MG DAILY 04/22 1000 AC 06/11 PO 1054 Multivitamins 1 TAB 1000 04/10 1000 AC 06/11 PO 105 Omeprazole 40 MG DAILY AC 04/20 1325 AC 06/12 PO 0604 Oxcarbazepine 600 MG BID 04/10 1000 AC 06/11 PO 203 Propranolol HCl 10 MG BID 04/10 1000 AC 06/11 PO 203 Quetiapine Fumarate 400 MG AT BEDTIME 12/12 0215 AC 06/11 PO 2031 Sevelamer Carbonate 2,400 MG TIDAC 04/10 0800 AC 06/11 PO 1739 Sodium Polystyrene 60 ML QMON 05/21 0700 AC 06/11 Sulfonate PO 0642 Sodium Polystyrene 60 ML QSUN 05/20 0700 AC 06/10 Sulfonate PO 0534 Tiotropium [place] 1 PUF DAILY 04/10 1000 AC 06/11 INH 1052 Laboratory Tests 06/12/17 0815: Anion Gap 18 H, Estimated GFR 6 L, BUN/Creatinine Ratio 7.5, Calcium 8.0 L, CBC w Diff NO MAN DIFF REQ, RBC 3.71 L, MCV 89.5, MCH 29.4, MCHC 32.9 L, RDW 16.6 H, MPV 6.9 L, Gran % 63.0, Lymphocytes % 20.7, Monocytes % 10.3 H, Eosinophils % 5.2 H, Basophils % 0.8, Absolute Granulocytes 5.2, Absolute Lymphocytes 1.7, Absolute Monocytes 0.8 H, Absolute Eosinophils 0.4, Absolute Basophils 0.1, Hep Bs Antigen NONREACTIVE, Hep Bs Antibody NONREACTIVE 06/09/17 1415: Anion Gap 18 H, Estimated GFR 6 L, BUN/Creatinine Ratio 7.7, Glucose 102 H, Calcium 8.0 L, CBC w Diff NO MAN DIFF REQ, RBC 3.72 L, MCV 88.7, MCH 29.5, MCHC 33.2, RDW 17.0 H, MPV 6.8 L, Gran % 61.4, Lymphocytes % 23.1, Monocytes % 9.3, Eosinophils % 5.6 H, Basophils % 0.6, Absolute Granulocytes 4.9, Absolute Lymphocytes 1.8, Absolute Monocytes 0.7 H, Absolute Eosinophils 0.4, Absolute Basophils 0
[2017-06-12 23:32] VITALS: BP 160/90
[2017-06-13 06:56] VITALS: BP 164/111
--- NOTE | 2017-06-13 09:57 | PN- Att Addend ---
Attending Addendum Attending Brief Note No new issues. Vital signs are stable no fever and no changes on physical disposition plans still in the works continue present treatment, the sitter and hemodialysis 3 times a week. Intake & Output 06/13 1600 06/13 0400 06/12 1600 06/12 0400 06/11 1600 06/11 0400 Intake Total 480 720 480 240 780 120 Output Total 0 0 Balance 480 720 480 240 780 120 Intake, IV 0 0 Intake, Oral 480 720 480 240 780 120 Number 0 0 1 Bowel Movements Output, Urine 0 0 Patient 218 lb 210 lb 204 lb Weight Weight Standing Scale Bed scale Measurement Method Current Medications Sig/Grace Start time Last Medication Dose Route Stop Time Status Admin Acetaminophen 325 MG Q6-PRN PRN 04/09 2245 AC 06/12 PO 1643 Albuterol Sulfate 2 PUF Q4P PRN 04/09 2300 AC 05/17 INH 2002 Aripiprazole 400 MG Q30D 04/24 0900 AC 05/24 IM 1239 Aspirin Buffered 81 MG 0800 04/10 0800 AC 06/13 PO 0822 Atorvastatin Calcium 40 MG 1700 04/10 1700 AC 06/12 PO 1640 Benztropine Mesylate 0.5 MG BID 04/10 1000 AC 06/13 PO 0931 Cinacalcet 60 MG DAILY 05/18 1000 AC 06/13 PO 0932 Epoetin [place] 8,000 UNIT TUES THURS SAT PRN 04/10 1500 AC 05/03 IV 1345 Furosemide 80 MG 0800,2200 04/10 0800 AC 06/13 PO 0822 Gabapentin 300 MG AT BEDTIME 04/10 021 AC 06/12 PO 2129 Hydralazine HCl 20 MG TID 05/08 1100 AC 06/13 PO 0932 Labetalol HCl 100 MG BID 04/10 1000 AC 06/13 PO 0931 Lactobacillus 1 CAP BID 05/24 2200 AC 06/13 Acidophilus PO 0931 Lamotrigine 150 MG DAILY 04/22 1000 AC 06/13 PO 0932 Multivitamins 1 TAB 1000 04/10 1000 AC 06/13 PO 0931 Omeprazole 40 MG DAILY AC 04/20 1325 AC 06/13 PO 0417 Oxcarbazepine 600 MG BID 04/10 1000 AC 06/13 PO 0931 Propranolol HCl 10 MG BID 04/10 1000 AC 06/13 PO 0931 Quetiapine Fumarate 400 MG AT BEDTIME 04/10 0215 AC 06/12 PO 2129 Sevelamer Carbonate 2,400 MG TIDAC 04/10 0800 AC 06/13 PO 0822 Sodium Polystyrene 60 ML QMON 05/21 0700 AC 06/11 Sulfonate PO 0642 Sodium Polystyrene 60 ML QSUN 05/20 0700 AC 06/10 Sulfonate PO 0534 Tiotropium [place] 1 PUF DAILY 04/10 1000 AC 06/13 INH 0932 Laboratory Tests 06/12/17 0815: Anion Gap 18 H, Estimated GFR 6 L, BUN/Creatinine Ratio 7.5, Calcium 8.0 L, CBC w Diff NO MAN DIFF REQ, RBC 3.71 L, MCV 89.5, MCH 29.4, MCHC 32.9 L, RDW 16.6 H, MPV 6.9 L, Gran % 63.0, Lymphocytes % 20.7, Monocytes % 10.3 H, Eosinophils % 5.2 H, Basophils % 0.8, Absolute Granulocytes 5.2, Absolute Lymphocytes 1.7, Absolute Monocytes 0.8 H, Absolute Eosinophils 0.4, Absolute Basophils 0.1, Hep Bs Antigen NONREACTIVE, Hep Bs Antibody NONREACTIVE Vital Signs Date Time Temp Pulse Resp B/P B/P Pulse O2 O2 Flow FiO2 Mean Ox Delivery Rate 06/13 0932 138/90 06/13 0931 13890 06/13 0931 13890 06/13 0656 98.3 74 18 164/111 99 Room Air 06/12 2332 97.5 85 18 160/90 97 Room Air 06/12 2130 160/90 06/12 2130 160/90 06/12 2130 160/90 06/12 1641 72 140/80 06/12 1339 72 140/80 06/12 1339 72 140/80 06/12 1339 72 140/80 06/12 1247 98.1 72 18 140/80
[2017-06-13 13:53] VITALS: BP 160/98
[2017-06-13 20:13] VITALS: BP 157/93
[2017-06-13 22:13] VITALS: BP 158/98
[2017-06-14 06:37] VITALS: BP 166/100
[2017-06-14 07:30] VITALS: BP 160/90
[2017-06-14 09:02] LABS: ABSOLUTE BASOPHIL COUNT 0.1 /CUMM (0.0-0.2); ABSOLUTE EOSINOPHIL COUNT 0.5 /CUMM (0.0-0.7); ABSOLUTE GRANULOCYTE CT 5.7 /CUMM (1.4-6.5); ABSOLUTE LYMPH COUNT 1.5 /CUMM (1.2-3.4); ABSOLUTE MONOCYTE COUNT 0.5 /CUMM (0.10-0.60); BASOPHIL % 0.9 % (0.0-2.0); EOSINOPHIL % 5.6 % (0-5); GRANULOCYTE % 69.3 % (42.2-75.2); HEMATOCRIT 34.8 % (42-52); MEAN CORPUSCULAR HGB 29.4 PG (27.0-31.0); MEAN CORPUSCULAR HGB CONC 32.7 G/DL (33.0-37.0); MEAN CORPUSCULAR VOLUME 89.8 FL (80.0-94.0); MEAN PLATELET VOLUME 7.1 FL (7.4-10.4); PLATELET COUNT 373 /CUMM (130-400); RBC DISTRIBUTION WIDTH 16.7 % (11.5-14.5); RED BLOOD CELL CT 3.87 /CUMM (4.70-6.10); WHITE BLOOD CELL COUNT 8.2 /CUMM (4.8-10.8)
--- NOTE | 2017-06-14 09:24 | PN- Nephrology ---
Assessment/Plan Assessment: 1. ESRD: HD in progress; UF 5 liters as BP allows Suggestion: Next HD Sat Await discharge plan Subjective Subjective: No complaints Large interdilaytic wt gains continue Objective Vital Signs and I&Os Vital Signs Date Time Temp Pulse Resp B/P B/P Pulse O2 O2 Flow FiO2 Mean Ox Delivery Rate 06/14 0730 160/90 06/14 0637 97.6 84 20 166/100 97 Room Air 06/13 2213 98.4 78 20 158/98 94 Room Air 06/13 2012 72 157/93 06/13 2007 72 157/93 06/13 2003 72 157/93 06/13 2002 72 157/93 06/13 1353 98.1 80 20 160/98 97 Room Air 06/13 0932 138/90 06/13 0931 138/90 06/13 0931 13890 Intake & Output 06/14 1600 06/14 0400 06/13 1600 06/13 0400 06/12 1600 06/12 0400 Intake Total 269 757 9785 720 480 240 Output Total 0 0 Balance 856 686 5233 720 480 240 Intake, IV 0 0 0 0 0 Intake, Oral 175 389 0211 720 480 240 Number 0 0 0 0 0 Bowel Movements Output, Urine 0 0 Patient 226 lb 218 lb 210 lb Weight Weight Standing Scale Standing Scale Bed scale Measurement Method Physical Exam General Appearance: well developed/nourished, no apparent distress, alert Head: atraumatic, normal appearance Respiratory: normal breath sounds, no respiratory distress, quiet respiration, lungs clear Cardiovascular: regular rate/rhythm Abdomen: soft, non-tender, no organomegaly Extremities: no edema Neurologic/Psychiatric: awake, alert, oriented x 3 Current Medications: Current Medications Sig/Grace Start time Last Medication Dose Route Stop Time Status Admin Acetaminophen 325 MG Q6-PRN PRN 04/09 2245 AC 06/14 PO 0614 Albuterol Sulfate 2 PUF Q4P PRN 04/09 2300 AC 06/13 INH 2001 Aripiprazole 400 MG Q30D 04/24 09 AC 05/24 IM 1239 Aspirin Buffered 81 MG 0800 04/10 0800 AC 06/13 PO 0822 Atorvastatin Calcium 40 MG 1700 04/10 1700 AC 06/13 PO 1655 Benztropine Mesylate 0.5 MG BID 04/10 1000 AC 06/13 PO 2006 Cinacalcet 60 MG DAILY 05/18 1000 AC 06/13 PO 0932 Epoetin [place] 8,000 UNIT TUES THLIS SAT PRN 04/10 1500 AC 05/03 IV 1345 Furosemide 80 MG 0800,2200 04/10 0800 AC 06/13 PO 2005 Gabapentin 300 MG AT BEDTIME 04/10 0215 AC 06/13 PO 2006 Hydralazine HCl 20 MG TID 05/08 1100 AC 06/13 PO 2003 Labetalol HCl 100 MG BID 04/10 1000 AC 06/13 PO 2008 Lactobacillus 1 CAP BID 05/24 2200 AC 06/13 Acidophilus PO 2007 Lamotrigine 150 MG DAILY 04/22 1000 AC 06/13 PO 0932 Multivitamins 1 TAB 1000 04/10 1000 AC 06/13 PO 0931 Omeprazole 40 MG DAILY AC 04/20 1325 AC 06/14 PO 0615 Oxcarbazepine 600 MG BID 04/10 1000 AC 06/13 PO 2008 Patient Medication 1 ED ONE ONE 06/13 1130 DC Teaching ED 06/13 1131 Propranolol HCl 10 MG BID 04/10 1000 AC 06/13 PO 2004 Quetiapine Fumarate 400 MG AT BEDTIME 04/10 0215 AC 06/13 PO 2008 Sevelamer Carbonate 2,400 MG TIDAC 04/10 0800 AC 06/13 PO 1655 Sodium Polystyrene 60 ML QMON 05/21 0700 AC 06/11 Sulfonate PO 0642 Sodium Polystyrene 60 ML QSUN 05/20 0700 AC 06/10 Sulfonate PO 0534 Tiotropium [place] 1 PUF DAILY 04/10 1000 AC 06/13 INH 0932 Results Pertinent Lab Results: Laboratory Tests 06/14 06/12 0815 0815 Chemistry Sodium (137 - 145 mmol/L) 139 139 Potassium (3.5 - 5.1 mmol/L) 4.9 4.9 Chloride (98 - 107 mmol/L) 98 95 L Carbon Dioxide (22 - 30 mmol/L) 22 27 Anion Gap (5 - 16) 20 H 18 H BUN (9 - 20 mg/dL) 62 H 73 H Creatinine (0.7 - 1.2 mg/dL) 8.8 *H 9.7 *H Estimated GFR (>60 ml/min) 6 L 6 L BUN/Creatinine Ratio (7 - 25 %) 7.0 7.5 Calcium (8.4 - 10.2 mg/dL) 8.5 8.0 L Phosphorus (2.5 - 4.5 mg/dL) 3.5 Magnesium (1.6 - 2.3 mg/dL) 2.2 Albumin (3.5 - 5.0 g/dL) 4.0 Hematology CBC w Diff NO MAN DIFF REQ NO MAN DIFF REQ WBC (4.8 - 10.8 /CUMM) 8.2 8.3 RBC (4.70 - 6.10 /CUMM) 3.87 L 3.71 L Hgb (14.0 - 18.0 G/DL) 11.4 L 10.9 L Hct (42 - 52 %) 34.8 L 33.2 L MCV (80.0 - 94.0 FL) 89.8 89.5 MCH (27.0 - 31.0 PG) 29.4 29.4 MCHC (33.0 - 37.0 G/DL) 32.7 L 32.9 L RDW (11.5 - 14.5 %) 16.7 H 16.6 H Plt Count (130 - 400 /CUMM) 373 373 MPV (7.4 - 10.4 FL) 7.1 L 6.9 L Gran % (42.2 - 75.2 %) 69.3 63.0 Lymphocytes % (20.5 - 51.1 %) 17.7 L 20.7 Monocytes % (1.7 - 9.3 %) 6.5 10.3 H Eosinophils % (0 - 5 %) 5.6 H 5.2 H Basophils % (0.0 - 2.0 %) 0.9 0.8 Absolute Granulocytes (1.4 - 6.5 /CUMM) 5.7 5.2 Absolute Lymphocytes (1.2 - 3.4 /CUMM) 1.5 1.7 Absolute Monocytes (0.10 - 0.60 /CUMM) 0.5 0.8 H Absolute Eosinophils (0.0 - 0.7 /CUMM) 0.5 0.4 Absolute Basophils (0.0 - 0.2 /CUMM) 0.1 0.1 Serology Hep Bs Antigen (NONREACTIVE) NONREACTIVE Hep Bs Antibody (NONREACTIVE) NONREACTIVE
--- NOTE | 2017-06-14 12:04 | PN- Att Addend ---
Attending Addendum Attending Brief Note Hemodialysis in progress, vital signs are stable no fever no new changes on physical. Disposition plans continue still having some insurance issues before somebody will accept the patient. Intake & Output 06/14 1600 06/14 0400 06/13 1600 06/13 0400 06/12 1600 06/12 0400 Intake Total 497 467 1217 720 480 240 Output Total 0 0 Balance 452 566 6494 720 480 240 Intake, IV 0 0 0 0 0 Intake, Oral 257 017 1035 720 480 240 Number 0 0 0 0 0 Bowel Movements Output, Urine 0 0 Patient 226 lb 218 lb 210 lb Weight Weight Standing Scale Standing Scale Bed scale Measurement Method Current Medications Sig/Grace Start time Last Medication Dose Route Stop Time Status Admin Acetaminophen 325 MG Q6-PRN PRN 04/09 2245 AC 06/14 PO 0614 Albuterol Sulfate 2 PUF Q4P PRN 04/09 2300 AC 06/13 INH 2002 Aripiprazole 400 MG Q30D 04/24 0900 AC 05/24 IM 1239 Aspirin Buffered 81 MG 0800 04/10 0800 AC 06/13 PO 0822 Atorvastatin Calcium 40 MG 1700 04/10 1700 AC 06/13 PO 1655 Benzocaine 1 GAVIN 4 TIMES/DAY PRN 06/14 1130 AC TOP Benztropine Mesylate 0.5 MG BID 04/10 1000 AC 06/13 PO 2006 Cinacalcet 60 MG DAILY 05/18 1000 AC 06/13 PO 0932 Epoetin [place] 8,000 UNIT TUES THURS SAT PRN 04/10 1500 AC 05/03 IV 1345 Furosemide 80 MG 0800,2200 04/10 0800 AC 06/13 PO 2005 Gabapentin 300 MG AT BEDTIME 04/10 0215 AC 06/13 PO 2006 Hydralazine HCl 20 MG TID 05/08 1100 AC 06/13 PO 2003 Labetalol HCl 100 MG BID 04/10 1000 AC 06/13 PO 2008 Lactobacillus 1 CAP BID 05/24 2200 AC 06/13 Acidophilus PO 2007 Lamotrigine 150 MG DAILY 04/22 1000 AC 06/13 PO 0932 Lidocaine 15 ML TID PRN 06/14 1130 AC PO Multivitamins 1 TAB 1000 04/10 1000 AC 06/13 PO 0931 Omeprazole 40 MG DAILY AC 04/20 1325 AC 06/14 PO 0615 Oxcarbazepine 600 MG BID 04/10 1000 AC 06/13 PO 2008 Propranolol HCl 10 MG BID 04/10 1000 AC 06/13 PO 2003 Quetiapine Fumarate 400 MG AT BEDTIME 04/10 0215 AC 06/13 PO 2007 Sevelamer Carbonate 2,400 MG TIDAC 04/10 0800 AC 06/13 PO 1655 Sodium Polystyrene 60 ML QMON 05/21 0700 AC 06/11 Sulfonate PO 0642 Sodium Polystyrene 60 ML QSUN 05/20 0700 AC 06/10 Sulfonate PO 0534 Tiotropium [place] 1 PUF DAILY 04/10 1000 AC 06/13 INH 0932 Laboratory Tests 06/14/1715: Anion Gap 20 H, Estimated GFR 6 L, BUN/Creatinine Ratio 7.0, Calcium 8.5, Phosphorus 3.5, Magnesium 2.2, Albumin 4.0, CBC w Diff NO MAN DIFF REQ, RBC 3.87 L, MCV 89.8, MCH 29.4, MCHC 32.7 L, RDW 16.7 H, MPV 7.1 L, Gran % 69.3, Lymphocytes % 17.7 L, Monocytes % 6.5, Eosinophils % 5.6 H, Basophils % 0.9, Absolute Granulocytes 5.7, Absolute Lymphocytes 1.5, Absolute Monocytes 0.5, Absolute Eosinophils 0.5, Absolute Basophils 0.1 06/12/17814: Anion Gap 18 H, Estimated GFR 6 L, BUN/Creatinine Ratio 7.5, Calcium 8.0 L, CBC w Diff NO MAN DIFF REQ, RBC 3.71 L, MCV 89.5, MCH 29.4, MCHC 32.9 L, RDW 16.6 H, MPV 6.9 L, Gran % 63.0, Lymphocytes % 20.7, Monocytes % 10.3 H, Eosinophils % 5.2 H, Basophils % 0.8, Absolute Granulocytes 5.2, Absolute Lymphocytes 1.7, Absolute Monocytes 0.8 H, Absolute Eosinophils 0.4, Absolute Basophils 0.1, Hep Bs Antigen NONREACTIVE, Hep Bs Antibody NONREACTIVE Vital Signs Date Time Temp Pulse Resp B/P B/P Pulse O2 O2 Flow FiO2 Mean Ox Delivery Rate 06/14 0730 160/90 06/14 0637 97.6 84 20 166/100 97 Room Air 06/133 98.4 78 20 158/98 94 Room Air 06/13 2012 72 157/93 06/13 2007 72 157/93 06/13 2003 72 157/93 06/13 2002 72 157/93 06/13 1353 98.1 80 20 160/98 97 Room Air
[2017-06-14 12:46] VITALS: BP 148/82
[2017-06-14 13:32] VITALS: BP 148/82
[2017-06-14 16:00] VITALS: BP 140/70
[2017-06-14 22:05] VITALS: BP 126/86
[2017-06-15 06:35] VITALS: BP 134/78
--- NOTE | 2017-06-15 11:13 | PN- Att Addend ---
Attending Addendum Attending Brief Note No new issues. Patient comfortable in his room with his vital signs are stable no changes on physical. Hemodialysis continues 3 times a week and disposition plans to continue Intake & Output 06/15 1600 06/15 0400 06/14 1600 06/14 0400 06/13 1600 06/13 0400 Intake Total 20 375 829 203 4476 720 Output Total 5000 0 Balance 20 375 -4280 120 1480 720 Intake, IV 0 0 0 Intake, Oral 20 375 027 953 5459 720 Number 0 0 0 Bowel Movements Output, 5000 Dialysate Output, Urine 0 Patient 184 lb 199 lb 218 lb Weight Weight Bed scale Standing Scale Standing Scale Measurement Method Current Medications Sig/Grace Start time Last Medication Dose Route Stop Time Status Admin Acetaminophen 325 MG Q6-PRN PRN 04/09 2245 AC 06/14 PO 0614 Albuterol Sulfate 2 PUF Q4P PRN 04/09 2300 AC 06/13 INH 2001 Aripiprazole 400 MG Q30D 04/24 0900 AC 05/24 IM 1239 Aspirin Buffered 81 MG 0800 04/10 0800 AC 06/15 PO 0826 Atorvastatin Calcium 40 MG 1700 04/10 1700 AC 06/14 PO 1623 Benzocaine 1 GAVIN 4 TIMES/DAY PRN 06/14 1130 AC TOP Benztropine Mesylate 0.5 MG BID 04/10 1000 AC 06/15 PO 0828 Cinacalcet 60 MG DAILY 05/18 1000 AC 06/15 PO 0827 Epoetin Florent[place] 8,000 UNIT TUES THURS SAT PRN 04/10 1500 AC 05/03 IV 1345 Furosemide 80 MG 0800,2200 04/10 0800 AC 06/15 PO 0824 Gabapentin 300 MG AT BEDTIME 04/10 0215 AC 06/14 PO 2103 Hydralazine HCl 20 MG TID 05/08 1100 AC 06/15 PO 0826 Labetalol HCl 100 MG BID 04/10 1000 AC 06/15 PO 0829 Lactobacillus 1 CAP BID 05/24 2200 AC 06/15 Acidophilus PO 0825 Lamotrigine 150 MG DAILY 04/22 1000 AC 06/15 PO 0827 Lidocaine 15 ML TID PRN 06/14 1130 AC 06/14 PO 1414 Multivitamins 1 TAB 1000 04/10 1000 AC 06/15 PO 0828 Omeprazole 40 MG DAILY AC 04/20 1325 AC 02/16 PO 0512 Oxcarbazepine 600 MG BID 04/10 1000 AC 06/15 PO 0825 Propranolol HCl 10 MG BID 04/10 1000 AC 06/15 PO 0902 Quetiapine Fumarate 400 MG AT BEDTIME 04/10 0215 AC 06/14 PO 2103 Sevelamer Carbonate 2,400 MG TIDAC 04/10 0800 AC 06/15 PO 0825 Sodium Polystyrene 60 ML QMON 05/21 0700 AC 06/11 Sulfonate PO 0642 Sodium Polystyrene 60 ML QSUN 05/20 0700 AC 06/10 Sulfonate PO 0534 Tiotropium [place] 1 PUF DAILY 04/10 1000 AC 06/15 INH 0827 Laboratory Tests 06/14/17 1210: 06/14/17 0815: Anion Gap 20 H, Estimated GFR 6 L, BUN/Creatinine Ratio 7.0, Calcium 8.5, Phosphorus 3.5, Magnesium 2.2, Albumin 4.0, CBC w Diff NO MAN DIFF REQ, RBC 3.87 L, MCV 89.8, MCH 29.4, MCHC 32.7 L, RDW 16.7 H, MPV 7.1 L, Gran % 69.3, Lymphocytes % 17.7 L, Monocytes % 6.5, Eosinophils % 5.6 H, Basophils % 0.9, Absolute Granulocytes 5.7, Absolute Lymphocytes 1.5, Absolute Monocytes 0.5, Absolute Eosinophils 0.5, Absolute Basophils 0.1 Vital Signs Date Time Temp Pulse Resp B/P B/P Pulse O2 O2 Flow FiO2 Mean Ox Delivery Rate 06/15 0635 98.4 78 20 134/78 96 Room Air 06/14 2204 98.2 79 20 126/86 97 Room Air 06/14 2103 79 126/86 06/14 2102 79 126/86 06/14 2102 79 126/86 06/14 1623 77 140/70 06/14 1600 77 140/70 06/14 1332 98.6 86 20 148/82 96 06/14 1246 148/82
[2017-06-15 15:18] VITALS: BP 128/84
[2017-06-15 21:45] VITALS: BP 160/82
[2017-06-16 06:22] VITALS: BP 160/92
--- NOTE | 2017-06-16 14:36 | PN- Nephrology ---
Assessment/Plan Nephrology Assessment: ESRD - Routine HD today. Will switch to MWF while in-house. Suggestion: -HD today - 4L UF -Switch to MWF HD schedule while in-house Please call [phone] with ?'s Subjective Subjective: Pt seen and examined on dialysis Pondering how big the hospital bill will be Objective Vital Signs and I&Os Vital Signs Date Time Temp Pulse Resp B/P B/P Pulse O2 O2 Flow FiO2 Mean Ox Delivery Rate 06/16 09 81 160/90 06/16 09 81 160/92 06/16 09 81 160/92 06/16 0622 97.6 81 20 160/92 98 06/15 2201 79 160/82 06/15 2201 79 160/82 06/15 2201 79 160/82 06/15 2145 98.1 79 20 160/82 97 Room Air 06/15 1518 98.6 84 20 128/84 97 Room Air Intake & Output 06/16 1600 06/16 0400 06/15 1600 06/15 0400 06/14 1600 06/14 0400 Intake Total 140 620 375 720 120 Output Total 5000 Balance 140 620 375 -4280 120 Intake, IV 0 0 Intake, Oral 140 620 375 720 120 Number 0 0 Bowel Movements Output, 5000 Dialysate Patient 222 lb 184 lb 199 lb Weight Weight Standing Scale Bed scale Standing Scale Measurement Method Physical Exam: Gen - ok appearing HEENT - supple CV - RRR Chest - clear Abd - soft, NTND Ext - no edema Neuro - AOX3, grossly nonfocal Current Medications: Current Medications Sig/Grace Start time Last Medication Dose Route Stop Time Status Admin Acetaminophen 325 MG Q6-PRN PRN 04/09 2245 AC 06/14 PO 0614 Albuterol Sulfate 2 PUF Q4P PRN 04/09 2300 AC 06/13 INH 2001 Aripiprazole 400 MG Q30D 04/24 0900 AC 05/24 IM 1239 Aspirin Buffered 81 MG 0800 04/10 0800 AC 06/16 PO 0808 Atorvastatin Calcium 40 MG 1700 04/10 1700 AC 06/15 PO 1713 Benzocaine 1 GAVIN 4 TIMES/DAY PRN 06/14 1130 AC TOP Benztropine Mesylate 0.5 MG BID 04/10 1000 AC 06/16 PO 0900 Cinacalcet 60 MG DAILY 05/18 1000 AC 06/16 PO 0900 Epoetin Florent[place] 8,000 UNIT [place] THLIS SAT PRN 04/10 1500 AC 05/03 IV 1345 Furosemide 80 MG 0800,2200 04/10 0800 AC 06/16 PO 0808 Gabapentin 300 MG AT BEDTIME 04/10 0215 AC 06/15 PO 2200 Hydralazine HCl 20 MG TID 05/08 1100 AC 06/16 PO 0900 Labetalol HCl 100 MG BID 04/10 1000 AC 06/16 PO 0900 Lactobacillus 1 CAP BID 05/24 2200 AC 06/16 Acidophilus PO 0900 Lamotrigine 150 MG DAILY 04/22 1000 AC 06/16 PO 0900 Lidocaine 15 ML TID PRN 06/14 1130 AC 06/14 PO 1414 Multivitamins 1 TAB 1000 04/10 1000 AC 06/16 PO 0900 Omeprazole 40 MG DAILY AC 04/20 1325 AC 06/16 PO 0545 Oxcarbazepine 600 MG BID 04/10 1000 AC 06/16 PO 1000 Propranolol HCl 10 MG BID 04/10 1000 AC 06/16 PO 0900 Quetiapine Fumarate 400 MG AT BEDTIME 04/10 0215 AC 06/15 PO 2200 Sevelamer Carbonate 2,400 MG TIDAC 04/10 0800 AC 06/16 PO 1115 Sodium Polystyrene 60 ML QMON 05/21 0700 AC 06/11 Sulfonate PO 0642 Sodium Polystyrene 60 ML QSUN 05/20 0700 AC 06/10 Sulfonate PO 0534 Tiotropium [place] 1 PUF DAILY 04/10 1000 AC 06/16 INH 0900 Results Pertinent Lab Results: Laboratory Tests 06/14 06/14 1210 0815 Chemistry Sodium (137 - 145 mmol/L) 139 Potassium (3.5 - 5.1 mmol/L) 4.9 Chloride (98 - 107 mmol/L) 98 Carbon Dioxide (22 - 30 mmol/L) 22 Anion Gap (5 - 16) 20 H BUN (9 - 20 mg/dL) 20 62 H Creatinine (0.7 - 1.2 mg/dL) 8.8 *H Estimated GFR (>60 ml/min) 6 L BUN/Creatinine Ratio (7 - 25 %) 7.0 Calcium (8.4 - 10.2 mg/dL) 8.5 Phosphorus (2.5 - 4.5 mg/dL) 3.5 Magnesium (1.6 - 2.3 mg/dL) 2.2 Albumin (3.5 - 5.0 g/dL) 4.0 Hematology CBC w Diff NO MAN DIFF REQ WBC (4.8 - 10.8 /CUMM) 8.2 RBC (4.70 - 6.10 /CUMM) 3.87 L Hgb (14.0 - 18.0 G/DL) 11.4 L Hct (42 - 52 %) 34.8 L MCV (80.0 - 94.0 FL) 89.8 MCH (27.0 - 31.0 PG) 29.4 MCHC (33.0 - 37.0 G/DL) 32.7 L RDW (11.5 - 14.5 %) 16.7 H Plt Count (130 - 400 /CUMM) 373 MPV (7.4 - 10.4 FL) 7.1 L Gran % (42.2 - 75.2 %) 69.3 Lymphocytes % (20.5 - 51.1 %) 17.7 L Monocytes % (1.7 - 9.3 %) 6.5 Eosinophils % (0 - 5 %) 5.6 H Basophils % (0.0 - 2.0 %) 0.9 Absolute Granulocytes (1.4 - 6.5 /CUMM) 5.7 Absolute Lymphocytes (1.2 - 3.4 /CUMM) 1.5 Absolute Monocytes (0.10 - 0.60 /CUMM) 0.5 Absolute Eosinophils (0.0 - 0.7 /CUMM) 0.5 Absolute Basophils (0.0 - 0.2 /CUMM) 0.1
[2017-06-16 14:54] LABS: ABSOLUTE BASOPHIL COUNT 0.1 /CUMM (0.0-0.2); ABSOLUTE EOSINOPHIL COUNT 0.5 /CUMM (0.0-0.7); ABSOLUTE GRANULOCYTE CT 6.2 /CUMM (1.4-6.5); ABSOLUTE LYMPH COUNT 1.8 /CUMM (1.2-3.4); ABSOLUTE MONOCYTE COUNT 0.8 /CUMM (0.10-0.60); BASOPHIL % 0.7 % (0.0-2.0); EOSINOPHIL % 5.2 % (0-5); GRANULOCYTE % 66.8 % (42.2-75.2); HEMATOCRIT 35.3 % (42-52); MEAN CORPUSCULAR HGB 28.6 PG (27.0-31.0); MEAN CORPUSCULAR HGB CONC 31.8 G/DL (33.0-37.0); MEAN CORPUSCULAR VOLUME 90.1 FL (80.0-94.0); MEAN PLATELET VOLUME 7.1 FL (7.4-10.4); PLATELET COUNT 392 /CUMM (130-400); RBC DISTRIBUTION WIDTH 17.1 % (11.5-14.5); RED BLOOD CELL CT 3.92 /CUMM (4.70-6.10); WHITE BLOOD CELL COUNT 9.3 /CUMM (4.8-10.8)
--- NOTE | 2017-06-16 19:17 | PN- Pulmonary ---
Subjective HPI/Critical Care Issues: IN dialysis stable Objective Current Medications: Current Medications Sig/Grace Start time Last Medication Dose Route Stop Time Status Admin Acetaminophen 325 MG Q6-PRN PRN 04/09 2245 AC 06/14 PO 0614 Albuterol Sulfate 2 PUF Q4P PRN 04/09 2300 AC 06/13 INH 2001 Aripiprazole 400 MG Q30D 04/24 0900 AC 05/24 IM 1239 Aspirin Buffered 81 MG 0800 04/10 0800 AC 06/16 PO 0808 Atorvastatin Calcium 40 MG 1700 04/10 1700 AC 06/15 PO 1713 Benzocaine 1 GAVIN 4 TIMES/DAY PRN 06/14 1130 AC TOP Benztropine Mesylate 0.5 MG BID 04/10 1000 AC 06/16 PO 0900 Cinacalcet 60 MG DAILY 05/18 1000 AC 06/16 PO 0900 Epoetin [place] 8,000 UNIT TUES THURS SAT PRN 04/10 1500 AC 05/03 IV 1345 Furosemide 80 MG 0800,2200 04/10 0800 AC 06/16 PO 0808 Gabapentin 300 MG AT BEDTIME 04/10 0215 AC 06/15 PO 2200 Hydralazine HCl 20 MG TID 05/08 1100 AC 06/16 PO 0900 Labetalol HCl 100 MG BID 04/10 1000 AC 06/16 PO 0900 Lactobacillus 1 CAP BID 05/24 2200 AC 06/16 Acidophilus PO 0900 Lamotrigine 150 MG DAILY 04/22 1000 AC 06/16 PO 0900 Lidocaine 15 ML TID PRN 06/14 1130 AC 06/14 PO 1414 Multivitamins 1 TAB 1000 04/10 1000 AC 06/16 PO 0900 Omeprazole 40 MG DAILY AC 04/20 1325 AC 06/16 PO 0545 Oxcarbazepine 600 MG BID 04/10 1000 AC 06/16 PO 1000 Propranolol HCl 10 MG BID 04/10 1000 AC 06/16 PO 0900 Quetiapine Fumarate 400 MG AT BEDTIME 04/10 0215 AC 06/15 PO 2200 Sevelamer Carbonate 2,400 MG TIDAC 04/10 0800 AC 06/16 PO 1115 Sodium Polystyrene 60 ML QMON 05/21 0700 AC 06/11 Sulfonate PO 0642 Sodium Polystyrene 60 ML QSUN 05/20 0700 AC 06/10 Sulfonate PO 0534 Tiotropium [place] 1 PUF DAILY 04/10 1000 AC 06/16 INH 0900 Vital Signs & I&O Last 24 Hrs of Vitals and I&O: Vital Signs Date Time Temp Pulse Resp B/P B/P Pulse O2 O2 Flow FiO2 Mean Ox Delivery Rate 06/16 0900 81 160/90 06/16 0900 81 160/92 06/16 0900 81 160/92 06/16 0622 97.6 81 20 160/92 98 06/15 2201 79 160/82 06/15 2201 79 160/82 06/15 2201 79 160/82 06/15 2145 98.1 79 20 160/82 97 Room Air Intake & Output 06/16 1600 06/16 0800 06/16 0000 Intake Total 420 140 Output Total Balance 420 140 Intake, Oral 420 140 Number 1 Bowel Movements Patient 222 lb Weight Weight Standing Scale Measurement Method Impression/Plan Impression/Plan Impression/Plan: 61 yo M active smoker with pmhx of ESRD on HD, HFrEF (EF 45-50%) HTN, HLD, bipolar disorder, asthma/COPD, and seizure history presented with dyspnea and acute blood loss anemia with guaiac positive stool. PT with ESRD now on dialysis Anemia s/p transfusion No sig ongoing bleed MBD on sensipar and sevelmer Bipolar on meds HFrEF on meds HLD stable H/o seizures stable no active seizure ETOH and cannabis use REcent manic episode REC cont dialysis Cont sitter per Psych Cont all meds Needs LTC Cannot leave ama Cont other meds Will follow
[2017-06-16 21:00] VITALS: BP 160/94
[2017-06-17 07:01] VITALS: BP 130/84
[2017-06-17 08:02] LABS: ABSOLUTE BASOPHIL COUNT 0.1 /CUMM (0.0-0.2); ABSOLUTE EOSINOPHIL COUNT 0.4 /CUMM (0.0-0.7); ABSOLUTE GRANULOCYTE CT 6.8 /CUMM (1.4-6.5); ABSOLUTE LYMPH COUNT 1.6 /CUMM (1.2-3.4); ABSOLUTE MONOCYTE COUNT 0.9 /CUMM (0.10-0.60); BASOPHIL % 0.6 % (0.0-2.0); EOSINOPHIL % 4.5 % (0-5); GRANULOCYTE % 69.6 % (42.2-75.2); HEMATOCRIT 38.2 % (42-52); MEAN CORPUSCULAR HGB 29.3 PG (27.0-31.0); MEAN CORPUSCULAR HGB CONC 32.5 G/DL (33.0-37.0); PLATELET COUNT 420 /CUMM (130-400); RBC DISTRIBUTION WIDTH 17.9 % (11.5-14.5); RED BLOOD CELL CT 4.24 /CUMM (4.70-6.10); WHITE BLOOD CELL COUNT 9.7 /CUMM (4.8-10.8)
--- NOTE | 2017-06-17 10:53 | PN- Pulmonary ---
Subjective HPI/Critical Care Issues: Stable Fatigue Objective Current Medications: Current Medications Sig/Grace Start time Last Medication Dose Route Stop Time Status Admin Acetaminophen 325 MG Q6-PRN PRN 04/09 2245 AC 06/14 PO 0614 Albuterol Sulfate 2 PUF Q4P PRN 04/09 2300 AC 06/13 INH 2001 Aripiprazole 400 MG Q30D 04/24 0900 AC 05/24 IM 1239 Aspirin Buffered 81 MG 0800 04/10 0800 AC 06/17 PO 0856 Atorvastatin Calcium 40 MG 1700 04/10 1700 AC 06/16 PO 1932 Benzocaine 1 GAVIN 4 TIMES/DAY PRN 06/14 1130 AC TOP Benztropine Mesylate 0.5 MG BID 04/10 1000 AC 06/17 PO 0856 Cinacalcet 60 MG DAILY 05/18 1000 AC 06/17 PO 0900 Epoetin [place] 8,000 UNIT TUES THURS SAT PRN 04/10 1500 AC 05/03 IV 1345 Furosemide 80 MG 0800,2200 04/10 0800 AC 06/17 PO 0857 Gabapentin 300 MG AT BEDTIME 04/10 0215 AC 06/16 PO 2116 Hydralazine HCl 20 MG TID 05/08 1100 AC 06/17 PO 0858 Labetalol HCl 100 MG BID 04/10 1000 AC 06/17 PO 0856 Lactobacillus 1 CAP BID 05/24 2200 AC 06/17 Acidophilus PO 0856 Lamotrigine 150 MG DAILY 04/22 1000 AC 06/17 PO 0901 Lidocaine 15 ML TID PRN 06/14 1130 AC 06/14 PO 1414 Multivitamins 1 TAB 1000 04/10 1000 AC 06/17 PO 0857 Omeprazole 40 MG DAILY AC 04/20 1325 AC 06/17 PO 0902 Oxcarbazepine 600 MG BID 04/10 1000 AC 06/17 PO 0857 Propranolol HCl 10 MG BID 04/10 1000 AC 06/17 PO 0902 Quetiapine Fumarate 400 MG AT BEDTIME 04/10 0215 AC 06/16 PO 2117 Sevelamer Carbonate 2,400 MG TIDAC 04/10 0800 AC 06/17 PO 0859 Sodium Polystyrene 60 ML QMON 05/21 0700 AC 06/11 Sulfonate PO 0642 Sodium Polystyrene 60 ML QSUN 05/20 0700 AC 06/17 Sulfonate PO 0504 Tiotropium [place] 1 PUF DAILY 04/10 1000 AC 06/17 INH 0902 Vital Signs & I&O Last 24 Hrs of Vitals and I&O: Vital Signs Date Time Temp Pulse Resp B/P B/P Pulse O2 O2 Flow FiO2 Mean Ox Delivery Rate 06/17 0902 82 130/84 06/17 0858 82 130/84 06/17 0856 82 130/84 06/17 0701 97.6 82 20 130/84 97 06/168 81 160/94 06/16 2117 81 160/94 06/16 2117 81 160/94 06/16 2100 96.9 81 18 160/94 97 Room Air 06/16 1932 78 140/80 Intake & Output 06/17 1600 06/17 0800 06/17 0000 Intake Total Output Total Balance Patient 217 lb Weight Weight Standing Scale Measurement Method Impression/Plan Impression/Plan Impression/Plan: SEA Chest clear CVS s1s2 61 yo M active smoker with pmhx of ESRD on HD, HFrEF (EF 45-50%) HTN, HLD, bipolar disorder, asthma/COPD, and seizure history presented with dyspnea and acute blood loss anemia with guaiac positive stool. PT with ESRD now on dialysis Anemia s/p transfusion No sig ongoing bleed MBD on sensipar and sevelmer Bipolar on meds HFrEF on meds HLD stable H/o seizures stable no active seizure ETOH and cannabis use REcent manic episode REC cont dialysis Cont sitter per Psych Cont all meds Needs LTC Cannot leave ama Cont other meds Will follow
[2017-06-17 14:01] VITALS: BP 110/82
[2017-06-18 06:00] VITALS: BP 134/84
[2017-06-18 08:44] LABS: ABSOLUTE BASOPHIL COUNT 0 /CUMM (0.0-0.2); ABSOLUTE EOSINOPHIL COUNT 0.6 /CUMM (0.0-0.7); ABSOLUTE GRANULOCYTE CT 5.4 /CUMM (1.4-6.5); ABSOLUTE LYMPH COUNT 1.9 /CUMM (1.2-3.4); ABSOLUTE MONOCYTE COUNT 0.8 /CUMM (0.10-0.60); BASOPHIL % 0.5 % (0.0-2.0); EOSINOPHIL % 6.6 % (0-5); GRANULOCYTE % 61.8 % (42.2-75.2); MEAN CORPUSCULAR HGB 29.4 PG (27.0-31.0); MEAN CORPUSCULAR HGB CONC 32.8 G/DL (33.0-37.0); MEAN CORPUSCULAR VOLUME 89.7 FL (80.0-94.0); MEAN PLATELET VOLUME 7.2 FL (7.4-10.4); PLATELET COUNT 405 /CUMM (130-400); RBC DISTRIBUTION WIDTH 17.1 % (11.5-14.5); RED BLOOD CELL CT 4.13 /CUMM (4.70-6.10); WHITE BLOOD CELL COUNT 8.8 /CUMM (4.8-10.8)
--- NOTE | 2017-06-18 09:06 | PN- Nephrology ---
Assessment/Plan Nephrology Assessment: ESRD: HD in progress - UF another 5 liters HyperK: recheck - correct w HD - discussed restricitions w pt Suggestion: Next HD [facility] Needs dietary counseling Subjective Subjective: No complaints Noncompliant w dietary restrictions Objective Vital Signs and I&Os Vital Signs Date Time Temp Pulse Resp B/P B/P Pulse O2 O2 Flow FiO2 Mean Ox Delivery Rate 06/18 599 98.2 71 18 134/84 97 06/17 2056 76 148/102 06/17 2056 76 148/102 06/17 2056 76 148/102 06/17 1600 83 110/82 06/17 1401 98.3 83 20 110/82 96 Intake & Output 06/18 0400 06/17 1600 06/17 0400 06/16 1600 06/16 0400 Intake Total 240 240 480 420 140 Output Total Balance 240 240 480 420 140 Intake, IV 0 0 Intake, Oral 240 240 480 420 140 Number 0 0 0 1 Bowel Movements Patient 224 lb 217 lb 222 lb Weight Weight Standing Scale Standing Scale Standing Scale Measurement Method Physical Exam General Appearance: well developed/nourished, no apparent distress, alert Head: atraumatic, normal appearance Neck: normal inspection Respiratory: no respiratory distress, quiet respiration, lungs clear Cardiovascular: regular rate/rhythm Abdomen: soft, non-tender, no organomegaly Extremities: tr edema Current Medications: Current Medications Sig/Grace Start time Last Medication Dose Route Stop Time Status Admin Acetaminophen 325 MG Q6-PRN PRN 04/09 2245 AC 06/17 PO 2349 Albuterol Sulfate 2 PUF Q4P PRN 04/09 2300 AC 06/13 INH 2001 Aripiprazole 400 MG Q30D 04/24 0900 AC 05/24 IM 1239 Aspirin Buffered 81 MG 0800 04/10 0800 AC 06/17 PO 0856 Atorvastatin Calcium 40 MG 1700 04/10 1700 AC 06/17 PO 1745 Benzocaine 1 GAVIN 4 TIMES/DAY PRN 06/14 1130 AC TOP Benztropine Mesylate 0.5 MG BID 04/10 1000 AC 06/17 PO 205 Cinacalcet 60 MG DAILY 05/18 1000 AC 06/17 PO 0900 Epoetin [place] 8,000 UNIT TUES THURS SAT PRN 04/10 1500 AC 05/03 IV 1345 Furosemide 80 MG 0800,2200 04/10 0800 AC 06/17 PO 2055 Gabapentin 300 MG AT BEDTIME 04/10 0215 AC 06/17 PO 2055 Hydralazine HCl 20 MG TID 05/08 1100 AC 06/17 PO 2056 Labetalol HCl 100 MG BID 04/10 1000 AC 06/17 PO 2056 Lactobacillus 1 CAP BID 05/24 2200 AC 06/17 Acidophilus PO 2054 Lamotrigine 150 MG DAILY 04/22 1000 AC 06/17 PO 0901 Lidocaine 15 ML TID PRN 06/14 1130 AC 06/14 PO 141 Multivitamins 1 TAB 1000 04/10 1000 AC 06/17 PO 0857 Omeprazole 40 MG DAILY AC 04/20 1325 AC 06/18 PO 06 Oxcarbazepine 600 MG BID 04/10 1000 AC 06/17 PO 2056 Propranolol HCl 10 MG BID 04/10 1000 AC 06/17 PO 2056 Quetiapine Fumarate 400 MG AT BEDTIME 04/10 0215 AC 06/17 PO 2057 Sevelamer Carbonate 2,400 MG TIDAC 04/10 0800 AC 06/17 PO 1743 Sodium Polystyrene 60 ML QMON 05/21 0700 AC 06/18 Sulfonate PO 0644 Sodium Polystyrene 60 ML QSUN 05/20 0700 AC 06/17 Sulfonate PO 0504 Tiotropium [place] 1 PUF DAILY 04/10 1000 AC 06/17 INH 0902 Results Pertinent Lab Results: Laboratory Tests 06/18 06/17 0747 0715 Chemistry Sodium (137 - 145 mmol/L) Pending 140 Potassium (3.5 - 5.1 mmol/L) Pending 5.8 H Chloride (98 - 107 mmol/L) Pending 96 L Carbon Dioxide (22 - 30 mmol/L) Pending 27 Anion Gap (5 - 16) Pending 17 H BUN (9 - 20 mg/dL) Pending 42 H Creatinine (0.7 - 1.2 mg/dL) Pending 6.8 *H Estimated GFR (>60 ml/min) 8 L BUN/Creatinine Ratio (7 - 25 %) Pending 6.2 L Calcium Pending Hematology CBC w Diff Pending NO MAN DIFF REQ WBC (4.8 - 10.8 /CUMM) Pending 9.7 RBC (4.70 - 6.10 /CUMM) Pending 4.24 L Hgb (14.0 - 18.0 G/DL) Pending 12.4 L Hct (42 - 52 %) Pending 38.2 L MCV (80.0 - 94.0 FL) Pending 90.0 MCH (27.0 - 31.0 PG) Pending 29.3 MCHC (33.0 - 37.0 G/DL) Pending 32.5 L RDW (11.5 - 14.5 %) Pending 17.9 H Plt Count (130 - 400 /CUMM) Pending 420 H MPV (7.4 - 10.4 FL) Pending 7.0 L Gran % (42.2 - 75.2 %) 69.6 Lymphocytes % (20.5 - 51.1 %) 16.1 L Monocytes % (1.7 - 9.3 %) 9.2 Eosinophils % (0 - 5 %) 4.5 Basophils % (0.0 - 2.0 %) 0.6 Absolute Granulocytes (1.4 - 6.5 /CUMM) 6.8 H Absolute Lymphocytes (1.2 - 3.4 /CUMM) 1.6 Absolute Monocytes (0.10 - 0.60 /CUMM) 0.9 H Absolute Eosinophils (0.0 - 0.7 /CUMM) 0.4 Absolute Basophils (0.0 - 0.2 /CUMM) 0.1 06/16 1430 Chemistry Sodium (137 - 145 mmol/L) 134 L Potassium (3.5 - 5.1 mmol/L) 6.6 *H Chloride (98 - 107 mmol/L) 96 L Carbon Dioxide (22 - 30 mmol/L) 22 Anion Gap (5 - 16) 16 BUN (9 - 20 mg/dL) 62 H Creatinine (0.7 - 1.2 mg/dL) 8.9 *H Estimated GFR (>60 ml/min) 6 L BUN/Creatinine Ratio (7 - 25 %) 7.0 Calcium (8.4 - 10.2 mg/dL) 8.3 L Hematology CBC w Diff NO MAN DIFF REQ WBC (4.8 - 10.8 /CUMM) 9.3 RBC (4.70 - 6.10 /CUMM) 3.92 L Hgb (14.0 - 18.0 G/DL) 11.2 L Hct (42 - 52 %) 35.3 L MCV (80.0 - 94.0 FL) 90.1 MCH (27.0 - 31.0 PG) 28.6 MCHC (33.0 - 37.0 G/DL) 31.8 L RDW (11.5 - 14.5 %) 17.1 H Plt Count (130 - 400 /CUMM) 392 MPV (7.4 - 10.4 FL) 7.1 L Gran % (42.2 - 75.2 %) 66.8 Lymphocytes % (20.5 - 51.1 %) 18.8 L Monocytes % (1.7 - 9.3 %) 8.5 Eosinophils % (0 - 5 %) 5.2 H Basophils % (0.0 - 2.0 %) 0.7 Absolute Granulocytes (1.4 - 6.5 /CUMM) 6.2 Absolute Lymphocytes (1.2 - 3.4 /CUMM) 1.8 Absolute Monocytes (0.10 - 0.60 /CUMM) 0.8 H Absolute Eosinophils (0.0 - 0.7 /CUMM) 0.5 Absolute Basophils (0.0 - 0.2 /CUMM) 0.1
--- NOTE | 2017-06-18 11:03 | PN- Att Addend ---
Attending Addendum Attending Brief Note Hemodialysis in progress, no new issues, vital signs are stable no fever no changes on physical continue present treatments and disposition plans. Intake & Output 06/18 1600 06/18 0400 06/17 1600 06/17 0400 06/16 1600 06/16 0400 Intake Total 240 240 480 420 140 Output Total Balance 240 240 480 420 140 Intake, IV 0 0 Intake, Oral 240 240 480 420 140 Number 0 0 0 1 Bowel Movements Patient 224 lb 217 lb 222 lb Weight Weight Standing Scale Standing Scale Standing Scale Measurement Method Current Medications Sig/Grace Start time Last Medication Dose Route Stop Time Status Admin Acetaminophen 325 MG Q6-PRN PRN 04/09 2245 AC 06/17 PO 2349 Albuterol Sulfate 2 PUF Q4P PRN 04/09 2300 AC 06/13 INH 2001 Aripiprazole 400 MG Q30D 04/24 0900 AC 05/24 IM 1239 Aspirin Buffered 81 MG 0800 04/10 0800 AC 06/17 PO 0856 Atorvastatin Calcium 40 MG 1700 04/10 1700 AC 06/17 PO 1745 Benzocaine 1 GAVIN 4 TIMES/DAY PRN 06/14 1130 AC TOP Benztropine Mesylate 0.5 MG BID 04/10 1000 AC 06/17 PO 2055 Cinacalcet 60 MG DAILY 05/18 1000 AC 06/17 PO 0900 Epoetin [place] 4,000 UNIT Sunday .. 06/18 1011 AC IV Epoetin [place] 8,000 UNIT SAT PRN 04/10 1500 DC 05/03 IV 1345 Furosemide 80 MG 0800,2200 04/10 0800 AC 06/17 PO 2055 Gabapentin 300 MG AT BEDTIME 04/10 0215 AC 06/17 PO 2055 Hydralazine HCl 20 MG TID 05/08 1100 AC 06/17 PO 2056 Labetalol HCl 100 MG BID 04/10 1000 AC 06/17 PO 2056 Lactobacillus 1 CAP BID 05/24 2200 AC 06/17 Acidophilus PO 2054 Lamotrigine 150 MG DAILY 04/22 1000 AC 06/17 PO 0901 Lidocaine 15 ML TID PRN 06/14 1130 AC 06/14 PO 1414 Multivitamins 1 TAB 1000 04/10 1000 AC 06/17 PO 0857 Omeprazole 40 MG DAILY AC 04/20 1325 AC 06/18 PO 0644 Oxcarbazepine 600 MG BID 04/10 1000 AC 06/17 PO 2056 Propranolol HCl 10 MG BID 04/10 1000 AC 06/17 PO 2056 Quetiapine Fumarate 400 MG AT BEDTIME 04/10 0215 AC 06/17 PO 2057 Sevelamer Carbonate 2,400 MG TIDAC 04/10 0800 AC 06/17 PO 1743 Sodium Polystyrene 60 ML QMON 05/21 0700 AC 06/18 Sulfonate PO 0644 Sodium Polystyrene 60 ML QSUN 05/20 0700 AC 06/17 Sulfonate PO 0504 Tiotropium [place] 1 PUF DAILY 04/10 1000 AC 06/17 INH 0902 Laboratory Tests 06/18/17 0747: Anion Gap 18 H, Estimated GFR 6 L, BUN/Creatinine Ratio 7.4, Calcium 9.1, CBC w Diff NO MAN DIFF REQ, RBC 4.13 L, MCV 89.7, MCH 29.4, MCHC 32.8 L, RDW 17.1 H, MPV 7.2 L, Gran % 61.8, Lymphocytes % 21.8, Monocytes % 9.3, Eosinophils % 6.6 H, Basophils % 0.5, Absolute Granulocytes 5.4, Absolute Lymphocytes 1.9, Absolute Monocytes 0.8 H, Absolute Eosinophils 0.6, Absolute Basophils 0 06/17/17 0715: Anion Gap 17 H, Estimated GFR 8 L, BUN/Creatinine Ratio 6.2 L, CBC w Diff NO MAN DIFF REQ, RBC 4.24 L, MCV 90.0, MCH 29.3, MCHC 32.5 L, RDW 17.9 H, MPV 7.0 L, Gran % 69.6, Lymphocytes % 16.1 L, Monocytes % 9.2, Eosinophils % 4.5, Basophils % 0.6, Absolute Granulocytes 6.8 H, Absolute Lymphocytes 1.6, Absolute Monocytes 0.9 H, Absolute Eosinophils 0.4, Absolute Basophils 0.1 06/16/17 1430: Anion Gap 16, Estimated GFR 6 L, BUN/Creatinine Ratio 7.0, Calcium 8.3 L, CBC w Diff NO MAN DIFF REQ, RBC 3.92 L, MCV 90.1, MCH 28.6, MCHC 31.8 L, RDW 17.1 H, MPV 7.1 L, Gran % 66.8, Lymphocytes % 18.8 L, Monocytes % 8.5, Eosinophils % 5.2 H, Basophils % 0.7, Absolute Granulocytes 6.2, Absolute Lymphocytes 1.8, Absolute Monocytes 0.8 H, Absolute Eosinophils 0.5, Absolute Basophils 0.1 Vital Signs Date Time Temp Pulse Resp B/P B/P Pulse O2 O2 Flow FiO2 Mean Ox Delivery Rate 06/18 0600 98.2 71 18 134/84 97 06/17 2056 76 148/102 06/17 2056 76 148/102 06/17 2056 76 148/102 06/17 1600 83 110/82 06/17 1401 98.3 83 20 110/82 96
[2017-06-18 15:11] VITALS: BP 126/78
[2017-06-18 21:19] VITALS: BP 148/82
[2017-06-19 05:46] VITALS: BP 140/80
--- NOTE | 2017-06-19 10:18 | PN- Att Addend ---
Attending Addendum Attending Brief Note No new complaints ambulating. Vital signs are stable no fever no new changes on physical. Continue hemodialysis is now on Wednesdays and Fridays, continue disposition plans. Intake & Output 06/19 1600 06/19 0400 06/18 1600 06/18 0400 06/17 1600 06/17 0400 Intake Total 925 911 5623 240 480 Output Total Balance 521 314 8746 240 480 Intake, IV 0 0 0 0 Intake, Oral 516 063 6100 240 480 Number 0 0 0 0 0 Bowel Movements Patient 206 lb 224 lb 217 lb Weight Weight Standing Scale Standing Scale Measurement Method Current Medications Sig/Grace Start time Last Medication Dose Route Stop Time Status Admin Acetaminophen 325 MG Q6-PRN PRN 04/09 2245 AC 06/17 PO 2349 Albuterol Sulfate 2 PUF Q4P PRN 04/09 2300 AC 06/13 INH 2001 Aripiprazole 400 MG Q30D 04/24 0900 AC 05/24 IM 1239 Aspirin Buffered 81 MG 0800 04/10 0800 AC 06/19 PO 0758 Atorvastatin Calcium 40 MG 1700 04/10 1700 AC 06/18 PO 1738 Benzocaine 1 GAVIN 4 TIMES/DAY PRN 06/14 1130 AC TOP Benztropine Mesylate 0.5 MG BID 04/10 1000 AC 06/19 PO 0924 Cinacalcet 60 MG DAILY 05/18 1000 AC 06/19 PO 0924 Epoetin [place] 4,000 UNIT Sunday .. 06/18 1011 AC IV Furosemide 80 MG 0800,2200 04/10 0800 AC 06/19 PO 0758 Gabapentin 300 MG AT BEDTIME 04/10 0215 AC 06/18 PO 2124 Hydralazine HCl 20 MG TID 05/08 1100 AC 06/19 PO 0924 Labetalol HCl 100 MG BID 04/10 1000 AC 06/19 PO 0924 Lactobacillus 1 CAP BID 05/24 2200 AC 06/19 Acidophilus PO 0924 Lamotrigine 150 MG DAILY 04/22 1000 AC 06/19 PO 0924 Lidocaine 15 ML TID PRN 06/14 1130 AC 06/14 PO 1414 Multivitamins 1 TAB 1000 04/10 1000 AC 06/19 PO 0924 Omeprazole 40 MG DAILY AC 04/20 1325 AC 06/19 PO 0617 Oxcarbazepine 600 MG BID 12/12 1000 AC 06/19 PO 0924 Propranolol HCl 10 MG BID 04/10 1000 AC 06/19 PO 0924 Quetiapine Fumarate 400 MG AT BEDTIME 04/10 0215 AC 06/18 PO 2124 Sevelamer Carbonate 2,400 MG TIDAC 04/10 0800 AC 06/19 PO 0758 Sodium Polystyrene 60 ML QMON 05/21 0700 AC 06/18 Sulfonate PO 0644 Sodium Polystyrene 60 ML QSUN 05/20 0700 AC 06/17 Sulfonate PO 0504 Tiotropium [place] 1 PUF DAILY 04/10 1000 AC 06/19 INH 0925 Laboratory Tests 06/18/17 0747: Anion Gap 18 H, Estimated GFR 6 L, BUN/Creatinine Ratio 7.4, Calcium 9.1, CBC w Diff NO MAN DIFF REQ, RBC 4.13 L, MCV 89.7, MCH 29.4, MCHC 32.8 L, RDW 17.1 H, MPV 7.2 L, Gran % 61.8, Lymphocytes % 21.8, Monocytes % 9.3, Eosinophils % 6.6 H, Basophils % 0.5, Absolute Granulocytes 5.4, Absolute Lymphocytes 1.9, Absolute Monocytes 0.8 H, Absolute Eosinophils 0.6, Absolute Basophils 0 06/17/17 0715: Anion Gap 17 H, Estimated GFR 8 L, BUN/Creatinine Ratio 6.2 L, CBC w Diff NO MAN DIFF REQ, RBC 4.24 L, MCV 90.0, MCH 29.3, MCHC 32.5 L, RDW 17.9 H, MPV 7.0 L, Gran % 69.6, Lymphocytes % 16.1 L, Monocytes % 9.2, Eosinophils % 4.5, Basophils % 0.6, Absolute Granulocytes 6.8 H, Absolute Lymphocytes 1.6, Absolute Monocytes 0.9 H, Absolute Eosinophils 0.4, Absolute Basophils 0.1 06/16/17 1430: Anion Gap 16, Estimated GFR 6 L, BUN/Creatinine Ratio 7.0, Calcium 8.3 L, CBC w Diff NO MAN DIFF REQ, RBC 3.92 L, MCV 90.1, MCH 28.6, MCHC 31.8 L, RDW 17.1 H, MPV 7.1 L, Gran % 66.8, Lymphocytes % 18.8 L, Monocytes % 8.5, Eosinophils % 5.2 H, Basophils % 0.7, Absolute Granulocytes 6.2, Absolute Lymphocytes 1.8, Absolute Monocytes 0.8 H, Absolute Eosinophils 0.5, Absolute Basophils 0.1 Vital Signs Date Time Temp Pulse Resp B/P B/P Pulse O2 O2 Flow FiO2 Mean Ox Delivery Rate 06/19 923 86 140/80 06/19 923 86 140/80 06/19 923 86 140/80 06/19 0546 98.0 86 20 140/80 96 06/18 2123 81 148/82 06/18 2122 81 148/82 06/18 2122 81 148/82 06/18 2118 98.4 81 18 148/82 97 06/18 1511 98.1 83 18 126/78 97 Room Air 06/18 1332 131/78 06/18 1331 131/78 06/18 1331 131/78
[2017-06-19 22:43] VITALS: BP 150/90
[2017-06-20 05:26] VITALS: BP 138/82
--- NOTE | 2017-06-20 09:34 | PN- Nephrology ---
Assessment/Plan Nephrology Assessment: Stable from dialysis standpoint but still waiting for placement. Suggestion: Continue on MWF hemodialysis schedule. Subjective Subjective: Patient with no new complaints today. Objective Vital Signs and I&Os Vital Signs Date Time Temp Pulse Resp B/P B/P Pulse O2 O2 Flow FiO2 Mean Ox Delivery Rate 06/20 0526 98.4 86 20 138/82 96 Room Air 06/19 2242 98.6 90 18 150/90 96 Room Air 06/19 2033 90 150/90 06/19 2032 90 150/90 06/19 2032 90 150/90 06/19 1635 79 150/96 Intake & Output 06/20 1600 06/20 0400 06/19 1600 06/19 0400 06/18 1600 06/18 0400 Intake Total 240 360 236 190 9935 240 Output Total Balance 240 360 008 767 7986 240 Intake, IV 0 0 0 0 Intake, Oral 240 360 287 327 0712 240 Number 0 0 0 0 Bowel Movements Patient 211 lb 206 lb 224 lb Weight Weight Standing Scale Measurement Method Physical Exam: NAD VS as above Lungs: clear CV: no rub Abd: non-tender Exts: no edema Neuro: A&O Current Medications: Current Medications Sig/Grace Start time Last Medication Dose Route Stop Time Status Admin Acetaminophen 325 MG Q6-PRN PRN 04/09 2245 AC 06/17 PO 2349 Albuterol Sulfate 2 PUF Q4P PRN 04/09 2300 AC 06/13 INH 2001 Aripiprazole 400 MG Q30D 04/24 0900 AC 05/24 IM 1239 Aspirin Buffered 81 MG 0800 04/10 0800 AC 06/20 PO 0808 Atorvastatin Calcium 40 MG 1700 04/10 1700 AC 06/19 PO 1635 Benzocaine 1 GAVIN 4 TIMES/DAY PRN 06/14 1130 AC TOP Benztropine Mesylate 0.5 MG BID 04/10 1000 AC 06/19 PO 203 Cinacalcet 60 MG DAILY 05/18 1000 AC 06/19 PO 09 Epoetin [place] 4,000 UNIT SUNDAY WED SUNDAY .. 06/18 1011 AC IV Furosemide 80 MG 0800,2200 04/10 0800 AC 06/20 PO 0808 Gabapentin 300 MG AT BEDTIME 04/10 0215 AC 06/19 PO 203 Hydralazine HCl 20 MG TID 01/09 1100 AC 06/19 PO 203 Labetalol HCl 100 MG BID 04/10 1000 AC 06/19 PO 203 Lactobacillus 1 CAP BID 05/24 2200 AC 06/19 Acidophilus PO 2031 Lamotrigine 150 MG DAILY 04/22 1000 AC 06/19 PO 0924 Lidocaine 15 ML TID PRN 06/14 1130 AC 06/14 PO 1414 Multivitamins 1 TAB 1000 04/10 1000 AC 06/19 PO 0924 Omeprazole 40 MG DAILY AC 04/20 1325 AC 06/20 PO 0648 Oxcarbazepine 600 MG BID 04/10 1000 AC 06/19 PO 203 Patient Medication 1 ED ONE ONE 06/19 1445 DC 06/19 Teaching ED 06/19 1446 1635 Propranolol HCl 10 MG BID 04/10 1000 AC 06/19 PO 203 Quetiapine Fumarate 400 MG AT BEDTIME 04/10 0215 AC 06/19 PO 203 Sevelamer Carbonate 2,400 MG TIDAC 04/10 0800 AC 06/20 PO 0808 Sodium Polystyrene 60 ML QMON 05/21 0700 AC 06/18 Sulfonate PO 0644 Sodium Polystyrene 60 ML QSUN 05/20 0700 AC 06/17 Sulfonate PO 0504 Tiotropium [place] 1 PUF DAILY 04/10 1000 AC 06/19 INH 0925 Results Pertinent Lab Results: Laboratory Tests 06/18 0747 Chemistry Sodium (137 - 145 mmol/L) 136 L Potassium (3.5 - 5.1 mmol/L) 5.4 H Chloride (98 - 107 mmol/L) 95 L Carbon Dioxide (22 - 30 mmol/L) 23 Anion Gap (5 - 16) 18 H BUN (9 - 20 mg/dL) 65 H Creatinine (0.7 - 1.2 mg/dL) 8.8 *H Estimated GFR (>60 ml/min) 6 L BUN/Creatinine Ratio (7 - 25 %) 7.4 Calcium (8.4 - 10.2 mg/dL) 9.1 Hematology CBC w Diff NO MAN DIFF REQ WBC (4.8 - 10.8 /CUMM) 8.8 RBC (4.70 - 6.10 /CUMM) 4.13 L Hgb (14.0 - 18.0 G/DL) 12.1 L Hct (42 - 52 %) 37.0 L MCV (80.0 - 94.0 FL) 89.7 MCH (27.0 - 31.0 PG) 29.4 MCHC (33.0 - 37.0 G/DL) 32.8 L RDW (11.5 - 14.5 %) 17.1 H Plt Count (130 - 400 /CUMM) 405 H MPV (7.4 - 10.4 FL) 7.2 L Gran % (42.2 - 75.2 %) 61.8 Lymphocytes % (20.5 - 51.1 %) 21.8 Monocytes % (1.7 - 9.3 %) 9.3 Eosinophils % (0 - 5 %) 6.6 H Basophils % (0.0 - 2.0 %) 0.5 Absolute Granulocytes (1.4 - 6.5 /CUMM) 5.4 Absolute Lymphocytes (1.2 - 3.4 /CUMM) 1.9 Absolute Monocytes (0.10 - 0.60 /CUMM) 0.8 H Absolute Eosinophils (0.0 - 0.7 /CUMM) 0.6 Absolute Basophils (0.0 - 0.2 /CUMM) 0
--- NOTE | 2017-06-20 09:53 | PN- Att Addend ---
Attending Addendum Attending Brief Note No new issues patient laying in bed comfortably with vital signs stable no fever no changes on physical exam. Patient continues his hemodialysis treatment times a week disposition plans continue. Intake & Output 06/20 1600 06/20 0400 06/19 1600 06/19 0400 06/18 1600 06/18 0400 Intake Total 240 360 259 190 2067 240 Output Total Balance 240 360 976 737 2192 240 Intake, IV 0 0 0 0 Intake, Oral 240 360 123 876 8028 240 Number 0 0 0 0 Bowel Movements Patient 211 lb 206 lb 224 lb Weight Weight Standing Scale Measurement Method Current Medications Sig/Grace Start time Last Medication Dose Route Stop Time Status Admin Acetaminophen 325 MG Q6-PRN PRN 04/09 2245 AC 06/17 PO 2349 Albuterol Sulfate 2 PUF Q4P PRN 04/09 2300 AC 06/13 INH 2001 Aripiprazole 400 MG Q30D 04/24 0900 AC 05/24 IM 1239 Aspirin Buffered 81 MG 0800 04/10 0800 AC 06/20 PO 0808 Atorvastatin Calcium 40 MG 1700 04/10 1700 AC 06/19 PO 1635 Benzocaine 1 GAVIN 4 TIMES/DAY PRN 06/14 1130 AC TOP Benztropine Mesylate 0.5 MG BID 04/10 1000 AC 06/19 PO 203 Cinacalcet 60 MG DAILY 05/18 1000 AC 06/19 PO 0924 Epoetin [place] 4,000 UNIT SUNDAY WED SUNDAY .. 06/18 1011 AC IV Furosemide 80 MG 0800,2200 04/10 0800 AC 06/20 PO 0808 Gabapentin 300 MG AT BEDTIME 04/10 0215 AC 06/19 PO 203 Hydralazine HCl 20 MG TID 05/08 1100 AC 06/19 PO 203 Labetalol HCl 100 MG BID 04/10 1000 AC 06/19 PO 203 Lactobacillus 1 CAP BID 05/24 2200 AC 06/19 Acidophilus PO 2031 Lamotrigine 150 MG DAILY 04/22 1000 AC 06/19 PO 0924 Lidocaine 15 ML TID PRN 06/14 1130 AC 06/14 PO 1414 Multivitamins 1 TAB 1000 04/10 1000 AC 06/19 PO 0924 Omeprazole 40 MG DAILY AC 04/20 1325 AC 06/20 PO 0648 Oxcarbazepine 600 MG BID 12/12 1000 AC 06/19 PO 203 Patient Medication 1 ED ONE ONE 06/19 1445 DC 06/19 Teaching ED 06/19 1446 1635 Propranolol HCl 10 MG BID 04/10 1000 AC 06/19 PO 2032 Quetiapine Fumarate 400 MG AT BEDTIME 04/10 0215 AC 06/19 PO 2030 Sevelamer Carbonate 2,400 MG TIDAC 04/10 0800 AC 06/20 PO 0808 Sodium Polystyrene 60 ML QMON 05/21 0700 AC 06/18 Sulfonate PO 0644 Sodium Polystyrene 60 ML QSUN 05/20 0700 AC 06/17 Sulfonate PO 0504 Tiotropium [place] 1 PUF DAILY 04/10 1000 AC 06/19 INH 0925 Laboratory Tests 06/18/17 0747: Anion Gap 18 H, Estimated GFR 6 L, BUN/Creatinine Ratio 7.4, Calcium 9.1, CBC w Diff NO MAN DIFF REQ, RBC 4.13 L, MCV 89.7, MCH 29.4, MCHC 32.8 L, RDW 17.1 H, MPV 7.2 L, Gran % 61.8, Lymphocytes % 21.8, Monocytes % 9.3, Eosinophils % 6.6 H, Basophils % 0.5, Absolute Granulocytes 5.4, Absolute Lymphocytes 1.9, Absolute Monocytes 0.8 H, Absolute Eosinophils 0.6, Absolute Basophils 0 Vital Signs Date Time Temp Pulse Resp B/P B/P Pulse O2 O2 Flow FiO2 Mean Ox Delivery Rate 06/20 0526 98.4 86 20 138/82 96 Room Air 06/19 2242 98.6 90 18 150/90 96 Room Air 06/19 2033 90 150/90 06/19 2032 90 150/90 06/19 2032 90 150/90 06/19 1635 79 150/96
[2017-06-20 13:36] VITALS: BP 160/96
[2017-06-20 15:51] LABS: ABSOLUTE BASOPHIL COUNT 0.1 /CUMM (0.0-0.2); ABSOLUTE EOSINOPHIL COUNT 0.5 /CUMM (0.0-0.7); ABSOLUTE GRANULOCYTE CT 5.6 /CUMM (1.4-6.5); ABSOLUTE LYMPH COUNT 1.8 /CUMM (1.2-3.4); ABSOLUTE MONOCYTE COUNT 0.8 /CUMM (0.10-0.60); EOSINOPHIL % 5.9 % (0-5); GRANULOCYTE % 62.8 % (42.2-75.2); MEAN CORPUSCULAR HGB 28.4 PG (27.0-31.0); MEAN CORPUSCULAR HGB CONC 31.6 G/DL (33.0-37.0); MEAN CORPUSCULAR VOLUME 89.9 FL (80.0-94.0); MEAN PLATELET VOLUME 7.1 FL (7.4-10.4); PLATELET COUNT 429 /CUMM (130-400); RED BLOOD CELL CT 4.11 /CUMM (4.70-6.10); WHITE BLOOD CELL COUNT 8.9 /CUMM (4.8-10.8)
[2017-06-20 19:04] VITALS: BP 140/76
[2017-06-20 21:40] VITALS: BP 138/86
[2017-06-21 06:04] VITALS: BP 138/86
--- NOTE | 2017-06-21 13:09 | PN- Att Addend ---
Attending Addendum Attending Brief Note No new issues vital signs are stable no fever. No changes on physical hemodialysis treatment times a week continue and disposition plans still in progress. Intake & Output 06/21 1600 06/21 0400 06/20 1600 06/20 0400 06/19 1600 06/19 0400 Intake Total 240 890 360 840 240 Output Total Balance 240 890 360 840 240 Intake, IV 0 0 0 Intake, Oral 240 890 360 840 240 Number 0 0 0 Bowel Movements Patient 213 lb 219 lb 211 lb 206 lb Weight Current Medications Sig/Grace Start time Last Medication Dose Route Stop Time Status Admin Acetaminophen 325 MG Q6-PRN PRN 04/09 2245 AC 06/17 PO 2349 Albuterol Sulfate 2 PUF Q4P PRN 04/09 2300 AC 06/13 INH 2001 Aripiprazole 400 MG Q30D 04/24 0900 AC 05/24 IM 1239 Aspirin Buffered 81 MG 0800 04/10 0800 AC 06/21 PO 1010 Atorvastatin Calcium 40 MG 1700 04/10 1700 AC 06/20 PO 1852 Benzocaine 1 GAVIN 4 TIMES/DAY PRN 06/14 1130 AC TOP Benztropine Mesylate 0.5 MG BID 04/10 1000 AC 06/21 PO 1011 Cinacalcet 60 MG DAILY 05/18 1000 AC 06/21 PO 1012 Epoetin [place] 4,000 UNIT Sunday .. 06/18 1011 AC IV Furosemide 80 MG 0800,2200 04/10 0800 AC 06/21 PO 1010 Gabapentin 300 MG AT BEDTIME 04/10 0215 AC 06/20 PO 2101 Hydralazine HCl 20 MG TID 05/08 1100 AC 06/21 PO 1011 Labetalol HCl 100 MG BID 04/10 1000 AC 06/21 PO 1011 Lactobacillus 1 CAP BID 05/24 2200 AC 06/21 Acidophilus PO 1011 Lamotrigine 150 MG DAILY 04/22 1000 AC 06/21 PO 1012 Lidocaine 15 ML TID PRN 06/14 1130 AC 06/14 PO 1414 Multivitamins 1 TAB 1000 04/10 1000 AC 06/21 PO 1011 Omeprazole 40 MG DAILY AC 04/20 1325 AC 06/21 PO 0601 Oxcarbazepine 600 MG BID 04/10 1000 AC 06/21 PO 1012 Propranolol HCl 10 MG BID 04/10 1000 AC 06/21 PO 1011 Quetiapine Fumarate 400 MG AT BEDTIME 04/10 0215 AC 06/20 PO 2101 Sevelamer Carbonate 2,400 MG TIDAC 04/10 0800 AC 06/21 PO 1307 Sodium Polystyrene 60 ML QMON 05/21 0700 AC 06/18 Sulfonate PO 0644 Sodium Polystyrene 60 ML QSUN 05/20 0700 AC 06/17 Sulfonate PO 0504 Tiotropium [place] 1 PUF DAILY 04/10 1000 AC 06/21 INH 1012 Laboratory Tests 06/20/17 1811: Anion Gap 16, Estimated GFR 17 L, BUN/Creatinine Ratio 5.7 L, Calcium 9.1, Phosphorus 2.7, Magnesium 2.0 06/20/17 1406: Anion Gap 20 H, Estimated GFR 6 L, BUN/Creatinine Ratio 7.2, Calcium 8.2 L, Phosphorus 3.8, Magnesium 2.2, CBC w Diff NO MAN DIFF REQ, RBC 4.11 L, MCV 89.9 , MCH 28.4, MCHC 31.6 L, RDW 18.0 H, MPV 7.1 L, Gran % 62.8, Lymphocytes % 20.9, Monocytes % 9.4 H, Eosinophils % 5.9 H, Basophils % 1.0, Absolute Granulocytes 5.6, Absolute Lymphocytes 1.8, Absolute Monocytes 0.8 H, Absolute Eosinophils 0.5, Absolute Basophils 0.1 Vital Signs Date Time Temp Pulse Resp B/P B/P Pulse O2 O2 Flow FiO2 Mean Ox Delivery Rate 06/21 1011 84 140/88 06/21 1011 84 140/88 06/21 1011 84 140/88 06/21 0604 98.2 76 20 138/86 100 Room Air 06/20 2140 98.3 81 20 138/86 97 Room Air 06/20 2101 81 138/86 06/20 2100 81 138/86 06/20 2100 81 138/86 06/20 1904 98.1 86 18 140/76 98 06/20 1336 98.3 84 20 160/96 97
[2017-06-21 15:13] VITALS: BP 124/74
[2017-06-21 21:45] VITALS: BP 148/96
[2017-06-22 06:25] VITALS: BP 146/98
--- NOTE | 2017-06-22 09:25 | PN- Nephrology ---
Assessment/Plan Nephrology Assessment: Tolerating dialysis well Suggestion: UF 4 liters. Subjective Subjective: Patient undergoing dialysis, no new complaints. Feels well. Objective Vital Signs and I&Os Vital Signs Date Time Temp Pulse Resp B/P B/P Pulse O2 O2 Flow FiO2 Mean Ox Delivery Rate 06/22 0625 98.4 75 18 146/98 97 Room Air 06/21 2154 91 148/96 06/21 215 91 148/96 06/21 2153 91 148/96 06/21 2144 98.8 91 20 148/96 96 Room Air 06/21 1819 84 156/88 06/21 1513 98.4 89 20 124/74 98 Room Air 06/21 1011 84 140/88 06/21 1011 84 140/88 06/21 1011 84 140/88 Intake & Output 06/22 1600 06/22 0400 06/21 1600 06/21 0400 06/20 1600 06/20 0400 Intake Total 120 720 720 240 890 360 Output Total Balance 120 720 720 240 890 360 Intake, IV 0 Intake, Oral 120 720 720 240 890 360 Number 0 0 Bowel Movements Patient 212 lb 213 lb 219 lb 211 lb Weight Physical Exam: NAD VS as above Lungs: clear CV: no rub Abd: non-tender Exts: no edema Neuro: A&O Current Medications: Current Medications Sig/Grace Start time Last Medication Dose Route Stop Time Status Admin Acetaminophen 325 MG Q6-PRN PRN 04/09 2245 AC 06/17 PO 2349 Albuterol Sulfate 2 PUF Q4P PRN 04/09 2300 AC 06/13 INH 2001 Aripiprazole 400 MG Q30D 04/24 09 AC 05/24 IM 1239 Aspirin Buffered 81 MG 0800 04/10 0800 AC 06/21 PO 1010 Atorvastatin Calcium 40 MG 1700 04/10 1700 AC 06/21 PO 1819 Benzocaine 1 GAVIN 4 TIMES/DAY PRN 06/14 1130 AC TOP Benztropine Mesylate 0.5 MG BID 04/10 1000 AC 06/21 PO 2154 Cinacalcet 60 MG DAILY 05/18 1000 AC 06/21 PO 1012 Epoetin [place] 4,000 UNIT Sunday .. 06/18 1011 AC IV Furosemide 80 MG 0800,2200 04/10 08 AC 06/21 PO 2154 Gabapentin 300 MG AT BEDTIME 04/10 0215 AC 06/21 PO 215 Hydralazine HCl 20 MG TID 05/08 1100 AC 06/21 PO 215 Labetalol HCl 100 MG BID 04/10 1000 AC 06/21 PO 2155 Lactobacillus 1 CAP BID 05/24 2200 AC 06/21 Acidophilus PO 215 Lamotrigine 150 MG DAILY 04/22 1000 AC 06/21 PO 1012 Lidocaine 15 ML TID PRN 06/14 1130 AC 06/14 PO 1414 Multivitamins 1 TAB 1000 04/10 1000 AC 06/22 PO 0823 Omeprazole 40 MG DAILY AC 04/20 1325 AC 06/22 PO 0618 Oxcarbazepine 600 MG BID 04/10 1000 AC 06/21 PO 215 Propranolol HCl 10 MG BID 04/10 1000 AC 06/21 PO 215 Quetiapine Fumarate 400 MG AT BEDTIME 04/10 0215 AC 06/21 PO 2155 Sevelamer Carbonate 2,400 MG TIDAC 04/10 0800 AC 06/22 PO 0823 Sodium Polystyrene 60 ML QMON 05/21 0700 AC 06/18 Sulfonate PO 0644 Sodium Polystyrene 60 ML QSUN 05/20 0700 AC 06/17 Sulfonate PO 0504 Tiotropium [place] 1 PUF DAILY 04/10 1000 AC 06/21 INH 1012 Results Pertinent Lab Results: Laboratory Tests 06/20 06/20 1811 1406 Chemistry Sodium (137 - 145 mmol/L) 139 133 L Potassium (3.5 - 5.1 mmol/L) 3.9 5.9 H Chloride (98 - 107 mmol/L) 97 L 91 L Carbon Dioxide (22 - 30 mmol/L) 26 21 L Anion Gap (5 - 16) 16 20 H BUN (9 - 20 mg/dL) 21 H 65 H Creatinine (0.7 - 1.2 mg/dL) 3.7 H 9.0 *H Estimated GFR (>60 ml/min) 17 L 6 L BUN/Creatinine Ratio (7 - 25 %) 5.7 L 7.2 Calcium (8.4 - 10.2 mg/dL) 9.1 8.2 L Phosphorus (2.5 - 4.5 mg/dL) 2.7 3.8 Magnesium (1.6 - 2.3 mg/dL) 2.0 2.2 Hematology CBC w Diff NO MAN DIFF REQ WBC (4.8 - 10.8 /CUMM) 8.9 RBC (4.70 - 6.10 /CUMM) 4.11 L Hgb (14.0 - 18.0 G/DL) 11.7 L Hct (42 - 52 %) 37.0 L MCV (80.0 - 94.0 FL) 89.9 MCH (27.0 - 31.0 PG) 28.4 MCHC (33.0 - 37.0 G/DL) 31.6 L RDW (11.5 - 14.5 %) 18.0 H Plt Count (130 - 400 /CUMM) 429 H MPV (7.4 - 10.4 FL) 7.1 L Gran % (42.2 - 75.2 %) 62.8 Lymphocytes % (20.5 - 51.1 %) 20.9 Monocytes % (1.7 - 9.3 %) 9.4 H Eosinophils % (0 - 5 %) 5.9 H Basophils % (0.0 - 2.0 %) 1.0 Absolute Granulocytes (1.4 - 6.5 /CUMM) 5.6 Absolute Lymphocytes (1.2 - 3.4 /CUMM) 1.8 Absolute Monocytes (0.10 - 0.60 /CUMM) 0.8 H Absolute Eosinophils (0.0 - 0.7 /CUMM) 0.5 Absolute Basophils (0.0 - 0.2 /CUMM) 0.1
[2017-06-22 10:00] LABS: ABSOLUTE BASOPHIL COUNT 0.1 /CUMM (0.0-0.2); ABSOLUTE EOSINOPHIL COUNT 0.5 /CUMM (0.0-0.7); ABSOLUTE GRANULOCYTE CT 5.1 /CUMM (1.4-6.5); ABSOLUTE LYMPH COUNT 1.7 /CUMM (1.2-3.4); ABSOLUTE MONOCYTE COUNT 0.8 /CUMM (0.10-0.60); BASOPHIL % 1.1 % (0.0-2.0); EOSINOPHIL % 5.6 % (0-5); GRANULOCYTE % 62.4 % (42.2-75.2); HEMATOCRIT 35.8 % (42-52); MEAN CORPUSCULAR HGB 29.5 PG (27.0-31.0); MEAN CORPUSCULAR HGB CONC 32.8 G/DL (33.0-37.0); MEAN CORPUSCULAR VOLUME 89.8 FL (80.0-94.0); MEAN PLATELET VOLUME 6.9 FL (7.4-10.4); PLATELET COUNT 376 /CUMM (130-400); RBC DISTRIBUTION WIDTH 17.9 % (11.5-14.5); RED BLOOD CELL CT 3.98 /CUMM (4.70-6.10); WHITE BLOOD CELL COUNT 8.2 /CUMM (4.8-10.8)
--- NOTE | 2017-06-22 10:55 | PN- Att Addend ---
Attending Addendum Attending Brief Note No new complaints. Vital signs are stable no fever. No changes on physical. Hemodialysis in progress. Continue with treatments and disposition plans. Intake & Output 06/22 1600 06/22 0400 06/21 1600 06/21 0400 06/20 1600 06/20 0400 Intake Total 120 720 720 240 890 360 Output Total Balance 120 720 720 240 890 360 Intake, IV 0 Intake, Oral 120 720 720 240 890 360 Number 0 0 Bowel Movements Patient 212 lb 213 lb 219 lb 211 lb Weight Current Medications Sig/Grace Start time Last Medication Dose Route Stop Time Status Admin Acetaminophen 325 MG Q6-PRN PRN 04/09 2245 AC 06/17 PO 2349 Albuterol Sulfate 2 PUF Q4P PRN 04/09 2300 AC 06/13 INH 2001 Aripiprazole 400 MG Q30D 04/24 0900 AC 05/24 IM 1239 Aspirin Buffered 81 MG 0800 04/10 0800 AC 06/21 PO 1010 Atorvastatin Calcium 40 MG 1700 04/10 1700 AC 06/21 PO 1819 Benzocaine 1 GAVIN 4 TIMES/DAY PRN 06/14 1130 AC TOP Benztropine Mesylate 0.5 MG BID 04/10 1000 AC 06/21 PO 2154 Cinacalcet 60 MG DAILY 05/18 1000 AC 06/21 PO 1012 Epoetin [place] 4,000 UNIT SUNDAY WED SUNDAY .. 06/18 1011 AC IV Furosemide 80 MG 0800,2200 04/10 0800 AC 06/21 PO 2154 Gabapentin 300 MG AT BEDTIME 04/10 0215 AC 06/21 PO 2154 Hydralazine HCl 20 MG TID 05/08 1100 AC 06/21 PO 2154 Labetalol HCl 100 MG BID 04/10 1000 AC 06/21 PO 2155 Lactobacillus 1 CAP BID 05/24 2200 AC 06/21 Acidophilus PO 2154 Lamotrigine 150 MG DAILY 04/22 1000 AC 06/21 PO 1012 Lidocaine 15 ML TID PRN 06/14 1130 AC 06/14 PO 1414 Multivitamins 1 TAB 1000 04/10 1000 AC 06/22 PO 0823 Omeprazole 40 MG DAILY AC 04/20 1325 AC 06/22 PO 0618 Oxcarbazepine 600 MG BID 04/10 1000 AC 06/21 PO 2154 Propranolol HCl 10 MG BID 04/10 1000 AC 06/21 PO 2154 Quetiapine Fumarate 400 MG AT BEDTIME 04/10 0215 AC 06/21 PO 2155 Sevelamer Carbonate 2,400 MG TIDAC 04/10 0800 AC 06/22 PO 0823 Sodium Polystyrene 60 ML QMON 05/21 0700 AC 06/18 Sulfonate PO 0644 Sodium Polystyrene 60 ML QSUN 05/20 0700 AC 06/17 Sulfonate PO 0504 Tiotropium [place] 1 PUF DAILY 04/10 1000 AC 06/21 INH 1012 Laboratory Tests 06/22/17 0838: Anion Gap 18 H, Estimated GFR 6 L, BUN/Creatinine Ratio 6.7 L, Calcium 8.8, Phosphorus 4.1, Magnesium 2.3, CBC w Diff NO MAN DIFF REQ, RBC 3.98 L, MCV 89.8 , MCH 29.5, MCHC 32.8 L, RDW 17.9 H, MPV 6.9 L, Gran % 62.4, Lymphocytes % 20.9, Monocytes % 10.0 H, Eosinophils % 5.6 H, Basophils % 1.1, Absolute Granulocytes 5.1, Absolute Lymphocytes 1.7, Absolute Monocytes 0.8 H, Absolute Eosinophils 0.5, Absolute Basophils 0.1 06/20/17 1811: Anion Gap 16, Estimated GFR 17 L, BUN/Creatinine Ratio 5.7 L, Calcium 9.1, Phosphorus 2.7, Magnesium 2.0 06/20/17 1406: Anion Gap 20 H, Estimated GFR 6 L, BUN/Creatinine Ratio 7.2, Calcium 8.2 L, Phosphorus 3.8, Magnesium 2.2, CBC w Diff NO MAN DIFF REQ, RBC 4.11 L, MCV 89.9 , MCH 28.4, MCHC 31.6 L, RDW 18.0 H, MPV 7.1 L, Gran % 62.8, Lymphocytes % 20.9, Monocytes % 9.4 H, Eosinophils % 5.9 H, Basophils % 1.0, Absolute Granulocytes 5.6, Absolute Lymphocytes 1.8, Absolute Monocytes 0.8 H, Absolute Eosinophils 0.5, Absolute Basophils 0.1 Vital Signs Date Time Temp Pulse Resp B/P B/P Pulse O2 O2 Flow FiO2 Mean Ox Delivery Rate 06/22 0525 98.4 75 18 146/98 97 Room Air 06/21 2154 91 148/96 06/21 2153 91 148/96 06/21 2153 91 148/96 06/21 2145 98.8 91 20 148/96 96 Room Air 06/21 1819 84 156/88 06/21 1513 98.4 89 20 124/74 98 Room Air
[2017-06-22 15:00] VITALS: BP 158/84
--- NOTE | 2017-06-22 17:55 | Incdntl Nt Psy ---
Incidental Note Notation: The patient is due for his Abilify Maintena injection on 06/23/18, which pharmacy will send to the floor. Dr. Avery has suggested [facility] in [place], [place] as a possible facility for the patient. The patient would also be willing to go to [facility], if a bed is available.
[2017-06-22 20:34] VITALS: BP 116/72
[2017-06-23 06:19] VITALS: BP 128/84
[2017-06-23 15:01] VITALS: BP 126/78
--- NOTE | 2017-06-23 17:38 | PN- Att Addend ---
Attending Addendum Attending Brief Note No new complaints and vital signs are stable no fever and no changes on physical exam patient ambulating with no problems continue hemodialysis treatment times a week and medications disposition plans continue. Intake & Output 06/23 1600 06/23 0400 06/22 1600 06/22 0400 06/21 1600 06/21 0400 Intake Total 740 480 720 720 720 240 Output Total Balance 740 480 720 720 720 240 Intake, IV 0 Intake, Oral 740 480 720 720 720 240 Number 0 0 Bowel Movements Patient 217 lb 212 lb 213 lb 219 lb Weight Weight Bed scale Measurement Method Current Medications Sig/Grace Start time Last Medication Dose Route Stop Time Status Admin Acetaminophen 325 MG Q6-PRN PRN 04/09 2245 AC 06/17 PO 2349 Albuterol Sulfate 2 PUF Q4P PRN 04/09 2300 AC 06/13 INH 2001 Aripiprazole 400 MG Q30D 04/24 0900 AC 06/23 IM 0942 Aspirin Buffered 81 MG 0800 04/10 0800 AC 06/23 PO 0947 Atorvastatin Calcium 40 MG 1700 04/10 1700 AC 06/22 PO 1716 Benzocaine 1 GAVIN 4 TIMES/DAY PRN 06/14 1130 AC TOP Benztropine Mesylate 0.5 MG BID 04/10 1000 AC 06/23 PO 0951 Cinacalcet 60 MG DAILY 05/18 1000 AC 06/23 PO 0951 Epoetin [place] 4,000 UNIT Sunday .. 06/18 1011 AC IV Furosemide 80 MG 0800,2200 04/10 0800 AC 06/23 PO 0947 Gabapentin 300 MG AT BEDTIME 04/10 0215 AC 06/22 PO 2120 Hydralazine HCl 20 MG TID 05/08 1100 AC 06/23 PO 0950 Labetalol HCl 100 MG BID 04/10 1000 AC 06/23 PO 0946 Lactobacillus 1 CAP BID 05/24 2200 AC 06/23 Acidophilus PO 0951 Lamotrigine 150 MG DAILY 04/22 1000 AC 06/23 PO 1231 Lidocaine 15 ML TID PRN 06/14 1130 AC 06/14 PO 1414 Multivitamins 1 TAB 1000 04/10 1000 AC 06/23 PO 0951 Omeprazole 40 MG DAILY AC 04/20 1325 AC 06/23 PO 0456 Oxcarbazepine 600 MG BID 04/10 1000 AC 02/24 PO 0944 Propranolol HCl 10 MG BID 04/10 1000 AC 06/23 PO 0951 Quetiapine Fumarate 400 MG AT BEDTIME 04/10 0215 AC 06/22 PO 2120 Sevelamer Carbonate 2,400 MG TIDAC 04/10 0800 AC 06/23 PO 1231 Sodium Polystyrene 60 ML QMON 05/21 0700 AC 06/18 Sulfonate PO 0644 Sodium Polystyrene 60 ML QSUN 05/20 0700 AC 06/17 Sulfonate PO 0504 Tiotropium Elim 1 PUF DAILY 04/10 1000 AC 06/23 INH 0944 Laboratory Tests 06/22/17 0838: Anion Gap 18 H, Estimated GFR 6 L, BUN/Creatinine Ratio 6.7 L, Calcium 8.8, Phosphorus 4.1, Magnesium 2.3, CBC w Diff NO MAN DIFF REQ, RBC 3.98 L, MCV 89.8 , MCH 29.5, MCHC 32.8 L, RDW 17.9 H, MPV 6.9 L, Gran % 62.4, Lymphocytes % 20.9, Monocytes % 10.0 H, Eosinophils % 5.6 H, Basophils % 1.1, Absolute Granulocytes 5.1, Absolute Lymphocytes 1.7, Absolute Monocytes 0.8 H, Absolute Eosinophils 0.5, Absolute Basophils 0.1 06/20/17 181: Anion Gap 16, Estimated GFR 17 L, BUN/Creatinine Ratio 5.7 L, Calcium 9.1, Phosphorus 2.7, Magnesium 2.0 Vital Signs Date Time Temp Pulse Resp B/P B/P Pulse O2 O2 Flow FiO2 Mean Ox Delivery Rate 06/23 1501 97.9 78 18 126/78 97 06/23 0951 90 132/90 06/23 0946 90 132/90 06/23 0619 99.1 82 20 128/84 98 06/22 2120 82 128/72 06/22 2118 82 128/72 06/22 2117 82 128/72 06/22 2033 98.0 82 20 116/72 96 Room Air
[2017-06-23 21:45] VITALS: BP 150/88
[2017-06-24 06:45] VITALS: BP 152/90
[2017-06-24 15:10] VITALS: BP 122/78
--- NOTE | 2017-06-24 16:17 | PN- Att Addend ---
Attending Addendum Attending Brief Note No new issues. They'll signs are stable no fever. No changes on physical examination her continue present treatment hemodialysis on Sunday disposition plans continue Intake & Output 06/24 0400 06/23 1600 06/23 0400 06/22 1600 06/22 0400 Intake Total 240 240 740 480 720 720 Output Total Balance 240 240 740 480 720 720 Intake, Oral 240 240 740 480 720 720 Number 0 Bowel Movements Patient 225 lb 217 lb 212 lb Weight Weight Standing Scale Bed scale Measurement Method Current Medications Sig/Grace Start time Last Medication Dose Route Stop Time Status Admin Acetaminophen 325 MG Q6-PRN PRN 04/09 2245 AC 06/17 PO 2349 Albuterol Sulfate 2 PUF Q4P PRN 04/09 2300 AC 06/13 INH 2001 Aripiprazole 400 MG Q30D 04/24 0900 AC 06/23 IM 0942 Aspirin Buffered 81 MG 0800 04/10 0800 AC 06/24 PO 0842 Atorvastatin Calcium 40 MG 1700 04/10 1700 AC 06/23 PO 1752 Benzocaine 1 GAVIN 4 TIMES/DAY PRN 06/14 1130 AC TOP Benztropine Mesylate 0.5 MG BID 04/10 1000 AC 06/24 PO 0840 Cinacalcet 60 MG DAILY 05/18 1000 AC 06/24 PO 0842 Epoetin [place] 4,000 UNIT Sunday .. 06/18 1011 AC IV Furosemide 80 MG 0800,0 04/10 0800 AC 06/24 PO 0842 Gabapentin 300 MG AT BEDTIME 04/10 0215 AC 06/23 PO 2127 Hydralazine HCl 20 MG TID 05/08 1100 AC 06/24 PO 0840 Labetalol HCl 100 MG BID 04/10 1000 AC 06/24 PO 0841 Lactobacillus 1 CAP BID 05/24 2200 AC 06/24 Acidophilus PO 0840 Lamotrigine 150 MG DAILY 04/22 1000 AC 06/24 PO 0841 Lidocaine 15 ML TID PRN 06/14 1130 AC 06/14 PO 1414 Multivitamins 1 TAB 1000 04/10 1000 AC 06/24 PO 0840 Omeprazole 40 MG DAILY AC 04/20 1325 AC 06/24 PO 0842 Oxcarbazepine 600 MG BID 04/10 1000 AC 06/24 PO 0841 Propranolol HCl 10 MG BID 04/10 1000 AC 06/24 PO 0840 Quetiapine Fumarate 400 MG AT BEDTIME 04/10 0215 AC 06/23 PO 2126 Sevelamer Carbonate 2,400 MG TIDAC 04/10 0800 AC 06/24 PO 1234 Sodium Polystyrene 60 ML QMON 05/21 0700 AC 06/18 Sulfonate PO 0644 Sodium Polystyrene 60 ML QSUN 05/20 0700 AC 06/24 Sulfonate PO 0526 Tiotropium [place] 1 PUF DAILY 04/10 1000 AC 06/24 INH 0842 Laboratory Tests 06/22/17 0838: Anion Gap 18 H, Estimated GFR 6 L, BUN/Creatinine Ratio 6.7 L, Calcium 8.8, Phosphorus 4.1, Magnesium 2.3, CBC w Diff NO MAN DIFF REQ, RBC 3.98 L, MCV 89.8 , MCH 29.5, MCHC 32.8 L, RDW 17.9 H, MPV 6.9 L, Gran % 62.4, Lymphocytes % 20.9, Monocytes % 10.0 H, Eosinophils % 5.6 H, Basophils % 1.1, Absolute Granulocytes 5.1, Absolute Lymphocytes 1.7, Absolute Monocytes 0.8 H, Absolute Eosinophils 0.5, Absolute Basophils 0.1 Vital Signs Date Time Temp Pulse Resp B/P B/P Pulse O2 O2 Flow FiO2 Mean Ox Delivery Rate 06/24 1510 98.3 90 18 122/78 96 Room Air 06/24 0841 76 132/72 06/24 0840 76 132/72 06/24 0840 76 132/72 06/24 0645 97.6 80 20 152/90 97 06/23 2144 98.8 86 18 150/88 96 06/23 2127 86 150/88 06/23 2125 86 150/88 06/23 2125 86 150/88 06/23 1753 140/82
[2017-06-24 21:48] VITALS: BP 138/98
[2017-06-25 06:40] VITALS: BP 160/100
[2017-06-25 09:03] LABS: ABSOLUTE BASOPHIL COUNT 0.1 /CUMM (0.0-0.2); ABSOLUTE EOSINOPHIL COUNT 0.5 /CUMM (0.0-0.7); ABSOLUTE GRANULOCYTE CT 5.4 /CUMM (1.4-6.5); ABSOLUTE LYMPH COUNT 1.5 /CUMM (1.2-3.4); ABSOLUTE MONOCYTE COUNT 0.6 /CUMM (0.10-0.60); BASOPHIL % 0.8 % (0.0-2.0); EOSINOPHIL % 6.6 % (0-5); GRANULOCYTE % 66.1 % (42.2-75.2); HEMATOCRIT 36.5 % (42-52); MEAN CORPUSCULAR HGB 29.2 PG (27.0-31.0); MEAN CORPUSCULAR HGB CONC 32.8 G/DL (33.0-37.0); MEAN CORPUSCULAR VOLUME 89.2 FL (80.0-94.0); MEAN PLATELET VOLUME 7.1 FL (7.4-10.4); PLATELET COUNT 393 /CUMM (130-400); RBC DISTRIBUTION WIDTH 17.4 % (11.5-14.5); WHITE BLOOD CELL COUNT 8.2 /CUMM (4.8-10.8)
--- NOTE | 2017-06-25 09:51 | PN- Nephrology ---
Assessment/Plan Nephrology Assessment: 1. End-stage renal disease. Next Dialysis will be on Sunday 2. BP- 3. New current management while awaiting disposition Suggestion: 1. Hemodialysis on Sunday. He was on a Sunday schedule but became clear that is not returning to he and from whence he came. Subjective Subjective: The patient was seen with hemodialysis in progress. He looks quite well. Objective Vital Signs and I&Os Vital Signs Date Time Temp Pulse Resp B/P B/P Pulse O2 O2 Flow FiO2 Mean Ox Delivery Rate 06/25 0640 97.6 79 20 160/100 97 06/24 2148 98.1 78 18 138/98 96 Room Air 06/24 204 78 138/98 06/24 2044 78 138/98 06/24 204 78 138/98 06/24 1821 72 168/108 06/24 1510 98.3 90 18 122/78 96 Room Air Intake & Output 06/25 1600 06/25 0400 06/24 1600 06/24 0400 06/23 1600 06/23 0400 Intake Total 480 240 840 240 740 480 Output Total Balance 480 240 840 240 740 480 Intake, IV 0 0 Intake, Oral 480 240 840 240 740 480 Number 0 1 Bowel Movements Patient 231 lb 225 lb 217 lb Weight Weight Standing Scale Standing Scale Bed scale Measurement Method Physical Exam: General Appearance: well developed/nourished, no apparent distress, alert, awake Head: atraumatic, normal appearance Neck: normal inspection, supple, trachea mid line, no midline tenderness Respiratory: normal breath sounds, chest non-tender anteriorly Cardiovascular: regular rate/rhythm, edema Abdomen: normal bowel sounds, soft, non-tender, no organomegaly Back: normal inspection, normal range of motion Extremities: normal inspection, no edema Neurologic/Psychiatric: no motor/sensory deficits, awake, alert Skin: intact, normal color Current Medications: Current Medications Sig/Grace Start time Last Medication Dose Route Stop Time Status Admin Acetaminophen 325 MG Q6-PRN PRN 04/09 2245 AC 06/17 PO 2349 Albuterol Sulfate 2 PUF Q4P PRN 04/09 2300 AC 06/13 INH 2001 Aripiprazole 400 MG Q30D 04/24 09 AC 06/23 IM 0942 Aspirin Buffered 81 MG 04/10 08 AC 06/24 PO 0842 Atorvastatin Calcium 40 MG 1700 04/10 1700 AC 06/24 PO 1822 Benzocaine 1 GAVIN 4 TIMES/DAY PRN 06/14 1130 AC TOP Benztropine Mesylate 0.5 MG BID 04/10 1000 AC 06/24 PO 2044 Cinacalcet 60 MG DAILY 05/18 1000 AC 06/24 PO 0842 Epoetin [place] 4,000 UNIT Sunday .. 06/18 1011 AC IV Furosemide 80 MG 0800,04/10 08 AC 06/24 PO 2044 Gabapentin 300 MG AT BEDTIME 04/10 0215 AC 06/24 PO 2044 Hydralazine HCl 20 MG TID 05/08 1100 AC 06/24 PO 2043 Labetalol HCl 100 MG BID 04/10 1000 AC 06/24 PO 2045 Lactobacillus 1 CAP BID 05/24 2200 AC 06/24 Acidophilus PO 2044 Lamotrigine 150 MG DAILY 04/22 1000 AC 06/24 PO 0841 Lidocaine 15 ML TID PRN 06/14 1130 AC 06/14 PO 1414 Multivitamins 1 TAB 1000 04/10 1000 AC 06/24 PO 0840 Omeprazole 40 MG DAILY AC 04/20 1325 AC 06/25 PO 0644 Oxcarbazepine 600 MG BID 04/10 1000 AC 06/24 PO 2045 Propranolol HCl 10 MG BID 04/10 1000 AC 06/24 PO 2044 Quetiapine Fumarate 400 MG AT BEDTIME 04/10 0215 AC 06/24 PO 2044 Sevelamer Carbonate 2,400 MG TIDAC 04/10 08 AC 06/24 PO 1820 Sodium Polystyrene 60 ML QMON 05/21 0700 AC 06/25 Sulfonate PO 0644 Sodium Polystyrene 60 ML QSUN 05/20 0700 AC 06/24 Sulfonate PO 0526 Tiotropium [place] 1 PUF DAILY 04/10 1000 AC 06/24 INH 0842 Results Pertinent Lab Results: Laboratory Tests 06/25 0750 Chemistry Sodium (137 - 145 mmol/L) 135 L Potassium (3.5 - 5.1 mmol/L) 5.5 H Chloride (98 - 107 mmol/L) 96 L Carbon Dioxide (22 - 30 mmol/L) 20 L Anion Gap (5 - 16) 20 H BUN (9 - 20 mg/dL) 76 H Creatinine (0.7 - 1.2 mg/dL) 10.3 *H Estimated GFR (>60 ml/min) 5 L BUN/Creatinine Ratio (7 - 25 %) 7.4 Calcium (8.4 - 10.2 mg/dL) 8.8 Hematology CBC w Diff NO MAN DIFF REQ WBC (4.8 - 10.8 /CUMM) 8.2 RBC (4.70 - 6.10 /CUMM) 4.10 L Hgb (14.0 - 18.0 G/DL) 12.0 L Hct (42 - 52 %) 36.5 L MCV (80.0 - 94.0 FL) 89.2 MCH (27.0 - 31.0 PG) 29.2 MCHC (33.0 - 37.0 G/DL) 32.8 L RDW (11.5 - 14.5 %) 17.4 H Plt Count (130 - 400 /CUMM) 393 MPV (7.4 - 10.4 FL) 7.1 L Gran % (42.2 - 75.2 %) 66.1 Lymphocytes % (20.5 - 51.1 %) 18.7 L Monocytes % (1.7 - 9.3 %) 7.8 Eosinophils % (0 - 5 %) 6.6 H Basophils % (0.0 - 2.0 %) 0.8 Absolute Granulocytes (1.4 - 6.5 /CUMM) 5.4 Absolute Lymphocytes (1.2 - 3.4 /CUMM) 1.5 Absolute Monocytes (0.10 - 0.60 /CUMM) 0.6 Absolute Eosinophils (0.0 - 0.7 /CUMM) 0.5 Absolute Basophils (0.0 - 0.2 /CUMM) 0.1
--- NOTE | 2017-06-25 11:03 | PN- Att Addend ---
Attending Addendum Attending Brief Note No new complaints, hemodialysis in progress. Vital signs are stable no fever. No new changes continue treatment and disposition plans continue. Intake & Output 06/25 1600 06/25 0400 06/24 1600 06/24 0400 06/23 1600 06/23 0400 Intake Total 480 240 840 240 740 480 Output Total Balance 480 240 840 240 740 480 Intake, IV 0 0 Intake, Oral 480 240 840 240 740 480 Number 0 1 Bowel Movements Patient 231 lb 225 lb 217 lb Weight Weight Standing Scale Standing Scale Bed scale Measurement Method Current Medications Sig/Grace Start time Last Medication Dose Route Stop Time Status Admin Acetaminophen 325 MG Q6-PRN PRN 04/09 2245 AC 06/17 PO 2349 Albuterol Sulfate 2 PUF Q4P PRN 04/09 2300 AC 06/13 INH 2001 Aripiprazole 400 MG Q30D 04/24 0900 AC 06/23 IM 0942 Aspirin Buffered 81 MG 0800 04/10 0800 AC 06/24 PO 0842 Atorvastatin Calcium 40 MG 1700 04/10 1700 AC 06/24 PO 1822 Benzocaine 1 GAVIN 4 TIMES/DAY PRN 06/14 1130 AC TOP Benztropine Mesylate 0.5 MG BID 04/10 1000 AC 06/24 PO 204 Cinacalcet 60 MG DAILY 05/18 1000 AC 06/24 PO 0842 Epoetin [place] 4,000 UNIT SUNDAY WED SUNDAY .. 06/18 1011 AC IV Furosemide 80 MG 0800,2200 04/10 0800 AC 06/24 PO 2044 Gabapentin 300 MG AT BEDTIME 04/10 0215 AC 06/24 PO 2044 Hydralazine HCl 20 MG TID 05/08 1100 AC 06/24 PO 2043 Labetalol HCl 100 MG BID 04/10 1000 AC 06/24 PO 2045 Lactobacillus 1 CAP BID 05/24 2200 AC 06/24 Acidophilus PO 204 Lamotrigine 150 MG DAILY 04/22 1000 AC 06/24 PO 0841 Lidocaine 15 ML TID PRN 06/14 1130 AC 06/14 PO 1414 Multivitamins 1 TAB 1000 04/10 1000 AC 06/24 PO 0840 Omeprazole 40 MG DAILY AC 04/20 1325 AC 06/25 PO 0644 Oxcarbazepine 600 MG BID 04/10 1000 AC 06/24 PO 2045 Propranolol HCl 10 MG BID 04/10 1000 AC 06/24 PO 2043 Quetiapine Fumarate 400 MG AT BEDTIME 04/10 0215 AC 06/24 PO 2043 Sevelamer Carbonate 2,400 MG TIDAC 04/10 0800 AC 06/24 PO 1820 Sodium Polystyrene 60 ML QMON 05/21 0700 AC 06/25 Sulfonate PO 0644 Sodium Polystyrene 60 ML QSUN 05/20 0700 AC 06/24 Sulfonate PO 0526 Tiotropium [place] 1 PUF DAILY 04/10 1000 AC 06/24 INH 0842 Laboratory Tests 06/25/17 0750: Anion Gap 20 H, Estimated GFR 5 L, BUN/Creatinine Ratio 7.4, Calcium 8.8, CBC w Diff NO MAN DIFF REQ, RBC 4.10 L, MCV 89.2, MCH 29.2, MCHC 32.8 L, RDW 17.4 H, MPV 7.1 L, Gran % 66.1, Lymphocytes % 18.7 L, Monocytes % 7.8, Eosinophils % 6.6 H, Basophils % 0.8, Absolute Granulocytes 5.4, Absolute Lymphocytes 1.5, Absolute Monocytes 0.6, Absolute Eosinophils 0.5, Absolute Basophils 0.1 Vital Signs Date Time Temp Pulse Resp B/P B/P Pulse O2 O2 Flow FiO2 Mean Ox Delivery Rate 06/25 0640 97.6 79 20 160/100 97 06/24 2148 98.1 78 18 138/98 96 Room Air 06/24 2044 78 138/98 06/24 2043 78 138/98 06/24 2042 78 138/98 06/24 1821 72 168/108 06/24 1510 98.3 90 18 122/78 96 Room Air
[2017-06-25 12:55] VITALS: BP 138/80
[2017-06-25 23:14] VITALS: BP 134/64
[2017-06-26 06:18] VITALS: BP 148/62
--- NOTE | 2017-06-26 10:14 | PN- Att Addend ---
Attending Addendum Attending Brief Note No new issues. Vital signs stable no fever. No changes on physical. To continue present treatments. representative phlebotomy services continue working on insurance issues which might have been resolved and also continue looking for a place to go and range for outpatient hemodialysis. Intake & Output 06/26 1600 06/26 0400 06/25 1600 06/25 0400 06/24 1600 06/24 0400 Intake Total 240 240 980 240 840 240 Output Total Balance 240 240 980 240 840 240 Intake, IV 0 0 Intake, Oral 240 240 980 240 840 240 Number 0 1 Bowel Movements Patient 205 lb 222 lb 225 lb Weight Weight Standing Scale Standing Scale Measurement Method Current Medications Sig/Grace Start time Last Medication Dose Route Stop Time Status Admin Acetaminophen 325 MG Q6-PRN PRN 04/09 2245 AC 06/17 PO 2349 Albuterol Sulfate 2 PUF Q4P PRN 04/09 2300 AC 06/13 INH 2001 Aripiprazole 400 MG Q30D 04/24 09 AC 06/23 IM 0942 Aspirin Buffered 81 MG 0804/10 08 AC 06/26 PO 0815 Atorvastatin Calcium 40 MG 1700 04/10 1700 AC 06/25 PO 1737 Benzocaine 1 GAVIN 4 TIMES/DAY PRN 06/14 1130 AC TOP Benztropine Mesylate 0.5 MG BID 04/10 1000 AC 06/25 PO 2128 Cinacalcet 60 MG DAILY 05/18 1000 AC 06/25 PO 1247 Epoetin [place] 8,000 UNIT MoWeFr PRN 06/25 1130 AC IV Epoetin [place] 4,000 UNIT Sunday .. 06/18 1011 DC IV Furosemide 80 MG 08,04/10 08 AC 06/26 PO 0815 Gabapentin 300 MG AT BEDTIME 04/10 0215 AC 06/25 PO 2128 Hydralazine HCl 20 MG TID 05/08 1100 AC 06/25 PO 2127 Labetalol HCl 100 MG BID 04/10 1000 AC 06/25 PO 212 Lactobacillus 1 CAP BID 05/24 2199 AC 06/25 Acidophilus PO 2128 Lamotrigine 150 MG DAILY 04/22 1000 AC 06/25 PO 1248 Lidocaine 15 ML TID PRN 06/14 1130 AC 06/14 PO 1414 Multivitamins 1 TAB 1000 04/10 1000 AC 06/25 PO 1248 Omeprazole 40 MG DAILY AC 04/20 1325 AC 06/26 PO 0541 Oxcarbazepine 600 MG BID 04/10 1000 AC 06/25 PO 2128 Propranolol HCl 10 MG BID 04/10 1000 AC 06/25 PO 2128 Quetiapine Fumarate 400 MG AT BEDTIME 04/10 0215 AC 06/25 PO 2128 Sevelamer Carbonate 2,400 MG TIDAC 04/10 0800 AC 06/26 PO 0815 Sodium Polystyrene 60 ML QMON 05/21 0700 AC 06/25 Sulfonate PO 0644 Sodium Polystyrene 60 ML QSUN 05/20 07 AC 06/24 Sulfonate PO 05 Tiotropium [place] 1 PUF DAILY 04/10 1000 AC 06/25 INH 1248 Laboratory Tests 06/25/17 0750: Anion Gap 20 H, Estimated GFR 5 L, BUN/Creatinine Ratio 7.4, Calcium 8.8, CBC w Diff NO MAN DIFF REQ, RBC 4.10 L, MCV 89.2, MCH 29.2, MCHC 32.8 L, RDW 17.4 H, MPV 7.1 L, Gran % 66.1, Lymphocytes % 18.7 L, Monocytes % 7.8, Eosinophils % 6.6 H, Basophils % 0.8, Absolute Granulocytes 5.4, Absolute Lymphocytes 1.5, Absolute Monocytes 0.6, Absolute Eosinophils 0.5, Absolute Basophils 0.1
[2017-06-26 15:22] VITALS: BP 166/96
[2017-06-26 22:49] VITALS: BP 158/94
[2017-06-27 06:46] VITALS: BP 133/92
--- NOTE | 2017-06-27 09:51 | PN- Att Addend ---
Attending Addendum Attending Brief Note Resting in bed comfortably. Vital signs are stable no fever with no changes on physical to continue present treatment hemodialysis treatment times a week disposition plans continue. Intake & Output 06/27 1600 06/27 0400 06/26 1600 06/26 0400 06/25 1600 06/25 0400 Intake Total 240 240 840 240 980 240 Output Total Balance 240 240 840 240 980 240 Intake, IV 0 0 Intake, Oral 240 240 840 240 980 240 Number 0 Bowel Movements Patient 234 lb 205 lb 222 lb Weight Weight Bed scale Standing Scale Measurement Method Current Medications Sig/Grace Start time Last Medication Dose Route Stop Time Status Admin Acetaminophen 325 MG Q6-PRN PRN 04/09 2245 AC 06/17 PO 2349 Albuterol Sulfate 2 PUF Q4P PRN 04/09 2300 AC 06/13 INH 2001 Aripiprazole 400 MG Q30D 04/24 0900 AC 06/23 IM 0942 Aspirin Buffered 81 MG 0800 04/10 0800 AC 06/26 PO 0815 Atorvastatin Calcium 40 MG 1700 04/10 1700 AC 06/26 PO 1732 Benzocaine 1 GAVIN 4 TIMES/DAY PRN 06/14 1130 AC TOP Benztropine Mesylate 0.5 MG BID 04/10 1000 AC 06/26 PO 2235 Cinacalcet 60 MG DAILY 05/18 1000 AC 06/26 PO 1044 Epoetin [place] 8,000 UNIT MoWeFr PRN 06/25 1130 AC IV Furosemide 80 MG 0800,2200 04/10 0800 AC 06/26 PO 2234 Gabapentin 300 MG AT BEDTIME 04/10 0215 AC 06/26 PO 2234 Hydralazine HCl 20 MG TID 05/08 1100 AC 06/26 PO 2235 Labetalol HCl 100 MG BID 04/10 1000 AC 06/26 PO 2235 Lactobacillus 1 CAP BID 05/24 2200 AC 06/26 Acidophilus PO 2235 Lamotrigine 150 MG DAILY 04/22 1000 AC 06/26 PO 1043 Lidocaine 15 ML TID PRN 06/14 1130 AC 06/14 PO 1414 Multivitamins 1 TAB 1000 04/10 1000 AC 06/26 PO 1045 Omeprazole 40 MG DAILY AC 04/20 1325 AC 06/27 PO 0617 Oxcarbazepine 600 MG BID 04/10 1000 AC 06/26 PO 2235 Propranolol HCl 10 MG BID 04/10 1000 AC 06/26 PO 2234 Quetiapine Fumarate 400 MG AT BEDTIME 04/10 0215 AC 06/26 PO 2234 Sevelamer Carbonate 2,400 MG TIDAC 04/10 0800 AC 06/27 PO 0745 Sodium Polystyrene 60 ML QMON 05/21 0700 AC 06/25 Sulfonate PO 0644 Sodium Polystyrene 60 ML QSUN 05/20 0700 AC 06/24 Sulfonate PO 0526 Tiotropium [place] 1 PUF DAILY 04/10 1000 AC 06/26 INH 1045 Laboratory Tests 06/25/17 0750: Anion Gap 20 H, Estimated GFR 5 L, BUN/Creatinine Ratio 7.4, Calcium 8.8, CBC w Diff NO MAN DIFF REQ, RBC 4.10 L, MCV 89.2, MCH 29.2, MCHC 32.8 L, RDW 17.4 H, MPV 7.1 L, Gran % 66.1, Lymphocytes % 18.7 L, Monocytes % 7.8, Eosinophils % 6.6 H, Basophils % 0.8, Absolute Granulocytes 5.4, Absolute Lymphocytes 1.5, Absolute Monocytes 0.6, Absolute Eosinophils 0.5, Absolute Basophils 0.1 Vital Signs Date Time Temp Pulse Resp B/P B/P Pulse O2 O2 Flow FiO2 Mean Ox Delivery Rate 06/27 0646 98.3 84 20 133/92 99 Room Air 06/26 2249 98.4 82 18 158/94 99 Room Air 06/26 2234 81 158/94 06/26 1732 84 136/90 06/26 1522 98.2 79 20 166/96 96 Room Air 06/26 1046 68 166/98 06/26 1045 68 166/98 06/26 1045 68 166/98
--- NOTE | 2017-06-27 12:21 | PN- Nephrology ---
Assessment/Plan Nephrology Assessment: 1. End-stage renal disease- Dialysis this afternoon Suggestion: 1. Hemodialysis planned for this afternoon. 2. Awaiting disposition. Subjective Subjective: Patient looks fairly well. He has no complaints. Waiting for dialysis this afternoon. Objective Vital Signs and I&Os Vital Signs Date Time Temp Pulse Resp B/P B/P Pulse O2 O2 Flow FiO2 Mean Ox Delivery Rate 06/27 0646 98.3 84 20 133/92 99 Room Air 06/26 2249 98.4 82 18 158/94 99 Room Air 06/26 2234 81 158/94 06/26 1732 84 136/90 06/26 1522 98.2 79 20 166/96 96 Room Air Intake & Output 06/27 1600 06/27 0400 06/26 1600 06/26 0400 06/25 1600 06/25 0400 Intake Total 240 240 840 240 980 240 Output Total Balance 240 240 840 240 980 240 Intake, IV 0 0 Intake, Oral 240 240 840 240 980 240 Number 0 Bowel Movements Patient 234 lb 205 lb 222 lb Weight Weight Bed scale Standing Scale Measurement Method Physical Exam: General Appearance: well developed/nourished, no apparent distress, alert, awake Head: atraumatic, normal appearance Neck: normal inspection, supple, trachea mid line, no midline tenderness Respiratory: normal breath sounds, chest non-tender anteriorly Cardiovascular: regular rate/rhythm, edema Abdomen: normal bowel sounds, soft, non-tender, no organomegaly Back: normal inspection, normal range of motion Extremities: normal inspection, no edema Neurologic/Psychiatric: no motor/sensory deficits, awake, alert Skin: intact, normal color Current Medications: Current Medications Sig/Grace Start time Last Medication Dose Route Stop Time Status Admin Acetaminophen 325 MG Q6-PRN PRN 04/09 2245 AC 06/17 PO 2349 Albuterol Sulfate 2 PUF Q4P PRN 04/09 2300 AC 06/13 INH 2001 Aripiprazole 400 MG Q30D 04/24 09 AC 06/23 IM 0942 Aspirin Buffered 81 MG 0800 04/10 0800 AC 06/26 PO 0815 Atorvastatin Calcium 40 MG 1700 04/10 1700 AC 06/26 PO 1732 Benzocaine 1 GAVIN 4 TIMES/DAY PRN 06/14 1130 AC TOP Benztropine Mesylate 0.5 MG BID 04/10 1000 AC 06/26 PO 2235 Cinacalcet 60 MG DAILY 05/18 1000 AC 06/26 PO 1044 Epoetin [place] 8,000 UNIT MoWeFr PRN 06/25 1130 AC IV Furosemide 80 MG 0800,04/10 0800 AC 06/26 PO 2234 Gabapentin 300 MG AT BEDTIME 04/10 021 AC 06/26 PO 2234 Hydralazine HCl 20 MG TID 05/08 1100 AC 06/26 PO 2235 Labetalol HCl 100 MG BID 04/10 1000 AC 06/26 PO 2235 Lactobacillus 1 CAP BID 05/24 2200 AC 06/26 Acidophilus PO 2235 Lamotrigine 150 MG DAILY 04/22 1000 AC 06/26 PO 1043 Lidocaine 15 ML TID PRN 06/14 1130 AC 06/14 PO 1414 Multivitamins 1 TAB 1000 04/10 1000 AC 06/26 PO 1045 Omeprazole 40 MG DAILY AC 04/20 1325 AC 06/27 PO 0617 Oxcarbazepine 600 MG BID 04/10 1000 AC 06/26 PO 2235 Propranolol HCl 10 MG BID 04/10 1000 AC 06/26 PO 2234 Quetiapine Fumarate 400 MG AT BEDTIME 04/10 021 AC 06/26 PO 2234 Sevelamer Carbonate 2,400 MG TIDAC 04/10 0800 AC 06/27 PO 0745 Sodium Polystyrene 60 ML QMON 05/21 0700 AC 06/25 Sulfonate PO 0644 Sodium Polystyrene 60 ML QSUN 05/20 0700 AC 06/24 Sulfonate PO 0526 Tiotropium [place] 1 PUF DAILY 04/10 1000 AC 06/26 INH 1045 Results Pertinent Lab Results: Laboratory Tests 06/25 0750 Chemistry Sodium (137 - 145 mmol/L) 135 L Potassium (3.5 - 5.1 mmol/L) 5.5 H Chloride (98 - 107 mmol/L) 96 L Carbon Dioxide (22 - 30 mmol/L) 20 L Anion Gap (5 - 16) 20 H BUN (9 - 20 mg/dL) 76 H Creatinine (0.7 - 1.2 mg/dL) 10.3 *H Estimated GFR (>60 ml/min) 5 L BUN/Creatinine Ratio (7 - 25 %) 7.4 Calcium (8.4 - 10.2 mg/dL) 8.8 Hematology CBC w Diff NO MAN DIFF REQ WBC (4.8 - 10.8 /CUMM) 8.2 RBC (4.70 - 6.10 /CUMM) 4.10 L Hgb (14.0 - 18.0 G/DL) 12.0 L Hct (42 - 52 %) 36.5 L MCV (80.0 - 94.0 FL) 89.2 MCH (27.0 - 31.0 PG) 29.2 MCHC (33.0 - 37.0 G/DL) 32.8 L RDW (11.5 - 14.5 %) 17.4 H Plt Count (130 - 400 /CUMM) 393 MPV (7.4 - 10.4 FL) 7.1 L Gran % (42.2 - 75.2 %) 66.1 Lymphocytes % (20.5 - 51.1 %) 18.7 L Monocytes % (1.7 - 9.3 %) 7.8 Eosinophils % (0 - 5 %) 6.6 H Basophils % (0.0 - 2.0 %) 0.8 Absolute Granulocytes (1.4 - 6.5 /CUMM) 5.4 Absolute Lymphocytes (1.2 - 3.4 /CUMM) 1.5 Absolute Monocytes (0.10 - 0.60 /CUMM) 0.6 Absolute Eosinophils (0.0 - 0.7 /CUMM) 0.5 Absolute Basophils (0.0 - 0.2 /CUMM) 0.1
[2017-06-27 14:55] VITALS: BP 176/76
[2017-06-27 17:12] LABS: ABSOLUTE BASOPHIL COUNT 0.1 /CUMM (0.0-0.2); ABSOLUTE EOSINOPHIL COUNT 0.5 /CUMM (0.0-0.7); ABSOLUTE LYMPH COUNT 1.8 /CUMM (1.2-3.4); ABSOLUTE MONOCYTE COUNT 0.7 /CUMM (0.10-0.60); EOSINOPHIL % 6.5 % (0-5); GRANULOCYTE % 61.8 % (42.2-75.2); HEMATOCRIT 37.7 % (42-52); MEAN CORPUSCULAR HGB CONC 32.5 G/DL (33.0-37.0); MEAN CORPUSCULAR VOLUME 89.4 FL (80.0-94.0); MEAN PLATELET VOLUME 7.2 FL (7.4-10.4); PLATELET COUNT 354 /CUMM (130-400); RBC DISTRIBUTION WIDTH 17.9 % (11.5-14.5); RED BLOOD CELL CT 4.22 /CUMM (4.70-6.10); WHITE BLOOD CELL COUNT 8.1 /CUMM (4.8-10.8)
[2017-06-27 23:18] VITALS: BP 138/97
[2017-06-28 07:28] VITALS: BP 145/95
--- NOTE | 2017-06-28 11:17 | PN- Att Addend ---
Attending Addendum Attending Brief Note Lab work yesterday evening showed an elevated potassium patient got an extra dose of Kayexalate, had good bowel movements and his potassium came down nicely. No other issues noted no new changes, his vital signs are stable. Will continue present treatments and disposition plans continue. Intake & Output 06/28 1600 06/28 0400 06/27 1600 06/27 0400 06/26 1600 06/26 0400 Intake Total 109 610 2888 240 840 240 Output Total Balance 172 243 7002 240 840 240 Intake, IV 0 Intake, Oral 689 273 1070 240 840 240 Number 0 Bowel Movements Patient 225 lb 234 lb 205 lb Weight Weight Bed scale Bed scale Measurement Method Current Medications Sig/Grace Start time Last Medication Dose Route Stop Time Status Admin Acetaminophen 325 MG Q6-PRN PRN 04/09 2245 AC 06/17 PO 2349 Albuterol Sulfate 2 PUF Q4P PRN 04/09 2300 AC 06/13 INH 2001 Aripiprazole 400 MG Q30D 04/24 09 AC 06/23 IM 0942 Aspirin Buffered 81 MG 0804/10 0800 AC 06/28 PO 0914 Atorvastatin Calcium 40 MG 1700 04/10 1700 AC 06/26 PO 1732 Benzocaine 1 GAVIN 4 TIMES/DAY PRN 06/14 1130 AC TOP Benztropine Mesylate 0.5 MG BID 04/10 1000 AC 06/28 PO 0917 Cinacalcet 60 MG DAILY 05/18 1000 AC 06/28 PO 0914 Epoetin [place] 8,000 UNIT MoWeFr PRN 06/25 1130 AC IV Furosemide 80 MG 0800,2200 04/10 0800 AC 06/28 PO 0917 Gabapentin 300 MG AT BEDTIME 04/10 0215 AC 06/27 PO 2249 Hydralazine HCl 20 MG TID 05/08 1100 AC 06/28 PO 0917 Labetalol HCl 100 MG BID 04/10 1000 AC 06/28 PO 0917 Lactobacillus 1 CAP BID 05/24 2200 AC 06/28 Acidophilus PO 0917 Lamotrigine 150 MG DAILY 04/22 1000 AC 06/28 PO 0918 Lidocaine 15 ML TID PRN 06/14 1130 AC 06/14 PO 1414 Multivitamins 1 TAB 1000 04/10 1000 AC 06/28 PO 0916 Omeprazole 40 MG DAILY AC 04/20 1325 AC 06/28 PO 0601 Oxcarbazepine 600 MG BID 04/10 1000 AC 06/28 PO 0917 Propranolol HCl 10 MG BID 04/10 1000 AC 06/28 PO 0917 Quetiapine Fumarate 400 MG AT BEDTIME 04/10 0215 AC 06/27 PO 2249 Sevelamer Carbonate 2,400 MG TIDAC 04/10 0800 AC 06/28 PO 0918 Sodium Polystyrene 60 ML ONCE ONE 06/27 2100 DC 06/27 Sulfonate PO 06/27 2101 2256 Sodium Polystyrene 60 ML QMON 05/21 0700 AC 06/25 Sulfonate PO 0644 Sodium Polystyrene 60 ML QSUN 05/20 0700 AC 06/24 Sulfonate PO 0526 Tiotropium [place] 1 PUF DAILY 04/10 1000 AC 06/28 INH 0918 Laboratory Tests 06/28/17 0650: Anion Gap 18 H, Estimated GFR 8 L, BUN/Creatinine Ratio 5.4 L 06/27/17 1550: Anion Gap 17 H, Estimated GFR 5 L, BUN/Creatinine Ratio 6.7 L, Calcium 8.3 L , Phosphorus 4.6 H, Magnesium 2.2, CBC w Diff NO MAN DIFF REQ, RBC 4.22 L, MCV 89.4, MCH 29.0, MCHC 32.5 L, RDW 17.9 H, MPV 7.2 L, Gran % 61.8, Lymphocytes % 21.8, Monocytes % 8.9, Eosinophils % 6.5 H, Basophils % 1.0, Absolute Granulocytes 5.0, Absolute Lymphocytes 1.8, Absolute Monocytes 0.7 H, Absolute Eosinophils 0.5, Absolute Basophils 0.1 Vital Signs Date Time Temp Pulse Resp B/P B/P Pulse O2 O2 Flow FiO2 Mean Ox Delivery Rate 06/28 916 80 152/70 06/28 916 80 152/70 06/28 916 80 152/70 06/29 727 97.7 82 18 145/95 98 Room Air 06/27 2317 98.9 87 18 138/97 99 Room Air 06/27 2254 87 138/97 06/27 2254 87 138/97 06/27 1455 97.6 72 20 176/76 97 Room Air
[2017-06-28 14:03] VITALS: BP 130/80
[2017-06-28 23:13] VITALS: BP 137/95
[2017-06-29 07:50] VITALS: BP 136/82
[2017-06-29 08:22] LABS: ABSOLUTE BASOPHIL COUNT 0.1 /CUMM (0.0-0.2); ABSOLUTE EOSINOPHIL COUNT 0.6 /CUMM (0.0-0.7); ABSOLUTE GRANULOCYTE CT 3.8 /CUMM (1.4-6.5); ABSOLUTE LYMPH COUNT 1.8 /CUMM (1.2-3.4); ABSOLUTE MONOCYTE COUNT 0.8 /CUMM (0.10-0.60); BASOPHIL % 1.4 % (0.0-2.0); EOSINOPHIL % 7.9 % (0-5); GRANULOCYTE % 54.1 % (42.2-75.2); HEMATOCRIT 36.9 % (42-52); MEAN CORPUSCULAR HGB 29.1 PG (27.0-31.0); MEAN CORPUSCULAR HGB CONC 32.8 G/DL (33.0-37.0); MEAN CORPUSCULAR VOLUME 88.5 FL (80.0-94.0); MEAN PLATELET VOLUME 7.1 FL (7.4-10.4); PLATELET COUNT 350 /CUMM (130-400); RBC DISTRIBUTION WIDTH 17.3 % (11.5-14.5); RED BLOOD CELL CT 4.16 /CUMM (4.70-6.10); WHITE BLOOD CELL COUNT 7.1 /CUMM (4.8-10.8)
--- NOTE | 2017-06-29 10:40 | PN- Nephrology ---
Assessment/Plan Nephrology Assessment: ESRD - Routine HD today. Dietary indiscretion has led to hyperkalemia and large intradialytic weight gains. Needs to restrict K and salt in diet. Anemia - Hg above goal - Hold MICHAEL and restart at 6000U TIW once Hg <11. Hyperkalemia - Needs K restriction in diet. Will switch to 1K bath. Suggestion: -HD today -Switch to 1K bath going forward -2g salt restriction -Hold Epogen - restart at 6000U TIW once Hg<11 Please call [phone] with ?'s Subjective Subjective: Pt seen and examined on dialysis K 7.5 on 06/27 - on 2K bath K 5.8 today Unclear if he has been restricting his diet Objective Vital Signs and I&Os Vital Signs Date Time Temp Pulse Resp B/P B/P Pulse O2 O2 Flow FiO2 Mean Ox Delivery Rate 06/29 0750 98.2 77 18 136/82 97 Room Air 06/28 2313 98.9 90 20 137/95 98 Room Air 06/28 2223 90 137/95 06/28 2223 90 137/95 06/28 2223 90 137/95 06/28 1708 74 14/06/28 1403 98.4 86 20 130/80 95 Intake & Output 06/29 1600 06/29 0400 06/28 1600 06/28 0400 06/27 1600 06/27 0400 Intake Total 240 480 136 627 2936 240 Output Total Balance 240 480 479 823 4439 240 Intake, IV 0 Intake, Oral 240 480 221 657 0952 240 Number 0 Bowel Movements Patient 225 lb 234 lb Weight Weight Bed scale Bed scale Measurement Method Physical Exam: Gen - NAD HEENT - supple CV - RRR, no m/r/g Chest - clear anteriorly, no w/r/r Abd - soft, NTND Ext - warm, no edema, LLA AVF +bruit Neuro - AOX3, grossly nonfocal Current Medications: Current Medications Sig/Grace Start time Last Medication Dose Route Stop Time Status Admin Acetaminophen 325 MG Q6-PRN PRN 04/09 2245 AC 06/17 PO 234 Albuterol Sulfate 2 PUF Q4P PRN 04/09 2300 AC 06/13 INH 2001 Aripiprazole 400 MG Q30D 04/24 09 AC 06/23 IM 09 Aspirin Buffered 81 MG 0800 12/12 0800 AC 06/28 PO 0914 Atorvastatin Calcium 40 MG 1700 04/10 1700 AC 06/28 PO 1712 Benzocaine 1 GAVIN 4 TIMES/DAY PRN 06/14 1130 AC TOP Benztropine Mesylate 0.5 MG BID 04/10 1000 AC 06/28 PO 2223 Cinacalcet 60 MG DAILY 05/18 1000 AC 06/28 PO 0914 Epoetin Florentino 8,000 UNIT MoWeFr PRN 06/25 1130 AC IV Furosemide 80 MG 0800,0 04/10 0800 AC 06/28 PO 2222 Gabapentin 300 MG AT BEDTIME 04/10 0215 AC 06/28 PO 2222 Hydralazine HCl 20 MG TID 05/08 1100 AC 06/28 PO 2223 Labetalol HCl 100 MG BID 04/10 1000 AC 06/28 PO 2223 Lactobacillus 1 CAP BID 05/24 2200 AC 06/28 Acidophilus PO 2223 Lamotrigine 150 MG DAILY 04/22 1000 AC 06/28 PO 0918 Lidocaine 15 ML TID PRN 06/14 1130 AC 06/14 PO 1414 Multivitamins 1 TAB 1000 04/10 1000 AC 06/28 PO 0916 Omeprazole 40 MG DAILY AC 04/20 1325 AC 06/29 PO 0505 Oxcarbazepine 600 MG BID 04/10 1000 AC 06/28 PO 2223 Propranolol HCl 10 MG BID 04/10 1000 AC 06/28 PO 2223 Quetiapine Fumarate 400 MG AT BEDTIME 04/10 0215 AC 06/28 PO 2222 Sevelamer Carbonate 2,400 MG TIDAC 04/10 0800 AC 06/28 PO 1709 Sodium Polystyrene 60 ML QMON 05/21 0700 AC 06/25 Sulfonate PO 0644 Sodium Polystyrene 60 ML QSUN 05/20 0700 AC 06/24 Sulfonate PO 0526 Tiotropium [place] [facility] 1 PUF DAILY 04/10 1000 AC 06/28 INH 0918 Results Pertinent Lab Results: Laboratory Tests 06/29 06/28 0748 0650 Chemistry Sodium (137 - 145 mmol/L) 139 141 Potassium (3.5 - 5.1 mmol/L) 5.8 H 5.1 Chloride (98 - 107 mmol/L) 99 97 L Carbon Dioxide (22 - 30 mmol/L) 25 26 Anion Gap (5 - 16) 15 18 H BUN (9 - 20 mg/dL) 61 H 38 H Creatinine (0.7 - 1.2 mg/dL) 8.8 *H 7.0 *H Estimated GFR (>60 ml/min) 6 L 8 L BUN/Creatinine Ratio (7 - 25 %) 6.9 L 5.4 L Calcium (8.4 - 10.2 mg/dL) 8.8 Hematology CBC w Diff NO MAN DIFF REQ WBC (4.8 - 10.8 /CUMM) 7.1 RBC (4.70 - 6.10 /CUMM) 4.16 L Hgb (14.0 - 18.0 G/DL) 12.1 L Hct (42 - 52 %) 36.9 L MCV (80.0 - 94.0 FL) 88.5 MCH (27.0 - 31.0 PG) 29.1 MCHC (33.0 - 37.0 G/DL) 32.8 L RDW (11.5 - 14.5 %) 17.3 H Plt Count (130 - 400 /CUMM) 350 MPV (7.4 - 10.4 FL) 7.1 L Gran % (42.2 - 75.2 %) 54.1 Lymphocytes % (20.5 - 51.1 %) 25.7 Monocytes % (1.7 - 9.3 %) 10.9 H Eosinophils % (0 - 5 %) 7.9 H Basophils % (0.0 - 2.0 %) 1.4 Absolute Granulocytes (1.4 - 6.5 /CUMM) 3.8 Absolute Lymphocytes (1.2 - 3.4 /CUMM) 1.8 Absolute Monocytes (0.10 - 0.60 /CUMM) 0.8 H Absolute Eosinophils (0.0 - 0.7 /CUMM) 0.6 Absolute Basophils (0.0 - 0.2 /CUMM) 0.1 06/27 1550 Chemistry Sodium (137 - 145 mmol/L) 132 L Potassium (3.5 - 5.1 mmol/L) 7.5 *H Chloride (98 - 107 mmol/L) 94 L Carbon Dioxide (22 - 30 mmol/L) 22 Anion Gap (5 - 16) 17 H BUN (9 - 20 mg/dL) 67 H Creatinine (0.7 - 1.2 mg/dL) 10.0 *H Estimated GFR (>60 ml/min) 5 L BUN/Creatinine Ratio (7 - 25 %) 6.7 L Calcium (8.4 - 10.2 mg/dL) 8.3 L Phosphorus (2.5 - 4.5 mg/dL) 4.6 H Magnesium (1.6 - 2.3 mg/dL) 2.2 Hematology CBC w Diff NO MAN DIFF REQ WBC (4.8 - 10.8 /CUMM) 8.1 RBC (4.70 - 6.10 /CUMM) 4.22 L Hgb (14.0 - 18.0 G/DL) 12.3 L Hct (42 - 52 %) 37.7 L MCV (80.0 - 94.0 FL) 89.4 MCH (27.0 - 31.0 PG) 29.0 MCHC (33.0 - 37.0 G/DL) 32.5 L RDW (11.5 - 14.5 %) 17.9 H Plt Count (130 - 400 /CUMM) 354 MPV (7.4 - 10.4 FL) 7.2 L Gran % (42.2 - 75.2 %) 61.8 Lymphocytes % (20.5 - 51.1 %) 21.8 Monocytes % (1.7 - 9.3 %) 8.9 Eosinophils % (0 - 5 %) 6.5 H Basophils % (0.0 - 2.0 %) 1.0 Absolute Granulocytes (1.4 - 6.5 /CUMM) 5.0 Absolute Lymphocytes (1.2 - 3.4 /CUMM) 1.8 Absolute Monocytes (0.10 - 0.60 /CUMM) 0.7 H Absolute Eosinophils (0.0 - 0.7 /CUMM) 0.5 Absolute Basophils (0.0 - 0.2 /CUMM) 0.1 Imaging/Other Studies: None new
--- NOTE | 2017-06-29 11:23 | PN- Att Addend ---
Attending Addendum Attending Brief Note No new issues. Hemodialysis in progress vital signs are stable no fever no new changes on physical continue present treatment and disposition plans. Intake & Output 06/29 1600 06/29 0400 06/28 1600 06/28 0400 06/27 1600 06/27 0400 Intake Total 240 480 990 592 7142 240 Output Total Balance 240 480 067 240 9018 240 Intake, IV 0 Intake, Oral 240 480 769 121 4029 240 Number 0 Bowel Movements Patient 225 lb 234 lb Weight Weight Bed scale Bed scale Measurement Method Current Medications Sig/Grace Start time Last Medication Dose Route Stop Time Status Admin Acetaminophen 325 MG Q6-PRN PRN 04/09 2245 AC 06/17 PO 2349 Albuterol Sulfate 2 PUF Q4P PRN 04/09 2300 AC 06/13 INH 2001 Aripiprazole 400 MG Q30D 04/24 0900 AC 06/23 IM 0942 Aspirin Buffered 81 MG 0800 04/10 0800 AC 06/28 PO 0914 Atorvastatin Calcium 40 MG 1700 04/10 1700 AC 06/28 PO 1712 Benzocaine 1 GAVIN 4 TIMES/DAY PRN 06/14 1130 AC TOP Benztropine Mesylate 0.5 MG BID 04/10 1000 AC 06/28 PO 2223 Cinacalcet 60 MG DAILY 05/18 1000 AC 06/28 PO 0914 Epoetin Florent[place] 8,000 UNIT MoWeFr PRN 06/25 1130 AC IV Furosemide 80 MG 0800,2200 04/10 0800 AC 06/28 PO 2222 Gabapentin 300 MG AT BEDTIME 04/10 0215 AC 06/28 PO 2222 Hydralazine HCl 20 MG TID 05/08 1100 AC 06/28 PO 2223 Labetalol HCl 100 MG BID 04/10 1000 AC 06/28 PO 2223 Lactobacillus 1 CAP BID 05/24 2200 AC 06/28 Acidophilus PO 2223 Lamotrigine 150 MG DAILY 04/22 1000 AC 06/28 PO 0918 Lidocaine 15 ML TID PRN 06/14 1130 AC 06/14 PO 1414 Multivitamins 1 TAB 1000 04/10 1000 AC 06/28 PO 0916 Omeprazole 40 MG DAILY AC 04/20 1325 AC 06/29 PO 0505 Oxcarbazepine 600 MG BID 04/10 1000 AC 06/28 PO 2223 Propranolol HCl 10 MG BID 12/12 1000 AC 06/28 PO 2223 Quetiapine Fumarate 400 MG AT BEDTIME 04/10 0215 AC 06/28 PO 2222 Sevelamer Carbonate 2,400 MG TIDAC 04/10 0800 AC 06/28 PO 1709 Sodium Polystyrene 60 ML QMON 05/21 0700 AC 06/25 Sulfonate PO 0644 Sodium Polystyrene 60 ML QSUN 05/20 0700 AC 06/24 Sulfonate PO 0526 Tiotropium [place] 1 PUF DAILY 04/10 1000 AC 06/28 INH 0918 Laboratory Tests 06/29 06/28 0748 0650 Chemistry Sodium (137 - 145 mmol/L) 139 141 Potassium (3.5 - 5.1 mmol/L) 5.8 H 5.1 Chloride (98 - 107 mmol/L) 99 97 L Carbon Dioxide (22 - 30 mmol/L) 25 26 Anion Gap (5 - 16) 15 18 H BUN (9 - 20 mg/dL) 61 H 38 H Creatinine (0.7 - 1.2 mg/dL) 8.8 *H 7.0 *H Estimated GFR (>60 ml/min) 6 L 8 L BUN/Creatinine Ratio (7 - 25 %) 6.9 L 5.4 L Calcium (8.4 - 10.2 mg/dL) 8.8 Hematology CBC w Diff NO MAN DIFF REQ WBC (4.8 - 10.8 /CUMM) 7.1 RBC (4.70 - 6.10 /CUMM) 4.16 L Hgb (14.0 - 18.0 G/DL) 12.1 L Hct (42 - 52 %) 36.9 L MCV (80.0 - 94.0 FL) 88.5 MCH (27.0 - 31.0 PG) 29.1 MCHC (33.0 - 37.0 G/DL) 32.8 L RDW (11.5 - 14.5 %) 17.3 H Plt Count (130 - 400 /CUMM) 350 MPV (7.4 - 10.4 FL) 7.1 L Gran % (42.2 - 75.2 %) 54.1 Lymphocytes % (20.5 - 51.1 %) 25.7 Monocytes % (1.7 - 9.3 %) 10.9 H Eosinophils % (0 - 5 %) 7.9 H Basophils % (0.0 - 2.0 %) 1.4 Absolute Granulocytes (1.4 - 6.5 /CUMM) 3.8 Absolute Lymphocytes (1.2 - 3.4 /CUMM) 1.8 Absolute Monocytes (0.10 - 0.60 /CUMM) 0.8 H Absolute Eosinophils (0.0 - 0.7 /CUMM) 0.6 Absolute Basophils (0.0 - 0.2 /CUMM) 0.1 06/27 1550 Chemistry Sodium (137 - 145 mmol/L) 132 L Potassium (3.5 - 5.1 mmol/L) 7.5 *H Chloride (98 - 107 mmol/L) 94 L Carbon Dioxide (22 - 30 mmol/L) 22 Anion Gap (5 - 16) 17 H BUN (9 - 20 mg/dL) 67 H Creatinine (0.7 - 1.2 mg/dL) 10.0 *H Estimated GFR (>60 ml/min) 5 L BUN/Creatinine Ratio (7 - 25 %) 6.7 L Calcium (8.4 - 10.2 mg/dL) 8.3 L Phosphorus (2.5 - 4.5 mg/dL) 4.6 H Magnesium (1.6 - 2.3 mg/dL) 2.2 Hematology CBC w Diff NO MAN DIFF REQ WBC (4.8 - 10.8 /CUMM) 8.1 RBC (4.70 - 6.10 /CUMM) 4.22 L Hgb (14.0 - 18.0 G/DL) 12.3 L Hct (42 - 52 %) 37.7 L MCV (80.0 - 94.0 FL) 89.4 MCH (27.0 - 31.0 PG) 29.0 MCHC (33.0 - 37.0 G/DL) 32.5 L RDW (11.5 - 14.5 %) 17.9 H Plt Count (130 - 400 /CUMM) 354 MPV (7.4 - 10.4 FL) 7.2 L Gran % (42.2 - 75.2 %) 61.8 Lymphocytes % (20.5 - 51.1 %) 21.8 Monocytes % (1.7 - 9.3 %) 8.9 Eosinophils % (0 - 5 %) 6.5 H Basophils % (0.0 - 2.0 %) 1.0 Absolute Granulocytes (1.4 - 6.5 /CUMM) 5.0 Absolute Lymphocytes (1.2 - 3.4 /CUMM) 1.8 Absolute Monocytes (0.10 - 0.60 /CUMM) 0.7 H Absolute Eosinophils (0.0 - 0.7 /CUMM) 0.5 Absolute Basophils (0.0 - 0.2 /CUMM) 0.1 Vital Signs Date Time Temp Pulse Resp B/P B/P Pulse O2 O2 Flow FiO2 Mean Ox Delivery Rate 06/29 0750 98.2 77 18 136/82 97 Room Air 06/28 2313 98.9 90 20 137/95 98 Room Air 06/28 2223 90 137/95 06/28 2223 90 137/95 06/28 2223 90 137/95 06/28 1708 74 1406/28 1403 98.4 86 20 130/80 95
[2017-06-29 14:30] VITALS: BP 130/82
[2017-06-29 22:04] VITALS: BP 128/80
[2017-06-30 06:32] VITALS: BP 114/64
[2017-06-30 11:20] VITALS: BP 130/72
--- NOTE | 2017-06-30 13:12 | PN- Att Addend ---
Attending Addendum Attending Brief Note Mr. Sanches was interviewed and examined. His EMR was reviewed. He states he had successful dialysis yesterday. Has no complaints today. He is afebrile with stable vital signs. Lung, heart, and abdominal exams are benign. His laboratory studies were reviewed and are satisfactory. We are continuing his medical management as previously. We will continue a bed search.
[2017-06-30 14:36] VITALS: BP 130/80
[2017-06-30 21:45] VITALS: BP 124/68
[2017-07-01 05:46] VITALS: BP 120/80
--- NOTE | 2017-07-01 14:28 | PN- Att Addend ---
Attending Addendum Attending Brief Note Mr. Sanches was interviewed, examined, and his EMR was reviewed. His blood pressures mildly elevated today but his exam is benign. He is scheduled for dialysis in the a.m. We are continuing our search for a dialysis chair.
[2017-07-01 15:08] VITALS: BP 120/78
[2017-07-01 22:17] VITALS: BP 150/84
[2017-07-01 22:49] VITALS: BP 146/76
[2017-07-02 06:31] VITALS: BP 150/86
[2017-07-02 09:14] LABS: ABSOLUTE BASOPHIL COUNT 0.1 /CUMM (0.0-0.2); ABSOLUTE EOSINOPHIL COUNT 0.6 /CUMM (0.0-0.7); ABSOLUTE GRANULOCYTE CT 4.7 /CUMM (1.4-6.5); ABSOLUTE LYMPH COUNT 1.7 /CUMM (1.2-3.4); ABSOLUTE MONOCYTE COUNT 0.5 /CUMM (0.10-0.60); EOSINOPHIL % 7.5 % (0-5); GRANULOCYTE % 62.9 % (42.2-75.2); HEMATOCRIT 36.2 % (42-52); MEAN CORPUSCULAR HGB 29.2 PG (27.0-31.0); MEAN CORPUSCULAR HGB CONC 32.9 G/DL (33.0-37.0); MEAN CORPUSCULAR VOLUME 88.9 FL (80.0-94.0); MEAN PLATELET VOLUME 7.2 FL (7.4-10.4); PLATELET COUNT 354 /CUMM (130-400); RBC DISTRIBUTION WIDTH 17.1 % (11.5-14.5); RED BLOOD CELL CT 4.07 /CUMM (4.70-6.10); WHITE BLOOD CELL COUNT 7.5 /CUMM (4.8-10.8)
--- NOTE | 2017-07-02 09:58 | PN- Nephrology ---
Assessment/Plan Nephrology Assessment: ESRD - Routine HD today. Dietary indiscretion has led to hyperkalemia and large intradialytic weight gains. Will need to go down on dry weight as he also has edema on exam today. Anemia - Hg above goal - Hold MICHAEL and restart at 6000U TIW once Hg <11. Hyperkalemia - On 1K bath. Needs to restrict potassium. Will switch to 2K bath if/when K<4.0. Suggestion: -HD today -1K bath for today - f/u BMP - switch to 2K if K<4.0 -2g salt restriction -Hold Epogen - restart at 6000U TIW once Hg<11 -Dispo planning Please call [phone] with ?'s Subjective Subjective: Pt seen and examined on dialysis No complaints K 4.5 Weight 98kg - asking for 5L to be removed Objective Vital Signs and I&Os Vital Signs Date Time Temp Pulse Resp B/P B/P Pulse O2 O2 Flow FiO2 Mean Ox Delivery Rate 07/02 630 97.0 72 20 150/86 96 07/01 2249 97.4 96 20 146/76 96 / 2217 97.7 97 18 150/84 95 / 2208 97 150/84 / 1737 86 164/88 07/01 1508 97.6 81 20 120/78 95 Room Air Intake & Output 07/02 1600 07/02 0400 07/01 1600 07/01 0400 06/30 1600 06/30 0400 Intake Total 204 516 4588 450 240 240 Output Total Balance 543 845 3430 450 240 240 Intake, Oral 399 039 0244 450 240 240 Patient 216 lb 214 lb 225 lb Weight Weight Bed scale Bed scale Bed scale Measurement Method Physical Exam: Gen - NAD HEENT - supple CV - RRR, no m/r/g Chest - clear anteriorly, no w/r/r Abd - soft, NTND Ext - warm, trace edema, LLA AVF +bruit Neuro - AOX3, grossly nonfocal Current Medications: Current Medications Sig/Grace Start time Last Medication Dose Route Stop Time Status Admin Acetaminophen 325 MG Q6-PRN PRN 04/09 2245 AC 06/17 PO 2349 Albuterol Sulfate 2 PUF Q4P PRN 04/09 2300 AC 06/13 INH 2001 Aripiprazole 400 MG Q30D 04/24 0900 AC 06/23 IM 0942 Aspirin Buffered 81 MG 0800 04/10 0800 AC 07/01 PO 0809 Atorvastatin Calcium 40 MG 1700 04/10 1700 AC 07/01 PO 1737 Benzocaine 1 GAVIN 4 TIMES/DAY PRN 06/14 1130 AC TOP Benztropine Mesylate 0.5 MG BID 04/10 1000 AC 07/01 PO 2205 Cinacalcet 60 MG DAILY 05/18 1000 AC 07/01 PO 0811 Epoetin Florentino 8,000 UNIT MoWeFr PRN 06/25 1130 AC IV Furosemide 80 MG 0800,0 04/10 0800 AC 07/01 PO 2205 Gabapentin 300 MG AT BEDTIME 04/10 0215 AC 07/01 PO 2205 Hydralazine HCl 20 MG TID 05/08 1100 AC 07/01 PO 2208 Labetalol HCl 100 MG BID 04/10 1000 AC 07/01 PO 2208 Lactobacillus 1 CAP BID 05/24 2200 AC 07/01 Acidophilus PO 2205 Lamotrigine 150 MG DAILY 04/22 1000 AC 07/01 PO 0813 Lidocaine 15 ML TID PRN 06/14 1130 AC 06/14 PO 1414 Multivitamins 1 TAB 1000 04/10 1000 AC 07/01 PO 0809 Omeprazole 40 MG DAILY AC 04/20 1325 AC 07/02 PO 0556 Oxcarbazepine 600 MG BID 04/10 1000 AC 07/01 PO 2205 Propranolol HCl 10 MG BID 04/10 1000 AC 07/01 PO 2204 Quetiapine Fumarate 400 MG AT BEDTIME 04/10 0215 AC 07/01 PO 2204 Sevelamer Carbonate 2,400 MG TIDAC 04/10 0800 AC 07/02 PO 0750 Sodium Polystyrene 60 ML QMON 05/21 0700 AC 06/25 Sulfonate PO 0644 Sodium Polystyrene 60 ML QSUN 05/20 0700 AC 07/01 Sulfonate PO 0648 Tiotropium [place] 1 PUF DAILY 04/10 1000 AC 07/01 INH 0809 Results Pertinent Lab Results: Laboratory Tests 07/02 808 Chemistry Sodium Pending Potassium Pending Chloride Pending Carbon Dioxide Pending Anion Gap Pending BUN Pending Creatinine Pending BUN/Creatinine Ratio Pending Calcium Pending Hematology CBC w Diff NO MAN DIFF REQ WBC (4.8 - 10.8 /CUMM) 7.5 RBC (4.70 - 6.10 /CUMM) 4.07 L Hgb (14.0 - 18.0 G/DL) 11.9 L Hct (42 - 52 %) 36.2 L MCV (80.0 - 94.0 FL) 88.9 MCH (27.0 - 31.0 PG) 29.2 MCHC (33.0 - 37.0 G/DL) 32.9 L RDW (11.5 - 14.5 %) 17.1 H Plt Count (130 - 400 /CUMM) 354 MPV (7.4 - 10.4 FL) 7.2 L Gran % (42.2 - 75.2 %) 62.9 Lymphocytes % (20.5 - 51.1 %) 22.4 Monocytes % (1.7 - 9.3 %) 6.2 Eosinophils % (0 - 5 %) 7.5 H Basophils % (0.0 - 2.0 %) 1.0 Absolute Granulocytes (1.4 - 6.5 /CUMM) 4.7 Absolute Lymphocytes (1.2 - 3.4 /CUMM) 1.7 Absolute Monocytes (0.10 - 0.60 /CUMM) 0.5 Absolute Eosinophils (0.0 - 0.7 /CUMM) 0.6 Absolute Basophils (0.0 - 0.2 /CUMM) 0.1
--- NOTE | 2017-07-02 10:04 | PN- Att Addend ---
Attending Addendum Attending Brief Note No new issues. Hemodialysis in progress. Vital signs are stable no fever abnormal changes on physical. Disposition plans continue. Intake & Output 07/02 1600 07/02 0400 07/01 1600 07/01 0400 06/30 1600 06/30 0400 Intake Total 637 429 4157 450 240 240 Output Total Balance 363 010 4086 450 240 240 Intake, Oral 869 255 7213 450 240 240 Patient 216 lb 214 lb 225 lb Weight Weight Bed scale Bed scale Bed scale Measurement Method Current Medications Sig/Grace Start time Last Medication Dose Route Stop Time Status Admin Acetaminophen 325 MG Q6-PRN PRN 04/09 2245 AC 06/17 PO 2349 Albuterol Sulfate 2 PUF Q4P PRN 04/09 2300 AC 06/13 INH 2001 Aripiprazole 400 MG Q30D 04/24 0900 AC 06/23 IM 0942 Aspirin Buffered 81 MG 0800 04/10 0800 AC 07/01 PO 0809 Atorvastatin Calcium 40 MG 1700 04/10 1700 AC 07/01 PO 1737 Benzocaine 1 GAVIN 4 TIMES/DAY PRN 06/14 1130 AC TOP Benztropine Mesylate 0.5 MG BID 04/10 1000 AC 07/01 PO 2205 Cinacalcet 60 MG DAILY 05/18 1000 AC 07/01 PO 0811 Epoetin Florentino 8,000 UNIT MoWeFr PRN 06/25 1130 AC IV Furosemide 80 MG 0800,2200 04/10 0800 AC 07/01 PO 2205 Gabapentin 300 MG AT BEDTIME 04/10 0215 AC 07/01 PO 2205 Hydralazine HCl 20 MG TID 05/08 1100 AC 07/01 PO 2208 Labetalol HCl 100 MG BID 04/10 1000 AC 07/01 PO 2208 Lactobacillus 1 CAP BID 05/24 2200 AC 07/01 Acidophilus PO 220 Lamotrigine 150 MG DAILY 04/22 1000 AC 07/01 PO 0813 Lidocaine 15 ML TID PRN 06/14 1130 AC 06/14 PO 1414 Multivitamins 1 TAB 1000 04/10 1000 AC 07/01 PO 0809 Omeprazole 40 MG DAILY AC 04/20 1325 AC 07/02 PO 0556 Oxcarbazepine 600 MG BID 04/10 1000 AC 07/01 PO 2205 Propranolol HCl 10 MG BID 04/10 1000 AC 07/01 PO 2204 Quetiapine Fumarate 400 MG AT BEDTIME 04/10 0215 AC 07/01 PO 2204 Sevelamer Carbonate 2,400 MG TIDAC 04/10 0800 AC 07/02 PO 0750 Sodium Polystyrene 60 ML QMON 05/21 0700 AC 06/25 Sulfonate PO 0644 Sodium Polystyrene 60 ML QSUN 05/20 0700 AC 07/01 Sulfonate PO 0648 Tiotropium [place] 1 PUF DAILY 04/10 1000 AC 07/01 INH 0809 Laboratory Tests 07/02/17 0809: Anion Gap 19 H, Estimated GFR Pending, BUN/Creatinine Ratio 7.7, Calcium 8.6, CBC w Diff NO MAN DIFF REQ, RBC 4.07 L, MCV 88.9, MCH 29.2, MCHC 32.9 L, RDW 17.1 H, MPV 7.2 L, Gran % 62.9, Lymphocytes % 22.4, Monocytes % 6.2, Eosinophils % 7.5 H, Basophils % 1.0, Absolute Granulocytes 4.7, Absolute Lymphocytes 1.7, Absolute Monocytes 0.5, Absolute Eosinophils 0.6, Absolute Basophils 0.1 Vital Signs Date Time Temp Pulse Resp B/P B/P Pulse O2 O2 Flow FiO2 Mean Ox Delivery Rate 07/02 0631 97.0 72 20 150/86 96 03/04 2249 97.4 96 20 146/76 96 03/04 2217 97.7 97 18 150/84 95 03/04 2208 97 150/84 03/04 1737 86 164/88 03/ 1508 97.6 81 20 120/78 95 Room Air
[2017-07-02 15:30] VITALS: BP 134/84
[2017-07-02 21:12] VITALS: BP 130/80
[2017-07-03 07:31] VITALS: BP 118/74
--- NOTE | 2017-07-03 10:17 | PN- Att Addend ---
Attending Addendum Attending Brief Note No new complaints her vital signs are stable. No fever. No changes on physical if continue present treatment and disposition plans. Intake & Output 07/03 1600 07/03 0400 07/02 1600 07/02 0400 07/01 1600 07/01 0400 Intake Total 240 250 297 469 4003 450 Output Total Balance 240 250 984 219 6673 450 Intake, IV 0 Intake, Oral 240 250 960 140 3844 450 Number 0 Bowel Movements Patient 222 lb 206 lb 214 lb Weight Weight Bed scale Bed scale Measurement Method Current Medications Sig/Grace Start time Last Medication Dose Route Stop Time Status Admin Acetaminophen 325 MG Q6-PRN PRN 04/09 2245 AC 06/17 PO 2349 Albuterol Sulfate 2 PUF Q4P PRN 04/09 2300 AC 06/13 INH 2001 Aripiprazole 400 MG Q30D 04/24 0900 AC 06/23 IM 0942 Aspirin Buffered 81 MG 0800 04/10 0800 AC 07/03 PO 0815 Atorvastatin Calcium 40 MG 1700 04/10 1700 AC 07/02 PO 1645 Benzocaine 1 GAVIN 4 TIMES/DAY PRN 06/14 1130 AC TOP Benztropine Mesylate 0.5 MG BID 04/10 1000 AC 07/02 PO 2104 Cinacalcet 60 MG DAILY 05/18 1000 AC 07/02 PO 1330 Epoetin Florent[place] 8,000 UNIT MoWeFr PRN 06/25 1130 AC IV Furosemide 80 MG 0800,2200 04/10 0800 AC 07/03 PO 0815 Gabapentin 300 MG AT BEDTIME 04/10 0215 AC 07/02 PO 210 Hydralazine HCl 20 MG TID 05/08 1100 AC 07/02 PO 210 Labetalol HCl 100 MG BID 04/10 1000 AC 07/02 PO 2103 Lactobacillus 1 CAP BID 05/24 2200 AC 07/02 Acidophilus PO 210 Lamotrigine 150 MG DAILY 04/22 1000 AC 07/02 PO 1331 Lidocaine 15 ML TID PRN 06/14 1130 AC 06/14 PO 1414 Multivitamins 1 TAB 1000 04/10 1000 AC 07/02 PO 1330 Omeprazole 40 MG DAILY AC 04/20 1325 AC 07/03 PO 0625 Oxcarbazepine 600 MG BID 04/10 1000 AC 07/02 PO 210 Propranolol HCl 10 MG BID 04/10 1000 AC 07/02 PO 210 Quetiapine Fumarate 400 MG AT BEDTIME 04/10 0215 AC 07/02 PO 210 Sevelamer Carbonate 2,400 MG TIDAC 04/10 0800 AC 07/03 PO 0815 Sodium Polystyrene 60 ML QMON 05/21 0700 AC 06/25 Sulfonate PO 0644 Sodium Polystyrene 60 ML QSUN 05/20 0700 AC 07/01 Sulfonate PO 0648 Tiotropium [place] 1 PUF DAILY 04/10 1000 AC 07/02 INH 1325 Laboratory Tests 07/02/17 0809: Anion Gap 19 H, Estimated GFR 5 L, BUN/Creatinine Ratio 7.7, Calcium 8.6, CBC w Diff NO MAN DIFF REQ, RBC 4.07 L, MCV 88.9, MCH 29.2, MCHC 32.9 L, RDW 17.1 H, MPV 7.2 L, Gran % 62.9, Lymphocytes % 22.4, Monocytes % 6.2, Eosinophils % 7.5 H, Basophils % 1.0, Absolute Granulocytes 4.7, Absolute Lymphocytes 1.7, Absolute Monocytes 0.5, Absolute Eosinophils 0.6, Absolute Basophils 0.1 Vital Signs Date Time Temp Pulse Resp B/P B/P Pulse O2 O2 Flow FiO2 Mean Ox Delivery Rate 07/03 730 98.0 82 18 118/74 96 07/03 2111 98.1 78 18 130/80 97 Room Air 07/03 2103 78 130/80 07/03 2103 78 130/80 07/02 2102 78 130/80 03/05 1645 84 134/84 03/05 1530 97.3 84 18 134/84 96 03/05 1330 90 130/86 03/05 1330 90 130/86 03/05 1329 90 130/86
--- NOTE | 2017-07-03 11:23 | PN- Psychiatry ---
Assessment/Plan Impression: 62 , male admitted on 04/10/17 with CC SOB. Admitted for symptomatic anemia, chest pain and guiac positive stool. In February 2017, he had a cardiac arrest while in the label cutter at [facility], requiring 6 days in their ICU. PMH incudes ESRD on hemodialysis and bipolar disorder. The patient is eager to be discharged, and is unhappy with the lack of progress in his disposition. He is awaiting placement at a nursing facility, per the wishes of his conservator. Our hospital legal depertment has advised case management that if the patient wishes to leave, we are not to restrain him mechanically or chemically. The patient recognises that he was admitted because of non-adherence to hemodialysis appointments and medications. He states that before admission, he was "sick of dialysis and I missed a few times." He denies suicidal ideation, reports he is full code and that he decided not to make a living will. Further, he states, "I can not go to dialyses if I don't want to, can't I?" Nephrology noted yesterday that the patient's potassium and weight have increased, due to dietary indescretions, which is impacting his renal care. The patient continues with hemodialysis 3X/week, on Sunday, Sunday and Sunday. The patient has had several opportunities to return home after an extended period at [facility] in 2015, approx. one year at [facility] and again here at [facility] since 03/2017. He has missed a few dialysis sessions as an outpatient. Suggestion: 1. Continue the current psychotropic medications, as ordered: Quetiapine 400 mg PO at bedtime Oxcarbemazapine 600 mg PO 2X/day Lamotrigine 150 mg PO daily Benztropine 0.5 mg PO 2X/day Abilify Maintena 400 mg IM every 30 days, last on 06/23/17; next due on 07/21/17 2. The patient's conservator is Ciarra Whitt, , X. [phone]. 3. Advise us one week before next administration of Abilify Maintena, if pharmacy does not have the medication for the patient. We will continue to follow along with you. Subjective Subjective: Calm and cooperative. Alert and oriented. Denies AH, VH and presents no rufina delusions. Denies SI or HI. Insight and judgement moderate Not in distress.
[2017-07-03 14:54] VITALS: BP 154/88
[2017-07-03 22:31] VITALS: BP 122/70
[2017-07-04 06:46] VITALS: BP 110/70
[2017-07-04 10:23] LABS: ABSOLUTE BASOPHIL COUNT 0 /CUMM (0.0-0.2); ABSOLUTE EOSINOPHIL COUNT 0.6 /CUMM (0.0-0.7); ABSOLUTE GRANULOCYTE CT 4.3 /CUMM (1.4-6.5); ABSOLUTE LYMPH COUNT 1.7 /CUMM (1.2-3.4); ABSOLUTE MONOCYTE COUNT 0.7 /CUMM (0.10-0.60); BASOPHIL % 0.3 % (0.0-2.0); EOSINOPHIL % 7.9 % (0-5); GRANULOCYTE % 58.7 % (42.2-75.2); HEMATOCRIT 40.6 % (42-52); MEAN CORPUSCULAR HGB 28.1 PG (27.0-31.0); MEAN CORPUSCULAR HGB CONC 31.3 G/DL (33.0-37.0); MEAN CORPUSCULAR VOLUME 89.8 FL (80.0-94.0); MEAN PLATELET VOLUME 7.1 FL (7.4-10.4); PLATELET COUNT 386 /CUMM (130-400); RBC DISTRIBUTION WIDTH 17.7 % (11.5-14.5); RED BLOOD CELL CT 4.52 /CUMM (4.70-6.10); WHITE BLOOD CELL COUNT 7.4 /CUMM (4.8-10.8)
--- NOTE | 2017-07-04 12:17 | PN- Nephrology ---
Assessment/Plan Nephrology Assessment: ESRD - Routine HD today. Dietary indiscretion has led to hyperkalemia and large intradialytic weight gains. May only be able to get down to 96kg today although I would keep the 94kg EDW. Anemia - Hg above goal - Hold MICHAEL and restart at 6000U TIW once Hg <11. Hyperkalemia - On 1K bath. Needs to restrict potassium. Will switch to 2K bath if/when K<4.0. Suggestion: -HD today -1K bath for today - f/u pre-HD BMP - switch to 2K if K<4.0 -2g salt restriction -Hold Epogen - restart at 6000U TIW once Hg<11 -Dispo planning Please call [phone] with ?'s Subjective Subjective: Pt seen and examined on dialysis K 5.4 No specific complaints Objective Vital Signs and I&Os Vital Signs Date Time Temp Pulse Resp B/P B/P Pulse O2 O2 Flow FiO2 Mean Ox Delivery Rate 07/04 0646 97.5 74 18 110/70 97 Room Air 07/03 2231 98.1 78 18 122/70 95 Room Air 03/ 2152 78 122/70 03/ 2151 78 122/70 / 2151 78 122/70 / 1621 79 154/88 03/06 1454 98.1 79 20 154/88 95 Intake & Output / 1600 /07 0400 / 1600 03/06 0400 03/05 1600 03/05 0400 Intake Total 200 200 720 250 840 240 Output Total Balance 200 200 720 250 840 240 Intake, IV 0 Intake, Oral 200 200 720 250 840 240 Number 1 Bowel Movements Patient 204 lb 222 lb 206 lb Weight Weight Bed scale Bed scale Measurement Method Physical Exam: Gen - NAD HEENT - supple CV - RRR, no m/r/g Chest - clear anteriorly, no w/r/r Abd - soft, NTND Ext - warm, trace edema, LLA AVF +bruit Neuro - AOX3, grossly nonfocal Current Medications: Current Medications Sig/Grace Start time Last Medication Dose Route Stop Time Status Admin Acetaminophen 325 MG Q6-PRN PRN 04/09 2245 AC 06/17 PO 234 Albuterol Sulfate 2 PUF Q4P PRN 04/09 2300 AC 06/13 INH 2001 Aripiprazole 400 MG Q30D 04/24 0900 AC 06/23 IM 0942 Aspirin Buffered 81 MG 0800 04/10 0800 AC 07/03 PO 0815 Atorvastatin Calcium 40 MG 1700 04/10 1700 AC 07/03 PO 1620 Benzocaine 1 GAVIN 4 TIMES/DAY PRN 06/14 1130 AC TOP Benztropine Mesylate 0.5 MG BID 04/10 1000 AC 07/03 PO 2152 Cinacalcet 60 MG DAILY 05/18 1000 AC 07/03 PO 1100 Epoetin [place] 8,000 UNIT MoWeFr PRN 06/25 1130 AC IV Furosemide 80 MG 0800,0 04/10 0800 AC 07/03 PO 2152 Gabapentin 300 MG AT BEDTIME 04/10 0215 AC 07/03 PO 2152 Hydralazine HCl 20 MG TID 05/08 1100 AC 07/03 PO 2151 Labetalol HCl 100 MG BID 04/10 1000 AC 07/03 PO 2152 Lactobacillus 1 CAP BID 05/24 2200 AC 07/03 Acidophilus PO 2151 Lamotrigine 150 MG DAILY 04/22 1000 AC 07/03 PO 1100 Lidocaine 15 ML TID PRN 06/14 1130 AC 06/14 PO 1414 Multivitamins 1 TAB 1000 04/10 1000 AC 07/03 PO 1100 Omeprazole 40 MG DAILY AC 04/20 1325 AC 07/04 PO 0636 Oxcarbazepine 600 MG BID 04/10 1000 AC 07/03 PO 2152 Propranolol HCl 10 MG BID 04/10 1000 AC 07/03 PO 2151 Quetiapine Fumarate 400 MG AT BEDTIME 04/10 0215 AC 07/03 PO 2152 Sevelamer Carbonate 2,400 MG TIDAC 04/10 0800 AC 07/03 PO 1621 Sodium Polystyrene 60 ML QMON 05/21 0700 AC 06/25 Sulfonate PO 0644 Sodium Polystyrene 60 ML QSUN 05/20 0700 AC 07/01 Sulfonate PO 0648 Tiotropium [place] 1 PUF DAILY 04/10 1000 AC 07/03 INH 1100 Results Pertinent Lab Results: Laboratory Tests 07/04 03/05 0800 0809 Chemistry Sodium (137 - 145 mmol/L) 139 137 Potassium (3.5 - 5.1 mmol/L) 5.4 H 5.6 H Chloride (98 - 107 mmol/L) 99 97 L Carbon Dioxide (22 - 30 mmol/L) 22 21 L Anion Gap (5 - 16) 17 H 19 H BUN (9 - 20 mg/dL) 72 H 82 H Creatinine (0.7 - 1.2 mg/dL) 10.0 *H 10.7 *H Estimated GFR (>60 ml/min) 5 L 5 L BUN/Creatinine Ratio (7 - 25 %) 7.2 7.7 Calcium (8.4 - 10.2 mg/dL) 8.6 Phosphorus (2.5 - 4.5 mg/dL) 4.5 Magnesium (1.6 - 2.3 mg/dL) 2.3 Hematology CBC w Diff NO MAN DIFF REQ NO MAN DIFF REQ WBC (4.8 - 10.8 /CUMM) 7.4 7.5 RBC (4.70 - 6.10 /CUMM) 4.52 L 4.07 L Hgb (14.0 - 18.0 G/DL) 12.7 L 11.9 L Hct (42 - 52 %) 40.6 L 36.2 L MCV (80.0 - 94.0 FL) 89.8 88.9 MCH (27.0 - 31.0 PG) 28.1 29.2 MCHC (33.0 - 37.0 G/DL) 31.3 L 32.9 L RDW (11.5 - 14.5 %) 17.7 H 17.1 H Plt Count (130 - 400 /CUMM) 386 354 MPV (7.4 - 10.4 FL) 7.1 L 7.2 L Gran % (42.2 - 75.2 %) 58.7 62.9 Lymphocytes % (20.5 - 51.1 %) 23.5 22.4 Monocytes % (1.7 - 9.3 %) 9.6 H 6.2 Eosinophils % (0 - 5 %) 7.9 H 7.5 H Basophils % (0.0 - 2.0 %) 0.3 1.0 Absolute Granulocytes (1.4 - 6.5 /CUMM) 4.3 4.7 Absolute Lymphocytes (1.2 - 3.4 /CUMM) 1.7 1.7 Absolute Monocytes (0.10 - 0.60 /CUMM) 0.7 H 0.5 Absolute Eosinophils (0.0 - 0.7 /CUMM) 0.6 0.6 Absolute Basophils (0.0 - 0.2 /CUMM) 0 0.1 Imaging/Other Studies: None new
[2017-07-04 13:14] VITALS: BP 121/81
--- NOTE | 2017-07-04 14:01 | PN- Att Addend ---
Attending Addendum Attending Brief Note Had his hemodialysis earlier today. Vital signs stable no fever. No new changes on physical. Continue treatment and continued disposition plans. Intake & Output 07/04 1600 07/04 0400 07/03 1600 07/03 0400 07/02 1600 07/02 0400 Intake Total 200 200 720 250 840 240 Output Total Balance 200 200 720 250 840 240 Intake, IV 0 Intake, Oral 200 200 720 250 840 240 Number 1 Bowel Movements Patient 216 lb 222 lb 206 lb Weight Weight Bed scale Bed scale Measurement Method Current Medications Sig/Grace Start time Last Medication Dose Route Stop Time Status Admin Acetaminophen 325 MG Q6-PRN PRN 04/09 2245 AC 06/17 PO 2349 Albuterol Sulfate 2 PUF Q4P PRN 04/09 2300 AC 06/13 INH 2001 Aripiprazole 400 MG Q30D 04/24 0900 AC 06/23 IM 0942 Aspirin Buffered 81 MG 0800 04/10 0800 AC 07/04 PO 1249 Atorvastatin Calcium 40 MG 1700 04/10 1700 AC 07/03 PO 1620 Benzocaine 1 GAVIN 4 TIMES/DAY PRN 06/14 1130 AC TOP Benztropine Mesylate 0.5 MG BID 04/10 1000 AC 07/04 PO 1249 Cinacalcet 60 MG DAILY 05/18 1000 AC 07/04 PO 1250 Epoetin [place] 8,000 UNIT MoWeFr PRN 06/25 1130 AC IV Furosemide 80 MG 0800,2200 04/10 0800 AC 07/04 PO 1249 Gabapentin 300 MG AT BEDTIME 04/10 0215 AC 07/03 PO 2152 Hydralazine HCl 20 MG TID 05/08 1100 AC 07/03 PO 2151 Labetalol HCl 100 MG BID 04/10 1000 AC 07/03 PO 2152 Lactobacillus 1 CAP BID 05/24 2200 AC 07/04 Acidophilus PO 1247 Lamotrigine 150 MG DAILY 04/22 1000 AC 07/04 PO 1250 Lidocaine 15 ML TID PRN 06/14 1130 AC 06/14 PO 1414 Multivitamins 1 TAB 1000 04/10 1000 AC 07/04 PO 1248 Omeprazole 40 MG DAILY AC 04/20 1325 AC 07/04 PO 0636 Oxcarbazepine 600 MG BID 04/10 1000 AC 07/04 PO 1247 Propranolol HCl 10 MG BID 04/10 1000 AC 07/03 PO 2151 Quetiapine Fumarate 400 MG AT BEDTIME 04/10 0215 AC 07/03 PO 2152 Sevelamer Carbonate 2,400 MG TIDAC 04/10 0800 AC 07/04 PO 1244 Sodium Polystyrene 60 ML QMON 05/21 0700 AC 06/25 Sulfonate PO 0644 Sodium Polystyrene 60 ML QSUN 05/20 0700 AC 07/01 Sulfonate PO 0648 Tiotropium [place] 1 PUF DAILY 04/10 1000 AC 07/04 INH 1251 Laboratory Tests 07/04/17 0800: Anion Gap 17 H, Estimated GFR 5 L, BUN/Creatinine Ratio 7.2, Phosphorus 4.5, Magnesium 2.3, CBC w Diff NO MAN DIFF REQ, RBC 4.52 L, MCV 89.8, MCH 28.1, MCHC 31.3 L, RDW 17.7 H, MPV 7.1 L, Gran % 58.7, Lymphocytes % 23.5, Monocytes % 9.6 H, Eosinophils % 7.9 H, Basophils % 0.3, Absolute Granulocytes 4.3, Absolute Lymphocytes 1.7, Absolute Monocytes 0.7 H, Absolute Eosinophils 0.6, Absolute Basophils 0 07/02/17 0809: Anion Gap 19 H, Estimated GFR 5 L, BUN/Creatinine Ratio 7.7, Calcium 8.6, CBC w Diff NO MAN DIFF REQ, RBC 4.07 L, MCV 88.9, MCH 29.2, MCHC 32.9 L, RDW 17.1 H, MPV 7.2 L, Gran % 62.9, Lymphocytes % 22.4, Monocytes % 6.2, Eosinophils % 7.5 H, Basophils % 1.0, Absolute Granulocytes 4.7, Absolute Lymphocytes 1.7, Absolute Monocytes 0.5, Absolute Eosinophils 0.6, Absolute Basophils 0.1 Vital Signs Date Time Temp Pulse Resp B/P B/P Pulse O2 O2 Flow FiO2 Mean Ox Delivery Rate 07/04 1314 98.5 90 18 121/81 97 Room Air 07/04 0646 97.5 74 18 110/70 97 Room Air 07/03 2231 98.1 78 18 122/70 95 Room Air 07/04 2151 78 122/70 07/03 215 78 122/70 07/03 215 78 122/70 07/03 1621 79 154/88 07/03 1454 98.1 79 20 154/88 95
[2017-07-04 22:04] VITALS: BP 122/80
[2017-07-05 07:04] VITALS: BP 124/78
--- NOTE | 2017-07-05 12:20 | PN- Att Addend ---
Attending Addendum Attending Brief Note No new complaints wants to go home vital signs are stable no fever or no changes on physical to continue present treatments and hemodialysis treatment times a week still looking for placement. Intake & Output 07/05 04007/04 0400 07/03 1600 07/03 0400 Intake Total 120 240 660 200 720 250 Output Total Balance 120 240 660 200 720 250 Intake, IV 0 Intake, Oral 120 240 660 200 720 250 Number 1 1 Bowel Movements Patient 221 lb 216 lb 222 lb Weight Weight Bed scale Measurement Method Current Medications Sig/Grace Start time Last Medication Dose Route Stop Time Status Admin Acetaminophen 325 MG Q6-PRN PRN 04/09 2245 AC 06/17 PO 2349 Albuterol Sulfate 2 PUF Q4P PRN 04/09 2300 AC 06/13 INH 2001 Aripiprazole 400 MG Q30D 04/24 0900 AC 06/23 IM 0942 Aspirin Buffered 81 MG 0800 04/10 0800 AC 07/05 PO 0802 Atorvastatin Calcium 40 MG 1700 04/10 1700 AC 07/04 PO 1601 Benzocaine 1 GAVIN 4 TIMES/DAY PRN 06/14 1130 AC TOP Benztropine Mesylate 0.5 MG BID 04/10 1000 AC 07/05 PO 1045 Cinacalcet 60 MG DAILY 05/18 1000 AC 07/05 PO 1045 Epoetin [place] 8,000 UNIT MoWeFr PRN 06/25 1130 AC IV Furosemide 80 MG 0800,2200 04/10 0800 AC 07/05 PO 0802 Gabapentin 300 MG AT BEDTIME 04/10 0215 AC 07/04 PO 2101 Hydralazine HCl 20 MG TID 05/08 1100 AC 07/05 PO 1044 Labetalol HCl 100 MG BID 04/10 1000 AC 07/05 PO 1045 Lactobacillus 1 CAP BID 05/24 2200 AC 07/05 Acidophilus PO 1044 Lamotrigine 150 MG DAILY 04/22 1000 AC 07/05 PO 1047 Lidocaine 15 ML TID PRN 06/14 1130 AC 06/14 PO 1414 Multivitamins 1 TAB 1000 04/10 1000 AC 07/05 PO 1045 Omeprazole 40 MG DAILY AC 04/20 1325 AC 07/05 PO 0557 Oxcarbazepine 600 MG BID 04/10 1000 AC 07/05 PO 1045 Propranolol HCl 10 MG BID 04/10 1000 AC 07/05 PO 1044 Quetiapine Fumarate 400 MG AT BEDTIME 04/10 0215 AC 07/04 PO 2101 Sevelamer Carbonate 2,400 MG TIDAC 04/10 0800 AC 07/05 PO 0802 Sodium Polystyrene 60 ML QMON 05/21 0700 AC 06/25 Sulfonate PO 0644 Sodium Polystyrene 60 ML QSUN 05/20 0700 AC 07/01 Sulfonate PO 0648 Tiotropium [place] 1 PUF DAILY 04/10 1000 AC 07/05 INH 1047 Laboratory Tests 07/04/17 1200: 07/04/17 1156: BUN Cancelled 07/04/17 0800: Anion Gap 17 H, Estimated GFR 5 L, BUN/Creatinine Ratio 7.2, Phosphorus 4.5, Magnesium 2.3, CBC w Diff NO MAN DIFF REQ, RBC 4.52 L, MCV 89.8, MCH 28.1, MCHC 31.3 L, RDW 17.7 H, MPV 7.1 L, Gran % 58.7, Lymphocytes % 23.5, Monocytes % 9.6 H, Eosinophils % 7.9 H, Basophils % 0.3, Absolute Granulocytes 4.3, Absolute Lymphocytes 1.7, Absolute Monocytes 0.7 H, Absolute Eosinophils 0.6, Absolute Basophils 0 Vital Signs Date Time Temp Pulse Resp B/P B/P Pulse O2 O2 Flow FiO2 Mean Ox Delivery Rate 07/05 1045 124/78 08 1044 124/78 / 1044 124/78 /08 0704 98.4 73 18 124/78 96 /07 2204 98.4 83 19 122/80 96 Room Air 07/04 210 83 122/80 /07 2101 83 122/80 03/07 2101 83 122/80 03/07 1601 90 121/81 03/07 1359 90 121/81 03/07 1359 90 121/81 03/07 1358 90 121/81 03/07 1314 98.5 90 18 121/81 97 Room Air
[2017-07-05 14:44] VITALS: BP 122/74
[2017-07-05 22:46] VITALS: BP 118/68
[2017-07-06 06:45] VITALS: BP 108/72
--- NOTE | 2017-07-06 11:22 | PN- Att Addend ---
Attending Addendum Attending Brief Note Patient comfortable in bed waiting to go for his hemodialysis today, running a little late. Vital signs are stable no fever, no changes on physical. Continue present treatment and disposition plans. Intake & Output 07/06 1600 07/06 0400 07/05 1600 07/05 0400 07/04 1600 07/04 0400 Intake Total 098 843 1627 240 660 200 Output Total Balance 554 764 4521 240 660 200 Intake, IV 0 Intake, Oral 982 802 0416 240 660 200 Number 0 1 Bowel Movements Patient 204 lb 221 lb 216 lb Weight Weight Bed scale Measurement Method Current Medications Sig/Grace Start time Last Medication Dose Route Stop Time Status Admin Acetaminophen 325 MG Q6-PRN PRN 04/09 2245 AC 06/17 PO 2349 Albuterol Sulfate 2 PUF Q4P PRN 04/09 2300 AC 06/13 INH 2001 Aripiprazole 400 MG Q30D 04/24 0900 AC 06/23 IM 0942 Aspirin Buffered 81 MG 0800 04/10 0800 AC 07/05 PO 0802 Atorvastatin Calcium 40 MG 1700 04/10 1700 AC 07/05 PO 1716 Benzocaine 1 GAVIN 4 TIMES/DAY PRN 06/14 1130 AC TOP Benztropine Mesylate 0.5 MG BID 04/10 1000 AC 07/05 PO 2139 Cinacalcet 60 MG DAILY 05/18 1000 AC 07/05 PO 1045 Epoetin [place] 8,000 UNIT MoWeFr PRN 06/25 1130 AC IV Furosemide 80 MG 0800,2200 04/10 0800 AC 07/05 PO 2139 Gabapentin 300 MG AT BEDTIME 04/10 0215 AC 07/05 PO 2139 Hydralazine HCl 20 MG TID 05/08 1100 AC 07/05 PO 2138 Labetalol HCl 100 MG BID 04/10 1000 AC 07/05 PO 2140 Lactobacillus 1 CAP BID 05/24 2200 AC 07/05 Acidophilus PO 2139 Lamotrigine 150 MG DAILY 04/22 1000 AC 07/05 PO 1047 Lidocaine 15 ML TID PRN 06/14 1130 AC 06/14 PO 1414 Multivitamins 1 TAB 1000 04/10 1000 AC 07/05 PO 1045 Omeprazole 40 MG DAILY AC 04/20 1325 AC 07/06 PO 0631 Oxcarbazepine 600 MG BID 04/10 1000 AC 07/05 PO 2140 Propranolol HCl 10 MG BID 04/10 1000 AC 07/05 PO 2138 Quetiapine Fumarate 400 MG AT BEDTIME 04/10 0215 AC 07/05 PO 213 Sevelamer Carbonate 2,400 MG TIDAC 04/10 0800 AC 07/06 PO 0838 Sodium Polystyrene 60 ML QMON 05/21 0700 AC 06/25 Sulfonate PO 0644 Sodium Polystyrene 60 ML QSUN 05/20 07 AC 07/01 Sulfonate PO 0648 Tiotropium [place] 1 PUF DAILY 04/10 1000 AC 07/05 INH 1047 Laboratory Tests 07/04/17 1200: 07/04/17 1156: BUN Cancelled 07/04/17 0800: Anion Gap 17 H, Estimated GFR 5 L, BUN/Creatinine Ratio 7.2, Phosphorus 4.5, Magnesium 2.3, CBC w Diff NO MAN DIFF REQ, RBC 4.52 L, MCV 89.8, MCH 28.1, MCHC 31.3 L, RDW 17.7 H, MPV 7.1 L, Gran % 58.7, Lymphocytes % 23.5, Monocytes % 9.6 H, Eosinophils % 7.9 H, Basophils % 0.3, Absolute Granulocytes 4.3, Absolute Lymphocytes 1.7, Absolute Monocytes 0.7 H, Absolute Eosinophils 0.6, Absolute Basophils 0 Vital Signs Date Time Temp Pulse Resp B/P B/P Pulse O2 O2 Flow FiO2 Mean Ox Delivery Rate 07/06 0545 97.6 73 18 108/72 96 07/05 2246 97.6 88 18 118/68 98 Room Air 07/06 2139 88 118/68 07/05 2138 88 118/68 07/05 2137 88 118/68 07/05 1715 122/74 07/05 1444 97.7 86 18 122/74 97 Room Air
[2017-07-06 13:47] VITALS: BP 140/68
[2017-07-06 14:27] LABS: ABSOLUTE BASOPHIL COUNT 0.1 /CUMM (0.0-0.2); ABSOLUTE EOSINOPHIL COUNT 0.5 /CUMM (0.0-0.7); ABSOLUTE GRANULOCYTE CT 5.6 /CUMM (1.4-6.5); ABSOLUTE MONOCYTE COUNT 0.8 /CUMM (0.10-0.60); BASOPHIL % 0.9 % (0.0-2.0); GRANULOCYTE % 61.4 % (42.2-75.2); HEMATOCRIT 40.4 % (42-52); MEAN CORPUSCULAR HGB 28.6 PG (27.0-31.0); MEAN CORPUSCULAR VOLUME 89.3 FL (80.0-94.0); MEAN PLATELET VOLUME 6.9 FL (7.4-10.4); PLATELET COUNT 353 /CUMM (130-400); RBC DISTRIBUTION WIDTH 17.9 % (11.5-14.5); RED BLOOD CELL CT 4.52 /CUMM (4.70-6.10); WHITE BLOOD CELL COUNT 9.1 /CUMM (4.8-10.8)
--- NOTE | 2017-07-06 14:48 | PN- Nephrology ---
Assessment/Plan Nephrology Assessment: ESRD - Routine HD today. Dietary indiscretion has led to hyperkalemia and large intradialytic weight gains. Under EDW although doubt weight accurate. Cont to target EDW 94.0kg. Pt wants 4L taken off which we can try for. Anemia - Hg above goal - Hold MICHAEL and restart at 6000U TIW once Hg <11. Hyperkalemia - On 1K bath. Needs to restrict potassium. Will switch to 2K bath if/when K<4.0. Suggestion: -HD today -1K bath for today - f/u pre-HD BMP - switch to 2K if K<4.0 -2g salt restriction -Hold Epogen - restart at 6000U TIW once Hg<11 -Dispo planning Please call [phone] with ?'s Subjective Subjective: Pt seen and examined on dialysis No complaints No change to clinical status Pre-HD labs pending Objective Vital Signs and I&Os Vital Signs Date Time Temp Pulse Resp B/P B/P Pulse O2 O2 Flow FiO2 Mean Ox Delivery Rate 07/06 1347 97.6 82 20 140/68 95 Room Air 07/06 0645 97.6 73 18 108/72 96 07/05 2246 97.6 88 18 118/68 98 Room Air 07/05 2140 88 118/68 08 2139 88 118/68 07/05 2138 88 118/68 08 1715 122/74 Intake & Output 07/06 1600 07/06 0400 07/05 1600 07/05 0400 07/04 1600 07/04 0400 Intake Total 621 706 5569 240 660 200 Output Total Balance 113 831 0642 240 660 200 Intake, IV 0 Intake, Oral 480 414 5657 240 660 200 Number 0 1 Bowel Movements Patient 204 lb 221 lb 216 lb Weight Weight Bed scale Measurement Method Physical Exam: Gen - NAD HEENT - supple CV - RRR, no m/r/g Chest - clear anteriorly, no w/r/r Abd - soft, NTND Ext - warm, no edema, LLA AVF +bruit Neuro - AOX3, grossly nonfocal Current Medications: Current Medications Sig/Grace Start time Last Medication Dose Route Stop Time Status Admin Acetaminophen 325 MG Q6-PRN PRN 04/09 2245 AC 06/17 PO 9 Albuterol Sulfate 2 PUF Q4P PRN 04/09 2300 AC 06/13 INH 2001 Aripiprazole 400 MG Q30D 04/24 0900 AC 06/23 IM 0942 Aspirin Buffered 81 MG 0800 04/10 0800 AC 07/05 PO 0802 Atorvastatin Calcium 40 MG 1700 04/10 1700 AC 07/05 PO 1716 Benzocaine 1 GAVIN 4 TIMES/DAY PRN 06/14 1130 AC TOP Benztropine Mesylate 0.5 MG BID 04/10 1000 AC 07/05 PO 2139 Cinacalcet 60 MG DAILY 05/18 1000 AC 07/05 PO 1045 Epoetin [place] 8,000 UNIT MoWeFr PRN 06/25 1130 AC IV Furosemide 80 MG 0800,2200 04/10 0800 AC 07/05 PO 2139 Gabapentin 300 MG AT BEDTIME 04/10 0215 AC 07/05 PO 2139 Hydralazine HCl 20 MG TID 05/08 1100 AC 07/05 PO 2138 Labetalol HCl 100 MG BID 04/10 1000 AC 07/05 PO 2140 Lactobacillus 1 CAP BID 05/24 2200 AC 07/05 Acidophilus PO 2139 Lamotrigine 150 MG DAILY 04/22 1000 AC 07/05 PO 1047 Lidocaine 15 ML TID PRN 06/14 1130 AC 06/14 PO 1414 Multivitamins 1 TAB 1000 04/10 1000 AC 07/05 PO 1045 Omeprazole 40 MG DAILY AC 04/20 1325 AC 07/06 PO 0631 Oxcarbazepine 600 MG BID 04/10 1000 AC 07/05 PO 2140 Propranolol HCl 10 MG BID 04/10 1000 AC 07/05 PO 2139 Quetiapine Fumarate 400 MG AT BEDTIME 04/10 0215 AC 07/05 PO 2139 Sevelamer Carbonate 2,400 MG TIDAC 04/10 0800 AC 07/06 PO 1321 Sodium Polystyrene 60 ML QMON 05/21 0700 AC 06/25 Sulfonate PO 0644 Sodium Polystyrene 60 ML QSUN 05/20 0700 AC 07/01 Sulfonate PO 0648 Tiotropium [place] 1 PUF DAILY 04/10 1000 AC 07/05 INH 1047 Results Pertinent Lab Results: Laboratory Tests 07/06 07/04 03/ 1410 1200 1156 Chemistry Sodium Pending Potassium Pending Chloride Pending Carbon Dioxide Pending Anion Gap Pending BUN (9 - 20 mg/dL) Pending 7 L Cancelled Creatinine Pending BUN/Creatinine Ratio Pending Calcium Pending Hematology CBC w Diff NO MAN DIFF REQ WBC (4.8 - 10.8 /CUMM) 9.1 RBC (4.70 - 6.10 /CUMM) 4.52 L Hgb (14.0 - 18.0 G/DL) 12.9 L Hct (42 - 52 %) 40.4 L MCV (80.0 - 94.0 FL) 89.3 MCH (27.0 - 31.0 PG) 28.6 MCHC (33.0 - 37.0 G/DL) 32.0 L RDW (11.5 - 14.5 %) 17.9 H Plt Count (130 - 400 /CUMM) 353 MPV (7.4 - 10.4 FL) 6.9 L Gran % (42.2 - 75.2 %) 61.4 Lymphocytes % (20.5 - 51.1 %) 22.5 Monocytes % (1.7 - 9.3 %) 9.2 Eosinophils % (0 - 5 %) 6.0 H Basophils % (0.0 - 2.0 %) 0.9 Absolute Granulocytes (1.4 - 6.5 /CUMM) 5.6 Absolute Lymphocytes (1.2 - 3.4 /CUMM) 2.0 Absolute Monocytes (0.10 - 0.60 /CUMM) 0.8 H Absolute Eosinophils (0.0 - 0.7 /CUMM) 0.5 Absolute Basophils (0.0 - 0.2 /CUMM) 0.1 Serology Hep Bs Antigen Pending Hep Bs Antibody Pending 07/04 0800 Chemistry Sodium (137 - 145 mmol/L) 139 Potassium (3.5 - 5.1 mmol/L) 5.4 H Chloride (98 - 107 mmol/L) 99 Carbon Dioxide (22 - 30 mmol/L) 22 Anion Gap (5 - 16) 17 H BUN (9 - 20 mg/dL) 72 H Creatinine (0.7 - 1.2 mg/dL) 10.0 *H Estimated GFR (>60 ml/min) 5 L BUN/Creatinine Ratio (7 - 25 %) 7.2 Phosphorus (2.5 - 4.5 mg/dL) 4.5 Magnesium (1.6 - 2.3 mg/dL) 2.3 Hematology CBC w Diff NO MAN DIFF REQ WBC (4.8 - 10.8 /CUMM) 7.4 RBC (4.70 - 6.10 /CUMM) 4.52 L Hgb (14.0 - 18.0 G/DL) 12.7 L Hct (42 - 52 %) 40.6 L MCV (80.0 - 94.0 FL) 89.8 MCH (27.0 - 31.0 PG) 28.1 MCHC (33.0 - 37.0 G/DL) 31.3 L RDW (11.5 - 14.5 %) 17.7 H Plt Count (130 - 400 /CUMM) 386 MPV (7.4 - 10.4 FL) 7.1 L Gran % (42.2 - 75.2 %) 58.7 Lymphocytes % (20.5 - 51.1 %) 23.5 Monocytes % (1.7 - 9.3 %) 9.6 H Eosinophils % (0 - 5 %) 7.9 H Basophils % (0.0 - 2.0 %) 0.3 Absolute Granulocytes (1.4 - 6.5 /CUMM) 4.3 Absolute Lymphocytes (1.2 - 3.4 /CUMM) 1.7 Absolute Monocytes (0.10 - 0.60 /CUMM) 0.7 H Absolute Eosinophils (0.0 - 0.7 /CUMM) 0.6 Absolute Basophils (0.0 - 0.2 /CUMM) 0 Imaging/Other Studies: None new
[2017-07-06 18:41] VITALS: BP 140/84
[2017-07-06 21:04] VITALS: BP 114/76
[2017-07-07 06:03] VITALS: BP 114/80
--- NOTE | 2017-07-07 12:02 | PN- Att Addend ---
Attending Addendum Attending Brief Note Stable S/p hemodialysis yesterday neelam signs are stable no fever, no changes on physical. Continue present treatment and disposition plans. Intake & Output 07/07 1600 07/07 0800 07/07 0000 Intake Total 240 Output Total Balance 240 Intake, Oral 240 Patient 211 lb 218 lb Weight Weight Bed scale Standing Scale Measurement Method Current Medications Sig/Grace Start time Last Medication Dose Route Stop Time Status Admin Acetaminophen 325 MG Q6-PRN PRN 04/09 2245 AC 06/17 PO 2349 Albuterol Sulfate 2 PUF Q4P PRN 04/09 2300 AC 06/13 INH 2001 Aripiprazole 400 MG Q30D 04/24 0900 AC 06/23 IM 0942 Aspirin Buffered 81 MG 0800 04/10 0800 AC 07/07 PO 0948 Atorvastatin Calcium 40 MG 1700 04/10 1700 AC 07/06 PO 1839 Benzocaine 1 GAVIN 4 TIMES/DAY PRN 06/14 1130 AC TOP Benztropine Mesylate 0.5 MG BID 04/10 1000 AC 07/07 PO 0944 Cinacalcet 60 MG DAILY 05/18 1000 AC 07/07 PO 0942 Epoetin [place] 8,000 UNIT MoWeFr PRN 06/25 1130 AC IV Furosemide 80 MG 0800,2200 04/10 0800 AC 07/07 PO 0943 Gabapentin 300 MG AT BEDTIME 04/10 0215 AC 07/06 PO 2100 Hydralazine HCl 20 MG TID 05/08 1100 AC 07/07 PO 0947 Labetalol HCl 100 MG BID 04/10 1000 AC 07/07 PO 0947 Lactobacillus 1 CAP BID 05/24 2200 AC 07/07 Acidophilus PO 0942 Lamotrigine 150 MG DAILY 04/22 1000 AC 07/07 PO 0943 Lidocaine 15 ML TID PRN 06/14 1130 AC 06/14 PO 1414 Multivitamins 1 TAB 1000 04/10 1000 AC 07/07 PO 0942 Omeprazole 40 MG DAILY AC 04/20 1325 AC 07/07 PO 0538 Oxcarbazepine 600 MG BID 04/10 1000 AC 07/07 PO 0942 Propranolol HCl 10 MG BID 04/10 1000 AC 07/07 PO 0947 Quetiapine Fumarate 400 MG AT BEDTIME 04/10 0215 AC 07/06 PO 205 Sevelamer Carbonate 2,400 MG TIDAC 04/10 0800 AC 07/07 PO 0944 Sodium Polystyrene 60 ML QMON 05/21 0700 AC 06/25 Sulfonate PO 0644 Sodium Polystyrene 60 ML QSUN 05/20 0700 AC 07/01 Sulfonate PO 0648 Tiotropium [place] 1 PUF DAILY 04/10 1000 AC 07/07 INH 0942
[2017-07-07 15:34] VITALS: BP 108/70
[2017-07-07 22:12] VITALS: BP 110/70
[2017-07-07 22:22] VITALS: BP 100/60; BP 128/80
[2017-07-08 06:52] VITALS: BP 102/74
[2017-07-08 14:35] VITALS: BP 120/60
--- NOTE | 2017-07-08 14:43 | PN- Att Addend ---
Attending Addendum Attending Brief Note Stable no new issues Vitals stable Plan Cont dialysis and other meds Social svc is involved Intake & Output 07/08 1600 07/08 0800 07/08 0000 Intake Total 240 240 Output Total Balance 240 240 Intake, Oral 240 240 Patient 187 lb Weight Weight Bed scale Measurement Method Current Medications Sig/Grace Start time Last Medication Dose Route Stop Time Status Admin Acetaminophen 325 MG Q6-PRN PRN 04/09 2245 AC 06/17 PO 2349 Albuterol Sulfate 2 PUF Q4P PRN 04/09 2300 AC 06/13 INH 2001 Aripiprazole 400 MG Q30D 04/24 0900 AC 06/23 IM 0942 Aspirin Buffered 81 MG 0800 04/10 0800 AC 07/08 PO 0848 Atorvastatin Calcium 40 MG 1700 04/10 1700 AC 07/07 PO 1800 Benzocaine 1 GAVIN 4 TIMES/DAY PRN 06/14 1130 AC TOP Benztropine Mesylate 0.5 MG BID 04/10 1000 AC 07/08 PO 1159 Cinacalcet 60 MG DAILY 05/18 1000 AC 07/08 PO 1158 Epoetin [place] 8,000 UNIT MoWeFr PRN 06/25 1130 AC IV Furosemide 80 MG 0800,2200 04/10 0800 AC 07/08 PO 0848 Gabapentin 300 MG AT BEDTIME 04/10 0215 AC 07/07 PO 2209 Hydralazine HCl 20 MG TID 05/08 1100 AC 07/08 PO 1159 Labetalol HCl 100 MG BID 04/10 1000 AC 07/08 PO 1158 Lactobacillus 1 CAP BID 05/24 2200 AC 07/08 Acidophilus PO 1159 Lamotrigine 150 MG DAILY 04/22 1000 AC 07/08 PO 1200 Lidocaine 15 ML TID PRN 06/14 1130 AC 06/14 PO 1414 Multivitamins 1 TAB 1000 04/10 1000 AC 07/08 PO 1159 Omeprazole 40 MG DAILY AC 04/20 1325 AC 07/08 PO 0848 Oxcarbazepine 600 MG BID 04/10 1000 AC 07/08 PO 1158 Propranolol HCl 10 MG BID 04/10 1000 AC 07/08 PO 1159 Quetiapine Fumarate 400 MG AT BEDTIME 04/10 0215 AC 07/07 PO 2208 Sevelamer Carbonate 2,400 MG TIDAC 04/10 0800 AC 07/08 PO 1159 Sodium Polystyrene 60 ML QMON 05/21 0700 AC 06/25 Sulfonate PO 0644 Sodium Polystyrene 60 ML QSUN 05/20 0700 AC 07/08 Sulfonate PO 0532 Tiotropium [place] 1 PUF DAILY 04/10 1000 AC 07/08 INH 1158 Vital Signs Date Time Temp Pulse Resp B/P B/P Pulse O2 O2 Flow FiO2 Mean Ox Delivery Rate 07/08 1435 98.1 80 20 120/60 96 Room Air 07/08 1159 88 130/90 07/08 1159 88 130/90 07/08 1158 88 130/90 07/08 0652 98.0 88 20 102/74 95 07/07 2222 97.9 79 18 100/60 96 Room Air 07/07 2212 110/70 07/07 2208 70 110/70 07/07 2208 70 110/70 07/07 1800 83 118/82 07/07 1534 98.5 78 20 108/70 95
[2017-07-08 22:04] VITALS: BP 142/80
[2017-07-09 06:28] VITALS: BP 141/84
[2017-07-09 08:51] LABS: ABSOLUTE BASOPHIL COUNT 0.1 /CUMM (0.0-0.2); ABSOLUTE EOSINOPHIL COUNT 0.6 /CUMM (0.0-0.7); ABSOLUTE GRANULOCYTE CT 6.9 /CUMM (1.4-6.5); ABSOLUTE LYMPH COUNT 1.8 /CUMM (1.2-3.4); ABSOLUTE MONOCYTE COUNT 0.7 /CUMM (0.10-0.60); BASOPHIL % 0.6 % (0.0-2.0); EOSINOPHIL % 5.7 % (0-5); GRANULOCYTE % 69.4 % (42.2-75.2); HEMATOCRIT 37.3 % (42-52); MEAN CORPUSCULAR HGB 29.1 PG (27.0-31.0); MEAN CORPUSCULAR HGB CONC 32.8 G/DL (33.0-37.0); MEAN CORPUSCULAR VOLUME 88.6 FL (80.0-94.0); MEAN PLATELET VOLUME 7.1 FL (7.4-10.4); PLATELET COUNT 308 /CUMM (130-400); RBC DISTRIBUTION WIDTH 17.5 % (11.5-14.5); RED BLOOD CELL CT 4.21 /CUMM (4.70-6.10)
--- NOTE | 2017-07-09 10:40 | PN- Att Addend ---
Attending Addendum Attending Brief Note Hemodialysis in progress. Vital signs are stable no fever noted no new changes on physical exam and disposition plans continue' Intake & Output 07/09 1600 07/09 0400 07/08 1600 07/08 0400 07/07 1600 07/07 0400 Intake Total 240 240 500 240 Output Total Balance 240 240 500 240 Intake, Oral 240 240 500 240 Patient 208 lb 187 lb 211 lb 218 lb Weight Weight Bed scale Bed scale Bed scale Standing Scale Measurement Method Current Medications Sig/Grace Start time Last Medication Dose Route Stop Time Status Admin Acetaminophen 325 MG Q6-PRN PRN 04/09 2245 AC 06/17 PO 2349 Albuterol Sulfate 2 PUF Q4P PRN 04/09 2300 AC 06/13 INH 2001 Aripiprazole 400 MG Q30D 04/24 0900 AC 06/23 IM 0942 Aspirin Buffered 81 MG 0800 04/10 0800 AC 07/08 PO 0848 Atorvastatin Calcium 40 MG 1700 04/10 1700 AC 07/08 PO 1716 Benzocaine 1 GAVIN 4 TIMES/DAY PRN 06/14 1130 AC TOP Benztropine Mesylate 0.5 MG BID 04/10 1000 AC 07/08 PO 2213 Cinacalcet 60 MG DAILY 05/18 1000 AC 07/08 PO 1158 Epoetin [place] 8,000 UNIT MoWeFr PRN 06/25 1130 AC IV Furosemide 80 MG 0800,2200 04/10 0800 AC 07/08 PO 2213 Gabapentin 300 MG AT BEDTIME 04/10 0215 AC 07/08 PO 2213 Hydralazine HCl 20 MG TID 05/08 1100 AC 07/08 PO 2213 Labetalol HCl 100 MG BID 04/10 1000 AC 07/08 PO 2214 Lactobacillus 1 CAP BID 05/24 2200 AC 07/08 Acidophilus PO 2213 Lamotrigine 150 MG DAILY 04/22 1000 AC 07/08 PO 1200 Lidocaine 15 ML TID PRN 06/14 1130 AC 06/14 PO 1414 Multivitamins 1 TAB 1000 04/10 1000 AC 07/08 PO 1159 Omeprazole 40 MG DAILY AC 04/20 1325 AC 07/09 PO 0718 Oxcarbazepine 600 MG BID 04/10 1000 AC 07/08 PO 2212 Propranolol HCl 10 MG BID 04/10 1000 AC 07/08 PO 2214 Quetiapine Fumarate 400 MG AT BEDTIME 04/10 0215 AC 07/08 PO 2213 Sevelamer Carbonate 2,400 MG TIDAC 04/10 0800 AC 07/08 PO 1717 Sodium Polystyrene 60 ML QMON 05/21 0700 AC 07/09 Sulfonate PO 0504 Sodium Polystyrene 60 ML QSUN 05/20 0700 AC 07/08 Sulfonate PO 0532 Tiotropium [place] 1 PUF DAILY 04/10 1000 AC 07/08 INH 1158 Laboratory Tests 07/09/17 0810: Anion Gap 22 H, Estimated GFR 5 L, BUN/Creatinine Ratio 8.8, Calcium 8.0 L, CBC w Diff NO MAN DIFF REQ, RBC 4.21 L, MCV 88.6, MCH 29.1, MCHC 32.8 L, RDW 17.5 H, MPV 7.1 L, Gran % 69.4, Lymphocytes % 17.8 L, Monocytes % 6.5, Eosinophils % 5.7 H, Basophils % 0.6, Absolute Granulocytes 6.9 H, Absolute Lymphocytes 1.8, Absolute Monocytes 0.7 H, Absolute Eosinophils 0.6, Absolute Basophils 0.1, Hep Bs Antibody NONREACTIVE 07/09/17 0652: Hep Bs Antibody Cancelled 07/06/17 1410: Anion Gap 17 H, Estimated GFR 5 L, BUN/Creatinine Ratio 7.1, Calcium 8.6, CBC w Diff NO MAN DIFF REQ, RBC 4.52 L, MCV 89.3, MCH 28.6, MCHC 32.0 L, RDW 17.9 H, MPV 6.9 L, Gran % 61.4, Lymphocytes % 22.5, Monocytes % 9.2, Eosinophils % 6.0 H, Basophils % 0.9, Absolute Granulocytes 5.6, Absolute Lymphocytes 2.0, Absolute Monocytes 0.8 H, Absolute Eosinophils 0.5, Absolute Basophils 0.1, Hep Bs Antigen NONREACTIVE, Hep Bs Antibody NONREACTIVE
--- NOTE | 2017-07-09 11:31 | PN- Nephrology ---
Assessment/Plan Nephrology Assessment: ESRD - Routine HD today. Dietary indiscretion has led to hyperkalemia and large intradialytic weight gains. Anemia - Hg above goal - Hold MICHAEL and restart at 6000U TIW once Hg <11. Hyperkalemia - Has been on 1K bath. Needs to restrict potassium. K 4.3 - will switch to 2K for today. Suggestion: -HD today - 5.5L UF as tolerated -2K bath today -2g salt restriction -Hold Epogen - restart at 6000U TIW once Hg<11 -Dispo planning Please call [phone] with ?'s Subjective Subjective: Pt seen and examined on HD Weight up - admits to dietary/fluid indiscretion No SOB K 4.3 Objective Vital Signs and I&Os Vital Signs Date Time Temp Pulse Resp B/P B/P Pulse O2 O2 Flow FiO2 Mean Ox Delivery Rate 07/10 627 98.5 86 18 141/84 97 Room Air 07/08 2214 85 142/80 07/08 2214 85 142/80 07/08 2213 85 142/80 07/08 2204 97.9 85 20 142/80 96 Room Air 07/08 1721 92 118/90 07/08 1435 98.1 80 20 120/60 96 Room Air 07/08 1159 88 130/90 07/08 1159 88 130/90 07/08 1158 88 130/90 Intake & Output 07/09 1600 07/09 0400 07/08 1600 07/08 0400 07/07 1600 07/07 0400 Intake Total 240 240 500 240 Output Total Balance 240 240 500 240 Intake, Oral 240 240 500 240 Patient 208 lb 187 lb 211 lb 218 lb Weight Weight Bed scale Bed scale Bed scale Standing Scale Measurement Method Physical Exam: Gen - NAD HEENT - supple CV - RRR, no m/r/g Chest - clear anteriorly, no w/r/r Abd - soft, NTND Ext - warm, no edema, LLA AVF +bruit Neuro - AOX3, grossly nonfocal Current Medications: Current Medications Sig/Grace Start time Last Medication Dose Route Stop Time Status Admin Acetaminophen 325 MG Q6-PRN PRN 04/09 2245 AC 06/17 PO 2349 Albuterol Sulfate 2 PUF Q4P PRN 04/09 2300 AC 06/13 INH 2001 Aripiprazole 400 MG Q30D 04/24 0900 AC 06/23 IM 0942 Aspirin Buffered 81 MG 0800 04/10 0800 AC 07/08 PO 0848 Atorvastatin Calcium 40 MG 1700 04/10 1700 AC 07/08 PO 1716 Benzocaine 1 GAVIN 4 TIMES/DAY PRN 06/14 1130 AC TOP Benztropine Mesylate 0.5 MG BID 04/10 1000 AC 07/08 PO 2213 Cinacalcet 60 MG DAILY 05/18 1000 AC 07/08 PO 1158 Epoetin [place] 8,000 UNIT MoWeFr PRN 06/25 1130 AC IV Furosemide 80 MG 0800,0 04/10 0800 AC 07/08 PO 2213 Gabapentin 300 MG AT BEDTIME 04/10 0215 AC 07/08 PO 2213 Hydralazine HCl 20 MG TID 05/08 1100 AC 07/08 PO 2213 Labetalol HCl 100 MG BID 04/10 1000 AC 07/08 PO 2214 Lactobacillus 1 CAP BID 05/24 2200 AC 07/08 Acidophilus PO 2213 Lamotrigine 150 MG DAILY 04/22 1000 AC 07/08 PO 1200 Lidocaine 15 ML TID PRN 06/14 1130 AC 06/14 PO 1414 Multivitamins 1 TAB 1000 04/10 1000 AC 07/08 PO 1159 Omeprazole 40 MG DAILY AC 04/20 1325 AC 07/09 PO 0718 Oxcarbazepine 600 MG BID 04/10 1000 AC 07/08 PO 2212 Propranolol HCl 10 MG BID 04/10 1000 AC 07/08 PO 2214 Quetiapine Fumarate 400 MG AT BEDTIME 04/10 0215 AC 07/08 PO 2213 Sevelamer Carbonate 2,400 MG TIDAC 04/10 0800 AC 07/08 PO 1717 Sodium Polystyrene 60 ML QMON 05/21 0700 AC 07/09 Sulfonate PO 0504 Sodium Polystyrene 60 ML QSUN 05/20 0700 AC 07/08 Sulfonate PO 0532 Tiotropium [place] 1 PUF DAILY 04/10 1000 AC 07/08 INH 1158 Results Pertinent Lab Results: Laboratory Tests 07/09 07/09 0810 0652 Chemistry Sodium (137 - 145 mmol/L) 134 L Potassium (3.5 - 5.1 mmol/L) 4.3 Chloride (98 - 107 mmol/L) 91 L Carbon Dioxide (22 - 30 mmol/L) 21 L Anion Gap (5 - 16) 22 H BUN (9 - 20 mg/dL) 90 H Creatinine (0.7 - 1.2 mg/dL) 10.2 *H Estimated GFR (>60 ml/min) 5 L BUN/Creatinine Ratio (7 - 25 %) 8.8 Calcium (8.4 - 10.2 mg/dL) 8.0 L Hematology CBC w Diff NO MAN DIFF REQ WBC (4.8 - 10.8 /CUMM) 10.0 RBC (4.70 - 6.10 /CUMM) 4.21 L Hgb (14.0 - 18.0 G/DL) 12.2 L Hct (42 - 52 %) 37.3 L MCV (80.0 - 94.0 FL) 88.6 MCH (27.0 - 31.0 PG) 29.1 MCHC (33.0 - 37.0 G/DL) 32.8 L RDW (11.5 - 14.5 %) 17.5 H Plt Count (130 - 400 /CUMM) 308 MPV (7.4 - 10.4 FL) 7.1 L Gran % (42.2 - 75.2 %) 69.4 Lymphocytes % (20.5 - 51.1 %) 17.8 L Monocytes % (1.7 - 9.3 %) 6.5 Eosinophils % (0 - 5 %) 5.7 H Basophils % (0.0 - 2.0 %) 0.6 Absolute Granulocytes (1.4 - 6.5 /CUMM) 6.9 H Absolute Lymphocytes (1.2 - 3.4 /CUMM) 1.8 Absolute Monocytes (0.10 - 0.60 /CUMM) 0.7 H Absolute Eosinophils (0.0 - 0.7 /CUMM) 0.6 Absolute Basophils (0.0 - 0.2 /CUMM) 0.1 Serology Hep Bs Antibody (NONREACTIVE) NONREACTIVE Cancelled 07/06 1410 Chemistry Sodium (137 - 145 mmol/L) 135 L Potassium (3.5 - 5.1 mmol/L) 6.6 *H Chloride (98 - 107 mmol/L) 97 L Carbon Dioxide (22 - 30 mmol/L) 21 L Anion Gap (5 - 16) 17 H BUN (9 - 20 mg/dL) 74 H Creatinine (0.7 - 1.2 mg/dL) 10.4 *H Estimated GFR (>60 ml/min) 5 L BUN/Creatinine Ratio (7 - 25 %) 7.1 Calcium (8.4 - 10.2 mg/dL) 8.6 Hematology CBC w Diff NO MAN DIFF REQ WBC (4.8 - 10.8 /CUMM) 9.1 RBC (4.70 - 6.10 /CUMM) 4.52 L Hgb (14.0 - 18.0 G/DL) 12.9 L Hct (42 - 52 %) 40.4 L MCV (80.0 - 94.0 FL) 89.3 MCH (27.0 - 31.0 PG) 28.6 MCHC (33.0 - 37.0 G/DL) 32.0 L RDW (11.5 - 14.5 %) 17.9 H Plt Count (130 - 400 /CUMM) 353 MPV (7.4 - 10.4 FL) 6.9 L Gran % (42.2 - 75.2 %) 61.4 Lymphocytes % (20.5 - 51.1 %) 22.5 Monocytes % (1.7 - 9.3 %) 9.2 Eosinophils % (0 - 5 %) 6.0 H Basophils % (0.0 - 2.0 %) 0.9 Absolute Granulocytes (1.4 - 6.5 /CUMM) 5.6 Absolute Lymphocytes (1.2 - 3.4 /CUMM) 2.0 Absolute Monocytes (0.10 - 0.60 /CUMM) 0.8 H Absolute Eosinophils (0.0 - 0.7 /CUMM) 0.5 Absolute Basophils (0.0 - 0.2 /CUMM) 0.1 Serology Hep Bs Antigen (NONREACTIVE) NONREACTIVE Hep Bs Antibody (NONREACTIVE) NONREACTIVE Imaging/Other Studies: None new
[2017-07-09 15:34] VITALS: BP 110/68
[2017-07-09 22:22] VITALS: BP 130/80
[2017-07-10 06:57] VITALS: BP 128/76
--- NOTE | 2017-07-10 11:41 | PN- Att Addend ---
Attending Addendum Attending Brief Note No new complaints comfortable in bed vital signs are stable no new changes on physical continue hemodialysis treatment times a week, continue disposition plans. Intake & Output 07/10 1600 07/10 0400 07/09 1600 07/09 0400 07/08 1600 07/08 0400 Intake Total 240 240 240 240 240 Output Total Balance 240 240 240 240 240 Intake, Oral 240 240 240 240 240 Patient 218 lb 208 lb 187 lb Weight Weight Bed scale Bed scale Bed scale Measurement Method Current Medications Sig/Grace Start time Last Medication Dose Route Stop Time Status Admin Acetaminophen 325 MG Q6-PRN PRN 04/09 2245 AC 06/17 PO 2349 Albuterol Sulfate 2 PUF Q4P PRN 04/09 2300 AC 06/13 INH 2001 Aripiprazole 400 MG Q30D 04/24 0900 AC 06/23 IM 0942 Aspirin Buffered 81 MG 0800 04/10 0800 AC 07/10 PO 0745 Atorvastatin Calcium 40 MG 1700 04/10 1700 AC 07/09 PO 1656 Benzocaine 1 GAVIN 4 TIMES/DAY PRN 06/14 1130 AC TOP Benztropine Mesylate 0.5 MG BID 04/10 1000 AC 07/10 PO 0900 Cinacalcet 60 MG DAILY 05/18 1000 AC 07/10 PO 0900 Epoetin [place] 8,000 UNIT MoWeFr PRN 06/25 1130 AC IV Furosemide 80 MG 0800,2200 04/10 0800 AC 07/10 PO 0745 Gabapentin 300 MG AT BEDTIME 04/10 0215 AC 07/09 PO 2215 Hydralazine HCl 20 MG TID 05/08 1100 AC 07/10 PO 0900 Labetalol HCl 100 MG BID 04/10 1000 AC 07/10 PO 0859 Lactobacillus 1 CAP BID 05/24 2200 AC 07/10 Acidophilus PO 0900 Lamotrigine 150 MG DAILY 04/22 1000 AC 07/10 PO 0900 Lidocaine 15 ML TID PRN 06/14 1130 AC 06/14 PO 1414 Multivitamins 1 TAB 1000 04/10 1000 AC 07/10 PO 0900 Omeprazole 40 MG DAILY AC 04/20 1325 AC 07/10 PO 0544 Oxcarbazepine 600 MG BID 04/10 1000 AC 07/10 PO 0859 Patient Medication 1 ED ONE ONE 07/09 1430 DC 07/09 Teaching ED 03/12 1431 1654 Propranolol HCl 10 MG BID 04/10 1000 AC 07/10 PO 0900 Quetiapine Fumarate 400 MG AT BEDTIME 04/10 0215 AC 07/09 PO 2214 Sevelamer Carbonate 2,400 MG TIDAC 04/10 0800 AC 07/10 PO 0745 Sodium Polystyrene 60 ML QMON 05/21 0700 AC 07/09 Sulfonate PO 0504 Sodium Polystyrene 60 ML QSUN 05/20 0700 AC 07/08 Sulfonate PO 0532 Tiotropium [place] 1 PUF DAILY 04/10 1000 AC 07/10 INH 0900 Laboratory Tests 07/09/17 0810: Anion Gap 22 H, Estimated GFR 5 L, BUN/Creatinine Ratio 8.8, Calcium 8.0 L, CBC w Diff NO MAN DIFF REQ, RBC 4.21 L, MCV 88.6, MCH 29.1, MCHC 32.8 L, RDW 17.5 H, MPV 7.1 L, Gran % 69.4, Lymphocytes % 17.8 L, Monocytes % 6.5, Eosinophils % 5.7 H, Basophils % 0.6, Absolute Granulocytes 6.9 H, Absolute Lymphocytes 1.8, Absolute Monocytes 0.7 H, Absolute Eosinophils 0.6, Absolute Basophils 0.1, Hep Bs Antibody NONREACTIVE 07/09/17 0652: Hep Bs Antibody Cancelled Vital Signs Date Time Temp Pulse Resp B/P B/P Pulse O2 O2 Flow FiO2 Mean Ox Delivery Rate 07/10 0939 Room Air Room Air 07/10 0900 78 120/66 07/10 0900 78 120/66 07/10 0859 78 120/66 07/10 0657 97.9 78 18 128/76 97 Room Air 07/09 2222 98.0 90 18 130/80 96 07/09 2215 90 130/80 07/09 1534 97.2 102 19 110/68 97 Room Air
[2017-07-10 15:27] VITALS: BP 122/75
[2017-07-10 21:12] VITALS: BP 120/79
[2017-07-11 05:49] VITALS: BP 113/70
[2017-07-11 08:59] LABS: ABSOLUTE BASOPHIL COUNT 0.1 /CUMM (0.0-0.2); ABSOLUTE EOSINOPHIL COUNT 0.6 /CUMM (0.0-0.7); ABSOLUTE GRANULOCYTE CT 4.8 /CUMM (1.4-6.5); ABSOLUTE LYMPH COUNT 1.8 /CUMM (1.2-3.4); ABSOLUTE MONOCYTE COUNT 0.7 /CUMM (0.10-0.60); BASOPHIL % 0.9 % (0.0-2.0); GRANULOCYTE % 60.7 % (42.2-75.2); HEMATOCRIT 40.1 % (42-52); MEAN CORPUSCULAR HGB 29.3 PG (27.0-31.0); MEAN CORPUSCULAR VOLUME 88.9 FL (80.0-94.0); MEAN PLATELET VOLUME 7.5 FL (7.4-10.4); PLATELET COUNT 315 /CUMM (130-400); RBC DISTRIBUTION WIDTH 17.6 % (11.5-14.5); RED BLOOD CELL CT 4.51 /CUMM (4.70-6.10); WHITE BLOOD CELL COUNT 7.9 /CUMM (4.8-10.8)
[2017-07-11 09:22] LABS: EOSINOPHIL % 7.1 % (0-5)
--- NOTE | 2017-07-11 09:45 | PN- Nephrology ---
Assessment/Plan Nephrology Assessment: ESRD - Routine HD today. Dietary indiscretion has led to hyperkalemia and large intradialytic weight gains. Anemia - Hg above goal - Hold MICHAEL and restart at 4000U TIW once Hg <11. Hyperkalemia - K 5.0. 2K was used on Sunday - ok to use a 2K. Hypotension - Not clear why BP on the lower end today. Did not get BP meds prior to dialysis. Significantly above EDW. No clear s/s of infection - appears well. Will still try and remove fluid as tolerated by BP. Suggestion: -HD today - approx 3L UF as tolerated -Closely monitor BP -2K bath today -2g salt restriction -Hold Epogen - restart at 4000U TIW once Hg<11 -Dispo planning Please call [phone] with ?'s Subjective Subjective: Pt seen and examined on dialysis No complaints SBP <100mmHg Objective Vital Signs and I&Os Vital Signs Date Time Temp Pulse Resp B/P B/P Pulse O2 O2 Flow FiO2 Mean Ox Delivery Rate 07/11 0549 98.4 67 22 113/70 98 Room Air 07/10 2204 82 120/74 07/10 2204 79 120/74 07/10 2204 82 120/74 07/10 2112 97.3 82 18 120/79 97 07/10 1527 97.9 82 18 122/75 98 Room Air Intake & Output 07/11 1600 07/11 0400 07/10 1600 07/10 0400 07/09 1600 07/09 0400 Intake Total 240 480 640 240 240 Output Total Balance 240 480 640 240 240 Intake, Oral 240 480 640 240 240 Number 0 Bowel Movements Patient 208 lb 218 lb 208 lb Weight Weight Bed scale Bed scale Measurement Method Physical Exam: Gen - NAD HEENT - supple CV - RRR, no m/r/g Chest - clear anteriorly, no w/r/r Abd - soft, NTND Ext - warm, no edema, LLA AVF +bruit Neuro - AOX3, grossly nonfocal Current Medications: Current Medications Sig/Grace Start time Last Medication Dose Route Stop Time Status Admin Acetaminophen 325 MG Q6-PRN PRN 04/09 2245 AC 06/17 PO 2349 Albuterol Sulfate 2 PUF Q4P PRN 04/09 2300 AC 06/13 INH 2001 Aripiprazole 400 MG Q30D 04/24 0900 AC 06/23 IM 0942 Aspirin Buffered 81 MG 0800 04/10 0800 AC 07/11 PO 0731 Atorvastatin Calcium 40 MG 1700 04/10 1700 AC 07/10 PO 1710 Benzocaine 1 GAVIN 4 TIMES/DAY PRN 06/14 1130 AC TOP Benztropine Mesylate 0.5 MG BID 04/10 1000 AC 07/10 PO 2205 Cinacalcet 60 MG DAILY 05/18 1000 AC 07/10 PO 0900 Epoetin [place] 8,000 UNIT MoWeFr PRN 06/25 1130 AC IV Furosemide 80 MG 0800,0 04/10 0800 AC 07/11 PO 0731 Gabapentin 300 MG AT BEDTIME 04/10 0215 AC 07/10 PO 2205 Hydralazine HCl 20 MG TID 05/08 1100 AC 07/10 PO 2204 Labetalol HCl 100 MG BID 04/10 1000 AC 07/10 PO 2205 Lactobacillus 1 CAP BID 05/24 2200 AC 07/10 Acidophilus PO 2205 Lamotrigine 150 MG DAILY 04/22 1000 AC 07/10 PO 0900 Lidocaine 15 ML TID PRN 06/14 1130 AC 06/14 PO 1414 Multivitamins 1 TAB 1000 04/10 1000 AC 07/10 PO 0900 Omeprazole 40 MG DAILY AC 04/20 1325 AC 07/11 PO 0616 Oxcarbazepine 600 MG BID 04/10 1000 AC 07/10 PO 2205 Propranolol HCl 10 MG BID 04/10 1000 AC 07/10 PO 2204 Quetiapine Fumarate 400 MG AT BEDTIME 04/10 0215 AC 07/10 PO 2205 Sevelamer Carbonate 2,400 MG TIDAC 04/10 0800 AC 07/11 PO 0732 Sodium Polystyrene 60 ML QMON 05/21 0700 AC 07/09 Sulfonate PO 0504 Sodium Polystyrene 60 ML QSUN 05/20 0700 AC 07/08 Sulfonate PO 0532 Tiotropium [place] 1 PUF DAILY 04/10 1000 AC 07/10 INH 0900 Results Pertinent Lab Results: Laboratory Tests 07/11 07/11 0815 0659 Chemistry Sodium (137 - 145 mmol/L) 136 L Potassium (3.5 - 5.1 mmol/L) 5.0 Chloride (98 - 107 mmol/L) 93 L Carbon Dioxide (22 - 30 mmol/L) 21 L Anion Gap (5 - 16) 22 H BUN (9 - 20 mg/dL) 85 H Creatinine (0.7 - 1.2 mg/dL) 10.3 *H Estimated GFR (>60 ml/min) 5 L BUN/Creatinine Ratio (7 - 25 %) 8.2 Calcium (8.4 - 10.2 mg/dL) 8.2 L Phosphorus (2.5 - 4.5 mg/dL) 5.3 H Magnesium (1.6 - 2.3 mg/dL) 2.3 Albumin (3.5 - 5.0 g/dL) 4.3 Hematology CBC w Diff NO MAN DIFF REQ WBC (4.8 - 10.8 /CUMM) 7.9 RBC (4.70 - 6.10 /CUMM) 4.51 L Hgb (14.0 - 18.0 G/DL) 13.2 L Hct (42 - 52 %) 40.1 L MCV (80.0 - 94.0 FL) 88.9 MCH (27.0 - 31.0 PG) 29.3 MCHC (33.0 - 37.0 G/DL) 33.0 RDW (11.5 - 14.5 %) 17.6 H Plt Count (130 - 400 /CUMM) 315 MPV (7.4 - 10.4 FL) 7.5 Gran % (42.2 - 75.2 %) 60.7 Lymphocytes % (20.5 - 51.1 %) 22.8 Monocytes % (1.7 - 9.3 %) 8.5 Eosinophils % (0 - 5 %) 7.1 H Basophils % (0.0 - 2.0 %) 0.9 Absolute Granulocytes (1.4 - 6.5 /CUMM) 4.8 Absolute Lymphocytes (1.2 - 3.4 /CUMM) 1.8 Absolute Monocytes (0.10 - 0.60 /CUMM) 0.7 H Absolute Eosinophils (0.0 - 0.7 /CUMM) 0.6 Absolute Basophils (0.0 - 0.2 /CUMM) 0.1 07/09 03 0810 0652 Chemistry Sodium (137 - 145 mmol/L) 134 L Potassium (3.5 - 5.1 mmol/L) 4.3 Chloride (98 - 107 mmol/L) 91 L Carbon Dioxide (22 - 30 mmol/L) 21 L Anion Gap (5 - 16) 22 H BUN (9 - 20 mg/dL) 90 H Creatinine (0.7 - 1.2 mg/dL) 10.2 *H Estimated GFR (>60 ml/min) 5 L BUN/Creatinine Ratio (7 - 25 %) 8.8 Calcium (8.4 - 10.2 mg/dL) 8.0 L Hematology CBC w Diff NO MAN DIFF REQ WBC (4.8 - 10.8 /CUMM) 10.0 RBC (4.70 - 6.10 /CUMM) 4.21 L Hgb (14.0 - 18.0 G/DL) 12.2 L Hct (42 - 52 %) 37.3 L MCV (80.0 - 94.0 FL) 88.6 MCH (27.0 - 31.0 PG) 29.1 MCHC (33.0 - 37.0 G/DL) 32.8 L RDW (11.5 - 14.5 %) 17.5 H Plt Count (130 - 400 /CUMM) 308 MPV (7.4 - 10.4 FL) 7.1 L Gran % (42.2 - 75.2 %) 69.4 Lymphocytes % (20.5 - 51.1 %) 17.8 L Monocytes % (1.7 - 9.3 %) 6.5 Eosinophils % (0 - 5 %) 5.7 H Basophils % (0.0 - 2.0 %) 0.6 Absolute Granulocytes (1.4 - 6.5 /CUMM) 6.9 H Absolute Lymphocytes (1.2 - 3.4 /CUMM) 1.8 Absolute Monocytes (0.10 - 0.60 /CUMM) 0.7 H Absolute Eosinophils (0.0 - 0.7 /CUMM) 0.6 Absolute Basophils (0.0 - 0.2 /CUMM) 0.1 Serology Hep Bs Antibody (NONREACTIVE) NONREACTIVE Cancelled Imaging/Other Studies: None new
--- NOTE | 2017-07-11 09:54 | PN- Att Addend ---
Attending Addendum Attending Brief Note Hemodialysis in progress, blood pressure little low at this time no other changes on physical. Continue present treatment and continuing disposition plans. Intake & Output 07/11 1600 07/11 0400 07/10 1600 07/10 0400 07/09 1600 07/09 0400 Intake Total 240 480 640 240 240 Output Total Balance 240 480 640 240 240 Intake, Oral 240 480 640 240 240 Number 0 Bowel Movements Patient 208 lb 218 lb 208 lb Weight Weight Bed scale Bed scale Measurement Method Current Medications Sig/Grace Start time Last Medication Dose Route Stop Time Status Admin Acetaminophen 325 MG Q6-PRN PRN 04/09 2245 AC 06/17 PO 2349 Albuterol Sulfate 2 PUF Q4P PRN 04/09 2300 AC 06/13 INH 2001 Aripiprazole 400 MG Q30D 04/24 0900 AC 06/23 IM 0942 Aspirin Buffered 81 MG 0800 04/10 0800 AC 07/11 PO 0731 Atorvastatin Calcium 40 MG 1700 04/10 1700 AC 07/10 PO 1710 Benzocaine 1 GAVIN 4 TIMES/DAY PRN 06/14 1130 AC TOP Benztropine Mesylate 0.5 MG BID 04/10 1000 AC 07/10 PO 2205 Cinacalcet 60 MG DAILY 05/18 1000 AC 07/10 PO 0900 Epoetin [place] 8,000 UNIT MoWeFr PRN 06/25 1130 AC IV Furosemide 80 MG 0800,2200 04/10 0800 AC 07/11 PO 0731 Gabapentin 300 MG AT BEDTIME 04/10 0215 AC 07/10 PO 2205 Hydralazine HCl 20 MG TID 05/08 1100 AC 07/10 PO 2204 Labetalol HCl 100 MG BID 04/10 1000 AC 07/10 PO 2205 Lactobacillus 1 CAP BID 05/24 2200 AC 07/10 Acidophilus PO 220 Lamotrigine 150 MG DAILY 04/22 1000 AC 07/10 PO 0900 Lidocaine 15 ML TID PRN 06/14 1130 AC 06/14 PO 1414 Multivitamins 1 TAB 1000 04/10 1000 AC 07/10 PO 0900 Omeprazole 40 MG DAILY AC 04/20 1325 AC 07/11 PO 0616 Oxcarbazepine 600 MG BID 04/10 1000 AC 07/10 PO 2205 Propranolol HCl 10 MG BID 04/10 1000 AC 07/10 PO 2204 Quetiapine Fumarate 400 MG AT BEDTIME 04/10 0215 AC 07/10 PO 2205 Sevelamer Carbonate 2,400 MG TIDAC 04/10 0800 AC 07/11 PO 0732 Sodium Polystyrene 60 ML QMON 05/21 0700 AC 07/09 Sulfonate PO 0504 Sodium Polystyrene 60 ML QSUN 05/20 0700 AC 07/08 Sulfonate PO 0532 Tiotropium [place] 1 PUF DAILY 04/10 1000 AC 07/10 INH 0900 Laboratory Tests 07/11/17 0815: Anion Gap 22 H, Estimated GFR 5 L, BUN/Creatinine Ratio 8.2, Calcium 8.2 L, Phosphorus 5.3 H, Magnesium 2.3, Albumin 4.3 07/11/17 0659: CBC w Diff NO MAN DIFF REQ, RBC 4.51 L, MCV 88.9, MCH 29.3, MCHC 33.0, RDW 17.6 H, MPV 7.5, Gran % 60.7, Lymphocytes % 22.8, Monocytes % 8.5, Eosinophils % 7.1 H, Basophils % 0.9, Absolute Granulocytes 4.8, Absolute Lymphocytes 1.8, Absolute Monocytes 0.7 H, Absolute Eosinophils 0.6, Absolute Basophils 0.1 07/09/17 0810: Anion Gap 22 H, Estimated GFR 5 L, BUN/Creatinine Ratio 8.8, Calcium 8.0 L, CBC w Diff NO MAN DIFF REQ, RBC 4.21 L, MCV 88.6, MCH 29.1, MCHC 32.8 L, RDW 17.5 H, MPV 7.1 L, Gran % 69.4, Lymphocytes % 17.8 L, Monocytes % 6.5, Eosinophils % 5.7 H, Basophils % 0.6, Absolute Granulocytes 6.9 H, Absolute Lymphocytes 1.8, Absolute Monocytes 0.7 H, Absolute Eosinophils 0.6, Absolute Basophils 0.1, Hep Bs Antibody NONREACTIVE 07/09/17 0652: Hep Bs Antibody Cancelled Vital Signs Date Time Temp Pulse Resp B/P B/P Pulse O2 O2 Flow FiO2 Mean Ox Delivery Rate 07/11 0549 98.4 67 22 113/70 98 Room Air 07/10 2204 82 120/74 07/11 2203 79 120/74 07/11 2203 82 120/74 07/10 2112 97.3 82 18 120/79 97 07/10 1527 97.9 82 18 122/75 98 Room Air
[2017-07-11 14:57] VITALS: BP 91/60
[2017-07-11 22:49] VITALS: BP 104/65
[2017-07-12 06:27] VITALS: BP 104/69
--- NOTE | 2017-07-12 11:39 | PN- Att Addend ---
Attending Addendum Attending Brief Note Yesterday during dialysis the blood pressure was on the low side so it was later on today p.m. medications were on hold area this morning his blood pressure was fine and the medications were given. No new changes on physical. Continue present treatment disposition plans and hepatitis panel was ordered in anticipation of arranging for outpatient hemodialysis. Intake & Output 07/12 1600 07/12 0400 07/11 1600 07/11 0400 07/10 1600 07/10 0400 Intake Total 240 480 960 480 640 240 Output Total Balance 240 480 960 480 640 240 Intake, Oral 240 480 960 480 640 240 Number 0 Bowel Movements Patient 218 lb 208 lb 218 lb Weight Weight Bed scale Bed scale Measurement Method Current Medications Sig/Grace Start time Last Medication Dose Route Stop Time Status Admin Acetaminophen 325 MG Q6-PRN PRN 04/09 2245 AC 06/17 PO 2349 Albuterol Sulfate 2 PUF Q4P PRN 04/09 2300 AC 06/13 INH 2001 Aripiprazole 400 MG Q30D 04/24 0900 AC 06/23 IM 0942 Aspirin Buffered 81 MG 0800 04/10 0800 AC 07/12 PO 0805 Atorvastatin Calcium 40 MG 1700 04/10 1700 AC 07/11 PO 1704 Benzocaine 1 GAVIN 4 TIMES/DAY PRN 06/14 1130 AC TOP Benztropine Mesylate 0.5 MG BID 04/10 1000 AC 07/12 PO 0950 Cinacalcet 60 MG DAILY 05/18 1000 AC 07/12 PO 0950 Epoetin [place] 8,000 UNIT MoWeFr PRN 06/25 1130 AC IV Furosemide 80 MG 0800,2200 04/10 0800 AC 07/12 PO 0805 Gabapentin 300 MG AT BEDTIME 04/10 0215 AC 07/11 PO 2118 Hydralazine HCl 20 MG TID 05/08 1100 AC 07/12 PO 0951 Labetalol HCl 100 MG BID 04/10 1000 AC 07/12 PO 0951 Lactobacillus 1 CAP BID 05/24 2200 AC 07/12 Acidophilus PO 0950 Lamotrigine 150 MG DAILY 04/22 1000 AC 07/12 PO 0950 Lidocaine 15 ML TID PRN 06/14 1130 AC 06/14 PO 1414 Multivitamins 1 TAB 1000 04/10 1000 AC 07/12 PO 0950 Omeprazole 40 MG DAILY AC 12/22 1325 AC 07/12 PO 0636 Oxcarbazepine 600 MG BID 04/10 1000 AC 07/12 PO 0950 Propranolol HCl 10 MG BID 04/10 1000 AC 07/12 PO 0951 Quetiapine Fumarate 400 MG AT BEDTIME 04/10 0215 AC 07/11 PO 2118 Sevelamer Carbonate 2,400 MG TIDAC 04/10 0800 AC 07/12 PO 0805 Sodium Polystyrene 60 ML QMON 05/21 0700 AC 07/09 Sulfonate PO 0504 Sodium Polystyrene 60 ML QSUN 05/20 0700 AC 07/08 Sulfonate PO 0532 Tiotropium [place] 1 PUF DAILY 04/10 1000 AC 07/12 INH 0950 Laboratory Tests 07/11/17 1009: BUN Cancelled 07/11/17 0815: Anion Gap 22 H, Estimated GFR 5 L, BUN/Creatinine Ratio 8.2, Calcium 8.2 L, Phosphorus 5.3 H, Magnesium 2.3, Albumin 4.3 07/11/17 0659: CBC w Diff NO MAN DIFF REQ, RBC 4.51 L, MCV 88.9, MCH 29.3, MCHC 33.0, RDW 17.6 H, MPV 7.5, Gran % 60.7, Lymphocytes % 22.8, Monocytes % 8.5, Eosinophils % 7.1 H, Basophils % 0.9, Absolute Granulocytes 4.8, Absolute Lymphocytes 1.8, Absolute Monocytes 0.7 H, Absolute Eosinophils 0.6, Absolute Basophils 0.1 Vital Signs Date Time Temp Pulse Resp B/P B/P Pulse O2 O2 Flow FiO2 Mean Ox Delivery Rate 07/12 0851 89 118/76 07/12 0951 89 118/76 07/12 0951 89 118/76 07/12 0627 97.9 85 18 104/69 100 Room Air 07/11 2249 98.0 96 18 104/65 100 Room Air 07/11 2144 96 104/65 07/11 2143 96 104/65 07/11 2143 96 104/65 07/11 1704 90 94/62 07/11 1457 98.1 99 16 91/60 96 Room Air 07/11 1229 90 118/82 07/11 1228 90 118/82 07/11 1228 90 118/82
--- NOTE | 2017-07-12 12:08 | PN- Nephrology ---
Assessment/Plan Nephrology Assessment: ESRD - No HD need today. Anemia - Hg above goal - Hold MICHAEL and restart at 4000U TIW once Hg <11. Hyperkalemia - Need to closely monitor and need for 1K vs 2K dialysis bath. Hypotension - Can likely go down on anti-hypertensives including hydralazine. Suggestion: -HD tomorrow -d/c Hydralazine -2g salt restriction -Hold Epogen - restart at 4000U TIW once Hg<11 -Dispo planning Please call [phone] with ?'s Subjective Subjective: SBP 100's-110's Pt without complaints Objective Vital Signs and I&Os Vital Signs Date Time Temp Pulse Resp B/P B/P Pulse O2 O2 Flow FiO2 Mean Ox Delivery Rate 07/12 0951 89 118/76 07/12 0951 89 118/76 07/12 0951 89 118/76 07/12 0627 97.9 85 18 104/69 100 Room Air 07/11 2249 98.0 96 18 104/65 100 Room Air 07/11 2144 96 104/65 07/11 2143 96 104/65 07/11 2143 96 104/65 07/11 1704 90 94/62 07/11 1457 98.1 99 16 91/60 96 Room Air 07/11 1229 90 118/82 07/11 1228 90 118/82 07/11 1228 90 118/82 Intake & Output 07/12 1600 07/12 0400 07/11 1600 07/11 0400 07/10 1600 07/10 0400 Intake Total 240 480 960 480 640 240 Output Total Balance 240 480 960 480 640 240 Intake, Oral 240 480 960 480 640 240 Number 0 Bowel Movements Patient 218 lb 208 lb 218 lb Weight Weight Bed scale Bed scale Measurement Method Physical Exam: Gen - NAD HEENT - supple CV - RRR, no m/r/g Chest - clear anteriorly, no w/r/r Abd - soft, NTND Ext - warm, no edema, LLA AVF +bruit Neuro - AOX3, grossly nonfocal Current Medications: Current Medications Sig/Grace Start time Last Medication Dose Route Stop Time Status Admin Acetaminophen 325 MG Q6-PRN PRN 04/09 2245 AC 06/17 PO 2349 Albuterol Sulfate 2 PUF Q4P PRN 04/09 2300 AC 06/13 INH 2001 Aripiprazole 400 MG Q30D 12/26 0900 AC 06/23 IM 0942 Aspirin Buffered 81 MG 0800 04/10 0800 AC 07/12 PO 0805 Atorvastatin Calcium 40 MG 1700 04/10 1700 AC 07/11 PO 1704 Benzocaine 1 GAVIN 4 TIMES/DAY PRN 06/14 1130 AC TOP Benztropine Mesylate 0.5 MG BID 04/10 1000 AC 07/12 PO 0950 Cinacalcet 60 MG DAILY 05/18 1000 AC 07/12 PO 0950 Epoetin Florentino 8,000 UNIT MoWeFr PRN 06/25 1130 AC IV Furosemide 80 MG 0800,2200 04/10 0800 AC 07/12 PO 0805 Gabapentin 300 MG AT BEDTIME 04/10 0215 AC 07/11 PO 2118 Hydralazine HCl 20 MG TID 05/08 1100 AC 07/12 PO 0951 Labetalol HCl 100 MG BID 04/10 1000 AC 07/12 PO 0951 Lactobacillus 1 CAP BID 05/24 2200 AC 07/12 Acidophilus PO 0950 Lamotrigine 150 MG DAILY 04/22 1000 AC 07/12 PO 0950 Lidocaine 15 ML TID PRN 06/14 1130 AC 06/14 PO 1414 Multivitamins 1 TAB 1000 04/10 1000 AC 07/12 PO 0950 Omeprazole 40 MG DAILY AC 04/20 1325 AC 07/12 PO 0636 Oxcarbazepine 600 MG BID 04/10 1000 AC 07/12 PO 0950 Propranolol HCl 10 MG BID 04/10 1000 AC 07/12 PO 0951 Quetiapine Fumarate 400 MG AT BEDTIME 04/10 0215 AC 07/11 PO 2118 Sevelamer Carbonate 2,400 MG TIDAC 04/10 0800 AC 07/12 PO 1148 Sodium Polystyrene 60 ML QMON 05/21 0700 AC 07/09 Sulfonate PO 0504 Sodium Polystyrene 60 ML QSUN 05/20 0700 AC 07/08 Sulfonate PO 0532 Tiotropium [place] 1 PUF DAILY 04/10 1000 AC 07/12 INH 0950 Results Pertinent Lab Results: Laboratory Tests 07/11 07/11 07/11 1009 0815 0659 Chemistry Sodium (137 - 145 mmol/L) 136 L Potassium (3.5 - 5.1 mmol/L) 5.0 Chloride (98 - 107 mmol/L) 93 L Carbon Dioxide (22 - 30 mmol/L) 21 L Anion Gap (5 - 16) 22 H BUN (9 - 20 mg/dL) Cancelled 85 H Creatinine (0.7 - 1.2 mg/dL) 10.3 *H Estimated GFR (>60 ml/min) 5 L BUN/Creatinine Ratio (7 - 25 %) 8.2 Calcium (8.4 - 10.2 mg/dL) 8.2 L Phosphorus (2.5 - 4.5 mg/dL) 5.3 H Magnesium (1.6 - 2.3 mg/dL) 2.3 Albumin (3.5 - 5.0 g/dL) 4.3 Hematology CBC w Diff NO MAN DIFF REQ WBC (4.8 - 10.8 /CUMM) 7.9 RBC (4.70 - 6.10 /CUMM) 4.51 L Hgb (14.0 - 18.0 G/DL) 13.2 L Hct (42 - 52 %) 40.1 L MCV (80.0 - 94.0 FL) 88.9 MCH (27.0 - 31.0 PG) 29.3 MCHC (33.0 - 37.0 G/DL) 33.0 RDW (11.5 - 14.5 %) 17.6 H Plt Count (130 - 400 /CUMM) 315 MPV (7.4 - 10.4 FL) 7.5 Gran % (42.2 - 75.2 %) 60.7 Lymphocytes % (20.5 - 51.1 %) 22.8 Monocytes % (1.7 - 9.3 %) 8.5 Eosinophils % (0 - 5 %) 7.1 H Basophils % (0.0 - 2.0 %) 0.9 Absolute Granulocytes (1.4 - 6.5 /CUMM) 4.8 Absolute Lymphocytes (1.2 - 3.4 /CUMM) 1.8 Absolute Monocytes (0.10 - 0.60 /CUMM) 0.7 H Absolute Eosinophils (0.0 - 0.7 /CUMM) 0.6 Absolute Basophils (0.0 - 0.2 /CUMM) 0.1 Imaging/Other Studies: None new
[2017-07-12 13:56] VITALS: BP 125/76
[2017-07-12 23:28] VITALS: BP 124/73
[2017-07-13 07:59] VITALS: BP 144/91
--- NOTE | 2017-07-13 10:54 | PN- Att Addend ---
Attending Addendum Attending Brief Note Resting comfortable in bed, blood pressure stable today, but his morning meds, going to hemodialysis later on this morning. No other changes on physical. Disposition plans continue. Intake & Output 07/13 1600 07/13 0400 07/12 1600 07/12 0400 07/11 1600 07/11 0400 Intake Total 240 720 840 480 960 480 Output Total Balance 240 720 840 480 960 480 Intake, IV 0 0 Intake, Oral 240 720 840 480 960 480 Number 0 0 0 Bowel Movements Patient 207 lb 218 lb 208 lb Weight Weight Bed scale Bed scale Measurement Method Current Medications Sig/Grace Start time Last Medication Dose Route Stop Time Status Admin Acetaminophen 325 MG Q6-PRN PRN 04/09 2245 AC 06/17 PO 2349 Albuterol Sulfate 2 PUF Q4P PRN 04/09 2300 AC 06/13 INH 2001 Aripiprazole 400 MG Q30D 04/24 0900 AC 06/23 IM 0942 Aspirin Buffered 81 MG 0800 04/10 0800 AC 07/12 PO 0805 Atorvastatin Calcium 40 MG 1700 04/10 1700 AC 07/12 PO 1656 Benzocaine 1 GAVIN 4 TIMES/DAY PRN 06/14 1130 AC TOP Benztropine Mesylate 0.5 MG BID 04/10 1000 AC 07/12 PO 2052 Cinacalcet 60 MG DAILY 05/18 1000 AC 07/12 PO 0950 Epoetin [place] 8,000 UNIT MoWeFr PRN 06/25 1130 AC IV Furosemide 80 MG 0800,2200 04/10 0800 AC 07/12 PO 2052 Gabapentin 300 MG AT BEDTIME 04/10 0215 AC 07/12 PO 2053 Hydralazine HCl 20 MG TID 05/08 1100 AC 07/12 PO 2052 Labetalol HCl 100 MG BID 04/10 1000 AC 07/12 PO 2053 Lactobacillus 1 CAP BID 05/24 2200 AC 07/12 Acidophilus PO 2053 Lamotrigine 150 MG DAILY 04/22 1000 AC 07/12 PO 0950 Lidocaine 15 ML TID PRN 06/14 1130 AC 06/14 PO 1414 Multivitamins 1 TAB 1000 04/10 1000 AC 07/12 PO 0950 Omeprazole 40 MG DAILY AC 04/20 1325 AC 07/13 PO 0624 Oxcarbazepine 600 MG BID 04/10 1000 AC 07/12 PO 2053 Propranolol HCl 10 MG BID 04/10 1000 AC 07/12 PO 2052 Quetiapine Fumarate 400 MG AT BEDTIME 04/10 0215 AC 07/12 PO 2053 Sevelamer Carbonate 2,400 MG TIDAC 04/10 0800 AC 07/13 PO 0806 Sodium Polystyrene 60 ML QMON 05/21 0700 AC 07/09 Sulfonate PO 0504 Sodium Polystyrene 60 ML QSUN 05/20 0700 AC 07/08 Sulfonate PO 0532 Tiotropium [place] 1 PUF DAILY 04/10 1000 AC 07/12 INH 0950 Laboratory Tests 07/12/17 1434: Hepatitis A IgM Ab Pending, Hep Bs Antigen Pending, Hep B Core IgM Ab Conf Pending, Hepatitis C Antibody Pending 07/11/17 1009: BUN Cancelled 07/11/17 0815: Anion Gap 22 H, Estimated GFR 5 L, BUN/Creatinine Ratio 8.2, Calcium 8.2 L, Phosphorus 5.3 H, Magnesium 2.3, Albumin 4.3 07/11/17 0659: CBC w Diff NO MAN DIFF REQ, RBC 4.51 L, MCV 88.9, MCH 29.3, MCHC 33.0, RDW 17.6 H, MPV 7.5, Gran % 60.7, Lymphocytes % 22.8, Monocytes % 8.5, Eosinophils % 7.1 H, Basophils % 0.9, Absolute Granulocytes 4.8, Absolute Lymphocytes 1.8, Absolute Monocytes 0.7 H, Absolute Eosinophils 0.6, Absolute Basophils 0.1 Vital Signs Date Time Temp Pulse Resp B/P B/P Pulse O2 O2 Flow FiO2 Mean Ox Delivery Rate 07/13 0759 97.3 81 18 144/91 99 07/12 2328 97.9 86 18 124/73 96 Room Air 07/12 2053 86 163/90 07/12 2052 86 163/90 07/12 2052 86 163/90 07/12 1656 84 126/78 07/12 1356 97.9 83 20 125/76 96 Room Air
--- NOTE | 2017-07-13 12:03 | PN- Nephrology ---
Assessment/Plan Nephrology Assessment: ESRD - No HD need today. Anemia - Hg above goal - Hold MICHAEL and restart at 4000U TIW once Hg <11. Hyperkalemia - Need to closely monitor and need for 1K vs 2K dialysis bath. Hypotension - BP improved today. Suggestion: -HD today - 4-5L UF as tolerated - EDW approx 97kg -2g salt restriction -Hold Epogen - restart at 4000U TIW once Hg<11 -Dispo planning Please call [phone] with ?'s Subjective Subjective: Pt seen and examined on dialysis Seen eating a bagel earlier this AM BP back up Objective Vital Signs and I&Os Vital Signs Date Time Temp Pulse Resp B/P B/P Pulse O2 O2 Flow FiO2 Mean Ox Delivery Rate 07/13 0759 97.3 81 18 144/91 99 07/12 2328 97.9 86 18 124/73 96 Room Air 07/12 2053 86 163/90 07/12 205 86 163/90 07/12 2052 86 163/90 07/12 1656 84 126/78 07/12 1356 97.9 83 20 125/76 96 Room Air Intake & Output 07/13 1600 07/13 0400 07/12 1600 07/12 0400 07/11 1600 07/11 0400 Intake Total 240 720 840 480 960 480 Output Total Balance 240 720 840 480 960 480 Intake, IV 0 0 Intake, Oral 240 720 840 480 960 480 Number 0 0 0 Bowel Movements Patient 207 lb 218 lb 208 lb Weight Weight Bed scale Bed scale Measurement Method Physical Exam: Gen - NAD HEENT - supple CV - RRR, no m/r/g Chest - clear anteriorly, no w/r/r Abd - soft, NTND Ext - warm, no edema, LLA AVF +bruit Neuro - AOX3, grossly nonfocal Current Medications: Current Medications Sig/Grace Start time Last Medication Dose Route Stop Time Status Admin Acetaminophen 325 MG Q6-PRN PRN 04/09 2245 AC 06/17 PO 234 Albuterol Sulfate 2 PUF Q4P PRN 04/09 2300 AC 06/13 INH 2001 Aripiprazole 400 MG Q30D 04/24 0900 AC 06/23 IM 0942 Aspirin Buffered 81 MG 0800 04/10 0800 AC 07/12 PO 08 Atorvastatin Calcium 40 MG 1700 12/12 1700 AC 07/12 PO 1656 Benzocaine 1 GAVIN 4 TIMES/DAY PRN 06/14 1130 AC TOP Benztropine Mesylate 0.5 MG BID 04/10 1000 AC 07/12 PO 2052 Cinacalcet 60 MG DAILY 05/18 1000 AC 07/12 PO 0950 Epoetin [place] 8,000 UNIT MoWeFr PRN 06/25 1130 AC IV Furosemide 80 MG 0800,0 04/10 0800 AC 07/12 PO 2052 Gabapentin 300 MG AT BEDTIME 04/10 0215 AC 07/12 PO 2053 Hydralazine HCl 20 MG TID 05/08 1100 AC 07/12 PO 2052 Labetalol HCl 100 MG BID 04/10 1000 AC 07/12 PO 2053 Lactobacillus 1 CAP BID 05/24 2200 AC 07/12 Acidophilus PO 2053 Lamotrigine 150 MG DAILY 04/22 1000 AC 07/12 PO 0950 Lidocaine 15 ML TID PRN 06/14 1130 AC 06/14 PO 1414 Multivitamins 1 TAB 1000 04/10 1000 AC 07/12 PO 0950 Omeprazole 40 MG DAILY AC 04/20 1325 AC 07/13 PO 0624 Oxcarbazepine 600 MG BID 04/10 1000 AC 07/12 PO 2053 Propranolol HCl 10 MG BID 04/10 1000 AC 07/12 PO 2052 Quetiapine Fumarate 400 MG AT BEDTIME 04/10 0215 AC 07/12 PO 2053 Sevelamer Carbonate 2,400 MG TIDAC 04/10 0800 AC 07/13 PO 0806 Sodium Polystyrene 60 ML QMON 05/21 0700 AC 07/09 Sulfonate PO 0504 Sodium Polystyrene 60 ML QSUN 05/20 0700 AC 07/08 Sulfonate PO 0532 Tiotropium [place] 1 PUF DAILY 04/10 1000 AC 07/12 INH 0950 Results Pertinent Lab Results: Laboratory Tests 07/12 07/11 07/11 1434 1009 0815 Chemistry Sodium (137 - 145 mmol/L) 136 L Potassium (3.5 - 5.1 mmol/L) 5.0 Chloride (98 - 107 mmol/L) 93 L Carbon Dioxide (22 - 30 mmol/L) 21 L Anion Gap (5 - 16) 22 H BUN (9 - 20 mg/dL) Cancelled 85 H Creatinine (0.7 - 1.2 mg/dL) 10.3 *H Estimated GFR (>60 ml/min) 5 L BUN/Creatinine Ratio (7 - 25 %) 8.2 Calcium (8.4 - 10.2 mg/dL) 8.2 L Phosphorus (2.5 - 4.5 mg/dL) 5.3 H Magnesium (1.6 - 2.3 mg/dL) 2.3 Albumin (3.5 - 5.0 g/dL) 4.3 Serology Hepatitis A IgM Ab (NONREACTIVE) NONREACTIVE Hep Bs Antigen (NONREACTIVE) NONREACTIVE Hep B Core IgM Ab Conf (NONREACTIVE) NONREACTIVE Hepatitis C Antibody (NONREACTIVE) NONREACTIVE 07/11 0659 Hematology CBC w Diff NO MAN DIFF REQ WBC (4.8 - 10.8 /CUMM) 7.9 RBC (4.70 - 6.10 /CUMM) 4.51 L Hgb (14.0 - 18.0 G/DL) 13.2 L Hct (42 - 52 %) 40.1 L MCV (80.0 - 94.0 FL) 88.9 MCH (27.0 - 31.0 PG) 29.3 MCHC (33.0 - 37.0 G/DL) 33.0 RDW (11.5 - 14.5 %) 17.6 H Plt Count (130 - 400 /CUMM) 315 MPV (7.4 - 10.4 FL) 7.5 Gran % (42.2 - 75.2 %) 60.7 Lymphocytes % (20.5 - 51.1 %) 22.8 Monocytes % (1.7 - 9.3 %) 8.5 Eosinophils % (0 - 5 %) 7.1 H Basophils % (0.0 - 2.0 %) 0.9 Absolute Granulocytes (1.4 - 6.5 /CUMM) 4.8 Absolute Lymphocytes (1.2 - 3.4 /CUMM) 1.8 Absolute Monocytes (0.10 - 0.60 /CUMM) 0.7 H Absolute Eosinophils (0.0 - 0.7 /CUMM) 0.6 Absolute Basophils (0.0 - 0.2 /CUMM) 0.1 Imaging/Other Studies: None new
[2017-07-13 14:08] LABS: ABSOLUTE BASOPHIL COUNT 0.1 /CUMM (0.0-0.2); ABSOLUTE EOSINOPHIL COUNT 0.6 /CUMM (0.0-0.7); ABSOLUTE GRANULOCYTE CT 5.6 /CUMM (1.4-6.5); ABSOLUTE LYMPH COUNT 1.7 /CUMM (1.2-3.4); ABSOLUTE MONOCYTE COUNT 0.7 /CUMM (0.10-0.60); BASOPHIL % 0.7 % (0.0-2.0); EOSINOPHIL % 7.4 % (0-5); GRANULOCYTE % 64.3 % (42.2-75.2); MEAN CORPUSCULAR HGB CONC 32.6 G/DL (33.0-37.0); MEAN PLATELET VOLUME 7.5 FL (7.4-10.4); PLATELET COUNT 309 /CUMM (130-400); RBC DISTRIBUTION WIDTH 18.2 % (11.5-14.5); RED BLOOD CELL CT 4.27 /CUMM (4.70-6.10); WHITE BLOOD CELL COUNT 8.7 /CUMM (4.8-10.8)
[2017-07-13 16:00] VITALS: BP 123/82
[2017-07-13 22:04] VITALS: BP 132/82
[2017-07-14 07:31] VITALS: BP 105/70
[2017-07-14 07:57] VITALS: BP 110/78
--- NOTE | 2017-07-14 16:14 | PN- Att Addend ---
Attending Addendum Attending Brief Note Patient had been ambulating and vital signs are stable no fever. No new changes on physical potassium was a little high yesterday but it was treated with the hemodialysis. Continue present treatment and hopefully soon will have a disposition plan in place. Current Medications Sig/Grace Start time Last Medication Dose Route Stop Time Status Admin Acetaminophen 325 MG Q6-PRN PRN 04/09 2245 AC 06/17 PO 2349 Albuterol Sulfate 2 PUF Q4P PRN 04/09 2300 AC 06/13 INH 2001 Aripiprazole 400 MG Q30D 04/24 0900 AC 06/23 IM 0942 Aspirin Buffered 81 MG 0800 04/10 0800 AC 07/14 PO 0754 Atorvastatin Calcium 40 MG 1700 04/10 1700 AC 07/14 PO 1610 Benzocaine 1 GAVIN 4 TIMES/DAY PRN 06/14 1130 AC TOP Benztropine Mesylate 0.5 MG BID 04/10 1000 AC 07/14 PO 1047 Cinacalcet 60 MG DAILY 05/18 1000 AC 07/14 PO 1047 Epoetin [place]orent[place] 8,000 UNIT MoWeFr PRN 06/25 1130 AC IV Furosemide 80 MG 0800,0 04/10 0800 AC 07/14 PO 0754 Gabapentin 300 MG AT BEDTIME 04/10 0215 AC 07/13 PO 2209 Hydralazine HCl 20 MG TID 05/08 1100 AC 07/14 PO 1610 Labetalol HCl 100 MG BID 04/10 1000 AC 07/14 PO 1048 Lactobacillus 1 CAP BID 05/24 2200 AC 07/14 Acidophilus PO 1047 Lamotrigine 150 MG DAILY 04/22 1000 AC 07/14 PO 1047 Lidocaine 15 ML TID PRN 06/14 1130 AC 06/14 PO 1414 Multivitamins 1 TAB 1000 04/10 1000 AC 07/14 PO 1047 Omeprazole 40 MG DAILY AC 04/20 1325 AC 07/14 PO 0540 Oxcarbazepine 600 MG BID 04/10 1000 AC 07/14 PO 1048 Propranolol HCl 10 MG BID 04/10 1000 AC 07/14 PO 1047 Quetiapine Fumarate 400 MG AT BEDTIME 04/10 0215 AC 07/13 PO 2208 Sevelamer Carbonate 2,400 MG TIDAC 04/10 0800 AC 07/14 PO 1610 Sodium Polystyrene 60 ML QMON 05/21 0700 AC 07/09 Sulfonate PO 0504 Sodium Polystyrene 60 ML QSUN 05/20 0700 AC 07/08 Sulfonate PO 0532 Tiotropium [place] 1 PUF DAILY 04/10 1000 AC 07/14 INH 1048 Laboratory Tests 07/13/17 1145: Anion Gap 20 H, Estimated GFR 5 L, BUN/Creatinine Ratio 8.9, Calcium 8.3 L, CBC w Diff NO MAN DIFF REQ, RBC 4.27 L, MCV 89.0, MCH 29.0, MCHC 32.6 L, RDW 18.2 H, MPV 7.5, Gran % 64.3, Lymphocytes % 19.9 L, Monocytes % 7.7, Eosinophils % 7.4 H, Basophils % 0.7, Absolute Granulocytes 5.6, Absolute Lymphocytes 1.7, Absolute Monocytes 0.7 H, Absolute Eosinophils 0.6, Absolute Basophils 0.1 07/12/17 1434: Hepatitis A IgM Ab NONREACTIVE, Hep Bs Antigen NONREACTIVE, Hep B Core IgM Ab Conf NONREACTIVE, Hepatitis C Antibody NONREACTIVE Vital Signs Date Time Temp Pulse Resp B/P B/P Pulse O2 O2 Flow FiO2 Mean Ox Delivery Rate 07/14 1610 98.3 80 20 129/79 07/14 1048 84 124/82 07/14 1047 84 124/82 07/14 1047 84 124/82 07/14 0757 80 110/78 07/14 0731 97.4 83 20 105/70 96 07/13 2209 79 132/82 07/13 2208 79 132/82 07/13 2207 79 132/82 07/13 2204 97.5 79 20 132/82 98 Room Air 07/13 1614 97 123/82 07/13 1614 97 123/82
[2017-07-14 22:10] VITALS: BP 119/76
[2017-07-15 07:17] VITALS: BP 119/80
[2017-07-15 14:22] VITALS: BP 163/100
--- NOTE | 2017-07-15 15:06 | PN- Att Addend ---
Attending Addendum Attending Brief Note No new complaints resting comfortably in bed. Vital vital signs are stable, no changes on physical. Hemodialysis continues 3 times a week disposition plans continue. Intake & Output 07/15 1600 07/15 0400 07/14 1600 07/14 0400 07/13 1600 07/13 0400 Intake Total 350 450 850 550 840 720 Output Total Balance 350 450 850 550 840 720 Intake, IV 0 0 Intake, Oral 350 450 850 550 840 720 Number 0 0 Bowel Movements Patient 214 lb 215 lb 206 lb 207 lb Weight Weight Bed scale Bed scale Measurement Method Current Medications Sig/Grace Start time Last Medication Dose Route Stop Time Status Admin Acetaminophen 325 MG Q6-PRN PRN 04/09 2245 AC 06/17 PO 2349 Albuterol Sulfate 2 PUF Q4P PRN 04/09 2300 AC 06/13 INH 2001 Aripiprazole 400 MG Q30D 04/24 0900 AC 06/23 IM 0942 Aspirin Buffered 81 MG 0800 04/10 0800 AC 07/15 PO 0952 Atorvastatin Calcium 40 MG 1700 04/10 1700 AC 07/14 PO 1610 Benzocaine 1 GAVIN 4 TIMES/DAY PRN 06/14 1130 AC TOP Benztropine Mesylate 0.5 MG BID 04/10 1000 AC 07/15 PO 0953 Cinacalcet 60 MG DAILY 05/18 1000 AC 07/15 PO 0953 Epoetin [place] 8,000 UNIT MoWeFr PRN 06/25 1130 AC IV Furosemide 80 MG 0800,2200 04/10 0800 AC 07/15 PO 0953 Gabapentin 300 MG AT BEDTIME 04/10 0215 AC 07/14 PO 2142 Hydralazine HCl 20 MG TID 05/08 1100 AC 07/14 PO 1610 Labetalol HCl 100 MG BID 04/10 1000 AC 07/15 PO 0956 Lactobacillus 1 CAP BID 05/24 2200 AC 07/15 Acidophilus PO 0951 Lamotrigine 150 MG DAILY 04/22 1000 AC 07/15 PO 0956 Lidocaine 15 ML TID PRN 06/14 1130 AC 06/14 PO 1414 Multivitamins 1 TAB 1000 04/10 1000 AC 07/15 PO 0956 Omeprazole 40 MG DAILY AC 04/20 1325 AC 07/15 PO 0553 Oxcarbazepine 600 MG BID 04/10 1000 AC 07/15 PO 0951 Propranolol HCl 10 MG BID 04/10 1000 AC 07/15 PO 0953 Quetiapine Fumarate 400 MG AT BEDTIME 04/10 0215 AC 07/14 PO 2141 Sevelamer Carbonate 2,400 MG TIDAC 04/10 0800 AC 07/15 PO 1411 Sodium Polystyrene 60 ML QMON 05/21 0700 AC 07/09 Sulfonate PO 0504 Sodium Polystyrene 60 ML QSUN 05/20 0700 AC 07/15 Sulfonate PO 0353 Tiotropium [place] 1 PUF DAILY 04/10 1000 AC 07/15 INH 0952 Laboratory Tests 07/13/17 1145: Anion Gap 20 H, Estimated GFR 5 L, BUN/Creatinine Ratio 8.9, Calcium 8.3 L, CBC w Diff NO MAN DIFF REQ, RBC 4.27 L, MCV 89.0, MCH 29.0, MCHC 32.6 L, RDW 18.2 H, MPV 7.5, Gran % 64.3, Lymphocytes % 19.9 L, Monocytes % 7.7, Eosinophils % 7.4 H, Basophils % 0.7, Absolute Granulocytes 5.6, Absolute Lymphocytes 1.7, Absolute Monocytes 0.7 H, Absolute Eosinophils 0.6, Absolute Basophils 0.1 Vital Signs Date Time Temp Pulse Resp B/P B/P Pulse O2 O2 Flow FiO2 Mean Ox Delivery Rate 07/15 1422 97.9 86 20 163/100 95 Room Air 07/15 0717 97.8 76 20 119/80 98 07/14 2210 98.5 79 20 119/76 94 Room Air 07/15 2151 85 110/74 07/14 2152 85 110/74 07/14 215 85 110/74 07/14 1610 98.3 80 20 129/79
[2017-07-16 05:45] VITALS: BP 140/88
--- NOTE | 2017-07-16 10:43 | PN- Att Addend ---
Attending Addendum Attending Brief Note No new complaints, vital signs are stable no fever with no changes on physical. Continue hemodialysis treatment times a week continue disposition plans. Intake & Output 07/16 1600 07/16 0400 07/15 1600 07/15 0400 07/14 1600 07/14 0400 Intake Total 480 240 830 450 850 550 Output Total Balance 480 240 830 450 850 550 Intake, IV 0 0 Intake, Oral 480 240 830 450 850 550 Number 0 0 Bowel Movements Patient 214 lb 214 lb 215 lb 206 lb Weight Weight Bed scale Measurement Method Current Medications Sig/Grace Start time Last Medication Dose Route Stop Time Status Admin Acetaminophen 325 MG Q6-PRN PRN 04/09 2245 AC 06/17 PO 2349 Albuterol Sulfate 2 PUF Q4P PRN 04/09 2300 AC 06/13 INH 2001 Aripiprazole 400 MG Q30D 04/24 0900 AC 06/23 IM 0942 Aspirin Buffered 81 MG 0800 04/10 0800 AC 07/15 PO 0952 Atorvastatin Calcium 40 MG 1700 04/10 1700 AC 07/15 PO 1740 Benzocaine 1 GAVIN 4 TIMES/DAY PRN 06/14 1130 AC TOP Benztropine Mesylate 0.5 MG BID 04/10 1000 AC 07/15 PO 211 Cinacalcet 60 MG DAILY 05/18 1000 AC 07/15 PO 0953 Epoetin [place] 8,000 UNIT MoWeFr PRN 06/25 1130 AC IV Furosemide 80 MG 0800,2200 04/10 0800 AC 07/15 PO 211 Gabapentin 300 MG AT BEDTIME 04/10 0215 AC 07/15 PO 211 Hydralazine HCl 20 MG TID 05/08 1100 AC 07/15 PO 2113 Labetalol HCl 100 MG BID 04/10 1000 AC 07/15 PO 2114 Lactobacillus 1 CAP BID 05/24 2200 AC 07/15 Acidophilus PO 211 Lamotrigine 150 MG DAILY 04/22 1000 AC 07/15 PO 0956 Lidocaine 15 ML TID PRN 06/14 1130 AC 06/14 PO 1414 Multivitamins 1 TAB 1000 04/10 1000 AC 07/15 PO 0956 Omeprazole 40 MG DAILY AC 04/20 1325 AC 07/16 PO 0542 Oxcarbazepine 600 MG BID 04/10 1000 AC 07/15 PO 2114 Propranolol HCl 10 MG BID 04/10 1000 AC 07/15 PO 2114 Quetiapine Fumarate 400 MG AT BEDTIME 04/10 0215 AC 07/15 PO 2113 Sevelamer Carbonate 2,400 MG TIDAC 04/10 0800 AC 07/16 PO 0806 Sodium Polystyrene 60 ML QMON 05/21 0700 AC 07/16 Sulfonate PO 0542 Sodium Polystyrene 60 ML QSUN 05/20 0700 AC 07/15 Sulfonate PO 0353 Tiotropium [place] 1 PUF DAILY 04/10 1000 AC 07/15 INH 0952 Laboratory Tests 07/13/17 1145: Anion Gap 20 H, Estimated GFR 5 L, BUN/Creatinine Ratio 8.9, Calcium 8.3 L, CBC w Diff NO MAN DIFF REQ, RBC 4.27 L, MCV 89.0, MCH 29.0, MCHC 32.6 L, RDW 18.2 H, MPV 7.5, Gran % 64.3, Lymphocytes % 19.9 L, Monocytes % 7.7, Eosinophils % 7.4 H, Basophils % 0.7, Absolute Granulocytes 5.6, Absolute Lymphocytes 1.7, Absolute Monocytes 0.7 H, Absolute Eosinophils 0.6, Absolute Basophils 0.1 Vital Signs Date Time Temp Pulse Resp B/P B/P Pulse O2 O2 Flow FiO2 Mean Ox Delivery Rate 07/16 0545 97.5 69 18 140/88 96 Room Air 07/15 2113 84 160/70 07/15 2113 84 160/70 07/15 2112 84 160/70 07/15 1700 82 160/98 07/15 1422 97.9 86 20 163/100 95 Room Air
[2017-07-16 12:13] LABS: ABSOLUTE BASOPHIL COUNT 0.1 /CUMM (0.0-0.2); ABSOLUTE EOSINOPHIL COUNT 0.5 /CUMM (0.0-0.7); ABSOLUTE GRANULOCYTE CT 5.2 /CUMM (1.4-6.5); ABSOLUTE LYMPH COUNT 1.7 /CUMM (1.2-3.4); ABSOLUTE MONOCYTE COUNT 0.6 /CUMM (0.10-0.60); BASOPHIL % 0.8 % (0.0-2.0); EOSINOPHIL % 6.2 % (0-5); GRANULOCYTE % 64.7 % (42.2-75.2); HEMATOCRIT 37.3 % (42-52); MEAN CORPUSCULAR HGB 28.9 PG (27.0-31.0); MEAN CORPUSCULAR HGB CONC 32.8 G/DL (33.0-37.0); MEAN CORPUSCULAR VOLUME 88.2 FL (80.0-94.0); MEAN PLATELET VOLUME 7.7 FL (7.4-10.4); PLATELET COUNT 322 /CUMM (130-400); RBC DISTRIBUTION WIDTH 17.5 % (11.5-14.5); RED BLOOD CELL CT 4.22 /CUMM (4.70-6.10); WHITE BLOOD CELL COUNT 8.1 /CUMM (4.8-10.8)
--- NOTE | 2017-07-16 12:58 | PN- Nephrology ---
Assessment/Plan Nephrology Assessment: Pt comfortable. On dialysis now. Will continue MWF dialysis. Awaiting ECF Steve Martinez Suggestion: . Subjective Subjective: Pt on dialysis now. comfortable Objective Vital Signs and I&Os M NAD 140/88 69 97.5 Lungs clear Cor RRR Abd soft Ext neg edema Results Pertinent Lab Results: 136 / 94 / 111 / 6.2 / 20 / 11.5 Hg 12.2
[2017-07-16 15:55] VITALS: BP 122/86
[2017-07-16 21:45] VITALS: BP 146/91
[2017-07-17 07:04] VITALS: BP 105/74
--- NOTE | 2017-07-17 10:25 | PN- Att Addend ---
Attending Addendum Attending Brief Note No new complaints patient in bed. Vital signs stable no fever. No changes on physical. Continue hemodialysis 3 times a week disposition plans continue. Intake & Output 07/17 1600 07/17 0400 07/16 1600 07/16 0400 07/15 1600 07/15 0400 Intake Total 240 480 480 240 830 450 Output Total Balance 240 480 480 240 830 450 Intake, IV 0 0 Intake, Oral 240 480 480 240 830 450 Number 0 0 Bowel Movements Patient 222 lb 225 lb 214 lb Weight Weight Standing Scale Measurement Method Current Medications Sig/Grace Start time Last Medication Dose Route Stop Time Status Admin Acetaminophen 325 MG Q6-PRN PRN 04/09 2245 AC 06/17 PO 2349 Albuterol Sulfate 2 PUF Q4P PRN 04/09 2300 AC 06/13 INH 2001 Aripiprazole 400 MG Q30D 04/24 0900 AC 06/23 IM 0942 Aspirin Buffered 81 MG 0800 04/10 0800 AC 07/17 PO 0805 Atorvastatin Calcium 40 MG 1700 04/10 1700 AC 07/16 PO 1711 Benzocaine 1 GAVIN 4 TIMES/DAY PRN 06/14 1130 AC TOP Benztropine Mesylate 0.5 MG BID 04/10 1000 AC 07/17 PO 0924 Cinacalcet 60 MG DAILY 05/18 1000 AC 07/17 PO 0924 Epoetin [place] 8,000 UNIT MoWeFr PRN 06/25 1130 DC IV Furosemide 80 MG 0800,2200 04/10 0800 AC 07/17 PO 0806 Gabapentin 300 MG AT BEDTIME 04/10 0215 AC 07/16 PO 2116 Hydralazine HCl 20 MG TID 05/08 1100 AC 07/17 PO 0925 Labetalol HCl 100 MG BID 04/10 1000 AC 07/17 PO 0925 Lactobacillus 1 CAP BID 05/24 2200 AC 07/17 Acidophilus PO 0925 Lamotrigine 150 MG DAILY 04/22 1000 AC 07/17 PO 0924 Lidocaine 15 ML TID PRN 06/14 1130 AC 06/14 PO 1414 Multivitamins 1 TAB 1000 04/10 1000 AC 07/17 PO 0924 Omeprazole 40 MG DAILY AC 04/20 1325 AC 07/17 PO 0603 Oxcarbazepine 600 MG BID 04/10 1000 AC 07/17 PO 0925 Propranolol HCl 10 MG BID 04/10 1000 AC 07/17 PO 0924 Quetiapine Fumarate 400 MG AT BEDTIME 04/10 0215 AC 07/16 PO 2115 Sevelamer Carbonate 2,400 MG TIDAC 04/10 0800 AC 07/17 PO 0806 Sodium Polystyrene 60 ML QMON 05/21 0700 AC 07/16 Sulfonate PO 0542 Sodium Polystyrene 60 ML QSUN 05/20 0700 AC 07/15 Sulfonate PO 0353 Tiotropium [place] 1 PUF DAILY 04/10 1000 AC 07/17 INH 0926 Laboratory Tests 07/16/17 1115: Anion Gap 23 H, Estimated GFR 5 L, BUN/Creatinine Ratio 9.7, Calcium 8.2 L, CBC w Diff NO MAN DIFF REQ, RBC 4.22 L, MCV 88.2, MCH 28.9, MCHC 32.8 L, RDW 17.5 H, MPV 7.7, Gran % 64.7, Lymphocytes % 20.9, Monocytes % 7.4, Eosinophils % 6.2 H, Basophils % 0.8, Absolute Granulocytes 5.2, Absolute Lymphocytes 1.7, Absolute Monocytes 0.6, Absolute Eosinophils 0.5, Absolute Basophils 0.1 Vital Signs Date Time Temp Pulse Resp B/P B/P Pulse O2 O2 Flow FiO2 Mean Ox Delivery Rate 07/17 924 97.9 76 18 105/74 07/17 0925 97.9 76 18 115/80 07/17 0924 76 105/74 07/17 0704 97.9 76 18 105/74 97 Room Air 07/16 2144 97.6 81 18 146/91 98 Room Air 07/16 2114 81 146/91 07/16 2114 81 146/91 07/16 2114 81 146/91 07/16 1710 97.4 85 20 122/86 07/16 1710 97.4 85 20 122/86 07/16 1709 97.4 85 20 122/86 07/16 1555 97.4 85 20 122/86 97 Room Air
[2017-07-17 14:09] VITALS: BP 116/78
[2017-07-17 14:35] VITALS: BP 120/82
[2017-07-17 22:58] VITALS: BP 130/80
[2017-07-18 06:27] VITALS: BP 132/84
--- NOTE | 2017-07-18 08:17 | PN- Nephrology ---
Assessment/Plan Nephrology Assessment: Pt on dialysis now. Comfortable. K chronically up please have RD review potassium diet with patient. Steve Madrigal MD. Suggestion: . Subjective Subjective: Pt on dialysis now. Comfortable. Objective Vital Signs and I&Os 132/84 98.2 132/84 Lungs clear Cor RRR Abd soft Ext neg edema Results Pertinent Lab Results: 136 /94 / 111 / 6.2 / 20 / 11.5\ Hg 11.2
[2017-07-18 09:14] LABS: ABSOLUTE BASOPHIL COUNT 0 /CUMM (0.0-0.2); ABSOLUTE EOSINOPHIL COUNT 0.4 /CUMM (0.0-0.7); ABSOLUTE GRANULOCYTE CT 4.9 /CUMM (1.4-6.5); ABSOLUTE LYMPH COUNT 1.8 /CUMM (1.2-3.4); ABSOLUTE MONOCYTE COUNT 0.7 /CUMM (0.10-0.60); BASOPHIL % 0.5 % (0.0-2.0); EOSINOPHIL % 5.7 % (0-5); GRANULOCYTE % 61.9 % (42.2-75.2); HEMATOCRIT 36.2 % (42-52); MEAN CORPUSCULAR HGB 28.5 PG (27.0-31.0); MEAN CORPUSCULAR HGB CONC 32.3 G/DL (33.0-37.0); MEAN CORPUSCULAR VOLUME 88.2 FL (80.0-94.0); MEAN PLATELET VOLUME 7.7 FL (7.4-10.4); PLATELET COUNT 326 /CUMM (130-400); WHITE BLOOD CELL COUNT 7.9 /CUMM (4.8-10.8)
[2017-07-18 14:44] VITALS: BP 120/74
--- NOTE | 2017-07-18 16:33 | PN- Att Addend ---
Attending Addendum Attending Brief Note No new issues mother vital signs are stable no fever. No changes on physical. Patient continues to have hemodialysis treatment times a week, and disposition plans are getting closer to be all in order Intake & Output 07/18 1600 07/18 0400 07/17 1600 07/17 0400 07/16 1600 07/16 0400 Intake Total 360 360 480 480 480 240 Output Total 5000 Balance -4640 360 480 480 480 240 Intake, IV 0 0 Intake, Oral 360 360 480 480 480 240 Number 0 0 Bowel Movements Output, 5000 Dialysate Patient 231 lb 222 lb 225 lb Weight Weight Bed scale Standing Scale Measurement Method Current Medications Sig/Grace Start time Last Medication Dose Route Stop Time Status Admin Acetaminophen 325 MG Q6-PRN PRN 04/09 2245 AC 06/17 PO 2349 Albuterol Sulfate 2 PUF Q4P PRN 04/09 2300 AC 06/13 INH 2001 Aripiprazole 400 MG Q30D 04/24 0900 AC 06/23 IM 0942 Aspirin Buffered 81 MG 0800 04/10 0800 AC 07/18 PO 1230 Atorvastatin Calcium 40 MG 1700 04/10 1700 AC 07/18 PO 1609 Benzocaine 1 GAVIN 4 TIMES/DAY PRN 06/14 1130 AC TOP Benztropine Mesylate 0.5 MG BID 04/10 1000 AC 07/18 PO 1232 Cinacalcet 60 MG DAILY 05/18 1000 AC 07/18 PO 1230 Furosemide 80 MG 0800,2200 04/10 0800 AC 07/18 PO 1230 Gabapentin 300 MG AT BEDTIME 04/10 0215 AC 07/17 PO 2153 Hydralazine HCl 20 MG TID 05/08 1100 AC 07/18 PO 1609 Labetalol HCl 100 MG BID 04/10 1000 AC 07/18 PO 1231 Lactobacillus 1 CAP BID 05/24 2200 AC 07/18 Acidophilus PO 1231 Lamotrigine 150 MG DAILY 04/22 1000 AC 07/18 PO 1230 Lidocaine 15 ML TID PRN 06/14 1130 AC 06/14 PO 1414 Multivitamins 1 TAB 1000 04/10 1000 AC 07/18 PO 1231 Omeprazole 40 MG DAILY AC 04/20 1325 AC 07/18 PO 0549 Oxcarbazepine 600 MG BID 04/10 1000 AC 07/18 PO 1232 Propranolol HCl 10 MG BID 04/10 1000 AC 07/18 PO 1231 Quetiapine Fumarate 400 MG AT BEDTIME 04/10 0215 AC 07/17 PO 2153 Sevelamer Carbonate 2,400 MG TIDAC 04/10 0800 AC 07/18 PO 1609 Sodium Polystyrene 60 ML QMON 05/21 0700 AC 07/16 Sulfonate PO 0542 Sodium Polystyrene 60 ML QSUN 05/20 0700 AC 07/15 Sulfonate PO 0353 Tiotropium [place] 1 PUF DAILY 04/10 1000 AC 07/18 INH 1229 Laboratory Tests 07/18/17 1156: 07/18/17 0745: Anion Gap 21 H, Estimated GFR 5 L, BUN/Creatinine Ratio 9.6, Glucose 116 H, Calcium 7.9 L, Phosphorus 4.8 H, Magnesium 2.0, Albumin 4.0, CBC w Diff NO MAN DIFF REQ, RBC 4.10 L, MCV 88.2, MCH 28.5, MCHC 32.3 L, RDW 17.0 H, MPV 7.7, Gran % 61.9, Lymphocytes % 22.5, Monocytes % 9.4 H, Eosinophils % 5.7 H, Basophils % 0.5, Absolute Granulocytes 4.9, Absolute Lymphocytes 1.8, Absolute Monocytes 0.7 H, Absolute Eosinophils 0.4, Absolute Basophils 0 07/16/17 1115: Anion Gap 23 H, Estimated GFR 5 L, BUN/Creatinine Ratio 9.7, Calcium 8.2 L, CBC w Diff NO MAN DIFF REQ, RBC 4.22 L, MCV 88.2, MCH 28.9, MCHC 32.8 L, RDW 17.5 H, MPV 7.7, Gran % 64.7, Lymphocytes % 20.9, Monocytes % 7.4, Eosinophils % 6.2 H, Basophils % 0.8, Absolute Granulocytes 5.2, Absolute Lymphocytes 1.7, Absolute Monocytes 0.6, Absolute Eosinophils 0.5, Absolute Basophils 0.1 Vital Signs Date Time Temp Pulse Resp B/P B/P Pulse O2 O2 Flow FiO2 Mean Ox Delivery Rate 07/18 1609 80 119/80 07/18 1444 98.7 82 20 120/74 92 07/18 1231 110/70 07/18 1231 89 110/70 07/18 1231 98.2 89 110/70 07/18 0627 98.2 79 2 132/84 96 Room Air 07/17 2258 98.6 91 20 130/80 96 Room Air 07/17 2153 91 130/80 03 2153 91 130/80 07/17 2152 91 130/80 07/17 1713 88 130/80
[2017-07-18 22:43] VITALS: BP 119/78
[2017-07-19 07:06] VITALS: BP 120/76
--- NOTE | 2017-07-19 12:45 | PN- Att Addend ---
Attending Addendum Attending Brief Note No new complaints vital signs are stable no fever. No changes on physical if stable continue hemodialysis 3 times a week hopefully the disposition plans would be final by the beginning of next week Intake & Output 07/19 1600 07/19 0400 07/18 1600 07/18 0400 07/17 1600 07/17 0400 Intake Total 240 500 360 360 480 480 Output Total 200 5000 Balance 240 300 -4640 360 480 480 Intake, Oral 240 500 360 360 480 480 Number 1 Bowel Movements Output, 5000 Dialysate Output, Urine 200 Patient 212 lb 231 lb 222 lb Weight Weight Bed scale Bed scale Standing Scale Measurement Method Current Medications Sig/Grace Start time Last Medication Dose Route Stop Time Status Admin Acetaminophen 325 MG Q6-PRN PRN 04/09 2245 AC 06/17 PO 2349 Albuterol Sulfate 2 PUF Q4P PRN 04/09 2300 AC 06/13 INH 2001 Aripiprazole 400 MG Q30D 04/24 0900 AC 06/23 IM 0942 Aspirin Buffered 81 MG 0800 04/10 0800 AC 07/19 PO 0726 Atorvastatin Calcium 40 MG 1700 04/10 1700 AC 07/18 PO 1609 Benzocaine 1 GAVIN 4 TIMES/DAY PRN 06/14 1130 AC TOP Benztropine Mesylate 0.5 MG BID 04/10 1000 AC 07/19 PO 0956 Cinacalcet 60 MG DAILY 05/18 1000 AC 07/19 PO 0956 Furosemide 80 MG 0800,2200 04/10 0800 AC 07/19 PO 0726 Gabapentin 300 MG AT BEDTIME 04/10 0215 AC 07/18 PO 2242 Hydralazine HCl 20 MG TID 05/08 1100 AC 07/19 PO 0956 Labetalol HCl 100 MG BID 04/10 1000 AC 07/19 PO 0956 Lactobacillus 1 CAP BID 05/24 2200 AC 07/19 Acidophilus PO 0956 Lamotrigine 150 MG DAILY 04/22 1000 AC 07/19 PO 0956 Lidocaine 15 ML TID PRN 06/14 1130 AC 06/14 PO 1414 Multivitamins 1 TAB 1000 04/10 1000 AC 07/19 PO 0956 Omeprazole 40 MG DAILY AC 04/20 1325 AC 07/19 PO 0540 Oxcarbazepine 600 MG BID 04/10 1000 AC 07/19 PO 0957 Patient Medication 1 ED ONE ONE 07/19 1145 DC Teaching ED 07/19 1146 Propranolol HCl 10 MG BID 04/10 1000 AC 07/19 PO 0956 Quetiapine Fumarate 400 MG AT BEDTIME 04/10 0215 AC 07/18 PO 2242 Sevelamer Carbonate 2,400 MG TIDAC 04/10 0800 AC 07/19 PO 1137 Sodium Polystyrene 60 ML QMON 05/21 0700 AC 07/16 Sulfonate PO 0542 Sodium Polystyrene 60 ML QSUN 05/20 0700 AC 07/15 Sulfonate PO 0353 Tiotropium [place] 1 PUF DAILY 04/10 1000 AC 07/19 INH 0955 Laboratory Tests 07/18/17 1156: 07/18/17 0745: Anion Gap 21 H, Estimated GFR 5 L, BUN/Creatinine Ratio 9.6, Glucose 116 H, Calcium 7.9 L, Phosphorus 4.8 H, Magnesium 2.0, Albumin 4.0, CBC w Diff NO MAN DIFF REQ, RBC 4.10 L, MCV 88.2, MCH 28.5, MCHC 32.3 L, RDW 17.0 H, MPV 7.7, Gran % 61.9, Lymphocytes % 22.5, Monocytes % 9.4 H, Eosinophils % 5.7 H, Basophils % 0.5, Absolute Granulocytes 4.9, Absolute Lymphocytes 1.8, Absolute Monocytes 0.7 H, Absolute Eosinophils 0.4, Absolute Basophils 0 Vital Signs Date Time Temp Pulse Resp B/P B/P Pulse O2 O2 Flow FiO2 Mean Ox Delivery Rate 07/20 955 76 120/76 07/19 0956 76 120/76 07/19 0956 76 120/76 07/19 0706 98.0 76 20 120/76 07/18 2242 80 119/78 07/18 2243 80 119/78 07/18 2240 80 119/78 07/18 2240 80 119/78 07/18 1609 80 119/80 07/18 1444 98.7 82 20 120/74 92
[2017-07-19 14:50] VITALS: BP 124/50
[2017-07-19 22:28] VITALS: BP 110/66
[2017-07-20 07:29] VITALS: BP 102/64
--- NOTE | 2017-07-20 10:15 | PN- Nephrology ---
Assessment/Plan Nephrology Assessment: ESRD for dialysis later today. Doing well. Awaiting ECF. Suggestion: . Subjective Subjective: Pt comfortable. For dialysis later today. Objective Vital Signs and I&Os M NAD 102/64 98 81 Lungs clear Cor RRR Abd soft Ext neg edema Results Pertinent Lab Results: Laboratory Tests 07/18 07/18 1156 0745 Chemistry Sodium (137 - 145 mmol/L) 136 L Potassium (3.5 - 5.1 mmol/L) 5.9 H Chloride (98 - 107 mmol/L) 94 L Carbon Dioxide (22 - 30 mmol/L) 21 L Anion Gap (5 - 16) 21 H BUN (9 - 20 mg/dL) 29 H 96 H Creatinine (0.7 - 1.2 mg/dL) 10.0 *H Estimated GFR (>60 ml/min) 5 L BUN/Creatinine Ratio (7 - 25 %) 9.6 Glucose (65 - 99 mg/dL) 116 H Calcium (8.4 - 10.2 mg/dL) 7.9 L Phosphorus (2.5 - 4.5 mg/dL) 4.8 H Magnesium (1.6 - 2.3 mg/dL) 2.0 Albumin (3.5 - 5.0 g/dL) 4.0 Hematology CBC w Diff NO MAN DIFF REQ WBC (4.8 - 10.8 /CUMM) 7.9 RBC (4.70 - 6.10 /CUMM) 4.10 L Hgb (14.0 - 18.0 G/DL) 11.7 L Hct (42 - 52 %) 36.2 L MCV (80.0 - 94.0 FL) 88.2 MCH (27.0 - 31.0 PG) 28.5 MCHC (33.0 - 37.0 G/DL) 32.3 L RDW (11.5 - 14.5 %) 17.0 H Plt Count (130 - 400 /CUMM) 326 MPV (7.4 - 10.4 FL) 7.7 Gran % (42.2 - 75.2 %) 61.9 Lymphocytes % (20.5 - 51.1 %) 22.5 Monocytes % (1.7 - 9.3 %) 9.4 H Eosinophils % (0 - 5 %) 5.7 H Basophils % (0.0 - 2.0 %) 0.5 Absolute Granulocytes (1.4 - 6.5 /CUMM) 4.9 Absolute Lymphocytes (1.2 - 3.4 /CUMM) 1.8 Absolute Monocytes (0.10 - 0.60 /CUMM) 0.7 H Absolute Eosinophils (0.0 - 0.7 /CUMM) 0.4 Absolute Basophils (0.0 - 0.2 /CUMM) 0
--- NOTE | 2017-07-20 11:44 | PN- Psychiatry ---
Assessment/Plan Impression: Denies side effects from psychotropic medications, and that they are working well. Psychiatrically stable. Supportive brother, Oj, at home. Last EKG 06/27/17: 91 bpm, SR, QTc 468. Potassium and magnesium are WNL, as of 07/18/17. Suggestion: 1. Abilify Maintena 400 MG IM q 30 days is due 07/21/17. This is in stock in the inpatient pharmacy, as of 07/19/17. 2. Continue the patient's current psychotropic medications: Quetiapine 400 mg PO at bedtime Oxcarbemazapine 600 mg PO 2X/day Lamotrigine 150 mg PO daily Benztropine 0.5 mg PO 2X/day Abilify Maintena 400 mg IM every 30 days, due on 07/21/17 3. The patient's conservator is Ciarra Dunbarrina Jose Eduardo, , X. 101. 4. The patient will need an outpatient hemodialysis slot with transportation, VNA services, a follow-up appointment for psychiatric care, which case management or medical social work may be working helping arrange. The patient is clear for discharge from a psychiatry viewpoint. He is stable on his current psychotropic regimen, feels they are working well, and denies side effects from the meds, as above. Psychiatry is signing off Thank you for this consult. Subjective Subjective: A+OX3 Denies AH or VH, and presents no rufina delusions Denies depressive feelings Denies anxiety Sleep is through the night and restful, with an occasional daytime nap. He denies bad dreams. Review of Systems Neurological/Psychological: Reports: no symptoms. Objective Last 24 Hrs of Vital Signs/I&O Vital Signs Date Time Temp Pulse Resp B/P B/P Pulse O2 O2 Flow FiO2 Mean Ox Delivery Rate 07/20 0729 98.3 81 20 102/64 96 Room Air 07/198 97.8 95 20 110/66 95 Room Air 07/19 2140 95 110/66 07/19 2140 95 110/66 07/19 2140 95 110/66 07/19 1644 89 108/62 07/19 1450 97.9 80 18 124/50 97 Room Air Intake & Output 07/20 1600 07/20 0800 07/20 0000 Intake Total 200 200 Output Total 0 Balance 200 200 Intake, Oral 200 200 Number 0 Bowel Movements Output, Urine 0 Patient 232 lb Weight Weight Standing Scale Measurement Method Physical Exam: Not performed Physical Exam General Appearance: no apparent distress, alert, awake, comfortable Neurologic/Psychiatric: no motor/sensory deficits, awake, alert, oriented x 3, normal gait, normal mood/affect Current Medications: Current Medications Sig/Grace Start time Last Medication Dose Route Stop Time Status Admin Acetaminophen 325 MG Q6-PRN PRN 04/09 2245 AC 06/17 PO 2349 Albuterol Sulfate 2 PUF Q4P PRN 04/09 2300 AC 06/13 INH 2001 Aripiprazole 400 MG Q30D 04/24 0900 AC 06/23 IM 0942 Aspirin Buffered 81 MG 0804/10 0800 AC 07/20 PO 0808 Atorvastatin Calcium 40 MG 1700 04/10 1700 AC 07/19 PO 1645 Benzocaine 1 GAVIN 4 TIMES/DAY PRN 06/14 1130 AC TOP Benztropine Mesylate 0.5 MG BID 04/10 1000 AC 07/20 PO 0930 Cinacalcet 60 MG DAILY 05/18 1000 AC 07/20 PO 0929 Furosemide 80 MG 0800,2200 04/10 0800 AC 07/20 PO 0807 Gabapentin 300 MG AT BEDTIME 04/10 0215 AC 07/19 PO 2140 Hydralazine HCl 20 MG TID 05/08 1100 AC 07/19 PO 2141 Labetalol HCl 100 MG BID 04/10 1000 AC 07/19 PO 2141 Lactobacillus 1 CAP BID 05/24 2200 AC 07/20 Acidophilus PO 0930 Lamotrigine 150 MG DAILY 04/22 1000 AC 07/20 PO 0933 Lidocaine 15 ML TID PRN 06/14 1130 AC 06/14 PO 1414 Multivitamins 1 TAB 1000 04/10 1000 AC 07/20 PO 0929 Omeprazole 40 MG DAILY AC 04/20 1325 AC 07/20 PO 0626 Oxcarbazepine 600 MG BID 04/10 1000 AC 07/20 PO 0930 Patient Medication 1 ED ONE ONE 07/19 1145 DC Teaching ED 07/19 1146 Propranolol HCl 10 MG BID 04/10 1000 AC 07/19 PO 2141 Quetiapine Fumarate 400 MG AT BEDTIME 04/10 0215 AC 07/19 PO 2141 Sevelamer Carbonate 2,400 MG TIDAC 04/10 0800 AC 07/20 PO 0808 Sodium Polystyrene 60 ML QMON 05/21 0700 AC 07/16 Sulfonate PO 0542 Sodium Polystyrene 60 ML QSUN 05/20 0700 AC 07/15 Sulfonate PO 0353 Tiotropium [place] 1 PUF DAILY 04/10 1000 AC 07/20 INH 0935 Results Last 24 Hrs of Labs/Mics: Laboratory Tests 07/18 07/18 1156 0745 Chemistry Sodium (137 - 145 mmol/L) 136 L Potassium (3.5 - 5.1 mmol/L) 5.9 H Chloride (98 - 107 mmol/L) 94 L Carbon Dioxide (22 - 30 mmol/L) 21 L Anion Gap (5 - 16) 21 H BUN (9 - 20 mg/dL) 29 H 96 H Creatinine (0.7 - 1.2 mg/dL) 10.0 *H Estimated GFR (>60 ml/min) 5 L BUN/Creatinine Ratio (7 - 25 %) 9.6 Glucose (65 - 99 mg/dL) 116 H Calcium (8.4 - 10.2 mg/dL) 7.9 L Phosphorus (2.5 - 4.5 mg/dL) 4.8 H Magnesium (1.6 - 2.3 mg/dL) 2.0 Albumin (3.5 - 5.0 g/dL) 4.0 Hematology CBC w Diff NO MAN DIFF REQ WBC (4.8 - 10.8 /CUMM) 7.9 RBC (4.70 - 6.10 /CUMM) 4.10 L Hgb (14.0 - 18.0 G/DL) 11.7 L Hct (42 - 52 %) 36.2 L MCV (80.0 - 94.0 FL) 88.2 MCH (27.0 - 31.0 PG) 28.5 MCHC (33.0 - 37.0 G/DL) 32.3 L RDW (11.5 - 14.5 %) 17.0 H Plt Count (130 - 400 /CUMM) 326 MPV (7.4 - 10.4 FL) 7.7 Gran % (42.2 - 75.2 %) 61.9 Lymphocytes % (20.5 - 51.1 %) 22.5 Monocytes % (1.7 - 9.3 %) 9.4 H Eosinophils % (0 - 5 %) 5.7 H Basophils % (0.0 - 2.0 %) 0.5 Absolute Granulocytes (1.4 - 6.5 /CUMM) 4.9 Absolute Lymphocytes (1.2 - 3.4 /CUMM) 1.8 Absolute Monocytes (0.10 - 0.60 /CUMM) 0.7 H Absolute Eosinophils (0.0 - 0.7 /CUMM) 0.4 Absolute Basophils (0.0 - 0.2 /CUMM) 0
[2017-07-20 12:42] LABS: ABSOLUTE BASOPHIL COUNT 0.1 /CUMM (0.0-0.2); ABSOLUTE EOSINOPHIL COUNT 0.5 /CUMM (0.0-0.7); ABSOLUTE GRANULOCYTE CT 5.9 /CUMM (1.4-6.5); ABSOLUTE LYMPH COUNT 1.8 /CUMM (1.2-3.4); ABSOLUTE MONOCYTE COUNT 0.7 /CUMM (0.10-0.60); BASOPHIL % 0.6 % (0.0-2.0); EOSINOPHIL % 5.7 % (0-5); GRANULOCYTE % 65.5 % (42.2-75.2); HEMATOCRIT 37.5 % (42-52); MEAN CORPUSCULAR HGB 28.9 PG (27.0-31.0); MEAN CORPUSCULAR HGB CONC 32.8 G/DL (33.0-37.0); MEAN CORPUSCULAR VOLUME 88.1 FL (80.0-94.0); MEAN PLATELET VOLUME 7.6 FL (7.4-10.4); PLATELET COUNT 304 /CUMM (130-400); RBC DISTRIBUTION WIDTH 17.3 % (11.5-14.5); RED BLOOD CELL CT 4.26 /CUMM (4.70-6.10); WHITE BLOOD CELL COUNT 9.1 /CUMM (4.8-10.8)
--- NOTE | 2017-07-20 19:20 | PN- Att Addend ---
Attending Addendum Attending Brief Note no new issues stable BP low Meds held this am Pt needs placement Cont dialysis Intake & Output 07/20 1600 07/20 0800 07/20 0000 Intake Total 200 200 Output Total 0 Balance 200 200 Intake, Oral 200 200 Number 0 Bowel Movements Output, Urine 0 Patient 232 lb Weight Weight Standing Scale Measurement Method Current Medications Sig/Grace Start time Last Medication Dose Route Stop Time Status Admin Acetaminophen 325 MG Q6-PRN PRN 04/09 2245 AC 06/17 PO 2349 Albuterol Sulfate 2 PUF Q4P PRN 04/09 2300 AC 06/13 INH 2001 Aripiprazole 400 MG Q30D 04/24 0900 AC 06/23 IM 0942 Aspirin Buffered 81 MG 0800 04/10 0800 AC 07/20 PO 0808 Atorvastatin Calcium 40 MG 1700 04/10 1700 AC 07/20 PO 1700 Benzocaine 1 GAVIN 4 TIMES/DAY PRN 06/14 1130 AC TOP Benztropine Mesylate 0.5 MG BID 04/10 1000 AC 07/20 PO 0930 Cinacalcet 60 MG DAILY 05/18 1000 AC 07/20 PO 0929 Furosemide 80 MG 0800,2200 04/10 0800 AC 07/20 PO 0807 Gabapentin 300 MG AT BEDTIME 04/10 0215 AC 07/19 PO 2140 Hydralazine HCl 20 MG TID 05/08 1100 AC 07/20 PO 1700 Labetalol HCl 100 MG BID 04/10 1000 AC 07/19 PO 2141 Lactobacillus 1 CAP BID 05/24 2200 AC 07/20 Acidophilus PO 0930 Lamotrigine 150 MG DAILY 04/22 1000 AC 07/20 PO 0933 Lidocaine 15 ML TID PRN 06/14 1130 AC 06/14 PO 1414 Multivitamins 1 TAB 1000 04/10 1000 AC 07/20 PO 0929 Omeprazole 40 MG DAILY AC 04/20 1325 AC 07/20 PO 0626 Oxcarbazepine 600 MG BID 04/10 1000 AC 07/20 PO 0930 Propranolol HCl 10 MG BID 04/10 1000 AC 07/19 PO 2141 Quetiapine Fumarate 400 MG AT BEDTIME 04/10 0215 AC 07/19 PO 2141 Sevelamer Carbonate 2,400 MG TIDAC 04/10 0800 AC 07/20 PO 1700 Sodium Polystyrene 60 ML QMON 05/21 0700 AC 07/16 Sulfonate PO 0542 Sodium Polystyrene 60 ML QSUN 05/20 0700 AC 07/15 Sulfonate PO 0353 Tiotropium [place] 1 PUF DAILY 04/10 1000 AC 07/20 INH 0935 Laboratory Tests 07/20 07/20 1154 1145 Chemistry Sodium (137 - 145 mmol/L) 134 L Potassium (3.5 - 5.1 mmol/L) 5.1 Chloride (98 - 107 mmol/L) 93 L Carbon Dioxide (22 - 30 mmol/L) 19 L Anion Gap (5 - 16) 22 H BUN (9 - 20 mg/dL) 85 H Creatinine (0.7 - 1.2 mg/dL) 9.4 *H Estimated GFR (>60 ml/min) 6 L BUN/Creatinine Ratio (7 - 25 %) 9.0 Glucose (65 - 99 mg/dL) 140 H Calcium (8.4 - 10.2 mg/dL) 7.9 L Hematology CBC w Diff NO MAN DIFF REQ WBC (4.8 - 10.8 /CUMM) 9.1 RBC (4.70 - 6.10 /CUMM) 4.26 L Hgb (14.0 - 18.0 G/DL) 12.3 L Hct (42 - 52 %) 37.5 L MCV (80.0 - 94.0 FL) 88.1 MCH (27.0 - 31.0 PG) 28.9 MCHC (33.0 - 37.0 G/DL) 32.8 L RDW (11.5 - 14.5 %) 17.3 H Plt Count (130 - 400 /CUMM) 304 MPV (7.4 - 10.4 FL) 7.6 Gran % (42.2 - 75.2 %) 65.5 Lymphocytes % (20.5 - 51.1 %) 20.0 L Monocytes % (1.7 - 9.3 %) 8.2 Eosinophils % (0 - 5 %) 5.7 H Basophils % (0.0 - 2.0 %) 0.6 Absolute Granulocytes (1.4 - 6.5 /CUMM) 5.9 Absolute Lymphocytes (1.2 - 3.4 /CUMM) 1.8 Absolute Monocytes (0.10 - 0.60 /CUMM) 0.7 H Absolute Eosinophils (0.0 - 0.7 /CUMM) 0.5 Absolute Basophils (0.0 - 0.2 /CUMM) 0.1 Vital Signs Date Time Temp Pulse Resp B/P B/P Pulse O2 O2 Flow FiO2 Mean Ox Delivery Rate 07/20 1700 78 110/70 07/20 1000 81 102/64 07/20 1000 81 102/64 07/20 1000 81 102/64 07/20 0729 98.3 81 20 102/64 96 Room Air 07/198 97.8 95 20 110/66 95 Room Air 07/19 2141 95 110/66 07/19 2140 95 110/66 07/19 2140 95 110/66
[2017-07-20 21:41] VITALS: BP 110/80
[2017-07-21 06:00] VITALS: BP 120/82
--- NOTE | 2017-07-21 14:34 | PN- Att Addend ---
Attending Addendum Attending Brief Note Mr. Burciaga was interviewed and examined. His EMR was reviewed. He has no complaints. His vital signs are stable and his blood pressures have corrected. Physical exam remains unchanged. Laboratory values from yesterday were reviewed and are acceptable. We are continuing a search for hemodialysis chair for this patient.
[2017-07-21 14:45] VITALS: BP 132/70
[2017-07-21 22:12] VITALS: BP 134/80
[2017-07-22 06:05] VITALS: BP 122/70
[2017-07-22 14:48] VITALS: BP 156/60
--- NOTE | 2017-07-22 15:10 | PN- Att Addend ---
Attending Addendum Attending Brief Note Mr. Sanches was interviewed and examined. His EMR was reviewed. He has no complaints. He remains afebrile with stable vital signs. Physical exam is once again benign. He has no laboratory studies to review. Mr. Sanches remains stable and discharge is anticipated for the a.m.
[2017-07-22 21:43] VITALS: BP 142/82
[2017-07-23 06:18] VITALS: BP 148/90
[2017-07-23 08:35] LABS: ABSOLUTE BASOPHIL COUNT 0.1 /CUMM (0.0-0.2); ABSOLUTE EOSINOPHIL COUNT 0.5 /CUMM (0.0-0.7); ABSOLUTE GRANULOCYTE CT 4.6 /CUMM (1.4-6.5); ABSOLUTE LYMPH COUNT 1.3 /CUMM (1.2-3.4); ABSOLUTE MONOCYTE COUNT 0.6 /CUMM (0.10-0.60); BASOPHIL % 0.8 % (0.0-2.0); EOSINOPHIL % 6.8 % (0-5); GRANULOCYTE % 65.4 % (42.2-75.2); MEAN CORPUSCULAR HGB 28.6 PG (27.0-31.0); MEAN CORPUSCULAR HGB CONC 32.7 G/DL (33.0-37.0); MEAN CORPUSCULAR VOLUME 87.6 FL (80.0-94.0); MEAN PLATELET VOLUME 7.7 FL (7.4-10.4); RBC DISTRIBUTION WIDTH 16.8 % (11.5-14.5); RED BLOOD CELL CT 4.34 /CUMM (4.70-6.10); WHITE BLOOD CELL COUNT 7.1 /CUMM (4.8-10.8)
[2017-07-23 09:02] LABS: PLATELET COUNT 325 /CUMM (130-400)
--- NOTE | 2017-07-23 11:11 | PN- Att Addend ---
Attending Addendum Attending Brief Note Hemodialysis in progress vital signs are stable, no fever red no changes on physical arrangements complete for outpatient hemodialysis and orange for visiting nurses follow-up the patient will be discharged later on today, to follow with me as an outpatient and with the inpatient nursing aide and also follow with psychiatry. Intake & Output 07/23 1600 07/23 0400 07/22 1600 07/22 0400 07/21 1600 07/21 0400 Intake Total 250 250 965 610 600 150 Output Total Balance 250 250 965 610 600 150 Intake, Oral 250 250 965 610 600 150 Patient 176 lb 229 lb 202 lb Weight Weight Bed scale Standing Scale Bed scale Measurement Method Current Medications Sig/Grace Start time Last Medication Dose Route Stop Time Status Admin Acetaminophen 325 MG Q6-PRN PRN 04/09 2245 AC 06/17 PO 2349 Albuterol Sulfate 2 PUF Q4P PRN 04/09 2300 AC 06/13 INH 2001 Aripiprazole 400 MG Q30D 04/24 0900 AC 06/23 IM 0942 Aspirin Buffered 81 MG 0800 04/10 0800 AC 07/22 PO 0736 Atorvastatin Calcium 40 MG 1700 04/10 1700 AC 07/22 PO 1612 Benzocaine 1 GAVIN 4 TIMES/DAY PRN 06/14 1130 AC TOP Benztropine Mesylate 0.5 MG BID 04/10 1000 AC 07/22 PO 211 Cinacalcet 60 MG DAILY 05/18 1000 AC 07/22 PO 1006 Furosemide 80 MG 0800,2200 04/10 0800 AC 07/22 PO 211 Gabapentin 300 MG AT BEDTIME 04/10 0215 AC 07/22 PO 211 Hydralazine HCl 20 MG TID 05/08 1100 AC 07/22 PO 2114 Labetalol HCl 100 MG BID 04/10 1000 AC 07/22 PO 2114 Lactobacillus 1 CAP BID 05/24 2200 AC 07/22 Acidophilus PO 2112 Lamotrigine 150 MG DAILY 04/22 1000 AC 07/22 PO 1007 Lidocaine 15 ML TID PRN 06/14 1130 AC 06/14 PO 1414 Multivitamins 1 TAB 1000 04/10 1000 AC 07/22 PO 1007 Omeprazole 40 MG DAILY AC 04/20 1325 AC 07/23 PO 0605 Oxcarbazepine 600 MG BID 04/10 1000 AC 07/22 PO 2113 Propranolol HCl 10 MG BID 04/10 1000 AC 07/22 PO 211 Quetiapine Fumarate 400 MG AT BEDTIME 04/10 0215 AC 07/22 PO 211 Sevelamer Carbonate 2,400 MG TIDAC 04/10 0800 AC 07/22 PO 1612 Sodium Polystyrene 60 ML QMON 05/21 0700 AC 07/23 Sulfonate PO 0409 Sodium Polystyrene 60 ML QSUN 05/20 0700 AC 07/22 Sulfonate PO 0511 Tiotropium [place] 1 PUF DAILY 04/10 1000 AC 07/22 INH 1211 Laboratory Tests 07/23/17 0800: Anion Gap 21 H, Estimated GFR 5 L, BUN/Creatinine Ratio 7.4, Calcium 8.4, CBC w Diff NO MAN DIFF REQ, RBC 4.34 L, MCV 87.6, MCH 28.6, MCHC 32.7 L, RDW 16.8 H, MPV 7.7, Gran % 65.4, Lymphocytes % 19.0 L, Monocytes % 8.0, Eosinophils % 6.8 H, Basophils % 0.8, Absolute Granulocytes 4.6, Absolute Lymphocytes 1.3, Absolute Monocytes 0.6, Absolute Eosinophils 0.5, Absolute Basophils 0.1 07/20/17 1154: CBC w Diff NO MAN DIFF REQ, RBC 4.26 L, MCV 88.1, MCH 28.9, MCHC 32.8 L, RDW 17.3 H, MPV 7.6, Gran % 65.5, Lymphocytes % 20.0 L, Monocytes % 8.2, Eosinophils % 5.7 H, Basophils % 0.6, Absolute Granulocytes 5.9, Absolute Lymphocytes 1.8, Absolute Monocytes 0.7 H, Absolute Eosinophils 0.5, Absolute Basophils 0.1 07/20/17 1145: Anion Gap 22 H, Estimated GFR 6 L, BUN/Creatinine Ratio 9.0, Glucose 140 H, Calcium 7.9 L Vital Signs Date Time Temp Pulse Resp B/P B/P Pulse O2 O2 Flow FiO2 Mean Ox Delivery Rate 07/23 617 97.5 75 20 148/90 97 07/22 2143 98.6 80 18 142/82 96 Room Air 07/22 2113 83 156/60 07/22 211 83 156/60 07/22 211 83 156/60 07/22 1612 15607/22 1448 98.0 83 20 156 96 Room Air
--- NOTE | 2017-07-23 11:42 | Discharge Summary ---
See Addendum Visit Information Visit Dates Admission Date: 04/09/17 Discharge Date: 07/23/2016 Hospital Course Course Attending Physician: Ashok Durand MD Primary Care Physician: Ashok Durand MD Consulting Request: Consulting Specialty: Nephrology (gastroenterology ,psychiatry a) Consulting Physician: Chan Barnes MD, Gabino Owen MD and psychiatry and patient Dr. Reason for Consult: chronic renal failure on hemodialysis anemia, and toward the Hospital Course: Attending Brief Note 61-year-old white male with many comorbidities, chronic kidney insufficiency on hemodialysis 3 times a week. History of CHF coronary artery disease recent stent with complications. Again comes in stating that he is short of breath , in the ER his saturations were okay, was found to be very anemic. Patient will be admitted will be cautiously transfused monitor for CHF notify nephrology for his hemodialysis, and get a GI consultation also have cardiology follow the patient. No obvious signs or symptoms of any acute bleeding despite dropping of the hemoglobin and hematocrit were patient received more blood. Monitoring his CBC closely had CT scan of abdomen showed no signs of bleeding. No signs of any hematomas or any other abnormalities. Patient continued hemodialysis 3 times a week and checking the labs periodically patient had a sitter to his psychiatric behavior which has been fine while the whole hospitalization. instructional media services technician and conservator started looking for facility to take care of him. It was decided stable enough psychiatrically to be able to go home and go to hemodialysis treatment times a week and as long as he takes his medications he should be fine. Complications: None Allergies: Coded Allergies: chlorpromazine (From THORAZINE) (Severe, ANAPHYLAXIS 02/19/17) trifluoperazine (From STELAZINE) (Severe, ANAPHYLAXIS 10/03/15) lithium (PER PT "KILLED MY KIDNEYS" 01/24/17) venom-honey bee (BEE VENOM (HONEY BEE)) (UNKNOWN 10/03/15) Significant Procedures: Patient had an upper endoscopy 1 in the hospital serial blood work and had hemodialysis 3 times a week Pertinent Lab Results: Had many blood tests from the hospitalization his renal function is always abnormal and his H&H stabilized Disposition Summary Disposition Principal Diagnosis: Shortness of breath Symptomatic anemia Chronic kidney insufficiency on hemodialysis Atypical chest pain Additional Diagnosis: Hypertension Hyperlipidemia Bipolar disorder COPD/asthma Seizure disorder Discharge Disposition: home health services Discharge Instructions General Discharge Information Code Status: Full Code Patient's Diet: Renal and healthy heart diet Patient's Activity: As tolerated Follow-Up Instructions/Appts: Follow-up with Dr. Durand, psychiatry, and hemodialysis 3 times a week Medications at Discharge Discharge Medications: Continue taking these medications: Aripiprazole (Abilify Maintena) 400 MG SUSER.VIAL 400 Milligram INTRAMUSC ONCE A MONTH Qty = 429 Comments: Last Taken:PT REPORTS HE HAD HIS INJECTION ON 02/24/17 Time:NOT GIVEN DURING THIS HOSPITAL STAY Furosemide (Lasix) 40 MG TABLET 2 Tablet ORAL 0800,2200 Qty = 1 Comments: Last Taken:03/14/17 Time:0800 Lamotrigine (Lamictal) 150 MG TABLET 1 Tablet ORAL DAILY Qty = 1 Comments: Last Taken:03/14/17 Time:0900 Atorvastatin Calcium (Atorvastatin Calcium) 40 MG TABLET 1 Capsule ORAL 5 PM Qty = 60 Comments: Last Taken:03/13/17 Time:1622 Benztropine Mesylate (Benztropine Mesylate) 0.5 MG TABLET 1 Tablet ORAL TWICE DAILY Comments: Last Taken:03/14/17 Time:0800 Sevelamer Carbonate (Renvela) 800 MG TABLET 3 Tablet ORAL 3 TIMES DAILY BEFORE MEALS Qty = 135 Comments: Last Taken:03/13/17 Time:1622 Sevelamer Carbonate (Renvela) 800 MG TABLET 2 Tablet ORAL EVERY 4 HOURS NEEDED as needed for dialysis Qty = 60 Comments: Last Taken:03/08/17 Time:2200 Tiotropium [place] (Spiriva) 18 MCG CAP.W.DEV 1 Inhaler Inhale through mouth DAILY Qty = 1 Comments: Last Taken:03/14/17 Time:0900 Albuterol Sulfate (Ventolin Hfa) 90 MCG HFA.AER.AD 1 Inhaler Inhale through mouth EVERY 4 HOURS NEEDED as needed for asthma Qty = 1 Comments: Last Taken:03/09/17 Time:0330 Epoetin Florentino (Procrit) 3,000 UNIT/ML VIAL 3,000 Unit INTRAVEN TuThSa Days = 14 Comments: Last Taken:GIVEN 3XS WEEKLY WITH DIALYSIS Time: Hydralazine HCl (Hydralazine HCl) 10 MG TABLET 2 Tablet ORAL TWICE DAILY Days = 14 Comments: Last Taken:03/14/17 Time:0800 Nitroglycerin (Nitroglycerin Patch) 0.4 MG/HOUR PATCH.TD24 1 Patch On the skin DAILY NEEDED as needed for CHEST PAIN Days = 14 Comments: Last Taken:NOT USED IN THE HOSPITAL Time: Propranolol HCl (Propranolol HCl) 10 MG TABLET 1 Tablet ORAL TWICE DAILY Days = 14 Comments: Last Taken:03/09/17 Time:0800 Labetalol HCl (Labetalol HCl) 100 MG TABLET 1 Tablet ORAL TWICE DAILY Days = 14 Comments: Last Taken:03/14/17 Time:0800 Aspirin (Ecotrin*) 81 MG TABLET.DR 1 Tablet ORAL DAILY @8 AM Days = 14 Comments: Last Taken:03/14/17 Time:0800 Oxcarbazepine (Trileptal) 150 MG TABLET 4 Tablet ORAL TWICE DAILY Days = 14 Comments: Last Taken:03/14/17 Time:0800 Gabapentin (Gabapentin) 300 MG CAPSULE 1 Tablet ORAL AT BEDTIME Days = 14 Comments: Last Taken:03/08/17 Time:2200 Quetiapine Fumarate (Quetiapine Fumarate) 100 MG TABLET 4 Tablet ORAL AT BEDTIME Days = 14 Comments: Last Taken:03/13/17 Time:2350 Cinacalcet HCl (Sensipar) 30 MG TABLET 1 Tablet ORAL DAILY Days = 14 Comments: Last Taken:03/09/17 Time:0800 Nephro-Vitamins (Nephro-Tara Tablet) 0.8 MG TABLET 1 Tablet ORAL 1000 Days = 14 Comments: Last Taken:03/09/17 Time:0800 Copies To: Greg Baron APRN, MD,Chan Knox; Gabino Owen MD; Ashok Durand MD Attending MD Review Statement Documenting Attending: Ashok Durand MD
--- NOTE | 2017-07-23 13:54 | PN- Nephrology ---
Assessment/Plan Nephrology Assessment: 1. ESRD 2. Bipolar disorder 3. History of chronic noncompliance Suggestion: 1. Hemodialysis today with 4-5 L ultrafiltration over 4 hours as tolerated 2. Okay for discharge after dialysis from renal standpoint Subjective Subjective: Patient offers no complaints and is anxious to go home. Seen with hemodialysis. Objective Vital Signs and I&Os Vital Signs Date Time Temp Pulse Resp B/P B/P Pulse O2 O2 Flow FiO2 Mean Ox Delivery Rate 07/23 1322 80 107/64 07/23 1322 80 107/64 07/23 1316 80 107/64 07/23 0618 97.5 75 20 148/90 97 07/22 2143 98.6 80 18 142/82 96 Room Air 07/22 211 83 156/60 07/22 2114 83 156/60 07/22 211 83 156/60 07/22 1612 156/60 07/22 1448 98.0 83 20 156/60 96 Room Air Intake & Output 07/23 1600 07/23 0400 07/22 1600 07/22 0400 07/21 1600 07/21 0400 Intake Total 250 250 965 610 600 150 Output Total Balance 250 250 965 610 600 150 Intake, Oral 250 250 965 610 600 150 Patient 176 lb 229 lb 202 lb Weight Weight Bed scale Standing Scale Bed scale Measurement Method Physical Exam: General: Well-developed white male in no acute distress Skin: No rash or jaundice HEENT: Conjunctivae pale, sclerae anicteric, mucous membranes moist Neck: Without masses or thyromegaly, no supraclavicular or cervical adenopathy Chest: Clear to P & A Heart: Regular rate and rhythm without S3 or rub Abdomen: Obese, soft and nontender without palpable masses or organomegaly Extremities: Without cyanosis or edema, left lower arm AVF patent Neuro: No focal findings, no asterixis or myoclonus Current Medications: Current Medications Sig/Grace Start time Last Medication Dose Route Stop Time Status Admin Acetaminophen 325 MG Q6-PRN PRN 04/09 2245 AC 06/17 PO 2349 Albuterol Sulfate 2 PUF Q4P PRN 04/09 2300 AC 06/13 INH 2001 Aripiprazole 400 MG Q30D 04/24 0900 AC 07/23 IM 1323 Aspirin Buffered 81 MG 0800 04/10 0800 AC 07/23 PO 0700 Atorvastatin Calcium 40 MG 1700 04/10 1700 AC 07/22 PO 1612 Benzocaine 1 GAVIN 4 TIMES/DAY PRN 06/14 1130 AC TOP Benztropine Mesylate 0.5 MG BID 04/10 1000 AC 07/23 PO 1309 Cinacalcet 60 MG DAILY 05/18 1000 AC 07/23 PO 1310 Furosemide 80 MG 0800,2200 04/10 0800 AC 07/23 PO 0700 Gabapentin 300 MG AT BEDTIME 04/10 0215 AC 07/22 PO 2114 Hydralazine HCl 20 MG TID 05/08 1100 AC 07/23 PO 1316 Labetalol HCl 100 MG BID 04/10 1000 AC 07/23 PO 1322 Lactobacillus 1 CAP BID 05/24 2200 AC 07/23 Acidophilus PO 1309 Lamotrigine 150 MG DAILY 04/22 1000 AC 07/23 PO 1312 Lidocaine 15 ML TID PRN 06/14 1130 AC 06/14 PO 1414 Multivitamins 1 TAB 1000 04/10 1000 AC 07/23 PO 1309 Omeprazole 40 MG DAILY AC 04/20 1325 AC 07/23 PO 0605 Oxcarbazepine 600 MG BID 04/10 1000 AC 07/23 PO 1306 Propranolol HCl 10 MG BID 04/10 1000 AC 07/23 PO 1322 Quetiapine Fumarate 400 MG AT BEDTIME 04/10 021 AC 07/22 PO 2114 Sevelamer Carbonate 2,400 MG TIDAC 04/10 0800 AC 07/23 PO 1329 Sodium Polystyrene 60 ML QMON 05/21 0700 AC 07/23 Sulfonate PO 0409 Sodium Polystyrene 60 ML QSUN 05/20 0700 AC 07/22 Sulfonate PO 0511 Tiotropium [place] 1 PUF DAILY 04/10 1000 AC 07/23 INH 1311 Results Pertinent Lab Results: Laboratory Tests 07/23 0800 Chemistry Sodium (137 - 145 mmol/L) 141 Potassium (3.5 - 5.1 mmol/L) 5.0 Chloride (98 - 107 mmol/L) 97 L Carbon Dioxide (22 - 30 mmol/L) 22 Anion Gap (5 - 16) 21 H BUN (9 - 20 mg/dL) 83 H Creatinine (0.7 - 1.2 mg/dL) 11.2 *H Estimated GFR (>60 ml/min) 5 L BUN/Creatinine Ratio (7 - 25 %) 7.4 Calcium (8.4 - 10.2 mg/dL) 8.4 Hematology CBC w Diff NO MAN DIFF REQ WBC (4.8 - 10.8 /CUMM) 7.1 RBC (4.70 - 6.10 /CUMM) 4.34 L Hgb (14.0 - 18.0 G/DL) 12.4 L Hct (42 - 52 %) 38.0 L MCV (80.0 - 94.0 FL) 87.6 MCH (27.0 - 31.0 PG) 28.6 MCHC (33.0 - 37.0 G/DL) 32.7 L RDW (11.5 - 14.5 %) 16.8 H Plt Count (130 - 400 /CUMM) 325 MPV (7.4 - 10.4 FL) 7.7 Gran % (42.2 - 75.2 %) 65.4 Lymphocytes % (20.5 - 51.1 %) 19.0 L Monocytes % (1.7 - 9.3 %) 8.0 Eosinophils % (0 - 5 %) 6.8 H Basophils % (0.0 - 2.0 %) 0.8 Absolute Granulocytes (1.4 - 6.5 /CUMM) 4.6 Absolute Lymphocytes (1.2 - 3.4 /CUMM) 1.3 Absolute Monocytes (0.10 - 0.60 /CUMM) 0.6 Absolute Eosinophils (0.0 - 0.7 /CUMM) 0.5 Absolute Basophils (0.0 - 0.2 /CUMM) 0.1
[2017-07-23 14:53] VITALS: BP 108/76
[2017-07-23 17:45] VITALS: BP 118/70
== END 2017-07-23 18:18 | disposition home health service (06) | DRG 811 ==
LOC: ERH 18:31 → ERHI 22:30 → 2NB 22:30 → 1NO 22:30 → ENRESERV 04-10 11:30 → ENTRNSPT 04-10 12:30 → EDTRNSPTSTS 04-10 12:53 → EDTRNSPT 04-10 12:56 → 1NO 04-10 13:11 → CMPTRNSPT 04-10 13:13 → 2NB 04-16 13:01 → ENPENDDIS 07-23 11:18 → 2NB 07-23 18:18
PROVIDERS: Dermatology; Emergency Medicine; Internal Medicine; Internal Medicine Interventional Cardiology; Internal Medicine Nephrology; Nurse Practitioner Family; Radiology Vascular & Interventional Radiology; Student in an Organized Health Care Education/Training Program
PROC: 30233N1 Transfusion of Nonautologous Red Blood Cells into Peripheral Vein, Percutaneous Approach (ICD-10-PCS; 2017-04-10)
PROC: 5A1D70Z Performance of Urinary Filtration, Intermittent, Less than 6 Hours Per Day (ICD-10-PCS; 2017-04-10)
PROC: 0DJ08ZZ Inspection of Upper Intestinal Tract, Via Natural or Artificial Opening Endoscopic (ICD-10-PCS; principal; 2017-04-16)
PROC: 0DJD8ZZ Inspection of Lower Intestinal Tract, Via Natural or Artificial Opening Endoscopic (ICD-10-PCS; principal; 2017-04-16)
DX: D62 Acute posthemorrhagic anemia (principal); N18.6 End stage renal disease; I13.2 Hypertensive heart and chronic kidney disease with heart failure and with stage 5 chronic kidney disease, or end stage renal disease; E23.0 Hypopituitarism; E87.5 Hyperkalemia; I50.22 Chronic systolic (congestive) heart failure; K92.2 Gastrointestinal hemorrhage, unspecified; G62.9 Polyneuropathy, unspecified; Z99.2 Dependence on renal dialysis; E78.5 Hyperlipidemia, unspecified; J44.9 Chronic obstructive pulmonary disease, unspecified; D63.1 Anemia in chronic kidney disease; F31.9 Bipolar disorder, unspecified; E21.3 Hyperparathyroidism, unspecified; R00.0 Tachycardia, unspecified; K64.8 Other hemorrhoids; K64.4 Residual hemorrhoidal skin tags; R07.89 Other chest pain; K21.9 Gastro-esophageal reflux disease without esophagitis; Z75.1 Person awaiting admission to adequate facility elsewhere; I25.10 Atherosclerotic heart disease of native coronary artery without angina pectoris; G40.909 Epilepsy, unspecified, not intractable, without status epilepticus; Z91.030 Bee allergy status; Z88.8 Allergy status to other drugs, medicaments and biological substances; Z87.891 Personal history of nicotine dependence
CPT/HCPCS: 1NSP; 2NBP; ERO; 36415; 74176; 80307; 82436; 83010; 83625; 86920; 93005; 93010; 99291; J0131; J0401; J0885; J1630; J1885; J3490; P9016

== ENCOUNTER 2017-08-20 22:40 | Inpatient (IN) | payer OTHER, MEDICARE ==
[~2017-08-20] VITALS: Ht 177.8 cm; Wt 108.9 kg
--- NOTE | 2017-08-20 22:44 | ED AMS/SEIZURE/WEAK/DIZZY ---
History of Present Illness General Chief Complaint: Altered Mental Status Stated Complaint: BIBA AMS Source: patient Exam Limitations: clinical condition Vital Signs & Intake/Output Vital Signs & Intake/Output Vital Signs Date Time Temp Pulse Resp B/P B/P Pulse O2 O2 Flow FiO2 Mean Ox Delivery Rate 08/21 0034 85 18 180/90 97 Room Air 08/20 2309 100 16 98 Room Air Room Air ED Intake and Output 08/21 0000 08/20 1200 Intake Total 0 Output Total Balance 0 Intake, Oral 0 Allergies Coded Allergies: chlorpromazine (From THORAZINE) (Severe, ANAPHYLAXIS 08/20/17) trifluoperazine (From STELAZINE) (Severe, ANAPHYLAXIS 08/20/17) lithium (PER PT "KILLED MY KIDNEYS" 08/20/17) venom-honey bee (BEE VENOM (HONEY BEE)) (UNKNOWN 08/20/17) Reconcile Medications Albuterol Sulfate (Ventolin Hfa) 90 MCG HFA.AER.AD 1 INHAL INH Q4P PRN asthma Aripiprazole (Abilify Maintena) 400 MG SUSER.VIAL 400 MG IM Q30D ANXIETY ( Reported) Aspirin (Ecotrin*) 81 MG TABLET.DR 1 TAB PO 0800 cardiac prohylaxis Atorvastatin Calcium 40 MG TABLET 1 CAP PO 1700 HYPERCHOLESTEROLEMIA Benztropine Mesylate 0.5 MG TABLET 1 TAB PO BID EPSE (Reported) Cinacalcet HCl (Sensipar) 30 MG TABLET 1 TAB PO DAILY dialysis Epoetin Florentino (Procrit) 3,000 UNIT/ML VIAL 3,000 UNIT IV TuThSa anemia Furosemide (Lasix) 40 MG TABLET 2 TAB PO 0800,2200 DIURETIC Gabapentin 300 MG CAPSULE 1 TAB PO AT BEDTIME insomnia Hydralazine HCl 10 MG TABLET 2 TAB PO BID htn Labetalol HCl 100 MG TABLET 1 TAB PO BID htn Lamotrigine (Lamictal) 150 MG TABLET 1 TAB PO DAILY THYMOLEPTIC Nephro-Vitamins (Nephro-Tara Tablet) 0.8 MG TABLET 1 TAB PO 1000 supplement Nitroglycerin (Nitroglycerin Patch) 0.4 MG/HOUR PATCH.TD24 1 PAT TOP DAILY NEEDED PRN CHEST PAIN Oxcarbazepine (Trileptal) 150 MG TABLET 4 TAB PO BID mood stabilizer Propranolol HCl 10 MG TABLET 1 TAB PO BID htn Quetiapine Fumarate 100 MG TABLET 4 TAB PO AT BEDTIME mood stabilizer Sevelamer Carbonate (Renvela) 800 MG TABLET 3 TAB PO TIDAC DIALYSIS Sevelamer Carbonate (Renvela) 800 MG TABLET 2 TAB PO Q4P PRN dialysis Tiotropium [place] (Spiriva) 18 MCG CAP.W.DEV 1 INHAL INH DAILY copd Triage Nurses Notes Reviewed? yes Onset: Gradual Duration: day(s): Timing: recent history Injury Environment: home Severity: mild, moderate Modifying Factors: Improves With: rest. Associated Symptoms: increased confusion HPI: 62 yo gentleman h/o esrd on hemodialysis presents to the ED with mental status change and increased confusion. Per the medics, "His neighbors called because they hadn't seen him in a few days.... We found him in his recliner... He was awake and confused, a little anxious... but the house was clean." The patient states that he is uncertain why he missed dialysis. He does not recall the last time he had dialysis. He notes that he has not been taking his medications lately. He denies drugs or etoh abuse. He denies trauma. He is otherwise well. Past History Medical History Any Pertinent Medical History? 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 History of MRSA: No History of VRE: No History of CDIFF: No Influenza Vaccine: 01/29/17 Surgical History Surgical History: Lt. AV fistula Psychosocial History Who do you live with Brother Services at Home None What is your primary language Bhutanese Family History Family History, If Any: FATHER (hypertension). ; Cause: Renal cell cancer. BROTHER (GB stone, bipolar disorder, premature coronary artery disease). Hx Contributory? No Review of Systems Review of Systems Constitutional: Reports: no symptoms. EENTM: Reports: no symptoms. Respiratory: Reports: no symptoms. Cardiovascular: Reports: no symptoms. GI: Reports: no symptoms. Genitourinary: Reports: no symptoms. Musculoskeletal: Reports: no symptoms. Skin: Reports: no symptoms. Neurological/Psychological: Reports: no symptoms. Hematologic/Endocrine: Reports: no symptoms. Immunologic/Allergic: Reports: no symptoms. All Other Systems: Reviewed and Negative Physical Exam Physical Exam General Appearance: well developed/nourished, anxious, mild distress Head: atraumatic, normal appearance Eyes: Bilateral: normal appearance. Ears, Nose, Throat: normal pharynx, normal ENT inspection Neck: normal inspection, supple, full range of motion Respiratory: normal breath sounds, chest non-tender, no respiratory distress, quiet respiration, lungs clear Cardiovascular: regular rate/rhythm Gastrointestinal: normal bowel sounds, soft, non-tender Back: normal inspection, normal range of motion Extremities: left arm with thrill palpable at AV fistula. no sign of infection Neurologic/Psych: no motor/sensory deficits, awake, alert, oriented x person, place, not date. also spontaneously recognized this ED physician. Skin: intact, normal color Core Measures ACS in differential dx? No CVA/TIA Diagnosis No Sepsis Present: No Sepsis Focused Exam Completed? No Progress Differential Diagnosis: alcohol intoxication, CVA/stroke, dehydration, electrolyte imbalance, hypoglycemia, intracranial Hem. Plan of Care: Orders Procedure Date/time Status Renal Dialysis Diet 08/21 B Active PARTIAL THROMBOPLASTIN TIME 08/21 0600 Active PROTHROMBIN TIME 08/21 0600 Active CBC WITHOUT DIFFERENTIAL 08/21 0600 Active BASIC ELECTROLYTES PLUS BUN&CR 08/21 0600 Active Patient Data 08/21 0133 Active Saline Lock 08/21 0114 Active Misc Message 08/21 0114 Active ED Holding Orders 08/21 0114 Active Admit to inpatient 08/21 0114 Active Vital Signs 08/21 0114 Active Code Status 08/21 0114 Active Intake & Output 08/20 2309 Active TROPONIN LEVEL 08/21 2243 Complete PROLACTIN 08/21 2243 Complete LIPASE 08/21 2243 Complete HEPATIC FUNCTION PANEL 08/20 224 Complete ETHANOL 08/21 2243 Complete CBC WITHOUT DIFFERENTIAL 08/21 2243 Complete BASIC METABOLIC PANEL 08/21 2243 Complete AMYLASE 08/21 2243 Complete EKG 08/20 2240 Active Laboratory Tests 08/20/17 2300: Anion Gap 24 H, Estimated GFR 4 L, BUN/Creatinine Ratio 4.9 L, Glucose 104 H , Calcium 9.1, Total Bilirubin 1.1, Direct Bilirubin 1.1 H, AST 27, ALT 23, Alkaline Phosphatase 594 H, Troponin I 0.04, Total Protein 8.3 H, Albumin 5.2 H, Amylase 121 H, Lipase 353 H, Prolactin 8.3, CBC w Diff NO MAN DIFF REQ, RBC 4.30 L, MCV 87.5, MCH 28.6, MCHC 32.6 L, RDW 16.0 H, MPV 7.9, Gran % 61.3, Lymphocytes % 26.3, Monocytes % 9.0, Eosinophils % 3.0, Basophils % 0.4, Absolute Granulocytes 6.2, Absolute Lymphocytes 2.7, Absolute Monocytes 0.9 H, Absolute Eosinophils 0.3, Absolute Basophils 0, Serum Alcohol < 10.0 Diagnostic Imaging: Viewed by Me: Radiology Read, CT Scan. Discussed w/RAD: Radiology Read, CT Scan. Radiology Impression: PATIENT: PURA DONALDSON PRESENT AGE: 62 PATIENT ACCOUNT NO: [id number] : 57 LOCATION: [facility] ORDERING PHYSICIAN: Hu Bradford MD SERVICE DATE: 08/20/17 EXAM TYPE: CAT - CT HEAD WO IV CONTRAST EXAMINATION: CT HEAD WITHOUT CONTRAST CLINICAL INFORMATION: Mental status change. COMPARISON: CT head 02/15/2017 TECHNIQUE: Contiguous axial imaging was performed from the skull base to vertex without intravenous administration of contrast. DLP: 620.91 mGy-cm FINDINGS: There is no evidence of acute intracranial hemorrhage or territorial infarction. No abnormal mass effect or midline shift is seen. Lozada to white matter differentiation is well preserved. No extra-axial fluid collections are identified. There is vascular wall calcification of the internal carotid arteries bilaterally. The ventricles are normal in size. There is no abnormal attenuation within the brain parenchyma. The osseous structures and soft tissues are normal. Sinus mucosal thickening in the right sphenoid sinus is nearly opacifying the sinus. The mastoid air cells and middle ear cavities are normally aerated. IMPRESSION: No acute intracranial pathology. DICTATED BY: Binh Carrillo MD DATE/TIME DICTATED:2309 MACHINIST GENERAL:IZABEL DATE/TIME TRANSCRIBED:04/23/18 / 2310 CONFIDENTIAL, DO NOT COPY WITHOUT APPROPRIATE AUTHORIZATION. <Electronically signed in Other Vendor System> SIGNED BY: Binh Carrillo MD 08/20/172314 CXR Impression: PATIENT: PURA DONALDSON PRESENT AGE: 62 PATIENT ACCOUNT NO: [id number] : 57 LOCATION: [facility] ORDERING PHYSICIAN: Hu Bradford MD SERVICE DATE: 08/20/17 EXAM TYPE: RAD - XRY- PORTABLE CHEST XRAY EXAMINATION: XR PORTABLE CHEST CLINICAL INFORMATION: Chest pain COMPARISON: Chest x-ray 04/09/2017 TECHNIQUE: Portable frontal view of the chest was obtained. 10:42 PM FINDINGS: No significant abnormality is noted involving the heart, lungs, mediastinum, bony thorax or soft tissues. IMPRESSION : No acute abnormality the chest. DICTATED BY: Binh Carrillo MD DATE/TIME DICTATED:08/20/172305 MACHINIST GENERAL:IZABEL DATE/TIME TRANSCRIBED:2305 CONFIDENTIAL, DO NOT COPY WITHOUT APPROPRIATE AUTHORIZATION. < Electronically signed in Other Vendor System> SIGNED BY: Binh Carrillo MD 2309 Initial ED EKG: left anterior fasicular block. nsr, no acute change from prior. Departure Departure Disposition: STILL A PATIENT Condition: Stable Clinical Impression Primary Impression: Mental status change Secondary Impressions: ESRD (end stage renal disease) on dialysis, Failure to thrive Referrals: Ashok Durand MD (PCP/Family) Departure Forms: Customer Survey General Discharge Information Comments discussed with case management... pt on Admission Note Spoke With: Ashok Durand MD Documentation of Exam: Documentation of any treatments & extenuating circumstances including Concerns Regarding Discharge (functional status, medication knowledge or non-compliance, living conditions, etc.) that warrant an admission rather than observation: Pt unable to care for self, has missed dialysis, next dialysis is in 2 days... pt merits admission for dialysis, case management... permanent placement?
--- NOTE | 2017-08-20 23:10 | RADIOLOGY REPORT ---
EXAMINATION: XR PORTABLE CHEST CLINICAL INFORMATION: Chest pain COMPARISON: Chest x-ray 04/09/2017 TECHNIQUE: Portable frontal view of the chest was obtained. 10:42 PM FINDINGS: No significant abnormality is noted involving the heart, lungs, mediastinum, bony thorax or soft tissues. IMPRESSION: No acute abnormality the chest.
--- NOTE | 2017-08-20 23:15 | CT SCAN REPORT ---
EXAMINATION: CT HEAD WITHOUT CONTRAST CLINICAL INFORMATION: Mental status change. COMPARISON: CT head 02/15/2017 TECHNIQUE: Contiguous axial imaging was performed from the skull base to vertex without intravenous administration of contrast. DLP: 620.91 mGy-cm FINDINGS: There is no evidence of acute intracranial hemorrhage or territorial infarction. No abnormal mass effect or midline shift is seen. Lozada to white matter differentiation is well preserved. No extra-axial fluid collections are identified. There is vascular wall calcification of the internal carotid arteries bilaterally. The ventricles are normal in size. There is no abnormal attenuation within the brain parenchyma. The osseous structures and soft tissues are normal. Sinus mucosal thickening in the right sphenoid sinus is nearly opacifying the sinus. The mastoid air cells and middle ear cavities are normally aerated. IMPRESSION: No acute intracranial pathology.
[2017-08-20 23:16] LABS: ABSOLUTE BASOPHIL COUNT 0 /CUMM (0.0-0.2); ABSOLUTE EOSINOPHIL COUNT 0.3 /CUMM (0.0-0.7); ABSOLUTE GRANULOCYTE CT 6.2 /CUMM (1.4-6.5); ABSOLUTE LYMPH COUNT 2.7 /CUMM (1.2-3.4); ABSOLUTE MONOCYTE COUNT 0.9 /CUMM (0.10-0.60); BASOPHIL % 0.4 % (0.0-2.0); GRANULOCYTE % 61.3 % (42.2-75.2); HEMATOCRIT 37.6 % (42-52); MEAN CORPUSCULAR HGB 28.6 PG (27.0-31.0); MEAN CORPUSCULAR HGB CONC 32.6 G/DL (33.0-37.0); MEAN CORPUSCULAR VOLUME 87.5 FL (80.0-94.0); MEAN PLATELET VOLUME 7.9 FL (7.4-10.4); PLATELET COUNT 314 /CUMM (130-400); WHITE BLOOD CELL COUNT 10.1 /CUMM (4.8-10.8)
[2017-08-21] VITALS (7 sets, daily range): BP systolic 130–190; BP diastolic 76–110
--- NOTE | 2017-08-21 01:52 | History & Physical ---
See Addendum General Information and HPI MD Statement: I have seen and personally examined PURA DONALDSON and documented this H&P. The patient is a 62 year old M who presented with a patient stated chief complaint of [AMS]. Source of Information: patient Exam Limitations: confusion History of Present Illness: 61 yo male with past medical history of ESRD on dialysis, CHF ef 45-50%, hypertension, hyperlipidemia, bipolar disorder, status post recent cardiac catheter and stents at [facility] in February 2017, cardiac arrest while in the catheter lab requiring ICU stay, hospital stay 3 months for acute blood loss anemia and CHF exacerbation and dialysis, was discharged about 1 months ago came to the ambulance with chief complaint of altered mental status. According to the information from ED staff patient was not seen by neighbors for couple of days and missed his dialysis appointment(MWF). Upon questioning the patient he doesn't remember when as the last time he had dialysis, or what is is doing at his home. However he does remember that he saw Dr. Durand last week and he does remember in taking his pills. Patient walks without any licensed nursing assistant and apparently has a visiting nurse. Denies any chest pain, nausea, vomiting, abdominal pain, fevers, chills, diarrhea, constipation, fall. Patient is alert and oriented 2, does not remember the president name or the months. He is alert to himself and place. Apparently patient has a conservator but he does not remember his name. A call was made to patient's brother but nobody answered. Vital signs in ED where notable for elevated blood pressure, no fevers, O2 saturation good on room air Labs are notable for hemoglobin 12.3, creatinine 12, anion gap 24, chloride 96, potassium 4.5, direct bilirubin 1.5, ALP 594, amylase 121, lipase 353, prolactin 8.[address] and chest x-ray did not show any acute pathology EKG showed mild sinus tachycardia 101, no ST-T elevations, PACs, Allergies/Medications Allergies: Coded Allergies: chlorpromazine (From THORAZINE) (Severe, ANAPHYLAXIS 08/20/17) trifluoperazine (From STELAZINE) (Severe, ANAPHYLAXIS 08/20/17) lithium (PER PT "KILLED MY KIDNEYS" 08/20/17) venom-honey bee (BEE VENOM (HONEY BEE)) (UNKNOWN 08/20/17) Home Med list Albuterol Sulfate (Ventolin Hfa) 90 MCG HFA.AER.AD 1 INHAL INH Q4P PRN asthma Aripiprazole (Abilify Maintena) 400 MG SUSER.VIAL 400 MG IM Q30D ANXIETY ( Reported) Aspirin (Ecotrin*) 81 MG TABLET.DR 1 TAB PO 0800 cardiac prohylaxis Atorvastatin Calcium 40 MG TABLET 1 CAP PO 1700 HYPERCHOLESTEROLEMIA Benztropine Mesylate 0.5 MG TABLET 1 TAB PO BID EPSE (Reported) Cinacalcet HCl (Sensipar) 30 MG TABLET 1 TAB PO DAILY dialysis Epoetin Florent[place] (Procrit) 3,000 UNIT/ML VIAL 3,000 UNIT IV TuThSa anemia Furosemide (Lasix) 40 MG TABLET 2 TAB PO 0800,2200 DIURETIC Gabapentin 300 MG CAPSULE 1 TAB PO AT BEDTIME insomnia Hydralazine HCl 10 MG TABLET 2 TAB PO BID htn Labetalol HCl 100 MG TABLET 1 TAB PO BID htn Lamotrigine (Lamictal) 150 MG TABLET 1 TAB PO DAILY THYMOLEPTIC Nephro-Vitamins (Nephro-Tara Tablet) 0.8 MG TABLET 1 TAB PO 1000 supplement Nitroglycerin (Nitroglycerin Patch) 0.4 MG/HOUR PATCH.TD24 1 PAT TOP DAILY NEEDED PRN CHEST PAIN Oxcarbazepine (Trileptal) 150 MG TABLET 4 TAB PO BID mood stabilizer Propranolol HCl 10 MG TABLET 1 TAB PO BID htn Quetiapine Fumarate 100 MG TABLET 4 TAB PO AT BEDTIME mood stabilizer Sevelamer Carbonate (Renvela) 800 MG TABLET 3 TAB PO TIDAC DIALYSIS Sevelamer Carbonate (Renvela) 800 MG TABLET 2 TAB PO Q4P PRN dialysis Tiotropium [place] (Spiriva) 18 MCG CAP.W.DEV 1 INHAL INH DAILY copd Past History Travel History Traveled to [place] past 21 day No Medical History Neurological: SEIZURE ONCE 20 YRS AGO EENT: NONE Cardiovascular: hypertension, hyperlipidemia Respiratory: asthma, COPD Gastrointestinal: NONE Hepatic: NONE Renal: ESRD on HD, 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 History of MRSA: No History of VRE: No History of CDIFF: No Influenza Vaccine: 01/29/17 Surgical History Surgical History: Lt. AV fistula Past Family/Social History Family History Relations & Conditions if any FATHER (hypertension). ; Cause: Renal cell cancer. BROTHER (GB stone, bipolar disorder, premature coronary artery disease). Psychosocial History Services at Home: None Primary Language: Sri Lankan Functional Ability ADLs Independent: dressing, eating, toileting, bathing. Ambulation: independent Review of Systems Review of Systems Constitutional: Reports: see HPI. Exam & Diagnostic Data Last 24 Hrs of Vital Signs/I&O Vital Signs Date Time Temp Pulse Resp B/P B/P Pulse O2 O2 Flow FiO2 Mean Ox Delivery Rate 08/24 2245 99.2 104 20 122/60 96 Room Air 08/24 2217 104 122/60 08/24 1408 98.5 107 20 115/60 95 Room Air 08/24 1348 98.3 94 18 116/68 08/24 1347 98.3 94 18 116/68 08/24 1347 98.3 94 18 116/68 08/24 0822 Room Air Room Air 08/24 0620 98.3 94 18 116 95 Room Air Intake & Output 08/25 0800 08/25 0000 08/24 1600 Intake Total 490 800 Output Total 1100 Balance 490 -300 Intake, IV 10 Intake, Oral 480 800 Output, 1100 Dialysate Physical Exam General Appearance Alert, Cooperative, No Acute Distress Cardiovascular Regular Rate, Normal S1, Normal S2 Lungs Clear to Auscultation, Normal Air Movement Abdomen Normal Bowel Sounds, Soft, No Tenderness Neurological Strength at 5/5 X4 Ext, repetitive movement of of the both feet Extremities No Edema Assessment/Plan Assessment: 61 yo male with past medical history of ESRD on dialysis, CHF ef 45-50%, hypertension, hyperlipidemia, bipolar disorder, status post recent cardiac catheter and stents at [facility] in February 2017, cardiac arrest while in the catheter lab requiring ICU stay, hospital stay 3 months for acute blood loss anemia and CHF exacerbation and dialysis, was discharged about 1 months ago came to the ambulance with chief complaint of altered mental status. Denies any chest pain, nausea, vomiting, abdominal pain, fevers, chills, diarrhea, constipation, fall. He is alert to himself and place. Apparently patient has a conservator but he does not remember his name. A call was made to patient's brother but nobody answered. Vital signs in ED where notable for elevated blood pressure, no fevers, O2 saturation good on room air Labs are notable for hemoglobin 12.3, creatinine 12, anion gap 24, chloride 96, potassium 4.5, direct bilirubin 1.5, ALP 594, amylase 121, lipase 353, prolactin 8.[address] and chest x-ray did not show any acute pathology EKG showed mild sinus tachycardia 101, no ST-T elevations, PACs, Assessment Altered mental status most likely due to uremia History of ESRD on dialysis History of hypertension here History of cardiac arrest History of hyperlipidemia History of bipolar History of CHF History of COPD Elevated amylase and lipase and alkaline phosphatase Plan Admit to general floor TRC nebs ,ABG Psychiatric consultation for medication management, hold Abilify and Seroquel and continue Lamictal and oxycarbamazepine Check urine tox and urine, TSH, T4, total T3, folate, B12 Check ammonia, elevated amylase and lipase on most likely due to ESRD Nephrology consult placed for dialysis for the morning Check PTH and vitamin D Continue home medications for hypertension, ESRD Patient is on injection form of abilify . Please touch base with the PCP to see if when is his next dose Discussion with conservator should be made in the morning Continue Lasix, aspirin Full code per patient request, renal dialysis diet, DVT prophylaxis mechanical and subcutaneous heparin, Tylenol for pain As Ranked By This Provider Problem List: 1. Bipolar 1 disorder with moderate jazmin 2. Essential hypertension 3. Renal failure Core Measures/Misc (01/14) Acute Coronary Syndrome ACS Diagnosis: No Congestive Heart Failure Congestive Heart Failure Diagnosis No Cerebrovascular Accident CVA/TIA Diagnosis: No VTE (View Protocol) VTE Risk Factors Age>40 No Mechanical VTE Prophylaxis d/t N/A MechProphylax Ordered No VTE Pharm Prophylaxis d/t NA PharmProphylax ordered Sepsis (View protocol) Sepsis Present: No
[2017-08-21 09:14] LABS: PTT 38 SEC (25-37)
[2017-08-21 09:21] LABS: ABSOLUTE BASOPHIL COUNT 0.1 /CUMM (0.0-0.2); ABSOLUTE EOSINOPHIL COUNT 0.2 /CUMM (0.0-0.7); ABSOLUTE GRANULOCYTE CT 5.1 /CUMM (1.4-6.5); ABSOLUTE LYMPH COUNT 1.5 /CUMM (1.2-3.4); ABSOLUTE MONOCYTE COUNT 0.6 /CUMM (0.10-0.60); BASOPHIL % 0.7 % (0.0-2.0); EOSINOPHIL % 3.1 % (0-5); GRANULOCYTE % 68.1 % (42.2-75.2); MEAN CORPUSCULAR HGB CONC 33.3 G/DL (33.0-37.0); MEAN CORPUSCULAR VOLUME 87.2 FL (80.0-94.0); MEAN PLATELET VOLUME 7.9 FL (7.4-10.4); PLATELET COUNT 290 /CUMM (130-400); RBC DISTRIBUTION WIDTH 15.9 % (11.5-14.5); RED BLOOD CELL CT 4.13 /CUMM (4.70-6.10); WHITE BLOOD CELL COUNT 7.5 /CUMM (4.8-10.8)
--- NOTE | 2017-08-21 10:13 | Admission Certification ---
Admission Certification Certification Statement - As attending physician, I certify that at the time of - admission, based on clinical presentation, severity of - symptoms, need for further diagnostic testing and - therapeutic interventions, and risk of adverse outcomes - without in-hospital treatment, in my clinical assessment, - this patient requires an acute hospital stay for a minimum - of two nights or longer. I have also considered psychsocial - factors such as support system, advanced age, financial - issues, cognitive issues, and failed out-patient treatments, - past re-admission history, safety of patient, and lack of - compliance as applicable. Specific rationale supporting this admission is: Change in mental status and noncompliance with his medications and treatments, chronic kidney insufficiency on hemodialysis
--- NOTE | 2017-08-21 10:17 | PN- Att Addend ---
Attending Addendum Attending Brief Note 62-year-old white male history of bipolar disease, chronic kidney insufficiency on hemodialysis history of congestive heart failure. Had a long hospital admission was discharged in stable condition to be followed by the visiting nurses to have his hemodialysis treatment times a week follow with psychiatry saw him once approximately 2 weeks ago in stable condition. Since then apparently missing appointments with psychiatry and getting confused about his hemodialysis. Then he gets confused. Patient came to the emergency room. Was admitted will get his hemodialysis in the hospital, will have psychiatry reevaluate his medications. And will have case management reviewed the case to see what's the safest disposition plans. Current Medications Sig/Grace Start time Last Medication Dose Route Stop Time Status Admin Acetaminophen 650 MG Q6P PRN 08/21 0600 AC PO Aspirin Buffered 81 MG 0800 08/21 0800 AC 08/21 PO 0815 Atorvastatin Calcium 40 MG 1700 08/21 1700 AC PO Benztropine Mesylate 0.5 MG BID 08/21 0900 AC 08/21 PO 0817 Cinacalcet 30 MG DAILY 08/21 0900 AC 08/21 PO 0817 Furosemide 80 MG 0800,2200 08/21 0800 AC 08/21 PO 0815 Gabapentin 300 MG AT BEDTIME 08/21 2100 AC PO Heparin Sodium 5,000 UNIT Q8 08/21 0600 AC 08/21 (Porcine) PA 0439 Hydralazine HCl 20 MG BID 08/21 0900 AC 08/21 PO 0856 Hydralazine HCl 10 MG ONCE ONE 08/21 0300 DC 08/21 PO 08/21 0301 0438 Labetalol HCl 100 MG BID 08/21 0900 AC 08/21 PO 0856 Labetalol HCl 100 MG ONCE ONE 08/21 0300 DC 08/21 PO 08/21 0301 0438 Lamotrigine 150 MG DAILY 08/21 0900 AC 08/21 PO 0817 Multivitamins 1 TAB 1000 08/21 1000 AC 08/21 PO 0817 Nitroglycerin 0.4 MG DAILY NEEDED PRN 08/21 0300 AC TOP Oxcarbazepine 600 MG BID 08/21 0900 AC 08/21 PO 0817 Propranolol HCl 10 MG BID 08/21 0900 AC 08/21 PO 0816 Sevelamer Carbonate 2,400 MG TIDAC 08/21 0800 AC 08/21 PO 0815 Sevelamer Carbonate 1,600 MG Q4P PRN 08/21 0300 AC PO Tiotropium [place] 1 PUF DAILY 08/21 0900 AC 08/21 INH 0819 Laboratory Tests 08/21/17 0830: Anion Gap 22 H, Estimated GFR 4 L, BUN/Creatinine Ratio 5.3 L, Ammonia 11, Vitamin B12 Pending, 25-OH Vitamin D Total Pending, Folate Pending, TSH 0.774, Free T4 0.58 L, Total T3 1.02, PTH Intact Pending, PT 13.0 H, INR 1.19 H, APTT 38 H, CBC w Diff NO MAN DIFF REQ, RBC 4.13 L, MCV 87.2, MCH 29.0, MCHC 33.3, RDW 15.9 H, MPV 7.9, Gran % 68.1, Lymphocytes % 19.5 L, Monocytes % 8.6, Eosinophils % 3.1, Basophils % 0.7, Absolute Granulocytes 5.1, Absolute Lymphocytes 1.5, Absolute Monocytes 0.6, Absolute Eosinophils 0.2, Absolute Basophils 0.1 08/21/17 0430: pH 7.42, pCO2 36, pO2 90, HCO3 23, ABG O2 Sat (Measured) 96.0, P-50 (Temp Corrected) N, Carboxyhemoglobin 0.4 L, O2 Concentration % RA, Phlebotomy Draw Site RIGHT RADIAL 08/20/17 2300: Anion Gap 24 H, Estimated GFR 4 L, BUN/Creatinine Ratio 4.9 L, Glucose 104 H , Calcium 9.1, Total Bilirubin 1.1, Direct Bilirubin 1.1 H, AST 27, ALT 23, Alkaline Phosphatase 594 H, Troponin I 0.04, Total Protein 8.3 H, Albumin 5.2 H, Amylase 121 H, Lipase 353 H, Prolactin 8.3, CBC w Diff NO MAN DIFF REQ, RBC 4.30 L, MCV 87.5, MCH 28.6, MCHC 32.6 L, RDW 16.0 H, MPV 7.9, Gran % 61.3, Lymphocytes % 26.3, Monocytes % 9.0, Eosinophils % 3.0, Basophils % 0.4, Absolute Granulocytes 6.2, Absolute Lymphocytes 2.7, Absolute Monocytes 0.9 H, Absolute Eosinophils 0.3, Absolute Basophils 0, Serum Alcohol < 10.0 Vital Signs Date Time Temp Pulse Resp B/P B/P Pulse O2 O2 Flow FiO2 Mean Ox Delivery Rate 08/21 0856 188/100 08/21 0856 188/100 08/21 0816 188/100 08/21 0654 98.3 98 20 170/100 97 Room Air 08/21 0438 84 190/110 08/21 0438 84 190/110 08/21 0249 190/110 08/21 0248 97.5 87 20 160/104 97 Room Air
--- NOTE | 2017-08-21 15:58 | Cons- Nephrology ---
General Information and HPI Consulting Request Date of Consult: 08/21/17 Requested By: Ashok Durand MD Reason for Consult: Management of ESRD Source of Information: patient, old records Exam Limitations: poor historian History of Present Illness: The patient is a 62-year-old man well known to our service with bipolar disorder and dialysis-dependent end-stage renal disease who is normally dialyzed at [facility]. He has had multiple admissions here recently for shortness of breath and/or chest pain and/or psychiatric issues. The most recent admission was over 3-1/2 months - admitted mid March 2017 and discharged at the end of June 2017. Since discharge he has gone for his regularly scheduled outpatient dialysis treatments only sporadically and in fact his most treatment recent outpatient treatment at [facility] was on 2017. A wellness check was initiated and he was found confused at home, prompting transfer to the emergency department and subsequent admission. Interestingly, he denies shortness of breath but he has very little memory about what has been happening to him over the past few weeks. There has apparently been no fever or chills, and no recent change in his medications, although I suspect he has been taking his medications only sporadically at best. 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 No apparent history of drug abuse. Allergies/Medications Allergies: Coded Allergies: chlorpromazine (From THORAZINE) (Severe, ANAPHYLAXIS 08/20/17) trifluoperazine (From STELAZINE) (Severe, ANAPHYLAXIS 08/20/17) lithium (PER PT "KILLED MY KIDNEYS" 08/20/17) venom-honey bee (BEE VENOM (HONEY BEE)) (UNKNOWN 08/20/17) Home Med List: Albuterol Sulfate (Ventolin Hfa) 90 MCG HFA.AER.AD 1 INHAL INH Q4P PRN asthma Aripiprazole (Abilify Maintena) 400 MG SUSER.VIAL 400 MG IM Q30D ANXIETY ( Reported) Aspirin (Ecotrin*) 81 MG TABLET.DR 1 TAB PO 0800 cardiac prohylaxis Atorvastatin Calcium 40 MG TABLET 1 CAP PO 1700 HYPERCHOLESTEROLEMIA Benztropine Mesylate 0.5 MG TABLET 1 TAB PO BID EPSE (Reported) Cinacalcet HCl (Sensipar) 30 MG TABLET 1 TAB PO DAILY dialysis Epoetin Florentino (Procrit) 3,000 UNIT/ML VIAL 3,000 UNIT IV TuThSa anemia Furosemide (Lasix) 40 MG TABLET 2 TAB PO 0800,2200 DIURETIC Gabapentin 300 MG CAPSULE 1 TAB PO AT BEDTIME insomnia Hydralazine HCl 10 MG TABLET 2 TAB PO BID htn Labetalol HCl 100 MG TABLET 1 TAB PO BID htn Lamotrigine (Lamictal) 150 MG TABLET 1 TAB PO DAILY THYMOLEPTIC Nephro-Vitamins (Nephro-Tara Tablet) 0.8 MG TABLET 1 TAB PO 1000 supplement Nitroglycerin (Nitroglycerin Patch) 0.4 MG/HOUR PATCH.TD24 1 PAT TOP DAILY NEEDED PRN CHEST PAIN Oxcarbazepine (Trileptal) 150 MG TABLET 4 TAB PO BID mood stabilizer Propranolol HCl 10 MG TABLET 1 TAB PO BID htn Quetiapine Fumarate 100 MG TABLET 4 TAB PO AT BEDTIME mood stabilizer Sevelamer Carbonate (Renvela) 800 MG TABLET 3 TAB PO TIDAC DIALYSIS Sevelamer Carbonate (Renvela) 800 MG TABLET 2 TAB PO Q4P PRN dialysis Tiotropium [place] (Spiriva) 18 MCG CAP.W.DEV 1 INHAL INH DAILY copd Review of Systems Review of Systems: Gen.: Appetite uncertain, there has been weight gain because he has not been going to dialysis Skin: No rash or jaundice HEENT: No visual or hearing disturbances, no discharge Cardiopulmonary: No shortness of breath, cough, chest pain, orthopnea GI: No nausea, vomiting, abdominal pain, diarrhea : No dysuria, hematuria or other symptoms referable to the urinary tract Musculoskeletal: No arthralgias, arthritis, myalgias, weakness Neuro: No weakness, paresthesias; he does admit to recent memory loss and confusion Past History Travel History Traveled to [place] past 21 day No Medical History Blood Transfusion Hx: No Neurological: NONE EENT: NONE Cardiovascular: hypertension, hyperlipidemia Respiratory: asthma, COPD Gastrointestinal: NONE Hepatic: NONE Renal: ESRD on HD, RENAL MASSES Musculoskeletal: NONE Psychiatric: anxiety, bipolar disease (WITH PSYCHOTIC FEATURES), depression Endocrine: hypopituitarism, HYPERPARATHROIDISM Blood Disorders: NONE Cancer(s): NONE 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 Surgical History Surgical History: Lt. AV fistula Family History Relations & Conditions If Any: FATHER (hypertension). ; Cause: Renal cell cancer. BROTHER (GB stone, bipolar disorder, premature coronary artery disease). Psychosocial History Where Do You Live? Home Services at Home: Nursing Primary Language: St Helenian Smoking Status: Former Smoker Functional Ability ADLs Independent: dressing, eating, toileting, bathing. Ambulation: independent Exam & Diagnostic Data Vital Signs and I&O Vital Signs Date Time Temp Pulse Resp B/P B/P Pulse O2 O2 Flow FiO2 Mean Ox Delivery Rate 08/21 1414 98.4 86 20 130/90 96 08/21 1118 168/98 08/21 1045 Room Air Room Air 08/21 0856 188/100 08/21 0856 188/100 08/21 0816 188/100 08/21 0654 98.3 98 20 170/100 97 Room Air 08/21 0438 84 190/110 08/21 0438 84 190/110 08/21 0249 190/110 08/21 0248 97.5 87 20 160/104 97 Room Air 08/21 0210 80 18 158/72 97 Room Air 08/21 0034 85 18 180/90 97 Room Air 08/20 2309 100 16 98 Room Air Room Air Intake & Output 08/21 1600 08/21 0400 08/20 1600 08/20 0400 08/19 1600 08/19 0400 Intake Total 120 0 Output Total Balance 120 0 Intake, Oral 120 0 Patient 205 lb 216 lb Weight Weight Bed scale Measurement Method Physical Exam: General: Well-developed white male in no acute distress Skin: No rash or jaundice HEENT: Conjunctivae pink, sclerae anicteric, mucous membranes moist; there is facial edema Neck: Without masses or thyromegaly, no supraclavicular or cervical adenopathy Chest: Clear to P & A Heart: Regular rate and rhythm without S3 or rub Abdomen: Obese, soft and nontender without palpable masses or organomegaly Extremities: Trace lower extremity edema without cyanosis, left lower arm AVF patent Neuro: He is awake but seems somewhat confused and disoriented, no focal findings, no asterixis or myoclonus Assessment/Plan Assessment/Recommendations Assessment: 62-year-old man with a history of bipolar disorder and dialysis-dependent end- stage renal disease secondary to lithium toxicity, now being admitted with confusion after missing dialysis for the past 2 weeks. He is chronically poorly compliant with his dialysis schedule and is severely under dialyzed with what I expect his uremic encephalopathy superimposed on his chronic psychopathy. He is volume overloaded based on his appearance and weight but has remarkably been able to maintain fairly normal electrolytes. He needs dialysis, reinstitution of his medication regimen, psychiatric intervention and appropriate disposition. Recommendations: 1. Hemodialysis today has been initiated with plan for 4 L fluid removal as tolerated over 4 hours 2. We will dialyze again tomorrow and then maintain him on a MWF schedule 3. Please resume his outpatient medication regimen and add serum phosphorus to today's labs 4. Diet: 2 g sodium, 2 g potassium, 80-90 g protein, 1200 mL fluid limit per day 5. Psychiatry consultation 6. Social service and case management follow-up Thank you. Will follow along with you.
[2017-08-22 05:50] VITALS: BP 140/78
--- NOTE | 2017-08-22 07:12 | PN- Housestaff ---
Subjective Follow-up For: End-stage renal disease, altered mental status Subjective: Patient seen and examined at bedside. Offers no complains. Denies chest pain, shortness of breath, nausea, vomiting, abdominal pain. He is Oriented 2. Review of Systems Constitutional: Reports: no symptoms, see HPI. Cardiovascular: Reports: no symptoms. Respiratory: Reports: no symptoms. Gastrointestinal: Reports: no symptoms. Objective Last 24 Hrs of Vital Signs/I&O Vital Signs Date Time Temp Pulse Resp B/P B/P Pulse O2 O2 Flow FiO2 Mean Ox Delivery Rate 08/22 1500 Room Air Room Air 08/22 1322 100/70 08/22 1230 97.8 98 18 138/62 98 08/22 0550 97.9 109 20 140/78 96 Room Air 08/21 205 98.5 70 16 142/78 97 Room Air 08/21 204 70 142/78 08/21 2046 70 142/78 08/21 2046 70 142/78 08/21 1901 97.6 82 18 132/76 97 Room Air Intake & Output 08/22 1600 08/22 0800 08/22 0000 Intake Total 300 460 Output Total 0 Balance 300 460 Intake, Oral 300 460 Output, Urine 0 Patient 194 lb Weight Weight Bed scale Measurement Method Physical Exam General Appearance: Alert, Cooperative, No Acute Distress Cardiovascular: Regular Rate, Normal S1, Normal S2, No Murmurs Lungs: Clear to Auscultation Abdomen: Soft, No Tenderness, No Hepatospenomegaly Neurological: Normal Speech, Strength at 5/5 X4 Ext, Normal Tone, Sensation Intact Current Medications: Current Medications Sig/Grace Start time Last Medication Dose Route Stop Time Status Admin Acetaminophen 650 MG Q6P PRN 08/21 06 AC PO Aripiprazole 400 MG Q28D 08/22 1000 AC 08/22 IM 1323 Aspirin Buffered 81 MG 0800 08/21 0800 AC 08/22 PO 1321 Atorvastatin Calcium 40 MG 1700 08/21 1700 AC PO Benztropine Mesylate 0.5 MG BID 08/21 09 AC 08/21 PO 204 Cinacalcet 30 MG DAILY 08/21 0900 AC 08/22 PO 1324 Furosemide 80 MG 0800,2200 08/21 0800 AC 08/22 PO 1321 Gabapentin 300 MG AT BEDTIME 08/21 2100 AC 08/21 PO 204 Heparin Sodium 5,000 UNIT Q8 08/21 0600 AC 08/22 (Porcine) SC 1321 Hydralazine HCl 20 MG BID 08/21 0900 AC 08/21 PO 204 Labetalol HCl 100 MG BID 08/21 09 AC 08/21 PO 204 Lamotrigine 50 MG 1000 08/22 1000 AC 08/22 PO 09/04 1001 1323 Lamotrigine 150 MG DAILY 08/21 0900 DC 08/21 PO 0817 Multivitamins 1 TAB 1000 08/21 1000 AC 08/22 PO 1321 Nitroglycerin 0.4 MG DAILY NEEDED PRN 08/21 0300 AC TOP Ondansetron HCl 4 MG ONCE ONE 08/22 1430 DC 08/22 PO 08/22 1431 1426 Ondansetron HCl 4 MG ONCE ONE 08/22 0145 DC 08/22 PO 08/22 0146 0140 Ondansetron HCl 4 MG .STK-MED ONE 08/22 0136 DC IM 08/22 0137 Oxcarbazepine 600 MG BID 08/21 09 AC 08/21 PO 2045 Patient Medication 1 ED ONE ONE 08/22 1115 DC 08/22 Teaching ED 08/22 1116 1321 Propranolol HCl 10 MG BID 08/21 09 AC 08/21 PO 2046 Quetiapine Fumarate 400 MG QPM 08/22 2100 AC PO Quetiapine Fumarate 400 MG ONCE ONE 08/22 0030 DC 08/22 PO 08/22 0031 0329 Sevelamer Carbonate 2,400 MG TIDAC 08/21 0800 AC 08/21 PO 1225 Sevelamer Carbonate 1,600 MG Q4P PRN 08/21 0300 AC PO Tiotropium [place] 1 PUF DAILY 08/21 0900 AC 08/22 INH 1324 Last 24 Hrs of Lab/Freddy Results Last 24 Hrs of Labs/Mics: Laboratory Tests 08/22/17 1130: 08/22/17 1042: Fluid WBC Cancelled, Fld Total RBCs Counted Cancelled 08/22/17 1042: Fluid LDH Cancelled 08/22/17 0730: Anion Gap 26 H, Estimated GFR 6 L, BUN/Creatinine Ratio 4.3 L, Calcium 8.9, Phosphorus 5.5 H, Magnesium 2.0, Albumin 5.1 H, CBC w Diff NO MAN DIFF REQ, RBC 4.61 L, MCV 85.5, MCH 29.0, MCHC 33.9, RDW 15.9 H, MPV 7.8, Gran % 64.2, Lymphocytes % 24.3, Monocytes % 9.6 H, Eosinophils % 1.5, Basophils % 0.4, Absolute Granulocytes 5.1, Absolute Lymphocytes 1.9, Absolute Monocytes 0.8 H, Absolute Eosinophils 0.1, Absolute Basophils 0 Microbiology 08/22 1042 BODY FLUID: Body Fluid Culture - CAN Cancelled: Cancelled via OE: Per MD Decision 08/22 1042 BODY FLUID: Gram Stain - CAN Cancelled: Cancelled via OE: Per MD Decision Assessment/Plan Assessment: 61 yo male with past medical history of ESRD on dialysis, CHF ef 45-50%, hypertension, hyperlipidemia, bipolar disorder, status post recent cardiac catheter [facility] stents [facility] February 2017, cardiac arrest while in the catheter lab requiring ICU stay, hospital stay 3 months for acute blood loss anemia and CHF exacerbation and dialysis, was discharged about 1 months ago came to the ambulance with chief complaint of altered mental status. Assessment and plan: Altered mental status secondary due to uremia [end-stage renal disease missed dialysis] History of bipolar, hypertension, COPD, CHF. * Patient planned for dialysis again today. Followed by nephrology. * CBC and BEP daily. * Continue home medications. * 1200 fluid restriction and renal diet. * Patient's intact PTH is elevated with normal calcium and low vitamin D. Given his end-stage renal disease elevated PTH could be a secondary response. We will discuss with nephrology. * Patient is seen by psychiatry who suggested to give Abilify dose for this month and continue his psych medication including Seroquel 400. * Spoke with pillowcase maker Luke was working with the conservator for discharge disposition. Problem List: 1. Mental status change 2. CHF (congestive heart failure) 3. ESRD (end stage renal disease) on dialysis Pain Ratin Pain Location: NONE Pain Goal: Remain pain free Pain Plan: TRYLENOL Tomorrow's Labs & Rationales: CBC,BEP
[2017-08-22 07:48] LABS: ABSOLUTE BASOPHIL COUNT 0 /CUMM (0.0-0.2); ABSOLUTE EOSINOPHIL COUNT 0.1 /CUMM (0.0-0.7); ABSOLUTE GRANULOCYTE CT 5.1 /CUMM (1.4-6.5); ABSOLUTE LYMPH COUNT 1.9 /CUMM (1.2-3.4); ABSOLUTE MONOCYTE COUNT 0.8 /CUMM (0.10-0.60); BASOPHIL % 0.4 % (0.0-2.0); EOSINOPHIL % 1.5 % (0-5); GRANULOCYTE % 64.2 % (42.2-75.2); HEMATOCRIT 39.4 % (42-52); MEAN CORPUSCULAR HGB CONC 33.9 G/DL (33.0-37.0); MEAN CORPUSCULAR VOLUME 85.5 FL (80.0-94.0); MEAN PLATELET VOLUME 7.8 FL (7.4-10.4); PLATELET COUNT 334 /CUMM (130-400); RBC DISTRIBUTION WIDTH 15.9 % (11.5-14.5); RED BLOOD CELL CT 4.61 /CUMM (4.70-6.10); WHITE BLOOD CELL COUNT 7.9 /CUMM (4.8-10.8)
--- NOTE | 2017-08-22 08:20 | Incdntl Nt Psy ---
See Addendum Incidental Note Notation: The patient is due for his Abilify Maintena depot injection 400 mg IM on 08/22/17 , last received 07/23/17. Any questions, please call pharmacy or psychiatry consult (Pager # [phone])
--- NOTE | 2017-08-22 09:18 | PN- Nephrology ---
Assessment/Plan Nephrology Assessment: 1. ESRD 2. Hypotension suggesting that he has lost a significant amount of dry weight over the past several weeks 3. Poor compliance with dialysis regimen 4. Bipolar disorder 5. Other comorbidities as noted Suggestion: 1. Hemodialysis today in progress with no ultrafiltration planned over 4 hours; in fact, may need to supplement with IV normal saline 2. Will maintain on a MWF hemodialysis schedule Subjective Subjective: Patient had some vomiting yesterday but none today. His weight is significantly below his presumed dry weight. Seen with hemodialysis which is currently in progress. Blood pressures are low with no clear-cut evidence of volume overload at this time. He is being fully replaced and in fact will leave dialysis today with positive fluid balance. Labs reviewed. Objective Vital Signs and I&Os Vital Signs Date Time Temp Pulse Resp B/P B/P Pulse O2 O2 Flow FiO2 Mean Ox Delivery Rate 08/22 0550 97.9 109 20 140/78 96 Room Air 08/22 2051 98.5 70 16 142/78 97 Room Air 08/21 2045 70 142/78 08/21 2045 70 142/78 08/21 2045 70 142/78 08/21 1901 97.6 82 18 132/76 97 Room Air 08/21 1414 98.4 86 20 130/90 96 08/21 1118 168/98 08/21 1045 Room Air Room Air Intake & Output 08/22 0400 08/21 1600 08/21 0400 08/20 1600 08/20 0400 Intake Total 300 460 360 0 Output Total 0 0 Balance 300 460 360 0 Intake, Oral 300 460 360 0 Output, Urine 0 0 Patient 194 lb 205 lb 216 lb Weight Weight Bed scale Bed scale Measurement Method Physical Exam: General: Well-developed white male in no acute distress Skin: No rash or jaundice HEENT: Conjunctivae pink, sclerae anicteric, mucous membranes moist; there is facial edema Neck: Without masses or thyromegaly, no supraclavicular or cervical adenopathy Chest: Clear to P & A Heart: Regular rate and rhythm without S3 or rub Abdomen: Obese, soft and nontender without palpable masses or organomegaly Extremities: No cyanosis or edema, left lower arm AVF patent Neuro: Awake, no focal findings, no asterixis or myoclonus Results Pertinent Lab Results: Laboratory Tests 08/22 08/21 0730 0830 Chemistry Sodium (137 - 145 mmol/L) 144 143 Potassium (3.5 - 5.1 mmol/L) 5.0 5.1 Chloride (98 - 107 mmol/L) 95 L 98 Carbon Dioxide (22 - 30 mmol/L) 24 23 Anion Gap (5 - 16) 26 H 22 H BUN (9 - 20 mg/dL) 38 H 68 H Creatinine (0.7 - 1.2 mg/dL) 8.9 *H 12.9 *H Estimated GFR (>60 ml/min) 6 L 4 L BUN/Creatinine Ratio (7 - 25 %) 4.3 L 5.3 L Calcium (8.4 - 10.2 mg/dL) 8.9 Phosphorus (2.5 - 4.5 mg/dL) 5.5 H 4.8 H Magnesium (1.6 - 2.3 mg/dL) 2.0 Ammonia (9 - 30 umol/L) 11 Albumin (3.5 - 5.0 g/dL) 5.1 H Vitamin B12 (239 - 931 pg/mL) 355 25-OH Vitamin D Total (30 - 100 ng/ml) 13.2 L Folate (2.76 - 20.0 ng/mL) > 20.0 H TSH (0.270 - 4.200 uIU/mL) 0.774 Free T4 (0.78 - 2.44 ng/dL) 0.58 L Total T3 (0.97 - 1.69 ng/mL) 1.02 PTH Intact (18.4 - 80.1 pg/ML) 1457.5 H Coagulation PT (9.4 - 12.5 SEC) 13.0 H INR (0.90 - 1.17) 1.19 H APTT (25 - 37 SEC) 38 H Hematology CBC w Diff NO MAN DIFF REQ NO MAN DIFF REQ WBC (4.8 - 10.8 /CUMM) 7.9 7.5 RBC (4.70 - 6.10 /CUMM) 4.61 L 4.13 L Hgb (14.0 - 18.0 G/DL) 13.4 L 12.0 L Hct (42 - 52 %) 39.4 L 36.0 L MCV (80.0 - 94.0 FL) 85.5 87.2 MCH (27.0 - 31.0 PG) 29.0 29.0 MCHC (33.0 - 37.0 G/DL) 33.9 33.3 RDW (11.5 - 14.5 %) 15.9 H 15.9 H Plt Count (130 - 400 /CUMM) 334 290 MPV (7.4 - 10.4 FL) 7.8 7.9 Gran % (42.2 - 75.2 %) 64.2 68.1 Lymphocytes % (20.5 - 51.1 %) 24.3 19.5 L Monocytes % (1.7 - 9.3 %) 9.6 H 8.6 Eosinophils % (0 - 5 %) 1.5 3.1 Basophils % (0.0 - 2.0 %) 0.4 0.7 Absolute Granulocytes (1.4 - 6.5 /CUMM) 5.1 5.1 Absolute Lymphocytes (1.2 - 3.4 /CUMM) 1.9 1.5 Absolute Monocytes (0.10 - 0.60 /CUMM) 0.8 H 0.6 Absolute Eosinophils (0.0 - 0.7 /CUMM) 0.1 0.2 Absolute Basophils (0.0 - 0.2 /CUMM) 0 0.1 08/21 08/20 0430 2300 Blood Gas pH (7.35 - 7.45 PH) 7.42 pCO2 (35 - 45 TORR) 36 pO2 (80 - 100 TORR) 90 HCO3 (21 - 28 MEQ/L) 23 ABG O2 Sat (Measured) (>96.0 %) 96.0 P-50 (Temp Corrected) N Carboxyhemoglobin (1.5 - 5.0 %) 0.4 L O2 Concentration % RA Chemistry Sodium (137 - 145 mmol/L) 140 Potassium (3.5 - 5.1 mmol/L) 4.5 Chloride (98 - 107 mmol/L) 96 L Carbon Dioxide (22 - 30 mmol/L) 21 L Anion Gap (5 - 16) 24 H BUN (9 - 20 mg/dL) 59 H Creatinine (0.7 - 1.2 mg/dL) 12.0 *H Estimated GFR (>60 ml/min) 4 L BUN/Creatinine Ratio (7 - 25 %) 4.9 L Glucose (65 - 99 mg/dL) 104 H Calcium (8.4 - 10.2 mg/dL) 9.1 Total Bilirubin (0.2 - 1.3 mg/dL) 1.1 Direct Bilirubin (< 0.4 mg/dL) 1.1 H AST (17 - 59 U/L) 27 ALT (21 - 72 U/L) 23 Alkaline Phosphatase (< 127 U/L) 594 H Troponin I (<0.11 ng/ml) 0.04 Total Protein (6.3 - 8.2 g/dL) 8.3 H Albumin (3.5 - 5.0 g/dL) 5.2 H Amylase (30 - 110 U/L) 121 H Lipase (23 - 300 U/L) 353 H Prolactin (3.7 - 17.9 ng/mL) 8.3 Hematology CBC w Diff NO MAN DIFF REQ WBC (4.8 - 10.8 /CUMM) 10.1 RBC (4.70 - 6.10 /CUMM) 4.30 L Hgb (14.0 - 18.0 G/DL) 12.3 L Hct (42 - 52 %) 37.6 L MCV (80.0 - 94.0 FL) 87.5 MCH (27.0 - 31.0 PG) 28.6 MCHC (33.0 - 37.0 G/DL) 32.6 L RDW (11.5 - 14.5 %) 16.0 H Plt Count (130 - 400 /CUMM) 314 MPV (7.4 - 10.4 FL) 7.9 Gran % (42.2 - 75.2 %) 61.3 Lymphocytes % (20.5 - 51.1 %) 26.3 Monocytes % (1.7 - 9.3 %) 9.0 Eosinophils % (0 - 5 %) 3.0 Basophils % (0.0 - 2.0 %) 0.4 Absolute Granulocytes (1.4 - 6.5 /CUMM) 6.2 Absolute Lymphocytes (1.2 - 3.4 /CUMM) 2.7 Absolute Monocytes (0.10 - 0.60 /CUMM) 0.9 H Absolute Eosinophils (0.0 - 0.7 /CUMM) 0.3 Absolute Basophils (0.0 - 0.2 /CUMM) 0 Miscellaneous Phlebotomy Draw Site RIGHT RADIAL Toxicology Serum Alcohol (<10 MG/DL) < 10.0
[2017-08-22 12:30] VITALS: BP 138/62
--- NOTE | 2017-08-22 14:48 | PN- Att Addend ---
Attending Addendum Attending Brief Note Hemodialysis in progress. His blood pressure little low and his mental status is much improved almost at baseline. We'll continue hemodialysis sure he has on his psychiatric medications and continue to see was the best disposition plans for this patient. 24 TOTALS 08/22 0000 08/21 0000 Intake Total 820 0 Output Total 0 Balance 820 0 Intake, Oral 820 0 Output, Urine 0 Patient 194 lb Weight Weight Bed scale Measurement Method Current Medications Sig/Grace Start time Last Medication Dose Route Stop Time Status Admin Acetaminophen 650 MG Q6P PRN 08/21 0600 AC PO Aripiprazole 400 MG Q28D 08/22 1000 AC 08/22 IM 1323 Aspirin Buffered 81 MG 0800 08/21 0800 AC 08/22 PO 1321 Atorvastatin Calcium 40 MG 1700 08/21 1700 AC PO Benztropine Mesylate 0.5 MG BID 08/21 0900 AC 08/21 PO 2045 Cinacalcet 30 MG DAILY 08/21 0900 AC 08/22 PO 1324 Furosemide 80 MG 0800,2200 08/21 0800 AC 08/22 PO 1321 Gabapentin 300 MG AT BEDTIME 08/21 2100 AC 08/21 PO 2045 Heparin Sodium 5,000 UNIT Q8 08/21 0600 AC 08/22 (Porcine) SC 1321 Hydralazine HCl 20 MG BID 08/21 0900 AC 08/21 PO 204 Labetalol HCl 100 MG BID 08/21 0900 AC 08/21 PO 2046 Lamotrigine 50 MG 1000 08/22 1000 AC 08/22 PO 05/08 1001 1323 Lamotrigine 150 MG DAILY 08/21 0900 DC 08/21 PO 0817 Multivitamins 1 TAB 1000 08/21 1000 AC 08/22 PO 1321 Nitroglycerin 0.4 MG DAILY NEEDED PRN 08/21 0300 AC TOP Ondansetron HCl 4 MG ONCE ONE 08/22 1430 DC 08/22 PO 08/22 1431 1426 Ondansetron HCl 4 MG ONCE ONE 08/22 0145 DC 08/22 PO 08/22 0146 0140 Ondansetron HCl 4 MG .STK-MED ONE 08/22 0136 DC IM 08/22 0137 Oxcarbazepine 600 MG BID 08/21 0900 AC 08/21 PO 2045 Patient Medication 1 ED ONE ONE 08/22 1115 DC 08/22 Teaching ED 08/22 1116 1321 Propranolol HCl 10 MG BID 08/21 0900 AC 08/21 PO 2046 Quetiapine Fumarate 400 MG QPM 08/22 2100 AC PO Quetiapine Fumarate 400 MG ONCE ONE 08/22 0030 DC 08/22 PO 08/22 0031 0329 Sevelamer Carbonate 2,400 MG TIDAC 08/21 0800 AC 08/21 PO 1225 Sevelamer Carbonate 1,600 MG Q4P PRN 08/21 0300 AC PO Tiotropium [place] 1 PUF DAILY 08/21 09 AC 08/22 INH 1324 Laboratory Tests 08/22/17 1130: 08/22/17 1042: Fluid WBC Cancelled, Fld Total RBCs Counted Cancelled 08/22/17 1042: Fluid LDH Cancelled 08/22/17 0730: Anion Gap 26 H, Estimated GFR 6 L, BUN/Creatinine Ratio 4.3 L, Calcium 8.9, Phosphorus 5.5 H, Magnesium 2.0, Albumin 5.1 H, CBC w Diff NO MAN DIFF REQ, RBC 4.61 L, MCV 85.5, MCH 29.0, MCHC 33.9, RDW 15.9 H, MPV 7.8, Gran % 64.2, Lymphocytes % 24.3, Monocytes % 9.6 H, Eosinophils % 1.5, Basophils % 0.4, Absolute Granulocytes 5.1, Absolute Lymphocytes 1.9, Absolute Monocytes 0.8 H, Absolute Eosinophils 0.1, Absolute Basophils 0 08/21/17 0830: Anion Gap 22 H, Estimated GFR 4 L, BUN/Creatinine Ratio 5.3 L, Phosphorus 4.8 H, Ammonia 11, Vitamin B12 355, 25-OH Vitamin D Total 13.2 L, Folate > 20.0 H , TSH 0.774, Free T4 0.58 L, Total T3 1.02, PTH Intact 1457.5 H, PT 13.0 H, INR 1.19 H, APTT 38 H, CBC w Diff NO MAN DIFF REQ, RBC 4.13 L, MCV 87.2, MCH 29.0, MCHC 33.3, RDW 15.9 H, MPV 7.9, Gran % 68.1, Lymphocytes % 19.5 L, Monocytes % 8.6, Eosinophils % 3.1, Basophils % 0.7, Absolute Granulocytes 5.1, Absolute Lymphocytes 1.5, Absolute Monocytes 0.6, Absolute Eosinophils 0.2, Absolute Basophils 0.1 08/21/17 0430: pH 7.42, pCO2 36, pO2 90, HCO3 23, ABG O2 Sat (Measured) 96.0, P-50 (Temp Corrected) N, Carboxyhemoglobin 0.4 L, O2 Concentration % RA, Phlebotomy Draw Site RIGHT RADIAL 08/21/17 0318: Methadone Screen Cancelled, Barbiturate Screen Cancelled, Ur Phencyclidine Scrn Cancelled, Amphetamines Screen Cancelled, U Benzodiazepines Scrn Cancelled, Urine Cocaine Screen Cancelled, Urine Cannabis Screen Cancelled, Urine Color Cancelled, Urine Clarity Cancelled, Urine pH Cancelled, Ur Specific [place] Cancelled, Urine Protein Cancelled, Urine Ketones Cancelled, Urine Nitrite Cancelled, Urine Bilirubin Cancelled, Urine Urobilinogen Cancelled, Ur Leukocyte Esterase Cancelled, Ur Microscopic Cancelled, Urine Hemoglobin Cancelled, Urine Glucose Cancelled 08/20/17 2300: Anion Gap 24 H, Estimated GFR 4 L, BUN/Creatinine Ratio 4.9 L, Glucose 104 H , Calcium 9.1, Total Bilirubin 1.1, Direct Bilirubin 1.1 H, AST 27, ALT 23, Alkaline Phosphatase 594 H, Troponin I 0.04, Total Protein 8.3 H, Albumin 5.2 H, Amylase 121 H, Lipase 353 H, Prolactin 8.3, CBC w Diff NO MAN DIFF REQ, RBC 4.30 L, MCV 87.5, MCH 28.6, MCHC 32.6 L, RDW 16.0 H, MPV 7.9, Gran % 61.3, Lymphocytes % 26.3, Monocytes % 9.0, Eosinophils % 3.0, Basophils % 0.4, Absolute Granulocytes 6.2, Absolute Lymphocytes 2.7, Absolute Monocytes 0.9 H, Absolute Eosinophils 0.3, Absolute Basophils 0, Serum Alcohol < 10.0 Vital Signs Date Time Temp Pulse Resp B/P B/P Pulse O2 O2 Flow FiO2 Mean Ox Delivery Rate 08/22 1322 100/70 08/22 1230 97.8 98 18 138/62 98 08/22 0550 97.9 109 20 140/78 96 Room Air 08/22 2051 98.5 70 16 142/78 97 Room Air 08/21 2045 70 142/78 08/21 2045 70 142/78 08/21 2045 70 142/78 08/21 1901 97.6 82 18 132/76 97 Room Air
[2017-08-22 16:00] VITALS: BP 98/70
[2017-08-22 22:23] VITALS: BP 100/60
[2017-08-22 23:47] VITALS: BP 106/74
[2017-08-23 06:20] VITALS: BP 114/70
--- NOTE | 2017-08-23 07:10 | PN- Housestaff ---
Subjective Follow-up For: End-stage renal disease, altered mental status Complaints: no complaints Subjective: No overnight events. He slept well. Alert and oriented 3. He denies chest pain, shortness of breath, abdominal pain, nausea, confusion, vomiting. Review of Systems Constitutional: Reports: no symptoms. Cardiovascular: Reports: no symptoms. Respiratory: Reports: no symptoms. Gastrointestinal: Reports: no symptoms. Genitourinary: Reports: no symptoms. Objective Last 24 Hrs of Vital Signs/I&O Vital Signs Date Time Temp Pulse Resp B/P B/P Pulse O2 O2 Flow FiO2 Mean Ox Delivery Rate 08/23 09 114/70 08/23 0903 114/70 08/23 0903 114/70 08/23 0620 98.3 81 18 114/70 91 Room Air 08/22 2347 102 106/74 08/22 2223 98.8 87 19 100/60 95 Room Air 08/22 2145 87 100/60 08/22 2145 100/60 08/22 2145 100/60 08/22 1600 98.1 96 18 98/70 08/22 1500 Room Air Room Air 08/22 1322 100/70 08/22 1230 97.8 98 18 138/62 98 Intake & Output 08/23 1600 08/23 0800 08/23 0000 Intake Total 200 340 Output Total Balance 200 340 Intake, Oral 200 340 Patient 192 lb Weight Weight Bed scale Measurement Method Physical Exam General Appearance: Alert, Oriented X3, Cooperative, No Acute Distress Cardiovascular: Regular Rate, Normal S1, Normal S2, No Murmurs Lungs: Normal Air Movement Abdomen: Soft, No Tenderness, No Hepatospenomegaly Neurological: Normal Speech, Strength at 5/5 X4 Ext, Normal Tone Extremities: No Edema Current Medications: Current Medications Sig/Grace Start time Last Medication Dose Route Stop Time Status Admin Acetaminophen 650 MG Q6P PRN 08/21 06 AC PO Aripiprazole 400 MG Q28D 08/22 1000 AC 08/22 IM 1323 Aspirin Buffered 81 MG 0808/21 08 AC 08/23 PO 0902 Atorvastatin Calcium 40 MG 1700 08/21 1700 AC 08/22 PO 1759 Benztropine Mesylate 0.5 MG BID 08/21 09 AC 08/23 PO 0903 Cinacalcet 30 MG DAILY 08/21 09 AC 08/23 PO 0903 Furosemide 80 MG 0800,2200 08/21 08 AC 08/23 PO 0903 Gabapentin 300 MG AT BEDTIME 08/21 2100 AC 08/22 PO 2139 Heparin Sodium 5,000 UNIT Q8 08/21 06 AC 08/23 (Porcine) SC 0559 Hydralazine HCl 20 MG BID 08/21 09 AC 08/23 PO 0903 Labetalol HCl 100 MG BID 08/21 09 AC 08/23 PO 0903 Lamotrigine 50 MG 1000 08/22 1000 AC 08/23 PO 09/04 1001 0903 Multivitamins 1 TAB 1000 08/21 1000 AC 08/23 PO 0903 Nitroglycerin 0.4 MG DAILY NEEDED PRN 08/21 0300 AC TOP Ondansetron HCl 4 MG ONCE ONE 08/22 2044 DC 08/22 PO 08/22 Ondansetron HCl 4 MG ONCE ONE 08/22 1430 DC 08/22 PO 08/22 1431 1426 Oxcarbazepine 600 MG BID 08/21 09 AC 08/23 PO 0903 Propranolol HCl 10 MG BID 08/21 09 AC 08/23 PO 0903 Quetiapine Fumarate 400 MG QPM 08/22 2100 AC 08/22 PO 2139 Sevelamer Carbonate 2,400 MG TIDAC 08/21 08 AC 08/23 PO 1207 Sevelamer Carbonate 1,600 MG Q4P PRN 08/21 0300 AC PO Tiotropium [place] 1 PUF DAILY 08/21 09 AC 08/23 INH 0856 Last 24 Hrs of Lab/Freddy Results Last 24 Hrs of Labs/Mics: Laboratory Tests 08/23/17 0735: Anion Gap 18 H, Estimated GFR 9 L, BUN/Creatinine Ratio 5.2 L, CBC w Diff NO MAN DIFF REQ, RBC 4.24 L, MCV 88.2, MCH 28.6, MCHC 32.4 L, RDW 15.9 H, MPV 8.2, Gran % 58.4, Lymphocytes % 23.9, Monocytes % 13.1 H, Eosinophils % 3.8, Basophils % 0.8, Absolute Granulocytes 4.2, Absolute Lymphocytes 1.7, Absolute Monocytes 0.9 H, Absolute Eosinophils 0.3, Absolute Basophils 0.1 Assessment/Plan Assessment: 61 yo male with past medical history of ESRD on dialysis, CHF ef 45-50%, hypertension, hyperlipidemia, bipolar disorder, status post recent cardiac catheter and stents at [facility] in February 2017, cardiac arrest while in the catheter lab requiring ICU stay, hospital stay 3 months for acute blood loss anemia and CHF exacerbation and dialysis, was discharged about 1 months ago came to the ambulance with chief complaint of altered mental status. Assessment and plan: Altered mental status secondary due to uremia [end-stage renal disease missed dialysis] History of bipolar, hypertension, COPD, CHF. * Patient planned for dialysis tomorrow. Followed by nephrology. * CBC and BEP daily. * Continue home medications. * 1200 fluid restriction and renal diet. * Patient's intact PTH is elevated with normal calcium and low vitamin D. Given his end-stage renal disease elevated PTH could be a secondary response. We will discuss with nephrology. * Patient is seen by psychiatry who suggested to give Abilify dose for this month and continue his psych medication including Seroquel 400. * Spoke with case management specialist Luke is working with the conservator for discharge disposition. Plan-discharge disposition will be discussed with the case management. Problem List: 1. ESRD (end stage renal disease) on dialysis Pain Ratin Pain Location: none Pain Goal: Remain pain free Pain Plan: tylenol Tomorrow's Labs & Rationales: cbc,bep
[2017-08-23 08:27] LABS: ABSOLUTE BASOPHIL COUNT 0.1 /CUMM (0.0-0.2); ABSOLUTE EOSINOPHIL COUNT 0.3 /CUMM (0.0-0.7); ABSOLUTE GRANULOCYTE CT 4.2 /CUMM (1.4-6.5); ABSOLUTE LYMPH COUNT 1.7 /CUMM (1.2-3.4); ABSOLUTE MONOCYTE COUNT 0.9 /CUMM (0.10-0.60); BASOPHIL % 0.8 % (0.0-2.0); EOSINOPHIL % 3.8 % (0-5); GRANULOCYTE % 58.4 % (42.2-75.2); HEMATOCRIT 37.4 % (42-52); MEAN CORPUSCULAR HGB 28.6 PG (27.0-31.0); MEAN CORPUSCULAR HGB CONC 32.4 G/DL (33.0-37.0); MEAN CORPUSCULAR VOLUME 88.2 FL (80.0-94.0); MEAN PLATELET VOLUME 8.2 FL (7.4-10.4); PLATELET COUNT 293 /CUMM (130-400); RBC DISTRIBUTION WIDTH 15.9 % (11.5-14.5); RED BLOOD CELL CT 4.24 /CUMM (4.70-6.10); WHITE BLOOD CELL COUNT 7.2 /CUMM (4.8-10.8)
--- NOTE | 2017-08-23 10:04 | PN- Nephrology ---
Assessment/Plan Nephrology Assessment: 1. ESRD 2. Hypotension - resolved 3. Poor compliance with dialysis regimen 4. Bipolar disorder 5. Other comorbidities as noted Suggestion: 1. No dialysis need today; will schedule for tomorrow 2. Disposition plans pending. I am not convinced patient will be able to manage at home Subjective Subjective: Patient looks and feels quite well today. Hemodynamically stable without complaints. Labs reviewed. Objective Vital Signs and I&Os He Vital Signs Date Time Temp Pulse Resp B/P B/P Pulse O2 O2 Flow FiO2 Mean Ox Delivery Rate 08/23 0903 11470 08/23 0903 11408/23 0903 11408/23 0620 98.3 81 18 114/70 91 Room Air 08/22 2347 102 106/74 08/22 2223 98.8 87 19 100/60 95 Room Air 08/22 2145 87 100/60 08/22 2145 100/60 08/22 2145 100/60 08/22 1600 98.1 96 18 98/70 08/22 1500 Room Air Room Air 08/22 1322 100/70 08/22 1230 97.8 98 18 138/62 98 Intake & Output 08/23 1600 08/23 0400 08/22 1600 08/22 0400 08/21 1600 08/21 0400 Intake Total 200 340 760 460 360 0 Output Total 0 0 Balance 200 340 760 460 360 0 Intake, Oral 200 340 760 460 360 0 Output, Urine 0 0 Patient 192 lb 196 lb 194 lb 205 lb 216 lb Weight Weight Bed scale Bed scale Bed scale Measurement Method Physical Exam: General: Well-developed white male in no acute distress Skin: No rash or jaundice HEENT: Conjunctivae pink, sclerae anicteric, mucous membranes moist Neck: Without masses or thyromegaly, no supraclavicular or cervical adenopathy Chest: Clear to P & A Heart: Regular rate and rhythm without S3 or rub Abdomen: Obese, soft and nontender without palpable masses or organomegaly Extremities: No cyanosis or edema, left lower arm AVF patent Neuro: Awake and alert, oriented 3, no focal findings, no asterixis or myoclonus Results Pertinent Lab Results: Laboratory Tests 08/23 08/22 08/22 0735 1130 1042 Chemistry Sodium (137 - 145 mmol/L) 141 Potassium (3.5 - 5.1 mmol/L) 4.5 Chloride (98 - 107 mmol/L) 96 L Carbon Dioxide (22 - 30 mmol/L) 27 Anion Gap (5 - 16) 18 H BUN (9 - 20 mg/dL) 33 H 11 Creatinine (0.7 - 1.2 mg/dL) 6.4 *H Estimated GFR (>60 ml/min) 9 L BUN/Creatinine Ratio (7 - 25 %) 5.2 L Hematology CBC w Diff NO MAN DIFF REQ WBC (4.8 - 10.8 /CUMM) 7.2 RBC (4.70 - 6.10 /CUMM) 4.24 L Hgb (14.0 - 18.0 G/DL) 12.1 L Hct (42 - 52 %) 37.4 L MCV (80.0 - 94.0 FL) 88.2 MCH (27.0 - 31.0 PG) 28.6 MCHC (33.0 - 37.0 G/DL) 32.4 L RDW (11.5 - 14.5 %) 15.9 H Plt Count (130 - 400 /CUMM) 293 MPV (7.4 - 10.4 FL) 8.2 Gran % (42.2 - 75.2 %) 58.4 Lymphocytes % (20.5 - 51.1 %) 23.9 Monocytes % (1.7 - 9.3 %) 13.1 H Eosinophils % (0 - 5 %) 3.8 Basophils % (0.0 - 2.0 %) 0.8 Absolute Granulocytes (1.4 - 6.5 /CUMM) 4.2 Absolute Lymphocytes (1.2 - 3.4 /CUMM) 1.7 Absolute Monocytes (0.10 - 0.60 /CUMM) 0.9 H Absolute Eosinophils (0.0 - 0.7 /CUMM) 0.3 Absolute Basophils (0.0 - 0.2 /CUMM) 0.1 Other Body Source Fluid WBC Cancelled Fld Total RBCs Counted Cancelled 08/22 08/22 1042 0730 Chemistry Sodium (137 - 145 mmol/L) 144 Potassium (3.5 - 5.1 mmol/L) 5.0 Chloride (98 - 107 mmol/L) 95 L Carbon Dioxide (22 - 30 mmol/L) 24 Anion Gap (5 - 16) 26 H BUN (9 - 20 mg/dL) 38 H Creatinine (0.7 - 1.2 mg/dL) 8.9 *H Estimated GFR (>60 ml/min) 6 L BUN/Creatinine Ratio (7 - 25 %) 4.3 L Calcium (8.4 - 10.2 mg/dL) 8.9 Phosphorus (2.5 - 4.5 mg/dL) 5.5 H Magnesium (1.6 - 2.3 mg/dL) 2.0 Albumin (3.5 - 5.0 g/dL) 5.1 H Hematology CBC w Diff NO MAN DIFF REQ WBC (4.8 - 10.8 /CUMM) 7.9 RBC (4.70 - 6.10 /CUMM) 4.61 L Hgb (14.0 - 18.0 G/DL) 13.4 L Hct (42 - 52 %) 39.4 L MCV (80.0 - 94.0 FL) 85.5 MCH (27.0 - 31.0 PG) 29.0 MCHC (33.0 - 37.0 G/DL) 33.9 RDW (11.5 - 14.5 %) 15.9 H Plt Count (130 - 400 /CUMM) 334 MPV (7.4 - 10.4 FL) 7.8 Gran % (42.2 - 75.2 %) 64.2 Lymphocytes % (20.5 - 51.1 %) 24.3 Monocytes % (1.7 - 9.3 %) 9.6 H Eosinophils % (0 - 5 %) 1.5 Basophils % (0.0 - 2.0 %) 0.4 Absolute Granulocytes (1.4 - 6.5 /CUMM) 5.1 Absolute Lymphocytes (1.2 - 3.4 /CUMM) 1.9 Absolute Monocytes (0.10 - 0.60 /CUMM) 0.8 H Absolute Eosinophils (0.0 - 0.7 /CUMM) 0.1 Absolute Basophils (0.0 - 0.2 /CUMM) 0 Other Body Source Fluid LDH Cancelled 08/21 08/21 0830 0430 Blood Gas pH (7.35 - 7.45 PH) 7.42 pCO2 (35 - 45 TORR) 36 pO2 (80 - 100 TORR) 90 HCO3 (21 - 28 MEQ/L) 23 ABG O2 Sat (Measured) (>96.0 %) 96.0 P-50 (Temp Corrected) N Carboxyhemoglobin (1.5 - 5.0 %) 0.4 L O2 Concentration % RA Chemistry Sodium (137 - 145 mmol/L) 143 Potassium (3.5 - 5.1 mmol/L) 5.1 Chloride (98 - 107 mmol/L) 98 Carbon Dioxide (22 - 30 mmol/L) 23 Anion Gap (5 - 16) 22 H BUN (9 - 20 mg/dL) 68 H Creatinine (0.7 - 1.2 mg/dL) 12.9 *H Estimated GFR (>60 ml/min) 4 L BUN/Creatinine Ratio (7 - 25 %) 5.3 L Phosphorus (2.5 - 4.5 mg/dL) 4.8 H Ammonia (9 - 30 umol/L) 11 Vitamin B12 (239 - 931 pg/mL) 355 25-OH Vitamin D Total (30 - 100 ng/ml) 13.2 L Folate (2.76 - 20.0 ng/mL) > 20.0 H TSH (0.270 - 4.200 uIU/mL) 0.774 Free T4 (0.78 - 2.44 ng/dL) 0.58 L Total T3 (0.97 - 1.69 ng/mL) 1.02 PTH Intact (18.4 - 80.1 pg/ML) 1457.5 H Coagulation PT (9.4 - 12.5 SEC) 13.0 H INR (0.90 - 1.17) 1.19 H APTT (25 - 37 SEC) 38 H Hematology CBC w Diff NO MAN DIFF REQ WBC (4.8 - 10.8 /CUMM) 7.5 RBC (4.70 - 6.10 /CUMM) 4.13 L Hgb (14.0 - 18.0 G/DL) 12.0 L Hct (42 - 52 %) 36.0 L MCV (80.0 - 94.0 FL) 87.2 MCH (27.0 - 31.0 PG) 29.0 MCHC (33.0 - 37.0 G/DL) 33.3 RDW (11.5 - 14.5 %) 15.9 H Plt Count (130 - 400 /CUMM) 290 MPV (7.4 - 10.4 FL) 7.9 Gran % (42.2 - 75.2 %) 68.1 Lymphocytes % (20.5 - 51.1 %) 19.5 L Monocytes % (1.7 - 9.3 %) 8.6 Eosinophils % (0 - 5 %) 3.1 Basophils % (0.0 - 2.0 %) 0.7 Absolute Granulocytes (1.4 - 6.5 /CUMM) 5.1 Absolute Lymphocytes (1.2 - 3.4 /CUMM) 1.5 Absolute Monocytes (0.10 - 0.60 /CUMM) 0.6 Absolute Eosinophils (0.0 - 0.7 /CUMM) 0.2 Absolute Basophils (0.0 - 0.2 /CUMM) 0.1 Miscellaneous Phlebotomy Draw Site RIGHT RADIAL 08/21 08/20 0318 2300 Chemistry Sodium (137 - 145 mmol/L) 140 Potassium (3.5 - 5.1 mmol/L) 4.5 Chloride (98 - 107 mmol/L) 96 L Carbon Dioxide (22 - 30 mmol/L) 21 L Anion Gap (5 - 16) 24 H BUN (9 - 20 mg/dL) 59 H Creatinine (0.7 - 1.2 mg/dL) 12.0 *H Estimated GFR (>60 ml/min) 4 L BUN/Creatinine Ratio (7 - 25 %) 4.9 L Glucose (65 - 99 mg/dL) 104 H Calcium (8.4 - 10.2 mg/dL) 9.1 Total Bilirubin (0.2 - 1.3 mg/dL) 1.1 Direct Bilirubin (< 0.4 mg/dL) 1.1 H AST (17 - 59 U/L) 27 ALT (21 - 72 U/L) 23 Alkaline Phosphatase (< 127 U/L) 594 H Troponin I (<0.11 ng/ml) 0.04 Total Protein (6.3 - 8.2 g/dL) 8.3 H Albumin (3.5 - 5.0 g/dL) 5.2 H Amylase (30 - 110 U/L) 121 H Lipase (23 - 300 U/L) 353 H Prolactin (3.7 - 17.9 ng/mL) 8.3 Hematology CBC w Diff NO MAN DIFF REQ WBC (4.8 - 10.8 /CUMM) 10.1 RBC (4.70 - 6.10 /CUMM) 4.30 L Hgb (14.0 - 18.0 G/DL) 12.3 L Hct (42 - 52 %) 37.6 L MCV (80.0 - 94.0 FL) 87.5 MCH (27.0 - 31.0 PG) 28.6 MCHC (33.0 - 37.0 G/DL) 32.6 L RDW (11.5 - 14.5 %) 16.0 H Plt Count (130 - 400 /CUMM) 314 MPV (7.4 - 10.4 FL) 7.9 Gran % (42.2 - 75.2 %) 61.3 Lymphocytes % (20.5 - 51.1 %) 26.3 Monocytes % (1.7 - 9.3 %) 9.0 Eosinophils % (0 - 5 %) 3.0 Basophils % (0.0 - 2.0 %) 0.4 Absolute Granulocytes (1.4 - 6.5 /CUMM) 6.2 Absolute Lymphocytes (1.2 - 3.4 /CUMM) 2.7 Absolute Monocytes (0.10 - 0.60 /CUMM) 0.9 H Absolute Eosinophils (0.0 - 0.7 /CUMM) 0.3 Absolute Basophils (0.0 - 0.2 /CUMM) 0 Toxicology Methadone Screen Cancelled Barbiturate Screen Cancelled Ur Phencyclidine Scrn Cancelled Amphetamines Screen Cancelled U Benzodiazepines Scrn Cancelled Urine Cocaine Screen Cancelled Urine Cannabis Screen Cancelled Serum Alcohol (<10 MG/DL) < 10.0 Urines Urine Color Cancelled Urine Clarity Cancelled Urine pH Cancelled Ur Specific [place] Cancelled Urine Protein Cancelled Urine Ketones Cancelled Urine Nitrite Cancelled Urine Bilirubin Cancelled Urine Urobilinogen Cancelled Ur Leukocyte Esterase Cancelled Ur Microscopic Cancelled Urine Hemoglobin Cancelled Urine Glucose Cancelled
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
--- NOTE | 2017-08-23 10:39 | PN- Att Addend ---
Attending Addendum Attending Brief Note Patient looking much better back to baseline mental status Current Medications Sig/Grace Start time Last Medication Dose Route Stop Time Status Admin Acetaminophen 650 MG Q6P PRN 08/21 06 AC PO Aripiprazole 400 MG Q28D 08/22 1000 AC 08/22 IM 1323 Aspirin Buffered 81 MG 0800 08/21 0800 AC 08/23 PO 0902 Atorvastatin Calcium 40 MG 1700 08/21 1700 AC 08/22 PO 1759 Benztropine Mesylate 0.5 MG BID 08/21 0900 AC 08/23 PO 0903 Cinacalcet 30 MG DAILY 08/21 0900 AC 08/23 PO 0903 Furosemide 80 MG 0800,2200 08/21 0800 AC 08/23 PO 0903 Gabapentin 300 MG AT BEDTIME 08/21 2100 AC 08/22 PO 2139 Heparin Sodium 5,000 UNIT Q8 08/21 06 AC 08/23 (Porcine) SC 0559 Hydralazine HCl 20 MG BID 08/21 0900 AC 08/23 PO 0903 Labetalol HCl 100 MG BID 08/21 0900 AC 08/23 PO 0903 Lamotrigine 50 MG 1000 08/22 1000 AC 08/23 PO 05/08 1001 0903 Multivitamins 1 TAB 1000 08/21 1000 AC 08/23 PO 0903 Nitroglycerin 0.4 MG DAILY NEEDED PRN 08/21 0300 AC TOP Ondansetron HCl 4 MG ONCE ONE 08/22 2045 DC 08/22 PO 08/22 2046 2051 Ondansetron HCl 4 MG ONCE ONE 08/22 1430 DC 08/22 PO 08/22 1431 1426 Oxcarbazepine 600 MG BID 08/21 0900 AC 08/23 PO 0903 Patient Medication 1 ED ONE ONE 08/22 1115 DC 08/22 Teaching ED 08/22 1116 1321 Propranolol HCl 10 MG BID 08/21 0900 AC 08/23 PO 0903 Quetiapine Fumarate 400 MG QPM 08/22 2100 AC 08/22 PO 2139 Sevelamer Carbonate 2,400 MG TIDAC 08/21 0800 AC 08/23 PO 0903 Sevelamer Carbonate 1,600 MG Q4P PRN 08/21 0300 AC PO Tiotropium Dewart 1 PUF DAILY 08/21 0900 AC 08/23 INH 0856 Laboratory Tests 08/23/17 0735: Anion Gap 18 H, Estimated GFR 9 L, BUN/Creatinine Ratio 5.2 L, CBC w Diff NO MAN DIFF REQ, RBC 4.24 L, MCV 88.2, MCH 28.6, MCHC 32.4 L, RDW 15.9 H, MPV 8.2, Gran % 58.4, Lymphocytes % 23.9, Monocytes % 13.1 H, Eosinophils % 3.8, Basophils % 0.8, Absolute Granulocytes 4.2, Absolute Lymphocytes 1.7, Absolute Monocytes 0.9 H, Absolute Eosinophils 0.3, Absolute Basophils 0.1 08/22/17 1130: 08/22/17 1042: Fluid WBC Cancelled, Fld Total RBCs Counted Cancelled 08/22/17 1042: Fluid LDH Cancelled 08/22/17 0730: Anion Gap 26 H, Estimated GFR 6 L, BUN/Creatinine Ratio 4.3 L, Calcium 8.9, Phosphorus 5.5 H, Magnesium 2.0, Albumin 5.1 H, CBC w Diff NO MAN DIFF REQ, RBC 4.61 L, MCV 85.5, MCH 29.0, MCHC 33.9, RDW 15.9 H, MPV 7.8, Gran % 64.2, Lymphocytes % 24.3, Monocytes % 9.6 H, Eosinophils % 1.5, Basophils % 0.4, Absolute Granulocytes 5.1, Absolute Lymphocytes 1.9, Absolute Monocytes 0.8 H, Absolute Eosinophils 0.1, Absolute Basophils 0 Vital Signs Date Time Temp Pulse Resp B/P B/P Pulse O2 O2 Flow FiO2 Mean Ox Delivery Rate 08/23 0903 08/23 0903 08/23 0903 08/23 0620 98.3 81 18 114 91 Room Air 08/22 2347 102 106/74 08/22 2223 98.8 87 19 100/60 95 Room Air 08/22 2145 87 100/08/22 2145 08/22 2145 08/22 1600 98.1 96 18 /08/22 1500 Room Air Room Air 08/22 1322 100/08/22 1230 97.8 98 18 138/62 98 Disposition plans continue.
[2017-08-23 13:36] VITALS: BP 100/52
[2017-08-23 22:44] VITALS: BP 102/70
[2017-08-24 06:20] VITALS: BP 116/68
[2017-08-24 08:08] LABS: ABSOLUTE BASOPHIL COUNT 0.1 /CUMM (0.0-0.2); ABSOLUTE EOSINOPHIL COUNT 0.3 /CUMM (0.0-0.7); ABSOLUTE GRANULOCYTE CT 5.8 /CUMM (1.4-6.5); ABSOLUTE LYMPH COUNT 1.8 /CUMM (1.2-3.4); ABSOLUTE MONOCYTE COUNT 0.8 /CUMM (0.10-0.60); BASOPHIL % 0.6 % (0.0-2.0); EOSINOPHIL % 3.5 % (0-5); GRANULOCYTE % 65.8 % (42.2-75.2); HEMATOCRIT 32.5 % (42-52); MEAN CORPUSCULAR HGB 29.3 PG (27.0-31.0); MEAN CORPUSCULAR HGB CONC 33.8 G/DL (33.0-37.0); MEAN CORPUSCULAR VOLUME 86.7 FL (80.0-94.0); MEAN PLATELET VOLUME 8.2 FL (7.4-10.4); PLATELET COUNT 291 /CUMM (130-400); RBC DISTRIBUTION WIDTH 15.8 % (11.5-14.5); RED BLOOD CELL CT 3.74 /CUMM (4.70-6.10); WHITE BLOOD CELL COUNT 8.7 /CUMM (4.8-10.8)
--- NOTE | 2017-08-24 08:18 | PN- Housestaff ---
Subjective Follow-up For: End-stage renal disease, altered mental status Complaints: no complaints Subjective: Seen and examined at bedside, no overnight events. Patient denies chest pain, chest pressure, nausea, vomiting, abdominal pain Review of Systems Constitutional: Reports: no symptoms, see HPI. Objective Last 24 Hrs of Vital Signs/I&O Vital Signs Date Time Temp Pulse Resp B/P B/P Pulse O2 O2 Flow FiO2 Mean Ox Delivery Rate 08/24 1408 98.5 107 20 115/60 95 Room Air 08/24 1348 98.3 94 18 08/24 1347 98.3 94 18 11608/24 1347 98.3 94 18 /08/24 0822 Room Air Room Air 08/24 0620 98.3 94 18 / 95 Room Air 08/23 2245 /08/23 2245 /08/23 2245 74 08/23 2244 98.4 90 18 102/70 96 Intake & Output 08/24 1600 08/24 0800 08/24 0000 Intake Total 800 250 800 Output Total 1100 Balance -300 250 800 Intake, IV 10 Intake, Oral 800 240 800 Number 1 Bowel Movements Output, 1100 Dialysate Patient 216 lb Weight Weight Standing Scale Measurement Method Physical Exam General Appearance: Alert, Oriented X3, Cooperative, No Acute Distress HEENT: Atraumatic, PERRLA Cardiovascular: Normal S1, Normal S2, No Murmurs Lungs: Clear to Auscultation Abdomen: Soft, No Tenderness, No Hepatospenomegaly Neurological: Strength at 5/5 X4 Ext, Normal Tone, Sensation Intact, Cranial Nerves 3-12 NL Extremities: No Edema Current Medications: Current Medications Sig/Grace Start time Last Medication Dose Route Stop Time Status Admin Acetaminophen 650 MG Q6P PRN 08/21 599 AC PO Aripiprazole 400 MG Q28D 08/22 1000 AC 08/22 IM 1323 Aspirin Buffered 81 MG 08/21 08 AC 08/24 PO 1347 Atorvastatin Calcium 40 MG 1700 08/21 1700 AC 08/23 PO 1642 Benztropine Mesylate 0.5 MG BID 08/21 09 AC 08/24 PO 1347 Calcium Carbonate 500 MG ONCE ONE 08/23 2244 DC 08/23 PO 08/23 Cinacalcet 30 MG DAILY 08/21 0900 AC 08/24 PO 1349 Furosemide 80 MG 0800,2200 08/21 0800 AC 08/24 PO 1347 Gabapentin 300 MG AT BEDTIME 08/21 2100 AC 08/23 PO 2043 Heparin Sodium 5,000 UNIT Q8 08/21 06 AC 08/24 (Porcine) SC 1349 Hydralazine HCl 20 MG BID 08/21 0900 AC 08/24 PO 1347 Labetalol HCl 100 MG BID 08/21 09 AC 08/24 PO 1348 Lamotrigine 50 MG 1000 08/22 1000 AC 08/24 PO 0508 1001 1348 Multivitamins 1 TAB 1000 08/21 1000 AC 08/24 PO 1348 Nitroglycerin 0.4 MG DAILY NEEDED PRN 08/21 0300 AC TOP Oxcarbazepine 600 MG BID 08/21 09 AC 08/24 PO 1348 Patient Medication 1 ED ONE ONE 08/23 1600 NE Teaching ED 08/23 1601 Patient Medication 1 ED ONE ONE 08/23 1600 NE Teaching ED 08/23 1601 Propranolol HCl 10 MG BID 08/21 09 AC 08/24 PO 1347 Quetiapine Fumarate 400 MG QPM 08/22 2100 AC 08/23 PO 2037 Sevelamer Carbonate 2,400 MG TIDAC 08/21 08 AC 08/24 PO 1348 Sevelamer Carbonate 1,600 MG Q4P PRN 08/21 0300 PO Tiotropium [place] 1 PUF DAILY 08/21 09 AC 08/24 INH 1349 Last 24 Hrs of Lab/Freddy Results Last 24 Hrs of Labs/Mics: Laboratory Tests 08/24/17 0745: Anion Gap 21 H, Estimated GFR 6 L, BUN/Creatinine Ratio 6.4 L, Calcium 8.8, CBC w Diff NO MAN DIFF REQ, RBC 3.74 L, MCV 86.7, MCH 29.3, MCHC 33.8, RDW 15.8 H, MPV 8.2, Gran % 65.8, Lymphocytes % 20.8, Monocytes % 9.3, Eosinophils % 3.5 , Basophils % 0.6, Absolute Granulocytes 5.8, Absolute Lymphocytes 1.8, Absolute Monocytes 0.8 H, Absolute Eosinophils 0.3, Absolute Basophils 0.1 Assessment/Plan Assessment: 61 yo male with past medical history of ESRD on dialysis, CHF ef 45-50%, hypertension, hyperlipidemia, bipolar disorder, status post recent cardiac catheter and stents at [facility] in February 2017, cardiac arrest while in the catheter lab requiring ICU stay, hospital stay 3 months for acute blood loss anemia and CHF exacerbation and dialysis, was discharged about 1 months ago came to the ambulance with chief complaint of altered mental status. Assessment and plan: Altered mental status secondary due to uremia [end-stage renal disease missed dialysis] History of bipolar, hypertension, COPD, CHF. * Patient getting dialysis Sunday, Sunday, Sunday. Patient being followed by nephrology. * CBC and BEP daily. * Continue home medications. * 1200 fluid restriction and renal diet. * Patient's intact PTH is elevated with normal calcium and low vitamin D. Given his end-stage renal disease elevated PTH could be a secondary response. * Patient is seen by psychiatry who suggested to give Abilify dose for this month and continue his psych medication including Seroquel 400. * Spoke with special education case manager amandeep is working with the conservator for discharge disposition. Plan-discharge disposition will be discussed with the case management. Problem List: 1. ESRD (end stage renal disease) Pain Ratin Pain Location: none Pain Goal: Remain pain free Pain Plan: tylenol Tomorrow's Labs & Rationales: cbc,bep
--- NOTE | 2017-08-24 10:23 | PN- Nephrology ---
Assessment/Plan Nephrology Assessment: 1. ESRD 2. Hypotension - resolved 3. Bipolar disorder with poor compliance with dialysis regimen Suggestion: 1. Hemodialysis today in progress with 1 L ultrafiltration as tolerated over 4 hours 2. Disposition plans pending 3. Psychiatry following Subjective Subjective: Patient remains in very good spirits and is fully alert and oriented. Seen with hemodialysis which is currently in progress. Labs reviewed. Conservator or to be notified if not already done. Awaiting disposition plans. Objective Vital Signs and I&Os Vital Signs Date Time Temp Pulse Resp B/P B/P Pulse O2 O2 Flow FiO2 Mean Ox Delivery Rate 08/24 0822 Room Air Room Air 08/24 0620 98.3 94 18 116/68 95 Room Air 08/23 2245 102/68 08/23 2245 102/68 08/23 2245 74 102/68 08/23 2244 98.4 90 18 102/70 96 08/23 1336 97.8 52 18 100/52 97 Room Air Intake & Output 08/24 1600 08/24 0400 08/23 1600 08/23 0400 08/22 1600 08/22 0400 Intake Total 250 800 600 340 760 460 Output Total 0 Balance 250 800 600 340 760 460 Intake, IV 10 Intake, Oral 240 800 600 340 760 460 Number 1 Bowel Movements Output, Urine 0 Patient 216 lb 192 lb 196 lb 194 lb Weight Weight Standing Scale Bed scale Bed scale Measurement Method Physical Exam: General: Well-developed white male in no acute distress Skin: No rash or jaundice HEENT: Conjunctivae pink, sclerae anicteric, mucous membranes moist Neck: Without masses or thyromegaly, no supraclavicular or cervical adenopathy Chest: Clear to P & A Heart: Regular rate and rhythm without S3 or rub Abdomen: Soft and nontender without palpable masses or organomegaly Extremities: No cyanosis or edema, left lower arm AVF patent Neuro: Awake and alert, oriented 3, no focal findings, no asterixis or myoclonus Results Pertinent Lab Results: Laboratory Tests 08/24 08/23 0745 0735 Chemistry Sodium (137 - 145 mmol/L) 134 L 141 Potassium (3.5 - 5.1 mmol/L) 4.0 4.5 Chloride (98 - 107 mmol/L) 91 L 96 L Carbon Dioxide (22 - 30 mmol/L) 22 27 Anion Gap (5 - 16) 21 H 18 H BUN (9 - 20 mg/dL) 55 H 33 H Creatinine (0.7 - 1.2 mg/dL) 8.6 *H 6.4 *H Estimated GFR (>60 ml/min) 6 L 9 L BUN/Creatinine Ratio (7 - 25 %) 6.4 L 5.2 L Calcium (8.4 - 10.2 mg/dL) 8.8 Hematology CBC w Diff NO MAN DIFF REQ NO MAN DIFF REQ WBC (4.8 - 10.8 /CUMM) 8.7 7.2 RBC (4.70 - 6.10 /CUMM) 3.74 L 4.24 L Hgb (14.0 - 18.0 G/DL) 11.0 L 12.1 L Hct (42 - 52 %) 32.5 L 37.4 L MCV (80.0 - 94.0 FL) 86.7 88.2 MCH (27.0 - 31.0 PG) 29.3 28.6 MCHC (33.0 - 37.0 G/DL) 33.8 32.4 L RDW (11.5 - 14.5 %) 15.8 H 15.9 H Plt Count (130 - 400 /CUMM) 291 293 MPV (7.4 - 10.4 FL) 8.2 8.2 Gran % (42.2 - 75.2 %) 65.8 58.4 Lymphocytes % (20.5 - 51.1 %) 20.8 23.9 Monocytes % (1.7 - 9.3 %) 9.3 13.1 H Eosinophils % (0 - 5 %) 3.5 3.8 Basophils % (0.0 - 2.0 %) 0.6 0.8 Absolute Granulocytes (1.4 - 6.5 /CUMM) 5.8 4.2 Absolute Lymphocytes (1.2 - 3.4 /CUMM) 1.8 1.7 Absolute Monocytes (0.10 - 0.60 /CUMM) 0.8 H 0.9 H Absolute Eosinophils (0.0 - 0.7 /CUMM) 0.3 0.3 Absolute Basophils (0.0 - 0.2 /CUMM) 0.1 0.1 08/22 08/22 08/22 1130 1042 1042 Chemistry BUN (9 - 20 mg/dL) 11 Other Body Source Fluid WBC Cancelled Fld Total RBCs Counted Cancelled Fluid LDH Cancelled 08/22 0730 Chemistry Sodium (137 - 145 mmol/L) 144 Potassium (3.5 - 5.1 mmol/L) 5.0 Chloride (98 - 107 mmol/L) 95 L Carbon Dioxide (22 - 30 mmol/L) 24 Anion Gap (5 - 16) 26 H BUN (9 - 20 mg/dL) 38 H Creatinine (0.7 - 1.2 mg/dL) 8.9 *H Estimated GFR (>60 ml/min) 6 L BUN/Creatinine Ratio (7 - 25 %) 4.3 L Calcium (8.4 - 10.2 mg/dL) 8.9 Phosphorus (2.5 - 4.5 mg/dL) 5.5 H Magnesium (1.6 - 2.3 mg/dL) 2.0 Albumin (3.5 - 5.0 g/dL) 5.1 H Hematology CBC w Diff NO MAN DIFF REQ WBC (4.8 - 10.8 /CUMM) 7.9 RBC (4.70 - 6.10 /CUMM) 4.61 L Hgb (14.0 - 18.0 G/DL) 13.4 L Hct (42 - 52 %) 39.4 L MCV (80.0 - 94.0 FL) 85.5 MCH (27.0 - 31.0 PG) 29.0 MCHC (33.0 - 37.0 G/DL) 33.9 RDW (11.5 - 14.5 %) 15.9 H Plt Count (130 - 400 /CUMM) 334 MPV (7.4 - 10.4 FL) 7.8 Gran % (42.2 - 75.2 %) 64.2 Lymphocytes % (20.5 - 51.1 %) 24.3 Monocytes % (1.7 - 9.3 %) 9.6 H Eosinophils % (0 - 5 %) 1.5 Basophils % (0.0 - 2.0 %) 0.4 Absolute Granulocytes (1.4 - 6.5 /CUMM) 5.1 Absolute Lymphocytes (1.2 - 3.4 /CUMM) 1.9 Absolute Monocytes (0.10 - 0.60 /CUMM) 0.8 H Absolute Eosinophils (0.0 - 0.7 /CUMM) 0.1 Absolute Basophils (0.0 - 0.2 /CUMM) 0
--- NOTE | 2017-08-24 11:15 | PN- Att Addend ---
Attending Addendum Attending Brief Note No new complaints. Vital signs are stable no fever. Patient had hemodialysis at the present time which continues 3 times a week. No new changes on physical. Disposition plans continue. Intake & Output 08/24 1600 08/24 0400 08/23 0400 08/22 1600 08/22 0400 Intake Total 250 800 600 340 760 460 Output Total 0 Balance 250 800 600 340 760 460 Intake, IV 10 Intake, Oral 240 800 600 340 760 460 Number 1 Bowel Movements Output, Urine 0 Patient 216 lb 192 lb 196 lb 194 lb Weight Weight Standing Scale Bed scale Bed scale Measurement Method Current Medications Sig/Grace Start time Last Medication Dose Route Stop Time Status Admin Acetaminophen 650 MG Q6P PRN 08/21 06 AC PO Aripiprazole 400 MG Q28D 08/22 1000 AC 08/22 IM 1323 Aspirin Buffered 81 MG 0800 08/21 0800 AC 08/23 PO 0902 Atorvastatin Calcium 40 MG 1700 08/21 1700 AC 08/23 PO 1642 Benztropine Mesylate 0.5 MG BID 08/21 0900 AC 08/23 PO 2038 Calcium Carbonate 500 MG ONCE ONE 08/23 2245 DC 08/23 PO 08/23 224 2245 Cinacalcet 30 MG DAILY 08/21 0900 AC 08/23 PO 0903 Furosemide 80 MG 0800,2200 08/21 0800 AC 08/23 PO 2040 Gabapentin 300 MG AT BEDTIME 08/21 2100 AC 08/23 PO 2043 Heparin Sodium 5,000 UNIT Q8 08/21 06 AC 08/24 (Porcine) SC 0544 Hydralazine HCl 20 MG BID 08/21 0900 AC 08/23 PO 0903 Labetalol HCl 100 MG BID 08/21 0900 AC 08/23 PO 0903 Lamotrigine 50 MG 1000 08/22 1000 AC 08/23 PO 05/08 1001 0903 Multivitamins 1 TAB 1000 08/21 1000 AC 08/23 PO 0903 Nitroglycerin 0.4 MG DAILY NEEDED PRN 08/21 0300 AC TOP Oxcarbazepine 600 MG BID 08/21 0900 AC 08/23 PO 2038 Patient Medication 1 ED ONE ONE 08/23 1600 NH Teaching ED 08/23 1601 Patient Medication 1 ED ONE ONE 08/23 1600 NH Teaching ED 08/23 1601 Propranolol HCl 10 MG BID 08/21 0900 AC 08/23 PO 0903 Quetiapine Fumarate 400 MG QPM 08/22 2100 AC 08/23 PO 2037 Sevelamer Carbonate 2,400 MG TIDAC 08/21 0800 AC 08/24 PO 0801 Sevelamer Carbonate 1,600 MG Q4P PRN 08/21 0300 AC PO Tiotropium [place] 1 PUF DAILY 08/21 09 AC 08/23 INH 0856 Laboratory Tests 08/24/17 0745: Anion Gap 21 H, Estimated GFR 6 L, BUN/Creatinine Ratio 6.4 L, Calcium 8.8, CBC w Diff NO MAN DIFF REQ, RBC 3.74 L, MCV 86.7, MCH 29.3, MCHC 33.8, RDW 15.8 H, MPV 8.2, Gran % 65.8, Lymphocytes % 20.8, Monocytes % 9.3, Eosinophils % 3.5 , Basophils % 0.6, Absolute Granulocytes 5.8, Absolute Lymphocytes 1.8, Absolute Monocytes 0.8 H, Absolute Eosinophils 0.3, Absolute Basophils 0.1 08/23/17 0735: Anion Gap 18 H, Estimated GFR 9 L, BUN/Creatinine Ratio 5.2 L, CBC w Diff NO MAN DIFF REQ, RBC 4.24 L, MCV 88.2, MCH 28.6, MCHC 32.4 L, RDW 15.9 H, MPV 8.2, Gran % 58.4, Lymphocytes % 23.9, Monocytes % 13.1 H, Eosinophils % 3.8, Basophils % 0.8, Absolute Granulocytes 4.2, Absolute Lymphocytes 1.7, Absolute Monocytes 0.9 H, Absolute Eosinophils 0.3, Absolute Basophils 0.1 08/22/17 1130: 08/22/17 1042: Fluid WBC Cancelled, Fld Total RBCs Counted Cancelled 08/22/17 1042: Fluid LDH Cancelled 08/22/17 0730: Anion Gap 26 H, Estimated GFR 6 L, BUN/Creatinine Ratio 4.3 L, Calcium 8.9, Phosphorus 5.5 H, Magnesium 2.0, Albumin 5.1 H, CBC w Diff NO MAN DIFF REQ, RBC 4.61 L, MCV 85.5, MCH 29.0, MCHC 33.9, RDW 15.9 H, MPV 7.8, Gran % 64.2, Lymphocytes % 24.3, Monocytes % 9.6 H, Eosinophils % 1.5, Basophils % 0.4, Absolute Granulocytes 5.1, Absolute Lymphocytes 1.9, Absolute Monocytes 0.8 H, Absolute Eosinophils 0.1, Absolute Basophils 0 Microbiology 08/22 1042 BODY FLUID: Body Fluid Culture - CAN Cancelled: Cancelled via OE: Per MD Decision 08/22 1041 BODY FLUID: Gram Stain - CAN Cancelled: Cancelled via OE: Per MD Decision Vital Signs Date Time Temp Pulse Resp B/P B/P Pulse O2 O2 Flow FiO2 Mean Ox Delivery Rate 08/24 0822 Room Air Room Air 08/24 0620 98.3 94 18 116/68 95 Room Air 08/23 2245 102/68 08/23 2245 102/68 08/23 2245 74 102/68 08/23 2244 98.4 90 18 102/70 96 08/23 1336 97.8 52 18 100/52 97 Room Air
[2017-08-24 14:08] VITALS: BP 115/60
[2017-08-24 22:45] VITALS: BP 122/60
[2017-08-25 06:54] VITALS: BP 124/80; BP 136/76
--- NOTE | 2017-08-25 09:47 | PN- Housestaff ---
See Addendum Subjective Follow-up For: Uremic encephalopathy Subjective: No further events. Patient did try to leave last night to go do his laundry. It was explained to him that this is not how it hospital works. He is oriented Review of Systems Constitutional: Reports: no symptoms. EENTM: Reports: no symptoms. Cardiovascular: Reports: no symptoms. Respiratory: Reports: no symptoms. Gastrointestinal: Reports: no symptoms. Genitourinary: Reports: no symptoms. Musculoskeletal: Reports: no symptoms. Skin: Reports: no symptoms. Neurological/Psychological: Reports: see HPI. Hematologic/Endocrine: Reports: no symptoms. Immunologic/Allergic: Reports: no symptoms. Objective Last 24 Hrs of Vital Signs/I&O Vital Signs Date Time Temp Pulse Resp B/P B/P Pulse O2 O2 Flow FiO2 Mean Ox Delivery Rate 08/25 0808 98.9 52 20 124/80 08/25 0806 98.9 52 20 124/80 08/25 0805 98.9 52 20 124/80 08/25 0654 98.9 52 20 124/ 929 Room Air 08/24 2245 99.2 104 20 122/60 96 Room Air 08/24 2217 104 122/60 08/24 1408 98.5 107 20 115/60 95 Room Air 08/24 1348 98.3 94 18 116/68 08/24 1347 98.3 94 18 116/68 08/24 1347 98.3 94 18 116/68 Intake & Output 08/25 1600 08/25 0800 08/25 0000 Intake Total 490 490 Output Total Balance 490 490 Intake, IV 10 10 Intake, Oral 480 480 Physical Exam General Appearance: Alert, Oriented X3, Cooperative, No Acute Distress Cardiovascular: Regular Rate, Normal S1, Normal S2 Lungs: Clear to Auscultation, Normal Air Movement Abdomen: Normal Bowel Sounds, Soft, No Tenderness Extremities: No Edema, Normal Pulses, No Tenderness/Swelling Current Medications: Current Medications Sig/Grace Start time Last Medication Dose Route Stop Time Status Admin Acetaminophen 650 MG Q6P PRN 08/21 0600 AC PO Aripiprazole 400 MG Q28D 08/22 1000 AC 08/22 IM 1323 Aspirin Buffered 81 MG 0808/21 0800 AC 08/25 PO 0807 Atorvastatin Calcium 40 MG 1700 08/21 1700 AC 08/24 PO 1744 Benztropine Mesylate 0.5 MG BID 08/21 0900 AC 08/25 PO 0806 Calcium Carbonate 500 MG TID PRN 08/25 0930 AC PO Cinacalcet 30 MG DAILY 08/21 09 AC 08/25 PO 0805 Furosemide 80 MG 0800,2200 08/21 0800 AC 08/25 PO 0806 Gabapentin 300 MG AT BEDTIME 08/21 2100 AC 08/24 PO 2047 Heparin Sodium 5,000 UNIT Q8 08/21 0600 AC 08/25 (Porcine) CO 0454 Hydralazine HCl 20 MG BID 08/21 0900 AC 08/25 PO 0806 Labetalol HCl 100 MG BID 08/21 0900 AC 08/25 PO 0805 Lamotrigine 50 MG 1000 08/22 1000 AC 08/25 PO 09/04 1001 0916 Multivitamins 1 TAB 1000 08/21 1000 AC 08/25 PO 0915 Nitroglycerin 0.4 MG DAILY NEEDED PRN 08/21 0300 AC TOP Oxcarbazepine 600 MG BID 08/21 09 AC 08/25 PO 0808 Patient Medication 1 ED ONE ONE 08/24 1545 DC Teaching ED 08/24 1546 Propranolol HCl 10 MG BID 08/21 0900 AC 08/25 PO 0808 Quetiapine Fumarate 400 MG QPM 08/22 2100 AC 08/24 PO 2047 Sevelamer Carbonate 2,400 MG TIDAC 08/21 08 AC 08/25 PO 0806 Sevelamer Carbonate 1,600 MG Q4P PRN 08/21 0300 AC 08/24 PO 2030 Tiotropium [place] 1 PUF DAILY 08/21 09 AC 08/25 INH 0806 Last 24 Hrs of Lab/Freddy Results Last 24 Hrs of Labs/Mics: Laboratory Tests 08/25/17 0709: Anion Gap 17 H, Estimated GFR 10 L, BUN/Creatinine Ratio 5.9 L, PTH Intact Pending Assessment/Plan Assessment: 61 yo male with past medical history of ESRD on dialysis, CHF ef 45-50%, hypertension, hyperlipidemia, bipolar disorder, status post recent cardiac catheter and stents at [facility] in February 2017, cardiac arrest while in the catheter lab requiring ICU stay, hospital stay 3 months for acute blood loss anemia and CHF exacerbation and dialysis, was discharged about 1 months ago came to the ambulance with chief complaint of altered mental status. Assessment and plan: Altered mental status secondary due to uremia [end-stage renal disease missed dialysis] History of bipolar, hypertension, COPD, CHF. * Patient getting dialysis Sunday, Sunday, Sunday. Patient being followed by nephrology. * CBC and BEP daily. * Continue home medications. * 1200 fluid restriction and renal diet. * Patient's intact PTH is elevated with normal calcium and low vitamin D. Given his end-stage renal disease elevated PTH could be a secondary response. * Patient is seen by psychiatry who suggested to give Abilify dose for this month and continue his psych medication including Seroquel 400. * Spoke with case advocate amandeep is working with the conservator for discharge disposition. Plan-discharge disposition will be discussed with the case management. Patient would like to go home but unclear if he is stable at this time. Problem List: 1. Mental status change Pain Ratin Pain Location: no Pain Goal: Remain pain free Pain Plan: see a/p Tomorrow's Labs & Rationales: bep
[2017-08-25 15:06] VITALS: BP 132/78
[2017-08-25 22:28] VITALS: BP 148/70
[2017-08-26 06:22] VITALS: BP 140/80
--- NOTE | 2017-08-26 09:01 | PN- Housestaff ---
See Addendum Subjective Follow-up For: End-stage renal disease, bipolar Subjective: No overnight events. Patient says he feels very good this morning and is looking to go home. He does not have any other complaints. Review of Systems Constitutional: Reports: no symptoms. EENTM: Reports: no symptoms. Cardiovascular: Reports: no symptoms. Respiratory: Reports: no symptoms. Gastrointestinal: Reports: no symptoms. Genitourinary: Reports: no symptoms. Musculoskeletal: Reports: no symptoms. Skin: Reports: no symptoms. Neurological/Psychological: Reports: see HPI. Hematologic/Endocrine: Reports: no symptoms. Immunologic/Allergic: Reports: no symptoms. Objective Last 24 Hrs of Vital Signs/I&O Vital Signs Date Time Temp Pulse Resp B/P B/P Pulse O2 O2 Flow FiO2 Mean Ox Delivery Rate 08/27 815 98.5 79 20 140/80 08/26 0816 98.5 79 20 140/80 08/26 0815 98.5 79 20 140/80 08/26 0622 98.5 79 20 140/80 98 Room Air 08/25 2228 98.2 88 20 148/70 97 08/25 2104 88 148/70 08/25 2103 88 148/70 08/25 2103 88 148/70 08/25 1506 98.2 83 20 132/78 98 Room Air Intake & Output 08/26 1600 08/26 0800 08/26 0000 Intake Total 0 300 Output Total Balance 0 300 Intake, Oral 0 300 Patient 102.994 kg Weight Physical Exam General Appearance: Alert, Oriented X3, Cooperative, No Acute Distress Cardiovascular: Regular Rate, Normal S1, Normal S2 Lungs: Clear to Auscultation Abdomen: Normal Bowel Sounds, Soft, No Tenderness Extremities: No Edema, Normal Pulses, No Tenderness/Swelling Current Medications: Current Medications Sig/Grace Start time Last Medication Dose Route Stop Time Status Admin Acetaminophen 650 MG Q6P PRN 08/21 06 AC PO Aripiprazole 400 MG Q28D 08/22 1000 AC 08/22 IM 1323 Aspirin Buffered 81 MG 08/21 0800 AC 08/26 PO 0815 Atorvastatin Calcium 40 MG 1700 08/21 1700 AC 08/25 PO 1703 Benztropine Mesylate 0.5 MG BID 08/21 0900 AC 08/26 PO 0815 Calcium Carbonate 500 MG TID PRN 08/25 0930 AC 08/26 PO 0813 Cinacalcet 30 MG DAILY 08/21 0900 AC 08/26 PO 0814 Furosemide 80 MG 0800,2200 08/21 0800 AC 08/26 PO 0814 Gabapentin 300 MG AT BEDTIME 08/21 2100 AC 08/25 PO 2103 Heparin Sodium 5,000 UNIT Q8 08/21 0600 AC 08/26 (Porcine) SC 0549 Hydralazine HCl 20 MG BID 08/21 0900 AC 08/26 PO 0816 Labetalol HCl 100 MG BID 08/21 0900 AC 08/26 PO 0815 Lamotrigine 50 MG 1000 08/22 1000 AC 08/25 PO 0508 1001 0916 Multivitamins 1 TAB 1000 08/21 1000 AC 08/25 PO 0915 Nitroglycerin 0.4 MG DAILY NEEDED PRN 08/21 0300 AC TOP Oxcarbazepine 600 MG BID 08/21 0900 AC 08/26 PO 0815 Propranolol HCl 10 MG BID 08/21 0900 AC 08/26 PO 0816 Quetiapine Fumarate 400 MG QPM 08/22 2100 AC 08/25 PO 2103 Sevelamer Carbonate 2,400 MG TIDAC 08/21 0800 AC 08/26 PO 0814 Sevelamer Carbonate 1,600 MG Q4P PRN 08/21 0300 AC 08/24 PO 2030 Tiotropium [place] 1 PUF DAILY 08/21 09 AC 08/26 INH 0814 Last 24 Hrs of Lab/Freddy Results Last 24 Hrs of Labs/Mics: Laboratory Tests 08/26/17 0820: Sodium Pending, Potassium Pending, Chloride Pending, Carbon Dioxide Pending, Anion Gap Pending, BUN Pending, Creatinine Pending, BUN/Creatinine Ratio Pending Assessment/Plan Assessment: 61 yo male with past medical history of ESRD on dialysis, CHF ef 45-50%, hypertension, hyperlipidemia, bipolar disorder, status post recent cardiac catheter and stents at [facility] in February 2017, cardiac arrest while in the catheter lab requiring ICU stay, hospital stay 3 months for acute blood loss anemia and CHF exacerbation and dialysis, was discharged about 1 months ago came to the ambulance with chief complaint of altered mental status. Assessment and plan: Altered mental status secondary due to uremia [end-stage renal disease missed dialysis] History of bipolar, hypertension, COPD, CHF. * Patient getting dialysis Sunday, Sunday, Sunday. Patient being followed by nephrology. * CBC and BEP daily. * Continue home medications. * 1200 fluid restriction and renal diet. * Patient's intact PTH is elevated with normal calcium and low vitamin D. Given his end-stage renal disease elevated PTH could be a secondary response. * Patient is seen by psychiatry who suggested to give Abilify dose for this month and continue his psych medication including Seroquel 400. * Spoke with pillowcase turner amandeep is working with the conservator for discharge disposition. Plan-discharge disposition will be discussed with the case management. Patient would like to go home today. He says he missed his dialysis appointment because of depression. Will talk with pillowcase turner about discharge disposition. Problem List: 1. Bipolar disorder Pain Ratin Pain Location: no Pain Goal: Remain pain free Pain Plan: see a/p Tomorrow's Labs & Rationales: bep
--- NOTE | 2017-08-26 09:03 | Patient Discharge Instructions ---
Discharge Instructions General Discharge Information You were seen/treated for: End-stage renal disease, bipolar disorder Watch for these problems: Fever, chest pain, shortness of breath Special Instructions: Please take all medications as directed. Please follow-up with psychiatry, primary care, and nephrology. Diet Continue normal diet: No Recommended Diet: Renal Dialysis Activity Full Activity/No Limits: Yes Acute Coronary Syndrome Inclusion Criteria At DC or during hospital stay patient has or had the following: ACS DIAGNOSIS No Discharge Core Measures Meds if any: Prescribed or Continued at Discharge Meds if any: NOT Prescribed or Continued at Discharge Congestive Heart Failure Inclusion Criteria At DC or during hospital stay patient has or had the following: CHF DIAGNOSIS No Discharge Core Measures Meds if any: Prescribed or Continued at Discharge Meds if any: NOT Prescribed or Continued at Discharge Cerebrovascular accident Inclusion Criteria At DC or during hospital stay patient has or had the following: CVA/TIA Diagnosis No Discharge Core Measures Meds if any: Prescribed or Continued at Discharge Meds if any: NOT Prescribed or Continued at Discharge Venous thromboembolism Inclusion Criteria VTE Diagnosis No VTE Type NONE VTE Confirmed by (Test) NONE Discharge Core Measures - Per Current guidelines, there needs to be overlap - treatment for the first 5 days of Warfarin therapy. - If discharged on Warfarin prior to 5 days of - overlap therapy, the patient will need to be - assessed for post discharge needs including - *Post discharge parental anticoagulation - *Warfarin and/or parental anticoagulation education - *Follow up date to check INR post discharge At least 5 days overlap therapy as Inpatient No Meds if any: Prescribed or Continued at Discharge Note: Overlap Therapy is Warfarin and Anticoagulant Meds if any: NOT Prescribed or Continued at Discharge
[2017-08-26 13:41] VITALS: BP 140/80
[2017-08-26 21:54] VITALS: BP 148/80
[2017-08-27 06:06] VITALS: BP 158/84
--- NOTE | 2017-08-27 06:56 | PN- Housestaff ---
Subjective Follow-up For: End-stage renal disease, altered mental status Subjective: Patient seen and examined at bedside. No overnight events. NO complaints. Review of Systems Constitutional: Reports: no symptoms. Cardiovascular: Reports: no symptoms. Respiratory: Reports: no symptoms. Gastrointestinal: Reports: no symptoms. Genitourinary: Reports: no symptoms. Objective Last 24 Hrs of Vital Signs/I&O Vital Signs Date Time Temp Pulse Resp B/P B/P Pulse O2 O2 Flow FiO2 Mean Ox Delivery Rate 08/27 0800 Room Air 08/27 0606 98.1 79 20 158/84 97 Room Air 08/26 2154 99.0 78 20 148/80 97 08/26 2056 78 148/80 08/27 2055 78 148/80 08/27 2055 78 148/80 08/26 1341 99.7 81 20 140/80 97 Room Air Intake & Output 08/27 1600 08/27 0800 08/27 0000 Intake Total 200 400 Output Total Balance 200 400 Intake, Oral 200 400 Patient 201 lb Weight Weight Standing Scale Measurement Method Physical Exam General Appearance: Alert, Oriented X3, Cooperative, No Acute Distress Cardiovascular: Regular Rate, Normal S1, Normal S2, No Murmurs Lungs: Clear to Auscultation, Normal Air Movement Abdomen: Soft, No Tenderness, No Hepatospenomegaly Neurological: Strength at 5/5 X4 Ext, Normal Tone, Sensation Intact Current Medications: Current Medications Sig/Grace Start time Last Medication Dose Route Stop Time Status Admin Acetaminophen 650 MG Q6P PRN 08/21 06 AC PO Aripiprazole 400 MG Q28D 08/22 1000 AC 08/22 IM 1323 Aspirin Buffered 81 MG 0808/21 08 AC 08/26 PO 0815 Atorvastatin Calcium 40 MG 1700 08/21 1700 AC 08/26 PO 1642 Benztropine Mesylate 0.5 MG BID 08/21 09 AC 08/26 PO 2055 Calcium Carbonate 500 MG .STK-MED ONE 08/26 2002 DC PO 08/27 2003 Calcium Carbonate 500 MG TID PRN 08/25 929 AC 08/26 PO 2004 Cinacalcet 30 MG DAILY 08/21 09 AC 08/26 PO 08 Furosemide 80 MG 0800,2200 08/21 0800 AC 08/26 PO 2056 Gabapentin 300 MG AT BEDTIME 08/21 2100 AC 08/26 PO 2055 Heparin Sodium 5,000 UNIT Q8 08/21 0600 AC 08/27 (Porcine) SC 0607 Hydralazine HCl 20 MG BID 08/21 09 AC 08/26 PO 2055 Labetalol HCl 100 MG BID 08/21 09 AC 08/26 PO 2056 Lamotrigine 50 MG 1000 08/22 1000 AC 08/26 PO 0508 1001 0903 Multivitamins 1 TAB 1000 08/21 1000 AC 08/26 PO 0903 Nitroglycerin 0.4 MG DAILY NEEDED PRN 08/21 0300 AC TOP Oxcarbazepine 600 MG BID 08/21 0900 AC 08/26 PO 2056 Propranolol HCl 10 MG BID 08/21 09 AC 08/26 PO 2055 Quetiapine Fumarate 400 MG QPM 08/22 2100 AC 08/26 PO 2055 Sevelamer Carbonate 2,400 MG TIDAC 08/21 0800 AC 08/27 PO 0816 Sevelamer Carbonate 1,600 MG Q4P PRN 08/21 0300 AC 08/24 PO 2030 Tiotropium [place] 1 PUF DAILY 08/21 0900 AC 08/26 INH 0814 Last 24 Hrs of Lab/Freddy Results Last 24 Hrs of Labs/Mics: Laboratory Tests 08/27/17 0835: Anion Gap 16, Estimated GFR 6 L, BUN/Creatinine Ratio 6.8 L, Calcium 8.2 L, Phosphorus 3.7, Magnesium 2.3, Albumin 3.6, CBC w Diff NO MAN DIFF REQ, RBC 3.21 L, MCV 86.6, MCH 29.3, MCHC 33.8, RDW 15.6 H, MPV 7.7, Gran % 65.4, Lymphocytes % 19.8 L, Monocytes % 7.4, Eosinophils % 6.0 H, Basophils % 1.4, Absolute Granulocytes 4.9, Absolute Lymphocytes 1.5, Absolute Monocytes 0.5, Absolute Eosinophils 0.4, Absolute Basophils 0.1 08/27/17 0804: Anion Gap 17 H, Estimated GFR 6 L, BUN/Creatinine Ratio 6.6 L Assessment/Plan Assessment: 61 yo male with past medical history of ESRD on dialysis, CHF ef 45-50%, hypertension, hyperlipidemia, bipolar disorder, status post recent cardiac catheter and stents at [facility] in February 2017, cardiac arrest while in the catheter lab requiring ICU stay, hospital stay 3 months for acute blood loss anemia and CHF exacerbation and dialysis, was discharged about 1 months ago came to the ambulance with chief complaint of altered mental status. Assessment and plan: Altered mental status secondary due to uremia [end-stage renal disease missed dialysis] History of bipolar, hypertension, COPD, CHF. * Patient getting dialysis Sunday, Sunday, Sunday. Patient being followed by nephrology. * CBC and BEP daily. * Continue home medications. * 1200 fluid restriction and renal diet. * Patient was seen by psychiatry who suggested to give Abilify dose for this month and continue his psych medication including Seroquel 400. * Spoke with manager of case amandeep who is working with the conservator for discharge disposition. Plan-discharge disposition will be discussed with the case management. Problem List: 1. Mental status change 2. ESRD (end stage renal disease) on dialysis Pain Ratin Pain Location: none Pain Goal: Remain pain free Pain Plan: tylenol Tomorrow's Labs & Rationales: cbc,bep
[2017-08-27 08:56] LABS: ABSOLUTE BASOPHIL COUNT 0.1 /CUMM (0.0-0.2); ABSOLUTE EOSINOPHIL COUNT 0.4 /CUMM (0.0-0.7); ABSOLUTE GRANULOCYTE CT 4.9 /CUMM (1.4-6.5); ABSOLUTE LYMPH COUNT 1.5 /CUMM (1.2-3.4); ABSOLUTE MONOCYTE COUNT 0.5 /CUMM (0.10-0.60); BASOPHIL % 1.4 % (0.0-2.0); GRANULOCYTE % 65.4 % (42.2-75.2); HEMATOCRIT 27.8 % (42-52); MEAN CORPUSCULAR HGB 29.3 PG (27.0-31.0); MEAN CORPUSCULAR HGB CONC 33.8 G/DL (33.0-37.0); MEAN CORPUSCULAR VOLUME 86.6 FL (80.0-94.0); MEAN PLATELET VOLUME 7.7 FL (7.4-10.4); PLATELET COUNT 333 /CUMM (130-400); RBC DISTRIBUTION WIDTH 15.6 % (11.5-14.5); RED BLOOD CELL CT 3.21 /CUMM (4.70-6.10); WHITE BLOOD CELL COUNT 7.4 /CUMM (4.8-10.8)
--- NOTE | 2017-08-27 11:30 | PN- Nephrology ---
Assessment/Plan Nephrology Assessment: Pt on dialysis now. Non-compliant with outpatient dialysis treatment (doesn't show up). Does well while in hospital (gets regular dialysis). Would favor fdc placement as I see reason to expect a change in his compliance. Steve Madrigal MD Suggestion: . Subjective Subjective: Pt on dialysis now. Admitted with dialysis non-compliance and failing to go to outpatient dialysis Objective Vital Signs and I&Os M NAD BP 158/84 79 98.1 Lungs clear Cor RRR Abd soft Ext neg edema Results Pertinent Lab Results: 135 / 93 / 52 / 4.7 / 24 / 8.0\
--- NOTE | 2017-08-27 13:39 | PN- Att Addend ---
Attending Addendum Attending Brief Note No no complaints. Patient back to baseline mentally. Hemodialysis in progress Vital signs are stable no fever has no new changes on physical. Plans continue for discharge planning. Intake & Output 08/27 1600 08/27 0808/27 0000 08/26 1600 08/26 0000 Intake Total 200 400 60 0 300 Output Total Balance 200 400 60 0 300 Intake, Oral 200 400 60 0 300 Patient 201 lb 227 lb Weight Weight Standing Scale Measurement Method Current Medications Sig/Grace Start time Last Medication Dose Route Stop Time Status Admin Acetaminophen 650 MG Q6P PRN 08/21 06 AC PO Aripiprazole 400 MG Q28D 08/22 1000 AC 08/22 IM 1323 Aspirin Buffered 81 MG 0800 08/21 0800 AC 08/27 PO 1319 Atorvastatin Calcium 40 MG 1700 08/21 1700 AC 08/26 PO 1642 Benztropine Mesylate 0.5 MG BID 08/21 09 AC 08/27 PO 1322 Calcium Carbonate 500 MG .STK-MED ONE 08/26 2002 DC PO 08/27 2003 Calcium Carbonate 500 MG TID PRN 08/25 0930 AC 08/26 PO 2004 Cinacalcet 30 MG DAILY 08/21 09 AC 08/27 PO 1320 Furosemide 80 MG 0800,2200 08/21 0800 AC 08/27 PO 1322 Gabapentin 300 MG AT BEDTIME 08/21 2100 AC 08/26 PO 2055 Heparin Sodium 5,000 UNIT Q8 08/21 06 AC 08/27 (Porcine) SC 1323 Hydralazine HCl 20 MG BID 08/21 09 AC 08/27 PO 1322 Labetalol HCl 100 MG BID 08/21 0900 AC 08/27 PO 1322 Lamotrigine 50 MG 1000 08/22 1000 AC 08/27 PO 0508 1001 1320 Multivitamins 1 TAB 1000 08/21 1000 AC 08/27 PO 1320 Nitroglycerin 0.4 MG DAILY NEEDED PRN 08/21 0300 AC TOP Oxcarbazepine 600 MG BID 08/21 09 AC 08/27 PO 1320 Propranolol HCl 10 MG BID 08/21 0900 AC 08/27 PO 1322 Quetiapine Fumarate 400 MG QPM 08/22 2100 AC 08/26 PO 205 Sevelamer Carbonate 2,400 MG TIDAC 08/21 0800 AC 08/27 PO 1320 Sevelamer Carbonate 1,600 MG Q4P PRN 08/21 0300 AC 08/24 PO 2030 Tiotropium [place] 1 PUF DAILY 08/21 0900 AC 08/27 INH 1323 Laboratory Tests 08/27/17 0835: Anion Gap 16, Estimated GFR 6 L, BUN/Creatinine Ratio 6.8 L, Calcium 8.2 L, Phosphorus 3.7, Magnesium 2.3, Albumin 3.6, CBC w Diff NO MAN DIFF REQ, RBC 3.21 L, MCV 86.6, MCH 29.3, MCHC 33.8, RDW 15.6 H, MPV 7.7, Gran % 65.4, Lymphocytes % 19.8 L, Monocytes % 7.4, Eosinophils % 6.0 H, Basophils % 1.4, Absolute Granulocytes 4.9, Absolute Lymphocytes 1.5, Absolute Monocytes 0.5, Absolute Eosinophils 0.4, Absolute Basophils 0.1 08/27/17 0804: Anion Gap 17 H, Estimated GFR 6 L, BUN/Creatinine Ratio 6.6 L 08/26/17 0820: Anion Gap 19 H, Estimated GFR 7 L, BUN/Creatinine Ratio 6.5 L
[2017-08-27 14:25] VITALS: BP 130/80
--- NOTE | 2017-08-28 04:53 | PN- Housestaff ---
Subjective Follow-up For: End-stage renal disease, altered mental status Complaints: no complaints Subjective: Patient seen and examined at bedside. No overnight events. NO complaints. Review of Systems Constitutional: Reports: no symptoms, see HPI. Objective Last 24 Hrs of Vital Signs/I&O Vital Signs Date Time Temp Pulse Resp B/P B/P Pulse O2 O2 Flow FiO2 Mean Ox Delivery Rate 08/28 09 80 160/90 08/28 0905 80 160/90 08/28 0905 80 160/90 08/28 0620 98.0 87 18 158/90 98 Room Air 08/28 0000 Room Air 08/27 2033 80 150/90 08/27 2033 80 150/90 08/27 203 80 150/90 08/27 1600 Room Air 08/27 1425 97.9 97 19 130/80 99 08/27 1322 99 130/80 08/27 1322 99 130/80 08/27 1322 99 130/80 Intake & Output 08/28 1600 08/28 0800 08/28 0000 Intake Total 200 600 Output Total Balance 200 600 Intake, Oral 200 600 Patient 230 lb Weight Weight Standing Scale Measurement Method Physical Exam General Appearance: Alert, Oriented X3, Cooperative, No Acute Distress Cardiovascular: Regular Rate, Normal S1, Normal S2, No Murmurs Lungs: Clear to Auscultation Abdomen: Soft, No Tenderness, No Hepatospenomegaly Neurological: Strength at 5/5 X4 Ext, Normal Tone, Sensation Intact, Cranial Nerves 3-12 NL Extremities: No Edema Current Medications: Current Medications Sig/Grace Start time Last Medication Dose Route Stop Time Status Admin Acetaminophen 650 MG Q6P PRN 08/21 06 AC PO Aripiprazole 400 MG Q28D 08/22 1000 AC 08/22 IM 1323 Aspirin Buffered 81 MG 08/21 08 AC 08/28 PO 0750 Atorvastatin Calcium 40 MG 1700 08/21 1700 AC 08/27 PO 1620 Benztropine Mesylate 0.5 MG BID 08/21 09 AC 08/28 PO 0903 Calcium Carbonate 500 MG TID PRN 08/25 929 AC 08/26 PO 2005 Cinacalcet 30 MG DAILY 08/21 09 AC 08/28 PO 0902 Furosemide 80 MG 0800,2200 08/21 08 AC 08/28 PO 0750 Gabapentin 300 MG AT BEDTIME 08/21 2100 AC 08/27 PO 2035 Heparin Sodium 5,000 UNIT Q8 08/21 0600 AC 08/28 (Porcine) SC 0606 Hydralazine HCl 20 MG BID 08/21 09 AC 08/28 PO 0905 Labetalol HCl 100 MG BID 08/21 09 AC 08/28 PO 0905 Lamotrigine 50 MG 1000 08/22 1000 AC 05 PO 0508 1001 0902 Multivitamins 1 TAB 1000 08/21 1000 AC 08/28 PO 0902 Nitroglycerin 0.4 MG DAILY NEEDED PRN 08/21 0300 AC TOP Oxcarbazepine 600 MG BID 08/21 09 AC 08/28 PO 0902 Patient Medication 1 ED ONE ONE 08/27 1445 DC 08/27 Teaching ED 08/27 1446 1640 Propranolol HCl 10 MG BID 08/21 09 AC 08/28 PO 0905 Quetiapine Fumarate 400 MG QPM 08/22 2100 AC 08/27 PO 2034 Sevelamer Carbonate 2,400 MG TIDAC 08/21 0800 AC 08/28 PO 1131 Sevelamer Carbonate 1,600 MG Q4P PRN 08/21 0300 AC 08/24 PO 2030 Tiotropium [place] 1 PUF DAILY 08/21 09 AC 08/28 INH 0902 Last 24 Hrs of Lab/Freddy Results Last 24 Hrs of Labs/Mics: Laboratory Tests 08/28/17 0816: Anion Gap 13, Estimated GFR 10 L, BUN/Creatinine Ratio 5.5 L Assessment/Plan Assessment: 61 yo male with past medical history of ESRD on dialysis, CHF ef 45-50%, hypertension, hyperlipidemia, bipolar disorder, status post recent cardiac catheter and stents at [facility] in February 2017, cardiac arrest while in the catheter lab requiring ICU stay, hospital stay 3 months for acute blood loss anemia and CHF exacerbation and dialysis, was discharged about 1 months ago came to the ambulance with chief complaint of altered mental status. Assessment and plan: Altered mental status secondary due to uremia [end-stage renal disease missed dialysis] History of bipolar, hypertension, COPD, CHF. * Patient getting dialysis Sunday, Sunday, Sunday. Patient being followed by nephrology. * CBC and BEP daily. * Continue home medications. * 1200 fluid restriction and renal diet. * Patient was seen by psychiatry who suggested to give Abilify dose for this month and continue his psych medication including Seroquel 400. * Spoke with continuous pillowcase cutter Gary who is working with the conservator for discharge disposition. Plan-discharge disposition will be discussed with the case management. Problem List: 1. Mental status change 2. ESRD (end stage renal disease) on dialysis Pain Ratin Pain Location: none Pain Goal: Remain pain free Pain Plan: tylenol Tomorrow's Labs & Rationales: cbc,bep
[2017-08-28 06:20] VITALS: BP 158/90
--- NOTE | 2017-08-28 13:12 | PN- Att Addend ---
Attending Addendum Attending Brief Note No new issues. Vital signs are stable no fever and no changes on physical patient is stable continues with hemodialysis 3 times a week and disposition plans again in progress. Intake & Output 08/28 04008/27 04008/26 040 Intake Total 200 600 680 400 60 300 Output Total 1.5 Balance 200 600 678.5 400 60 300 Intake, Oral 200 600 680 400 60 300 Output, 1.5 Dialysate Patient 230 lb 201 lb 227 lb Weight Weight Standing Scale Standing Scale Measurement Method Current Medications Sig/Grace Start time Last Medication Dose Route Stop Time Status Admin Acetaminophen 650 MG Q6P PRN 08/21 06 AC PO Aripiprazole 400 MG Q28D 08/22 1000 AC 08/22 IM 1323 Aspirin Buffered 81 MG 0808/21 0800 AC 08/28 PO 0750 Atorvastatin Calcium 40 MG 1700 08/21 1700 AC 08/27 PO 1620 Benztropine Mesylate 0.5 MG BID 08/21 0900 AC 08/28 PO 0903 Calcium Carbonate 500 MG TID PRN 08/25 0930 AC 08/28 PO 1257 Cinacalcet 30 MG DAILY 08/21 0900 AC 08/28 PO 0902 Furosemide 80 MG 0800,2200 08/21 0800 AC 08/28 PO 0750 Gabapentin 300 MG AT BEDTIME 08/21 2100 AC 08/27 PO 2035 Heparin Sodium 5,000 UNIT Q8 08/21 06 AC 08/28 (Porcine) SC 1300 Hydralazine HCl 20 MG BID 08/21 0900 AC 08/28 PO 0905 Labetalol HCl 100 MG BID 08/21 0900 AC 08/28 PO 0905 Lamotrigine 50 MG 1000 08/22 1000 AC 05 PO 0508 1001 0902 Multivitamins 1 TAB 1000 08/21 1000 AC 08/28 PO 0902 Nitroglycerin 0.4 MG DAILY NEEDED PRN 08/21 0300 AC TOP Oxcarbazepine 600 MG BID 08/21 09 AC 08/28 PO 0902 Patient Medication 1 ED ONE ONE 08/27 1445 DC 08/27 Teaching ED 08/27 1446 1640 Propranolol HCl 10 MG BID 08/21 0900 AC 08/28 PO 0905 Quetiapine Fumarate 400 MG QPM 08/22 2100 AC 08/27 PO 2034 Sevelamer Carbonate 2,400 MG TIDAC 08/21 0800 AC 08/28 PO 1131 Sevelamer Carbonate 1,600 MG Q4P PRN 08/21 0300 AC 08/24 PO 2030 Tiotropium [place] 1 PUF DAILY 08/21 0900 AC 08/28 INH 0902 Laboratory Tests 08/28 08/27 08/27 08/26 0816 0835 0804 0820 Chemistry Sodium (137 - 145 mmol/L) 137 131 L 131 L 135 L Potassium (3.5 - 5.1 mmol/L) 4.8 5.6 H 5.5 H 4.7 Chloride (98 - 107 mmol/L) 95 L 93 L 93 L 93 L Carbon Dioxide (22 - 30 mmol/L) 28 22 21 L 24 Anion Gap (5 - 16) 13 16 17 H 19 H BUN (9 - 20 mg/dL) 33 H 65 H 64 H 52 H Creatinine (0.7 - 1.2 mg/dL) 6.0 *H 9.5 *H 9.7 *H 8.0 *H Estimated GFR (>60 ml/min) 10 L 6 L 6 L 7 L BUN/Creatinine Ratio (7 - 25 %) 5.5 L 6.8 L 6.6 L 6.5 L Calcium (8.4 - 10.2 mg/dL) 8.2 L Phosphorus (2.5 - 4.5 mg/dL) 3.7 Magnesium (1.6 - 2.3 mg/dL) 2.3 Albumin (3.5 - 5.0 g/dL) 3.6 Hematology CBC w Diff NO MAN DIFF REQ WBC (4.8 - 10.8 /CUMM) 7.4 RBC (4.70 - 6.10 /CUMM) 3.21 L Hgb (14.0 - 18.0 G/DL) 9.4 L Hct (42 - 52 %) 27.8 L MCV (80.0 - 94.0 FL) 86.6 MCH (27.0 - 31.0 PG) 29.3 MCHC (33.0 - 37.0 G/DL) 33.8 RDW (11.5 - 14.5 %) 15.6 H Plt Count (130 - 400 /CUMM) 333 MPV (7.4 - 10.4 FL) 7.7 Gran % (42.2 - 75.2 %) 65.4 Lymphocytes % (20.5 - 51.1 %) 19.8 L Monocytes % (1.7 - 9.3 %) 7.4 Eosinophils % (0 - 5 %) 6.0 H Basophils % (0.0 - 2.0 %) 1.4 Absolute Granulocytes (1.4 - 6.5 /CUMM) 4.9 Absolute Lymphocytes (1.2 - 3.4 /CUMM) 1.5 Absolute Monocytes (0.10 - 0.60 /CUMM) 0.5 Absolute Eosinophils (0.0 - 0.7 /CUMM) 0.4 Absolute Basophils (0.0 - 0.2 /CUMM) 0.1 Vital Signs Date Time Temp Pulse Resp B/P B/P Pulse O2 O2 Flow FiO2 Mean Ox Delivery Rate 08/28 0905 80 160/90 08/28 0905 80 160/90 08/28 09 80 160/90 08/28 0620 98.0 87 18 158/90 98 Room Air 08/28 0000 Room Air 08/27 2033 80 150/90 08/27 2033 80 150/90 08/27 2033 80 150/90 08/27 1600 Room Air 08/27 1425 97.9 97 19 130/80 99 08/27 1322 99 130/80 08/27 1322 99 130/80 08/27 1322 99 130/80
[2017-08-28 14:44] VITALS: BP 140/80
[2017-08-28 22:37] VITALS: BP 170/100
[2017-08-28 23:31] VITALS: BP 150/90
[2017-08-29 06:20] VITALS: BP 164/88
--- NOTE | 2017-08-29 07:22 | PN- Housestaff ---
Subjective Follow-up For: End-stage renal disease, altered mental status Complaints: no complaints Subjective: Patient seen and examined at bedside. No overnight events. NO complaints. Review of Systems Constitutional: Reports: no symptoms, see HPI. Objective Last 24 Hrs of Vital Signs/I&O Vital Signs Date Time Temp Pulse Resp B/P B/P Pulse O2 O2 Flow FiO2 Mean Ox Delivery Rate 08/29 1206 Room Air Room Air 08/29 0841 36.8 93 19 172/82 08/29 0840 36.8 93 19 172/82 08/29 0839 36.8 93 19 172/82 08/29 0620 98.1 77 18 164/88 97 Room Air 08/28 2331 80 150/90 08/28 2237 98.3 82 20 170/100 96 08/28 2004 82 170/100 Intake & Output 08/29 1600 08/29 0800 08/29 0000 Intake Total 800 120 470 Output Total 400 Balance 400 120 470 Intake, Oral 800 120 470 Output, Urine 400 Patient 230 lb Weight Weight Bed scale Measurement Method Physical Exam General Appearance: Alert, Oriented X3, Cooperative, No Acute Distress Cardiovascular: Regular Rate, Normal S1, Normal S2, No Murmurs Lungs: Clear to Auscultation Abdomen: Soft, No Tenderness, No Hepatospenomegaly Neurological: Strength at 5/5 X4 Ext, Normal Tone, Sensation Intact Extremities: No Edema, Normal Pulses Current Medications: Current Medications Sig/Grace Start time Last Medication Dose Route Stop Time Status Admin Acetaminophen 650 MG Q6P PRN 08/21 06 AC PO Aripiprazole 400 MG Q28D 08/22 1000 AC 08/22 IM 1323 Aspirin Buffered 81 MG 08/21 08 AC 08/29 PO 0837 Atorvastatin Calcium 40 MG 1700 08/21 1700 AC 08/28 PO 1609 Benztropine Mesylate 0.5 MG BID 08/21 899 AC 08/29 PO 0840 Calcium Carbonate 500 MG TID PRN 08/25 0930 AC 08/29 PO 0854 Cinacalcet 30 MG DAILY 08/21 09 AC 08/29 PO 0842 Furosemide 80 MG 0800,2200 08/21 08 AC 08/29 PO 0837 Gabapentin 300 MG AT BEDTIME 08/21 2100 AC 08/28 PO 2003 Heparin Sodium 5,000 UNIT Q8 08/21 06 AC 08/29 (Porcine) SC 1313 Hydralazine HCl 20 MG BID 08/21 09 AC 08/29 PO 0839 Labetalol HCl 100 MG BID 08/21 0900 AC 08/29 PO 0841 Lamotrigine 50 MG 1000 08/22 1000 AC 08/29 PO 09/04 1001 0841 Multivitamins 1 TAB 1000 08/21 1000 AC 08/29 PO 0842 Nitroglycerin 0.4 MG DAILY NEEDED PRN 08/21 0300 AC TOP Oxcarbazepine 600 MG BID 08/21 09 AC 08/29 PO 0841 Patient Medication 1 ED ONE ONE 08/29 1115 DC 08/29 Teaching ED 08/29 1116 1128 Propranolol HCl 10 MG BID 08/21 09 AC 08/29 PO 0840 Quetiapine Fumarate 400 MG QPM 08/22 2100 AC 08/28 PO 2004 Sevelamer Carbonate 2,400 MG TIDAC 08/21 0800 AC 08/29 PO 1128 Sevelamer Carbonate 1,600 MG Q4P PRN 08/21 0300 AC 08/24 PO 2030 Tiotropium [place] 1 PUF DAILY 08/21 09 AC 08/29 INH 0836 Last 24 Hrs of Lab/Freddy Results Last 24 Hrs of Labs/Mics: Laboratory Tests 08/29/17 1300: Anion Gap 11, Estimated GFR 7 L, BUN/Creatinine Ratio 6.1 L, Phosphorus 3.4, Magnesium 2.0, CBC w Diff NO MAN DIFF REQ, RBC 3.28 L, MCV 86.7, MCH 29.5, MCHC 34.1, RDW 15.9 H, MPV 7.9, Gran % 68.9, Lymphocytes % 17.3 L, Monocytes % 7.5, Eosinophils % 5.7 H, Basophils % 0.6, Absolute Granulocytes 5.2, Absolute Lymphocytes 1.3, Absolute Monocytes 0.6, Absolute Eosinophils 0.4, Absolute Basophils 0 Assessment/Plan Assessment: 61 yo male with past medical history of ESRD on dialysis, CHF ef 45-50%, hypertension, hyperlipidemia, bipolar disorder, status post recent cardiac catheter and stents at [facility] in February 2017, cardiac arrest while in the catheter lab requiring ICU stay, hospital stay 3 months for acute blood loss anemia and CHF exacerbation and dialysis, was discharged about 1 months ago came to the ambulance with chief complaint of altered mental status. Assessment and plan: Altered mental status secondary due to uremia [end-stage renal disease missed dialysis] History of bipolar, hypertension, COPD, CHF. * Patient getting dialysis Sunday, Sunday, Sunday. Patient being followed by nephrology. * CBC and BEP daily. * Continue home medications. * 1200 fluid restriction and renal diet. * Patient was seen by psychiatry who suggested to give Abilify dose for this month and continue his psych medication including Seroquel 400. * Spoke with disability case manager Gary who is working with the conservator for discharge disposition. Plan-discharge disposition will be discussed with the case management. Problem List: 1. ESRD (end stage renal disease) on dialysis Pain Ratin Pain Location: none Pain Goal: Remain pain free Pain Plan: tylenol Tomorrow's Labs & Rationales: cbc,bep
--- NOTE | 2017-08-29 11:20 | PN- Nephrology ---
Assessment/Plan Nephrology Assessment: ESRD. noncompliant with dialysis (missed 2 weeks before coming in [facility]). Now better on meds and dialysis. Placement being worked on. Dialysis later today Steve Martinez Suggestion: . Subjective Subjective: Pt comfortable. For dialysis later today Objective Vital Signs and I&Os M NAD Skin neg rash Eyes anicteric ENT moist Lungs clear Cor RRR Abd soft Ext neg edema Results Pertinent Lab Results: Laboratory Tests 08/28 08/27 08/27 0816 0835 0804 Chemistry Sodium (137 - 145 mmol/L) 137 131 L 131 L Potassium (3.5 - 5.1 mmol/L) 4.8 5.6 H 5.5 H Chloride (98 - 107 mmol/L) 95 L 93 L 93 L Carbon Dioxide (22 - 30 mmol/L) 28 22 21 L Anion Gap (5 - 16) 13 16 17 H BUN (9 - 20 mg/dL) 33 H 65 H 64 H Creatinine (0.7 - 1.2 mg/dL) 6.0 *H 9.5 *H 9.7 *H Estimated GFR (>60 ml/min) 10 L 6 L 6 L BUN/Creatinine Ratio (7 - 25 %) 5.5 L 6.8 L 6.6 L Calcium (8.4 - 10.2 mg/dL) 8.2 L Phosphorus (2.5 - 4.5 mg/dL) 3.7 Magnesium (1.6 - 2.3 mg/dL) 2.3 Albumin (3.5 - 5.0 g/dL) 3.6 Hematology CBC w Diff NO MAN DIFF REQ WBC (4.8 - 10.8 /CUMM) 7.4 RBC (4.70 - 6.10 /CUMM) 3.21 L Hgb (14.0 - 18.0 G/DL) 9.4 L Hct (42 - 52 %) 27.8 L MCV (80.0 - 94.0 FL) 86.6 MCH (27.0 - 31.0 PG) 29.3 MCHC (33.0 - 37.0 G/DL) 33.8 RDW (11.5 - 14.5 %) 15.6 H Plt Count (130 - 400 /CUMM) 333 MPV (7.4 - 10.4 FL) 7.7 Gran % (42.2 - 75.2 %) 65.4 Lymphocytes % (20.5 - 51.1 %) 19.8 L Monocytes % (1.7 - 9.3 %) 7.4 Eosinophils % (0 - 5 %) 6.0 H Basophils % (0.0 - 2.0 %) 1.4 Absolute Granulocytes (1.4 - 6.5 /CUMM) 4.9 Absolute Lymphocytes (1.2 - 3.4 /CUMM) 1.5 Absolute Monocytes (0.10 - 0.60 /CUMM) 0.5 Absolute Eosinophils (0.0 - 0.7 /CUMM) 0.4 Absolute Basophils (0.0 - 0.2 /CUMM) 0.1
[2017-08-29 14:09] LABS: ABSOLUTE BASOPHIL COUNT 0 /CUMM (0.0-0.2); ABSOLUTE EOSINOPHIL COUNT 0.4 /CUMM (0.0-0.7); ABSOLUTE GRANULOCYTE CT 5.2 /CUMM (1.4-6.5); ABSOLUTE LYMPH COUNT 1.3 /CUMM (1.2-3.4); ABSOLUTE MONOCYTE COUNT 0.6 /CUMM (0.10-0.60); BASOPHIL % 0.6 % (0.0-2.0); EOSINOPHIL % 5.7 % (0-5); GRANULOCYTE % 68.9 % (42.2-75.2); HEMATOCRIT 28.4 % (42-52); MEAN CORPUSCULAR HGB 29.5 PG (27.0-31.0); MEAN CORPUSCULAR HGB CONC 34.1 G/DL (33.0-37.0); MEAN CORPUSCULAR VOLUME 86.7 FL (80.0-94.0); MEAN PLATELET VOLUME 7.9 FL (7.4-10.4); PLATELET COUNT 307 /CUMM (130-400); RBC DISTRIBUTION WIDTH 15.9 % (11.5-14.5); RED BLOOD CELL CT 3.28 /CUMM (4.70-6.10); WHITE BLOOD CELL COUNT 7.6 /CUMM (4.8-10.8)
--- NOTE | 2017-08-29 14:19 | PN- Att Addend ---
Attending Addendum Attending Brief Note No new complaints, ambulatory. Mental status back to baseline. Vital signs are stable, no new changes on physical, no fever. Continue hemodialysis treatment times a week and disposition plans continue. Intake & Output 08/29 04008/28 1600 08/28 0400 08/27 1600 08/27 0400 Intake Total 920 470 800 600 680 400 Output Total 400 1.5 Balance 520 470 800 600 678.5 400 Intake, Oral 920 470 800 600 680 400 Output, 1.5 Dialysate Output, Urine 400 Patient 230 lb 230 lb 201 lb Weight Weight Bed scale Standing Scale Standing Scale Measurement Method Current Medications Sig/Grace Start time Last Medication Dose Route Stop Time Status Admin Acetaminophen 650 MG Q6P PRN 08/21 06 AC PO Aripiprazole 400 MG Q28D 08/22 1000 AC 08/22 IM 1323 Aspirin Buffered 81 MG 0800 08/21 0800 AC 08/29 PO 0837 Atorvastatin Calcium 40 MG 1700 08/21 1700 AC 08/28 PO 1609 Benztropine Mesylate 0.5 MG BID 08/21 09 AC 08/29 PO 0840 Calcium Carbonate 500 MG TID PRN 08/25 0930 AC 08/29 PO 0854 Cinacalcet 30 MG DAILY 08/21 09 AC 08/29 PO 0842 Furosemide 80 MG 0800,2200 08/21 08 AC 08/29 PO 0837 Gabapentin 300 MG AT BEDTIME 08/21 2100 AC 08/28 PO 2004 Heparin Sodium 5,000 UNIT Q8 08/21 06 AC 08/29 (Porcine) SC 1313 Hydralazine HCl 20 MG BID 08/21 09 AC 08/29 PO 0839 Labetalol HCl 100 MG BID 08/21 0900 AC 08/29 PO 0841 Lamotrigine 50 MG 1000 08/22 1000 AC 08/29 PO 08 1001 0841 Multivitamins 1 TAB 1000 08/21 1000 AC 08/29 PO 0842 Nitroglycerin 0.4 MG DAILY NEEDED PRN 08/21 0300 AC TOP Oxcarbazepine 600 MG BID 08/21 09 AC 08/29 PO 0841 Patient Medication 1 ED ONE ONE 08/29 1115 DC 08/29 Teaching ED 08/29 1116 1128 Propranolol HCl 10 MG BID 08/21 09 AC 08/29 PO 0840 Quetiapine Fumarate 400 MG QPM 08/22 2100 AC 08/28 PO 2004 Sevelamer Carbonate 2,400 MG TIDAC 08/21 0800 AC 08/29 PO 1128 Sevelamer Carbonate 1,600 MG Q4P PRN 08/21 0300 AC 08/24 PO 2030 Tiotropium [place] 1 PUF DAILY 08/21 0900 AC 08/29 INH 0836 Laboratory Tests 08/29/17 1300: Sodium Pending, Potassium Pending, Chloride Pending, Carbon Dioxide Pending, Anion Gap Pending, BUN Pending, Creatinine Pending, BUN/Creatinine Ratio Pending , Phosphorus Pending, Magnesium Pending, CBC w Diff NO MAN DIFF REQ, RBC 3.28 L , MCV 86.7, MCH 29.5, MCHC 34.1, RDW 15.9 H, MPV 7.9, Gran % 68.9, Lymphocytes % 17.3 L, Monocytes % 7.5, Eosinophils % 5.7 H, Basophils % 0.6, Absolute Granulocytes 5.2, Absolute Lymphocytes 1.3, Absolute Monocytes 0.6, Absolute Eosinophils 0.4, Absolute Basophils 0 08/28/17 0816: Anion Gap 13, Estimated GFR 10 L, BUN/Creatinine Ratio 5.5 L 08/27/17 0835: Anion Gap 16, Estimated GFR 6 L, BUN/Creatinine Ratio 6.8 L, Calcium 8.2 L, Phosphorus 3.7, Magnesium 2.3, Albumin 3.6, CBC w Diff NO MAN DIFF REQ, RBC 3.21 L, MCV 86.6, MCH 29.3, MCHC 33.8, RDW 15.6 H, MPV 7.7, Gran % 65.4, Lymphocytes % 19.8 L, Monocytes % 7.4, Eosinophils % 6.0 H, Basophils % 1.4, Absolute Granulocytes 4.9, Absolute Lymphocytes 1.5, Absolute Monocytes 0.5, Absolute Eosinophils 0.4, Absolute Basophils 0.1 08/27/17 0804: Anion Gap 17 H, Estimated GFR 6 L, BUN/Creatinine Ratio 6.6 L Vital Signs Date Time Temp Pulse Resp B/P B/P Pulse O2 O2 Flow FiO2 Mean Ox Delivery Rate 08/29 1206 Room Air Room Air 08/29 0841 36.8 93 19 17208/29 0840 36.8 93 19 17208/29 0839 36.8 93 19 172/82 05/02 0620 98.1 77 18 164/88 97 Room Air 08/28 2331 80 150/90 08/28 2237 98.3 82 20 170/100 96 08/28 2004 82 170/100 05/ 1444 98.0 70 20 140/80 98
[2017-08-29 18:17] VITALS: BP 180/100
[2017-08-29 20:19] VITALS: BP 170/100
[2017-08-30 06:00] VITALS: BP 156/90
--- NOTE | 2017-08-30 07:15 | PN- Housestaff ---
Subjective Follow-up For: End-stage renal disease, altered mental status-back to baseline Complaints: no complaints Subjective: Patient seen and examined. No overnight events. He said his blood pressure was high yesterday. He denies headache, nausea, vomiting, weakness. Review of Systems Constitutional: Reports: no symptoms, see HPI. Objective Last 24 Hrs of Vital Signs/I&O Vital Signs Date Time Temp Pulse Resp B/P B/P Pulse O2 O2 Flow FiO2 Mean Ox Delivery Rate 08/30 737 98.6 91 18 156/90 08/30 0738 98.6 91 18 156/90 08/30 0737 98.6 91 18 156/90 08/30 0600 98.6 91 18 156/90 95 Room Air 08/29 2040 86 170/100 08/29 2019 98.8 86 20 170/100 96 Room Air 08/29 1817 99.5 93 18 180/100 96 Room Air 08/29 1534 74 198/98 08/29 1206 Room Air Room Air Intake & Output 08/30 1600 08/30 0800 08/30 0000 Intake Total 240 240 Output Total Balance 240 240 Intake, Oral 240 240 Patient 225 lb Weight Weight Standing Scale Measurement Method Physical Exam General Appearance: Alert, Oriented X3, Cooperative, No Acute Distress Cardiovascular: Regular Rate, Normal S1, Normal S2, No Murmurs Lungs: Clear to Auscultation Abdomen: Soft, No Tenderness, No Hepatospenomegaly Neurological: Strength at 5/5 X4 Ext, Normal Tone, Sensation Intact, Cranial Nerves 3-12 NL Extremities: No Cyanosis, No Edema, Normal Pulses Current Medications: Current Medications Sig/Grace Start time Last Medication Dose Route Stop Time Status Admin Acetaminophen 650 MG Q6P PRN 08/21 06 AC PO Aripiprazole 400 MG Q28D 08/22 1000 AC 08/22 IM 1323 Aspirin Buffered 81 MG 08/21 08 AC 08/30 PO 0743 Atorvastatin Calcium 40 MG 1700 08/21 1700 AC 08/29 PO 1753 Benztropine Mesylate 0.5 MG BID 08/21 09 AC 08/30 PO 0738 Calcium Carbonate 500 MG TID PRN 08/25 0930 AC 08/29 PO 2038 Cinacalcet 30 MG DAILY 08/21 899 AC 08/30 PO 0739 Furosemide 80 MG 08,08/21 AC 08/30 PO 0737 Gabapentin 300 MG AT BEDTIME 08/21 2100 AC 08/29 PO 2201 Heparin Sodium 5,000 UNIT Q8 08/21 06 AC 08/30 (Porcine) SC 0548 Hydralazine HCl 25 MG ONCE ONE 08/29 1530 DC 08/29 PO 08/29 1531 1534 Hydralazine HCl 20 MG BID 08/21 09 AC 08/30 PO 0737 Labetalol HCl 100 MG ONCE PRN 08/29 1630 AC PO Labetalol HCl 100 MG BID 08/21 0900 AC 08/30 PO 0738 Lamotrigine 50 MG 1000 08/22 1000 AC 08/30 PO 09/04 1001 0738 Multivitamins 1 TAB 1000 08/21 1000 AC 08/30 PO 0738 Nitroglycerin 0.4 MG DAILY NEEDED PRN 08/21 0300 AC TOP Oxcarbazepine 600 MG BID 08/21 09 AC 08/30 PO 0738 Patient Medication 1 ED ONE ONE 08/29 1115 DC 08/29 Teaching ED 08/29 1116 1128 Propranolol HCl 10 MG BID 08/21 09 AC 08/30 PO 0738 Quetiapine Fumarate 400 MG QPM 08/22 2100 AC 08/29 PO 2040 Sevelamer Carbonate 2,400 MG TIDAC 08/21 08 AC 08/30 PO 0737 Sevelamer Carbonate 1,600 MG Q4P PRN 08/21 0300 AC 08/24 PO 2030 Tiotropium [place] 1 PUF DAILY 08/21 09 AC 08/30 INH 0738 Last 24 Hrs of Lab/Freddy Results Last 24 Hrs of Labs/Mics: Laboratory Tests 08/29/17 1300: Anion Gap 11, Estimated GFR 7 L, BUN/Creatinine Ratio 6.1 L, Phosphorus 3.4, Magnesium 2.0, CBC w Diff NO MAN DIFF REQ, RBC 3.28 L, MCV 86.7, MCH 29.5, MCHC 34.1, RDW 15.9 H, MPV 7.9, Gran % 68.9, Lymphocytes % 17.3 L, Monocytes % 7.5, Eosinophils % 5.7 H, Basophils % 0.6, Absolute Granulocytes 5.2, Absolute Lymphocytes 1.3, Absolute Monocytes 0.6, Absolute Eosinophils 0.4, Absolute Basophils 0 Assessment/Plan Assessment: 61 yo male with past medical history of ESRD on dialysis, CHF ef 45-50%, hypertension, hyperlipidemia, bipolar disorder, status post recent cardiac catheter and stents at [facility] in February 2017, cardiac arrest while in the catheter lab requiring ICU stay, hospital stay 3 months for acute blood loss anemia and CHF exacerbation and dialysis, was discharged about 1 months ago came to the ambulance with chief complaint of altered mental status. Assessment and plan: Altered mental status secondary due to uremia [end-stage renal disease missed dialysis] History of bipolar, hypertension, COPD, CHF. * Patient getting dialysis Sunday, Sunday, Sunday. Patient being followed by nephrology. * CBC and BEP daily. * Continue home medications. * 1200 fluid restriction and renal diet. * Patient was seen by psychiatry who suggested to give Abilify dose for this month and continue his psych medication including Seroquel 400. * Patient had high blood pressure is labile undergoing dialysis. He was given a one-time dose of habitus and 25. We will continue monitoring his blood pressure. * Spoke with insurance case manager Gary who is working with the conservator for discharge disposition. Plan-discharge disposition will be discussed with the case management. Problem List: 1. ESRD (end stage renal disease) on dialysis Pain Ratin Pain Location: none Pain Goal: Remain pain free Pain Plan: tylenol Tomorrow's Labs & Rationales: none
--- NOTE | 2017-08-30 11:58 | PN- Att Addend ---
Attending Addendum Attending Brief Note No new complaints patient ambulating vital signs are stable no fever. No new changes on physical exam. Patient to continue hemodialysis 3 times a week and disposition plans continue Intake & Output 08/30 0400 08/29 0400 08/28 1600 08/28 0400 Intake Total 240 240 920 470 800 600 Output Total 400 Balance 240 240 520 470 800 600 Intake, Oral 240 240 920 470 800 600 Output, Urine 400 Patient 225 lb 230 lb 230 lb Weight Weight Standing Scale Bed scale Standing Scale Measurement Method Current Medications Sig/Grace Start time Last Medication Dose Route Stop Time Status Admin Acetaminophen 650 MG Q6P PRN 08/21 06 AC PO Aripiprazole 400 MG Q28D 08/22 1000 AC 08/22 IM 1323 Aspirin Buffered 81 MG 0808/21 08 AC 08/30 PO 0743 Atorvastatin Calcium 40 MG 1700 08/21 1700 AC 08/29 PO 1753 Benztropine Mesylate 0.5 MG BID 08/21 09 AC 08/30 PO 0738 Calcium Carbonate 500 MG TID PRN 08/25 0930 AC 08/29 PO 2038 Cinacalcet 30 MG DAILY 08/21 0900 AC 08/30 PO 0739 Furosemide 80 MG 0800,2200 08/21 0800 AC 08/30 PO 0737 Gabapentin 300 MG AT BEDTIME 08/21 2100 AC 08/29 PO 2201 Heparin Sodium 5,000 UNIT Q8 08/21 06 AC 08/30 (Porcine) SC 0548 Hydralazine HCl 25 MG ONCE ONE 08/29 1530 DC 08/29 PO 08/29 1531 1534 Hydralazine HCl 20 MG BID 08/21 0900 AC 08/30 PO 0737 Labetalol HCl 100 MG ONCE PRN 08/29 1630 AC PO Labetalol HCl 100 MG BID 08/21 0900 AC 08/30 PO 0738 Lamotrigine 50 MG 1000 08/22 1000 AC 08/30 PO 08 1001 0738 Multivitamins 1 TAB 1000 08/21 1000 AC 08/30 PO 0738 Nitroglycerin 0.4 MG DAILY NEEDED PRN 08/21 0300 AC TOP Oxcarbazepine 600 MG BID 08/21 09 AC 08/30 PO 0738 Propranolol HCl 10 MG BID 08/21 09 AC 08/30 PO 0738 Quetiapine Fumarate 400 MG QPM 08/22 2100 AC 08/29 PO 2040 Sevelamer Carbonate 2,400 MG TIDAC 08/21 0800 AC 08/30 PO 0737 Sevelamer Carbonate 1,600 MG Q4P PRN 08/21 0300 AC 08/24 PO 2030 Tiotropium [place] 1 PUF DAILY 08/21 0900 AC 08/30 INH 0738 Laboratory Tests 08/29/17 1300: Anion Gap 11, Estimated GFR 7 L, BUN/Creatinine Ratio 6.1 L, Phosphorus 3.4, Magnesium 2.0, CBC w Diff NO MAN DIFF REQ, RBC 3.28 L, MCV 86.7, MCH 29.5, MCHC 34.1, RDW 15.9 H, MPV 7.9, Gran % 68.9, Lymphocytes % 17.3 L, Monocytes % 7.5, Eosinophils % 5.7 H, Basophils % 0.6, Absolute Granulocytes 5.2, Absolute Lymphocytes 1.3, Absolute Monocytes 0.6, Absolute Eosinophils 0.4, Absolute Basophils 0 08/28/17 0816: Anion Gap 13, Estimated GFR 10 L, BUN/Creatinine Ratio 5.5 L Vital Signs Date Time Temp Pulse Resp B/P B/P Pulse O2 O2 Flow FiO2 Mean Ox Delivery Rate 08/30 07 98.6 91 18 156/90 08/30 0738 98.6 91 18 156/90 08/30 0737 98.6 91 18 156/90 08/30 0600 98.6 91 18 156/90 95 Room Air 08/29 2040 86 170/100 08/29 2019 98.8 86 20 170/100 96 Room Air 08/29 1817 99.5 93 18 180/100 96 Room Air 08/29 1534 74 198/98 08/29 1206 Room Air Room Air
[2017-08-30 14:30] VITALS: BP 154/86
--- NOTE | 2017-08-30 14:30 | PN- Nephrology ---
Assessment/Plan Nephrology Assessment: ESRD. non compliant as outpt. Does great in the hospital when he gets his medications and dialysis. Dialysis again tomorrow. Steev Madrigal MD Suggestion: . Subjective Subjective: Patient comfortable NAD Objective Vital Signs and I&Os M NAD BP 156/90 P 91 T 98.6 Skin neg rash Eyes anicteric ENT moist Lungs clear Cor RRR Abd soft Ext neg edema Results Pertinent Lab Results: .
[2017-08-30 22:13] VITALS: BP 140/80
[2017-08-31 06:17] VITALS: BP 152/90
--- NOTE | 2017-08-31 07:28 | PN- Housestaff ---
Subjective Follow-up For: End-stage renal disease, altered mental status-resolved Subjective: Patient seen and examined at bedside. No overnight events. No complaints. Review of Systems Constitutional: Reports: no symptoms, see HPI. Objective Last 24 Hrs of Vital Signs/I&O Vital Signs Date Time Temp Pulse Resp B/P B/P Pulse O2 O2 Flow FiO2 Mean Ox Delivery Rate 08/31 616 98.3 83 20 152/90 98 08/30 2213 98.0 89 20 140/80 96 08/30 1430 98.1 87 18 154/86 92 Room Air Intake & Output 08/31 1600 08/31 0808/31 0000 Intake Total 120 240 Output Total Balance 120 240 Intake, Oral 120 240 Physical Exam General Appearance: Alert, Oriented X3, No Acute Distress Cardiovascular: Regular Rate, Normal S1, Normal S2, No Murmurs Lungs: Normal Air Movement Abdomen: Soft, No Tenderness, No Hepatospenomegaly Neurological: Strength at 5/5 X4 Ext, Normal Tone, Sensation Intact, Cranial Nerves 3-12 NL Extremities: No Edema, Normal Pulses Current Medications: Current Medications Sig/Grace Start time Last Medication Dose Route Stop Time Status Admin Acetaminophen 650 MG Q6P PRN 08/21 06 AC PO Aripiprazole 400 MG Q28D 08/22 1000 AC 08/22 IM 1323 Aspirin Buffered 81 MG 0808/21 08 AC 08/30 PO 0743 Atorvastatin Calcium 40 MG 1700 08/21 1700 AC 08/30 PO 1539 Benztropine Mesylate 0.5 MG BID 08/21 09 AC 08/30 PO 2051 Calcium Carbonate 500 MG TID PRN 08/25 0930 AC 08/30 PO 1216 Cinacalcet 30 MG DAILY 08/21 09 AC 08/30 PO 0739 Furosemide 80 MG 0800,2200 08/21 08 AC 08/30 PO 2052 Gabapentin 300 MG AT BEDTIME 08/21 2100 AC 08/30 PO 2051 Heparin Sodium 5,000 UNIT Q8 08/21 599 AC 08/31 (Porcine) SC 0542 Hydralazine HCl 20 MG BID 08/21 09 AC 08/30 PO 2050 Labetalol HCl 100 MG ONCE PRN 08/29 1630 AC PO Labetalol HCl 100 MG BID 08/21 09 AC 08/30 PO 2051 Lamotrigine 50 MG 1000 08/22 1000 AC 05/03 PO 05/08 1001 0738 Multivitamins 1 TAB 1000 08/21 1000 AC 08/30 PO 0738 Nitroglycerin 0.4 MG DAILY NEEDED PRN 08/21 0300 AC TOP Oxcarbazepine 600 MG BID 08/21 09 AC 05 PO 2051 Propranolol HCl 10 MG BID 08/21 09 AC 08/30 PO 2051 Quetiapine Fumarate 400 MG QPM 08/22 2100 AC 08/30 PO 2051 Sevelamer Carbonate 2,400 MG TIDAC 08/21 0800 AC 08/30 PO 1538 Sevelamer Carbonate 1,600 MG Q4P PRN 08/21 0300 AC 08/30 PO 194 Tiotropium [place] 1 PUF DAILY 08/21 09 AC 08/30 INH 0738 Assessment/Plan Assessment: 61 yo male with past medical history of ESRD on dialysis, CHF ef 45-50%, hypertension, hyperlipidemia, bipolar disorder, status post recent cardiac catheter and stents at [facility] in February 2017, cardiac arrest while in the catheter lab requiring ICU stay, hospital stay 3 months for acute blood loss anemia and CHF exacerbation and dialysis, was discharged about 1 months ago came to the ambulance with chief complaint of altered mental status. Assessment and plan: Altered mental status secondary due to uremia [end-stage renal disease missed dialysis] History of bipolar, hypertension, COPD, CHF. * Patient getting dialysis Sunday, Sunday, Sunday. Patient being followed by nephrology. * Follow CBC and BEP * Continue home medications. * 1200 fluid restriction and renal diet. * Patient was seen by psychiatry who suggested to give Abilify dose for this month and continue his psych medication including Seroquel 400. * Patient had high blood pressure while undergoing dialysis. He was given a one -time dose of hydralazine 25. His blood pressure is controlled. Today blood pressure 152/90. We will continue monitoring his blood pressure. * Spoke with pillowcase cleaner Gary who is working with the conservator for discharge disposition. Plan-discharge disposition will be discussed with the case management. Problem List: 1. ESRD (end stage renal disease) on dialysis Pain Ratin Pain Location: none Pain Goal: Remain pain free Pain Plan: tylenol Tomorrow's Labs & Rationales: none
--- NOTE | 2017-08-31 10:28 | PN- Att Addend ---
Attending Addendum Attending Brief Note Patient in bed today, seems tired. His vital signs are stable no fever and no new changes on physical. Hemodialysis 3 times a week disposition plans in progress Intake & Output 08/31 04008/30 04008/29 1600 08/29 0400 Intake Total 565 313 5100 240 920 470 Output Total 400 Balance 712 994 5173 240 520 470 Intake, Oral 487 649 1234 240 920 470 Output, Urine 400 Patient 232 lb 225 lb 230 lb Weight Weight Bed scale Standing Scale Bed scale Measurement Method Current Medications Sig/Grace Start time Last Medication Dose Route Stop Time Status Admin Acetaminophen 650 MG Q6P PRN 08/21 06 AC PO Aripiprazole 400 MG Q28D 08/22 1000 AC 08/22 IM 1323 Aspirin Buffered 81 MG 0808/21 0800 AC 08/31 PO 0959 Atorvastatin Calcium 40 MG 1700 08/21 1700 AC 08/30 PO 1539 Benztropine Mesylate 0.5 MG BID 08/21 09 AC 08/31 PO 1003 Calcium Carbonate 500 MG TID PRN 08/25 0930 AC 08/30 PO 1216 Cinacalcet 30 MG DAILY 08/21 0900 AC 08/31 PO 1003 Furosemide 80 MG 0800,2200 08/21 0800 AC 08/31 PO 0959 Gabapentin 300 MG AT BEDTIME 08/21 2100 AC 08/30 PO 205 Heparin Sodium 5,000 UNIT Q8 08/21 06 AC 08/31 (Porcine) SC 0542 Hydralazine HCl 20 MG BID 08/21 0900 AC 08/31 PO 1002 Labetalol HCl 100 MG ONCE PRN 08/29 1630 AC PO Labetalol HCl 100 MG BID 08/21 0900 AC 08/31 PO 1005 Lamotrigine 50 MG 1000 08/22 1000 AC 08/31 PO 08 1001 1007 Multivitamins 1 TAB 1000 08/21 1000 AC 08/31 PO 1008 Nitroglycerin 0.4 MG DAILY NEEDED PRN 08/21 0300 AC TOP Oxcarbazepine 600 MG BID 08/21 0900 AC 08/31 PO 1006 Propranolol HCl 10 MG BID 08/21 0900 AC 08/31 PO 1002 Quetiapine Fumarate 400 MG QPM 08/22 2100 AC 08/30 PO 2051 Sevelamer Carbonate 2,400 MG TIDAC 08/21 0800 AC 08/31 PO 1001 Sevelamer Carbonate 1,600 MG Q4P PRN 08/21 0300 AC 08/30 PO 1942 Tiotropium [place] 1 PUF DAILY 08/21 0900 AC 08/31 INH 1004 Laboratory Tests 08/29/17 1300: Anion Gap 11, Estimated GFR 7 L, BUN/Creatinine Ratio 6.1 L, Phosphorus 3.4, Magnesium 2.0, CBC w Diff NO MAN DIFF REQ, RBC 3.28 L, MCV 86.7, MCH 29.5, MCHC 34.1, RDW 15.9 H, MPV 7.9, Gran % 68.9, Lymphocytes % 17.3 L, Monocytes % 7.5, Eosinophils % 5.7 H, Basophils % 0.6, Absolute Granulocytes 5.2, Absolute Lymphocytes 1.3, Absolute Monocytes 0.6, Absolute Eosinophils 0.4, Absolute Basophils 0 Vital Signs Date Time Temp Pulse Resp B/P B/P Pulse O2 O2 Flow FiO2 Mean Ox Delivery Rate 08/31 1005 74 172/104 08/31 1002 74 172/104 08/31 1002 74 172/104 08/31 0617 98.3 83 20 152/90 98 08/30 2213 98.0 89 20 140/80 96 08/30 1430 98.1 87 18 154/86 92 Room Air
[2017-08-31 11:05] VITALS: BP 160/90
--- NOTE | 2017-08-31 11:18 | PN- Nephrology ---
Assessment/Plan Nephrology Assessment: ESRD doing well. Dialysis later today Steve Madrigal MD Suggestion: . Subjective Subjective: Pt feels good. For dialysis later today. Objective Vital Signs and I&Os M NAD Skin neg rash Eyes anicteric ENT moist Lungs clear Cor RRR Abd soft Ext neg edema Results Pertinent Lab Results: Laboratory Tests 08/29 1300 Chemistry Sodium (137 - 145 mmol/L) 131 L Potassium (3.5 - 5.1 mmol/L) 5.8 H Chloride (98 - 107 mmol/L) 94 L Carbon Dioxide (22 - 30 mmol/L) 26 Anion Gap (5 - 16) 11 BUN (9 - 20 mg/dL) 51 H Creatinine (0.7 - 1.2 mg/dL) 8.3 *H Estimated GFR (>60 ml/min) 7 L BUN/Creatinine Ratio (7 - 25 %) 6.1 L Phosphorus (2.5 - 4.5 mg/dL) 3.4 Magnesium (1.6 - 2.3 mg/dL) 2.0 Hematology CBC w Diff NO MAN DIFF REQ WBC (4.8 - 10.8 /CUMM) 7.6 RBC (4.70 - 6.10 /CUMM) 3.28 L Hgb (14.0 - 18.0 G/DL) 9.7 L Hct (42 - 52 %) 28.4 L MCV (80.0 - 94.0 FL) 86.7 MCH (27.0 - 31.0 PG) 29.5 MCHC (33.0 - 37.0 G/DL) 34.1 RDW (11.5 - 14.5 %) 15.9 H Plt Count (130 - 400 /CUMM) 307 MPV (7.4 - 10.4 FL) 7.9 Gran % (42.2 - 75.2 %) 68.9 Lymphocytes % (20.5 - 51.1 %) 17.3 L Monocytes % (1.7 - 9.3 %) 7.5 Eosinophils % (0 - 5 %) 5.7 H Basophils % (0.0 - 2.0 %) 0.6 Absolute Granulocytes (1.4 - 6.5 /CUMM) 5.2 Absolute Lymphocytes (1.2 - 3.4 /CUMM) 1.3 Absolute Monocytes (0.10 - 0.60 /CUMM) 0.6 Absolute Eosinophils (0.0 - 0.7 /CUMM) 0.4 Absolute Basophils (0.0 - 0.2 /CUMM) 0
[2017-08-31 15:05] LABS: ABSOLUTE BASOPHIL COUNT 0.1 /CUMM (0.0-0.2); ABSOLUTE EOSINOPHIL COUNT 0.4 /CUMM (0.0-0.7); ABSOLUTE GRANULOCYTE CT 5.4 /CUMM (1.4-6.5); ABSOLUTE LYMPH COUNT 1.2 /CUMM (1.2-3.4); ABSOLUTE MONOCYTE COUNT 0.4 /CUMM (0.10-0.60); BASOPHIL % 0.8 % (0.0-2.0); EOSINOPHIL % 5.8 % (0-5); GRANULOCYTE % 72.4 % (42.2-75.2); HEMATOCRIT 30.9 % (42-52); MEAN CORPUSCULAR HGB 28.7 PG (27.0-31.0); MEAN CORPUSCULAR HGB CONC 32.7 G/DL (33.0-37.0); MEAN CORPUSCULAR VOLUME 87.8 FL (80.0-94.0); MEAN PLATELET VOLUME 7.8 FL (7.4-10.4); PLATELET COUNT 321 /CUMM (130-400); RBC DISTRIBUTION WIDTH 16.6 % (11.5-14.5); RED BLOOD CELL CT 3.52 /CUMM (4.70-6.10); WHITE BLOOD CELL COUNT 7.4 /CUMM (4.8-10.8)
[2017-08-31 18:10] VITALS: BP 180/100
[2017-08-31 22:00] VITALS: BP 160/92
[2017-09-01 06:00] VITALS: BP 164/90
--- NOTE | 2017-09-01 10:26 | PN- Att Addend ---
Attending Addendum Attending Brief Note Patient in bed today, seems tired. His vital signs are stable no fever and no new changes on physical. Hemodialysis 3 times a week disposition plans in progress Intake & Output 09/01 1600 09/01 0809/01 0000 Intake Total 100 0 Output Total Balance 100 0 Intake, Oral 100 0 Patient 230 lb 226 lb Weight Weight Bed scale Bed scale Measurement Method Current Medications Sig/Grace Start time Last Medication Dose Route Stop Time Status Admin Acetaminophen 650 MG Q6P PRN 08/21 06 AC PO Aripiprazole 400 MG Q28D 08/22 1000 AC 08/22 IM 1323 Aspirin Buffered 81 MG 0808/21 0800 AC 09/01 PO 0750 Atorvastatin Calcium 40 MG 1700 08/21 1700 AC 08/31 PO 1820 Benztropine Mesylate 0.5 MG BID 08/21 09 AC 09/01 PO 0828 Calcium Carbonate 500 MG TID PRN 08/25 0930 AC 08/30 PO 1216 Cinacalcet 30 MG DAILY 08/21 09 AC 09/01 PO 0825 Furosemide 80 MG 0800,0 08/21 08 AC 09/01 PO 0750 Gabapentin 300 MG AT BEDTIME 08/21 2100 AC 08/31 PO 2042 Heparin Sodium 5,000 UNIT Q8 08/21 06 AC 09/01 (Porcine) SC 0545 Hydralazine HCl 20 MG BID 08/21 0900 AC 09/01 PO 0828 Labetalol HCl 100 MG ONCE PRN 08/29 1630 AC 08/31 PO 1642 Labetalol HCl 100 MG BID 08/21 0900 AC 09/01 PO 0828 Lamotrigine 50 MG 1000 08/22 1000 AC 09/01 PO 08 1001 0827 Multivitamins 1 TAB 1000 08/21 1000 AC 09/01 PO 0827 Nitroglycerin 0.4 MG DAILY NEEDED PRN 08/21 0300 AC TOP Oxcarbazepine 600 MG BID 08/21 09 AC 09/01 PO 0827 Propranolol HCl 10 MG BID 08/21 0900 AC 09/01 PO 0828 Quetiapine Fumarate 400 MG QPM 08/22 2100 AC 08/31 PO 2041 Sevelamer Carbonate 2,400 MG TIDAC 08/21 0800 AC 09/01 PO 0750 Sevelamer Carbonate 1,600 MG Q4P PRN 08/21 0300 AC 08/30 PO 1942 Tiotropium [place] 1 PUF DAILY 08/21 0900 AC 09/01 INH 0824 Laboratory Tests 08/31 1330 Chemistry Sodium (137 - 145 mmol/L) 136 L Potassium (3.5 - 5.1 mmol/L) 5.3 H Chloride (98 - 107 mmol/L) 94 L Carbon Dioxide (22 - 30 mmol/L) 28 Anion Gap (5 - 16) 14 BUN (9 - 20 mg/dL) 46 H Creatinine (0.7 - 1.2 mg/dL) 8.1 *H Estimated GFR (>60 ml/min) 7 L BUN/Creatinine Ratio (7 - 25 %) 5.7 L Glucose (65 - 99 mg/dL) 148 H Calcium (8.4 - 10.2 mg/dL) 8.2 L Hematology CBC w Diff NO MAN DIFF REQ WBC (4.8 - 10.8 /CUMM) 7.4 RBC (4.70 - 6.10 /CUMM) 3.52 L Hgb (14.0 - 18.0 G/DL) 10.1 L Hct (42 - 52 %) 30.9 L MCV (80.0 - 94.0 FL) 87.8 MCH (27.0 - 31.0 PG) 28.7 MCHC (33.0 - 37.0 G/DL) 32.7 L RDW (11.5 - 14.5 %) 16.6 H Plt Count (130 - 400 /CUMM) 321 MPV (7.4 - 10.4 FL) 7.8 Gran % (42.2 - 75.2 %) 72.4 Lymphocytes % (20.5 - 51.1 %) 15.7 L Monocytes % (1.7 - 9.3 %) 5.3 Eosinophils % (0 - 5 %) 5.8 H Basophils % (0.0 - 2.0 %) 0.8 Absolute Granulocytes (1.4 - 6.5 /CUMM) 5.4 Absolute Lymphocytes (1.2 - 3.4 /CUMM) 1.2 Absolute Monocytes (0.10 - 0.60 /CUMM) 0.4 Absolute Eosinophils (0.0 - 0.7 /CUMM) 0.4 Absolute Basophils (0.0 - 0.2 /CUMM) 0.1 Vital Signs Date Time Temp Pulse Resp B/P B/P Pulse O2 O2 Flow FiO2 Mean Ox Delivery Rate 09/02 827 90 168/88 09/01 0828 90 168/88 09/01 0828 90 168/88 09/01 0600 98.1 87 18 164/90 96 Room Air 05/ 2200 98.5 89 18 160/92 95 Room Air 08/31 2042 180/100 05/ 2042 180/100 05/ 2041 180/100 / 1810 97.8 6 16 180/100 98 Room Air 08/31 1642 194/102 05/04 1105 160/90 General Appearance: Alert, Oriented X3, No Acute Distress Cardiovascular: Regular Rate, Normal S1, Normal S2, No Murmurs Lungs: Normal Air Movement Abdomen: Soft, No Tenderness, No Hepatospenomegaly Neurological: Strength at 5/5 X4 Ext, Normal Tone, Sensation Intact, Cranial Nerves 3-12 NL Extremities: No Edema, Normal Pulses 61 yo male with past medical history of ESRD on dialysis, CHF ef 45-50%, hypertension, hyperlipidemia, bipolar disorder, status post recent cardiac catheter and stents at [facility] in February 2017, cardiac arrest while in the catheter lab requiring ICU stay, hospital stay 3 months for acute blood loss anemia and CHF exacerbation and dialysis, was discharged about 1 months ago came to the ambulance with chief complaint of altered mental status. Assessment and plan: Altered mental status secondary due to uremia [end-stage renal disease missed dialysis] History of bipolar, hypertension, COPD, CHF. now resolved * Patient getting dialysis Sunday, Sunday, Sunday. Patient being followed by nephrology. * Continue home medications. * 1200 fluid restriction and renal diet. * Patient was seen by psychiatry and continue his psych medication * HTN stable. Plan-discharge disposition will be discussed with the case management.
[2017-09-01 14:35] VITALS: BP 150/80
[2017-09-01 22:27] VITALS: BP 150/90
[2017-09-02 06:20] VITALS: BP 170/78
--- NOTE | 2017-09-02 09:35 | PN- Att Addend ---
Attending Addendum Attending Brief Note His vital signs are stable no fever and no new changes on physical. Hemodialysis 3 times a week disposition plans in progress. Walking around the unit Intake & Output 09/02 1600 09/02 0800 09/02 0000 Intake Total 120 400 Output Total Balance 120 400 Intake, Oral 120 400 Patient 230 lb Weight Weight Bed scale Measurement Method Current Medications Sig/Grace Start time Last Medication Dose Route Stop Time Status Admin Acetaminophen 650 MG Q6P PRN 08/21 06 AC PO Aripiprazole 400 MG Q28D 08/22 1000 AC 08/22 IM 1323 Aspirin Buffered 81 MG 0808/21 08 AC 09/02 PO 0912 Atorvastatin Calcium 40 MG 1700 08/21 1700 AC 09/01 PO 1719 Benztropine Mesylate 0.5 MG BID 08/21 09 AC 09/02 PO 0912 Calcium Carbonate 500 MG TID PRN 08/25 0930 AC 08/30 PO 1216 Cinacalcet 30 MG DAILY 08/21 09 AC 09/02 PO 0914 Furosemide 80 MG 0800,0 08/21 08 AC 09/02 PO 0913 Gabapentin 300 MG AT BEDTIME 08/21 2100 AC 09/01 PO 2017 Heparin Sodium 5,000 UNIT Q8 08/21 06 AC 09/02 (Porcine) SC 0558 Hydralazine HCl 20 MG BID 08/21 0900 AC 09/02 PO 0912 Labetalol HCl 100 MG ONCE PRN 08/29 1630 AC 08/31 PO 1642 Labetalol HCl 100 MG BID 08/21 0900 AC 09/02 PO 0915 Lamotrigine 50 MG 1000 08/22 1000 AC 09/02 PO 08 1001 0912 Multivitamins 1 TAB 1000 08/21 1000 AC 09/02 PO 0912 Nitroglycerin 0.4 MG DAILY NEEDED PRN 08/21 0300 AC TOP Oxcarbazepine 600 MG BID 08/21 0900 AC 09/02 PO 0915 Propranolol HCl 10 MG BID 08/21 09 AC 09/02 PO 0913 Quetiapine Fumarate 400 MG QPM 08/22 2100 AC 09/01 PO 2017 Sevelamer Carbonate 2,400 MG TIDAC 08/21 0800 AC 09/02 PO 0911 Sevelamer Carbonate 1,600 MG Q4P PRN 08/21 0300 AC 08/30 PO 1942 Tiotropium [place] 1 PUF DAILY 08/21 0900 AC 09/02 INH 0913 Laboratory Tests 08/31 1330 Chemistry Sodium (137 - 145 mmol/L) 136 L Potassium (3.5 - 5.1 mmol/L) 5.3 H Chloride (98 - 107 mmol/L) 94 L Carbon Dioxide (22 - 30 mmol/L) 28 Anion Gap (5 - 16) 14 BUN (9 - 20 mg/dL) 46 H Creatinine (0.7 - 1.2 mg/dL) 8.1 *H Estimated GFR (>60 ml/min) 7 L BUN/Creatinine Ratio (7 - 25 %) 5.7 L Glucose (65 - 99 mg/dL) 148 H Calcium (8.4 - 10.2 mg/dL) 8.2 L Hematology CBC w Diff NO MAN DIFF REQ WBC (4.8 - 10.8 /CUMM) 7.4 RBC (4.70 - 6.10 /CUMM) 3.52 L Hgb (14.0 - 18.0 G/DL) 10.1 L Hct (42 - 52 %) 30.9 L MCV (80.0 - 94.0 FL) 87.8 MCH (27.0 - 31.0 PG) 28.7 MCHC (33.0 - 37.0 G/DL) 32.7 L RDW (11.5 - 14.5 %) 16.6 H Plt Count (130 - 400 /CUMM) 321 MPV (7.4 - 10.4 FL) 7.8 Gran % (42.2 - 75.2 %) 72.4 Lymphocytes % (20.5 - 51.1 %) 15.7 L Monocytes % (1.7 - 9.3 %) 5.3 Eosinophils % (0 - 5 %) 5.8 H Basophils % (0.0 - 2.0 %) 0.8 Absolute Granulocytes (1.4 - 6.5 /CUMM) 5.4 Absolute Lymphocytes (1.2 - 3.4 /CUMM) 1.2 Absolute Monocytes (0.10 - 0.60 /CUMM) 0.4 Absolute Eosinophils (0.0 - 0.7 /CUMM) 0.4 Absolute Basophils (0.0 - 0.2 /CUMM) 0.1 Vital Signs Date Time Temp Pulse Resp B/P B/P Pulse O2 O2 Flow FiO2 Mean Ox Delivery Rate 05/06 0915 80 170/78 / 0913 80 170/78 09/02 0912 80 170/78 / 0620 98.5 83 20 170/78 97 Room Air 09/01 2227 98.3 78 20 150/90 98 Room Air 09/01 2016 88 160/88 09/02 2015 88 160/88 09/01 2014 88 160/82 09/01 1435 98.5 83 20 150/80 96 General Appearance: Alert, Oriented X3, No Acute Distress Cardiovascular: Regular Rate, Normal S1, Normal S2, No Murmurs Lungs: Normal Air Movement Abdomen: Soft, No Tenderness, No Hepatospenomegaly Neurological: Strength at 5/5 X4 Ext, Normal Tone, Sensation Intact, Cranial Nerves 3-12 NL Extremities: No Edema, Normal Pulses 61 yo male with past medical history of ESRD on dialysis, CHF ef 45-50%, hypertension, hyperlipidemia, bipolar disorder, status post recent cardiac catheter and stents at [facility] in February 2017, cardiac arrest while in the catheter lab requiring ICU stay, hospital stay 3 months for acute blood loss anemia and CHF exacerbation and dialysis, was discharged about 1 months ago came to the ambulance with chief complaint of altered mental status. Assessment and plan: Altered mental status secondary due to uremia [end-stage renal disease missed dialysis] History of bipolar, hypertension, COPD, CHF. now resolved * Patient getting dialysis Sunday, Sunday, Sunday. Patient being followed by nephrology. * Continue home medications. * 1200 fluid restriction and renal diet. * Patient was seen by psychiatry and continue his psych medication * HTN stable. Plan-discharge disposition will be discussed with the case management.
--- NOTE | 2017-09-02 10:12 | PN- Housestaff ---
Subjective Follow-up For: End-stage renal disease Subjective: No complaints. Review of Systems Constitutional: Reports: see HPI. Objective Last 24 Hrs of Vital Signs/I&O Vital Signs Date Time Temp Pulse Resp B/P B/P Pulse O2 O2 Flow FiO2 Mean Ox Delivery Rate 09/02 0815 80 170/78 / 0913 80 170/78 / 0912 80 170/78 / 0620 98.5 83 20 170/78 97 Room Air 09/01 2227 98.3 78 20 150/90 98 Room Air 09/01 2016 88 160/88 09/02 2015 88 160/88 09/01 2014 88 160/82 09/01 1435 98.5 83 20 150/80 96 Intake & Output 09/02 1600 09/02 0800 09/02 0000 Intake Total 120 400 Output Total Balance 120 400 Intake, Oral 120 400 Patient 230 lb Weight Weight Bed scale Measurement Method Physical Exam General Appearance: Alert, Oriented X3, Cooperative Cardiovascular: Regular Rate, Normal S1, Normal S2 Lungs: Clear to Auscultation, Normal Air Movement Abdomen: Normal Bowel Sounds, Soft, No Tenderness Extremities: No Clubbing, No Cyanosis, No Edema Current Medications: Current Medications Sig/Grace Start time Last Medication Dose Route Stop Time Status Admin Acetaminophen 650 MG Q6P PRN 08/21 599 AC PO Aripiprazole 400 MG Q28D 08/22 1000 AC 08/22 IM 1323 Aspirin Buffered 81 MG 0808/21 08 AC 09/02 PO 0912 Atorvastatin Calcium 40 MG 1700 08/21 1700 AC 09/01 PO 1719 Benztropine Mesylate 0.5 MG BID 08/21 09 AC 09/02 PO 0912 Calcium Carbonate 500 MG TID PRN 08/25 0930 AC 09/02 PO 1148 Cinacalcet 30 MG DAILY 08/21 09 AC 09/02 PO 0914 Furosemide 80 MG 0800,2200 08/21 08 AC 09/02 PO 0913 Gabapentin 300 MG AT BEDTIME 08/21 2100 AC 09/01 PO 2017 Heparin Sodium 5,000 UNIT Q8 08/21 599 AC 09/02 (Porcine) SC 0558 Hydralazine HCl 20 MG BID 08/21 0900 AC 09/02 PO 0912 Labetalol HCl 100 MG ONCE PRN 08/29 1630 AC 08/31 PO 1642 Labetalol HCl 100 MG BID 08/21 0900 AC 09/02 PO 0915 Lamotrigine 50 MG 1000 08/22 1000 AC 05/ PO 09/04 1001 0912 Multivitamins 1 TAB 1000 08/21 1000 AC 09/02 PO 0912 Nitroglycerin 0.4 MG DAILY NEEDED PRN 08/21 0300 AC TOP Oxcarbazepine 600 MG BID 08/21 0900 AC 09/02 PO 0915 Propranolol HCl 10 MG BID 08/21 09 AC 09/02 PO 0913 Quetiapine Fumarate 400 MG QPM 08/22 2100 AC 09/01 PO 2017 Sevelamer Carbonate 2,400 MG TIDAC 08/21 0800 AC 09/02 PO 1148 Sevelamer Carbonate 1,600 MG Q4P PRN 08/21 0300 AC 08/30 PO 194 Tiotropium [place] 1 PUF DAILY 08/21 899 AC 09/02 INH 0913 Assessment/Plan Assessment: 62-year-old gentleman history of end-stage renal disease on hemodialysis, was admitted for altered mental status, currently awaiting placement to short-term rehabilitation. 1. End-stage renal disease on hematemesis. Hemodialysis Sunday. Continue fluid restriction and renal diet. 2. Hypertension. Continue current blood pressure medications. 3. Disposition. Await recommendations. Full code. Heparin for DVT prophylaxis. Renal dialysis diet. Problem List: 1. ESRD (end stage renal disease) Pain Ratin Pain Location: NA Pain Goal: Remain pain free Pain Plan: When necessary. Tomorrow's Labs & Rationales: Not needed.
[2017-09-02 15:06] VITALS: BP 160/90
[2017-09-02 22:40] VITALS: BP 170/94
[2017-09-03 06:31] VITALS: BP 168/96
--- NOTE | 2017-09-03 10:57 | PN- Att Addend ---
Attending Addendum Attending Brief Note Intake & Output 09/03 0400 09/02 1600 09/02 0400 09/01 1600 09/01 0400 Intake Total 200 500 480 400 750 0 Output Total 150 0 Balance 200 350 480 400 750 0 Intake, Oral 200 500 480 400 750 0 Number 0 Bowel Movements Output, Urine 150 0 Patient 230 lb 230 lb 226 lb Weight Weight Bed scale Bed scale Bed scale Measurement Method Current Medications Sig/Grace Start time Last Medication Dose Route Stop Time Status Admin Acetaminophen 650 MG Q6P PRN 08/21 06 AC PO Aripiprazole 400 MG Q28D 08/22 1000 AC 08/22 IM 1323 Aspirin Buffered 81 MG 0808/21 0800 AC 09/03 PO 0900 Atorvastatin Calcium 40 MG 1700 08/21 1700 AC 09/02 PO 1607 Benztropine Mesylate 0.5 MG BID 08/21 09 AC 09/03 PO 0859 Calcium Carbonate 500 MG TID PRN 08/25 0930 AC 09/02 PO 2115 Cinacalcet 30 MG DAILY 08/21 09 AC 09/03 PO 0901 Furosemide 80 MG 0800,08/21 08 AC 09/03 PO 0901 Gabapentin 300 MG AT BEDTIME 08/21 2100 AC 09/02 PO 2112 Heparin Sodium 5,000 UNIT Q8 08/21 06 AC 09/02 (Porcine) SC 0558 Hydralazine HCl 20 MG BID 08/21 0900 AC 09/03 PO 0900 Labetalol HCl 100 MG ONCE PRN 08/29 1630 AC 08/31 PO 1642 Labetalol HCl 100 MG BID 08/21 0900 AC 09/03 PO 0859 Lamotrigine 50 MG 1000 08/22 1000 AC 09/03 PO 08 1001 0859 Multivitamins 1 TAB 1000 08/21 1000 AC 09/03 PO 0859 Nitroglycerin 0.4 MG DAILY NEEDED PRN 08/21 0300 AC TOP Ondansetron HCl 4 MG ONCE ONE 09/02 2199 DC PO 09/02 2200 Oxcarbazepine 600 MG BID 08/21 0900 AC 09/03 PO 0858 Propranolol HCl 10 MG BID 08/21 0900 AC 09/03 PO 0859 Quetiapine Fumarate 400 MG QPM 08/22 2100 AC 09/02 PO 211 Sevelamer Carbonate 2,400 MG TIDAC 08/21 0800 AC 09/03 PO 0900 Sevelamer Carbonate 1,600 MG Q4P PRN 08/21 0300 AC 08/30 PO 194 Tiotropium [place] 1 PUF DAILY 08/21 0900 AC 09/03 INH 0900 Laboratory Tests 08/31/17 1330: Anion Gap 14, Estimated GFR 7 L, BUN/Creatinine Ratio 5.7 L, Glucose 148 H, Calcium 8.2 L, CBC w Diff NO MAN DIFF REQ, RBC 3.52 L, MCV 87.8, MCH 28.7, MCHC 32.7 L, RDW 16.6 H, MPV 7.8, Gran % 72.4, Lymphocytes % 15.7 L, Monocytes % 5.3, Eosinophils % 5.8 H, Basophils % 0.8, Absolute Granulocytes 5.4, Absolute Lymphocytes 1.2, Absolute Monocytes 0.4, Absolute Eosinophils 0.4, Absolute Basophils 0.1 Patient feeling better ambulating happy that they found a place for him to go. Vital signs are stable, no new changes on physical. To continue his hemodialysis treatment times a week and [place] will go to a [place] [facility] facility today
--- NOTE | 2017-09-03 11:10 | Discharge Summary ---
See Addendum Visit Information Visit Dates Admission Date: 08/21/17 Discharge Date: 09/03/17 Hospital Course Course Attending Physician: Ashok Durand MD Primary Care Physician: Ashok Durand MD Consulting Request: Consulting Specialty: Nephrology Consulting Physician: Reason for Consult: for hemodialysis Hospital Course: 62-year-old white male returns to the hospital confused and some change in mental status but apparently he wasn't compliant with his appointments for hemodialysis once in the hospital after restarting his hemodialysis patient is back to his normal mental status at first she had a sitter and he was ambulating independently in the hospital reteplase was found for him to go to be safe and to follow with unit receptionist for hemodialysis Complications: None Allergies: Coded Allergies: chlorpromazine (From THORAZINE) (Severe, ANAPHYLAXIS 08/20/17) trifluoperazine (From STELAZINE) (Severe, ANAPHYLAXIS 08/20/17) lithium (PER PT "KILLED MY KIDNEYS" 08/20/17) venom-honey bee (BEE VENOM (HONEY BEE)) (UNKNOWN 08/20/17) Significant Procedures: Hemodialysis treatment times a week Pertinent Lab Results: 08/20/17 2300: Anion Gap 24 H, Estimated GFR 4 L, BUN/Creatinine Ratio 4.9 L, Glucose 104 H , Calcium 9.1, Total Bilirubin 1.1, Direct Bilirubin 1.1 H, AST 27, ALT 23, Alkaline Phosphatase 594 H, Troponin I 0.04, Total Protein 8.3 H, Albumin 5.2 H, Amylase 121 H, Lipase 353 H, Prolactin 8.3, CBC w Diff NO MAN DIFF REQ, RBC 4.30 L, MCV 87.5, MCH 28.6, MCHC 32.6 L, RDW 16.0 H, MPV 7.9, Gran % 61.3, Lymphocytes % 26.3, Monocytes % 9.0, Eosinophils % 3.0, Basophils % 0.4, Absolute Granulocytes 6.2, Absolute Lymphocytes 2.7, Absolute Monocytes 0.9 H, Absolute Eosinophils 0.3, Absolute Basophils 0, Serum Alcohol < 10.0 08/21/17 0830: Anion Gap 22 H, Estimated GFR 4 L, BUN/Creatinine Ratio 5.3 L, Ammonia 11, Vitamin B12 Pending, 25-OH Vitamin D Total Pending, Folate Pending, TSH 0.774, Free T4 0.58 L, Total T3 1.02, PTH Intact Pending, PT 13.0 H, INR 1.19 H, APTT 38 H, CBC w Diff NO MAN DIFF REQ, RBC 4.13 L, MCV 87.2, MCH 29.0, MCHC 33.3, RDW 15.9 H, MPV 7.9, Gran % 68.1, Lymphocytes % 19.5 L, Monocytes % 8.6, Eosinophils % 3.1, Basophils % 0.7, Absolute Granulocytes 5.1, Absolute Lymphocytes 1.5, Absolute Monocytes 0.6, Absolute Eosinophils 0.2, Absolute Basophils 0.1 08/21/17 0430: pH 7.42, pCO2 36, pO2 90, HCO3 23, ABG O2 Sat (Measured) 96.0, P-50 (Temp Corrected) N, Carboxyhemoglobin 0.4 L, O2 Concentration % RA, Phlebotomy Draw Site RIGHT RADIAL 08/22/17 0730: Anion Gap 26 H, Estimated GFR 6 L, BUN/Creatinine Ratio 4.3 L, Calcium 8.9, Phosphorus 5.5 H, Magnesium 2.0, Albumin 5.1 H, CBC w Diff NO MAN DIFF REQ, RBC 4.61 L, MCV 85.5, MCH 29.0, MCHC 33.9, RDW 15.9 H, MPV 7.8, Gran % 64.2, Lymphocytes % 24.3, Monocytes % 9.6 H, Eosinophils % 1.5, Basophils % 0.4, Absolute Granulocytes 5.1, Absolute Lymphocytes 1.9, Absolute Monocytes 0.8 H, Absolute Eosinophils 0.1, Absolute Basophils 0 08/23/17 0735: Anion Gap 18 H, Estimated GFR 9 L, BUN/Creatinine Ratio 5.2 L, CBC w Diff NO MAN DIFF REQ, RBC 4.24 L, MCV 88.2, MCH 28.6, MCHC 32.4 L, RDW 15.9 H, MPV 8.2, Gran % 58.4, Lymphocytes % 23.9, Monocytes % 13.1 H, Eosinophils % 3.8, Basophils % 0.8, Absolute Granulocytes 4.2, Absolute Lymphocytes 1.7, Absolute Monocytes 0.9 H, Absolute Eosinophils 0.3, Absolute Basophils 0.1 08/24/17 0745: Anion Gap 21 H, Estimated GFR 6 L, BUN/Creatinine Ratio 6.4 L, Calcium 8.8, CBC w Diff NO MAN DIFF REQ, RBC 3.74 L, MCV 86.7, MCH 29.3, MCHC 33.8, RDW 15.8 H, MPV 8.2, Gran % 65.8, Lymphocytes % 20.8, Monocytes % 9.3, Eosinophils % 3.5 , Basophils % 0.6, Absolute Granulocytes 5.8, Absolute Lymphocytes 1.8, Absolute Monocytes 0.8 H, Absolute Eosinophils 0.3, Absolute Basophils 0.1 08/27/17 0835: Anion Gap 16, Estimated GFR 6 L, BUN/Creatinine Ratio 6.8 L, Calcium 8.2 L, Phosphorus 3.7, Magnesium 2.3, Albumin 3.6, CBC w Diff NO MAN DIFF REQ, RBC 3.21 L, MCV 86.6, MCH 29.3, MCHC 33.8, RDW 15.6 H, MPV 7.7, Gran % 65.4, Lymphocytes % 19.8 L, Monocytes % 7.4, Eosinophils % 6.0 H, Basophils % 1.4, Absolute Granulocytes 4.9, Absolute Lymphocytes 1.5, Absolute Monocytes 0.5, Absolute Eosinophils 0.4, Absolute Basophils 0.1 08/27/17 0804: Anion Gap 17 H, Estimated GFR 6 L, BUN/Creatinine Ratio 6.6 L 08/29/17 1300: Sodium Pending, Potassium Pending, Chloride Pending, Carbon Dioxide Pending, Anion Gap Pending, BUN Pending, Creatinine Pending, BUN/Creatinine Ratio Pending , Phosphorus Pending, Magnesium Pending, CBC w Diff NO MAN DIFF REQ, RBC 3.28 L , MCV 86.7, MCH 29.5, MCHC 34.1, RDW 15.9 H, MPV 7.9, Gran % 68.9, Lymphocytes % 17.3 L, Monocytes % 7.5, Eosinophils % 5.7 H, Basophils % 0.6, Absolute Granulocytes 5.2, Absolute Lymphocytes 1.3, Absolute Monocytes 0.6, Absolute Eosinophils 0.4, Absolute Basophils 0 08/28/17 0816: Anion Gap 13, Estimated GFR 10 L, BUN/Creatinine Ratio 5.5 L 08/29/17 1300: Anion Gap 11, Estimated GFR 7 L, BUN/Creatinine Ratio 6.1 L, Phosphorus 3.4, Magnesium 2.0, CBC w Diff NO MAN DIFF REQ, RBC 3.28 L, MCV 86.7, MCH 29.5, MCHC 34.1, RDW 15.9 H, MPV 7.9, Gran % 68.9, Lymphocytes % 17.3 L, Monocytes % 7.5, Eosinophils % 5.7 H, Basophils % 0.6, Absolute Granulocytes 5.2, Absolute Lymphocytes 1.3, Absolute Monocytes 0.6, Absolute Eosinophils 0.4, Absolute Basophils 0 08/31/17 1330: Anion Gap 14, Estimated GFR 7 L, BUN/Creatinine Ratio 5.7 L, Glucose 148 H, Calcium 8.2 L, CBC w Diff NO MAN DIFF REQ, RBC 3.52 L, MCV 87.8, MCH 28.7, MCHC 32.7 L, RDW 16.6 H, MPV 7.8, Gran % 72.4, Lymphocytes % 15.7 L, Monocytes % 5.3, Eosinophils % 5.8 H, Basophils % 0.8, Absolute Granulocytes 5.4, Absolute Lymphocytes 1.2, Absolute Monocytes 0.4, Absolute Eosinophils 0.4, Absolute Basophils 0.1 Disposition Summary Disposition Principal Diagnosis: ESRD on hemodialysis Change in mental status Additional Diagnosis: History of congestive heart failure Lipidemia Bipolar disorder Coronary artery disease Discharge Disposition: SNF Discharge Instructions General Discharge Information Code Status: Full Code Patient's Diet: Renal diet, healthy heart Patient's Activity: As tolerated Follow-Up Instructions/Appts: Continue his hemodialysis 3 times a week Medications at Discharge Discharge Medications: Continue taking these medications: Aripiprazole (Abilify Maintena) 400 MG SUSER.VIAL 400 Milligram INTRAMUSC ONCE A MONTH Qty = 429 Comments: Last Taken:07/23/17 TIME: 1:23 PM Furosemide (Lasix) 40 MG TABLET 2 Tablet ORAL 0800,2200 Qty = 1 Comments: Last Taken:07/23/17 Time:7:00 AM Lamotrigine (Lamictal) 150 MG TABLET 1 Tablet ORAL DAILY Qty = 1 Comments: Last Taken:07/23/17 Time:1:23 PM Atorvastatin Calcium (Atorvastatin Calcium) 40 MG TABLET 1 Capsule ORAL 5 PM Qty = 60 Comments: Last Taken:07/23/17 Time:16:12 PM Benztropine Mesylate (Benztropine Mesylate) 0.5 MG TABLET 1 Tablet ORAL TWICE DAILY Comments: Last Taken:07/23/17 Time:1.09 PM Sevelamer Carbonate (Renvela) 800 MG TABLET 3 Tablet ORAL 3 TIMES DAILY BEFORE MEALS Qty = 135 Comments: Last Taken:07/23/17 Time:5:00 PM Sevelamer Carbonate (Renvela) 800 MG TABLET 2 Tablet ORAL EVERY 4 HOURS NEEDED as needed for dialysis Qty = 60 Comments: Last Taken:03/08/17 Time:2200 Tiotropium [place] (Spiriva) 18 MCG CAP.W.DEV 1 Inhaler Inhale through mouth DAILY Qty = 1 Comments: Last Taken:03/14/17 Time:0900 Albuterol Sulfate (Ventolin Hfa) 90 MCG HFA.AER.AD 1 Inhaler Inhale through mouth EVERY 4 HOURS NEEDED as needed for asthma Qty = 1 Comments: Last Taken:03/09/17 Time:0330 Epoetin [place] (Procrit) 3,000 UNIT/ML VIAL 3,000 Unit INTRAVEN TuThSa Days = 14 Comments: Last Taken:GIVEN 3XS WEEKLY WITH DIALYSIS Time: Hydralazine HCl (Hydralazine HCl) 10 MG TABLET 2 Tablet ORAL TWICE DAILY Days = 14 Comments: Last Taken:07/23/17 Time:5:00 PM Nitroglycerin (Nitroglycerin Patch) 0.4 MG/HOUR PATCH.TD24 1 Patch On the skin DAILY NEEDED as needed for CHEST PAIN Days = 14 Comments: Last Taken:NOT USED IN THE HOSPITAL Time: Propranolol HCl (Propranolol HCl) 10 MG TABLET 1 Tablet ORAL TWICE DAILY Days = 14 Comments: Last Taken:07/23/17 Time:1:22PM Labetalol HCl (Labetalol HCl) 100 MG TABLET 1 Tablet ORAL TWICE DAILY Days = 14 Comments: Last Taken:07/23/17 Time:1:22 PM Aspirin (Ecotrin*) 81 MG TABLET.DR 1 Tablet ORAL DAILY @8 AM Days = 14 Comments: Last Taken:07/23/17 Time:7:30 Oxcarbazepine (Trileptal) 150 MG TABLET 4 Tablet ORAL TWICE DAILY Days = 14 Comments: Last Taken:07/23/17 Time:1:06 PM Gabapentin (Gabapentin) 300 MG CAPSULE 1 Tablet ORAL AT BEDTIME Days = 14 Comments: Last Taken:07/22/17 Time:9:14 PM Quetiapine Fumarate (Quetiapine Fumarate) 100 MG TABLET 4 Tablet ORAL AT BEDTIME Days = 14 Comments: Last Taken:03/13/17 Time:2350 Cinacalcet HCl (Sensipar) 30 MG TABLET 1 Tablet ORAL DAILY Days = 14 Comments: Last Taken:07/23/17 Time:1:10 PM Nephro-Vitamins (Nephro-Tara Tablet) 0.8 MG TABLET 1 Tablet ORAL 1000 Days = 14 Comments: Last Taken:07/23/17 Time:1:09 PM Copies To: Greg Baron APRN; Cameron FLEMING,Chan Knox; Kizzy FLEMING,Ashok Attending Review Statement Documenting Attending: Ashok Durand MD
--- NOTE | 2017-09-03 12:08 | PN- Nephrology ---
Assessment/Plan Nephrology Assessment: ESRD. Comfortable. For dialysis later. Steve Madrigal MD Suggestion: . Subjective Subjective: Pt comfortable. For dialysis later Objective Vital Signs and I&Os M NAD 168/96 80 98.6 Lungs clear Cor RRR Abd soft Ext neg edema Results Pertinent Lab Results: Laboratory Tests 08/31 1330 Chemistry Sodium (137 - 145 mmol/L) 136 L Potassium (3.5 - 5.1 mmol/L) 5.3 H Chloride (98 - 107 mmol/L) 94 L Carbon Dioxide (22 - 30 mmol/L) 28 Anion Gap (5 - 16) 14 BUN (9 - 20 mg/dL) 46 H Creatinine (0.7 - 1.2 mg/dL) 8.1 *H Estimated GFR (>60 ml/min) 7 L BUN/Creatinine Ratio (7 - 25 %) 5.7 L Glucose (65 - 99 mg/dL) 148 H Calcium (8.4 - 10.2 mg/dL) 8.2 L Hematology CBC w Diff NO MAN DIFF REQ WBC (4.8 - 10.8 /CUMM) 7.4 RBC (4.70 - 6.10 /CUMM) 3.52 L Hgb (14.0 - 18.0 G/DL) 10.1 L Hct (42 - 52 %) 30.9 L MCV (80.0 - 94.0 FL) 87.8 MCH (27.0 - 31.0 PG) 28.7 MCHC (33.0 - 37.0 G/DL) 32.7 L RDW (11.5 - 14.5 %) 16.6 H Plt Count (130 - 400 /CUMM) 321 MPV (7.4 - 10.4 FL) 7.8 Gran % (42.2 - 75.2 %) 72.4 Lymphocytes % (20.5 - 51.1 %) 15.7 L Monocytes % (1.7 - 9.3 %) 5.3 Eosinophils % (0 - 5 %) 5.8 H Basophils % (0.0 - 2.0 %) 0.8 Absolute Granulocytes (1.4 - 6.5 /CUMM) 5.4 Absolute Lymphocytes (1.2 - 3.4 /CUMM) 1.2 Absolute Monocytes (0.10 - 0.60 /CUMM) 0.4 Absolute Eosinophils (0.0 - 0.7 /CUMM) 0.4 Absolute Basophils (0.0 - 0.2 /CUMM) 0.1
[2017-09-03 13:41] LABS: ABSOLUTE BASOPHIL COUNT 0.1 /CUMM (0.0-0.2); ABSOLUTE EOSINOPHIL COUNT 0.5 /CUMM (0.0-0.7); ABSOLUTE GRANULOCYTE CT 5.5 /CUMM (1.4-6.5); ABSOLUTE LYMPH COUNT 1.4 /CUMM (1.2-3.4); ABSOLUTE MONOCYTE COUNT 0.7 /CUMM (0.10-0.60); BASOPHIL % 0.9 % (0.0-2.0); EOSINOPHIL % 6.2 % (0-5); GRANULOCYTE % 67.9 % (42.2-75.2); HEMATOCRIT 26.8 % (42-52); MEAN CORPUSCULAR HGB 28.9 PG (27.0-31.0); MEAN CORPUSCULAR HGB CONC 33.3 G/DL (33.0-37.0); MEAN CORPUSCULAR VOLUME 86.6 FL (80.0-94.0); MEAN PLATELET VOLUME 7.6 FL (7.4-10.4); PLATELET COUNT 255 /CUMM (130-400); RBC DISTRIBUTION WIDTH 16.4 % (11.5-14.5); WHITE BLOOD CELL COUNT 8.1 /CUMM (4.8-10.8)
[2017-09-03 20:40] VITALS: BP 180/100
[2017-09-03 22:09] VITALS: BP 180/94
[2017-09-04 01:02] VITALS: BP 152/74
[2017-09-04 06:25] VITALS: BP 146/100
--- NOTE | 2017-09-04 10:09 | PN- Att Addend ---
Attending Addendum Attending Brief Note Yesterday at dialysis had high blood pressure and it potassium after treatments and extra blood pressure medication the blood pressure improved, is acceptable this morning area no other changes. Disposition plans continue and hopefully soon he will have a bed available. Intake & Output 09/04 1600 09/04 0400 09/03 1600 09/03 0400 09/02 1600 09/02 0400 Intake Total 120 120 805 500 480 400 Output Total 0 150 0 Balance 120 120 805 350 480 400 Intake, 5 Dialysate Intake, Oral 120 120 800 500 480 400 Number 0 Bowel Movements Output, Urine 0 150 0 Patient 232 lb 230 lb Weight Weight Standing Scale Bed scale Measurement Method Current Medications Sig/Grace Start time Last Medication Dose Route Stop Time Status Admin Acetaminophen 650 MG Q6P PRN 08/21 06 AC PO Aripiprazole 400 MG Q28D 08/22 1000 AC 08/22 IM 1323 Aspirin Buffered 81 MG 0800 08/21 0800 AC 09/04 PO 0830 Atorvastatin Calcium 40 MG 1700 08/21 1700 AC 09/03 PO 1832 Benztropine Mesylate 0.5 MG BID 08/21 09 AC 09/04 PO 0834 Calcium Carbonate 500 MG .STK-MED ONE 09/03 1130 DC PO 09/03 1131 Calcium Carbonate 500 MG TID PRN 08/25 0930 AC 09/03 PO 1132 Cinacalcet 30 MG DAILY 08/21 0900 AC 09/04 PO 0835 Furosemide 80 MG 0800,2200 08/21 0800 AC 09/04 PO 0830 Gabapentin 300 MG AT BEDTIME 08/21 2100 AC 09/03 PO 2032 Heparin Sodium 5,000 UNIT Q8 08/21 06 AC 09/02 (Porcine) SC 0558 Hydralazine HCl 20 MG ONCE ONE 09/03 2345 DC 09/04 PO 09/03 2346 0002 Hydralazine HCl 20 MG BID 08/21 09 AC 09/04 PO 0832 Labetalol HCl 100 MG ONCE PRN 08/29 1630 AC 08/31 PO 1642 Labetalol HCl 100 MG BID 08/21 0900 AC 09/04 PO 0836 Lamotrigine 50 MG 1000 08/22 1000 DC 09/04 PO 09/04 1001 0838 Multivitamins 1 TAB 1000 08/21 1000 AC 09/04 PO 0838 Nitroglycerin 0.4 MG DAILY NEEDED PRN 08/21 0300 AC TOP Ondansetron HCl 4 MG ONCE ONE 09/03 1230 DC 09/03 PO 09/03 1231 1230 Oxcarbazepine 600 MG BID 08/21 899 AC 09/04 PO 0837 Propranolol HCl 10 MG ONCE ONE 09/03 1815 DC 09/03 PO 09/03 1816 1700 Propranolol HCl 10 MG BID 08/21 09 AC 09/03 PO 1834 Quetiapine Fumarate 400 MG QPM 08/22 2100 AC 09/03 PO 203 Sevelamer Carbonate 2,400 MG TIDAC 08/21 08 AC 09/04 PO 0831 Sevelamer Carbonate 1,600 MG Q4P PRN 08/21 0300 AC 08/30 PO 194 Tiotropium [place] 1 PUF DAILY 08/21 899 AC 09/04 INH 0836 Laboratory Tests 09/03/17 1305: Anion Gap 14, Estimated GFR 6 L, BUN/Creatinine Ratio 6.6 L, Glucose 103 H, Calcium 8.2 L, CBC w Diff NO MAN DIFF REQ, RBC 3.10 L, MCV 86.6, MCH 28.9, MCHC 33.3, RDW 16.4 H, MPV 7.6, Gran % 67.9, Lymphocytes % 16.9 L, Monocytes % 8.1, Eosinophils % 6.2 H, Basophils % 0.9, Absolute Granulocytes 5.5, Absolute Lymphocytes 1.4, Absolute Monocytes 0.7 H, Absolute Eosinophils 0.5, Absolute Basophils 0.1 Vital Signs Date Time Temp Pulse Resp B/P B/P Pulse O2 O2 Flow FiO2 Mean Ox Delivery Rate 09/05 835 86 166/84 09/05 831 86 166/84 09/04 624 97.8 75 20 146/100 97 Room Air 09/04 0102 72 152/74 09/04 0002 82 180/110 09/03 2208 82 180/94 09/04 2039 97.4 79 20 180/100 98 Room Air 09/04 2031 79 180/100 09/03 1834 190/100 09/03 183 80 190/100 09/03 1700 88 200/114
[2017-09-04 15:14] VITALS: BP 172/102
[2017-09-04 22:01] VITALS: BP 180/100
[2017-09-05 06:05] VITALS: BP 164/100
[2017-09-05 13:35] LABS: ABSOLUTE BASOPHIL COUNT 0 /CUMM (0.0-0.2); ABSOLUTE EOSINOPHIL COUNT 0.4 /CUMM (0.0-0.7); ABSOLUTE LYMPH COUNT 1.4 /CUMM (1.2-3.4); ABSOLUTE MONOCYTE COUNT 0.6 /CUMM (0.10-0.60); BASOPHIL % 0.7 % (0.0-2.0); EOSINOPHIL % 6.5 % (0-5); GRANULOCYTE % 62.2 % (42.2-75.2); HEMATOCRIT 27.1 % (42-52); MEAN CORPUSCULAR HGB 28.5 PG (27.0-31.0); MEAN CORPUSCULAR HGB CONC 32.5 G/DL (33.0-37.0); MEAN CORPUSCULAR VOLUME 87.8 FL (80.0-94.0); MEAN PLATELET VOLUME 7.7 FL (7.4-10.4); PLATELET COUNT 261 /CUMM (130-400); RBC DISTRIBUTION WIDTH 16.5 % (11.5-14.5); RED BLOOD CELL CT 3.09 /CUMM (4.70-6.10); WHITE BLOOD CELL COUNT 6.5 /CUMM (4.8-10.8)
--- NOTE | 2017-09-05 14:33 | PN- Nephrology ---
Assessment/Plan Nephrology Assessment: ESRD. Hyperkalemia again. will change bath to 1K for remainder of Rx. Discussed diet with patient. Please ensure he remains on 2g Krestricted diet (no outside foods). Will recheck labs with dialysis Sunday. Steve Madrigal MD. Suggestion: . Subjective Subjective: Mr. Sanches is on dialysis now. I saw him earlier when he started dialysis. I am now called for K of 6.5. Objective Vital Signs and I&Os M Comfortable 170/90 82 97.5 Lungs clear Cor RRR Abd soft Ext neg edema Results Pertinent Lab Results: Laboratory Tests 09/05 09/03 1254 1305 Chemistry Sodium (137 - 145 mmol/L) 132 L 130 L Potassium (3.5 - 5.1 mmol/L) 6.6 *H 6.5 *H Chloride (98 - 107 mmol/L) 92 L 91 L Carbon Dioxide (22 - 30 mmol/L) 27 25 Anion Gap (5 - 16) 13 14 BUN (9 - 20 mg/dL) 51 H 61 H Creatinine (0.7 - 1.2 mg/dL) 8.0 *H 9.3 *H Estimated GFR (>60 ml/min) 7 L 6 L BUN/Creatinine Ratio (7 - 25 %) 6.4 L 6.6 L Glucose (65 - 99 mg/dL) 101 H 103 H Calcium (8.4 - 10.2 mg/dL) 8.1 L 8.2 L Phosphorus (2.5 - 4.5 mg/dL) 3.4 Magnesium (1.6 - 2.3 mg/dL) 2.1 Albumin (3.5 - 5.0 g/dL) 3.9 Hematology CBC w Diff NO MAN DIFF REQ NO MAN DIFF REQ WBC (4.8 - 10.8 /CUMM) 6.5 8.1 RBC (4.70 - 6.10 /CUMM) 3.09 L 3.10 L Hgb (14.0 - 18.0 G/DL) 8.8 L 8.9 L Hct (42 - 52 %) 27.1 L 26.8 L MCV (80.0 - 94.0 FL) 87.8 86.6 MCH (27.0 - 31.0 PG) 28.5 28.9 MCHC (33.0 - 37.0 G/DL) 32.5 L 33.3 RDW (11.5 - 14.5 %) 16.5 H 16.4 H Plt Count (130 - 400 /CUMM) 261 255 MPV (7.4 - 10.4 FL) 7.7 7.6 Gran % (42.2 - 75.2 %) 62.2 67.9 Lymphocytes % (20.5 - 51.1 %) 21.0 16.9 L Monocytes % (1.7 - 9.3 %) 9.6 H 8.1 Eosinophils % (0 - 5 %) 6.5 H 6.2 H Basophils % (0.0 - 2.0 %) 0.7 0.9 Absolute Granulocytes (1.4 - 6.5 /CUMM) 4.0 5.5 Absolute Lymphocytes (1.2 - 3.4 /CUMM) 1.4 1.4 Absolute Monocytes (0.10 - 0.60 /CUMM) 0.6 0.7 H Absolute Eosinophils (0.0 - 0.7 /CUMM) 0.4 0.5 Absolute Basophils (0.0 - 0.2 /CUMM) 0 0.1
--- NOTE | 2017-09-05 19:30 | PN- Att Addend ---
Attending Addendum Attending Brief Note Much better Had significant hyperkalemia Patient is noncompliant Ongoing dialysis Vital signs stable Chest clear Abdominal exam soft No significant edema Intake & Output 09/05 1600 09/05 0800 05 0000 Intake Total 780 300 Output Total Balance 780 300 Intake, Oral 780 300 Number 0 Bowel Movements Patient 231 lb Weight Current Medications Sig/Grace Start time Last Medication Dose Route Stop Time Status Admin Acetaminophen 650 MG Q6P PRN 08/21 06 AC PO Aripiprazole 400 MG Q28D 08/22 1000 AC 08/22 IM 1323 Aspirin Buffered 81 MG 0800 08/21 0800 AC 09/05 PO 0855 Atorvastatin Calcium 40 MG 1700 08/21 1700 AC 09/05 PO 1739 Benztropine Mesylate 0.5 MG BID 08/21 09 AC 09/05 PO 0855 Calcium Carbonate 500 MG TID PRN 08/25 0930 AC 09/03 PO 1132 Cinacalcet 30 MG DAILY 08/21 09 AC 09/05 PO 0854 Furosemide 80 MG 0800,0 08/21 08 AC 09/05 PO 0853 Gabapentin 300 MG AT BEDTIME 08/21 2100 AC 09/04 PO 2120 Heparin Sodium 5,000 UNIT Q8 08/21 06 AC 09/04 (Porcine) SC 2121 Hydralazine HCl 20 MG TID 09/04 2100 AC 09/05 PO 1611 Labetalol HCl 100 MG ONCE PRN 08/29 1630 AC 09/05 PO 1611 Labetalol HCl 100 MG BID 08/21 0900 AC 09/05 PO 0855 Multivitamins 1 TAB 1000 08/21 1000 AC 09/05 PO 0854 Nitroglycerin 0.4 MG DAILY NEEDED PRN 08/21 0300 AC TOP Oxcarbazepine 600 MG BID 08/21 09 AC 09/05 PO 0854 Patient Medication 1 ED ONE ONE 09/05 1230 DC Teaching ED 09/05 1231 Propranolol HCl 10 MG BID 08/21 09 AC 09/05 PO 0855 Quetiapine Fumarate 400 MG QPM 08/22 2100 AC 09/04 PO 2120 Sevelamer Carbonate 2,400 MG TIDAC 08/21 0800 AC 09/05 PO 1739 Sevelamer Carbonate 1,600 MG Q4P PRN 08/21 0300 AC 08/30 PO 1942 Tiotropium [place] 1 PUF DAILY 08/21 0900 AC 09/05 INH 0853 Laboratory Tests 09/05 09/05 1655 1254 Chemistry Sodium (137 - 145 mmol/L) 132 L Potassium (3.5 - 5.1 mmol/L) 6.6 *H Chloride (98 - 107 mmol/L) 92 L Carbon Dioxide (22 - 30 mmol/L) 27 Anion Gap (5 - 16) 13 BUN (9 - 20 mg/dL) 15 51 H Creatinine (0.7 - 1.2 mg/dL) 8.0 *H Estimated GFR (>60 ml/min) 7 L BUN/Creatinine Ratio (7 - 25 %) 6.4 L Glucose (65 - 99 mg/dL) 101 H Calcium (8.4 - 10.2 mg/dL) 8.1 L Phosphorus (2.5 - 4.5 mg/dL) 3.4 Magnesium (1.6 - 2.3 mg/dL) 2.1 Albumin (3.5 - 5.0 g/dL) 3.9 Hematology CBC w Diff NO MAN DIFF REQ WBC (4.8 - 10.8 /CUMM) 6.5 RBC (4.70 - 6.10 /CUMM) 3.09 L Hgb (14.0 - 18.0 G/DL) 8.8 L Hct (42 - 52 %) 27.1 L MCV (80.0 - 94.0 FL) 87.8 MCH (27.0 - 31.0 PG) 28.5 MCHC (33.0 - 37.0 G/DL) 32.5 L RDW (11.5 - 14.5 %) 16.5 H Plt Count (130 - 400 /CUMM) 261 MPV (7.4 - 10.4 FL) 7.7 Gran % (42.2 - 75.2 %) 62.2 Lymphocytes % (20.5 - 51.1 %) 21.0 Monocytes % (1.7 - 9.3 %) 9.6 H Eosinophils % (0 - 5 %) 6.5 H Basophils % (0.0 - 2.0 %) 0.7 Absolute Granulocytes (1.4 - 6.5 /CUMM) 4.0 Absolute Lymphocytes (1.2 - 3.4 /CUMM) 1.4 Absolute Monocytes (0.10 - 0.60 /CUMM) 0.6 Absolute Eosinophils (0.0 - 0.7 /CUMM) 0.4 Absolute Basophils (0.0 - 0.2 /CUMM) 0 Vital Signs Date Time Temp Pulse Resp B/P B/P Pulse O2 O2 Flow FiO2 Mean Ox Delivery Rate 09/05 1611 75 210/105 09/05 1611 75 210/105 09/05 0855 82 170/90 / 0855 82 170/90 09/05 0855 82 170/90 09/05 0605 97.5 75 18 164/100 99 Room Air 09/05 0600 Room Air 09/04 2201 99.0 73 18 180/100 97 /08 2120 75 180/100 09/04 2118 75 180/100 / 2119 75 180/100 General Appearance: Alert, Oriented X3, No Acute Distress Cardiovascular: Regular Rate, Normal S1, Normal S2, No Murmurs Lungs: Normal Air Movement Abdomen: Soft, No Tenderness, No Hepatospenomegaly Neurological: Strength at 5/5 X4 Ext, Normal Tone, Sensation Intact, Cranial Nerves 3-12 NL Extremities: No Edema, Normal Pulses 61 yo male with past medical history of ESRD on dialysis, CHF ef 45-50%, hypertension, hyperlipidemia, bipolar disorder, status post recent cardiac catheter and stents at [facility] in February 2017, cardiac arrest while in the catheter lab requiring ICU stay, hospital stay 3 months for acute blood loss anemia and CHF exacerbation and dialysis, was discharged about 1 months ago came to the ambulance with chief complaint of altered mental status. Assessment and plan: Altered mental status secondary due to uremia [end-stage renal disease missed dialysis] History of bipolar, hypertension, COPD, CHF. now resolved * Patient getting dialysis Sunday, Sunday, Sunday. Patient being followed by nephrology. * Continue home medications. * 1200 fluid restriction and renal diet. * Hyperkalemia dietary noncompliance patient advised to be on a strict diet * Patient was seen by psychiatry and continue his psych medication * HTN stable. Plan-discharge disposition will be discussed with the case management.
[2017-09-05 22:49] VITALS: BP 204/96
[2017-09-06 06:20] VITALS: BP 178/86
--- NOTE | 2017-09-06 12:11 | PN- Att Addend ---
Attending Addendum Attending Brief Note No new complaints, blood pressure little better today. Has had some trouble with hyperkalemia but that's taking care when he goes for hemodialysis no other changes. Continue present treatments monitor and blood pressure and disposition plans still continue. Intake & Output 09/06 1600 09/06 0400 09/05 1600 09/05 0400 09/04 1600 09/04 0400 Intake Total 200 500 741 177 0196 120 Output Total 151 Balance 200 349 299 939 5054 120 Intake, Oral 200 500 146 520 3609 120 Number 0 0 Bowel Movements Output, Stool 1 Output, Urine 150 Patient 233 lb 226 lb 231 lb 232 lb Weight Weight Standing Scale Bed scale Standing Scale Measurement Method Current Medications Sig/Grace Start time Last Medication Dose Route Stop Time Status Admin Acetaminophen 650 MG Q6P PRN 08/21 06 AC PO Aripiprazole 400 MG Q28D 08/22 1000 AC 08/22 IM 1323 Aspirin Buffered 81 MG 0800 08/21 0800 AC 09/06 PO 0837 Atorvastatin Calcium 40 MG 1700 08/21 1700 AC 09/05 PO 1739 Benztropine Mesylate 0.5 MG BID 08/21 09 AC 09/06 PO 0836 Calcium Carbonate 500 MG TID PRN 08/25 0930 AC 09/03 PO 1132 Cinacalcet 30 MG DAILY 08/21 09 AC 09/06 PO 0837 Furosemide 80 MG 0800,2200 08/21 08 AC 09/06 PO 0837 Gabapentin 300 MG AT BEDTIME 08/21 2100 AC 09/05 PO 2139 Heparin Sodium 5,000 UNIT Q8 08/21 06 AC 09/05 (Porcine) SC 2140 Hydralazine HCl 20 MG TID 09/04 2100 AC 09/06 PO 0836 Labetalol HCl 100 MG ONCE PRN 08/29 1630 AC 09/05 PO 1611 Labetalol HCl 100 MG BID 08/21 09 AC 09/06 PO 0836 Multivitamins 1 TAB 1000 08/21 1000 AC 09/06 PO 0842 Nitroglycerin 0.4 MG DAILY NEEDED PRN 08/21 0300 AC TOP Oxcarbazepine 600 MG BID 08/21 09 AC 09/06 PO 0836 Patient Medication 1 ED ONE ONE 09/05 1230 DC Teaching ED 09/05 1231 Propranolol HCl 10 MG BID 08/21 899 AC 09/06 PO 0836 Quetiapine Fumarate 400 MG QPM 08/22 2100 AC 09/05 PO 2138 Sevelamer Carbonate 2,400 MG TIDAC 08/21 0800 AC 09/06 PO 1202 Sevelamer Carbonate 1,600 MG Q4P PRN 08/21 0300 AC 08/30 PO 194 Tiotropium [place] 1 PUF DAILY 08/21 0900 AC 09/06 INH 0835 Vital Signs Date Time Temp Pulse Resp B/P B/P Pulse O2 O2 Flow FiO2 Mean Ox Delivery Rate 09/07 835 92 160/88 09/06 0836 92 160/88 09/07 835 92 160/88 09/06 0620 97.9 85 18 178/86 97 Room Air 09/05 2248 98.6 81 18 204/96 98 Room Air 09/05 2140 81 204/96 09/05 2138 81 204/96 09/05 2138 81 204/81 09/05 1611 75 210/105 09/05 1611 75 210/105
[2017-09-06 14:35] VITALS: BP 180/95
[2017-09-06 20:54] VITALS: BP 196/100
[2017-09-06 23:00] VITALS: BP 160/98
[2017-09-07 06:45] VITALS: BP 162/94
[2017-09-07 08:57] LABS: ABSOLUTE BASOPHIL COUNT 0.1 /CUMM (0.0-0.2); ABSOLUTE EOSINOPHIL COUNT 0.4 /CUMM (0.0-0.7); ABSOLUTE GRANULOCYTE CT 4.7 /CUMM (1.4-6.5); ABSOLUTE LYMPH COUNT 1.4 /CUMM (1.2-3.4); ABSOLUTE MONOCYTE COUNT 0.6 /CUMM (0.10-0.60); BASOPHIL % 0.7 % (0.0-2.0); EOSINOPHIL % 5.5 % (0-5); GRANULOCYTE % 66.3 % (42.2-75.2); HEMATOCRIT 25.9 % (42-52); MEAN CORPUSCULAR HGB 28.8 PG (27.0-31.0); MEAN CORPUSCULAR HGB CONC 32.8 G/DL (33.0-37.0); MEAN CORPUSCULAR VOLUME 87.8 FL (80.0-94.0); MEAN PLATELET VOLUME 7.8 FL (7.4-10.4); PLATELET COUNT 254 /CUMM (130-400); RBC DISTRIBUTION WIDTH 16.8 % (11.5-14.5); RED BLOOD CELL CT 2.95 /CUMM (4.70-6.10); WHITE BLOOD CELL COUNT 7.1 /CUMM (4.8-10.8)
--- NOTE | 2017-09-07 11:06 | PN- Att Addend ---
Attending Addendum Attending Brief Note No new issues. Hemodialysis in progress patient is anxious to leave the hospital maybe an opening in one of the facilities. Will check with power of casing soaker, if agreeable and we'll start disposition plans vital signs stable no fever no changes on physical. Vital Signs Date Time Temp Pulse Resp B/P B/P Pulse O2 O2 Flow FiO2 Mean Ox Delivery Rate 09/07 0545 97.6 80 18 162/94 98 Room Air 09/06 2300 160/98 09/06 2053 97.8 80 20 196/100 97 Room Air 09/07 2051 80 196/100 09/06 2050 80 196/100 09/06 2050 80 196/100 09/06 1517 82 178/86 09/06 1435 97.5 85 18 180/95 99 Room Air 09/06 1251 Room Air Room Air Intake & Output 09/07 1600 09/07 0400 09/06 1600 09/06 0400 09/05 1600 09/05 0400 Intake Total 100 200 680 500 780 300 Output Total 151 Balance 100 200 680 349 780 300 Intake, Oral 100 200 680 500 780 300 Number 0 Bowel Movements Output, Stool 1 Output, Urine 150 Patient 240 lb 233 lb 226 lb 231 lb Weight Weight Standing Scale Standing Scale Bed scale Measurement Method Current Medications Sig/Grace Start time Last Medication Dose Route Stop Time Status Admin Acetaminophen 650 MG Q6P PRN 08/21 599 AC PO Aripiprazole 400 MG Q28D 08/22 1000 AC 08/22 IM 1323 Aspirin Buffered 81 MG 08/21 08 AC 09/06 PO 0837 Atorvastatin Calcium 40 MG 1700 08/21 1700 AC 09/06 PO 1720 Benztropine Mesylate 0.5 MG BID 08/21 899 AC 09/06 PO 2050 Calcium Carbonate 500 MG TID PRN 08/25 0930 AC 09/03 PO 1132 Cinacalcet 30 MG DAILY 08/21 899 AC 09/06 PO 836 Furosemide 80 MG 0800,0 08/22 799 AC 09/06 PO 2051 Gabapentin 300 MG AT BEDTIME 08/21 2099 AC 09/06 PO 2050 Heparin Sodium 5,000 UNIT Q8 08/21 599 AC 09/07 (Porcine) SC 0539 Hydralazine HCl 20 MG TID 09/04 2099 AC 09/06 PO 2051 Labetalol HCl 100 MG ONCE PRN 08/29 1630 AC 09/05 PO 1611 Labetalol HCl 100 MG BID 08/21 09 AC 09/06 PO 2050 Multivitamins 1 TAB 1000 08/21 1000 AC 09/06 PO 0842 Nitroglycerin 0.4 MG DAILY NEEDED PRN 08/21 0300 AC TOP Oxcarbazepine 600 MG BID 08/21 09 AC 09/06 PO 2049 Propranolol HCl 10 MG BID 08/21 09 AC 09/06 PO 2050 Quetiapine Fumarate 400 MG QPM 08/22 2100 AC 09/06 PO 2050 Sevelamer Carbonate 2,400 MG TIDAC 08/21 08 AC 09/06 PO 1720 Sevelamer Carbonate 1,600 MG Q4P PRN 08/21 030 AC 08/30 PO 194 Tiotropium [place] 1 PUF DAILY 08/21 899 AC 09/06 INH 0835 Laboratory Tests 09/07/17 0810: Anion Gap 13, Estimated GFR 8 L, BUN/Creatinine Ratio 5.6 L, CBC w Diff NO MAN DIFF REQ, RBC 2.95 L, MCV 87.8, MCH 28.8, MCHC 32.8 L, RDW 16.8 H, MPV 7.8, Gran % 66.3, Lymphocytes % 19.3 L, Monocytes % 8.2, Eosinophils % 5.5 H, Basophils % 0.7, Absolute Granulocytes 4.7, Absolute Lymphocytes 1.4, Absolute Monocytes 0.6, Absolute Eosinophils 0.4, Absolute Basophils 0.1 09/05/17 1655: 09/05/17 1254: Anion Gap 13, Estimated GFR 7 L, BUN/Creatinine Ratio 6.4 L, Glucose 101 H, Calcium 8.1 L, Phosphorus 3.4, Magnesium 2.1, Albumin 3.9, CBC w Diff NO MAN DIFF REQ, RBC 3.09 L, MCV 87.8, MCH 28.5, MCHC 32.5 L, RDW 16.5 H, MPV 7.7, Gran % 62.2, Lymphocytes % 21.0, Monocytes % 9.6 H, Eosinophils % 6.5 H, Basophils % 0.7, Absolute Granulocytes 4.0, Absolute Lymphocytes 1.4, Absolute Monocytes 0.6, Absolute Eosinophils 0.4, Absolute Basophils 0
--- NOTE | 2017-09-07 11:47 | PN- Nephrology ---
Assessment/Plan Nephrology Assessment: ESRD, bipolar. non compliant with f/u with outpatient dialysis when discharged home (missed the two weeks prior to admission). Going to SNF. Suspect he will be better there. Pt on dialysis now. I counselled the patient on fluid and dietary restriction. Steve Martinez Suggestion: . Subjective Subjective: Patient on dialysis now. Plans for discharge to SNF noted. Objective Vital Signs and I&Os M NAD 162/94 80 97 Lungs clear Cor RRR Abd soft Ext 1+edema Results Pertinent Lab Results: 134 / 96 / 41 / 5.6 / 25 / 7.3
[2017-09-07 12:48] VITALS: BP 214/112
[2017-09-07 15:56] VITALS: BP 178/98
== END 2017-09-07 18:35 | DRG 70 ==
LOC: ERH 22:40 → 2NA 08-21 01:14 → ERHI 08-21 01:14 → ENRESERV 08-21 01:38 → 2NA 08-21 02:15
PROVIDERS: Internal Medicine; Internal Medicine Nephrology; Pediatrics; Student in an Organized Health Care Education/Training Program
PROC: 5A1D70Z Performance of Urinary Filtration, Intermittent, Less than 6 Hours Per Day (ICD-10-PCS; principal; 2017-08-21)
DX: G93.49 Other encephalopathy (principal); N18.6 End stage renal disease; I13.2 Hypertensive heart and chronic kidney disease with heart failure and with stage 5 chronic kidney disease, or end stage renal disease; E23.0 Hypopituitarism; E87.5 Hyperkalemia; F31.2 Bipolar disorder, current episode manic severe with psychotic features; N25.81 Secondary hyperparathyroidism of renal origin; I50.20 Unspecified systolic (congestive) heart failure; R41.82 Altered mental status, unspecified; Z99.2 Dependence on renal dialysis; Z91.15 Patient's noncompliance with renal dialysis; J44.9 Chronic obstructive pulmonary disease, unspecified; D30.00 Benign neoplasm of unspecified kidney; E66.9 Obesity, unspecified; Z68.30 Body mass index [BMI] 30.0-30.9, adult; F10.10 Alcohol abuse, uncomplicated; F12.10 Cannabis abuse, uncomplicated; Z88.8 Allergy status to other drugs, medicaments and biological substances; Z79.82 Long term (current) use of aspirin; Z79.891 Long term (current) use of opiate analgesic; E78.5 Hyperlipidemia, unspecified; F41.9 Anxiety disorder, unspecified; E21.3 Hyperparathyroidism, unspecified
CPT/HCPCS: 2NAP; 87075; 36415; 36592; 71045; 80307; 82436; 93005; 93010; 97116-GO; 97161-GP; G0480; J1644; J2405; J3101